=== PATIENT | male | born 1965 | race Caucasian/White ===

== ENCOUNTER 2016-07-09 11:57 | Emergency (ER) | payer MEDICARE, OTHER ==
[~2016-07-09] VITALS: Ht 175.3 cm; Wt 69.0 kg
[~2016-07-09 11:57] MED LIST: ARIP1TAB87 PO; ASPI325T PO; BUSP30TA PO; FLUO20SO3 PO; SIMV40TA PO; TAB-TAB PO; TRAZ100 PO
[2016-07-09 12:14] VITALS: BP 130/82; PULSE 77; RESP 18; TEMP 98.9; O2SAT 95
--- NOTE | 2016-07-09 12:28 | PD ---
HPI Chief Complaint: Edema Time Seen by Provider: 12:24 Travel History International Travel<30 days: No Contact w/Intl Traveler<30days: No Traveled to known affect area: No History of Present Illness HPI 50-year-old male with history of lung cancer currently awaiting chemotherapy, presents to the ER today because he has been having left ankle pains and swelling, had an ultrasound done today from [facility] showing a DVT. His primary care physician sent him in for further evaluation. He denies any new chest pains, shortness of breath, or any other symptoms. Modifying Factors: None Associated Signs & Symptoms: Left leg DVT Risk Factors: Lung cancer PFSH Past Medical History Heart Rhythm Problems: No Cardiac Catheterization: Yes Cardiovascular Problems: Yes (STENTS X 1) High Cholesterol: Yes Chest Pain: Yes Congestive Heart Failure: No Diabetes: No Myocardial Infarction: Yes Past Surgical History Coronary Artery Bypass Graft: No Coronary Stent: Yes Other Surgery: Yes (BILAT INGUINAL HERNIA REPAIR, SKIN CA REMOVAL) Social History Alcohol Use: No Tobacco Use: Yes (2 PPD X 30 YEARS) Substance Use: No Allergies-Medications (Allergen,Severity, Reaction): Coded Allergies: No Known Allergies (Unverified , 07/09/16) Reported Meds & Prescriptions Reported Meds & Active Scripts Active Reported Xanax (Alprazolam) 0.25 Mg Tab 0.25 Mg PO Q8H PRN Symbicort Inh (Budesonide/Formoterol Fumarate) 160-4.5 Mcg/Act Aero 2 Puff INH Q12HR Spiriva Handihaler (Tiotropium Inh) 18 Mcg Cap 18 Mcg INH DAILY 1 capsule = 18 mcg Ventolin Hfa 18 GM Inh (Albuterol Sulfate) 90 Mcg/Act Aer 2 Puff INH Q4-6H PRN Gabapentin 300 Mg Cap 300 Mg PO HS Prozac (Fluoxetine HCl) 40 Mg Cap 60 Mg PO DAILY Aspirin 325 Mg Tab 325 Mg PO HS Abilify (Aripiprazole) 15 Mg Tab 15 Mg PO HS Trazodone (Trazodone HCl) 100 Mg Tab 100 Mg PO HS Review of Systems Except as stated in HPI: all other systems reviewed are Neg Physical Exam Narrative GENERAL: Well-developed middle age white male patient currently not in acute distress. Awake and oriented 3. SKIN: Warm and dry. HEAD: Atraumatic. Normocephalic. EYES: Pupils equal and round. No scleral icterus. No injection or drainage. ENT: No nasal bleeding or discharge. Mucous membranes pink and moist. NECK: Trachea midline. No JVD. CARDIOVASCULAR: Regular rate and rhythm. No murmur appreciated. RESPIRATORY: No accessory muscle use. Clear to auscultation. Breath sounds equal bilaterally. GASTROINTESTINAL: Abdomen soft, non-tender, nondistended. Hepatic and splenic margins not palpable. MUSCULOSKELETAL: No obvious deformities. No clubbing. No cyanosis. No edema. NEUROLOGICAL: Awake and alert. No obvious cranial nerve deficits. Motor grossly within normal limits. Normal speech. PSYCHIATRIC: Appropriate mood and affect; insight and judgment normal. EXTREMITIES: No clubbing, cyanosis, or edema on the right leg. No joint tenderness, effusion, or edema noted. Mild left ankle area edema, mildly tender to palpation. Data Data Last Documented VS Vital Signs Date Time Temp Pulse Resp B/P Pulse Ox O2 Delivery O2 Flow Rate FiO2 07/09/16 12:27 96 Room Air 07/09/16 12:14 98.9 77 18 130/82 Orders Complete Blood Count With Diff (07/09/16 12:24) Basic Metabolic Panel (Bmp) (07/09/16 12:24) Prothrombin Time / Inr (Pt) (07/09/16 12:24) Act Partial Throm Time (Ptt) (07/09/16 12:24) Ct Pulmonary Angiogram (07/09/16 12:24) Iohexol 350 Inj (Omnipaque 350 Inj) (07/09/16 14:26) Labs Laboratory Tests Test 07/09/16 12:30 White Blood Count 9.4 TH/MM3 Red Blood Count 4.76 MIL/MM3 Hemoglobin 14.4 GM/DL Hematocrit 44.2 % Mean Corpuscular Volume 92.7 FL Mean Corpuscular Hemoglobin 30.3 PG Mean Corpuscular Hemoglobin 32.7 % Concent Red Cell Distribution Width 13.6 % Platelet Count 176 TH/MM3 Mean Platelet Volume 7.8 FL Neutrophils (%) (Auto) 75.1 % Lymphocytes (%) (Auto) 14.8 % Monocytes (%) (Auto) 6.2 % Eosinophils (%) (Auto) 2.2 % Basophils (%) (Auto) 1.7 % Neutrophils # (Auto) 7.0 TH/MM3 Lymphocytes # (Auto) 1.4 TH/MM3 Monocytes # (Auto) 0.6 TH/MM3 Eosinophils # (Auto) 0.2 TH/MM3 Basophils # (Auto) 0.2 TH/MM3 CBC Comment DIFF FINAL Differential Comment Prothrombin Time 11.4 SEC Prothromb Time International 1.0 RATIO Ratio Activated Partial 28.3 SEC Thromboplast Time Sodium Level 140 MEQ/L Potassium Level 4.9 MEQ/L Chloride Level 103 MEQ/L Carbon Dioxide Level 30.4 MEQ/L Anion Gap 7 MEQ/L Blood Urea Nitrogen 14 MG/DL Creatinine 1.20 MG/DL Estimat Glomerular Filtration 64 ML/MIN Rate Random Glucose 94 MG/DL Calcium Level 8.4 MG/DL [facility] Medical Decision Making Medical Screen Exam Complete: Yes Emergency Medical Condition: Yes Medical Record Reviewed: Yes Interpretation(s) Last [address] Angiography 07/09/16 1224 Signed Impressions: Service Date/Time: Saturday, July 09, 2016 13:59 - CONCLUSION: 1. 2.3 x 4.7 cm right upper lobe mass with extensive right hilar and mediastinal adenopathy highly suspicious for malignancy. Vitor Campbell MD Laboratory Tests Test 07/09/16 12:30 Neutrophils (%) (Auto) 75.1 % (16.0-70.0) Estimat Glomerular Filtration 64 ML/MIN (>89) Rate Calcium Level 8.4 MG/DL (8.5-10.1) Differential Diagnosis Left leg DVTrule out PE Narrative Course CTA shows mass in the lung but no signs of PE. Lab work is unremarkable. Case is discussed with Dr. Quiroga, patient's primary care doctor, and he is agreeable to having the patient take by mouth anticoagulants and follow-up with him. Return for any worsening in pain, swelling, shortness of breath, or new symptoms as needed. The plan has been discussed with the patient and he states understanding. Diagnosis Primary Impression: DVT (deep venous thrombosis) Med/Other Pt SpecificInfo: Prescription(s) given Scripts Rivaroxaban Starter Pack 15 & 20 mg (Xarelto Starter Pack 15 & 20 mg)1 Tab Tab1 Tab PO DIRECTED #1 PACK Ref 0 Prov:Jarrell Mendoza MD 07/09/16 Disposition: 01 DISCHARGE HOME Condition: Stable Jarrell Mendoza MD Jul 09, 2016 12:28
[2016-07-09 12:44] LABS: BASOPHIL # 0.2 TH/MM3 (0-0.2); BASOPHIL % 1.7 % (0.0-2.0); EOSINOPHIL # 0.2 TH/MM3 (0-0.4); EOSINOPHIL % 2.2 % (0.0-4.0); HEMATOCRIT 44.2 % (39.0-51.0); LYMPH % 14.8 % (9.0-44.0); LYMPHOCYTE # 1.4 TH/MM3 (1.0-4.8); MEAN CELL VOLUME 92.7 FL (80.0-100.0); MEAN CORPUSCULAR HEMOGLOBIN 30.3 PG (27.0-34.0); MEAN CORPUSCULAR HGB CONC 32.7 % (32.0-36.0); MONO % 6.2 % (0.0-8.0); NEUT % 75.1 % (16.0-70.0); PLATELET COUNT 176 TH/MM3 (150-450); RED BLOOD COUNT 4.76 MIL/MM3 (4.50-5.90); RED CELL DISTRIBUTION WIDTH 13.6 % (11.6-17.2); WHITE BLOOD COUNT 9.4 TH/MM3 (4.0-11.0)
[2016-07-09 12:48] LABS: HEMO FLAGS DIFF FINAL
[2016-07-09] MEDS ORDERED: SYMB160A INH (12:52)
[2016-07-09] MEDS ORDERED: ABIL15TA2 PO (12:52)
[2016-07-09] MEDS ORDERED: VENTAER INH (12:52)
[2016-07-09] MEDS ORDERED: GABA300C5 PO (12:52)
[2016-07-09] MEDS ORDERED: ASPI325T PO (12:52)
[2016-07-09] MEDS ORDERED: PROZ40CA PO (12:52)
[2016-07-09] MEDS ORDERED: SPIRCAP INH (12:52)
[2016-07-09] MEDS ORDERED: TRAZ100T4 PO (12:52)
[2016-07-09] MEDS ORDERED: ALPR.25 PO (12:52)
[2016-07-09 12:53] LABS: POTASSIUM 4.9 MEQ/L (3.5-5.1)
[2016-07-09 12:56] LABS: BICARBONATE 30.4 MEQ/L (21.0-32.0)
[2016-07-09 13:03] LABS: APTT (PATIENT) 28.3 SEC (24.3-30.1); PROTHROMBIN TIME - PATIENT 11.4 SEC (9.8-11.6)
[2016-07-09] MEDS ORDERED: IOHEXOL 350 MG/ML 10 ML VIAL (for RAD DIAG) IV ONE (14:26)
--- NOTE | 2016-07-09 14:35 | RADHPO ---
EXAM DATE/TIME: 07/09/2016 13:59 [facility] COMPARISON: No previous studies available for comparison. INDICATIONS : Evaluate for pulmonary embolism. Recent deep vein thrombosis diagnosis. IV CONTRAST: 65 cc Omnipaque 350 (iohexol) IV RADIATION DOSE: 10.00 CTDIvol (mGy) MEDICAL HISTORY : Cardiovascular disease. Carcinoma, lung. Deep venous thrombosis. SURGICAL HISTORY : Coronary artery stent. ENCOUNTER: Initial ACUITY: 1 day PAIN SCALE: 0/10 LOCATION: chest TECHNIQUE: Volumetric scanning of the chest was performed using a pulmonary embolism protocol MIP images were re constructed. Using automated exposure control and adjustment of the mA and/or kV according to patien t size, radiation dose was kept as low as reasonably achievable to obtain optimal diagnostic quality images. FINDINGS: The examination is of excellent diagnostic quality. No pulmonary embolus is identified. The exam demonstrates a 2.7 x 4.7 cm spiculated, partially cavitary mass in the right lung apex. In a ddition, the study demonstrates numerous enlarged nodes within the right srikanth, the anterior mediastin um and the middle mediastinum. The largest measures 2.3 cm. These findings are highly suspicious for malignancy. The lesion is in a location which would be readily amenable to CT-guided biopsy. The remainder of the pulmonary parenchyma demonstrates COPD changes. The limited as portions of upper abdomen are unremarkable. The visualized bony structures are grossly intact. CONCLUSION: 1. 2.3 x 4.7 cm right upper lobe mass with extensive right hilar and mediastinal adenopathy highly hernandez spicious for malignancy. Vitor Campbell MD on July 09, 2016 at 14:30 Board Certified Radiologist. This report was verified electronically.
[2016-07-09] MEDS ORDERED: RIVA1TAB PO (14:52)
[2016-07-09 15:00] VITALS: BP 127/81
== END 2016-07-09 15:11 | disposition home or self-care (01) ==
LOC: PHED 11:57
DX: I82.4Z2 Acute embolism and thrombosis of unspecified deep veins of left distal lower extremity (principal); E78.00 Pure hypercholesterolemia, unspecified; I25.2 Old myocardial infarction; C34.90 Malignant neoplasm of unspecified part of unspecified bronchus or lung; Z95.818 Presence of other cardiac implants and grafts; Z87.891 Personal history of nicotine dependence
CPT/HCPCS: 71275; 80048; 85025; 85610; 85730; 99284; Q9967

== ENCOUNTER 2016-08-13 06:41 | Day surgery (SDC) | payer MEDICARE, MEDICAID ==
[~2016-08-13] VITALS: Ht 172.7 cm; Wt 67.4 kg
[2016-08-13] VITALS (7 sets, daily range): BP systolic 130–148; BP diastolic 79–102; PULSE 72–111; RESP 18–20; TEMP 98.2–98.4; O2SAT 90–94
[~2016-08-13 06:41] MED LIST changes: +ABIL15TA2 PO; +ALPR.25 PO; -ARIP1TAB87 PO; -BUSP30TA PO; -FLUO20SO3 PO; +GABA300C5 PO; +PROZ40CA PO; +RIVA1TAB PO; -SIMV40TA PO; +SPIRCAP INH; +SYMB160A INH; -TAB-TAB PO; -TRAZ100 PO; +TRAZ100T4 PO; +VENTAER INH
[2016-08-13] MEDS ORDERED: APIX2.5T PO (07:42)
[2016-08-13] MEDS ORDERED: LEVO750T33 PO (07:43)
[2016-08-13] MEDS ORDERED: PERC10TA27 PO (07:44)
[2016-08-13] MEDS: CHLORHEXIDINE GLUCONATE 2 % 1 PACK (2 CLOTHS) TOPICAL SCH ×2 (07:58→08:27)
[2016-08-13] MEDS: POVIDONE IODINE 5% (ANTISEPSIS KIT) 4 APPLICATIONS EACH NARE SCH ×2 (07:58→08:27)
[2016-08-13] MEDS ORDERED: VANCOMYCIN 1000 MG/NS 250 ML - implanted port/tunneled catheter IV SCH ×2 (08:00)
[2016-08-13] MEDS ORDERED: SODIUM CHLORIDE 0.9% 1000 ML IV SCH (08:00)
[2016-08-13] MEDS ORDERED: ceFAZolin 2 GM PREMIX 50 ML - implanted port/tunneled catheter insertion IV SCH (08:00)
[2016-08-13] MEDS ORDERED: fentaNYL CITRATE 250 MCG/5 ML AMP ONE (09:05)
[2016-08-13] MEDS ORDERED: MIDAZOLAM HCL 5 MG/5 ML VIAL ONE (09:05)
[2016-08-13] MEDS ORDERED: LIDOCAINE 1%/EPINEPHrine 1:100,000 SOLN 20 ML VIAL ONE (09:15)
[2016-08-13] MEDS ORDERED: SODIUM CHLORIDE 0.9% FLUSH 10 ML FLUSH IVF PRN (10:30)
--- NOTE | 2016-08-13 10:47 | PD.RAD ---
Post Procedure Progress Note Pre Procedure Diagnosis: (1) Lung cancer Post Procedure Diagnosis: (1) Lung cancer Procedure Date: Aug 13, 2016 Supervising Radiologist: Ted Bell Proceduralist/Assist: RT Adalid(R) Anesthesia: Local, Analgesia, Conscious Sedation Plan of Activity Patient to Unit: ROPU Patient Condition: Good See PACS Report for procedural detail/treatment Central Venous Access Device Procedure 1 Right Internal Jugular Infusaport Placement single lumen Iraqi: 8 Ted Bell MD Aug 13, 2016 10:47
--- NOTE | 2016-08-14 12:26 | RADRPT ---
EXAM DATE/TIME: 08/13/2016 10:07 [facility] COMPARISON: No previous studies available for comparison. INDICATIONS : Patient with lung cancer in need of [id number] placement. MEDICAL HISTORY : CAD, [place], HLD, COPD, DVT, Osteoporosis, Lung cancer with mets SURGICAL HISTORY : Bilateral inguinal hernia repair, Colonoscopy, Cardiac stent ENCOUNTER: Initial ACUITY: 1 month PAIN SCORE: 0/10 FLUORO TIME: 0.5 minutes IMAGE SERIES: 1 SEDATION TIME: 45 minutes ACCESS: Right internal jugular vein SEDATION: 1.) 5 mg midazolam (Versed) IV 2.) 250 mcg fentanyl (Sublimaze) IV Prophylactic antibiotics were administered with appropriate pre-procedure timing. Vancomycin within 2 hours of procedure, Ancef (or alternative) within 1 hour of procedure. DEVICE: 1. 8 Marshallese single lumen Smart port with Vortex PROCEDURE : 1. Continuous pulse oximetry and EKG monitoring. 2. Intravenous conscious sedation. 3. Ultrasound guidance for venous access. 4. Fluoroscopic guided implantable central venous port placement. The patient was placed supine. The neck was prepped in sterile fashion. Full sterile technique was u sed, including cap, mask, sterile gloves and gown, and a large sterile sheet. Hand hygiene and 2% ch lorhexidine Betadine was utilized per protocol for cutaneous antisepsis with appropriate dry time for site. The skin and subcutaneous tissues were infiltrated with local anesthetic solution. Under direct ultrasound guidance, central venous access was accomplished in the targeted vessel. The ultrasound images depicting access guidance were stored and saved to PACS for permanent record. A s ubcutaneous pocket was created using blunt dissection. The port was introduced to the pocket. The c atheter tubing was fed through a subcutaneous tunnel to the venotomy site. The catheter tubing was c ut to a suitable length and then was introduced through a valved Peel-Away sheath and positioned with catheter tubing tip at the cavo-atrial junction level. The pocket incision was closed with subcutic ular Vicryl suture. Steri-Strips were applied. The port was flushed and locked with heparin solutio n per protocol. Sterile dressing was applied to the site. The patient tolerated the procedure well. Conscious sedation was performed with the prescribed dosages and duration as above in the presence of an independent trained radiology nurse to assist in the monitoring of the patient. EKG and oximetry remained stable throughout the procedure. The patient tolerated the procedure well and there were no complications. The patient was sent to post anesthesia recovery in stable condition. CONCLUSION: Uncomplicated ultrasound and fluoroscopic guided implanted central venous port catheter placement as described in detail above. An 8 Marshallese Power port was placed. Ted Bell MD on August 14, 2016 at 12:24 Board Certified Radiologist. This report was verified electronically.
== END 2016-08-13 12:35 | disposition home or self-care (01) ==
LOC: HROP 06:41 → HRIP 06:46 → HROP 12:35
PROVIDERS: ATTEND Internal Medicine Hematology & Oncology
DX: C34.90 Malignant neoplasm of unspecified part of unspecified bronchus or lung (principal); Z86.718 Personal history of other venous thrombosis and embolism; M81.0 Age-related osteoporosis without current pathological fracture; J44.9 Chronic obstructive pulmonary disease, unspecified; E78.5 Hyperlipidemia, unspecified; I25.10 Atherosclerotic heart disease of native coronary artery without angina pectoris; I25.2 Old myocardial infarction
CPT/HCPCS: 36561; 76937; 77001; 99152; 99153; C1788; J0690; J1642; J2250; J3010; J3370; J7030; J7050

== ENCOUNTER 2016-08-15 06:28 | Inpatient (IN) | payer MEDICARE, MEDICAID ==
[2016-08-15] VITALS (21 sets, daily range): BP systolic 121–165; BP diastolic 81–111; PULSE 96–118; RESP 18–45; TEMP 97.4–99.2; O2SAT 81–100
[~2016-08-15] VITALS: Ht 175.3 cm; Wt 80.6 kg
[~2016-08-15 06:28] MED LIST changes: +APIX2.5T PO; -ASPI325T PO; +LEVO750T33 PO; +PERC10TA27 PO; -RIVA1TAB PO
[2016-08-15] MEDS ORDERED: SODIUM CHLOR 0.9% 1000 ML IV SCH (07:15)
[2016-08-15] MEDS ORDERED: SODIUM CHLORIDE 0.9% FLUSH 10 ML FLUSH IV FLUSH PRN ×2 (07:15→12:15)
[2016-08-15] MEDS ORDERED: HYDR-3366 PO (07:41)
[2016-08-15] MEDS ORDERED: LIDOCAINE 1%/EPINEPHrine 1:100,000 SOLN 20 ML VIAL ONE (07:42)
--- NOTE | 2016-08-15 07:50 | RADRPT ---
EXAM DATE/TIME: 08/15/2016 07:12 [facility] COMPARISON: CHEST SINGLE AP, November 22, 2012, 6:36. CT PULMONARY ANGIOGRAM, July 09, 2016, 13:59. INDICATIONS : Post port placement on 08/13/16 MEDICAL HISTORY : CAD, [place], HLD, COPD, DVT, Osteoporosis, Lung cancer with mets SURGICAL HISTORY : Bilateral inguinal hernia repair, Colonoscopy, Cardiac stent ENCOUNTER: Initial ACUITY: 1 day PAIN SCORE: 0/10 LOCATION: chest FINDINGS: Portable upright expiratory views of the chest demonstrate a normal-sized cardiac silhouette. Right c hest wall [id number] is present with distal tip near the cavoatrial junction. No effusion or pneum othorax is visualized. Masses visualized in the right upper lobe. Bones demonstrate no acute finding. CONCLUSION: 1. No pneumothorax is visualized. Right chest wall [id number] distal tip is at the cavoatrial junc tion. 2. Right upper lobe pulmonary mass is again visualized. Neftaly Rodriguez MD on August 15, 2016 at 7:47 Board Certified Radiologist. This report was verified electronically.
[2016-08-15] MEDS ORDERED: MIDAZOLAM HCL 5 MG/5 ML VIAL ONE (08:18)
[2016-08-15] MEDS ORDERED: fentaNYL CITRATE 250 MCG/5 ML AMP ONE (08:18)
--- NOTE | 2016-08-15 09:51 | RADRPT ---
EXAM DATE/TIME: 08/15/2016 08:22 [facility] COMPARISON: CT PULMONARY ANGIOGRAM, July 09, 2016, 13:59. INDICATIONS : Right lung mass. SEDATION TIME: 15 minutes BIOPSY SITE: Right lung MEDICATION(S): 1.) 3 mg midazolam (Versed) IV 2.) 150 mcg fentanyl (Sublimaze) IV DEVICE(S): 1.) 18 gauge Vidal blunt needle 10cm 2.) 20 gauge Temno core biopsy needle 15cm MEDICAL HISTORY : Chronic obstructive pulmonary disease. Cardiovascular disease. Smoker SURGICAL HISTORY : None. ENCOUNTER: Initial ACUITY: 1 day PAIN SCORE: 0/10 LOCATION: chest A total of five core specimen(s) were obtained and sent to the laboratory for pathologic evaluation. PROCEDURE: 1. CT guided lung biopsy. 2. Conscious sedation with continuous EKG and oximetry monitoring. Prior to the procedure informed consent was obtained. Any appropriate prior imaging studies were rev iewed. Using automated exposure control and adjustment of the mA and/or kV according to patient size, radiation dose was kept as low as reasonably achievable to obtain optimal diagnostic quality images. The site was prepped in a sterile fashion. Full sterile technique was used, including cap, mask, george rile gloves and gown and a large sterile sheet. Hand hygiene and 2% chlorhexidine and/or betadine/al cohol prep was utilized per protocol for cutaneous antisepsis. The skin and subcutaneous tissues wer e infiltrated with local anesthetic solution. With CT guidance the right upper lobe lung mass was localized. Biopsy was performed using the prescri bed needle as above. Adequate hemostasis was obtained with compression at the puncture site. Follow-up CT scan reveals no pneumothorax. There is mild perilesional hemorrhage medially. Conscious sedation was performed with the prescribed dosages and duration as above in the presence of an independent trained radiology nurse to assist in the monitoring of the patient. EKG and oximetry remained stable throughout the procedure. The patient tolerated the procedure well and there were no complications. The patient was sent to Radiology Outpatient Unit in stable condition. CONCLUSION: Uncomplicated CT guided biopsy of the right upper lobe lung mass. Neftaly Rodriguez MD on August 15, 2016 at 9:48 Board Certified Radiologist. This report was verified electronically.
--- NOTE | 2016-08-15 11:40 | RADRPT ---
EXAM DATE/TIME: 08/15/2016 10:20 [facility] COMPARISON: CHEST EXPIRATION ONLY, August 15, 2016, 7:12. INDICATIONS : Evaluate pneumothorax. MEDICAL HISTORY : Carcinoma, lung. Chronic obstructive pulmonary disease. Cardiovascular disease. Smoker. SURGICAL HISTORY : Infusaport. ENCOUNTER: Subsequent ACUITY: 1 day PAIN SCORE: 2/10 LOCATION: Bilateral chest FINDINGS: Portable AP views of the chest demonstrate no pneumothorax following recent right upper lobe lung mas s biopsy. Opacity remains present in the right upper lobe. CONCLUSION: No pneumothorax following recent right lung biopsy. Neftaly Rodriguez MD on August 15, 2016 at 11:37 Board Certified Radiologist. This report was verified electronically.
--- NOTE | 2016-08-15 12:11 | RADRPT ---
EXAM DATE/TIME: 08/15/2016 11:51 [facility] COMPARISON: CHEST EXPIRATION ONLY, August 15, 2016, 10:20. INDICATIONS : Post needle biopsy of lung, short of breath MEDICAL HISTORY : Carcinoma, lung. Chronic obstructive pulmonary disease. SURGICAL HISTORY : infusaport ENCOUNTER: Subsequent ACUITY: 1 day PAIN SCORE: 2/10 LOCATION: Bilateral chest FINDINGS: Portable upright expiratory AP view of the chest demonstrates a tiny right apical pneumothorax follow ing right upper lobe lung mass biopsy. Opacity is present in the right lung apex. CONCLUSION: There is a new tiny apical right pneumothorax. Neftaly Rodriguez MD on August 15, 2016 at 12:08 Board Certified Radiologist. This report was verified electronically.
[2016-08-15] MEDS ORDERED: hydrALAZINE HCL 20 MG/ML VIAL IV PRN (12:15)
[2016-08-15] MEDS ORDERED: ALUMINUM/MAGNESIUM/SIMETH 30 ML CUP PO PRN (12:15)
[2016-08-15] MEDS ORDERED: ALPRAZolam 0.25 MG TAB PO PRN (12:15)
[2016-08-15] MEDS ORDERED: ENALAPRILAT 1.25 MG/ML VIAL IV PRN (12:15)
[2016-08-15] MEDS ORDERED: ACETAMINOPHEN/HYDROcodone 325 MG/10 MG TAB PO PRN (12:15)
[2016-08-15] MEDS ORDERED: NALOXONE HCL 0.4 MG/ML AMP IV PUSH PRN (12:15)
[2016-08-15] MEDS ORDERED: ONDANSETRON HCL 4 MG/2 ML VIAL IV PRN (12:15)
[2016-08-15] MEDS ORDERED: RESP: ALBUTEROL 2.5 MG/3 ML NEB (PRN) INH (12:15)
[2016-08-15] MEDS ORDERED: RESP: ALBUTEROL 2.5 MG/IPRATROPIUM 0.5 MG NEB (SCH) NEB ONE ×2 (12:15→15:00)
[2016-08-15] MEDS ORDERED: cloNIDine HCL 0.1 MG TAB PO PRN (12:15)
[2016-08-15] MEDS ORDERED: CALCIUM CARBONATE 500 MG CHEWABLE TAB CHEW PRN (12:15)
[2016-08-15 12:34] LABS: BLOOD GAS BASE EXCESS 2.1 mmol/L (-2-2); BLOOD GAS CARBOXYHEMOGLOBIN 2.9 % (0-4); BLOOD GAS HCO3 27 mmol/L (22-26); BLOOD GAS METHEMOGLOBIN 1.1 % (0-2); BLOOD GAS O2 HGB SATURATION 96 % (90-100); BLOOD GAS PCO2 46 mmHg (38-42); BLOOD GAS PO2 239 mmHg (61-120); CRITICAL VALUE NO; TEMP CORR TO 98.6
[2016-08-15 12:35] LABS: DRAW SITE LT RADIAL; LITER FLOW 15 L/M; NUMBER OF ARTERIAL PUNCTURES 1; OXYGEN DEVICE PRB; STAT NO; ULNAR PULSE PRESENT
[2016-08-15] MEDS: GABAPENTIN 100 MG CAP PO SCH ×2 (13:00→18:00)
[2016-08-15] MEDS ORDERED: CHLORHEXIDINE GLUCONATE 2 % 1 PACK (2 CLOTHS) TOP PRN (13:15)
[2016-08-15] MEDS ORDERED: MISCELLANEOUS NURSING INFORMATION XX SCH (13:15)
[2016-08-15] MEDS ORDERED: HEPARIN-D5W INJ 250 ML IV SCH (13:15)
[2016-08-15] MEDS ORDERED: IOHEXOL 350 MG/ML 10 ML VIAL (for RAD DIAG) IV ONE (13:29)
--- NOTE | 2016-08-15 13:32 | HHI.HP ---
[facility]ician Sergei Quiroga Admission Diagnosis Diagnoses: Chief Complaint: Shortness of breath Travel History International Travel<30 Days: No Contact w/Intl Traveler <30 Da: No Traveled to Known Affected Are: No History of Present Illness This is a 50-year-old male seen in [facility]. I was consulted by by the radiologist to evaluate patient complaining of shortness of breath and for medical management. He reports of increasing shortness of breath for the past 2 days. He has dyspnea on exertion but no leg swelling and pain, weight gain, fever, chest pain, cough and wheezing. He has history of COPD and continues to smoke. He also has a history of left lower extremity DVT diagnosed a few months ago and has been off Eliquis for at least a week because of planned procedures he had a port placement 2 days ago and a lung biopsy secondary to right lung mass earlier today. Serial chest x-ray shows a tiny right apical pneumothorax which according to the radiologist should not cause this significant dyspnea. He was also hypoxic 81% on room air. On 4 L he only improved to 85% and has been placed on nonrebreather. Discussed with Dr. Gil and [facility] RN, will admit patient to ICU and obtain CTA and restart anticoagulation Review of Systems Constitutional: COMPLAINS OF: Weight loss, DENIES: Diaphoretic episodes, Fatigue, Fever, Weight gain, Chills, Dizziness, Change in appetite, Night Sweats Endocrine: DENIES: Heat/cold intolerance, Polydipsia, Polyuria, Polyphagia Eyes: DENIES: Blurred vision, Diplopia, Vision loss, Photosensitivity Ears, nose, mouth, throat: DENIES: Tinnitus, Vertigo, Throat pain, Hoarseness, Epistaxis, Odynophagia Respiratory: COMPLAINS OF: Cough, Shortness of breath, DENIES: Wheezing, Hemoptysis, Sputum production Cardiovascular: COMPLAINS OF: Dyspnea on Exertion, DENIES: Chest pain, Palpitations, Syncope, PND, Lower Extremity Edema, Orthopnea, Claudication Gastrointestinal: DENIES: Abdominal pain, Black stools, Bloody stools, Constipation, Diarrhea, Nausea, Vomiting, Difficulty Swallowing, Anorexia Genitourinary: DENIES: Urinary frequency, Urinary incontinence, Urgency, Hematuria, Dysuria, Nocturia, Penile Discharge Integumentary: DENIES: Rash Neurologic: DENIES: Headache, Localized weakness, Seizures, Tremor, Poor Balance Psychiatric: DENIES: Anxiety, Confusion, Depression, Hallucinations, Agitation , Suicidal Ideation, Homicidal Ideation, Delusions Past Family Social History Past Medical History As previously mentioned. History of coronary artery disease status post [place]/ stent, hyperlipidemia and bipolar disorder Past Surgical History As previously mentioned. Hernia repair, skin cancer removal Reported Medications Symbicort, and Colace, gabapentin, Prozac, trazodone, Spiriva, Abilify, Xanax, inhalers, Hurst and Levaquin Allergies: Coded Allergies: No Known Allergies (Unverified , 07/09/16) Family History Lung cancer Social History Continues to smoke. Quit drinking. Physical Exam Vital Signs Vital Signs Date Time Temp Pulse Resp B/P Pulse Ox O2 Delivery O2 Flow Rate FiO2 08/15/16 12:23 Partial Non-Rebreather 15.00 08/15/16 11:55 85 Nasal Cannula 15.00 100 08/15/16 11:40 85 Nasal Cannula 6.00 08/15/16 11:40 117 24 155/111 91 08/15/16 11:40 91 Nasal Cannula 4.00 08/15/16 10:50 91 Nasal Cannula 2.00 08/15/16 10:50 107 21 137/97 92 08/15/16 10:50 92 Nasal Cannula 2.00 08/15/16 10:20 91 Nasal Cannula 2.00 08/15/16 10:20 108 22 133/92 91 08/15/16 10:20 91 Nasal Cannula 2.00 08/15/16 09:50 92 Nasal Cannula 1.00 08/15/16 09:35 103 21 127/88 92 08/15/16 09:35 92 Nasal Cannula 1.00 08/15/16 09:30 95 Nasal Cannula 2.00 08/15/16 09:20 95 Nasal Cannula 3.00 08/15/16 09:20 95 Nasal Cannula 2.00 08/15/16 09:20 106 20 136/96 95 08/15/16 09:05 99.2 114 22 144/91 96 08/15/16 09:05 96 Nasal Cannula 3.00 08/15/16 09:05 95 Nasal Cannula 3.00 08/15/16 07:29 95 Nasal Cannula 4.00 08/15/16 06:58 98.3 118 20 137/90 81 Physical Exam GENERAL: This is a well-nourished, well-developed critically ill patient, in respiratory distress on partial rebreather. SKIN: Diaphoretic HEAD: Atraumatic. Normocephalic. No temporal or scalp tenderness. EYES: Pupils equal round and reactive. Extraocular motions intact. No scleral icterus. No injection or drainage. ENT: Nose without bleeding, purulent drainage or septal hematoma. Throat without erythema, tonsillar hypertrophy or exudate. Uvula midline. Airway patent. NECK: Trachea midline. No JVD or lymphadenopathy. Supple, nontender, no meningeal signs. CARDIOVASCULAR: Tachycardic RESPIRATORY: Decreased breath sounds with mild expiratory wheezes. Tachypneic with retractions GASTROINTESTINAL: Abdomen soft, non-tender, nondistended. No guarding. MUSCULOSKELETAL: Extremities without clubbing, cyanosis, or edema. No joint tenderness, effusion, or edema noted. No calf tenderness. Negative Homans sign bilaterally. NEUROLOGICAL: Awake and alert. Cranial nerves II through XII intact. Motor and sensory grossly within normal limits. Five out of 5 muscle strength in all muscle groups. Normal speech. Laboratory Laboratory Tests Test 08/15/16 12:24 Blood Gas Puncture Site LT RADIAL Blood Gas Patient Temperature 98.6 Blood Gas HCO3 27 Blood Gas Base Excess 2.1 Blood Gas Oxygen Saturation 96 Arterial Blood pH 7.38 Arterial Blood Partial 46 Pressure CO2 Arterial Blood Partial 239 Pressure O2 Arterial Blood Oxygen Content 18.0 Arterial Blood 2.9 Carboxyhemoglobin Arterial Blood Methemoglobin 1.1 Blood Gas Hemoglobin 13.0 Oxygen Delivery Device PRB Blood Gas Liter Flow 15 Imaging Last Impressions Chest X-Ray 08/15/16 1200 Signed Impressions: Service Date/Time: July 11:51 - CONCLUSION: There is a new tiny apical right pneumothorax. Neftaly Rodriguez MD Lung Biopsy CT 08/15/16 0000 Signed Impressions: Service Date/Time: July 08:22 - CONCLUSION: Uncomplicated CT guided biopsy of the right upper lobe lung mass. Neftaly Rodriguez MD Assessment and Plan Problem List: (1) Lung cancer ICD Code: C34.90 Status: Acute (2) DVT (deep venous thrombosis) ICD Code: I82.409 Status: Acute Assessment and Plan This is a 50-year-old male who reports of increasing shortness of breath for the past 2 days. He has dyspnea on exertion but no leg swelling and pain, weight gain, fever, chest pain, cough and wheezing. He has history of COPD and continues to smoke. He also has a history of left lower extremity DVT diagnosed a few months ago and has been off Eliquis for at least a week because of planned procedures he had a port placement 2 days ago and a lung biopsy secondary to right lung mass earlier today. Serial chest x-ray shows a tiny right apical pneumothorax which according to the radiologist should not cause this significant dyspnea. He was also hypoxic 81% on room air. Acute hypoxic respiratory failure. Suspect PE with history of DVT off anticoagulation for at least a week. Admit to ICU. Obtain stat CTA and start anticoagulation. Discussed with the critical care medicine, initiate heparin drip in case radiology needs to place chest tube. Continue oxygen keep saturation at least 92% Lung mass status post lung biopsy with a tiny apical right pneumothorax. Repeat chest x-ray. Further management per radiology COPD exacerbation. Start IV steroids and nebulization. Tobacco cessation Chronic medical conditions of coronary artery disease status post [place]/stent, hyperlipidemia and bipolar disorder. Continue outpatient medications as appropriate DVT prophylaxis with SCD and chemical anticoagulation He is critical and will be monitored in the ICU. Hi likelihood fo decompensation requiring intubation and mechanical ventilation. Critical time spent 45 mins Discussed Condition With pt and family Physician Certification 2 Midnight Certification Type: Admission for Inpatient Services Order for Inpatient Services The services are ordered in accordance with Medicare regulations or non- Medicare payer requirements, as applicable. In the case of services not specified as inpatient-only, they are appropriately provided as inpatient services in accordance with the 2-midnight benchmark. Estimated LOS (days): 2 days is the estimated time the patient will need to remain in the hospital, assuming treatment plan goals are met and no additional complications. Post-Hospital Plan: Not yet determined Kwaku Dumont MD Aug 15, 2016 13:32
[2016-08-15 13:38] LABS: HEMATOCRIT 39.6 % (39.0-51.0); MEAN CELL VOLUME 92.3 FL (80.0-100.0); MEAN CORPUSCULAR HEMOGLOBIN 30.5 PG (27.0-34.0); MEAN CORPUSCULAR HGB CONC 33.1 % (32.0-36.0); PLATELET COUNT 117 TH/MM3 (150-450); RED BLOOD COUNT 4.29 MIL/MM3 (4.50-5.90); RED CELL DISTRIBUTION WIDTH 13.8 % (11.6-17.2); REVIEW FLAG FINAL; WHITE BLOOD COUNT 15.4 TH/MM3 (4.0-11.0)
--- NOTE | 2016-08-15 13:40 | RADRPT ---
EXAM DATE/TIME: 08/15/2016 12:55 [facility] COMPARISON: CHEST EXPIRATION ONLY, August 15, 2016, 11:51. INDICATIONS : Evaluate for pneumothorax after post lung biopsy. MEDICAL HISTORY : None. SURGICAL HISTORY : Port placement. ENCOUNTER: Subsequent ACUITY: 1 day PAIN SCORE: 1/10 LOCATION: Right chest. FINDINGS: Portable AP views of the chest demonstrate a normal-sized cardiac silhouette. There is a stable tiny right pneumothorax visualized at the apex. Right apical opacity remains present. CONCLUSION: Stable tiny right apical pneumothorax. Neftaly Rodriguez MD on August 15, 2016 at 13:34 Board Certified Radiologist. This report was verified electronically.
--- NOTE | 2016-08-15 13:47 | RADRPT ---
EXAM DATE/TIME: 08/15/2016 13:22 [facility] COMPARISON: CT PULMONARY ANGIOGRAM, July 09, 2016, 13:59. INDICATIONS : Evalulate for embolism, abnormal finding in lung. IV CONTRAST: 75 cc Omnipaque 350 (iohexol) IV RADIATION DOSE: 23.54 CTDIvol (mGy) MEDICAL HISTORY : Cardiovascular disease. Lung cancer. SURGICAL HISTORY : Lung biospy. ENCOUNTER: Initial ACUITY: 2 days PAIN SCALE: 4/10 LOCATION: Bilateral chest TECHNIQUE: Volumetric scanning of the chest was performed using a pulmonary embolism protocol MIP images were re constructed. Using automated exposure control and adjustment of the mA and/or kV according to patien t size, radiation dose was kept as low as reasonably achievable to obtain optimal diagnostic quality images. FINDINGS: PULMONARY ARTERIES: There are is a segmental or subsegmental PTE in the right lower lobe pulmonary arteries and there is a subsegmental central filling defect representing PE in one of the left lower lobe arterial vessels. These are new since the prior exam. LUNGS: A small right pneumothorax is present. There are no signs of tension. The spiculated right upper lobe mass remains present and measures approximately 4.9 x 2.6 cm. There is mild consolidation in the pos terior segment of the right upper lobe adjacent to the fissure. There is mild centrilobular emphysema . There is a trace right pleural effusion. PLEURAE: Trace right pleural effusion. MEDIASTINUM: Coronary artery calcification is present. There is mediastinal and right hilar lymphadenopathy unchan ged from the prior study. A right paratracheal lymph node measures 2.3 x 1.6 cm. MUSCULOSKELETAL: There are degenerative changes of the thoracic spine but no lytic or blastic lesion is seen. MISCELLANEOUS: The visualized upper abdominal organs demonstrate no acute abnormality. CONCLUSION: 1. There is acute appearing PE in the right lower lobe segmental and left lower lobe subsegmental pul monary arteries. These PE are new since the prior CT from 07/09/2016. 2. Small right pneumothorax. 3. Right upper lobe pulmonary mass remains present and measures 4.9 cm. There is associated mediastin al, right hilar, and right supraclavicular lymphadenopathy suspicious for lymphatic spread of disease . Neftaly Rodriguez MD on August 15, 2016 at 13:35 Board Certified Radiologist. This report was verified electronically.
[2016-08-15 13:51] LABS: APTT (PATIENT) 33.8 SEC (24.3-30.1); INTERNATIONAL NORMALIZED RATIO 1.2 RATIO; PROTHROMBIN TIME - PATIENT 13.5 SEC (9.8-11.6)
[2016-08-15] MEDS ORDERED: methylPREDNISolone SOD SUCC 125 MG/2 ML VIAL IVP SCH (14:00)
[2016-08-15] MEDS ORDERED: ENOXAPARIN SODIUM 80 MG/0.8 ML SYRINGE SQ ONE (14:00)
[2016-08-15] MEDS ORDERED: ETOMIDATE 40 MG/20 ML VIAL ONE (14:05)
[2016-08-15] MEDS ORDERED: LIDOCAINE 1%/EPINEPHrine 1:100,000 SOLN 20 ML VIAL INFIL ONE (14:15)
[2016-08-15] MEDS ORDERED: LIDOCAINE 1%/EPINEPHrine 1:100,000 SOLN 30 ML VIAL ONE (14:15)
[2016-08-15] MEDS ORDERED: MORPHINE SULFATE 8 MG/ML INJ ONE (14:18)
[2016-08-15] MEDS ORDERED: RESP: ALBUTEROL 2.5 MG/IPRATROPIUM 0.5 MG NEB (PRN) NEB (15:00)
[2016-08-15] MEDS ORDERED: methylPREDNISolone SOD SUCC 125 MG/2 ML VIAL IV PUSH ONE (15:00)
[2016-08-15 15:08] LABS: BLOOD GAS BASE EXCESS -0.6 mmol/L (-2-2); BLOOD GAS CARBOXYHEMOGLOBIN 1.5 % (0-4); BLOOD GAS HCO3 27 mmol/L (22-26); BLOOD GAS METHEMOGLOBIN 1.2 % (0-2); BLOOD GAS O2 HGB SATURATION 97 % (90-100); BLOOD GAS OXYGEN CONTENT 19.3 Vol % (12.0-20.0); BLOOD GAS PCO2 72 mmHg (38-42); BLOOD GAS PO2 323 mmHg (61-120); BLOOD GAS TOTAL HGB 13.7 G/DL (12.0-16.0); TEMP CORR TO 98.6
[2016-08-15 15:09] LABS: CRITICAL VALUE YES; DRAW SITE RT RADIAL; LITER FLOW 15 L/M; NUMBER OF ARTERIAL PUNCTURES 1; OXYGEN DEVICE PRB; STAT NO; ULNAR PULSE PRESENT
[2016-08-15] MEDS: RESP: ALBUTEROL 2.5 MG/IPRATROPIUM 0.5 MG NEB (SCH) INH ×2 (15:53→19:39)
--- NOTE | 2016-08-15 16:01 | RADRPT ---
EXAM DATE/TIME: 08/15/2016 14:33 [facility] COMPARISON: CHEST EXPIRATION ONLY, August 15, 2016, 12:55. CHEST SINGLE AP, November 22, 2012, 6:36. INDICATIONS : Right chest tube placement. MEDICAL HISTORY : Cardiovascular disease. Lung cancer. SURGICAL HISTORY : Lung biopsy. ENCOUNTER: Subsequent ACUITY: 1 day PAIN SCORE: Non-responsive. LOCATION: chest FINDINGS: 2 AP views of the chest were obtained and demonstrate interval placement of right-sided chest tube pr ojected over the midlung. There is a minute left apical pneumothorax present which is improved from t he prior study. This measures up to approximately 5 mm. The right-sided implantable port catheter rem ains in place. Patchy opacity is now noted in the right lung. The heart size is within normal limits. There is no effusion. CONCLUSION: 1. Interval placement of right-sided chest tube with decrease in small pneumothorax with minute apica l residual. 2. Patchy opacity in the right lung. Barrett Holman MD on August 15, 2016 at 15:57 Board Certified Radiologist. This report was verified electronically.
[2016-08-15 16:28] LABS: APTT (PATIENT) 28.7 SEC (24.3-30.1)
--- NOTE | 2016-08-15 16:40 | EC ---
Study Study Date:08/15/2016 STUDY CONCLUSIONS SUMMARY - Procedure narrative: Transthoracic echocardiography. Image quality was poor. Scanning was performed from the parasternal, apical, and subcostal acoustic windows. - Left ventricle: The cavity size was at the upper limits of normal. Wall thickness was normal. Systolic function was very difficult to assess. The estimated ejection fraction was roughly 35% to 40%. Wall motion was very difficult to assess. There is suggestion of moderate mid to distal inferior hypokinesis and moderate distal lateral hypokinesis. The anterior wall is poorly visualized. - Tricuspid valve: Trace regurgitation. - Pulmonary arteries: PA peak pressure: 53mm Hg (S). If LV function is below 40, please consider prescribing an ACEI or ARB or document rationale for non-use. PROCEDURE DATA STUDY STATUS: Elective. Procedure: Transthoracic echocardiography. Image quality was poor. Scanning was performed from the parasternal, apical, and subcostal acoustic windows. Study completion: The patient tolerated the procedure well. Transthoracic echocardiography. M-mode, complete 2D, complete spectral Doppler, and color Doppler. Height: Height: 69in. Weight: Weight: 147.7lb. Body mass index: BMI: 21.9kg/m^2. Body surface area: BSA: 1.82m^2. Patient status: Inpatient. CARDIAC ANATOMY LEFT VENTRICLE: The cavity size was at the upper limits of normal. Wall thickness was normal. Systolic function was very difficult to assess. The estimated ejection fraction was roughly 35% to 40%. Wall motion was very difficult to assess. There is suggestion of moderate mid to distal inferior hypokinesis and moderate distal lateral hypokinesis. The anterior wall is poorly visualized. AORTIC VALVE: Trileaflet; normal thickness leaflets. Doppler: Transvalvular velocity was within the normal range. There was no stenosis. No regurgitation. Valve area: 2.36cm^2 (Vmax). Indexed valve area: 1.3cm^2/m^2 (Vmax). AORTA: Aortic root: The aortic root was normal in size. MITRAL VALVE: Structurally normal valve. Doppler: Transvalvular velocity was within the normal range. There was no evidence for stenosis. No regurgitation. LEFT ATRIUM: The atrium was normal in size. RIGHT VENTRICLE: The cavity size was normal. Wall thickness was normal. PULMONIC VALVE: Doppler: Transvalvular velocity was within the normal range. There was no evidence for stenosis. No regurgitation. TRICUSPID VALVE: Structurally normal valve. Doppler: Transvalvular velocity was within the normal range. Trace regurgitation. PULMONARY ARTERY: The main pulmonary artery was normal-sized. Systolic pressure was within the normal range. RIGHT ATRIUM: The atrium was normal in size. PERICARDIUM: There was no pericardial effusion. SYSTEMIC VEINS: Inferior vena cava: The vessel was normal in size. Patient weight: 147.7lb _Ejection fraction:_ 65-75% _Fractional shortening:_ 32% up to 5Kg 5-11.5Kg 11.6-22.9Kg 23-45Kg 45-57Kg Aortic Root 7-13 <17 13-22 17-27 17-27 LA diam 6-13 <23 24-38 33-47 37-40 RVID 10-17 7-15 7-15 7-18 8-17 LVIDd 12-22 <32 24-38 33-47 37-40 LVPW 2-4 3-6 5-7 6-8 7-8 IVS 2-4 3-6 5-7 6-8 7-8 BASIC MEASUREMENTS ADULT NORMAL Left ventricle LV internal dimension, ED, chordal *53.4 mm 43-52 level, PLAX LV internal dimension, ES, chordal *45.6 mm 23-38 level, PLAX Fractional shortening, chordal level, *15 % >29 PLAX LV posterior wall thickness, ED 11.7 mm IVS/LVPW ratio, ED 1 <1.3 Ventricular septum Septal thickness, ED 11.7 mm Aortic valve Leaflet separation 20 mm 15-26 Left atrium Anterior-posterior dimension 39 mm Anterior-posterior dimension index 2.14 cm/m^2 <2.2 BASIC MEASUREMENTS ADULT NORMAL Aortic valve Leaflet separation 20 mm 15-26 Aorta Root diameter, ED 34 mm 20-37 DOPPLER MEASUREMENTS ADULT NORMAL Main pulmonary artery Pressure, S *53 mm Hg =30 Aortic valve Peak velocity, S 102 cm/s Valve area, Vmax 2.36 cm^2 Valve area index, Vmax 1.3 cm^2/m^2 Tricuspid valve Regurgitant peak velocity 343 cm/s Peak RV-RA gradient, S 47 mm Hg Maximal regurgitant velocity 343 cm/s Systemic veins Estimated CVP 10 mm Hg Right ventricle RV pressure, S *57 mm Hg <30 Pulmonic valve Peak velocity, S 103 cm/s LEGEND: Mean values are shown as u=mean value. Asterisk (*) cameron values outside specified normal range. Prepared and signed by Del Balderas [id number]
--- NOTE | 2016-08-15 17:25 | PD.CONS ---
[facility] Service Critical Care Medicine Consult Requested By Dr. Dumont Reason for Consult Respiratory Failure Primary Care Physician Sergei Quiroga History of Present Illness Mr. Cooley is a 50 y/o CM with a PMHx of COPD who continues to smoke and is s/p R lung biopsy secondary to a recently found lung mass presenting with dyspnea. He has had increasing SOB over the last 2 days due to a COPD exacerbation. Prior to his biopsy today, he was being treated as an outpatient with a Medrol dose pack with Levaquin for a COPD exacerbation. He endorsed dyspnea on exertion today, but denied any fevers, chest pain, wheezing, cough, or LE edema/ tenderness. He has a history of LLE DVT diagnosed in 07/05, but has been off his anticoagulation for approximately 11 days (Previously on Xarelto). He had a port placed 2 days ago and lung biopsy today. He has been short of breath since 1 day prior to the procedure. After his biopsy, he was found to have a small apical pneumothorax on CXR, diaphoretic, and tachypneic with hypoxia of 81% on room air. He was placed on 4L and improved to 85%. He was then placed on a non- rebreather and transferred to the ICU. On arrival he was tachypneic with oxygen saturation in the upper 80s. CTA showed acute pulmonary embolisms of the BL lower lobes with a small R pneumothorax. Therefore a R sided chest tube was placed and heparin drip without bolus was initiated. The patient has been continued on Levaquin ABX, has been give steroids with multiple breathing treatments, and has been placed on BiPAP. Review of Systems ROS Limitations: Clinical Condition (Patient currently unable to participate in ROS ) Past Family Social History Allergies: Coded Allergies: No Known Allergies (Unverified , 07/09/16) Past Medical History COPD Coronary artery disease status post UT/stent Hyperlipidemia Bipolar disorder, Depression/Anxiety HTN DM Past Surgical History BL hernia repair Skin cancer removal Cardiac catheterization Reported Medications Symbicort, Colace, gabapentin, Prozac, trazodone, Spiriva, Abilify, Xanax, inhalers, Erwin, Medrol dose pack, and Levaquin Family History Lung cancer Social History Continues to smoke, history of 2 packs a day for 30 years. Prior history of drinking. Physical Exam Vital Signs Vital Signs Date Time Temp Pulse Resp B/P Pulse Ox O2 Delivery O2 Flow Rate FiO2 08/15/16 12:23 Partial Non-Rebreather 15.00 08/15/16 12:20 100 Partial Non-Rebreather 15.00 08/15/16 12:20 107 24 151/100 100 08/15/16 11:55 85 Nasal Cannula 15.00 100 08/15/16 11:40 117 24 155/111 91 08/15/16 11:40 100 Non-Rebreather 15.00 08/15/16 10:50 91 Nasal Cannula 2.00 08/15/16 10:50 107 21 137/97 92 08/15/16 10:50 92 Nasal Cannula 2.00 08/15/16 10:20 91 Nasal Cannula 2.00 08/15/16 10:20 108 22 133/92 91 08/15/16 10:20 91 Nasal Cannula 2.00 08/15/16 09:50 92 Nasal Cannula 1.00 08/15/16 09:35 103 21 127/88 92 08/15/16 09:35 92 Nasal Cannula 1.00 08/15/16 09:30 95 Nasal Cannula 2.00 08/15/16 09:20 95 Nasal Cannula 3.00 08/15/16 09:20 95 Nasal Cannula 2.00 08/15/16 09:20 106 20 136/96 95 08/15/16 09:05 99.2 114 22 144/91 96 08/15/16 09:05 96 Nasal Cannula 3.00 08/15/16 09:05 95 Nasal Cannula 3.00 08/15/16 07:29 95 Nasal Cannula 4.00 08/15/16 06:58 98.3 118 20 137/90 81 Physical Exam GENERAL: 50 y/o CM in respiratory distress on partial rebreather who cannot speak due to respiratory distress. SKIN: Diaphoretic HEAD: Atraumatic. Normocephalic. No temporal or scalp tenderness. EYES: Pupils equal round and reactive. No scleral icterus. No injection or drainage. ENT: Nose without bleeding, purulent drainage or septal hematoma. Throat without erythema, tonsillar hypertrophy or exudate. Uvula midline. Airway patent. NECK: Trachea midline. No JVD or lymphadenopathy. Supple, nontender, no meningeal signs. CARDIOVASCULAR: Tachycardic with regular rhythm. No MGR. RESPIRATORY: Decreased breath sounds with expiratory wheezes. Tachypneic with retractions. Increased work of breathing. GASTROINTESTINAL: Abdomen soft, non-tender, nondistended. No guarding. +BS. MUSCULOSKELETAL: Extremities without clubbing, cyanosis, or edema. No joint tenderness, effusion, or edema noted. No calf tenderness. Negative Homans sign bilaterally. NEUROLOGICAL: Drowsy, arousable, not following commands. moves all 4 extremities Laboratory Laboratory Tests Test 08/15/16 08/15/16 08/15/16 07:20 12:24 15:00 White Blood Count 15.4 Red Blood Count 4.29 Hemoglobin 13.1 Hematocrit 39.6 Mean Corpuscular Volume 92.3 Mean Corpuscular Hemoglobin 30.5 Mean Corpuscular Hemoglobin 33.1 Concent Red Cell Distribution Width 13.8 Platelet Count 117 Mean Platelet Volume 8.8 Prothrombin Time 13.5 Prothromb Time International 1.2 Ratio Activated Partial 33.8 Thromboplast Time Blood Gas Puncture Site LT RADIAL RT RADIAL Blood Gas Patient Temperature 98.6 98.6 Blood Gas HCO3 27 27 Blood Gas Base Excess 2.1 -0.6 Blood Gas Oxygen Saturation 96 97 Arterial Blood pH 7.38 7.20 Arterial Blood Partial 46 72 Pressure CO2 Arterial Blood Partial 239 323 Pressure O2 Arterial Blood Oxygen Content 18.0 19.3 Arterial Blood 2.9 1.5 Carboxyhemoglobin Arterial Blood Methemoglobin 1.1 1.2 Blood Gas Hemoglobin 13.0 13.7 Oxygen Delivery Device PRB PRB Blood Gas Liter Flow 15 15 Result Diagram: 08/15/16 0720 Imaging Last 72 hours Impressions Chest X-Ray 08/15/16 1300 Signed Impressions: Service Date/Time: July 12:55 - CONCLUSION: Stable tiny right apical pneumothorax. Neftaly Rodriguez MD Chest X-Ray 08/15/16 1200 Signed Impressions: Service Date/Time: July 11:51 - CONCLUSION: There is a new tiny apical right pneumothorax. Neftaly Rodriguez MD Chest X-Ray 08/15/16 1030 Signed Impressions: Service Date/Time: July 10:20 - CONCLUSION: No pneumothorax following recent right lung biopsy. Neftaly Rodriguez MD Lung Biopsy CT 08/15/16 0000 Signed Impressions: Service Date/Time: July 08:22 - CONCLUSION: Uncomplicated CT guided biopsy of the right upper lobe lung mass. Neftaly Rodriguez MD Chest X-Ray 08/15/16 0000 Signed Impressions: Service Date/Time: July 07:12 - CONCLUSION: 1. No pneumothorax is visualized. Right chest wall [id number] distal tip is at the cavoatrial junction. 2. Right upper lobe pulmonary mass is again visualized. Neftaly Rodriguez MD CT Angiography 08/15/16 0000 Signed Impressions: Service Date/Time: July 13:22 - CONCLUSION: 1. There is acute appearing PE in the right lower lobe segmental and left lower lobe subsegmental pulmonary arteries. These PE are new since the prior CT from 07/09/2016. 2. Small right pneumothorax. 3. Right upper lobe pulmonary mass remains present and measures 4.9 cm. There is associated mediastinal, right hilar, and right supraclavicular lymphadenopathy suspicious for lymphatic spread of disease. Neftaly Rodriguez MD Assessment and Plan Assessment and Plan Neuro: Bipolar Disorder with depression/anxiety Patient received 4mg morphine prior to chest tube procedure. Monitor neuro status with neuro checks per protocol CV: HTN CAD with UT s/p stent placement 2-D echo to evaluate for R heart strain. Difficult study due to tachycardia. EF 35-40%. Moderate mid to distal inferior hypokinesis and distal lateral hypokinesis. Trace tricuspid regurgitation. PA peak pressure 53 mmHg. Troponin, CKMB, BNP: Pending Hydralazine 10mg IV Q4H for BP >150/90, attempt to avoid long acting anti- hypertensives at this time Monitor HR and BP keep MAP>65mmHg Pulm: Severe dyspnea s/p R lung biopsy with pneumothorax BL PEs on CTA COPD Exacerbation R Lung mass s/p biopsy R sided chest tube to suction Continue with BiPAP support and maintain sats above 90%. Repeat ABG at 1999 for re-evaluation. Solumedrol 125mg given once, continue with 60mg Q6H Continue Levaquin 750mg QD for COPD exacerbation DuoNeb breathing treatments now, scheduled Q2H x3, then Q4H PRN for SOB/ Wheezing CXR 08/15: Interval placement of R chest tube with decrease in small pneumothorax with minute apical residual. Patchy opacity in R lung CTA 08/15: showed BL lower lobe acute PEs new from 07/09/16 exam. Small R pneumothorax. RUL pulmonary mass measuring 4.9cm with associated R hilar, mediastinal, and R supraclavicular LAD concerning for metastatic disease. Renal/: NS to 60 ml/hr as patient with decreased EF CMP: Pending Monitor renal function Is and Os. Simon order placed. ID: Elevated WBC s/p outpatient steroids with Levaquin for COPD exacerbation Continue with empiric abx (Levaquin) and monitor for signs of infections( fever and WBC) Legionella and Streptococcus urinary antigens pending Heme: Heparin drip per protocol Monitor CBC. Endocrine: Hx of DM per chart review, not on medications at home SSI per protocol GI: Patient to remain NPO Prophylaxis with Pepcid BID DVT prophylaxis: Heparin drip per protocol Addendum: Patient seen and examined earlier. Discussed findings, assessment and plan with Dr. Ling. Agree with above note. I had a long talk with patient's family and updated them regarding his clinical condition and plan of care and they voiced understanding and were agreeable. Patient may decompensate despite BiPAP and required endotracheal intubation which was explained to the family. Code Status FULL Discussed Condition With Shubham oNwak MD R1 Aug 15, 2016 16:42 Joseph Harrell MD Aug 15, 2016 18:34
[2016-08-15] MEDS ORDERED: GLUCAGON 1 MG/ML VIAL OTHER PRN (17:30)
[2016-08-15] MEDS ORDERED: DEXTROSE 50% IN WATER 50 ML VIAL(D50) IV PUSH PRN (17:30)
--- NOTE | 2016-08-15 17:47 | PD.PROCEDR ---
Procedure Note Procedure Procedure: Right sided chest tube placement Preoperative diagnosis: Right pneumothorax Postoperative diagnosis: Same Informed consent not obtained as this was an emergent procedure with patient in respiratory extremis and impending respiratory arrest. Anesthesia used: 1% lidocaine for local infiltration anesthesia. Procedure: After sterile prepping and draping using 1% lidocaine for local infiltration anesthesia, 1 cm skin incision was made in the mid axillary line in the fourth intercostal space. Blunt dissection was performed and using a curved Margarita clamp, pleural space was entered with gush of air noted. A 20 Pashto chest tube was passed into the pleural cavity using a Margarita clamp and was attached to and drainage tubing with underwater seal and -40 cm water pressure. Minimal air leak noted initially with subsequent only stopped. After suturing the chest tube in place and dressing was applied to the site. Postprocedure chest x-ray was ordered and reviewed with good placement of chest tube and right pleural cavity with residual small right apical pneumothorax noted. Almost immediately after placement of chest tube patient's respirations improved from the upper 30s to 20s and heart rate came down from the 130s to 115 range. Joseph Harrell MD Aug 15, 2016 17:47
[2016-08-15] MEDS: RESP: ALBUTEROL 2.5 MG/IPRATROPIUM 0.5 MG NEB (SCH) NEB ×4 (18:23→23:25)
[2016-08-15] MEDS: FAMOTIDINE 20 MG/2 ML VIAL IV PUSH SCH (18:25)
[2016-08-15] MEDS: LEVOFLOXACIN 750 MG PREMIX INJ 150 ML IV SCH (18:25)
[2016-08-15] MEDS: hydrALAZINE HCL 20 MG/ML VIAL IV PUSH PRN (18:26)
[2016-08-15] MEDS ORDERED: HEPARIN SODIUM - IV 10,000 UNITS/10 ML VIAL IV PRN ×2 (19:15)
[2016-08-15 19:18] LABS: ALKALINE PHOSPHATASE 71 U/L (45-117); ALT (GPT) 52 U/L (12-78); ANION GAP 10 MEQ/L (5-15); AST (GOT) 53 U/L (15-37); BICARBONATE 25.1 MEQ/L (21.0-32.0); BLOOD UREA NITROGEN 14 MG/DL (7-18); CHLORIDE 103 MEQ/L (98-107); CREATINE KINASE 283 U/L (39-308); GLOMERULAR FILTRATION RATE 75 ML/MIN (>89); POTASSIUM 5.3 MEQ/L (3.5-5.1); SODIUM (NA) 138 MEQ/L (136-145); TOTAL BILIRUBIN ADULT 0.3 MG/DL (0.2-1.0)
[2016-08-15 19:25] LABS: BLOOD GAS BASE EXCESS -2.5 mmol/L (-2-2); BLOOD GAS CARBOXYHEMOGLOBIN 1.3 % (0-4); BLOOD GAS HCO3 24 mmol/L (22-26); BLOOD GAS METHEMOGLOBIN 1.2 % (0-2); BLOOD GAS O2 HGB SATURATION 95 % (90-100); BLOOD GAS OXYGEN CONTENT 19.1 Vol % (12.0-20.0); BLOOD GAS PCO2 57 mmHg (38-42); BLOOD GAS PO2 125 mmHg (61-120); BLOOD GAS TOTAL HGB 14.2 G/DL (12.0-16.0); TEMP CORR TO 98.6
[2016-08-15 19:26] LABS: CRITICAL VALUE YES; FIO2 60 %
[2016-08-15 19:27] LABS: DRAW SITE RT RADIAL; NUMBER OF ARTERIAL PUNCTURES 1; STAT NO; ULNAR PULSE PRESENT
[2016-08-15 19:56] LABS: CKMB 28.6 NG/ML (0.5-3.6)
[2016-08-15] MEDS: methylPREDNISolone SOD SUCC 125 MG/2 ML VIAL IVP SCH (20:56)
[2016-08-15] MEDS: ARIPiprazole 15 MG TAB PO SCH (21:00)
[2016-08-15] MEDS: SODIUM CHLORIDE 0.9% FLUSH 10 ML FLUSH IV FLUSH SCH (21:00)
[2016-08-15] MEDS: INSULIN ASPART SUPPLEMENTAL SCALE SQ SCH (21:00)
[2016-08-15] MEDS: traZODone HCL 100 MG TAB PO SCH (21:00)
[2016-08-15] MEDS: BUDESONIDE-FORMOTEROL 160/4.5 MCG INHALER INH SCH (21:00)
[2016-08-15] MEDS ORDERED: ASPIRIN 300 MG SUPP RECTAL ONE (23:15)
[2016-08-15 23:26] LABS: APTT (PATIENT) 38.3 SEC (24.3-30.1)
[2016-08-16] VITALS (22 sets, daily range): BP systolic 95–158; BP diastolic 58–108; PULSE 90–140; RESP 17–32; TEMP 97.4–98.9; O2SAT 94–100
[2016-08-16] MEDS ORDERED: RESP: ALBUTEROL 2.5 MG/IPRATROPIUM 0.5 MG NEB (PRN) NEB
[2016-08-16] MEDS ORDERED: ENOXAPARIN SODIUM 80 MG/0.8 ML SYRINGE SQ SCH (01:00)
--- NOTE | 2016-08-16 01:14 | RADRPT ---
EXAM DATE/TIME: 08/16/2016 00:56 [facility] COMPARISON: No previous studies available for comparison. INDICATIONS : Right sided weakness. RADIATION DOSE: 48.32 CTDIvol (mGy) MEDICAL HISTORY : Non-responsive. SURGICAL HISTORY : Non-responsive. ENCOUNTER: Initial ACUITY: 1 day PAIN SCALE: 0/10 LOCATION: cranial TECHNIQUE: Multiple contiguous axial images were obtained of the head. Using automated exposure control and adj ustment of the mA and/or kV according to patient size, radiation dose was kept as low as reasonably a chievable to obtain optimal diagnostic quality images. FINDINGS: Large area of cerebral edema seen on the left, generally cytotoxic in appearance and in the left midd le cerebral artery distribution. No midline shift. No definite mass lesion. No hemorrhage. Intac the skull. No lytic or sclerotic lesions. Visualized portions of the paranasal sinuses and mastoid air cells are clear. CONCLUSION: Large left sided cerebral edema as above, appearance most typical of a subacute middle cerebral arter y distribution infarct. No bleed or definite mass. Neftaly Holden MD on August 16, 2016 at 1:10 Board Certified Radiologist. This report was verified electronically.
[2016-08-16 01:27] LABS: BLOOD GAS BASE EXCESS -0.4 mmol/L (-2-2); BLOOD GAS CARBOXYHEMOGLOBIN 1.2 % (0-4); BLOOD GAS HCO3 25 mmol/L (22-26); BLOOD GAS O2 HGB SATURATION 97 % (90-100); BLOOD GAS OXYGEN CONTENT 18.2 Vol % (12.0-20.0); BLOOD GAS PCO2 49 mmHg (38-42); BLOOD GAS PO2 154 mmHg (61-120); BLOOD GAS TOTAL HGB 13.2 G/DL (12.0-16.0); CRITICAL VALUE NO; DRAW SITE RT RADIAL; FIO2 50 %; NUMBER OF ARTERIAL PUNCTURES 1; TEMP CORR TO 98.6
[2016-08-16 01:28] LABS: STAT NO; ULNAR PULSE PRESENT
[2016-08-16 03:29] LABS: ALT (GPT) 45 U/L (12-78); ANION GAP 7 MEQ/L (5-15); AST (GOT) 38 U/L (15-37); BICARBONATE 28.7 MEQ/L (21.0-32.0); BLOOD UREA NITROGEN 17 MG/DL (7-18); CHLORIDE 105 MEQ/L (98-107); GLOMERULAR FILTRATION RATE 75 ML/MIN (>89); POTASSIUM 4.8 MEQ/L (3.5-5.1); SODIUM (NA) 141 MEQ/L (136-145)
[2016-08-16 03:33] LABS: ALKALINE PHOSPHATASE 56 U/L (45-117); CREATINE KINASE 204 U/L (39-308); TOTAL BILIRUBIN ADULT 0.2 MG/DL (0.2-1.0)
[2016-08-16] MEDS: methylPREDNISolone SOD SUCC 125 MG/2 ML VIAL IVP SCH ×4 (03:34→21:31)
[2016-08-16 03:35] LABS: AUTOMATED NEUTROPHIL # 10.7 TH/MM3 (1.8-7.7); BASOPHIL % 0.1 % (0.0-2.0); HEMATOCRIT 39.2 % (39.0-51.0); HEMO FLAGS DIFF FINAL; LYMPH % 4.2 % (9.0-44.0); LYMPHOCYTE # 0.5 TH/MM3 (1.0-4.8); MEAN CELL VOLUME 92.2 FL (80.0-100.0); MEAN CORPUSCULAR HGB CONC 32.5 % (32.0-36.0); MONO % 4.1 % (0.0-8.0); NEUT % 91.6 % (16.0-70.0); PLATELET COUNT 106 TH/MM3 (150-450); RED BLOOD COUNT 4.25 MIL/MM3 (4.50-5.90); RED CELL DISTRIBUTION WIDTH 13.9 % (11.6-17.2); WHITE BLOOD COUNT 11.7 TH/MM3 (4.0-11.0)
[2016-08-16] MEDS: RESP: ALBUTEROL 2.5 MG/IPRATROPIUM 0.5 MG NEB (SCH) NEB ×5 (03:48→22:58)
[2016-08-16] MEDS: CHLORHEXIDINE GLUCONATE 2 % 1 PACK (2 CLOTHS) TOP SCH (04:00)
[2016-08-16] MEDS ORDERED: IOHEXOL 350 MG/ML 10 ML VIAL (for RAD DIAG) IV ONE (04:22)
[2016-08-16] MEDS: hydrALAZINE HCL 20 MG/ML VIAL IV PUSH PRN (04:36)
[2016-08-16] MEDS: FAMOTIDINE 20 MG/2 ML VIAL IV PUSH SCH ×2 (04:52→16:21)
--- NOTE | 2016-08-16 04:52 | RADRPT ---
EXAM DATE/TIME: 08/16/2016 04:10 [facility] COMPARISON: No previous studies available for comparison. INDICATIONS : Right sided weakness. IV CONTRAST: 75 cc Omnipaque 350 (iohexol) IV ; Cumulative dose for multiple exams. RADIATION DOSE: 15.68 CTDIvol (mGy) ; Combined studies MEDICAL HISTORY : Non-responsive. SURGICAL HISTORY : Non-responsive. ENCOUNTER: Initial ACUITY: 1 day PAIN SCALE: Non-responsive LOCATION: cranial TECHNIQUE: Volumetric scanning was performed using a multi-row detector CT scanner. The data was post processed with a variety of visualization algorithms including full volume maximum intensity projection, multi -planar sliding thin slab reformation, curved planar reformation, and surface rendering techniques. Using automated exposure control and adjustment of the mA and/or kV according to patient size, radiat ion dose was kept as low as reasonably achievable to obtain optimal diagnostic quality images. FINDINGS: Left M1 segment middle cerebral artery is occluded approximately 1 cm distal to its origin. There is low attenuation compatible subacute infarct within its vascular territory. Other intracranial arterie s are patent. No aneurysm. CONCLUSION: Thrombosed left middle cerebral artery with associated large subacute cerebral infarct. Neftaly Holden MD on August 16, 2016 at 4:48 Board Certified Radiologist. This report was verified electronically.
--- NOTE | 2016-08-16 04:59 | RADRPT ---
EXAM DATE/TIME: 08/16/2016 04:10 [facility] COMPARISON: CT PULMONARY ANGIOGRAM, August 15, 2016, 13:22. INDICATIONS : Right sided weakness. IV CONTRAST: 75 cc Omnipaque 350 (iohexol) IV ; Cumulative dose for multiple exams. RADIATION DOSE: 15.38 CTDIvol (mGy) ; Combined studies MEDICAL HISTORY : Non-responsive. SURGICAL HISTORY : Non-responsive. ENCOUNTER: Initial ACUITY: 1 day PAIN SCALE: Non-responsive LOCATION: neck Elevated flow velocities and ICA/CCA ratios have been found to correlate with increased degrees of vessel stenosis, calculated as percentage of diameter relative to a normal segment of distal ICA/CCA. TECHNIQUE: Volumetric scanning was performed using a multirow detector CT scanner. The data was post processed with a variety of visualization algorithms including full-volume maximum intensity projection, multip lanar sliding thin-slab reformation, curved-planar reformation, and surface-rendering techniques. Us ing automated exposure control and adjustment of the mA and/or kV according to patient size, radiatio n dose was kept as low as reasonably achievable to obtain optimal diagnostic quality images. FINDINGS: AORTIC ARCH: There is a three-vessel origin of the great vessels from the aorta. No evidence of ostial narrowing. RIGHT CAROTID: The common carotid artery is intact. The carotid bulb has a normal configuration without ulceration o r narrowing. The internal carotid artery lumen is smooth without stenosis. The external carotid tianna ry is intact. LEFT CAROTID: The common carotid artery is intact. The carotid bulb has a normal configuration without ulceration or narrowing. The internal carotid artery lumen is smooth without stenosis. The external carotid ar mary jo is intact. VERTEBRALS: The vertebral arteries have a symmetric diameter. No stenotic lesions are seen. Mediastinal and hilar lymphadenopathy demonstrated in the visualized upper chest. A large right upper lobe mass is again seen. CONCLUSION: 1. Extracranial carotids are normal. Also normal vertebral arteries. 2. Known malignant right upper lobe mass. Mediastinal and hilar lymphadenopathy seen in the upper [address]. Neftaly Holden MD on August 16, 2016 at 4:55 Board Certified Radiologist. This report was verified electronically.
[2016-08-16] MEDS: MANNITOL 12.5 GM/50 ML VIAL IV SCH ×4 (05:30→21:31)
[2016-08-16] MEDS: INSULIN ASPART SUPPLEMENTAL SCALE SQ SCH ×4 (06:48→21:30)
[2016-08-16] MEDS ORDERED: ROCURONIUM INJ 50 MG/5 ML VIAL ONE ×2 (07:54→07:55)
[2016-08-16] MEDS ORDERED: ETOMIDATE 20 MG/10 ML VIAL ONE (07:54)
[2016-08-16] MEDS ORDERED: PROPOFOL 1000 MG/100 ML INJ 100 ML ONE (08:12)
[2016-08-16] MEDS: RESP: ALBUTEROL 2.5 MG/IPRATROPIUM 0.5 MG NEB (SCH) INH ×4 (08:20→19:36)
[2016-08-16] MEDS: TIOTROPIUM BROMIDE 18 MCG INH INH SCH (08:39)
[2016-08-16] MEDS: IMPLANTED VASCULAR ACCESS DEVICE/PORT - SODIUM CHLORIDE FLUSH IV FLUSH SCH (08:39)
[2016-08-16] MEDS: BUDESONIDE-FORMOTEROL 160/4.5 MCG INHALER INH SCH ×2 (08:39→21:00)
[2016-08-16] MEDS: SODIUM CHLORIDE 0.9% FLUSH 10 ML FLUSH IV FLUSH SCH ×2 (08:40→21:29)
[2016-08-16] MEDS: GABAPENTIN 100 MG CAP PO SCH ×3 (08:55→17:10)
[2016-08-16] MEDS ORDERED: FLUoxetine HCL 20 MG CAP PO SCH (09:00)
[2016-08-16] MEDS ORDERED: FOSPHENYTOIN INJ 1,000 MGPE in SODIUM CHLORIDE 0.9% INJ 50 ML IV STA (09:00)
[2016-08-16 09:14] LABS: BLOOD GAS BASE EXCESS -0.3 mmol/L (-2-2); BLOOD GAS CARBOXYHEMOGLOBIN 1.2 % (0-4); BLOOD GAS HCO3 26 mmol/L (22-26); BLOOD GAS METHEMOGLOBIN 1.2 % (0-2); BLOOD GAS O2 HGB SATURATION 95 % (90-100); BLOOD GAS OXYGEN CONTENT 18.1 Vol % (12.0-20.0); BLOOD GAS PCO2 56 mmHg (38-42); BLOOD GAS PO2 105 mmHg (61-120); BLOOD GAS TOTAL HGB 13.5 G/DL (12.0-16.0); TEMP CORR TO 98.6
[2016-08-16 09:15] LABS: CRITICAL VALUE YES; OXYGEN DEVICE VENTILATOR
[2016-08-16 09:16] LABS: DRAW SITE RT RADIAL; FIO2 50 %; NUMBER OF ARTERIAL PUNCTURES 1; STAT NO; ULNAR PULSE PRESENT; VENT SETTINGS A/C 20/600/5 PEEP
--- NOTE | 2016-08-16 09:29 | RADRPT ---
EXAM DATE/TIME: 08/16/2016 08:15 [facility] COMPARISON: CHEST SINGLE AP, August 15, 2016, 14:33. INDICATIONS : ET Tube placement. Followup small right pneumothorax. MEDICAL HISTORY : Cardiovascular disease. Carcinoma, lung. Deep venous thrombosis SURGICAL HISTORY : Infusaport. ENCOUNTER: Subsequent ACUITY: 2 days PAIN SCORE: Non-responsive. LOCATION: Bilateral chest FINDINGS: A single AP semierect view of the chest was obtained and demonstrates interval intubation with endotr acheal tube tip approximately 4 cm above the bisi. There has been placement of a nasogastric tube w ith the tip projected over the distal esophagus. A right-sided chest tube remains in place. There is a small right apical pneumothorax which is mildly increased in size since the prior study. This now m easures up to approximately 1.3 cm in diameter. Hazy opacity is again noted in the right lung greates t at the right lung base and appears mildly increased. There is subcutaneous emphysema over the right lateral chest wall. The left lung remains clear. The heart size is within normal limits. CONCLUSION: 1. Interval intubation. 2. Placement of nasogastric tube with the tip in the distal esophagus. This could be advanced at leas t 7 cm. 3. Mild interval increase in size the small right apical pneumothorax. 4. Increasing opacity in the right lung base most consistent with infiltrate. Barrett Holman MD on August 16, 2016 at 9:23 Board Certified Radiologist. This report was verified electronically.
[2016-08-16 09:41] LABS: CREATINE KINASE 270 U/L (39-308)
[2016-08-16] MEDS ORDERED: LORazepam 2 MG/ML VIAL ONE ×2 (09:51→14:42)
[2016-08-16] MEDS ORDERED: ASPIRIN 300 MG SUPP RECTAL SCH (10:00)
--- NOTE | 2016-08-16 10:07 | MB ---
cc: PETER HARMON DATE OF CONSULTATION 08/16/2016 REASON FOR CONSULTATION Stroke HISTORY OF PRESENT ILLNESS Mr. Cooley is a 50-year-old man who has a history of DVT was on Xarelto previously. He came off about Xarelto 11 days ago in preparation for biopsy of a right apical lung mass which is thought to be possible malignancy as well as port placement. He developed shortness of breath acutely, was found to have a PE by CT angiography and was initially started on IV heparin because of that. He developed right-sided weakness sometime last night. He was taken down for a CT scan of the brain which revealed a very large area of edema in the left MCA territory consistent with a large left sided stroke. He had no hemorrhage. He also had a CT angiogram done yesterday which showed thrombosis of the left MCA associated with the stroke. There was no midline shift or mass effect on the CT scan. In addition, he had a CT angiogram of the neck which showed normal extracranial carotid arteries, normal vertebral arteries, right upper lobe mass is identified. The patient's case was reviewed with neuroradiology. It was felt that he was not a ideal candidate for interventional therapy for the left MCA occlusion given the significant edema seen on the CT scan which would indicate a completed large infarction. Therefore, it was felt that the risk/benefit ratio would not be in favor of proceeding with the procedure. The patient's anticoagulation has been on hold because of the large stroke. He is on aspirin. He is going to be having an IVC filter placed. PAST MEDICAL HISTORY 1. He has a history of DVT. 2. History of COPD. 3. DVT's in the left leg treated in the past with Xarelto. 4. History of a lung mass which is currently being evaluated by Biopsy. 5. He has a history of coronary artery disease with stent Placement. 6. Hyperlipidemia 7. Bipolar disorder ALLERGIES None known. SOCIAL HISTORY He does smoke. He used to drink alcohol, but apparently stopped that. CURRENT MEDICATIONS He is on: 1. Dilantin. He has loaded with 1000 mg of fosphenytoin and now on Dilantin mg IV q8h because of some shaking activity of the right leg which was not clearly seizures, possibly seizures however. 2. He is on Spiriva. 3. His anticoagulation is on hold. 4. He has received mannitol 12.5 grams q6h. 5. Albuterol nebulizer 6. Aspirin 200 mg suppository daily 7. Abilify 8. Symbicort 9. Desyrel 10. Solu-Medrol 60 mg IV q6 hours 11. Levofloxacin q.24 h 12. Apresoline 10 mg as needed 13. Pepcid 20 mg IV q.12 h 14. Gabapentin 100 mg t.i.d. 15. Xanax p.r.n. 16. Zofran p.r.n. 17. Tylenol as needed NEUROLOGIC EXAMINATION VITAL SIGNS: Blood pressure is 135/91, pulse 106, respiratory rate is 17, temperature 97 degrees. Higher cortical functions, he is sedated, nonresponsive, does not follow commands. HEAD, EYES, EARS, NOSE, AND THROAT: The pupils are 2 mm symmetric and reactive. Extraocular movements are limited. He does have a right facial droop. NEUROLOGIC: On motor exam, he has a right hemiplegia. He does not move the right arm or right leg, but he does have tremors and has increased tone. Reflexes are symmetric. CT of the brain is as noted above. MRI currently pending. CT angiogram of the brain and neck as noted above. LABORATORY DATA White count 11,700, hemoglobin 12.7, hematocrit 39%, platelet count 106,000, PT 13.5, INR 1.2, APTT 33.8. Sodium is 141, potassium 4.8, chloride 150, CO2 28, the BUN is 17, creatinine 1.05, GFR 75, glucose 147, AST 38, ALT 45, CPK 204, troponin 5.02. IMPRESSION The patient has a very large left middle cerebral artery distribution stroke with thrombus in the left MCA. I agree that he was not a candidate for intervention because of the completed nature of the stroke involving the large area. I agree also with holding anticoagulation due to the inherent hemorrhagic risk of the large stroke. Also recommend neurosurgical evaluation for the possibility of increasing edema. We will follow up on the MRI as well. Would like to repeat a head CT tomorrow to be sure there is no increasing mass effect as well. Continue mannitol as well. MD TRACY Richards/[place] /9:36 AM 9:53 AM
--- NOTE | 2016-08-16 10:52 | PD.CONS ---
Consult Service Palliative Care Consult Requested By MD Julio Cesar Primary Care Physician Sergei Quiroga Reason for Consultation a. To assist with evaluation and management of symptoms including: Dyspnea, b. To assist medical decision maker(s) with: better understanding of current medical conditions; weighing benefits/burdens of medical treatment options; making medical treatment decisions. HPI History of Present Illness This is a 50-year-old gentleman with a [id number] smoking history who presented to his PCP approx 3-[address] Rawls w c/o shortness of breath. a CXR was done and was found to have a lung mass. He went to [facility] for evaluation. PET CT scan was performed at that facility. That revealed a right upper lobe mass consistent with bronchogenic carcinoma with an SUV of 11.6 , hypermetabolic right Supraclavicular, mediastinal and right hilar lymph nodes. There was also subcarinal disease and lesion in the AP window with no evidence of other metastasis. He returned to the area to be under the care of Dr Murry and recommendation was for chemotherapy as well as Radiotherapy. On 07/09/16 he presented to the ED with c/o ankle pain and swelling. . An ultrasound was done at [facility] showed a DVT. He was sent to the emergency room for management and was started on Xarelto at that time. Per family he took it for 3 weeks, but was having side effects from it and so was started on Elequis. At the time of evaluation for radiation oncology, Patient reported he had lost approximately 20 pounds in weight over the last year. He had a cough with progressive shortness of breath as well as a raspy hoarse voice over the last 2 years. Stated sputum production but no hemoptysis. PT discontinued the Elequis in preparation for Port placement on 08/13/16 and was had a CT guided biopsy on 08/15/16 at 8:30am. Pathology is pending. Post proceedure he developed shortness of breath the ROPU. Chest x-ray identified a small right apical pneumothorax. He was also hypoxic 81% on room air. On 4 L he only improved to 85% and has been placed on nonrebreather. A right chest tube was placed to manage the pneumothorax, heparin drip was initiated and he started on Levaquin as well as steroids. However he continued with dyspnea. Lung CTA at 1pm identified a pulmonary embolism in the right lower lobe segmental and left lower lobe segmental pulmonary arteries. this was not present on films compared to CT from 07/09/16. He is placed on BiPAP for ventilatory support. Echocardiogram identified LVEF of 35-40% with moderate mid to distal inferior hypokinesis and distal lateral hypokinesis.. Patient has history of MN with stent in 2002. Around 11 PM on 08/15/16, the attending physician was notified of a Troponin level of 8.96 and BNP was 3333. EKG identified a non-STEM. However, when the RN went to administer rectal ASA he was not moving his right side. On assessment, his pupils were 5 mm bilaterally and reactive to 3mm. R side flaccid with hyperreflexia patellar reflex BLE. Following commands on left , making eye contact. Stat CT that demonstrated a very large left middle cerebral artery distribution stroke with thrombus in the left MCA. It was determined he was not a candidate for intervention because of the complete nature of the stroke involving a large area. It was also recommended to hold anticoagulation due to the inherent hemorrhagic risk of a large stroke. He was not felt to be a candidate for clot retrieval due to severe edema, risk of hemorrhagic conversion. Patient was intubated for airway protection. An IVC filter was placed on 08/16/16 I was present at the time neurosurgery spoke with the family explaining the extensive nature of the stoke on the left side of the brain. He did not feel he was a good candidate for surgical. He explained that as the stroke evolves there will be increased swelling. He indicated that while the patient has a 50/ 50 chance of survival, he would not have quality of life, my need a trach for vent support, PEG for feeding support and would have no use of his Right side. At the time of my visit, the patient is non responsive, sedated w diprivan on a vent. with stable vital signs. Patients was clear to state that she knows he would not want to live with that. She also states that she knows he is dying. But she / they are not able to consider code status at this time. That said the family dynamics are complicated and strained and the is emotionally unstable per her son. There is only one biological son, Neftaly Review of Systems ROS Limitations: Clinical Condition, Unresponsive Other ROS: As patient is sedated on a vent post stroke information in attained from family or review of clinical chart. Past Family Social History Coded Allergies: No Known Allergies (Unverified , 07/09/16) Past Medical History DVT of his left lower limb July 09, 2016 started on anticoagulation coronary artery disease status post MN/stent, 2002 hyperlipidemia bipolar disorder - anxiety/depression Generalized osteoarthritis, melanoma resected from his nose with full-thickness skin grafting to his forehead. Osteopenia Past Surgical History Bilateral inguinal hernia repair Heart catheter skin cancer removal Reported Medications Aripiprazole 15 mg daily Budesonide / Formeterol INH 2 puffs daily Fluoxetine 20 mg daily, Gabapentin 100 mg 3 times a day Tiotropium INH 18 g daily Trazodone 100 mg twice daily, albuterol inhaler when necessary. Xanax 0.5 when necessary. Elequis Current Medications Medications (Trade) Dose Ordered Sig/Beto Route Start Time Stop Time Status Last Admin (NS 1000 ml Inj) 1,000 ml @ 0 mls/hr Q0M IV 08/15/16 07:15 (NS Flush) 2 ml UNSCH PRN IV FLUSH 08/15/16 07:15 (NS Flush) 2 ml UNSCH PRN IV FLUSH 08/15/16 07:15 (NS Flush) 5 ml Q21D IV FLUSH 08/15/16 07:15 08/16/16 08:39 (Heparin Central Flush) 500 units Q21D IV FLUSH 08/15/16 07:15 (NS Flush) 5 ml UNSCH PRN IV FLUSH 08/15/16 07:15 (Heparin Central Flush) 250 units UNSCH PRN IV FLUSH 08/15/16 07:15 (NS Flush) 2 ml BID IV FLUSH 08/15/16 21:00 08/16/16 08:40 (NS Flush) 2 ml UNSCH PRN IV FLUSH 08/15/16 12:15 (Xanax) 0.25 mg Q8H PRN PO 08/15/16 12:15 (Abilify) 15 mg HS PO 08/15/16 21:00 (Symbicort 160-4.5 Inh) 2 puff Q12HR INH 08/15/16 21:00 (Neurontin) 100 mg TID PO 08/15/16 13:00 08/16/16 08:55 (Drift 10-325 Mg) 1 tab Q4H PRN PO 08/15/16 12:15 (Spiriva Inh) 18 mcg DAILY INH 08/16/16 09:00 (Desyrel) 100 mg HS PO 08/15/16 21:00 (PROzac) 60 mg DAILY PO 08/16/16 09:00 Hold (Tylenol) 650 mg Q4H PRN PO 08/15/16 12:15 (Zofran Inj) 4 mg Q6H PRN IV 08/15/16 12:15 (Colace) 100 mg BID PRN PO 08/15/16 12:15 (Mag-Al Plus Susp Liq) 30 ml Q6H PRN PO 08/15/16 12:15 (Tums Chew) 1,000 mg TID PRN CHEW 08/15/16 12:15 (Vasotec Inj) 1.25 mg Q6H PRN IV 08/15/16 12:15 (Apresoline Inj) 10 mg Q6H PRN IV 08/15/16 12:15 (Catapres) 0.1 mg Q6H PRN PO 08/15/16 12:15 Miscellaneous Information 1 Q361D XX 08/15/16 13:15 08/15/16 19:00 (Chlorhexidine 2% Cloth) 3 pack Taper DAILY@04 TOP 08/16/16 04:00 08/12/17 03:59 08/16/16 04:00 (Chlorhexidine 2% Cloth) 3 pack UNSCH PRN TOP 08/15/16 13:15 (Heparin Inj) 5,000 units UNSCH PRN IV 08/15/16 19:15 Hold Heparin Sodium (Porcine) 2500 units 2,500 units UNSCH PRN IV 08/15/16 19:15 Hold (Heparin-D5W Inj) 250 ml @ 0 mls/hr TITRATE IV 08/15/16 13:15 Hold 08/15/16 15:22 Methylprednisolone Sodium Succinate 60 mg 60 mg Q6H IVP 08/15/16 21:00 08/16/16 08:55 (Levaquin 750 Mg Premix Inj) 150 ml @ 100 mls/hr Q24H IV 08/15/16 16:00 08/15/16 18:25 (Apresoline Inj) 10 mg Q2HR PRN IV PUSH 08/15/16 16:00 08/16/16 04:36 (Pepcid Inj) 20 mg Q12H IV PUSH 08/15/16 16:00 08/16/16 04:52 (D50w (Vial) Inj) 25 ml UNSCH PRN IV PUSH 08/15/16 17:30 (Glucagon Inj) 1 mg UNSCH PRN OTHER 08/15/16 17:30 (Mannitol Inj) 12.5 gm Q6H IV 08/16/16 05:30 08/16/16 05:30 (Dilantin Inj) 100 mg Q8HR IV 08/16/16 14:00 (Aspirin Supp) 300 mg DAILY RECTAL 08/16/16 10:00 Family History Father from lung cancer at age 64. Mother is alive with Parkinson's disease. He's had a grandmother with esophageal cancer. Substance Use Tobacco: 2 packs per day times 40 years Alcohol: Denies Prescription med abuse: Denies Illicits: Denies Psychosocial History Gentleman is , lives in [place]. She is self-employed. He has worked as a industrial spraypainter of cars, spray painting pain for many years. He is able 40 year smoker. Spiritual/Cultural Factors Nondenominational Living Will: Never completed Health Care Surrogate: Never completed Durable Power of Construction Estimator: Never completed Health Care Surrogate(s): Spouse, Erika Chávez, Physical Exam Vital Signs Date Time Temp Pulse Resp B/P Pulse Ox O2 Delivery O2 Flow Rate FiO2 08/16/16 09:15 97 50 08/16/16 08:50 50 08/16/16 08:17 100 50 08/16/16 06:00 133 08/16/16 04:30 94 60 08/16/16 04:00 100 15.00 100 08/16/16 04:00 97.4 106 17 135/91 100 08/16/16 04:00 106 08/16/16 01:07 100 50 08/16/16 00:40 100 15.00 100 08/16/16 00:00 140 08/16/16 00:00 97.8 140 32 158/108 95 08/15/16 22:05 100 50 08/15/16 22:00 101 08/15/16 20:00 101 08/15/16 19:08 95 60 08/15/16 19:00 100 Bi-Pap 60 08/15/16 19:00 97.4 101 18 121/83 100 08/15/16 18:00 101 08/15/16 17:00 96 18 126/93 08/15/16 16:15 102 20 129/81 91 08/15/16 16:00 107 08/15/16 16:00 107 24 140/88 93 08/15/16 15:15 118 45 165/95 98 08/15/16 15:15 95 50 08/15/16 15:00 97.6 114 24 130/81 85 08/15/16 12:23 Partial Non-Rebreather 15.00 08/15/16 12:23 85 Partial Rebreather 15.00 08/15/16 12:20 100 Partial Non-Rebreather 15.00 08/15/16 12:20 107 24 151/100 100 08/15/16 11:55 85 Nasal Cannula 15.00 100 08/15/16 11:40 117 24 155/111 91 08/15/16 11:40 100 Non-Rebreather 15.00 08/15/16 10:50 91 Nasal Cannula 2.00 08/15/16 10:50 107 21 137/97 92 08/15/16 10:50 92 Nasal Cannula 2.00 08/15/16 08/16/16 19:00 07:00 Intake Total 966 ml Output Total 815 ml Balance 151 ml Intake IV Total 966 ml Output Urine Total 775 ml Chest Tube Drainage Total 40 ml Exam CONSTITUTIONAL/GENERAL: This is an adequately nourished patient, sedated on the ventilator TUBES/LINES/DRAINS: ET tube, Simon catheter, chest tube to right mid chest wall , SKIN: No jaundice, rashes, or lesions. Ecchymoses on upper extremities. No wounds seen anteriorly. Skin temperature appropriate. Not diaphoretic. HEAD: Atraumatic. Normocephalic. EYES: Pupils equal and round and reactive. . No scleral icterus. No injection or drainage. ENT: Nose without bleeding or purulent drainage. Throat without visible erythema , exudates, masses, or lesions. NECK: Trachea midline. Supple, nontender. No palpable thyroid enlargement or nodularity. CARDIOVASCULAR: Regular rate and rhythm without murmurs, gallops, or rubs. No JVD. Peripheral pulses symmetric. RESPIRATORY/CHEST: Chest tube, 2 right mid chest wall Symmetric, unlabored respirations. Clear to auscultation. Breath sounds equal bilaterally. No wheezes , rales, or rhonchi. GASTROINTESTINAL: Abdomen soft, non-tender, nondistended. No hepato-splenomegaly , or palpable masses. No guarding. Bowel sounds present. GENITOURINARY: Without palpable bladder distension. Simon catheter in place. MUSCULOSKELETAL: Extremities without clubbing, cyanosis, or edema. No joint tenderness or effusion noted. No calf tenderness. No mottling or clubbing. LYMPHATICS: No palpable cervical or supraclavicular adenopathy. NEUROLOGICAL: Sedated on a ventilator. Did not follow commands at time of my visit . Moves all extremities. PSYCHIATRIC: Unable to assess due to clinical status Diagnostic Tests Laboratory Laboratory Tests Test 08/15/16 08/15/16 08/15/16 08/15/16 07:20 12:24 15:00 15:15 White Blood Count 15.4 TH/MM3 (4.0-11.0) Red Blood Count 4.29 MIL/MM3 (4.50-5.90) Hemoglobin 13.1 GM/DL (13.0-17.0) Hematocrit 39.6 % (39.0-51.0) Mean Corpuscular Volume 92.3 FL (80.0-100.0) Mean Corpuscular Hemoglobin 30.5 PG (27.0-34.0) Mean Corpuscular Hemoglobin 33.1 % Concent (32.0-36.0) Red Cell Distribution Width 13.8 % (11.6-17.2) Platelet Count 117 TH/MM3 (150-450) Mean Platelet Volume 8.8 FL (7.0-11.0) Prothrombin Time 13.5 SEC (9.8-11.6) Prothromb Time International 1.2 RATIO Ratio Activated Partial 33.8 SEC 28.7 SEC Thromboplast Time (24.3-30.1) (24.3-30.1) Blood Gas Puncture Site LT RADIAL RT RADIAL Blood Gas Patient Temperature 98.6 98.6 Blood Gas HCO3 27 mmol/L 27 mmol/L (22-26) (22-26) Blood Gas Base Excess 2.1 mmol/L -0.6 mmol/L (-2-2) (-2-2) Blood Gas Oxygen Saturation 96 % (90-100) 97 % (90-100) Arterial Blood pH 7.38 7.20 (7.380-7.420) (7.380-7.420) Arterial Blood Partial 46 mmHg (38-42) 72 mmHg (38-42) Pressure CO2 Arterial Blood Partial 239 mmHg 323 mmHg Pressure O2 (61-120) (61-120) Arterial Blood Oxygen Content 18.0 Vol % 19.3 Vol % (12.0-20.0) (12.0-20.0) Arterial Blood 2.9 % (0-4) 1.5 % (0-4) Carboxyhemoglobin Arterial Blood Methemoglobin 1.1 % (0-2) 1.2 % (0-2) Blood Gas Hemoglobin 13.0 G/DL 13.7 G/DL (12.0-16.0) (12.0-16.0) Oxygen Delivery Device PRB PRB Blood Gas Liter Flow 15 L/M 15 L/M Test 08/15/16 08/15/16 08/15/16 08/15/16 18:46 19:15 22:00 22:20 Sodium Level 138 MEQ/L (136-145) Potassium Level 5.3 MEQ/L (3.5-5.1) Chloride Level 103 MEQ/L (98-107) Carbon Dioxide Level 25.1 MEQ/L (21.0-32.0) Anion Gap 10 MEQ/L (5-15) Blood Urea Nitrogen 14 MG/DL (7-18) Creatinine 1.05 MG/DL (0.60-1.30) Estimat Glomerular Filtration 75 ML/MIN (>89) Rate Random Glucose 143 MG/DL (74-106) Calcium Level 8.8 MG/DL (8.5-10.1) Total Bilirubin 0.3 MG/DL (0.2-1.0) Aspartate Amino Transf 53 U/L (15-37) (AST/SGOT) Alanine Aminotransferase 52 U/L (12-78) (ALT/SGPT) Alkaline Phosphatase 71 U/L (45-117) Total Creatine Kinase 283 U/L (39-308) Creatine Kinase MB 28.6 NG/ML (0.5-3.6) Troponin I 8.96 NG/ML (0.02-0.05) B-Type Natriuretic Peptide 3333 PG/ML (0-100) Total Protein 7.2 GM/DL (6.4-8.2) Albumin 3.1 GM/DL (3.4-5.0) Blood Gas Puncture Site RT RADIAL Blood Gas Patient Temperature 98.6 Blood Gas HCO3 24 mmol/L (22-26) Blood Gas Base Excess -2.5 mmol/L (-2-2) Blood Gas Oxygen Saturation 95 % (90-100) Arterial Blood pH 7.25 (7.380-7.420) Arterial Blood Partial 57 mmHg (38-42) Pressure CO2 Arterial Blood Partial 125 mmHg Pressure O2 (61-120) Arterial Blood Oxygen Content 19.1 Vol % (12.0-20.0) Arterial Blood 1.3 % (0-4) Carboxyhemoglobin Arterial Blood Methemoglobin 1.2 % (0-2) Blood Gas Hemoglobin 14.2 G/DL (12.0-16.0) Oxygen Delivery Device BIPAP 15/5/60% Blood Gas Inspired Oxygen 60 % Nasal Screen MRSA (PCR) MRSA NOT DETECTED (NOT DETECT) Activated Partial 38.3 SEC Thromboplast Time (24.3-30.1) Test 08/16/16 08/16/16 08/16/16 08/16/16 01:16 02:03 02:50 08:41 Blood Gas Puncture Site RT RADIAL Blood Gas Patient Temperature 98.6 Blood Gas HCO3 25 mmol/L (22-26) Blood Gas Base Excess -0.4 mmol/L (-2-2) Blood Gas Oxygen Saturation 97 % (90-100) Arterial Blood pH 7.32 (7.380-7.420) Arterial Blood Partial 49 mmHg (38-42) Pressure CO2 Arterial Blood Partial 154 mmHg Pressure O2 (61-120) Arterial Blood Oxygen Content 18.2 Vol % (12.0-20.0) Arterial Blood 1.2 % (0-4) Carboxyhemoglobin Arterial Blood Methemoglobin 1.0 % (0-2) Blood Gas Hemoglobin 13.2 G/DL (12.0-16.0) Oxygen Delivery Device BIPAP 15/5/50% Blood Gas Inspired Oxygen 50 % Sodium Level 141 MEQ/L (136-145) Potassium Level 4.8 MEQ/L (3.5-5.1) Chloride Level 105 MEQ/L (98-107) Carbon Dioxide Level 28.7 MEQ/L (21.0-32.0) Anion Gap 7 MEQ/L (5-15) Blood Urea Nitrogen 17 MG/DL (7-18) Creatinine 1.05 MG/DL (0.60-1.30) Estimat Glomerular Filtration 75 ML/MIN (>89) Rate Random Glucose 147 MG/DL (74-106) Calcium Level 8.5 MG/DL (8.5-10.1) Total Bilirubin 0.2 MG/DL (0.2-1.0) Aspartate Amino Transf 38 U/L (15-37) (AST/SGOT) Alanine Aminotransferase 45 U/L (12-78) (ALT/SGPT) Alkaline Phosphatase 56 U/L (45-117) Total Creatine Kinase 204 U/L 270 U/L (39-308) (39-308) Creatine Kinase MB 19.0 NG/ML 17.0 NG/ML (0.5-3.6) (0.5-3.6) Troponin I 5.02 NG/ML 4.11 NG/ML (0.02-0.05) (0.02-0.05) Total Protein 6.4 GM/DL (6.4-8.2) Albumin 2.8 GM/DL (3.4-5.0) White Blood Count 11.7 TH/MM3 (4.0-11.0) Red Blood Count 4.25 MIL/MM3 (4.50-5.90) Hemoglobin 12.7 GM/DL (13.0-17.0) Hematocrit 39.2 % (39.0-51.0) Mean Corpuscular Volume 92.2 FL (80.0-100.0) Mean Corpuscular Hemoglobin 30.0 PG (27.0-34.0) Mean Corpuscular Hemoglobin 32.5 % Concent (32.0-36.0) Red Cell Distribution Width 13.9 % (11.6-17.2) Platelet Count 106 TH/MM3 (150-450) Mean Platelet Volume 8.6 FL (7.0-11.0) Neutrophils (%) (Auto) 91.6 % (16.0-70.0) Lymphocytes (%) (Auto) 4.2 % (9.0-44.0) Monocytes (%) (Auto) 4.1 % (0.0-8.0) Eosinophils (%) (Auto) 0.0 % (0.0-4.0) Basophils (%) (Auto) 0.1 % (0.0-2.0) Neutrophils # (Auto) 10.7 TH/MM3 (1.8-7.7) Lymphocytes # (Auto) 0.5 TH/MM3 (1.0-4.8) Monocytes # (Auto) 0.5 TH/MM3 (0-0.9) Eosinophils # (Auto) 0.0 TH/MM3 (0-0.4) Basophils # (Auto) 0.0 TH/MM3 (0-0.2) CBC Comment DIFF FINAL Differential Comment Test 08/16/16 08:57 Blood Gas Puncture Site RT RADIAL Blood Gas Patient Temperature 98.6 Blood Gas HCO3 26 mmol/L (22-26) Blood Gas Base Excess -0.3 mmol/L (-2-2) Blood Gas Oxygen Saturation 95 % (90-100) Arterial Blood pH 7.28 (7.380-7.420) Arterial Blood Partial 56 mmHg (38-42) Pressure CO2 Arterial Blood Partial 105 mmHg Pressure O2 (61-120) Arterial Blood Oxygen Content 18.1 Vol % (12.0-20.0) Arterial Blood 1.2 % (0-4) Carboxyhemoglobin Arterial Blood Methemoglobin 1.2 % (0-2) Blood Gas Hemoglobin 13.5 G/DL (12.0-16.0) Oxygen Delivery Device VENTILATOR Blood Gas Ventilator Setting A/C 20/600/5 PEEP Blood Gas Inspired Oxygen 50 % Result Diagram: 08/16/16 0250 08/16/16202 Microbiology Microbiology Date/Time Procedure Status Source Growth 08/15/16 22:00 Legionella Antigen - Final Complete Urine Random Urine PRESUMPTIVE NEGATIVE FOR LEGIONELLA P... 08/15/16 22:00 Streptococcus pneumoniae Antigen (M - Final Complete Urine Random Urine PRESUMPTIVE NEGATIVE FOR STREPTOCOCCU... Imaging Last 72 hours Impressions Head CTA 08/16/16 0207 Signed Impressions: Service Date/Time: Tuesday, August 16, 2016 04:10 - CONCLUSION: Thrombosed left middle cerebral artery with associated large subacute cerebral infarct. Neftaly Holden MD Neck CTA 08/16/16 0000 Signed Impressions: Service Date/Time: Tuesday, August 16, 2016 04:10 - CONCLUSION: 1. Extracranial carotids are normal. Also normal vertebral arteries. 2. Known malignant right upper lobe mass. Mediastinal and hilar lymphadenopathy seen in the upper chest. Neftaly Holden MD Head CT 08/16/16 0000 Signed Impressions: Service Date/Time: Tuesday, August 16, 2016 00:56 - CONCLUSION: Large left sided cerebral edema as above, appearance most typical of a subacute middle cerebral artery distribution infarct. No bleed or definite mass. Neftaly Holden MD Chest X-Ray 08/16/16 0000 Signed Impressions: Service Date/Time: Tuesday, August 16, 2016 08:15 - CONCLUSION: 1. Interval intubation. 2. Placement of nasogastric tube with the tip in the distal esophagus. This could be advanced at least 7 cm. 3. Mild interval increase in size the small right apical pneumothorax. 4. Increasing opacity in the right lung base most consistent with infiltrate. Barrett Holman MD Chest X-Ray 08/15/16 1300 Signed Impressions: Service Date/Time: July 12:55 - CONCLUSION: Stable tiny right apical pneumothorax. Neftaly Rodriguez MD Chest X-Ray 08/15/16 1200 Signed Impressions: Service Date/Time: July 11:51 - CONCLUSION: There is a new tiny apical right pneumothorax. Neftaly Rodriguez MD Chest X-Ray 08/15/16 1030 Signed Impressions: Service Date/Time: July 10:20 - CONCLUSION: No pneumothorax following recent right lung biopsy. Neftaly Rodriguez MD Lung Biopsy CT 08/15/16 0000 Signed Impressions: Service Date/Time: July 08:22 - CONCLUSION: Uncomplicated CT guided biopsy of the right upper lobe lung mass. Neftaly Rodriguez MD Chest X-Ray 08/15/16 0000 Signed Impressions: Service Date/Time: July 14:33 - CONCLUSION: 1. Interval placement of right-sided chest tube with decrease in small pneumothorax with minute apical residual. 2. Patchy opacity in the right lung. Barrett Holman MD Chest X-Ray 08/15/16 0000 Signed Impressions: Service Date/Time: July 07:12 - CONCLUSION: 1. No pneumothorax is visualized. Right chest wall [id number] distal tip is at the cavoatrial junction. 2. Right upper lobe pulmonary mass is again visualized. Neftaly Rodriguez MD CT Angiography 08/15/16 0000 Signed Impressions: Service Date/Time: , August 15, 2016 13:22 - CONCLUSION: 1. There is acute appearing PE in the right lower lobe segmental and left lower lobe subsegmental pulmonary arteries. These PE are new since the prior CT from 07/09/2016. 2. Small right pneumothorax. 3. Right upper lobe pulmonary mass remains present and measures 4.9 cm. There is associated mediastinal, right hilar, and right supraclavicular lymphadenopathy suspicious for lymphatic spread of disease. Neftaly Rodriguez MD Procedures 08/16/16 IVC filter 08/15/16 intubated 08/15/16 chest tube Patient/Family Conference Present at Family Conference: Erika, son, Neftaly, [id number], Key Family Conference Location: Consult Room Issues Discussed: * Palliative care role, purpose, approach * Additional medical, psychosocial, and spiritual history * Patients general health, functional status, and cognitive changes in the months leading up to the current hospitalization * Patient/family understanding of the current medical problems * Patient/family understanding of prognosis * Patients goals of care as best understood from advance directives and/or conversations and/or values * Current medical treatment options and benefits/burdens of those options * Likely scenarios comparing ongoing aggressive care with a transition to comfort measures only * Questions answered to the best of my ability * Palliative care contact information provided Assessment and Plan Disease Oriented Problem List: (1) Stroke (2) Pulmonary embolism (3) Non-STEMI (non-ST elevated myocardial infarction) (4) DVT (deep venous thrombosis) (5) Lung cancer Symptom Scale: (1) Pain Comment: History of osteoarthritis Pertinent Non-Medical Issues Psychosocial: He is , has 1 son, lives in [place], worked in auto body repair and painting, 40 year history smoking, Spiritual: Nondenominational Legal: This time,His is his legal healthcare decision-maker, she is supported by their sonNeftaly Ethical issues impacting care: Important Contacts Erika Chávez, , [phone] Neftaly Chávez, son, Prognosis Prognosis is extremely poor light of the history of events, resulting in a large left brain stroke, recent MN, recent PE, recent DVT, unable to be on anticoagulation due to the nature of hemorrhage in the brain and high risk for further embolisms Plan Decision Maker: Erika Chávez, , Code Status: Family unable to decide at this time Family Discussion: Attempted to provide family with information and answer their questions regarding Mr. Chávez. They are argumentative on them each other , as to importance of information and prior to events. Relative to goals of care. It was difficult to get them to come to a point of understanding and agreement yet. Mrs. Chávez indicates that her would not want extreme measures if he could not recover from them. At one point, she indicates her goal as him being able to breathe on his own again, yet the next moment she understands that he is dying and that likely would not wake up on his own. She was not willing to entertain the thought of an ICP drain nor a trach. She also was not willing to entertain CODE STATUS. She understands that at this point treating his lung cancer is on the "back burner". At this point, they are intent to wait until Friday before making any decisions Symptoms: Dyspnea and pain Palliative care phone number provided - will follow during hospital stay. Thank you for the opportunity to participate in the care of Mr. Cooley. Attestation To help prompt me to consider important information that might be impacting today's encounter and assessment, information from prior notes written by myself or my colleagues may have been "brought forward" into today's note. My signature on this note, however, is an attestation that I personally performed the exam, history, and/or decision-making noted today, and, unless otherwise indicated, the interactions with patient, family, and staff as well as the review of records all occurred today. I also attest that the listed assessment and stated plan reflect my best clinical judgment today based on the combination of historical information, prior notes, and today's exam/ interactions. When time spent is documented, it refers only to time spent today by the signer, or if indicated, combined time spent today by collaborating physician/nurse practitioner. Dionna Frazier Aug 16, 2016 10:52
[2016-08-16] MEDS ORDERED: GADODIAMIDE PF 287 MG/ML 20 ML VIAL (for RAD MRI) IV ONE (11:40)
[2016-08-16] MEDS ORDERED: IOHEXOL 350 MG/ML 50 ML BTL (for RAD DIAG) IV ONE (11:55)
--- NOTE | 2016-08-16 12:18 | RADRPT ---
EXAM DATE/TIME: 08/16/2016 10:27 [facility] COMPARISON: No previous studies available for comparison. INDICATIONS : CVA. Metastatic disease. CONTRAST: 20 cc Omniscan (gadodiamide) IV MEDICAL HISTORY : Carcinoma, lung. Chronic obstructive pulmonary disease. Diabetes mellitus type 2. Hypertension. SURGICAL HISTORY : Coronary artery stent. Port placement. ENCOUNTER: Initial ACUITY: 1 day PAIN SCORE: 0/10 LOCATION: Cranial TECHNIQUE: Multiplanar, multisequence MRI of the brain was performed both prior to and following the administrat ion of paramagnetic contrast. FINDINGS: There is a large area of restricted diffusion involving most of the middle cerebral artery territory on the left. Patchy restricted diffusion seen in the right parietal region. There are no extraaxial fluid collections appreciated. Following intravenous administration of gadolinium there is no abnormal contrast enhancement. CONCLUSION: Large area of infarction involving the left Sylvian region. There is occlusion of the distal left MC A. There is some collateralization distally. Harshad Campbell MD FACR on August 16, 2016 at 12:05 Board Certified Radiologist. This report was verified electronically.
--- NOTE | 2016-08-16 12:28 | RADRPT ---
EXAM DATE/TIME: 08/16/2016 10:27 [facility] COMPARISON: No previous studies available for comparison. INDICATIONS : CVA. Metastatic disease. CONTRAST: 20 cc Omniscan (gadodiamide) IV MEDICAL HISTORY : Carcinoma, lung. Chronic obstructive pulmonary disease. Diabetes mellitus type 2. Hypertension. SURGICAL HISTORY : Coronary artery stent. Port placement. ENCOUNTER: Initial ACUITY: 1 day PAIN SCORE: 0/10 LOCATION: Cranial TECHNIQUE: Whole brain MR perfusion was performed. Parametric maps generated included time to peak, mean transi t time, cerebral blood volume and cerebral blood flow. FINDINGS: There is significantly decreased perfusion in the left Sen region with markedly delayed transit ti me extends to the cortical surface of the brain. Cerebral blood volume on the left side is diminishe d as well. CONCLUSION: Markedly abnormal cerebral perfusion corresponding to the large MCA occlusion on the left. Harshad Campbell MD FACR on August 16, 2016 at 12:16 Board Certified Radiologist. This report was verified electronically.
--- NOTE | 2016-08-16 12:35 | PD.RAD ---
Post Procedure Progress Note Pre Procedure Diagnosis: (1) DVT (deep venous thrombosis) Post Procedure Diagnosis: (1) DVT (deep venous thrombosis) Procedure Date: Aug 16, 2016 Supervising Radiologist: Israel Okeefe Proceduralist/Assist: Jorge Robison, RT(R), Marilee Cortés RT(R)() Anesthesia: Conscious Sedation Plan of Activity Patient to Unit: Nursing Unit Patient Condition: Poor See PACS Report for procedural detail/treatment Vascular-Venous Procedure Procedure 1 Procedure Site: Abdominal Procedure(s): Permanent IVC Filter Access Access Site(s): Right Jugular Vein Israel Okeefe MD Aug 16, 2016 12:35
--- NOTE | 2016-08-16 13:15 | MB ---
cc: KIRIT CARMONA M.D. DATE OF CONSULTATION: 08/16/[address] Harrell. REASON FOR CONSULTATION Oncology consult render opinion regarding patient with lung mass admitted with respiratory failure. HISTORY OF PRESENT ILLNESS The patient is a 50-year-old male recently found to have right upper lobe lung mass with mediastinal hilar adenopathy. He went to [facility] and PET scan showed that these lesions were hypermetabolic. He did not have a biopsy done. He also recently found to have left lower extremity deep venous thrombosis. He had a port placement on Friday and reportedly doing well, yesterday when the he went for biopsy of lung mass. He was having shortness of breath after the biopsy and he was found to have pneumothorax and he developed worsening respiratory distress. CT angiogram was done which showed bilateral subsegmental pulmonary embolism. He was admitted to the ICU. A chest tube was placed, reportedly in the evening he developed right-sided paralysis and was found to have a major stroke in the left hemisphere. At this point the patient is on the ventilator. History was obtained from his and son. PAST MEDICAL HISTORY: 1. Past medical history of chronic obstructive pulmonary disease. 2. Anxiety. 3. Osteoarthritis. 4. Left lower extremity venous thrombosis. 5. Osteopenia. PAST SURGICAL HISTORY 1. Bilateral hernia repair. 2. Excision of possible melanoma from his nose with full-thickness skin grafting. 3. Port placement. 4. Lung biopsy. FAMILY HISTORY Noncontributory. SOCIAL HISTORY 40 pack-year smoking history. He quit alcohol. ALLERGIES NO KNOWN DRUG ALLERGIES. CURRENT MEDICATIONS 1. Dilantin. 2. Aspirin 3. Spiriva 4. Mannitol. 5. Chlorhexidine. 6. DuoNeb's. 7. Abilify. 8. Symbicort. 9. Trazodone 10. Solu-Medrol. 11. Levaquin. 12. Pepcid 13. Gabapentin. REVIEW OF SYSTEMS Obtained from the family as above. PHYSICAL EXAMINATION VITAL SIGNS: Temperature 90.5, blood pressure 36, 90, O2 saturation 97 percent on ventilator. IN GENERAL: He is sedated but is open eyes to command. HEAD, EYES, EARS, NOSE, AND THROAT: Atraumatic, normocephalic. Pupils equal round reactive to light. ET tube noted. No bleeding noted. NECK: No thyromegaly. No palpable masses. LYMPHATICS: No palpable cervical, clavicular, axillary lymph nodes. CARDIOVASCULAR SYSTEM: Regular S1-S2 no murmur. LUNGS: Lungs clear to auscultation anteriorly. ABDOMEN: The abdomen was soft, nontender, positive bowel sounds. EXTREMITIES: No cyanosis, no clubbing, no edema. SKIN: No rash or petechia. NEUROLOGIC: He is sedated. LABORATORY DATA: Laboratory data reviewed ASSESSMENT 1. Right upper lobe lung mass measured 4.4 cm with mediastinal, right supraclavicular and right hilar adenopathy. He went to [facility] and had PET scan done which did not show any other distant metastasis. Clinically this is suspicious for primary lung cancer and I suspect he has [id number] lung cancer. Based on the CT scan finding he is clinically stage IIIA. He had a biopsy yesterday and pathology is pending. If pathology confirms that he has [id number] lung cancer, the treatment is concurrent chemotherapy and radiation. However given his stroke we will have to wait and see how much he is able to recover, hopefully he will still be strong enough for treatment. I had extensive discussion with the patients and son regarding the management of the lung mass / cancer. 2. Respiratory failure. He developed a small pneumothorax after the biopsy. He also was found to have bilateral subsegmental pulmonary embolism. He had left lower extremity deep venous thrombosis more than a month ago, he likely had developed the pulmonary embolism after he stopped the anticoagulation for the biopsy. He was started on anticoagulation yesterday. Unfortunately he was found to have a massive stroke last night with cerebral edema. He has high risk of hemorrhagic transformation and neurology does not recommend anticoagulation. On exam he has no lower extremity edema and no clear evidence of significant clot in the lower extremity. However, he has high risk of developing further pulmonary embolism given his hypercoagulable state due to cancer. I have had extensive discussion with the patient's and son regarding this difficult clinical dilemma. The patient needs anticoagulation but it is contraindicated due to high risk of cerebral bleeding from the stroke. We talked about IVC filter placement which could somewhat protect him from further pulmonary embolism. I explained the procedure to them and they agreed to have IVC filter placement. We will consult interventional radiology for IVC filter placement. 3. Right lung pneumothorax status post chest tube placement. 4. Large left sided cerebral stroke with edema. Neurology is following, waiting to get MRI. 5. Chronic obstructive pulmonary disease. 6. History of anxiety. PLAN/RECOMMENDATIONS 1. I had an extensive discussion with the patient's and his son. I have also discussed care with Dr. Harrell. 2. I have recommended IVC filter placement. Since anticoagulation is contraindicated at this time. 3. Await pathology of lung biopsy. 4. Continue supportive care. Thank you Dr. Harrell for asking us see this patient. MD JHONY Vee/wilner /12:24 PM /12:47 PM [email or web address]
--- NOTE | 2016-08-16 13:32 | RADRPT ---
EXAM DATE/TIME: 08/16/2016 10:30 [facility] COMPARISON: No previous studies available for comparison.8 INDICATIONS : Patient is in need of placement of a non retrievable IVC filter due to history of DVT and CVA. MEDICAL HISTORY : History of left lower leg DVT, CVA, IA, COPD, CAD, lung mass, bilateral PE, right pneumothorax, hyper lipidemia bipolar disorder. SURGICAL HISTORY : History of cardiac catheterization with stent placement, port placement, lung biopsy, skin cancer rem oval, hernia repair. ENCOUNTER: Initial ACUITY: 2 days PAIN SCORE: 0/10 LOCATION: Patient is vented. FLUORO TIME: 1.4 minutes IMAGE SERIES: 2 ACCESS SITE: Right Internal jugular vein CONTRAST: 1.) 10 cc Omnipaque (iohexol) 350 DEVICE(S): 1.) Inferior vena cava B Vidal Venatech filter PROCEDURE : 1. Ultrasound-guided venipuncture. 2. Inferior venacavogram. 3. Inferior vena cava filter placement. 4. Conscious sedation with continuous EKG and oximetry monitoring. The risks, benefits and alternatives to the procedure were explained and verbal and written consent w as obtained. The site was prepped in sterile fashion. Full sterile technique was used, including ca p, mask, sterile gloves and gown and a large sterile sheet. Hand hygiene and 2% chlorhexidine and/or betadine/alcohol prep was utilized per protocol for cutaneous antisepsis. The skin and subcutaneous tissues were infiltrated with local anesthetic solution. With ultrasound and fluoroscopic guidance the targeted vein was punctured and a vascular sheath was p laced. Inferior venacavogram was performed to demonstrate level of renal veins. No caval thrombus was identified. The prescribed filter was deployed in the infrarenal inferior vena cava. Following deplo yment the filter was identified in good position. Conscious sedation was performed with the prescribed dosages and duration as above in the presence of an independent trained radiology nurse to assist in the monitoring of the patient. EKG and oximetry remained stable throughout the procedure. The patient tolerated the procedure well and there were n o complications. The patient was sent to post anesthesia recovery in stable condition. CONCLUSION: Uncomplicated inferior vena cava filter placement as above. Israel Okeefe MD on August 16, 2016 at 13:30 Board Certified Radiologist. This report was verified electronically.
[2016-08-16] MEDS: PHENYTOIN INJ 100 MG/2 ML VIAL IV SCH ×2 (13:59→21:34)
--- NOTE | 2016-08-16 14:13 | MG ---
cc: PETER HARMON M.D. Lab No: [id number] Date: 08/16/2016 Age: Sex: M Race: TECHNIQUE: 17 channel EEG. DESCRIPTION: Background rhythm shows slowing predominantly over the left hemisphere in the delta frequency. The right hemispheres in the alpha to theta range. The frequency on the left side is roughly 3-4 Hz and on the right side it is 6-8 Hz. No epileptiform features are identified. Photic results in no significant driving response. INTERPRETATION: Abnormal study. There is focal slowing over the left hemisphere which is consistent with the patient's known history of left hemisphere stroke. MD TRACY Richards/LEVON /1:55 PM /2:07 PM
--- NOTE | 2016-08-16 14:25 | HHI.CCPN ---
Subjective Remarks/Hospital Course 08/15: Mr. Cooley is a 50 y/o CM with a PMHx of COPD who continues to smoke and is s/p R lung biopsy secondary to a recently found lung mass presenting with dyspnea. Prior to his biopsy today, he was being treated as an outpatient with a Medrol dose pack with Levaquin for a COPD exacerbation. He endorsed dyspnea on exertion today, but denied any fevers, chest pain, wheezing, cough, or LE edema/tenderness. He has a history of LLE DVT diagnosed in 07/05, but has been off his anticoagulation for approximately 11 days (Previously on Xarelto). He had a port placed 2 days ago and lung biopsy today. He has been short of breath since 1 day prior to the procedure. After his biopsy, he was found to have a small apical pneumothorax on CXR, diaphoretic, and tachypneic with hypoxia of 81 % on room air. He was placed on 4L and improved to 85%. He was then placed on a non-rebreather and transferred to the ICU. On arrival he was tachypneic with oxygen saturation in the upper 80s. CTA showed acute pulmonary embolisms of the BL lower lobes with a small R pneumothorax. Therefore a R sided chest tube was placed and heparin drip without bolus was initiated. The patient has been continued on Levaquin ABX, has been give steroids with multiple breathing treatments, and has been placed on BiPAP. 08/16: Patient was noted to have an elevated troponin and was diagnosed to have a non-ST elevation AZ last evening. He was on BiPAP at the time with full facemask. It was noticed that he was not moving the right side of his body when he was turned to administer rectal aspirin and subsequent head CT and CTA revealed significant edema in the left cerebral hemisphere and occluded left MCA with thrombus. Neurology was contacted by Dr. Martínez and due to concern for hemorrhagic transformation heparin was held. Dr. Martínez discussed the case with Dr. Okeefe from interventional radiology who did not feel that the patient was a good candidate for clot retrieval due to high risk for hemorrhagic transformation given the amount of cerebral edema and extent of infarct. Patient was given mannitol. This morning when I evaluated patient was in BiPAP with full facemask with a dense right hemiplegia with some spontaneous movement involving his left upper extremity. He was intubated and placed on mechanical ventilation for airway protection and hyperventilation in view of cerebral edema as well as for borderline respiratory status. Subsequently he underwent MRI brain which showed large left MCA territory infarct with some collateral flow. IVC filter was placed by interventional radiology after discussion with Dr. Murry, his oncologist as patient is now off heparin and is at risk for recurrent PE. Objective Vital Signs Date Time Temp Pulse Resp B/P Pulse Ox O2 Delivery O2 Flow Rate FiO2 08/16/16 12:26 98 50 08/16/16 12:00 102 08/16/16 12:00 98.9 26 95/61 08/16/16 07:00 Mechanical Ventilator 08/16/16 04:00 15.00 Intake and Output 08/15/16 08/15/16 08/16/16 08:00 16:00 00:00 Intake Total 791 ml Output Total 545 ml Balance 246 ml Result Diagram: 08/16/16 0250 08/16/16 1201 Other Results Microbiology Date/Time Procedure Status Source Growth 08/15/16 22:00 Legionella Antigen - Final Complete Urine Random Urine PRESUMPTIVE NEGATIVE FOR LEGIONELLA P... 08/15/16 22:00 Streptococcus pneumoniae Antigen (M - Final Complete Urine Random Urine PRESUMPTIVE NEGATIVE FOR STREPTOCOCCU... Laboratory Tests Test 08/15/16 08/15/16 08/16/16 08/16/16 15:00 19:15 01:16 08:57 Blood Gas Puncture Site RT RADIAL RT RADIAL RT RADIAL RT RADIAL Blood Gas Patient Temperature 98.6 98.6 98.6 98.6 Blood Gas HCO3 27 mmol/L 24 mmol/L 25 mmol/L 26 mmol/L (22-26) (22-26) (22-26) (22-26) Blood Gas Base Excess -0.6 mmol/L -2.5 mmol/L -0.4 mmol/L -0.3 mmol/L (-2-2) (-2-2) (-2-2) (-2-2) Blood Gas Oxygen Saturation 97 % (90-100) 95 % (90-100) 97 % (90-100) 95 % (90- 100) Arterial Blood pH 7.20 7.25 7.32 7.28 (7.380-7.420) (7.380-7.420) (7.380-7.420) (7.380-7.420) Arterial Blood Partial 72 mmHg (38-42) 57 mmHg (38-42) 49 mmHg (38-42) 56 mmHg ( 38-42) Pressure CO2 Arterial Blood Partial 323 mmHg 125 mmHg 154 mmHg 105 mmHg Pressure O2 (61-120) (61-120) (61-120) (61-120) Arterial Blood Oxygen Content 19.3 Vol % 19.1 Vol % 18.2 Vol % 18.1 Vol % (12.0-20.0) (12.0-20.0) (12.0-20.0) (12.0-20.0) Arterial Blood 1.5 % (0-4) 1.3 % (0-4) 1.2 % (0-4) 1.2 % (0-4) Carboxyhemoglobin Arterial Blood Methemoglobin 1.2 % (0-2) 1.2 % (0-2) 1.0 % (0-2) 1.2 % (0-2) Blood Gas Hemoglobin 13.7 G/DL 14.2 G/DL 13.2 G/DL 13.5 G/DL (12.0-16.0) (12.0-16.0) (12.0-16.0) (12.0-16.0) Oxygen Delivery Device PRB BIPAP 15/5/60% BIPAP 15/5/50% VENTILATOR Blood Gas Liter Flow 15 L/M Blood Gas Inspired Oxygen 60 % 50 % 50 % Blood Gas Ventilator Setting A/C 20/600/5 PEEP Imaging Last 72 hours Impressions Chest X-Ray 08/15/16 1300 Signed Impressions: Service Date/Time: July 12:55 - CONCLUSION: Stable tiny right apical pneumothorax. Neftaly Rodriguez MD Chest X-Ray 08/15/16 1200 Signed Impressions: Service Date/Time: July 11:51 - CONCLUSION: There is a new tiny apical right pneumothorax. Neftaly Rodriguez MD Chest X-Ray 08/15/16 1030 Signed Impressions: Service Date/Time: July 10:20 - CONCLUSION: No pneumothorax following recent right lung biopsy. Neftaly Rodriguez MD Lung Biopsy CT 08/15/16 0000 Signed Impressions: Service Date/Time: July 08:22 - CONCLUSION: Uncomplicated CT guided biopsy of the right upper lobe lung mass. Neftaly Rodriguez MD Chest X-Ray 08/15/16 0000 Signed Impressions: Service Date/Time: July 07:12 - CONCLUSION: 1. No pneumothorax is visualized. Right chest wall [id number] distal tip is at the cavoatrial junction. 2. Right upper lobe pulmonary mass is again visualized. Neftaly Rodriguez MD CT Angiography 08/15/16 0000 Signed Impressions: Service Date/Time: July 13:22 - CONCLUSION: 1. There is acute appearing PE in the right lower lobe segmental and left lower lobe subsegmental pulmonary arteries. These PE are new since the prior CT from 07/09/2016. 2. Small right pneumothorax. 3. Right upper lobe pulmonary mass remains present and measures 4.9 cm. There is associated mediastinal, right hilar, and right supraclavicular lymphadenopathy suspicious for lymphatic spread of disease. Neftaly Rodriguez MD Objective Remarks HEENT/ Neuro: Sedated, orally intubated, Pallor present, no icterus, tongue/ mucosa moist. Pupils 3 mm bilaterally reacting actively to light. Opens eyes occasionally on lightening sedation. Dense right hemiplegia. Localizes with left upper and lower extremity. Neck: No JVD Chest/Pulm: on mech vent, good air entry bilaterally, minimal wheezing, no crackles. Right sided chest tube in place, no air leak noted. Port noted over right chest wall. CVS: S1-S2 regular, no murmur GI/abdomen: soft, nontender, bowel sounds sluggish Extremities: warm bilaterally, no edema Urinary Catheter: Yes Assessment to: Continue A/P Assessment and Plan Neuro: Left MCA territory ischemic infarct with cerebral edema Encephalopathy Bipolar Disorder with depression/anxiety Sedation with propofol, daily sedation vacation. Neurochecks per protocol. Neurology and neurosurgery consulted. Started on mannitol. Plan to start 3% saline per discussion with neurosurgery after placement of central line. Continue antiplatelet therapy per neurology-aspirin. Repeat head CT tomorrow per discussion with neurosurgery. Monitor neuro status with neuro checks per protocol CV: Hypotension Non-ST elevation AZ History of HTN, CAD with AZ s/p stent placement(2002) 2-D echo with no evidence of R heart strain. Difficult study due to tachycardia. EF 35-40%. Moderate mid to distal inferior hypokinesis and distal lateral hypokinesis. Trace tricuspid regurgitation. PA peak pressure 53 mmHg. Elevated cardiac enzymes/ EKG consistent with non-ST elevation AZ. On aspirin. Cardiology consulted. Started on Levophed for pressor support after fluid bolus earlier. Hold all antihypertensives Pulm: Right pneumothorax BL PEs on CTA COPD Exacerbation R Lung mass s/p biopsy R sided chest tube to suction Intubated and placed on mechanical ventilation. Vent bundle, bronchodilators Solumedrol 60mg Q6H Right sided chest tube in place, no air leak noted. End-tidal CO2 monitoring, attempt keeping PCO2 30-35mm Hg Renal/: NS to 60 ml/hr as patient with decreased EF Strict intake output, monitor and replete elect lites, follow BUN/ creatinine. ID: Elevated WBC s/p outpatient steroids with Levaquin for COPD exacerbation Continue with empiric abx (Levaquin) and monitor for signs of infections( fever and WBC) Legionella and Streptococcus urinary antigens pending Heme-onc: DVT/PE/right apical lung mass highly suspicious for malignancy Off anticoagulation with heparin due to large stroke with risk for hemorrhagic transformation. IVC filter placed for/28. Continue aspirin. We will discuss starting DVT prophylaxis with subcutaneous heparin with neurology following repeat head CT tomorrow. Monitor CBC. Discussed with Dr. Murry from Oncology Endocrine: Hx of DM per chart review, not on medications at home SSI per protocol GI: Patient to remain NPO. We'll consider tube feeds tomorrow. Prophylaxis with Pepcid BID DVT prophylaxis: SCDs. Subcutaneous heparin after clearance by neurology/ neurosurgery Case discussed with Dr. Jean from neurology/neurosurgery/oncology-Dr. Murry. Long discussion with patient's family this morning regarding current clinical status and plan of care and they voiced understanding and were agreeable. Also discussed palliative care consult which they are interested in as they did not want long-term mechanical ventilation if patient was not going to do well. Condition critical. Time spent on critical care excluding procedures 60 minutes Josehp Harrell MD Aug 16, 2016 14:25
[2016-08-16] MEDS ORDERED: NOREPINEPHRINE-DEXTROSE DRIP 250 ML IV ONE (14:42)
--- NOTE | 2016-08-16 15:07 | PD.CONS ---
REASON FOR CONSULTATION: Left hemispheric stroke HISTORY OF PRESENT ILLNESS: 50-year-old gentleman with a history of a lung mass status post lung biopsy that resulted in pneumothorax for which he required a chest tube placement. Patient has history of lower extremity DVT. Patient became hypoxic and tachypneic and a CTA of the chest revealed bilateral pulmonary embolism. At some point overnight the patient was found to be right hemiparetic/hemiplegic and a head CT was done that revealed diffuse left-sided hemispheric edema. A brain CT arthrogram revealed occlusion of the left middle cerebral artery close to the bifurcation region. I discussed case with Dr. Okeefe and patient is not a candidate for thrombectomy. He was not a good candidate for TPA either. Patient was intubated . MRI of the brain confirm restriction diffusion along the left MCA territory. There are no areas of intracranial hemorrhage and there is no evidence of midline shift at this point. An IVC filter was placed today. Patient's and son at bedside and I explained to them all details of Mr. Cooley's neurological condition. PAST MEDICAL HISTORY: Lung mass, DVT, coronary artery disease, diabetes mellitus , bipolar disorder, hypertension, hyperlipidemia, COPD PAST SURGICAL HISTORY: no intracranial or spinal surgeries. Cardiac catheterization, bilateral hernia repair, skin cancer removal PAST SOCIAL HISTORY: no smoking, no ETOH or illicit drug use FAMILY HISTORY: no intracranial or spinal conditions, lung CA ALLERGIES: NKDA MEDICATIONS: For home medications please review medication reconciliation released in the electronic medical record. Active Medications Albuterol/ Ipratropium (Duoneb Neb) 1 ampule ONCE ONCE NEB Last administered on 08/15/16 15:53; Admin Dose 1 AMPULE; Start 08/15/16 at 15:00; Stop 08/15/16 at 15:01; Status DC Aripiprazole (Abilify) 15 mg HS PO; Start 08/15/16 at 21:00 Aspirin (Aspirin Supp) 300 mg DAILY RECTAL; Start 08/16/16 at 10:00 Aspirin (Aspirin Supp) 300 mg ONCE ONCE RECTAL Last administered on 08/15/16 23:41; Admin Dose 300 MG; Start 08/15/16 at 23:15; Stop 08/15/16 at 23:16; Status DC Budesonide/ Formoterol Fumarate (Symbicort 160-4.5 Inh) 2 puff Q12HR INH; Start 08/15/16 at 21:00 Chlorhexidine Gluconate (Chlorhexidine 2% Cloth) 3 pack Taper DAILY@04 TOP Last administered on 08/16/16 04:00; Admin Dose 3 PACK; Start 08/16/16 at 04:00; Stop 08/12/17 at 03:59 Dextrose (D50w (Vial) Inj) 25 ml UNSCH PRN IV PUSH; Start 08/15/16 at 17:30 Enoxaparin Sodium (Lovenox Inj) 70 mg Q12H SQ; Start 08/16/16 at 01:00; Stop at 01:00; Status DC Etomidate (Amidate Inj) 40 mg STK-MED ONCE .ROUTE Last administered on 08:38; Admin Dose 40 MG; Start 08/16/16 at 07:54; Stop 08/16/16 at 07:55; Status DC Famotidine (Pepcid Inj) 20 mg Q12H IV PUSH Last administered on 08/16/16 04:52 ; Admin Dose 20 MG; Start 08/15/16 at 16:00 Fentanyl Citrate (fentaNYL INJ) 200 mcg STK-MED ONCE .ROUTE Last administered on 08/16/16 07:54; Admin Dose 200 MCG; Start 08/16/16 at 07:54; Stop 08/16/16 at 07:55; Status DC Fluoxetine HCl (PROzac) 60 mg DAILY PO; Start 08/16/16 at 09:00; Status Hold Gadodiamide (Omniscan Pf Inj) 20 ml STK-MED ONCE IV Last administered on 11:40; Admin Dose 20 ML; Start 08/16/16 at 11:40; Stop 08/16/16 at 11:41; Status DC Glucagon (Glucagon Inj) 1 mg UNSCH PRN OTHER; Start 08/15/16 at 17:30 Heparin Sodium (Porcine) (Heparin Inj) 2,500 units UNSCH PRN IV; Start at 19:15; Status Hold Heparin Sodium (Porcine) (Heparin Inj) 5,000 units UNSCH PRN IV; Start at 19:15; Status Hold Hydralazine HCl (Apresoline Inj) 10 mg Q2HR PRN IV PUSH Last administered on 04:36; Admin Dose 10 MG; Start 08/15/16 at 16:00 Iohexol (Omnipaque 350 Inj) 10 ml STK-MED ONCE IV Last administered on 11:55; Admin Dose 10 ML; Start 08/16/16 at 11:55; Stop 08/16/16 at 11:56; Status DC Iohexol (Omnipaque 350 Inj) 75 ml STK-MED ONCE IV Last administered on 04:22; Admin Dose 75 ML; Start 08/16/16 at 04:22; Stop 08/16/16 at 04:23; Status DC Levofloxacin/ Dextrose (Levaquin 750 Mg Premix Inj) 150 ml @ 100 mls/hr Q24H IV Last administered on 08/15/16 18:25; Admin Dose 100 MLS/HR; Start 08/15/16 at 16:00 Lorazepam (Ativan Inj) 2 mg STK-MED ONCE .ROUTE Last administered on 08/16/16 09:51; Admin Dose 2 MG; Start 08/16/16 at 09:51; Stop 08/16/16 at 09:52; Status DC Mannitol (Mannitol Inj) 12.5 gm Q6H IV Last administered on 08/16/16 11:30; Admin Dose 12.5 GM; Start 08/16/16 at 05:30 Methylprednisolone Sodium Succinate (SoluMEDROL INJ) 125 mg ONCE ONCE IV PUSH Last administered on 08/15/16 14:55; Admin Dose 125 MG; Start 08/15/16 at 15:00 ; Stop 08/15/16 at 15:01; Status DC Methylprednisolone Sodium Succinate 60 mg 60 mg Q6H IVP Last administered on 08:55; Admin Dose 60 MG; Start 08/15/16 at 21:00 Phenytoin Sodium (Dilantin Inj) 100 mg Q8HR IV Last administered on 08/16/16 13 :59; Admin Dose 100 MG; Start 08/16/16 at 14:00 Propofol (Diprivan 1000 Mg/100ml Inj) 100 ml @ As Directed STK-MED ONCE .ROUTE Last administered on 08/16/16 08:39; Admin Dose As Directed MLS/HR; Start 08/16 at 08:12; Stop 08/16/16 at 08:13; Status DC Rocuronium [place] 50 mg 50 mg STK-MED ONCE .ROUTE; Start 08/16/16 at 07:55; Stop 08/16/16 at 07:56; Status DC Rocuronium [place] (Zemuron Inj) 50 mg STK-MED ONCE .ROUTE Last administered on 08/16/16 08:38; Admin Dose 50 MG; Start 08/16/16 at 07:54; Stop 08/16/16 at 07: 55; Status DC Sodium Chloride (NS Flush) 2 ml BID IV FLUSH Last administered on 08/16/16 08: 40; Admin Dose 2 ML; Start 08/15/16 at 21:00 Tiotropium [place] (Spiriva Inh) 18 mcg DAILY INH; Start 08/16/16 at 09:00 Trazodone HCl (Desyrel) 100 mg HS PO; Start 08/15/16 at 21:00 REVIEW OF SYSTEMS: Unable to obtain due to her current condition PHYSICAL EXAMINATION: VITALS SIGNS: Vital Signs Date Time Temp Pulse Resp B/P Pulse Ox O2 Delivery O2 Flow Rate FiO2 08/16/16 12:26 98 50 08/16/16 12:00 102 08/16/16 12:00 98.9 26 95/61 08/16/16 07:00 Mechanical Ventilator 08/16/16 04:00 15.00 HEENT: Normocephalic/atraumatic. No facial dysmorphic features are present. Intubated SKIN: devoid of any neurocutaneous disorders. CV: heart is in regular rate and rhythm without murmur. ABD: benign, soft, flat, and without hepatosplenomegaly or tenderness. EXTREM: warm and without edema, clubbing, or cyanosis. NEUROLOGICAL EXAMINATION: MENTAL STATUS: Partially sedated but arousable. Does not follow commands. CRANIAL NERVES: Pupils are equal, round, and reactive to light accommodation. Visual jama are full. No vertical or horizontal nyastagmus is noted and visual pursuits were smooth. Gaze is conjugate and extraocular movements are full and without limitation. Face symmetric, tongue midline. Shoulder shrug and sternocleidomastiod strength symmetric and strong. MOTOR: Muscle strength : Strength is 5 out of 5 in all the major muscle groups in the left upper and lower extremity. He is hemiparetic on the right side with an approximate strength of 1/5 along all the major muscle groups SENSORY: Unable to test at this time REFLEXES: 2+ and symmetric bilaterally. No hyperreflexia or pathological reflexes noted. GAIT: not tested RELEVANT LABORATORY DATA: Laboratory Tests Test 08/16/16 08/16/16 08/16/16 08:41 08:57 12:01 Serum Osmolality 310 MOSM/KG 311 MOSM/KG Total Creatine Kinase 270 U/L Creatine Kinase MB 17.0 NG/ML Troponin I 4.11 NG/ML Blood Gas Puncture Site RT RADIAL Blood Gas Patient Temperature 98.6 Blood Gas HCO3 26 mmol/L Blood Gas Base Excess -0.3 mmol/L Blood Gas Oxygen Saturation 95 % Arterial Blood pH 7.28 Arterial Blood Partial 56 mmHg Pressure CO2 Arterial Blood Partial 105 mmHg Pressure O2 Arterial Blood Oxygen Content 18.1 Vol % Arterial Blood 1.2 % Carboxyhemoglobin Arterial Blood Methemoglobin 1.2 % Blood Gas Hemoglobin 13.5 G/DL Oxygen Delivery Device VENTILATOR Blood Gas Ventilator Setting A/C 20/600/5 PEEP Blood Gas Inspired Oxygen 50 % Sodium Level 142 MEQ/L CBC Diagram 08/16/16 02:50 BMP Diagram 08/15/16 18:46 08/16/16 02:03 ASSESSMENT: Left hemispheric MCA stroke with vasogenic edema. RECOMMENDATIONS: [address] of the brain in 24 hours or earlier if he develops new acute neurological deficits. 2 Management of brain edema: Continue with mannitol as ordered and start 3% NaCL. Maintain normonatremia. Management per ICU. 3 Continue Dilantin for seizure prophylaxis 4 No need for an acute surgical intervention. I explained the patient's and son that there is an increased risk for worsening brain edema within the next 2-3 days. Some patients benefit from a craniectomy when the brain edema cannot be controlled medically, however, this patient given the medical comorbidities would not be a good surgical candidate. Thank you for allowing me to participate in the care of your patient. If I can be of future assistance or should you have any questions about this or any other patient, please do not hesitate to contact me. Jairo Vasquez M.D. [facility] Neurosurgeon pager [phone] Jairo Vo MD Aug 16, 2016 15:07
[2016-08-16] MEDS ORDERED: TERBUTALINE INJ 1 MG/ML AMP SQ PRN (15:15)
--- NOTE | 2016-08-16 15:24 | PD.PROCEDR ---
Central Line Procedure REASON FOR PROCEDURE Central venous access PROCEDURE PERFORMED Central line placement: Left internal jugular vein under ultrasound guidance CONSENT Informed consent for procedure was obtained from family and documented on chart. The risks and benefits of the procedure were discussed to include but not limited to bleeding, clot formation, infection, pneumothorax. ANESTHESIA Local injection of 1% Lidocaine DESCRIPTION OF THE PROCEDURE The patient was placed in supine, mild Trendelenburg position. The area was exposed and cleansed with ChloraPrep, times two. Large sterile drape was used to cover the patient, with the site exposed, under sterile conditions including cap, face mask, sterile gown, and sterile gloves. On single attempt, the introducer needle was inserted with negative pressure in syringe and venous flash was obtained. The guide wire was then advanced without any restriction and the needle was removed. The dilator was used without any complications. Using Seldinger technique, a 20 cm antimicrobial coated triple lumen catheter was advanced over the guide wire to a depth of 19 centimeters. The guide wire was removed. All ports were aspirated with dark venous blood return and flushed easily with sterile saline. All ports were capped. Antibiotic disc was placed around central line at puncture site. The central line was secured to the skin with a stat lock. The area was bandaged with sterile see-through central line bandage. Postprocedure chest x-ray was ordered and was pending at the time of this dictation. It will be reviewed when available. RADIOLOGICAL DATA Ultrasound guidance was used to locate the left internal jugular vein. COMPLICATIONS: No apparent complications ESTIMATED BLOOD LOSS: 3 cc. Joseph Harrell MD Aug 16, 2016 15:24
--- NOTE | 2016-08-16 15:26 | PD.PROCEDR ---
Procedure Note Procedure Procedure: Endotracheal intubation Preop diagnosis: Encephalopathy, acute respiratory failure on BiPAP, large ischemic stroke with cerebral edema, PE, COPD exacerbation Postop diagnosis: Same Indication: Airway protection and respiratory failure Sedation used: Etomidate 30 mg, fentanyl 200 mcg, rocuronium 50 mg IV Procedure: Patient was preoxygenated with 100% oxygen via [] Ambu bag with bag mask ventilation, following induction of sedation and neuromuscular blockade, direct laryngoscopy was performed using a Mac 4 blade with good visualization of vocal cords. An 8 Latv[place] ET tube was passed through the vocal cords under direct visualization up to the 24 centimeter fabienne and after inflating cuff of ET tube, correct placement was confirmed using bagging with good color change on CO2 detector, 5 point auscultation and chest rise with ventilation. Patient was connected to mechanical ventilation. Patient tolerated the procedure well with no immediate complications noted. Postprocedure chest x-ray was ordered. Joseph Harrell MD Aug 16, 2016 15:26
[2016-08-16] MEDS ORDERED: 3% SALINE INJ 500 ML IV ONE (15:30)
[2016-08-16 15:49] LABS: CREATINE KINASE 190 U/L (39-308)
[2016-08-16 16:18] LABS: CKMB 16.9 NG/ML (0.5-3.6)
[2016-08-16] MEDS: SODIUM CHLOR 0.9% 1000 ML INJ 1,000 ML IV SCH (16:20)
[2016-08-16] MEDS: LEVOFLOXACIN 750 MG PREMIX INJ 150 ML IV SCH (16:20)
[2016-08-16 16:54] LABS: BLOOD GAS CARBOXYHEMOGLOBIN 1.3 % (0-4); BLOOD GAS HCO3 25 mmol/L (22-26); BLOOD GAS METHEMOGLOBIN 1.3 % (0-2); BLOOD GAS O2 HGB SATURATION 96 % (90-100); BLOOD GAS OXYGEN CONTENT 17.3 Vol % (12.0-20.0); BLOOD GAS PCO2 42 mmHg (38-42); BLOOD GAS PO2 138 mmHg (61-120); BLOOD GAS TOTAL HGB 12.6 G/DL (12.0-16.0); CRITICAL VALUE NO; OXYGEN DEVICE VENTILATOR; TEMP CORR TO 98.6
[2016-08-16 16:55] LABS: DRAW SITE ART LINE; FIO2 50 %; STAT NO; VENT SETTINGS A/C 26/600/5 PEEP
--- NOTE | 2016-08-16 16:58 | RADRPT ---
EXAM DATE/TIME: 08/16/2016 15:33 [facility] COMPARISON: CHEST SINGLE AP, August 16, 2016, 8:15. INDICATIONS : Evaluate central line placement. MEDICAL HISTORY : Carcinoma, lung. Chronic obstructive pulmonary disease. Diabetes mellitus type 2. Hypertension. SURGICAL HISTORY : Coronary artery stent. Port placement. ENCOUNTER: Subsequent ACUITY: 1 day PAIN SCORE: Non-responsive. LOCATION: Bilateral chest. FINDINGS: The cardiac silhouette is normal in transverse diameter. There is prominence of the central pulmonary vasculature with indistinct vascular margins compatible with vascular congestion but no evidence of overt failure. A left sided internal jugular vein catheter is in place without pneumothorax with its tip in the superior vena cava. [id number] is in place via right internal jugular approach with its tip in the superior vena cava.endotracheal tube is in good position above the bisi. There is a sma ll right apical pneumothorax decreasing in size when compared with the prior study. CONCLUSION: 1. Uncomplicated line placement. No evidence of pneumothorax. 2. Decreasing right apical pneumothorax Israel Okeefe MD on August 16, 2016 at 16:55 Board Certified Radiologist. This report was verified electronically.
[2016-08-16] MEDS: PROPOFOL 1000 MG/100 ML INJ 100 ML IV SCH (18:30)
[2016-08-16 19:07] LABS: LACTIC ACID GHOST NOT REPORTABLE
--- NOTE | 2016-08-16 19:27 | MB ---
cc: LEONEL DUQUE MD DATE OF CONSULTATION 08/16/16 HISTORY OF PRESENT ILLNESS Mr. Cooley is a 50-year-old white male with a history of DVT, on Xarelto. He underwent right apical lung mass biopsy. He developed shortness of breath afterwards and was found to have pulmonary embolism. He subsequently developed right sided weakness and his CT scan showed a large left sided stroke with significant edema. There was also thrombosis of the left MCA. The patient was intubated and placed on the ventilator. His anticoagulation has been on hold due to a stroke. IVC filter was placed. PAST MEDICAL HISTORY Positive for DVT, COPD, lung mass, coronary artery disease, coronary stenting, dyslipidemia, bipolar disorder. MEDICATIONS Include: 1. Dilantin. 2. Spiriva. 3. Mannitol. 4. Albuterol. 5. Abilify. 6. Symbicort. 7. Desyrel. 8. Solu-Medrol. 9. Levofloxacin. 10. Apresoline. 11. Pepcid. 12. Gabapentin. 13. Xanax. 14. Zofran. 15. Tylenol p.r.n. ALLERGIES None. SOCIAL HISTORY The patient is a smoker. He used to drink alcohol in the past. FAMILY HISTORY Negative for heart disease. REVIEW OF SYSTEMS The review of systems is otherwise negative. PHYSICAL EXAMINATION VITAL SIGNS: Blood pressure 103/73, pulse 100 and irregular. HEENT: The patient is intubated and sedated. 2+ carotid upstrokes. No bruits. LUNGS: Clear. There is right sided chest tube that is in place. ABDOMEN: Soft. No bruits. EXTREMITIES: Without edema. 2+ distal pulses. NEUROLOGIC: Shows right hemiplegia. CARDIOLOGY STUDIES EKG was reviewed and showed normal sinus rhythm. Indeterminate axis and bundle branch block. LABORATORY DATA Hemoglobin 12.7, potassium 4.8, creatinine 1.1. Troponin 9.0, 5.0, 4.1 and 4.8. BNP 3333. DIAGNOSIS 1. Non-ST elevation myocardial infarction. 2. Large left MCA stroke. 3. Pneumothorax. 4. Pulmonary embolism. 5. Cardiomyopathy with moderate left ventricular systolic dysfunction. 6. Right lung mass. DISPOSITION Mr. Cooley suffered acute non-ST elevation myocardial infarction. At this time I recommend to continue medical therapy but unfortunately anticoagulation can not be started due to a large CVA. We will continue ICU care. He is undergoing neurology and neurosurgical evaluation. I will follow him for cardiology during his hospitalization. MD JOSE A Beaulieu/AMADOR /5:10 PM /6:54 PM [email or web address]
[2016-08-16] MEDS: CHLORHEXIDINE 0.12% (ORAL KIT) 15 ML CUP MT SCH (21:28)
[2016-08-16] MEDS: NOREPINEPHRINE-DEXTROSE DRIP 250 ML IV SCH (21:30)
[2016-08-16] MEDS: ARIPiprazole 15 MG TAB PO SCH (21:31)
[2016-08-16] MEDS: traZODone HCL 100 MG TAB PO SCH (21:31)
[2016-08-17] VITALS (20 sets, daily range): BP systolic 94–131; BP diastolic 57–88; PULSE 79–111; RESP 22–27; TEMP 98.8–99.9; O2SAT 94–100
[2016-08-17] MEDS: PROPOFOL 1000 MG/100 ML INJ 100 ML IV SCH ×2 (02:05→06:18)
[2016-08-17] MEDS: NOREPINEPHRINE-DEXTROSE DRIP 250 ML IV SCH ×2 (02:05→06:19)
[2016-08-17] MEDS: CHLORHEXIDINE GLUCONATE 2 % 1 PACK (2 CLOTHS) TOP SCH (02:06)
[2016-08-17] MEDS: methylPREDNISolone SOD SUCC 125 MG/2 ML VIAL IVP SCH ×4 (02:06→22:44)
[2016-08-17] MEDS: RESP: ALBUTEROL 2.5 MG/IPRATROPIUM 0.5 MG NEB (SCH) NEB ×6 (03:17→23:23)
[2016-08-17 04:15] LABS: ALT (GPT) 37 U/L (12-78); ANION GAP 7 MEQ/L (5-15); AST (GOT) 27 U/L (15-37); BLOOD UREA NITROGEN 20 MG/DL (7-18); CHLORIDE 111 MEQ/L (98-107); GLOMERULAR FILTRATION RATE 75 ML/MIN (>89); POTASSIUM 4.8 MEQ/L (3.5-5.1); SODIUM (NA) 144 MEQ/L (136-145)
[2016-08-17] MEDS ORDERED: fentaNYL 2,500 MCG/NS 250 ML IV SCH (04:15)
[2016-08-17 04:17] LABS: ALKALINE PHOSPHATASE 46 U/L (45-117); TOTAL BILIRUBIN ADULT 0.2 MG/DL (0.2-1.0)
[2016-08-17] MEDS: FAMOTIDINE 20 MG/2 ML VIAL IV PUSH SCH ×2 (04:18→16:00)
[2016-08-17 04:52] LABS: AUTOMATED NEUTROPHIL # 21.2 TH/MM3 (1.8-7.7); BASOPHIL # 0.1 TH/MM3 (0-0.2); BASOPHIL % 0.4 % (0.0-2.0); EOSINOPHIL # 0.3 TH/MM3 (0-0.4); EOSINOPHIL % 1.1 % (0.0-4.0); HEMATOCRIT 35.3 % (39.0-51.0); HEMO FLAGS DIFF FINAL; LYMPH % 4.5 % (9.0-44.0); MEAN CELL VOLUME 91.6 FL (80.0-100.0); MEAN CORPUSCULAR HEMOGLOBIN 30.3 PG (27.0-34.0); MEAN CORPUSCULAR HGB CONC 33.1 % (32.0-36.0); MONO % 1.1 % (0.0-8.0); NEUT % 92.9 % (16.0-70.0); PLATELET COUNT 178 TH/MM3 (150-450); RED BLOOD COUNT 3.85 MIL/MM3 (4.50-5.90); RED CELL DISTRIBUTION WIDTH 13.9 % (11.6-17.2); WHITE BLOOD COUNT 22.8 TH/MM3 (4.0-11.0)
[2016-08-17] MEDS: MANNITOL 12.5 GM/50 ML VIAL IV SCH ×3 (05:04→22:00)
[2016-08-17] MEDS: PHENYTOIN INJ 100 MG/2 ML VIAL IV SCH ×3 (05:04→22:42)
[2016-08-17] MEDS: INSULIN ASPART SUPPLEMENTAL SCALE SQ SCH ×4 (06:19→23:46)
[2016-08-17] MEDS: CHLORHEXIDINE 0.12% (ORAL KIT) 15 ML CUP MT SCH ×2 (08:00→22:40)
--- NOTE | 2016-08-17 08:54 | RADRPT ---
EXAM DATE/TIME: 08/17/2016 08:23 [facility] COMPARISON: CT BRAIN W/O CONTRAST, August 16, 2016, 0:56. INDICATIONS : Follow up stroke. RADIATION DOSE: 56.35 CTDIvol (mGy) MEDICAL HISTORY : Cardiovascular disease. Deep venous thrombosis. SURGICAL HISTORY : None. ENCOUNTER: Subsequent ACUITY: 3 days PAIN SCALE: Non-responsive LOCATION: cranial TECHNIQUE: Multiple contiguous axial images were obtained of the head. Using automated exposure control and adj ustment of the mA and/or kV according to patient size, radiation dose was kept as low as reasonably a chievable to obtain optimal diagnostic quality images. FINDINGS: There is evolving cytotoxic edema involving the left MCA territory with hypodensity increasing from t he previous study. There is slight mass effect on the left lateral ventricle, and there is no midline shift. There are no signs of intracranial. No fractures. CONCLUSION: 1. Evolving left MCA infarct. Galindo Vuong MD on August 17, 2016 at 8:51 Board Certified Radiologist. This report was verified electronically.
[2016-08-17] MEDS: SODIUM CHLORIDE 0.9% FLUSH 10 ML FLUSH IV FLUSH SCH ×2 (09:00→21:00)
[2016-08-17] MEDS: BUDESONIDE-FORMOTEROL 160/4.5 MCG INHALER INH SCH ×2 (09:00→21:00)
[2016-08-17] MEDS: GABAPENTIN 100 MG CAP PO SCH ×3 (09:00→17:12)
[2016-08-17] MEDS: TIOTROPIUM BROMIDE 18 MCG INH INH SCH (09:00)
--- NOTE | 2016-08-17 10:48 | HHI.CCPN ---
Subjective Remarks/Hospital Course 08/15: Mr. Cooley is a 50 y/o CM with a PMHx of COPD who continues to smoke and is s/p R lung biopsy secondary to a recently found lung mass presenting with dyspnea. Prior to his biopsy today, he was being treated as an outpatient with a Medrol dose pack with Levaquin for a COPD exacerbation. He endorsed dyspnea on exertion today, but denied any fevers, chest pain, wheezing, cough, or LE edema/tenderness. He has a history of LLE DVT diagnosed in 07/05, but has been off his anticoagulation for approximately 11 days (Previously on Xarelto). He had a port placed 2 days ago and lung biopsy today. He has been short of breath since 1 day prior to the procedure. After his biopsy, he was found to have a small apical pneumothorax on CXR, diaphoretic, and tachypneic with hypoxia of 81 % on room air. He was placed on 4L and improved to 85%. He was then placed on a non-rebreather and transferred to the ICU. On arrival he was tachypneic with oxygen saturation in the upper 80s. CTA showed acute pulmonary embolisms of the BL lower lobes with a small R pneumothorax. Therefore a R sided chest tube was placed and heparin drip without bolus was initiated. The patient has been continued on Levaquin ABX, has been give steroids with multiple breathing treatments, and has been placed on BiPAP. 08/16: Patient was noted to have an elevated troponin and was diagnosed to have a non-ST elevation LA last evening. He was on BiPAP at the time with full facemask. It was noticed that he was not moving the right side of his body when he was turned to administer rectal aspirin and subsequent head CT and CTA revealed significant edema in the left cerebral hemisphere and occluded left MCA with thrombus. Neurology was contacted by Dr. Martínez and due to concern for hemorrhagic transformation heparin was held. Dr. Martínez discussed the case with Dr. Okeefe from interventional radiology who did not feel that the patient was a good candidate for clot retrieval due to high risk for hemorrhagic transformation given the amount of cerebral edema and extent of infarct. Patient was given mannitol. This morning when I evaluated patient was in BiPAP with full facemask with a dense right hemiplegia with some spontaneous movement involving his left upper extremity. He was intubated and placed on mechanical ventilation for airway protection and hyperventilation in view of cerebral edema as well as for borderline respiratory status. Subsequently he underwent MRI brain which showed large left MCA territory infarct with some collateral flow. IVC filter was placed by interventional radiology after discussion with Dr. Murry, his oncologist as patient is now off heparin and is at risk for recurrent PE. 08/17: Remains sedated, orally intubated on mechanical ventilation. On 3% saline overnight. Head CT done this morning shows slight increase in cerebral edema in the area of left MCA territory infarct which appears more hypodense. Remains on Levophed 10mcg/min. Moves left side spontaneously however not following commands. Right hemiplegia persists Objective Vital Signs Date Time Temp Pulse Resp B/P Pulse Ox O2 Delivery O2 Flow Rate FiO2 08/17/16 08:38 100 40 08/17/16 06:00 88 08/17/16 04:00 98.8 27 131/88 122/72 08/16/16 19:00 Mechanical Ventilator 08/16/16 04:00 15.00 Intake and Output 08/16/16 08/16/16 08/17/16 08:00 16:00 00:00 Intake Total 175 ml 211 ml 950 ml Output Total 270 ml 675 ml 600 ml Balance -95 ml -464 ml 350 ml Result Diagram: 08/17/16 0435 08/17/16 0310 Other Results Microbiology Date/Time Procedure Status Source Growth 08/15/16 22:00 Legionella Antigen - Final Complete Urine Random Urine PRESUMPTIVE NEGATIVE FOR LEGIONELLA P... 08/15/16 22:00 Streptococcus pneumoniae Antigen (M - Final Complete Urine Random Urine PRESUMPTIVE NEGATIVE FOR STREPTOCOCCU... Laboratory Tests Test 08/16/16 08/16/16 08/16/16 08/16/16 12:01 14:36 14:40 16:58 Sodium Level 142 MEQ/L 141 MEQ/L Serum Osmolality 311 MOSM/KG 311 MOSM/KG Total Creatine Kinase 190 U/L Creatine Kinase MB 16.9 NG/ML Troponin I 4.84 NG/ML 5.70 NG/ML Blood Gas Puncture Site ART LINE Blood Gas Patient Temperature 98.6 Blood Gas HCO3 25 mmol/L Blood Gas Base Excess 1.0 mmol/L Blood Gas Oxygen Saturation 96 % Arterial Blood pH 7.40 Arterial Blood Partial 42 mmHg Pressure CO2 Arterial Blood Partial 138 mmHg Pressure O2 Arterial Blood Oxygen Content 17.3 Vol % Arterial Blood 1.3 % Carboxyhemoglobin Arterial Blood Methemoglobin 1.3 % Blood Gas Hemoglobin 12.6 G/DL Oxygen Delivery Device VENTILATOR Blood Gas Ventilator Setting A/C 26/600/5 PEEP Blood Gas Inspired Oxygen 50 % Lactic Acid Level 2.7 mmol/L Triglycerides Level 140 MG/DL Cholesterol Level 165 MG/DL LDL Cholesterol 100 MG/DL HDL Cholesterol 37.0 MG/DL Cholesterol/HDL Ratio 4.45 RATIO Phenytoin (Dilantin) Level 14.0 MCG/ML Test 08/16/16 08/17/16 08/17/16 21:00 03:10 04:35 Serum Osmolality 317 MOSM/KG 312 MOSM/KG Lactic Acid Level 1.8 mmol/L Sodium Level 143 MEQ/L 144 MEQ/L Potassium Level 4.8 MEQ/L Chloride Level 111 MEQ/L Carbon Dioxide Level 26.0 MEQ/L Anion Gap 7 MEQ/L Blood Urea Nitrogen 20 MG/DL Creatinine 1.05 MG/DL Estimat Glomerular Filtration 75 ML/MIN Rate Random Glucose 178 MG/DL Calcium Level 8.2 MG/DL Total Bilirubin 0.2 MG/DL Aspartate Amino Transf 27 U/L (AST/SGOT) Alanine Aminotransferase 37 U/L (ALT/SGPT) Alkaline Phosphatase 46 U/L Total Protein 5.7 GM/DL Albumin 2.6 GM/DL White Blood Count 22.8 TH/MM3 Red Blood Count 3.85 MIL/MM3 Hemoglobin 11.7 GM/DL Hematocrit 35.3 % Mean Corpuscular Volume 91.6 FL Mean Corpuscular Hemoglobin 30.3 PG Mean Corpuscular Hemoglobin 33.1 % Concent Red Cell Distribution Width 13.9 % Platelet Count 178 TH/MM3 Mean Platelet Volume 8.5 FL Neutrophils (%) (Auto) 92.9 % Lymphocytes (%) (Auto) 4.5 % Monocytes (%) (Auto) 1.1 % Eosinophils (%) (Auto) 1.1 % Basophils (%) (Auto) 0.4 % Neutrophils # (Auto) 21.2 TH/MM3 Lymphocytes # (Auto) 1.0 TH/MM3 Monocytes # (Auto) 0.3 TH/MM3 Eosinophils # (Auto) 0.3 TH/MM3 Basophils # (Auto) 0.1 TH/MM3 CBC Comment DIFF FINAL Differential Comment Imaging Last [address] 08/17/16 0800 Signed Impressions: Service Date/Time: Wednesday, August 17, 2016 08:23 - CONCLUSION: 1. Evolving left MCA infarct. Galindo Vuong MD Head CTA 08/16/16 0207 Signed Impressions: Service Date/Time: Tuesday, August 16, 2016 04:10 - CONCLUSION: Thrombosed left middle cerebral artery with associated large subacute cerebral infarct. Neftaly Holden MD Neck CTA 08/16/16 0000 Signed Impressions: Service Date/Time: Tuesday, August 16, 2016 04:10 - CONCLUSION: 1. Extracranial carotids are normal. Also normal vertebral arteries. 2. Known malignant right upper lobe mass. Mediastinal and hilar lymphadenopathy seen in the upper chest. Neftaly Holden MD IVC Filter Placement X-Ray 08/16/16 0000 Signed Impressions: Service Date/Time: Tuesday, August 16, 2016 10:30 - CONCLUSION: Uncomplicated inferior vena cava filter placement as above. Israel Okeefe MD Head Magnetic Resonance Angiography 08/16/16 0000 Signed Impressions: Service Date/Time: Tuesday, August 16, 2016 10:27 - CONCLUSION: Markedly abnormal cerebral perfusion corresponding to the large MCA occlusion on the left. Harshad Campbell MD FACR Head CT 08/16/16 0000 Signed Impressions: Service Date/Time: Tuesday, August 16, 2016 00:56 - CONCLUSION: Large left sided cerebral edema as above, appearance most typical of a subacute middle cerebral artery distribution infarct. No bleed or definite mass. Neftaly Holden MD Chest X-Ray 08/16/16 0000 Signed Impressions: Service Date/Time: Tuesday, August 16, 2016 15:33 - CONCLUSION: 1. Uncomplicated line placement. No evidence of pneumothorax. 2. Decreasing right apical pneumothorax Israel Okeefe MD Chest X-Ray 08/16/16 0000 Signed Impressions: Service Date/Time: Tuesday, August 16, 2016 08:15 - CONCLUSION: 1. Interval intubation. 2. Placement of nasogastric tube with the tip in the distal esophagus. This could be advanced at least 7 cm. 3. Mild interval increase in size the small right apical pneumothorax. 4. Increasing opacity in the right lung base most consistent with infiltrate. Barrett Holman MD Brain MRI 08/16/16 0000 Signed Impressions: Service Date/Time: Tuesday, August 16, 2016 10:27 - CONCLUSION: Large area of infarction involving the left Sylvian region. There is occlusion of the distal left MCA. There is some collateralization distally. Harshad Campbell MD FACR Chest X-Ray 08/15/16 1300 Signed Impressions: Service Date/Time: July 12:55 - CONCLUSION: Stable tiny right apical pneumothorax. Neftaly Rodriguez MD Chest X-Ray 08/15/16 1200 Signed Impressions: Service Date/Time: July 11:51 - CONCLUSION: There is a new tiny apical right pneumothorax. Neftaly Rodriguez MD Last 72 hours Impressions Chest X-Ray 08/15/16 1300 Signed Impressions: Service Date/Time: July 12:55 - CONCLUSION: Stable tiny right apical pneumothorax. Neftaly Rodriguez MD Chest X-Ray 08/15/16 1200 Signed Impressions: Service Date/Time: July 11:51 - CONCLUSION: There is a new tiny apical right pneumothorax. Neftaly Rodriguez MD Chest X-Ray 08/15/16 1030 Signed Impressions: Service Date/Time: July 10:20 - CONCLUSION: No pneumothorax following recent right lung biopsy. Neftaly Rodriguez MD Lung Biopsy CT 08/15/16 0000 Signed Impressions: Service Date/Time: July 08:22 - CONCLUSION: Uncomplicated CT guided biopsy of the right upper lobe lung mass. Neftaly Rodriguez MD Chest X-Ray 08/15/16 0000 Signed Impressions: Service Date/Time: July 07:12 - CONCLUSION: 1. No pneumothorax is visualized. Right chest wall [id number] distal tip is at the cavoatrial junction. 2. Right upper lobe pulmonary mass is again visualized. Neftaly Rodriguez MD CT Angiography 08/15/16 0000 Signed Impressions: Service Date/Time: July 13:22 - CONCLUSION: 1. There is acute appearing PE in the right lower lobe segmental and left lower lobe subsegmental pulmonary arteries. These PE are new since the prior CT from 07/09/2016. 2. Small right pneumothorax. 3. Right upper lobe pulmonary mass remains present and measures 4.9 cm. There is associated mediastinal, right hilar, and right supraclavicular lymphadenopathy suspicious for lymphatic spread of disease. Neftaly Rodriguez MD Objective Remarks HEENT/ Neuro: Sedated, orally intubated, Pallor present, no icterus, tongue/ mucosa moist. Pupils 3 mm bilaterally reacting actively to light. Opens eyes occasionally on lightening sedation. Dense right hemiplegia. Localizes with left upper and lower extremity. Neck: No JVD Chest/Pulm: on mech vent, good air entry bilaterally, minimal wheezing, no crackles. Right sided chest tube in place, no air leak noted. Port noted over right chest wall. CVS: S1-S2 regular, no murmur GI/abdomen: soft, nontender, bowel sounds sluggish Extremities: warm bilaterally, no edema Urinary Catheter: Yes Assessment to: Continue Vascular Central Line Catheter: Yes Assessment to: Continue Date of Insertion: Aug 16, 2016 Line: Central Venous Catheter Side: Left Location: Jugular A/P Assessment and Plan Neuro: Left MCA territory ischemic infarct with cerebral edema Encephalopathy Bipolar Disorder with depression/anxiety Sedation with propofol/ fentanyl, daily sedation vacation. Neurochecks per protocol. Neurology and neurosurgery consulted. On mannitol and 3% saline. Plan to taper off mannitol after discussion with neurosurgery. Continue antiplatelet therapy with aspirin if okay with neurosurgery. Repeat neuro imaging per neurology/neurosurgery. Monitor neuro status with neuro checks per protocol CV: Hypotension Non-ST elevation LA History of HTN, CAD with LA s/p stent placement(2002) 2-D echo with no evidence of R heart strain. Difficult study due to tachycardia. EF 35-40%. Moderate mid to distal inferior hypokinesis and distal lateral hypokinesis. Trace tricuspid regurgitation. PA peak pressure 53 mmHg. Elevated cardiac enzymes/ EKG consistent with non-ST elevation LA. On aspirin-currently on hold till cleared by neurosurgery. Cardiology following Continue Levophed for pressor support. Hold all antihypertensives. Gentle hydration with NS @ 50cc/hr Pulm: Right pneumothorax BL PEs on CTA COPD Exacerbation R Lung mass s/p biopsy R sided chest tube to suction Continue mechanical ventilation. Vent bundle, bronchodilators Decrease Solumedrol to 60mg Q8H Right sided chest tube in place, no air leak noted. End-tidal CO2 monitoring, attempt keeping PCO2 30-35mm Hg Renal/: NS to 50 ml/hr as patient with decreased EF Strict intake output, monitor and replete electrolites, follow BUN/ creatinine. ID: Continue with empiric abx (Levaquin). Follow-up sputum cultures and blood cultures Legionella and Streptococcus urinary antigens negative. Lactic acid normal Heme-onc: DVT/PE/right apical lung mass highly suspicious for malignancy Off anticoagulation with heparin due to large stroke with risk for hemorrhagic transformation. IVC filter placed for/28. Continue aspirin if okay with neurosurgery. We will discuss starting DVT prophylaxis with subcutaneous heparin with neurology. Monitor CBC. Being followed by Dr. Murry from Oncology Endocrine: Hx of DM per chart review, not on medications at home SSI per protocol GI: Start tube feeds with Glucerna and advance to goal as tolerated. Prophylaxis with Pepcid BID DVT prophylaxis: SCDs. Subcutaneous heparin after clearance by neurology/ neurosurgery Case discussed with Dr. Jean from neurology/neurosurgery/oncology-Dr. Murry on Long discussion with patient's family morning of 08/16 regarding current clinical status and plan of care and they voiced understanding and were agreeable. Also discussed palliative care consult which they are interested in as they did not want long-term mechanical ventilation if patient was not going to do well. Condition critical. Time spent on critical care excluding procedures 40 minutes Joseph Harrell MD Aug 17, 2016 10:48
[2016-08-17] MEDS: SODIUM CHLOR 0.9% 1000 ML INJ 1,000 ML IV SCH (11:30)
--- NOTE | 2016-08-17 11:32 | PD.ONC.PN ---
Subjective Subjective Remarks Afebrile overnight. Patient intubated, on mechanical ventilation. Family at bedside waiting to speak with neurosurgery. Objective Data Date Time Temp Pulse Resp B/P Pulse Ox O2 Delivery O2 Flow Rate FiO2 08/17/16 10:00 81 08/17/16 08:38 100 40 08/17/16 08:15 100 100 08/17/16 08:00 86 08/17/16 08:00 100 Mechanical Ventilator 40 08/17/16 08:00 98.8 86 27 105/72 100 101/65 08/17/16 06:00 88 08/17/16 04:08 99 40 08/17/16 04:00 106 08/17/16 04:00 98.8 106 27 131/88 100 122/72 08/17/16 02:00 111 08/17/16 01:06 99 50 08/17/16 00:00 90 08/17/16 00:00 99.9 99 26 101/67 100 94/57 08/16/16 22:06 100 50 08/16/16 22:00 90 08/16/16 20:00 90 08/16/16 20:00 98.6 90 26 111/77 100 98/59 08/16/16 19:36 100 50 08/16/16 19:00 100 Mechanical Ventilator 50 08/16/16 18:00 97 107/84 113/68 08/16/16 18:00 97 08/16/16 17:06 100 50 08/16/16 17:00 93 104/71 98/58 08/16/16 16:00 98.8 103 26 103/73 99 08/16/16 16:00 103 08/16/16 14:00 103 08/16/16 12:26 98 50 08/16/16 12:00 102 08/16/16 12:00 98.9 95 26 95/61 100 08/17/16 08/17/16 08/17/16 07:00 15:00 23:00 Intake Total 1124 ml Output Total 450 ml Balance 674 ml Result Diagram: 08/17/16 0435 08/17/16 0310 Laboratory Results Laboratory Tests Test 08/16/16 08/16/16 08/16/16 08/16/16 12:01 14:36 14:40 16:58 Sodium Level 142 MEQ/L 141 MEQ/L Serum Osmolality 311 MOSM/KG 311 MOSM/KG Total Creatine Kinase 190 U/L Creatine Kinase MB 16.9 NG/ML Troponin I 4.84 NG/ML 5.70 NG/ML Blood Gas Puncture Site ART LINE Blood Gas Patient Temperature 98.6 Blood Gas HCO3 25 mmol/L Blood Gas Base Excess 1.0 mmol/L Blood Gas Oxygen Saturation 96 % Arterial Blood pH 7.40 Arterial Blood Partial 42 mmHg Pressure CO2 Arterial Blood Partial 138 mmHg Pressure O2 Arterial Blood Oxygen Content 17.3 Vol % Arterial Blood 1.3 % Carboxyhemoglobin Arterial Blood Methemoglobin 1.3 % Blood Gas Hemoglobin 12.6 G/DL Oxygen Delivery Device VENTILATOR Blood Gas Ventilator Setting A/C 26/600/5 PEEP Blood Gas Inspired Oxygen 50 % Lactic Acid Level 2.7 mmol/L Triglycerides Level 140 MG/DL Cholesterol Level 165 MG/DL LDL Cholesterol 100 MG/DL HDL Cholesterol 37.0 MG/DL Cholesterol/HDL Ratio 4.45 RATIO Phenytoin (Dilantin) Level 14.0 MCG/ML Test 08/16/16 08/17/16 08/17/16 08/17/16 21:00 03:10 04:35 10:32 Serum Osmolality 317 MOSM/KG 312 MOSM/KG 314 MOSM/KG Lactic Acid Level 1.8 mmol/L Sodium Level 143 MEQ/L 144 MEQ/L Potassium Level 4.8 MEQ/L Chloride Level 111 MEQ/L Carbon Dioxide Level 26.0 MEQ/L Anion Gap 7 MEQ/L Blood Urea Nitrogen 20 MG/DL Creatinine 1.05 MG/DL Estimat Glomerular Filtration 75 ML/MIN Rate Random Glucose 178 MG/DL Calcium Level 8.2 MG/DL Total Bilirubin 0.2 MG/DL Aspartate Amino Transf 27 U/L (AST/SGOT) Alanine Aminotransferase 37 U/L (ALT/SGPT) Alkaline Phosphatase 46 U/L Total Protein 5.7 GM/DL Albumin 2.6 GM/DL White Blood Count 22.8 TH/MM3 Red Blood Count 3.85 MIL/MM3 Hemoglobin 11.7 GM/DL Hematocrit 35.3 % Mean Corpuscular Volume 91.6 FL Mean Corpuscular Hemoglobin 30.3 PG Mean Corpuscular Hemoglobin 33.1 % Concent Red Cell Distribution Width 13.9 % Platelet Count 178 TH/MM3 Mean Platelet Volume 8.5 FL Neutrophils (%) (Auto) 92.9 % Lymphocytes (%) (Auto) 4.5 % Monocytes (%) (Auto) 1.1 % Eosinophils (%) (Auto) 1.1 % Basophils (%) (Auto) 0.4 % Neutrophils # (Auto) 21.2 TH/MM3 Lymphocytes # (Auto) 1.0 TH/MM3 Monocytes # (Auto) 0.3 TH/MM3 Eosinophils # (Auto) 0.3 TH/MM3 Basophils # (Auto) 0.1 TH/MM3 CBC Comment DIFF FINAL Differential Comment Culture Results Microbiology Date/Time Procedure Status Source Growth 08/15/16 22:00 Legionella Antigen - Final Complete Urine Random Urine PRESUMPTIVE NEGATIVE FOR LEGIONELLA P... 08/15/16 22:00 Streptococcus pneumoniae Antigen (M - Final Complete Urine Random Urine PRESUMPTIVE NEGATIVE FOR STREPTOCOCCU... 08/16/16 15:01 Aerobic Blood Culture - Preliminary Resulted Blood Peripheral NO GROWTH IN 1 DAY 08/16/16 15:01 Anaerobic Blood Culture - Preliminary Resulted Blood Peripheral NO GROWTH IN 1 DAY 08/16/16 15:45 Aerobic Blood Culture - Preliminary Resulted Blood Peripheral NO GROWTH IN 1 DAY 08/16/16 15:45 Anaerobic Blood Culture - Preliminary Resulted Blood Peripheral NO GROWTH IN 1 DAY 08/16/16 16:55 Gram Stain - Final Resulted Sputum Endotracheal 08/16/16 16:55 Sputum Culture Resulted Sputum Endotracheal Pending Imaging Studies Last [address] 08/17/16 0800 Signed Impressions: Service Date/Time: Wednesday, August 17, 2016 08:23 - CONCLUSION: 1. Evolving left MCA infarct. Galindo Vuong MD Administered Medications Medications (Trade) Dose Ordered Sig/Beto Route PRN Reason Start Time Stop Time Status Last Admin Dose Admin Sodium Chloride (NS Flush) 5 ml Q21D IV FLUSH 08/15/16 07:15 08/16/16 08:39 Sodium Chloride (NS Flush) 2 ml BID IV FLUSH 08/15/16 21:00 08/17/16 09:00 Aripiprazole (Abilify) 15 mg HS PO 08/15/16 21:00 08/16/16 21:31 Gabapentin (Neurontin) 100 mg TID PO 08/15/16 13:00 08/17/16 09:00 Trazodone HCl (Desyrel) 100 mg HS PO 08/15/16 21:00 08/16/16 21:31 Miscellaneous Information 1 Q361D XX 4/27/17 13:15 08/15/16 19:00 Chlorhexidine Gluconate 3 pack 3 pack Taper DAILY@04 TOP 08/16/16 04:00 08/12/17 03:59 08/17/16 02:06 Heparin Sodium/ Dextrose 250 ml @ 0 mls/hr TITRATE IV 08/15/16 13:15 Hold 08/15/16 15:22 Levofloxacin/ Dextrose (Levaquin 750 Mg Premix Inj) 150 ml @ 100 mls/hr Q24H IV 08/15/16 16:00 08/16/16 16:20 Hydralazine HCl (Apresoline Inj) 10 mg Q2HR PRN IV PUSH BP >150/90 08/15/16 16:00 08/16/16 04:36 Famotidine (Pepcid Inj) 20 mg Q12H IV PUSH 08/15/16 16:00 08/17/16 04:18 Phenytoin Sodium (Dilantin Inj) 100 mg Q8HR IV 08/16/16 14:00 08/17/16 05:04 Chlorhexidine Gluconate 15 ml 15 ml BID@08,20 MT 08/16/16 20:00 08/17/16 08:00 Propofol 100 ml @ 0 mls/hr TITRATE IV 08/16/16 15:30 08/17/16 06:18 Norepinephrine Bitartrate 250 ml @ 0 mls/hr TITRATE IV 08/16/16 15:30 08/17/16 06:19 Sodium Chloride (NS 1000 ml Inj) 1,000 ml @ 50 mls/hr Q20H IV 08/16/16 15:30 08/16/16 16:20 Mannitol (Mannitol Inj) 12.5 gm Q8HR IV 08/16/16 22:00 08/17/16 05:04 Objective Remarks GENERAL: Middle aged male, supine in bed, intubated. SKIN: Warm and dry. HEAD: Normocephalic. EYES: No injection or drainage. NECK: Supple, trachea midline. CARDIOVASCULAR: Regular rate and rhythm RESPIRATORY: anterior jama clear. on mechanical ventilation. GASTROINTESTINAL: Abdomen soft, non-tender, nondistended. EXTREMITIES: No cyanosis NEUROLOGICAL: intubated, sedated. Assessment/Plan Problem List: (1) Lung cancer Status: Acute Plan: 08/17: await pathology. -- Right upper lobe lung mass measured 4.4 cm with mediastinal, right supraclavicular and right hilar adenopathy. --went to [facility] and had PET scan done which did not show any other distant metastasis. --Clinically this is suspicious for primary lung cancer --> suspect non-small- cell lung cancer. Based on the CT scan finding he is clinically stage IIIA. --biopsy on 08/15--> pathology is pending. (2) Pulmonary embolism Status: Acute Plan: 08/17: has IVC filter. CCM to d/w Neurosurgery about starting on heparin prophylaxis. --s/p IVC filter placement (3) Respiratory failure Status: Acute Plan: --on mechanical ventilation --developed a small pneumothorax after the biopsy. ++bilateral subsegmental pulmonary embolism. ++left lower extremity deep venous thrombosis dx more than a month ago --was started on ac then found to have massive stroke with cerebral edema Assessment 50y/o male with lung mass admitted with respiratory failure. History: (from original consult): had a port placement on Friday and reportedly doing well, yesterday when the he went for biopsy of lung mass. --was having shortness of breath after the biopsy and he was found to have pneumothorax and he developed worsening respiratory distress. --CT angiogram was done which showed bilateral subsegmental pulmonary embolism. --was admitted to the ICU. A chest tube was placed, reportedly in the evening he developed right-sided paralysis and was found to have a major stroke in the left hemisphere. h/o COPD, LLE DVT, osteopenia Attending Statement chrat reviewed. Pt is on vent IVC filter. path is pending PTX, PE, CVA, [place] d/w family and Mera Pablo Aug 17, 2016 11:32 Sushant Faith MD Aug 17, 2016 19:29
[2016-08-17] MEDS: HEPARIN SODIUM - SQ 10,000 UNITS/ML VIAL SQ SCH ×2 (12:15→22:41)
[2016-08-17] MEDS: ASPIRIN 81 MG CHEW TAB CHEW SCH (13:03)
--- NOTE | 2016-08-17 14:07 | PD.CARD.PN ---
Subjective Subjective Remarks Intubated, sedated, on pressors Objective Medications Current Medications Medications (Trade) Dose Ordered Sig/Beto Route Start Time Stop Time Status Last Admin (NS Flush) 2 ml UNSCH PRN IV FLUSH 08/15/16 07:15 (NS Flush) 2 ml UNSCH PRN IV FLUSH 08/15/16 07:15 (NS Flush) 5 ml Q21D IV FLUSH 08/15/16 07:15 08/16/16 08:39 (Heparin Central Flush) 500 units Q21D IV FLUSH 08/15/16 07:15 (NS Flush) 5 ml UNSCH PRN IV FLUSH 08/15/16 07:15 (Heparin Central Flush) 250 units UNSCH PRN IV FLUSH 08/15/16 07:15 (NS Flush) 2 ml BID IV FLUSH 08/15/16 21:00 08/17/16 09:00 (NS Flush) 2 ml UNSCH PRN IV FLUSH 08/15/16 12:15 (Xanax) 0.25 mg Q8H PRN PO 08/15/16 12:15 (Abilify) 15 mg HS PO 08/15/16 21:00 08/16/16 21:31 (Symbicort 160-4.5 Inh) 2 puff Q12HR INH 08/15/16 21:00 (Neurontin) 100 mg TID PO 08/15/16 13:00 08/17/16 13:02 ([place] 10-325 Mg) 1 tab Q4H PRN PO 08/15/16 12:15 (Spiriva Inh) 18 mcg DAILY INH 08/16/16 09:00 (Desyrel) 100 mg HS PO 08/15/16 21:00 08/16/16 21:31 (PROzac) 60 mg DAILY PO 08/16/16 09:00 Hold (Tylenol) 650 mg Q4H PRN PO 08/15/16 12:15 (Zofran Inj) 4 mg Q6H PRN IV 08/15/16 12:15 (Colace) 100 mg BID PRN PO 08/15/16 12:15 (Mag-Al Plus Susp Liq) 30 ml Q6H PRN PO 08/15/16 12:15 (Tums Chew) 1,000 mg TID PRN CHEW 08/15/16 12:15 (Vasotec Inj) 1.25 mg Q6H PRN IV 08/15/16 12:15 (Apresoline Inj) 10 mg Q6H PRN IV 08/15/16 12:15 (Catapres) 0.1 mg Q6H PRN PO 08/15/16 12:15 Miscellaneous Information 1 Q361D XX 08/15/16 13:15 08/15/16 19:00 (Chlorhexidine 2% Cloth) 3 pack Taper DAILY@04 TOP 08/16/16 04:00 08/12/17 03:59 08/17/16 02:06 (Chlorhexidine 2% Cloth) 3 pack UNSCH PRN TOP 08/15/16 13:15 (Heparin Inj) 5,000 units UNSCH PRN IV 08/15/16 19:15 Hold Heparin Sodium (Porcine) 2500 units 2,500 units UNSCH PRN IV 08/15/16 19:15 Hold Heparin Sodium/ Dextrose 250 ml @ 0 mls/hr TITRATE IV 08/15/16 13:15 Hold 08/15/16 15:22 (Levaquin 750 Mg Premix Inj) 150 ml @ 100 mls/hr Q24H IV 08/15/16 16:00 08/16/16 16:20 (Apresoline Inj) 10 mg Q2HR PRN IV PUSH 08/15/16 16:00 08/16/16 04:36 (Pepcid Inj) 20 mg Q12H IV PUSH 08/15/16 16:00 08/17/16 04:18 (D50w (Vial) Inj) 25 ml UNSCH PRN IV PUSH 08/15/16 17:30 (Glucagon Inj) 1 mg UNSCH PRN OTHER 08/15/16 17:30 (Dilantin Inj) 100 mg Q8HR IV 08/16/16 14:00 08/17/16 13:01 Chlorhexidine Gluconate 15 ml 15 ml BID@08,20 MT 08/16/16 20:00 08/17/16 08:00 Propofol 100 ml @ 0 mls/hr TITRATE IV 08/16/16 15:30 08/17/16 06:18 (Levophed-Dextrose Drip) 250 ml @ 0 mls/hr TITRATE IV 4/28/17 15:30 08/17/16 06:19 Terbutaline Sulfate 1 mg 1 mg UNSCH PRN SQ 08/16/16 15:15 (NS 1000 ml Inj) 1,000 ml @ 50 mls/hr Q20H IV 08/16/16 15:30 08/17/16 11:30 Mannitol 12.5 gm 12.5 gm Q8HR IV 08/16/16 22:00 08/17/16 13:01 (fentaNYL DRIP) 250 ml @ 0 mls/hr TITRATE IV 08/17/16 10:45 (NovoLOG SUPPLEMENTAL SCALE) 1 Q6HR SQ 08/17/16 12:00 (SoluMEDROL INJ) 60 mg Q8HR IVP 08/17/16 14:00 08/17/16 13:01 (Aspirin Chew) 162 mg DAILY CHEW 08/17/16 12:15 08/17/16 13:03 (Heparin Inj) 5,000 units Q12HR SQ 08/17/16 12:15 08/17/16 12:15 Vital Signs / I&O Vital Signs Date Time Temp Pulse Resp B/P Pulse Ox O2 Delivery O2 Flow Rate FiO2 08/17/16 11:49 100 40 08/17/16 11:49 100 40 08/17/16 10:00 81 08/17/16 08:38 100 40 08/17/16 08:15 100 100 08/17/16 08:00 86 08/17/16 08:00 100 Mechanical Ventilator 40 08/17/16 08:00 98.8 86 27 105/72 100 101/65 08/17/16 06:00 88 08/17/16 04:08 99 40 08/17/16 04:00 106 08/17/16 04:00 98.8 106 27 131/88 100 122/72 08/17/16 02:00 111 08/17/16 01:06 99 50 08/17/16 00:00 90 08/17/16 00:00 99.9 99 26 101/67 100 94/57 08/16/16 22:06 100 50 08/16/16 22:00 90 08/16/16 20:00 90 08/16/16 20:00 98.6 90 26 111/77 100 98/59 08/16/16 19:36 100 50 08/16/16 19:00 100 Mechanical Ventilator 50 08/16/16 18:00 97 107/84 113/68 08/16/16 18:00 97 08/16/16 17:06 100 50 08/16/16 17:00 93 104/71 98/58 08/16/16 16:00 98.8 103 26 103/73 99 08/16/16 16:00 103 I/O 08/16/16 08/16/16 08/16/16 08/17/16 08/17/16 08/17/16 07:00 15:00 23:00 07:00 15:00 23:00 Intake Total 175 ml 211 ml 950 ml 1124 ml Output Total 270 ml 675 ml 600 ml 450 ml Balance -95 ml -464 ml 350 ml 674 ml Intake IV Total 175 ml 211 ml 950 ml 1124 ml Output Urine Total 250 ml 675 ml 550 ml 450 ml Chest Tube Drainage Total 20 ml 50 ml 0 ml # Bowel Movements 0 0 0 Physical Exam GENERAL: Intubated, sedated SKIN: Warm and dry. HEAD: Normocephalic. EYES: No scleral icterus. No injection or drainage. NECK: Supple, trachea midline. No JVD or lymphadenopathy. CARDIOVASCULAR: Regular rate and rhythm without murmurs, gallops, or rubs. RESPIRATORY: Breath sounds equal bilaterally. No accessory muscle use. GASTROINTESTINAL: Abdomen soft, non-tender, nondistended. MUSCULOSKELETAL: No cyanosis, or edema. Laboratory Laboratory Tests Test 08/16/16 08/16/16 08/16/16 08/16/16 14:36 14:40 16:58 21:00 Total Creatine Kinase 190 U/L Creatine Kinase MB 16.9 NG/ML Troponin I 4.84 NG/ML 5.70 NG/ML Blood Gas Puncture Site ART LINE Blood Gas Patient Temperature 98.6 Blood Gas HCO3 25 mmol/L Blood Gas Base Excess 1.0 mmol/L Blood Gas Oxygen Saturation 96 % Arterial Blood pH 7.40 Arterial Blood Partial 42 mmHg Pressure CO2 Arterial Blood Partial 138 mmHg Pressure O2 Arterial Blood Oxygen Content 17.3 Vol % Arterial Blood 1.3 % Carboxyhemoglobin Arterial Blood Methemoglobin 1.3 % Blood Gas Hemoglobin 12.6 G/DL Oxygen Delivery Device VENTILATOR Blood Gas Ventilator Setting A/C 26/600/5 PEEP Blood Gas Inspired Oxygen 50 % Sodium Level 141 MEQ/L 143 MEQ/L Serum Osmolality 311 MOSM/KG 317 MOSM/KG Lactic Acid Level 2.7 mmol/L 1.8 mmol/L Triglycerides Level 140 MG/DL Cholesterol Level 165 MG/DL LDL Cholesterol 100 MG/DL HDL Cholesterol 37.0 MG/DL Cholesterol/HDL Ratio 4.45 RATIO Phenytoin (Dilantin) Level 14.0 MCG/ML Test 08/17/16 08/17/16 08/17/16 03:10 04:35 10:32 Sodium Level 144 MEQ/L Potassium Level 4.8 MEQ/L Chloride Level 111 MEQ/L Carbon Dioxide Level 26.0 MEQ/L Anion Gap 7 MEQ/L Blood Urea Nitrogen 20 MG/DL Creatinine 1.05 MG/DL Estimat Glomerular Filtration 75 ML/MIN Rate Random Glucose 178 MG/DL Serum Osmolality 312 MOSM/KG 314 MOSM/KG Calcium Level 8.2 MG/DL Total Bilirubin 0.2 MG/DL Aspartate Amino Transf 27 U/L (AST/SGOT) Alanine Aminotransferase 37 U/L (ALT/SGPT) Alkaline Phosphatase 46 U/L Total Protein 5.7 GM/DL Albumin 2.6 GM/DL White Blood Count 22.8 TH/MM3 Red Blood Count 3.85 MIL/MM3 Hemoglobin 11.7 GM/DL Hematocrit 35.3 % Mean Corpuscular Volume 91.6 FL Mean Corpuscular Hemoglobin 30.3 PG Mean Corpuscular Hemoglobin 33.1 % Concent Red Cell Distribution Width 13.9 % Platelet Count 178 TH/MM3 Mean Platelet Volume 8.5 FL Neutrophils (%) (Auto) 92.9 % Lymphocytes (%) (Auto) 4.5 % Monocytes (%) (Auto) 1.1 % Eosinophils (%) (Auto) 1.1 % Basophils (%) (Auto) 0.4 % Neutrophils # (Auto) 21.2 TH/MM3 Lymphocytes # (Auto) 1.0 TH/MM3 Monocytes # (Auto) 0.3 TH/MM3 Eosinophils # (Auto) 0.3 TH/MM3 Basophils # (Auto) 0.1 TH/MM3 CBC Comment DIFF FINAL Differential Comment Imaging Last Impressions Head CT 08/17/16 0800 Signed Impressions: Service Date/Time: Wednesday, August 17, 2016 08:23 - CONCLUSION: 1. Evolving left MCA infarct. Galindo Vuong MD Head CTA 08/16/16 0207 Signed Impressions: Service Date/Time: Tuesday, August 16, 2016 04:10 - CONCLUSION: Thrombosed left middle cerebral artery with associated large subacute cerebral infarct. Neftaly Holden MD Neck CTA 08/16/16 Signed Impressions: Service Date/Time: Tuesday, August 16, 2016 04:10 - CONCLUSION: 1. Extracranial carotids are normal. Also normal vertebral arteries. 2. Known malignant right upper lobe mass. Mediastinal and hilar lymphadenopathy seen in the upper chest. Neftaly Holden MD IVC Filter Placement X-Ray 08/16/16 Signed Impressions: Service Date/Time: Tuesday, August 16, 2016 10:30 - CONCLUSION: Uncomplicated inferior vena cava filter placement as above. Israel Okeefe MD Head Magnetic Resonance Angiography 08/16/16 Signed Impressions: Service Date/Time: Tuesday, August 16, 2016 10:27 - CONCLUSION: Markedly abnormal cerebral perfusion corresponding to the large MCA occlusion on the left. Harshad Campbell MD FACR Chest X-Ray 08/16/16 Signed Impressions: Service Date/Time: Tuesday, August 16, 2016 15:33 - CONCLUSION: 1. Uncomplicated line placement. No evidence of pneumothorax. 2. Decreasing right apical pneumothorax Israel Okeefe MD Brain MRI 08/16/16 Signed Impressions: Service Date/Time: Tuesday, August 16, 2016 10:27 - CONCLUSION: Large area of infarction involving the left Sylvian region. There is occlusion of the distal left MCA. There is some collateralization distally. Harshad Campbell MD FACR Lung Biopsy CT 08/15/16 Signed Impressions: Service Date/Time: July 08:22 - CONCLUSION: Uncomplicated CT guided biopsy of the right upper lobe lung mass. Neftaly Rodriguez MD CT Angiography 08/15/16 0000 Signed Impressions: Service Date/Time: July 13:22 - CONCLUSION: 1. There is acute appearing PE in the right lower lobe segmental and left lower lobe subsegmental pulmonary arteries. These PE are new since the prior CT from 07/09/2016. 2. Small right pneumothorax. 3. Right upper lobe pulmonary mass remains present and measures 4.9 cm. There is associated mediastinal, right hilar, and right supraclavicular lymphadenopathy suspicious for lymphatic spread of disease. Neftaly Rdoriguez MD Assessment and Plan Problem List: (1) Non-STEMI (non-ST elevated myocardial infarction) (2) Stroke (3) Pneumothorax (4) Pulmonary embolism (5) Cardiomyopathy (6) Lung mass Assessment and Plan Continue ICU care. Continue pressors. Neuro and NS eval. Start ASA. Full anticoagulation contraindicated. Wean vent as tolerated. D/w pt's family. Varghese May MD Aug 17, 2016 14:07
[2016-08-17] MEDS: LEVOFLOXACIN 750 MG PREMIX INJ 150 ML IV SCH (16:00)
--- NOTE | 2016-08-17 16:41 | HHI.PR ---
Subjective Subjective Comments No acute events reported No sz activity Active Medications Current Medications Medications (Trade) Dose Ordered Sig/Beto Route Start Time Stop Time Status Last Admin (NS Flush) 2 ml UNSCH PRN IV FLUSH 08/15/16 07:15 (NS Flush) 2 ml UNSCH PRN IV FLUSH 08/15/16 07:15 (NS Flush) 5 ml Q21D IV FLUSH 08/15/16 07:15 08/16/16 08:39 (Heparin Central Flush) 500 units Q21D IV FLUSH 08/15/16 07:15 (NS Flush) 5 ml UNSCH PRN IV FLUSH 08/15/16 07:15 (Heparin Central Flush) 250 units UNSCH PRN IV FLUSH 08/15/16 07:15 (NS Flush) 2 ml BID IV FLUSH 08/15/16 21:00 08/17/16 09:00 (NS Flush) 2 ml UNSCH PRN IV FLUSH 08/15/16 12:15 (Xanax) 0.25 mg Q8H PRN PO 08/15/16 12:15 (Abilify) 15 mg HS PO 08/15/16 21:00 08/16/16 21:31 (Symbicort 160-4.5 Inh) 2 puff Q12HR INH 08/15/16 21:00 (Neurontin) 100 mg TID PO 08/15/16 13:00 08/17/16 13:02 ([place] 10-325 Mg) 1 tab Q4H PRN PO 08/15/16 12:15 (Spiriva Inh) 18 mcg DAILY INH 08/16/16 09:00 (Desyrel) 100 mg HS PO 08/15/16 21:00 08/16/16 21:31 (PROzac) 60 mg DAILY PO 08/16/16 09:00 Hold (Tylenol) 650 mg Q4H PRN PO 08/15/16 12:15 (Zofran Inj) 4 mg Q6H PRN IV 08/15/16 12:15 (Colace) 100 mg BID PRN PO 08/15/16 12:15 (Mag-Al Plus Susp Liq) 30 ml Q6H PRN PO 08/15/16 12:15 (Tums Chew) 1,000 mg TID PRN CHEW 08/15/16 12:15 (Vasotec Inj) 1.25 mg Q6H PRN IV 08/15/16 12:15 (Apresoline Inj) 10 mg Q6H PRN IV 08/15/16 12:15 (Catapres) 0.1 mg Q6H PRN PO 08/15/16 12:15 Miscellaneous Information 1 Q361D XX 08/15/16 13:15 08/15/16 19:00 (Chlorhexidine 2% Cloth) 3 pack Taper DAILY@04 TOP 08/16/16 04:00 08/12/17 03:59 08/17/16 02:06 (Chlorhexidine 2% Cloth) 3 pack UNSCH PRN TOP 08/15/16 13:15 (Heparin Inj) 5,000 units UNSCH PRN IV 08/15/16 19:15 Hold Heparin Sodium (Porcine) 2500 units 2,500 units UNSCH PRN IV 08/15/16 19:15 Hold Heparin Sodium/ Dextrose 250 ml @ 0 mls/hr TITRATE IV 08/15/16 13:15 Hold 08/15/16 15:22 (Levaquin 750 Mg Premix Inj) 150 ml @ 100 mls/hr Q24H IV 08/15/16 16:00 08/16/16 16:20 (Apresoline Inj) 10 mg Q2HR PRN IV PUSH 08/15/16 16:00 08/16/16 04:36 (Pepcid Inj) 20 mg Q12H IV PUSH 08/15/16 16:00 08/17/16 04:18 (D50w (Vial) Inj) 25 ml UNSCH PRN IV PUSH 08/15/16 17:30 (Glucagon Inj) 1 mg UNSCH PRN OTHER 08/15/16 17:30 (Dilantin Inj) 100 mg Q8HR IV 08/16/16 14:00 08/17/16 13:01 Chlorhexidine Gluconate 15 ml 15 ml BID@08,20 MT 08/16/16 20:00 08/17/16 08:00 Propofol 100 ml @ 0 mls/hr TITRATE IV 08/16/16 15:30 08/17/16 06:18 (Levophed-Dextrose Drip) 250 ml @ 0 mls/hr TITRATE IV 08/16/16 15:30 08/17/16 06:19 Terbutaline Sulfate 1 mg 1 mg UNSCH PRN SQ 08/16/16 15:15 (NS 1000 ml Inj) 1,000 ml @ 50 mls/hr Q20H IV 08/16/16 15:30 08/17/16 11:30 Mannitol 12.5 gm 12.5 gm Q8HR IV 08/16/16 22:00 08/17/16 13:01 (fentaNYL DRIP) 250 ml @ 0 mls/hr TITRATE IV 08/17/16 10:45 (NovoLOG SUPPLEMENTAL SCALE) 1 Q6HR SQ 08/17/16 12:00 (SoluMEDROL INJ) 60 mg Q8HR IVP 08/17/16 14:00 08/17/16 13:01 (Aspirin Chew) 162 mg DAILY CHEW 08/17/16 12:15 08/17/16 13:03 (Heparin Inj) 5,000 units Q12HR SQ 08/17/16 12:15 08/17/16 12:15 Allergies Allergies Coded Allergies No Known Allergies (Unverified07/09/16) Exam I&O / VS 08/16/16 08/16/16 08/17/16 15:00 23:00 07:00 Intake Total 211 ml 950 ml 1124 ml Output Total 675 ml 600 ml 450 ml Balance -464 ml 350 ml 674 ml Intake IV Total 211 ml 950 ml 1124 ml Output Urine Total 675 ml 550 ml 450 ml Chest Tube Drainage Total 50 ml 0 ml # Bowel Movements 0 0 0 Vital Signs Date Time Temp Pulse Resp B/P Pulse Ox O2 Delivery O2 Flow Rate FiO2 08/17/16 16:00 96 08/17/16 16:00 99.0 96 27 123/82 100 114/69 08/17/16 15:55 94 40 08/17/16 14:00 81 08/17/16 12:00 79 08/17/16 12:00 98.8 86 27 111/82 100 106/66 08/17/16 11:49 100 40 08/17/16 11:49 100 40 08/17/16 10:00 81 08/17/16 08:38 100 40 08/17/16 08:15 100 100 08/17/16 08:00 86 08/17/16 08:00 100 Mechanical Ventilator 40 08/17/16 08:00 98.8 86 27 105/72 100 101/65 08/17/16 06:00 88 08/17/16 04:08 99 40 08/17/16 04:00 106 08/17/16 04:00 98.8 106 27 131/88 100 122/72 08/17/16 02:00 111 08/17/16 01:06 99 50 08/17/16 00:00 90 08/17/16 00:00 99.9 99 26 101/67 100 94/57 08/16/16 22:06 100 50 08/16/16 22:00 90 08/16/16 20:00 90 08/16/16 20:00 98.6 90 26 111/77 100 98/59 08/16/16 19:36 100 50 08/16/16 19:00 100 Mechanical Ventilator 50 08/16/16 18:00 97 107/84 113/68 08/16/16 18:00 97 08/16/16 17:06 100 50 08/16/16 17:00 93 104/71 98/58 Exam Comments sedated perrl right hemiplegia with increased tone Objective Radiology Results CT brain--evolving left mca stroke with slight increase edema at left lat ventricle. No hemorrhage. Micro and Labs Laboratory Tests Test 08/16/16 08/16/16 08/17/16 08/17/16 16:58 21:00 03:10 04:35 Sodium Level 141 143 144 Serum Osmolality 311 317 312 Lactic Acid Level 2.7 1.8 Troponin I 5.70 Triglycerides Level 140 Cholesterol Level 165 LDL Cholesterol 100 HDL Cholesterol 37.0 Cholesterol/HDL Ratio 4.45 Phenytoin (Dilantin) Level 14.0 Potassium Level 4.8 Chloride Level 111 Carbon Dioxide Level 26.0 Anion Gap 7 Blood Urea Nitrogen 20 Creatinine 1.05 Estimat Glomerular Filtration 75 Rate Random Glucose 178 Calcium Level 8.2 Total Bilirubin 0.2 Aspartate Amino Transf 27 (AST/SGOT) Alanine Aminotransferase 37 (ALT/SGPT) Alkaline Phosphatase 46 Total Protein 5.7 Albumin 2.6 White Blood Count 22.8 Red Blood Count 3.85 Hemoglobin 11.7 Hematocrit 35.3 Mean Corpuscular Volume 91.6 Mean Corpuscular Hemoglobin 30.3 Mean Corpuscular Hemoglobin 33.1 Concent Red Cell Distribution Width 13.9 Platelet Count 178 Mean Platelet Volume 8.5 Neutrophils (%) (Auto) 92.9 Lymphocytes (%) (Auto) 4.5 Monocytes (%) (Auto) 1.1 Eosinophils (%) (Auto) 1.1 Basophils (%) (Auto) 0.4 Neutrophils # (Auto) 21.2 Lymphocytes # (Auto) 1.0 Monocytes # (Auto) 0.3 Eosinophils # (Auto) 0.3 Basophils # (Auto) 0.1 CBC Comment DIFF FINAL Differential Comment Test 08/17/16 10:32 Serum Osmolality 314 Date/Time Procedure Status Source Growth 08/16/16 16:55 Gram Stain - Final Resulted Sputum Endotracheal 08/16/16 16:55 Sputum Culture - Preliminary Resulted Sputum Endotracheal HEAVY GROWTH NORMAL RESPIRATORY [place]... 08/16/16 15:45 Aerobic Blood Culture - Preliminary Resulted Blood Peripheral NO GROWTH IN 1 DAY 08/16/16 15:45 Anaerobic Blood Culture - Preliminary Resulted Blood Peripheral NO GROWTH IN 1 DAY 08/15/16 22:00 Legionella Antigen - Final Complete Urine Random Urine PRESUMPTIVE NEGATIVE FOR LEGIONELLA P... 08/15/16 22:00 Streptococcus pneumoniae Antigen (M - Final Complete Urine Random Urine PRESUMPTIVE NEGATIVE FOR STREPTOCOCCU... Fabrizio Jean PhD MD Aug 17, 2016 16:40
--- NOTE | 2016-08-17 19:32 | EKG ---
Date Performed: 08/16/2016 Time Performed: 08:24:42 PTAGE: 50 years EKG: Sinus rhythm Indeterminate axis Right bundle branch block Abnormal ECG PREVIOUS TRACING : 11/22/2012 12.22 Compared to prior tracing no significant change DOCTOR: Varghese May Interpretating Date/Time 08/17/2016 19:32:05
[2016-08-17] MEDS: traZODone HCL 100 MG TAB PO SCH (22:41)
[2016-08-17] MEDS: ARIPiprazole 15 MG TAB PO SCH (23:44)
[2016-08-18] VITALS (19 sets, daily range): BP systolic 105–140; BP diastolic 58–87; PULSE 73–105; RESP 25–32; TEMP 98.4–101.4; O2SAT 96–100
[2016-08-18] MEDS: fentaNYL DRIP 250 ML IV SCH (02:29)
[2016-08-18] MEDS: RESP: ALBUTEROL 2.5 MG/IPRATROPIUM 0.5 MG NEB (SCH) NEB ×6 (03:41→23:25)
[2016-08-18] MEDS: CHLORHEXIDINE GLUCONATE 2 % 1 PACK (2 CLOTHS) TOP SCH (04:00)
--- NOTE | 2016-08-18 04:33 | RADRPT ---
EXAM DATE/TIME: 08/18/2016 03:13 [place] COMPARISON: CHEST SINGLE AP, August 16, 2016, 15:33. INDICATIONS : Shortness of breath, possible pulmonary disease. MEDICAL HISTORY : Carcinoma, lung. Chronic obstructive pulmonary disease. Diabetes mellitus type II. Hypertension SURGICAL HISTORY : Coronary artery stent. ENCOUNTER: Subsequent ACUITY: 3 days PAIN SCORE: Non-responsive. LOCATION: Bilateral chest FINDINGS: Patchy consolidation and probable small effusion again seen on the right. A right chest tube remains in place, tip just lateral to the hilum. No commenced we see a pneumothorax currently but there is pe rsistent and actually probably increasing right chest wall emphysema. Left lung remains clear. Endotracheal tube tip is approximately 3 cm above the bisi. There is a nasogastric tube coursing in to the stomach. Right internal jugular [id number] catheter with tip in the right atrium again seen . There is a left internal jugular central venous catheter again seen with tip in the superior vena c fabi. CONCLUSION: No perceptible pneumothorax. Otherwise no change. Neftaly Holden MD on August 18, 2016 at 4:29 Board Certified Radiologist. This report was verified electronically.
[2016-08-18] MEDS: FAMOTIDINE 20 MG/2 ML VIAL IV PUSH SCH ×2 (04:34→16:34)
[2016-08-18] MEDS: PROPOFOL 1000 MG/100 ML INJ 100 ML IV SCH ×2 (05:02→12:21)
[2016-08-18] MEDS: NOREPINEPHRINE-DEXTROSE DRIP 250 ML IV SCH ×2 (05:03→14:43)
[2016-08-18] MEDS: methylPREDNISolone SOD SUCC 125 MG/2 ML VIAL IVP SCH ×3 (05:03→22:49)
[2016-08-18] MEDS: MANNITOL 12.5 GM/50 ML VIAL IV SCH ×2 (05:04→19:34)
[2016-08-18] MEDS: PHENYTOIN INJ 100 MG/2 ML VIAL IV SCH ×3 (05:04→22:52)
[2016-08-18] MEDS: INSULIN ASPART SUPPLEMENTAL SCALE SQ SCH ×3 (05:05→17:39)
[2016-08-18 05:06] LABS: BLOOD GAS BASE EXCESS -2.2 mmol/L (-2-2); BLOOD GAS CARBOXYHEMOGLOBIN 1.4 % (0-4); BLOOD GAS HCO3 23 mmol/L (22-26); BLOOD GAS O2 HGB SATURATION 94 % (90-100); BLOOD GAS OXYGEN CONTENT 13.6 Vol % (12.0-20.0); BLOOD GAS PCO2 42 mmHg (38-42); BLOOD GAS PO2 87 mmHg (61-120); BLOOD GAS TOTAL HGB 10.2 G/DL (12.0-16.0); CRITICAL VALUE NO; DRAW SITE ART LINE; FIO2 40 %; OXYGEN DEVICE VENTILATOR; STAT NO; TEMP CORR TO 98.6; VENT SETTINGS AC 26/550/5PEEP
[2016-08-18 05:19] LABS: BASOPHIL % 0.1 % (0.0-2.0); HEMATOCRIT 34.9 % (39.0-51.0); HEMO FLAGS DIFF FINAL; LYMPH % 4.7 % (9.0-44.0); LYMPHOCYTE # 0.9 TH/MM3 (1.0-4.8); MEAN CELL VOLUME 92.7 FL (80.0-100.0); MEAN CORPUSCULAR HEMOGLOBIN 30.1 PG (27.0-34.0); MEAN CORPUSCULAR HGB CONC 32.5 % (32.0-36.0); MONO % 6.4 % (0.0-8.0); NEUT % 88.8 % (16.0-70.0); PLATELET COUNT 166 TH/MM3 (150-450); RED BLOOD COUNT 3.77 MIL/MM3 (4.50-5.90); RED CELL DISTRIBUTION WIDTH 14.3 % (11.6-17.2); WHITE BLOOD COUNT 20.3 TH/MM3 (4.0-11.0)
[2016-08-18 06:11] LABS: ANION GAP 4 MEQ/L (5-15); AST (GOT) 16 U/L (15-37); BLOOD UREA NITROGEN 26 MG/DL (7-18); CHLORIDE 113 MEQ/L (98-107); GLOMERULAR FILTRATION RATE 71 ML/MIN (>89); MAGNESIUM 2.7 MG/DL (1.5-2.5); POTASSIUM 4.8 MEQ/L (3.5-5.1); SODIUM (NA) 147 MEQ/L (136-145)
[2016-08-18 06:14] LABS: ALKALINE PHOSPHATASE 46 U/L (45-117); ALT (GPT) 33 U/L (12-78); TOTAL BILIRUBIN ADULT 0.2 MG/DL (0.2-1.0)
[2016-08-18] MEDS: SODIUM CHLOR 0.9% 1000 ML INJ 1,000 ML IV SCH (06:35)
[2016-08-18] MEDS: CHLORHEXIDINE 0.12% (ORAL KIT) 15 ML CUP MT SCH ×2 (08:00→19:35)
[2016-08-18] MEDS: HEPARIN SODIUM - SQ 10,000 UNITS/ML VIAL SQ SCH ×2 (08:25→19:33)
[2016-08-18] MEDS: GABAPENTIN 100 MG CAP PO SCH ×3 (08:25→17:39)
[2016-08-18] MEDS: ASPIRIN 81 MG CHEW TAB CHEW SCH (08:26)
[2016-08-18] MEDS: SODIUM CHLORIDE 0.9% FLUSH 10 ML FLUSH IV FLUSH SCH ×2 (08:26→19:33)
[2016-08-18] MEDS: TIOTROPIUM BROMIDE 18 MCG INH INH SCH (09:00)
[2016-08-18] MEDS: BUDESONIDE-FORMOTEROL 160/4.5 MCG INHALER INH SCH ×2 (11:54→19:54)
[2016-08-18] MEDS: 3% SALINE INJ 500 ML IV SCH (12:21)
[2016-08-18] MEDS: SENNOSIDES SYRUP 8.8 MG/5 ML CUP OG-TUBE SCH (12:24)
--- NOTE | 2016-08-18 13:36 | HHI.NSPN ---
Note Status Status: Progress Note Interval History Diagnosis Left MCA infarct Interval History 08/18 proximal left MCA thrombus with infarct. Not a candidate for thrombectomy or tPA. Head CT from 08/18 showed evolving edema along the left MCA territory. There is no significant midline shift or mass effect at this point. Yesterday started on aspirin and subcutaneous heparin. Family members understand that there is a risk for hemorrhage conversion of the infarct. Labs, Micro, & Vital Signs Results Date Time Temp Pulse Resp B/P Pulse Ox O2 Delivery O2 Flow Rate FiO2 08/18/16 12:00 99.8 85 26 116/80 100 116/69 08/18/16 12:00 85 08/18/16 10:00 89 08/18/16 09:46 100 40 08/18/16 08:00 98.6 89 32 118/85 100 131/82 08/18/16 08:00 89 08/18/16 08:00 89 118/85 131/82 08/18/16 07:00 100 Mechanical Ventilator 40 08/18/16 06:00 101 08/18/16 04:00 98.4 105 25 126/86 99 140/87 08/18/16 04:00 105 08/18/16 03:41 99 40 08/18/16 02:00 88 08/18/16 00:00 98.4 87 26 115/82 97 112/68 08/18/16 00:00 87 08/17/16 23:23 98 40 08/17/16 22:00 84 08/17/16 20:18 95 40 08/17/16 20:00 98.8 86 22 112/81 96 109/67 08/17/16 20:00 86 08/17/16 19:00 Mechanical Ventilator 15.00 40 08/17/16 18:00 87 08/17/16 16:00 96 08/17/16 16:00 96 123/82 114/69 08/17/16 16:00 99.0 96 27 123/82 100 114/69 08/17/16 15:55 94 40 08/17/16 14:00 81 08/18/16 07:00 Intake Total 3517 ml Output Total 1240 ml Balance 2277 ml Constitutional Vital Signs Date Time Temp Pulse Resp B/P Pulse Ox O2 Delivery O2 Flow Rate FiO2 08/18/16 12:00 99.8 85 26 116/80 100 116/69 08/18/16 12:00 85 08/18/16 10:00 89 08/18/16 09:46 100 40 08/18/16 08:00 98.6 89 32 118/85 100 131/82 08/18/16 08:00 89 08/18/16 08:00 89 118/85 131/82 08/18/16 07:00 100 Mechanical Ventilator 40 08/18/16 06:00 101 08/18/16 04:00 98.4 105 25 126/86 99 140/87 08/18/16 04:00 105 08/18/16 03:41 99 40 08/18/16 02:00 88 08/18/16 00:00 98.4 87 26 115/82 97 112/68 08/18/16 00:00 87 08/17/16 23:23 98 40 08/17/16 22:00 84 08/17/16 20:18 95 40 08/17/16 20:00 98.8 86 22 112/81 96 109/67 08/17/16 20:00 86 08/17/16 19:00 Mechanical Ventilator 15.00 40 08/17/16 18:00 87 08/17/16 16:00 96 08/17/16 16:00 96 123/82 114/69 08/17/16 16:00 99.0 96 27 123/82 100 114/69 08/17/16 15:55 94 40 08/17/16 14:00 81 08/18/16 07:00 Intake Total 3517 ml Output Total 1240 ml Balance 2277 ml Review of Systems/Exam Exam Intubated Pupils are equal and reactive 2-3 mm Does not follow commands Went off sedation has 5/5 strength along the left upper and lower extremities. Minimal spontaneous movement along the left extremities when off sedation Medications Current Medications Current Medications Sodium Chloride (NS 1000 ml Inj) 1,000 ml @ 0 mls/hr Q0M IV ; Start 08/15/16 at 07:15; Stop 08/16/16 at 15:33; Status DC Sodium Chloride (NS Flush) 2 ml UNSCH PRN IV FLUSH SEE COMMENTS; Start at 07:15 Sodium Chloride (NS Flush) 2 ml UNSCH PRN IV FLUSH FLUSH AFTER USING IV ACCESS ; Start 08/15/16 at 07:15 Sodium Chloride (NS Flush) 5 ml Q21D IV FLUSH Last administered on 08/16/16 08 :39; Admin Dose 5 ML; Start 08/15/16 at 07:15 Heparin Sodium (Porcine) (Heparin Central Flush) 500 units Q21D IV FLUSH ; Start 08/15/16 at 07:15 Sodium Chloride (NS Flush) 5 ml UNSCH PRN IV FLUSH SEE LABEL COMMENTS; Start at 07:15 Heparin Sodium (Porcine) (Heparin Central Flush) 250 units UNSCH PRN IV FLUSH SEE LABEL COMMENTS; Start 08/15/16 at 07:15 Lidocaine/ Epinephrine (Xylocaine-Epi 1%-1:100,000 Inj) 20 ml STK-MED ONCE .ROUTE ; Start 08/15/16 at 07:42; Stop 08/15/16 at 07:43; Status DC Midazolam HCl (Versed Inj) 5 mg STK-MED ONCE .ROUTE Last administered on 08:18; Admin Dose 3 MG; Start 08/15/16 at 08:18; Stop 08/15/16 at 08:19; Status DC Fentanyl Citrate (fentaNYL INJ) 250 mcg STK-MED ONCE .ROUTE Last administered on 08/15/16 08:18; Admin Dose 150 MCG; Start 08/15/16 at 08:18; Stop 08/15/16 at 08:19; Status DC Albuterol/ Ipratropium (Duoneb Neb) 1 ampule ONCE ONCE NEB Last administered on 08/15/16 12:36; Admin Dose 1 AMPULE; Start 08/15/16 at 12:15; Stop 08/15/16 at 12:16; Status DC Sodium Chloride (NS Flush) 2 ml BID IV FLUSH Last administered on 08/18/16 08: 26; Admin Dose 2 ML; Start 08/15/16 at 21:00 Sodium Chloride (NS Flush) 2 ml UNSCH PRN IV FLUSH FLUSH AFTER USING IV ACCESS ; Start 08/15/16 at 12:15 Albuterol/ Ipratropium (Duoneb Neb) 1 ampule QID NEB INH Last administered on 08/16/16 19:36; Admin Dose 1 AMPULE; Start 08/15/16 at 16:00; Stop 08/16/16 at 23:29; Status DC Albuterol Sulfate (Albuterol Neb) 2.5 mg Q2HR NEB PRN INH SHORTNESS OF BREATH; Start 08/15/16 at 12:15 Methylprednisolone Sodium Succinate (SoluMEDROL INJ) 60 mg Q6H IVP ; Start 08/15 at 14:00; Stop 08/15/16 at 14:52; Status DC Alprazolam (Xanax) 0.25 mg Q8H PRN PO ANXIETY; Start 08/15/16 at 12:15 Aripiprazole (Abilify) 15 mg HS PO Last administered on 08/17/16 23:44; Admin Dose 15 MG; Start 08/15/16 at 21:00 Budesonide/ Formoterol Fumarate (Symbicort 160-4.5 Inh) 2 puff Q12HR INH Last administered on 08/18/16 11:54; Admin Dose 2 PUFF; Start 08/15/16 at 21:00 Gabapentin (Neurontin) 100 mg TID PO Last administered on 08/18/16 12:22; Admin Dose 100 MG; Start 08/15/16 at 13:00 Acetaminophen/ Hydrocodone Bitart ([place] 10-325 Mg) 1 tab Q4H PRN PO PAIN SCALE 1 TO 10; Start 08/15/16 at 12:15 Tiotropium [place] (Spiriva Inh) 18 mcg DAILY INH ; Start 08/16/16 at 09:00 Trazodone HCl (Desyrel) 100 mg HS PO Last administered on 08/17/16 22:41; Admin Dose 100 MG; Start 08/15/16 at 21:00 Fluoxetine HCl (PROzac) 60 mg DAILY PO ; Start 08/16/16 at 09:00; Status Hold Acetaminophen (Tylenol) 650 mg Q4H PRN PO Temp > 100.4; Start 08/15/16 at 12:15 Ondansetron HCl (Zofran Inj) 4 mg Q6H PRN IV NAUSEA; Start 08/15/16 at 12:15 Docusate Sodium (Colace) 100 mg BID PRN PO CONSTIPATION; Start 08/15/16 at 12: 15 Al Hydrox/Mg Hydrox/Simethicone (Mag-Al Plus Susp Liq) 30 ml Q6H PRN PO DYSPEPSIA; Start 08/15/16 at 12:15 Calcium Carbonate (Tums Chew) 1,000 mg TID PRN CHEW DYSPEPSIA; Start 08/15/16 at 12:15 Enalaprilat (Vasotec Inj) 1.25 mg Q6H PRN IV SBP> OR = 180, DBP> OR = 100; Start 08/15/16 at 12:15; Stop 08/18/16 at 06:50; Status DC Hydralazine HCl (Apresoline Inj) 10 mg Q6H PRN IV SBP> OR = 180, DBP> OR = 100 ; Start 08/15/16 at 12:15; Stop 08/18/16 at 06:50; Status DC Clonidine (Catapres) 0.1 mg Q6H PRN PO SBP> OR = 180, DBP> OR = 100; Start at 12:15; Stop 08/18/16 at 06:50; Status DC Naloxone HCl (Narcan Inj) 0.4 mg UNSCH X1 PRN IV PUSH RESP DEPRESSION OR HYPOTENSION; Start 08/15/16 at 12:15; Stop 08/16/16 at 12:14; Status DC Enoxaparin Sodium (Lovenox Inj) 70 mg STAT ONCE SQ ; Start 08/15/16 at 14:00; Stop 08/15/16 at 14:00; Status DC Miscellaneous Information 1 Q361D XX Last administered on 08/15/16 19:00; Admin Dose 1; Start 08/15/16 at 13:15 Chlorhexidine Gluconate (Chlorhexidine 2% Cloth) 3 pack Taper DAILY@04 TOP Last administered on 08/18/16 04:00; Admin Dose 3 PACK; Start 08/16/16 at 04:00 ; Stop 08/12/17 at 03:59 Chlorhexidine Gluconate (Chlorhexidine 2% Cloth) 3 pack UNSCH PRN TOP HYGIENIC CARE; Start 08/15/16 at 13:15 Enoxaparin Sodium (Lovenox Inj) 70 mg Q12H SQ ; Start 08/16/16 at 01:00; Stop at 01:00; Status DC Heparin Sodium (Porcine) (Heparin Inj) 5,000 units UNSCH PRN IV APTT LESS THAN 25; Start 08/15/16 at 19:15; Status Hold Heparin Sodium (Porcine) 2500 units 2,500 units UNSCH PRN IV APTT 25 TO 39; Start 08/15/16 at 19:15; Status Hold Heparin Sodium/ Dextrose (Heparin-D5W Inj) 250 ml @ 0 mls/hr TITRATE IV Last administered on 08/15/16 15:22; Admin Dose 0 MLS/HR; Start 08/15/16 at 13:15; Status Hold Iohexol (Omnipaque 350 Inj) 75 ml STK-MED ONCE IV Last administered on 13:29; Admin Dose 75 ML; Start 08/15/16 at 13:29; Stop 08/15/16 at 13:30; Status DC Etomidate (Amidate Inj) 40 mg STK-MED ONCE .ROUTE ; Start 08/15/16 at 14:05; Stop 08/15/16 at 14:06; Status DC Lidocaine/ Epinephrine (Xylocaine-Epi 1%-1:100,000 Inj) 20 ml ONCE ONCE INFIL ; Start 08/15/16 at 14:15; Stop 08/15/16 at 14:22; Status DC Lidocaine/ Epinephrine (Xylocaine-Epi 1%-1:100,000 Inj) 30 ml STK-MED ONCE .ROUTE ; Start 08/15/16 at 14:15; Stop 08/15/16 at 14:16; Status DC Morphine Sulfate (Morphine Inj) 8 mg STK-MED ONCE .ROUTE Last administered on 14:18; Admin Dose 8 MG; Start 08/15/16 at 14:18; Stop 08/15/16 at 14:19 ; Status DC Methylprednisolone Sodium Succinate (SoluMEDROL INJ) 125 mg ONCE ONCE IV PUSH Last administered on 08/15/16 14:55; Admin Dose 125 MG; Start 08/15/16 at 15:00 ; Stop 08/15/16 at 15:01; Status DC Albuterol/ Ipratropium (Duoneb Neb) 1 ampule Q2HR NEB NEB Last administered on 08/15/16 22:58; Admin Dose 1 AMPULE; Start 08/15/16 at 16:00; Stop 08/15/16 at 23:59; Status DC Albuterol/ Ipratropium (Duoneb Neb) 1 ampule ONCE ONCE NEB Last administered on 08/15/16 15:53; Admin Dose 1 AMPULE; Start 08/15/16 at 15:00; Stop 08/15/16 at 15:01; Status DC Albuterol/ Ipratropium (Duoneb Neb) 1 ampule Q4HR NEB PRN NEB SOB/WHEEZING; Start 08/15/16 at 15:00; Stop 08/15/16 at 18:09; Status DC Methylprednisolone Sodium Succinate 60 mg 60 mg Q6H IVP Last administered on 09:00; Admin Dose 60 MG; Start 08/15/16 at 21:00; Stop 08/17/16 at 10:45 ; Status DC Levofloxacin/ Dextrose (Levaquin 750 Mg Premix Inj) 150 ml @ 100 mls/hr Q24H IV Last administered on 08/17/16 16:00; Admin Dose 100 MLS/HR; Start 08/15/16 at 16:00 Hydralazine HCl (Apresoline Inj) 10 mg Q2HR PRN IV PUSH BP >150/90 Last administered on 08/16/16 04:36; Admin Dose 10 MG; Start 08/15/16 at 16:00 Famotidine (Pepcid Inj) 20 mg Q12H IV PUSH Last administered on 08/18/16 04:34 ; Admin Dose 20 MG; Start 08/15/16 at 16:00 Dextrose (D50w (Vial) Inj) 25 ml UNSCH PRN IV PUSH HYPOGLYCEMIA-SEE COMMENTS; Start 08/15/16 at 17:30 Glucagon (Glucagon Inj) 1 mg UNSCH PRN OTHER HYPOGLYCEMIA-SEE COMMENTS; Start 08/15/16 at 17:30 Insulin Aspart (NovoLOG SUPPLEMENTAL SCALE) 1 ACHS SLIDING SCALE SQ Last administered on 08/17/16 06:19; Admin Dose 1; Start 08/15/16 at 21:00; Stop at 10:45; Status DC Albuterol/ Ipratropium (Duoneb Neb) 1 ampule Q4HR NEB NEB Last administered on 08/18/16 11:54; Admin Dose 1 AMPULE; Start 08/16/16 at 00:00 Albuterol/ Ipratropium (Duoneb Neb) 1 ampule Q2HR NEB PRN NEB SOB/WHEEZING; Start 08/16/16 at 00:00 Aspirin (Aspirin Supp) 300 mg ONCE ONCE RECTAL Last administered on 08/15/16 23:41; Admin Dose 300 MG; Start 08/15/16 at 23:15; Stop 08/15/16 at 23:16; Status DC Iohexol (Omnipaque 350 Inj) 75 ml STK-MED ONCE IV Last administered on 04:22; Admin Dose 75 ML; Start 08/16/16 at 04:22; Stop 08/16/16 at 04:23; Status DC Mannitol (Mannitol Inj) 12.5 gm Q6H IV Last administered on 08/16/16 17:10; Admin Dose 12.5 GM; Start 08/16/16 at 05:30; Stop 08/16/16 at 19:23; Status DC Etomidate (Amidate Inj) 40 mg STK-MED ONCE .ROUTE Last administered on 08:38; Admin Dose 40 MG; Start 08/16/16 at 07:54; Stop 08/16/16 at 07:55; Status DC Fentanyl Citrate (fentaNYL INJ) 200 mcg STK-MED ONCE .ROUTE Last administered on 08/16/16 07:54; Admin Dose 200 MCG; Start 08/16/16 at 07:54; Stop 08/16/16 at 07:55; Status DC Rocuronium [place] (Zemuron Inj) 50 mg STK-MED ONCE .ROUTE Last administered on 08/16/16 08:38; Admin Dose 50 MG; Start 08/16/16 at 07:54; Stop 08/16/16 at 07:55; Status DC Rocuronium [place] 50 mg 50 mg STK-MED ONCE .ROUTE ; Start 08/16/16 at 07:55; Stop 08/16/16 at 07:56; Status DC Propofol 100 ml @ As Directed STK-MED ONCE .ROUTE Last administered on 08:39; Admin Dose As Directed MLS/HR; Start 08/16/16 at 08:12; Stop at 08:13; Status DC Fosphenytoin Sodium/Sodium Chloride (Cerebyx Inj/NS Inj) 70 ml @ 280 mls/hr ONCE STAT IV Last administered on 08/16/16 09:00; Admin Dose 280 MLS/HR; Start 08/16/16 at 09:00; Stop 08/16/16 at 09:31; Status DC Phenytoin Sodium (Dilantin Inj) 100 mg Q8HR IV Last administered on 08/18/16 05:04; Admin Dose 100 MG; Start 08/16/16 at 14:00 Aspirin (Aspirin Supp) 300 mg DAILY RECTAL ; Start 08/16/16 at 10:00; Stop 08/17 at 12:07; Status DC Lorazepam (Ativan Inj) 2 mg STK-MED ONCE .ROUTE Last administered on 08/16/16 09:51; Admin Dose 2 MG; Start 08/16/16 at 09:51; Stop 08/16/16 at 09:52; Status DC Gadodiamide (Omniscan Pf Inj) 20 ml STK-MED ONCE IV Last administered on 11:40; Admin Dose 20 ML; Start 08/16/16 at 11:40; Stop 08/16/16 at 11:41; Status DC Iohexol 10 ml 10 ml STK-MED ONCE IV Last administered on 08/16/16 11:55; Admin Dose 10 ML; Start 08/16/16 at 11:55; Stop 08/16/16 at 11:56; Status DC Norepinephrine Bitartrate (Levophed-Dextrose Drip) 250 ml @ As Directed STK- MED ONCE IV Last administered on 08/16/16 14:42; Admin Dose 40 MLS/HR; Start 08/16/16 at 14:42; Stop 08/16/16 at 14:43; Status DC Lorazepam (Ativan Inj) 2 mg STK-MED ONCE .ROUTE Last administered on 08/16/16 14:42; Admin Dose 2 MG; Start 08/16/16 at 14:42; Stop 08/16/16 at 14:43; Status DC Chlorhexidine Gluconate 15 ml 15 ml BID@08,20 MT Last administered on 08:00; Admin Dose 15 ML; Start 08/16/16 at 20:00 Propofol 100 ml @ 0 mls/hr TITRATE IV Last administered on 08/18/16 12:21; Admin Dose 0 MLS/HR; Start 08/16/16 at 15:30 Norepinephrine Bitartrate (Levophed-Dextrose Drip) 250 ml @ 0 mls/hr TITRATE IV Last administered on 08/18/16 05:03; Admin Dose 0 MLS/HR; Start 08/16/16 at 15:30 Terbutaline Sulfate 1 mg 1 mg UNSCH PRN SQ For Extravasation; Start 08/16/16 at 15:15 Sodium Chloride 1,000 ml @ 50 mls/hr Q20H IV Last administered on 08/18/16 06 :35; Admin Dose 50 MLS/HR; Start 08/16/16 at 15:30 Sodium Chloride (Sodium Chloride 3% Inj) 500 ml @ 30 mls/hr ONCE ONCE IV Last administered on 08/16/16 17:12; Admin Dose 30 MLS/HR; Start 08/16/16 at 15 :30; Stop 08/17/16 at 08:09; Status DC Mannitol (Mannitol Inj) 12.5 gm Q8HR IV Last administered on 08/17/16 22:00; Admin Dose 12.5 GM; Start 08/16/16 at 22:00; Stop 08/18/16 at 06:51; Status DC Fentanyl Citrate 100 mcg 100 mcg NOW IV Last administered on 08/17/16 04:17; Admin Dose 100 MCG; Start 08/17/16 at 03:55; Stop 08/17/16 at 04:30; Status DC Fentanyl Citrate 250 ml @ 0 mls/hr TITRATE IV Last administered on 08/17/16 04 :17; Admin Dose 0 MLS/HR; Start 08/17/16 at 04:15; Stop 08/17/16 at 10:45; Status DC Fentanyl Citrate (fentaNYL DRIP) 250 ml @ 0 mls/hr TITRATE IV Last administered on 08/18/16 02:29; Admin Dose 0 MLS/HR; Start 08/17/16 at 10:45 Insulin Aspart (NovoLOG SUPPLEMENTAL SCALE) 1 Q6HR SQ Last administered on 08/18 12:22; Admin Dose 1; Start 08/17/16 at 12:00 Methylprednisolone Sodium Succinate (SoluMEDROL INJ) 60 mg Q8HR IVP Last administered on 08/18/16 05:03; Admin Dose 60 MG; Start 08/17/16 at 14:00 Aspirin (Aspirin Chew) 162 mg DAILY CHEW Last administered on 08/18/16 08:26; Admin Dose 162 MG; Start 08/17/16 at 12:15 Heparin Sodium (Porcine) (Heparin Inj) 5,000 units Q12HR SQ Last administered on 08/18/16 08:25; Admin Dose 5,000 UNITS; Start 08/17/16 at 12:15 Mannitol 12.5 gm 12.5 gm Q12HR IV ; Start 08/18/16 at 21:00 Sodium Chloride (Sodium Chloride 3% Inj) 500 ml @ 25 mls/hr Q20H IV Last administered on 08/18/16 12:21; Admin Dose 25 MLS/HR; Start 08/18/16 at 11:15 Sennosides (Senna Liq) 8.8 mg DAILY OG-TUBE Last administered on 08/18/16 12: 24; Admin Dose 8.8 MG; Start 08/18/16 at 11:30 Medical Decision Making MDM Remarks Left MCA stroke. No need for surgical intervention at this time. Neurologically stable. Plan Plan Remarks Continue medical treatment with 3% an NaCL and weaning doses off mannitol for cytotoxic edema. Jairo Vo MD Aug 18, 2016 13:36
--- NOTE | 2016-08-18 13:41 | HHI.PR ---
Review/Management Diagnosis left MCA stroke Plan CT brain today for follow up Diagnosis/Plan: Subjective Subjective Comments No acute events reported No tonic clonic activity BP improving Active Medications Current Medications Medications (Trade) Dose Ordered Sig/Beto Route Start Time Stop Time Status Last Admin (NS Flush) 2 ml UNSCH PRN IV FLUSH 08/15/16 07:15 (NS Flush) 2 ml UNSCH PRN IV FLUSH 08/15/16 07:15 (NS Flush) 5 ml Q21D IV FLUSH 08/15/16 07:15 08/16/16 08:39 (Heparin Central Flush) 500 units Q21D IV FLUSH 08/15/16 07:15 (NS Flush) 5 ml UNSCH PRN IV FLUSH 08/15/16 07:15 (Heparin Central Flush) 250 units UNSCH PRN IV FLUSH 08/15/16 07:15 (NS Flush) 2 ml BID IV FLUSH 08/15/16 21:00 08/18/16 08:26 (NS Flush) 2 ml UNSCH PRN IV FLUSH 08/15/16 12:15 (Xanax) 0.25 mg Q8H PRN PO 08/15/16 12:15 (Abilify) 15 mg HS PO 08/15/16 21:00 08/17/16 23:44 (Symbicort 160-4.5 Inh) 2 puff Q12HR INH 08/15/16 21:00 08/18/16 11:54 (Neurontin) 100 mg TID PO 08/15/16 13:00 08/18/16 12:22 ([place] 10-325 Mg) 1 tab Q4H PRN PO 08/15/16 12:15 (Spiriva Inh) 18 mcg DAILY INH 08/16/16 09:00 (Desyrel) 100 mg HS PO 08/15/16 21:00 08/17/16 22:41 (PROzac) 60 mg DAILY PO 08/16/16 09:00 Hold (Tylenol) 650 mg Q4H PRN PO 08/15/16 12:15 (Zofran Inj) 4 mg Q6H PRN IV 08/15/16 12:15 (Colace) 100 mg BID PRN PO 08/15/16 12:15 (Mag-Al Plus Susp Liq) 30 ml Q6H PRN PO 08/15/16 12:15 (Tums Chew) 1,000 mg TID PRN CHEW 08/15/16 12:15 Miscellaneous Information 1 Q361D XX 08/15/16 13:15 08/15/16 19:00 (Chlorhexidine 2% Cloth) 3 pack Taper DAILY@04 TOP 08/16/16 04:00 08/12/17 03:59 08/18/16 04:00 (Chlorhexidine 2% Cloth) 3 pack UNSCH PRN TOP 08/15/16 13:15 (Heparin Inj) 5,000 units UNSCH PRN IV 08/15/16 19:15 Hold Heparin Sodium (Porcine) 2500 units 2,500 units UNSCH PRN IV 08/15/16 19:15 Hold Heparin Sodium/ Dextrose 250 ml @ 0 mls/hr TITRATE IV 08/15/16 13:15 Hold 08/15/16 15:22 (Levaquin 750 Mg Premix Inj) 150 ml @ 100 mls/hr Q24H IV 08/15/16 16:00 08/17/16 16:00 (Apresoline Inj) 10 mg Q2HR PRN IV PUSH 08/15/16 16:00 08/16/16 04:36 (Pepcid Inj) 20 mg Q12H IV PUSH 08/15/16 16:00 08/18/16 04:34 (D50w (Vial) Inj) 25 ml UNSCH PRN IV PUSH 08/15/16 17:30 (Glucagon Inj) 1 mg UNSCH PRN OTHER 08/15/16 17:30 (Dilantin Inj) 100 mg Q8HR IV 08/16/16 14:00 08/18/16 05:04 Chlorhexidine Gluconate 15 ml 15 ml BID@08,20 MT 08/16/16 20:00 08/18/16 08:00 Propofol 100 ml @ 0 mls/hr TITRATE IV 08/16/16 15:30 08/18/16 12:21 (Levophed-Dextrose Drip) 250 ml @ 0 mls/hr TITRATE IV 08/16/16 15:30 08/18/16 05:03 Terbutaline Sulfate 1 mg 1 mg UNSCH PRN SQ 08/16/16 15:15 Sodium Chloride 1,000 ml @ 50 mls/hr Q20H IV 08/16/16 15:30 08/18/16 06:35 (fentaNYL DRIP) 250 ml @ 0 mls/hr TITRATE IV 08/17/16 10:45 08/18/16 02:29 (NovoLOG SUPPLEMENTAL SCALE) 1 Q6HR SQ 08/17/16 12:00 08/18/16 12:22 (SoluMEDROL INJ) 60 mg Q8HR IVP 08/17/16 14:00 08/18/16 05:03 (Aspirin Chew) 162 mg DAILY CHEW 08/17/16 12:15 08/18/16 08:26 (Heparin Inj) 5,000 units Q12HR SQ 08/17/16 12:15 08/18/16 08:25 Mannitol 12.5 gm 12.5 gm Q12HR IV 08/18/16 21:00 (Sodium Chloride 3% Inj) 500 ml @ 25 mls/hr Q20H IV 08/18/16 11:15 08/18/16 12:21 (Senna Liq) 8.8 mg DAILY OG-TUBE 08/18/16 11:30 08/18/16 12:24 Allergies Allergies Coded Allergies No Known Allergies (Unverified07/09/16) Exam I&O / VS 08/17/16 08/17/16 08/18/16 15:00 23:00 07:00 Intake Total 800 ml 1841 ml 876 ml Output Total 450 ml 475 ml 315 ml Balance 350 ml 1366 ml 561 ml Intake IV Total 800 ml 1620 ml 612 ml Tube Feeding 221 ml 164 ml Other 100 ml Output Urine Total 350 ml 475 ml 275 ml Stool Total 0 ml 0 ml Chest Tube Drainage Total 100 ml 0 ml 40 ml # Bowel Movements 0 Vital Signs Date Time Temp Pulse Resp B/P Pulse Ox O2 Delivery O2 Flow Rate FiO2 08/18/16 12:00 99.8 85 26 116/80 100 116/69 08/18/16 12:00 85 08/18/16 10:00 89 08/18/16 09:46 100 40 08/18/16 08:00 98.6 89 32 118/85 100 131/82 08/18/16 08:00 89 08/18/16 08:00 89 118/85 131/82 08/18/16 07:00 100 Mechanical Ventilator 40 08/18/16 06:00 101 08/18/16 04:00 98.4 105 25 126/86 99 140/87 08/18/16 04:00 105 08/18/16 03:41 99 40 08/18/16 02:00 88 08/18/16 00:00 98.4 87 26 115/82 97 112/68 08/18/16 00:00 87 08/17/16 23:23 98 40 08/17/16 22:00 84 08/17/16 20:18 95 40 08/17/16 20:00 98.8 86 22 112/81 96 109/67 08/17/16 20:00 86 08/17/16 19:00 Mechanical Ventilator 15.00 40 08/17/16 18:00 87 08/17/16 16:00 96 08/17/16 16:00 96 123/82 114/69 08/17/16 16:00 99.0 96 27 123/82 100 114/69 08/17/16 15:55 94 40 08/17/16 14:00 81 Exam Comments sedated pupils 2 mm symmetric right hemiplegia. No tonic clonic activity or tremor Objective Micro and Labs Laboratory Tests Test 08/17/16 08/17/16 08/18/16 08/18/16 17:00 23:40 04:00 05:00 Sodium Level 146 147 Serum Osmolality 318 325 White Blood Count 20.3 Red Blood Count 3.77 Hemoglobin 11.4 Hematocrit 34.9 Mean Corpuscular Volume 92.7 Mean Corpuscular Hemoglobin 30.1 Mean Corpuscular Hemoglobin 32.5 Concent Red Cell Distribution Width 14.3 Platelet Count 166 Mean Platelet Volume 9.0 Neutrophils (%) (Auto) 88.8 Lymphocytes (%) (Auto) 4.7 Monocytes (%) (Auto) 6.4 Eosinophils (%) (Auto) 0.0 Basophils (%) (Auto) 0.1 Neutrophils # (Auto) 18.0 Lymphocytes # (Auto) 0.9 Monocytes # (Auto) 1.3 Eosinophils # (Auto) 0.0 Basophils # (Auto) 0.0 CBC Comment DIFF FINAL Differential Comment Blood Gas Puncture Site ART LINE Blood Gas Patient Temperature 98.6 Blood Gas HCO3 23 Blood Gas Base Excess -2.2 Blood Gas Oxygen Saturation 94 Arterial Blood pH 7.35 Arterial Blood Partial 42 Pressure CO2 Arterial Blood Partial 87 Pressure O2 Arterial Blood Oxygen Content 13.6 Arterial Blood 1.4 Carboxyhemoglobin Arterial Blood Methemoglobin 1.0 Blood Gas Hemoglobin 10.2 Oxygen Delivery Device VENTILATOR Blood Gas Ventilator Setting AC 26/550/5PEEP Blood Gas Inspired Oxygen 40 Test 08/18/16 05:30 Sodium Level 147 Potassium Level 4.8 Chloride Level 113 Carbon Dioxide Level 30.0 Anion Gap 4 Blood Urea Nitrogen 26 Creatinine 1.10 Estimat Glomerular Filtration 71 Rate Random Glucose 169 Serum Osmolality 322 Calcium Level 7.9 Phosphorus Level 3.3 Magnesium Level 2.7 Total Bilirubin 0.2 Aspartate Amino Transf 16 (AST/SGOT) Alanine Aminotransferase 33 (ALT/SGPT) Alkaline Phosphatase 46 Total Protein 5.7 Albumin 2.6 Date/Time Procedure Status Source Growth 08/16/16 16:55 Gram Stain - Final Complete Sputum Endotracheal 08/16/16 16:55 Sputum Culture - Final Complete Sputum Endotracheal HEAVY GROWTH NORMAL RESPIRATORY [place] 08/16/16 15:45 Aerobic Blood Culture - Preliminary Resulted Blood Peripheral NO GROWTH IN 2 DAYS 08/16/16 15:45 Anaerobic Blood Culture - Preliminary Resulted Blood Peripheral NO GROWTH IN 2 DAYS 08/15/16 22:00 Legionella Antigen - Final Complete Urine Random Urine PRESUMPTIVE NEGATIVE FOR LEGIONELLA P... 08/15/16 22:00 Streptococcus pneumoniae Antigen (M - Final Complete Urine Random Urine PRESUMPTIVE NEGATIVE FOR STREPTOCOCCU... Fabrizio Jean PhD Aug 18, 2016 13:41
--- NOTE | 2016-08-18 14:30 | HHI.CCPN ---
Subjective Remarks/Hospital Course 08/15: Mr. Cooley is a 50 y/o CM with a PMHx of COPD who continues to smoke and is s/p R lung biopsy secondary to a recently found lung mass presenting with dyspnea. Prior to his biopsy today, he was being treated as an outpatient with a Medrol dose pack with Levaquin for a COPD exacerbation. He endorsed dyspnea on exertion today, but denied any fevers, chest pain, wheezing, cough, or LE edema/tenderness. He has a history of LLE DVT diagnosed in 07/05, but has been off his anticoagulation for approximately 11 days (Previously on Xarelto). He had a port placed 2 days ago and lung biopsy today. He has been short of breath since 1 day prior to the procedure. After his biopsy, he was found to have a small apical pneumothorax on CXR, diaphoretic, and tachypneic with hypoxia of 81 % on room air. He was placed on 4L and improved to 85%. He was then placed on a non-rebreather and transferred to the ICU. On arrival he was tachypneic with oxygen saturation in the upper 80s. CTA showed acute pulmonary embolisms of the BL lower lobes with a small R pneumothorax. Therefore a R sided chest tube was placed and heparin drip without bolus was initiated. The patient has been continued on Levaquin ABX, has been give steroids with multiple breathing treatments, and has been placed on BiPAP. 08/16: Patient was noted to have an elevated troponin and was diagnosed to have a non-ST elevation [place] last evening. He was on BiPAP at the time with full facemask. It was noticed that he was not moving the right side of his body when he was turned to administer rectal aspirin and subsequent head CT and CTA revealed significant edema in the left cerebral hemisphere and occluded left MCA with thrombus. Neurology was contacted by Dr. Martínez and due to concern for hemorrhagic transformation heparin was held. Dr. Martínez discussed the case with Dr. Okeefe from interventional radiology who did not feel that the patient was a good candidate for clot retrieval due to high risk for hemorrhagic transformation given the amount of cerebral edema and extent of infarct. Patient was given mannitol. This morning when I evaluated patient was in BiPAP with full facemask with a dense right hemiplegia with some spontaneous movement involving his left upper extremity. He was intubated and placed on mechanical ventilation for airway protection and hyperventilation in view of cerebral edema as well as for borderline respiratory status. Subsequently he underwent MRI brain which showed large left MCA territory infarct with some collateral flow. IVC filter was placed by interventional radiology after discussion with Dr. Murry, his oncologist as patient is now off heparin and is at risk for recurrent PE. 08/17: Remains sedated, orally intubated on mechanical ventilation. On 3% saline overnight. Head CT done this morning shows slight increase in cerebral edema in the area of left MCA territory infarct which appears more hypodense. Remains on Levophed 10mcg/min. Moves left side spontaneously however not following commands. Right hemiplegia persists 08/18: Remains sedated, orally intubated on mechanical ventilation. Remains on 3 % saline, Levophed. Awakens on lightening sedation and moves left side spontaneously. Right hemiplegia persists though fast food shift lead RN noticed some flickering movement in his fingers on the right. Objective Vital Signs Date Time Temp Pulse Resp B/P Pulse Ox O2 Delivery O2 Flow Rate FiO2 08/18/16 12:00 99.8 85 26 116/80 100 116/69 08/18/16 09:46 40 08/18/16 07:00 Mechanical Ventilator 08/17/16 19:00 15.00 Intake and Output 08/17/16 08/17/16 08/18/16 08:00 16:00 00:00 Intake Total 1124 ml 800 ml 1841 ml Output Total 450 ml 450 ml 475 ml Balance 674 ml 350 ml 1366 ml Result Diagram: 08/18/16 0400 08/18/16 0530 Other Results Microbiology Date/Time Procedure Status Source Growth 08/15/16 22:00 Legionella Antigen - Final Complete Urine Random Urine PRESUMPTIVE NEGATIVE FOR LEGIONELLA P... 08/15/16 22:00 Streptococcus pneumoniae Antigen (M - Final Complete Urine Random Urine PRESUMPTIVE NEGATIVE FOR STREPTOCOCCU... 08/16/16 16:55 Gram Stain - Final Complete Sputum Endotracheal 08/16/16 16:55 Sputum Culture - Final Complete Sputum Endotracheal HEAVY GROWTH NORMAL RESPIRATORY [place] Laboratory Tests Test 08/18/16 05:00 Blood Gas Puncture Site ART LINE Blood Gas Patient Temperature 98.6 Blood Gas HCO3 23 mmol/L (22-26) Blood Gas Base Excess -2.2 mmol/L (-2-2) Blood Gas Oxygen Saturation 94 % (90-100) Arterial Blood pH 7.35 (7.380-7.420) Arterial Blood Partial 42 mmHg (38-42) Pressure CO2 Arterial Blood Partial 87 mmHg Pressure O2 (61-120) Arterial Blood Oxygen Content 13.6 Vol % (12.0-20.0) Arterial Blood 1.4 % (0-4) Carboxyhemoglobin Arterial Blood Methemoglobin 1.0 % (0-2) Blood Gas Hemoglobin 10.2 G/DL (12.0-16.0) Oxygen Delivery Device VENTILATOR Blood Gas Ventilator Setting AC 26/550/5PEEP Blood Gas Inspired Oxygen 40 % Imaging Last [address] 08/17/16 0800 Signed Impressions: Service Date/Time: Wednesday, August 17, 2016 08:23 - CONCLUSION: 1. Evolving left MCA infarct. Galindo Vuong MD Head CTA 08/16/16 0207 Signed Impressions: Service Date/Time: Tuesday, August 16, 2016 04:10 - CONCLUSION: Thrombosed left middle cerebral artery with associated large subacute cerebral infarct. Neftaly Holden MD Neck CTA 08/16/16 0000 Signed Impressions: Service Date/Time: Tuesday, August 16, 2016 04:10 - CONCLUSION: 1. Extracranial carotids are normal. Also normal vertebral arteries. 2. Known malignant right upper lobe mass. Mediastinal and hilar lymphadenopathy seen in the upper chest. Neftaly Holden MD IVC Filter Placement X-Ray 08/16/16 0000 Signed Impressions: Service Date/Time: Tuesday, August 16, 2016 10:30 - CONCLUSION: Uncomplicated inferior vena cava filter placement as above. Israel Okeefe MD Head Magnetic Resonance Angiography 08/16/16 0000 Signed Impressions: Service Date/Time: Tuesday, August 16, 2016 10:27 - CONCLUSION: Markedly abnormal cerebral perfusion corresponding to the large MCA occlusion on the left. Harshad Campbell MD FACR Head CT 08/16/16 0000 Signed Impressions: Service Date/Time: Tuesday, August 16, 2016 00:56 - CONCLUSION: Large left sided cerebral edema as above, appearance most typical of a subacute middle cerebral artery distribution infarct. No bleed or definite mass. Neftaly Holden MD Chest X-Ray 08/16/16 0000 Signed Impressions: Service Date/Time: Tuesday, August 16, 2016 15:33 - CONCLUSION: 1. Uncomplicated line placement. No evidence of pneumothorax. 2. Decreasing right apical pneumothorax Irsael Okeefe MD Chest X-Ray 08/16/16 0000 Signed Impressions: Service Date/Time: Tuesday, August 16, 2016 08:15 - CONCLUSION: 1. Interval intubation. 2. Placement of nasogastric tube with the tip in the distal esophagus. This could be advanced at least 7 cm. 3. Mild interval increase in size the small right apical pneumothorax. 4. Increasing opacity in the right lung base most consistent with infiltrate. Barrett Holman MD Brain MRI 08/16/16 0000 Signed Impressions: Service Date/Time: Tuesday, August 16, 2016 10:27 - CONCLUSION: Large area of infarction involving the left Sylvian region. There is occlusion of the distal left MCA. There is some collateralization distally. Harshad Campbell MD FACR Chest X-Ray 08/15/16 1300 Signed Impressions: Service Date/Time: July 12:55 - CONCLUSION: Stable tiny right apical pneumothorax. Neftaly Rodriguez MD Chest X-Ray 08/15/16 1200 Signed Impressions: Service Date/Time: July 11:51 - CONCLUSION: There is a new tiny apical right pneumothorax. Neftaly Rodriguez MD Last 72 hours Impressions Chest X-Ray 08/15/16 1300 Signed Impressions: Service Date/Time: July 12:55 - CONCLUSION: Stable tiny right apical pneumothorax. Neftaly Rodriguez MD Chest X-Ray 08/15/16 1200 Signed Impressions: Service Date/Time: July 11:51 - CONCLUSION: There is a new tiny apical right pneumothorax. Neftaly Rodriguez MD Chest X-Ray 08/15/16 1030 Signed Impressions: Service Date/Time: July 10:20 - CONCLUSION: No pneumothorax following recent right lung biopsy. Neftaly Rodriguez MD Lung Biopsy CT 08/15/16 0000 Signed Impressions: Service Date/Time: July 08:22 - CONCLUSION: Uncomplicated CT guided biopsy of the right upper lobe lung mass. Neftaly Rodriguez MD Chest X-Ray 08/15/16 0000 Signed Impressions: Service Date/Time: July 07:12 - CONCLUSION: 1. No pneumothorax is visualized. Right chest wall [id number] distal tip is at the cavoatrial junction. 2. Right upper lobe pulmonary mass is again visualized. Neftaly Rodriguez MD CT Angiography 08/15/16 0000 Signed Impressions: Service Date/Time: July 13:22 - CONCLUSION: 1. There is acute appearing PE in the right lower lobe segmental and left lower lobe subsegmental pulmonary arteries. These PE are new since the prior CT from 07/09/2016. 2. Small right pneumothorax. 3. Right upper lobe pulmonary mass remains present and measures 4.9 cm. There is associated mediastinal, right hilar, and right supraclavicular lymphadenopathy suspicious for lymphatic spread of disease. Neftaly Rodriguez MD Objective Remarks HEENT/ Neuro: Sedated, orally intubated, Pallor present, no icterus, tongue/ mucosa moist. Pupils 3 mm bilaterally reacting actively to light. Opens eyes occasionally on lightening sedation. Dense right hemiplegia. Localizes with left upper and lower extremity. Neck: No JVD Chest/Pulm: on mech vent, good air entry bilaterally, minimal wheezing, no crackles. Right sided chest tube in place, no air leak noted. Port noted over right chest wall. CVS: S1-S2 regular, no murmur GI/abdomen: soft, nontender, bowel sounds sluggish Extremities: warm bilaterally, no edema Urinary Catheter: Yes Assessment to: Continue Date of Insertion: Aug 16, 2016 Line: Central Venous Catheter Side: Left Location: Jugular A/P Assessment and Plan Neuro: Left MCA territory ischemic infarct with cerebral edema Encephalopathy Bipolar Disorder with depression/anxiety Sedation with propofol/ fentanyl, daily sedation vacation. Neurochecks per protocol. Neurology and neurosurgery consulted. On mannitol and 3% saline. Decreased mannitol to 12.5 g every 12 hourly with hold for serum muscularity greater than 320. Continue antiplatelet therapy with aspirin. Repeat head CT pending Monitor neuro status with neuro checks per protocol CV: Hypotension Non-ST elevation [place] History of HTN, CAD with [place] s/p stent placement(2002) 2-D echo with no evidence of R heart strain. Difficult study due to tachycardia. EF 35-40%. Moderate mid to distal inferior hypokinesis and distal lateral hypokinesis. Trace tricuspid regurgitation. PA peak pressure 53 mmHg. Elevated cardiac enzymes/ EKG consistent with non-ST elevation [place]. On aspirin-currently on hold till cleared by neurosurgery. Cardiology following Continue Levophed for pressor support. Hold all antihypertensives. Gentle hydration with NS @ 50cc/hr Pulm: Right pneumothorax BL PEs on CTA COPD Exacerbation R Lung mass s/p biopsy R sided chest tube to suction Continue mechanical ventilation. Vent bundle, bronchodilators Decrease Solumedrol to 60mg Q8H Right sided chest tube in place, no air leak noted. End-tidal CO2 monitoring, attempt keeping PCO2 30-35mm Hg Renal/: NS to 50 ml/hr as patient with decreased EF Strict intake output, monitor and replete electrolites, follow BUN/ creatinine. ID: Continue with empiric abx (Levaquin). Follow-up sputum cultures and blood cultures Legionella and Streptococcus urinary antigens negative. Lactic acid normal Heme-onc: DVT/PE/right apical lung mass highly suspicious for malignancy Off anticoagulation with heparin due to large stroke with risk for hemorrhagic transformation. IVC filter placed . Continue aspirin. Started subcutaneous heparin on 08/17 after clearing with neurosurgery. Monitor CBC. Being followed by Dr. Murry from Oncology Endocrine: Hx of DM per chart review, not on medications at home SSI per protocol GI: Continue tube feeds with Glucerna and advance to goal as tolerated. Prophylaxis with Pepcid BID DVT prophylaxis: SCDs. Subcutaneous heparin after clearance by neurology/ neurosurgery Case discussed with Dr. Jean from neurology/neurosurgery/oncology-Dr. Murry on Long discussion with patient's family morning of 08/16 regarding current clinical status and plan of care and they voiced understanding and were agreeable. Also discussed palliative care consult which they are interested in as they did not want long-term mechanical ventilation if patient was not going to do well. On 08/18 : Updated family regarding current clinical status and plan of care and they voiced understanding and were agreeable. Condition critical. Time spent on critical care excluding procedures 40 minutes Joseph Harrell MD Aug 18, 2016 14:30
[2016-08-18] MEDS: LEVOFLOXACIN 750 MG PREMIX INJ 150 ML IV SCH (16:34)
--- NOTE | 2016-08-18 16:34 | PD.CARD.PN ---
Subjective Subjective Remarks Intubated, sedated, still on pressors Objective Medications Current Medications Medications (Trade) Dose Ordered Sig/Ebto Route Start Time Stop Time Status Last Admin (NS Flush) 2 ml UNSCH PRN IV FLUSH 08/15/16 07:15 (NS Flush) 2 ml UNSCH PRN IV FLUSH 08/15/16 07:15 (NS Flush) 5 ml Q21D IV FLUSH 08/15/16 07:15 08/16/16 08:39 (Heparin Central Flush) 500 units Q21D IV FLUSH 08/15/16 07:15 (NS Flush) 5 ml UNSCH PRN IV FLUSH 08/15/16 07:15 (Heparin Central Flush) 250 units UNSCH PRN IV FLUSH 08/15/16 07:15 (NS Flush) 2 ml BID IV FLUSH 08/15/16 21:00 08/18/16 08:26 (NS Flush) 2 ml UNSCH PRN IV FLUSH 08/15/16 12:15 (Xanax) 0.25 mg Q8H PRN PO 08/15/16 12:15 (Abilify) 15 mg HS PO 08/15/16 21:00 08/17/16 23:44 (Symbicort 160-4.5 Inh) 2 puff Q12HR INH 08/15/16 21:00 08/18/16 11:54 (Neurontin) 100 mg TID PO 08/15/16 13:00 08/18/16 12:22 (Puposky 10-325 Mg) 1 tab Q4H PRN PO 08/15/16 12:15 (Spiriva Inh) 18 mcg DAILY INH 08/16/16 09:00 (Desyrel) 100 mg HS PO 08/15/16 21:00 08/17/16 22:41 (PROzac) 60 mg DAILY PO 08/16/16 09:00 Hold (Tylenol) 650 mg Q4H PRN PO 08/15/16 12:15 (Zofran Inj) 4 mg Q6H PRN IV 08/15/16 12:15 (Colace) 100 mg BID PRN PO 08/15/16 12:15 (Mag-Al Plus Susp Liq) 30 ml Q6H PRN PO 08/15/16 12:15 (Tums Chew) 1,000 mg TID PRN CHEW 08/15/16 12:15 Miscellaneous Information 1 Q361D XX 08/15/16 13:15 08/15/16 19:00 (Chlorhexidine 2% Cloth) 3 pack Taper DAILY@04 TOP 08/16/16 04:00 08/12/17 03:59 08/18/16 04:00 (Chlorhexidine 2% Cloth) 3 pack UNSCH PRN TOP 08/15/16 13:15 (Heparin Inj) 5,000 units UNSCH PRN IV 08/15/16 19:15 Hold Heparin Sodium (Porcine) 2500 units 2,500 units UNSCH PRN IV 08/15/16 19:15 Hold Heparin Sodium/ Dextrose 250 ml @ 0 mls/hr TITRATE IV 08/15/16 13:15 Hold 08/15/16 15:22 (Levaquin 750 Mg Premix Inj) 150 ml @ 100 mls/hr Q24H IV 08/15/16 16:00 08/17/16 16:00 (Apresoline Inj) 10 mg Q2HR PRN IV PUSH 08/15/16 16:00 08/16/16 04:36 (Pepcid Inj) 20 mg Q12H IV PUSH 08/15/16 16:00 08/18/16 04:34 (D50w (Vial) Inj) 25 ml UNSCH PRN IV PUSH 08/15/16 17:30 (Glucagon Inj) 1 mg UNSCH PRN OTHER 08/15/16 17:30 (Dilantin Inj) 100 mg Q8HR IV 08/16/16 14:00 08/18/16 14:42 Chlorhexidine Gluconate 15 ml 15 ml BID@08,20 MT 08/16/16 20:00 08/18/16 08:00 Propofol 100 ml @ 0 mls/hr TITRATE IV 08/16/16 15:30 08/18/16 12:21 (Levophed-Dextrose Drip) 250 ml @ 0 mls/hr TITRATE IV 08/16/16 15:30 08/18/16 14:43 Terbutaline Sulfate 1 mg 1 mg UNSCH PRN SQ 08/16/16 15:15 Sodium Chloride 1,000 ml @ 50 mls/hr Q20H IV 08/16/16 15:30 08/18/16 06:35 (fentaNYL DRIP) 250 ml @ 0 mls/hr TITRATE IV 08/17/16 10:45 08/18/16 02:29 (NovoLOG SUPPLEMENTAL SCALE) 1 Q6HR SQ 08/17/16 12:00 08/18/16 12:22 (SoluMEDROL INJ) 60 mg Q8HR IVP 08/17/16 14:00 08/18/16 14:42 (Aspirin Chew) 162 mg DAILY CHEW 08/17/16 12:15 08/18/16 08:26 (Heparin Inj) 5,000 units Q12HR SQ 08/17/16 12:15 08/18/16 08:25 Mannitol 12.5 gm 12.5 gm Q12HR IV 08/18/16 21:00 (Sodium Chloride 3% Inj) 500 ml @ 25 mls/hr Q20H IV 08/18/16 11:15 08/18/16 12:21 (Senna Liq) 8.8 mg DAILY OG-TUBE 08/18/16 11:30 08/18/16 12:24 Vital Signs / I&O Vital Signs Date Time Temp Pulse Resp B/P Pulse Ox O2 Delivery O2 Flow Rate FiO2 08/18/16 16:00 87 08/18/16 16:00 99.6 87 26 110/75 97 111/67 08/18/16 14:47 97 40 08/18/16 14:00 88 08/18/16 12:00 99.8 85 26 116/80 100 116/69 08/18/16 12:00 85 08/18/16 10:00 89 08/18/16 09:46 100 40 08/18/16 09:00 99 40 08/18/16 08:00 98.6 89 32 118/85 100 131/82 08/18/16 08:00 89 08/18/16 08:00 89 118/85 131/82 08/18/16 07:00 100 Mechanical Ventilator 40 08/18/16 06:00 101 08/18/16 04:00 98.4 105 25 126/86 99 140/87 08/18/16 04:00 105 08/18/16 03:41 99 40 08/18/16 02:00 88 08/18/16 00:00 98.4 87 26 115/82 97 112/68 08/18/16 00:00 87 08/17/16 23:23 98 40 08/17/16 22:00 84 08/17/16 20:18 95 40 08/17/16 20:00 98.8 86 22 112/81 96 109/67 08/17/16 20:00 86 08/17/16 19:00 Mechanical Ventilator 15.00 40 08/17/16 18:00 87 I/O 08/17/16 08/17/16 08/17/16 08/18/16 08/18/16 08/18/16 07:00 15:00 23:00 07:00 15:00 23:00 Intake Total 1124 ml 800 ml 1841 ml 876 ml 1059 ml Output Total 450 ml 450 ml 475 ml 315 ml 485 ml Balance 674 ml 350 ml 1366 ml 561 ml 574 ml Intake IV Total 1124 ml 800 ml 1620 ml 612 ml 750 ml Tube Feeding 221 ml 164 ml 249 ml Other 100 ml 60 ml Output Urine Total 450 ml 350 ml 475 ml 275 ml 400 ml Stool Total 0 ml 0 ml Tube Feeding Residual Discard 0 ml Chest Tube Drainage Total 0 ml 100 ml 0 ml 40 ml 85 ml # Bowel Movements 0 0 0 Physical Exam GENERAL: Intubated, sedated SKIN: Warm and dry. HEAD: Normocephalic. EYES: No scleral icterus. No injection or drainage. NECK: Supple, trachea midline. No JVD or lymphadenopathy. CARDIOVASCULAR: Regular rate and rhythm without murmurs, gallops, or rubs. RESPIRATORY: Breath sounds equal bilaterally. No accessory muscle use. GASTROINTESTINAL: Abdomen soft, non-tender, nondistended. MUSCULOSKELETAL: No cyanosis, or edema. Laboratory Laboratory Tests Test 08/17/16 08/17/16 08/18/16 08/18/16 17:00 23:40 04:00 05:00 Sodium Level 146 MEQ/L 147 MEQ/L Serum Osmolality 318 MOSM/KG 325 MOSM/KG White Blood Count 20.3 TH/MM3 Red Blood Count 3.77 MIL/MM3 Hemoglobin 11.4 GM/DL Hematocrit 34.9 % Mean Corpuscular Volume 92.7 FL Mean Corpuscular Hemoglobin 30.1 PG Mean Corpuscular Hemoglobin 32.5 % Concent Red Cell Distribution Width 14.3 % Platelet Count 166 TH/MM3 Mean Platelet Volume 9.0 FL Neutrophils (%) (Auto) 88.8 % Lymphocytes (%) (Auto) 4.7 % Monocytes (%) (Auto) 6.4 % Eosinophils (%) (Auto) 0.0 % Basophils (%) (Auto) 0.1 % Neutrophils # (Auto) 18.0 TH/MM3 Lymphocytes # (Auto) 0.9 TH/MM3 Monocytes # (Auto) 1.3 TH/MM3 Eosinophils # (Auto) 0.0 TH/MM3 Basophils # (Auto) 0.0 TH/MM3 CBC Comment DIFF FINAL Differential Comment Blood Gas Puncture Site ART LINE Blood Gas Patient Temperature 98.6 Blood Gas HCO3 23 mmol/L Blood Gas Base Excess -2.2 mmol/L Blood Gas Oxygen Saturation 94 % Arterial Blood pH 7.35 Arterial Blood Partial 42 mmHg Pressure CO2 Arterial Blood Partial 87 mmHg Pressure O2 Arterial Blood Oxygen Content 13.6 Vol % Arterial Blood 1.4 % Carboxyhemoglobin Arterial Blood Methemoglobin 1.0 % Blood Gas Hemoglobin 10.2 G/DL Oxygen Delivery Device VENTILATOR Blood Gas Ventilator Setting AC 26/550/5PEEP Blood Gas Inspired Oxygen 40 % Test 08/18/16 08/18/16 05:30 12:57 Sodium Level 147 MEQ/L 148 MEQ/L Potassium Level 4.8 MEQ/L Chloride Level 113 MEQ/L Carbon Dioxide Level 30.0 MEQ/L Anion Gap 4 MEQ/L Blood Urea Nitrogen 26 MG/DL Creatinine 1.10 MG/DL Estimat Glomerular Filtration 71 ML/MIN Rate Random Glucose 169 MG/DL Serum Osmolality 322 MOSM/KG 321 MOSM/KG Calcium Level 7.9 MG/DL Phosphorus Level 3.3 MG/DL Magnesium Level 2.7 MG/DL Total Bilirubin 0.2 MG/DL Aspartate Amino Transf 16 U/L (AST/SGOT) Alanine Aminotransferase 33 U/L (ALT/SGPT) Alkaline Phosphatase 46 U/L Total Protein 5.7 GM/DL Albumin 2.6 GM/DL Imaging Last Impressions Chest X-Ray 08/18/16 0600 Signed Impressions: Service Date/Time: Thursday, August 18, 2016 03:13 - CONCLUSION: No perceptible pneumothorax. Otherwise no change. Neftaly Holden MD Head CT 08/17/16 0800 Signed Impressions: Service Date/Time: Wednesday, August 17, 2016 08:23 - CONCLUSION: 1. Evolving left MCA infarct. Galindo Vuong MD Head CTA 08/16/16 0207 Signed Impressions: Service Date/Time: Tuesday, August 16, 2016 04:10 - CONCLUSION: Thrombosed left middle cerebral artery with associated large subacute cerebral infarct. Neftaly Holden MD Neck CTA 08/16/16 Signed Impressions: Service Date/Time: Tuesday, August 16, 2016 04:10 - CONCLUSION: 1. Extracranial carotids are normal. Also normal vertebral arteries. 2. Known malignant right upper lobe mass. Mediastinal and hilar lymphadenopathy seen in the upper chest. Neftaly Holden MD IVC Filter Placement X-Ray 08/16/16 Signed Impressions: Service Date/Time: Tuesday, August 16, 2016 10:30 - CONCLUSION: Uncomplicated inferior vena cava filter placement as above. Israel Okeefe MD Head Magnetic Resonance Angiography 08/16/16 Signed Impressions: Service Date/Time: Tuesday, August 16, 2016 10:27 - CONCLUSION: Markedly abnormal cerebral perfusion corresponding to the large MCA occlusion on the left. Harshad Campbell MD FACR Brain MRI 08/16/16 Signed Impressions: Service Date/Time: Tuesday, August 16, 2016 10:27 - CONCLUSION: Large area of infarction involving the left Sylvian region. There is occlusion of the distal left MCA. There is some collateralization distally. Harshad Campbell MD FACR Lung Biopsy CT 08/15/16 Signed Impressions: Service Date/Time: July 08:22 - CONCLUSION: Uncomplicated CT guided biopsy of the right upper lobe lung mass. Neftaly Rodriguez MD CT Angiography 08/15/16 Signed Impressions: Service Date/Time: July 13:22 - CONCLUSION: 1. There is acute appearing PE in the right lower lobe segmental and left lower lobe subsegmental pulmonary arteries. These PE are new since the prior CT from 07/09/2016. 2. Small right pneumothorax. 3. Right upper lobe pulmonary mass remains present and measures 4.9 cm. There is associated mediastinal, right hilar, and right supraclavicular lymphadenopathy suspicious for lymphatic spread of disease. Neftaly Rodriguez MD Assessment and Plan Problem List: (1) Non-STEMI (non-ST elevated myocardial infarction) (2) Stroke (3) Pneumothorax (4) Pulmonary embolism (5) Cardiomyopathy (6) Lung mass Assessment and Plan Continue ICU care. Continue pressors, wean as tolerated. Neuro and NS eval, f/u CT today. Started ASA. Full anticoagulation contraindicated. Wean vent as tolerated. D/w pt's family. Varghese May MD Aug 18, 2016 16:34
[2016-08-18] MEDS: traZODone HCL 100 MG TAB PO SCH (19:33)
[2016-08-18] MEDS: ARIPiprazole 15 MG TAB PO SCH (19:33)
--- NOTE | 2016-08-18 21:12 | RADRPT ---
EXAM DATE/TIME: 08/18/2016 20:37 [facility] COMPARISON: CT BRAIN W/O CONTRAST, August 16, 2016, 0:56. CT BRAIN W/O CONTRAST, August 17, 2016, 8:23. INDICATIONS : Follow up left MCA infarct; cerebral edema. RADIATION DOSE: 56.35 CTDIvol (mGy) MEDICAL HISTORY : Cardiovascular disease. Deep venous thrombosis. lung mass SURGICAL HISTORY : None. ENCOUNTER: Subsequent ACUITY: 2 days PAIN SCALE: Non-responsive LOCATION: cranial TECHNIQUE: Multiple contiguous axial images were obtained of the head. Using automated exposure control and adj ustment of the mA and/or kV according to patient size, radiation dose was kept as low as reasonably a chievable to obtain optimal diagnostic quality images. FINDINGS: The left MCA stroke is evolving into an area of encephalomalacia. There is no hemorrhage or mass effe ct. CONCLUSION: Evolving left MCA stroke into an area of encephalomalacia involving the left frontal temporal and par ietal lobes. Diane Guzman MD on August 18, 2016 at 21:09 Board Certified Radiologist. This report was verified electronically.
[2016-08-18] MEDS: ACETAMINOPHEN 325 MG TAB PO PRN (22:49)
[2016-08-19] VITALS (18 sets, daily range): BP systolic 95–140; BP diastolic 52–83; PULSE 62–83; RESP 25–28; TEMP 99.1–102.1; O2SAT 93–100
[2016-08-19] MEDS: RESP: ALBUTEROL 2.5 MG/IPRATROPIUM 0.5 MG NEB (SCH) NEB ×6 (03:35→23:32)
[2016-08-19] MEDS: CHLORHEXIDINE GLUCONATE 2 % 1 PACK (2 CLOTHS) TOP SCH (04:00)
[2016-08-19] MEDS: methylPREDNISolone SOD SUCC 125 MG/2 ML VIAL IVP SCH ×3 (05:10→20:33)
[2016-08-19] MEDS: INSULIN ASPART SUPPLEMENTAL SCALE SQ SCH ×4 (05:10→23:14)
[2016-08-19] MEDS: PHENYTOIN INJ 100 MG/2 ML VIAL IV SCH ×3 (05:10→20:32)
[2016-08-19] MEDS: SODIUM CHLOR 0.9% 1000 ML INJ 1,000 ML IV SCH (05:11)
[2016-08-19] MEDS: fentaNYL DRIP 250 ML IV SCH ×2 (05:11→12:07)
[2016-08-19] MEDS: FAMOTIDINE 20 MG/2 ML VIAL IV PUSH SCH ×2 (05:12→17:25)
[2016-08-19 05:15] LABS: AUTOMATED NEUTROPHIL # 8.3 TH/MM3 (1.8-7.7); BASOPHIL % 0.3 % (0.0-2.0); HEMATOCRIT 31.3 % (39.0-51.0); LYMPH % 7.7 % (9.0-44.0); LYMPHOCYTE # 0.8 TH/MM3 (1.0-4.8); MEAN CELL VOLUME 93.4 FL (80.0-100.0); MEAN CORPUSCULAR HEMOGLOBIN 30.9 PG (27.0-34.0); MEAN CORPUSCULAR HGB CONC 33.1 % (32.0-36.0); MONO % 7.6 % (0.0-8.0); NEUT % 84.4 % (16.0-70.0); PLATELET COUNT 116 TH/MM3 (150-450); RED BLOOD COUNT 3.35 MIL/MM3 (4.50-5.90); RED CELL DISTRIBUTION WIDTH 14.5 % (11.6-17.2); WHITE BLOOD COUNT 9.8 TH/MM3 (4.0-11.0)
[2016-08-19 05:19] LABS: HEMO FLAGS AUTO DIFF
[2016-08-19 05:30] LABS: SODIUM (NA) 149 MEQ/L (136-145)
[2016-08-19 06:54] LABS: PLATELET ESTIMATE SMEAR LOW (NORMAL); PLATELET MORPHOLOGY NORMAL (NORMAL); SCAN/DIFF AUTO DIFF CONFIRMED
[2016-08-19] MEDS: 3% SALINE INJ 500 ML IV SCH (07:15)
[2016-08-19 07:31] LABS: AST (GOT) 22 U/L (15-37); BLOOD UREA NITROGEN 32 MG/DL (7-18); GLOMERULAR FILTRATION RATE 69 ML/MIN (>89); MAGNESIUM 2.7 MG/DL (1.5-2.5); TOTAL BILIRUBIN ADULT 0.2 MG/DL (0.2-1.0)
[2016-08-19 07:50] LABS: ALKALINE PHOSPHATASE 42 U/L (45-117); ALT (GPT) 34 U/L (12-78); ANION GAP 7 MEQ/L (5-15); BICARBONATE 30.3 MEQ/L (21.0-32.0); CHLORIDE 112 MEQ/L (98-107); POTASSIUM 4.6 MEQ/L (3.5-5.1)
[2016-08-19] MEDS: CHLORHEXIDINE 0.12% (ORAL KIT) 15 ML CUP MT SCH ×2 (08:00→20:34)
[2016-08-19] MEDS: BUDESONIDE-FORMOTEROL 160/4.5 MCG INHALER INH SCH ×2 (08:59→20:06)
[2016-08-19] MEDS: TIOTROPIUM BROMIDE 18 MCG INH INH SCH (09:00)
[2016-08-19] MEDS: MANNITOL 12.5 GM/50 ML VIAL IV SCH (09:00)
[2016-08-19] MEDS: GABAPENTIN 100 MG CAP PO SCH ×3 (09:14→17:26)
[2016-08-19] MEDS: PROPOFOL 1000 MG/100 ML INJ 100 ML IV SCH ×3 (09:14→23:23)
[2016-08-19] MEDS: ASPIRIN 81 MG CHEW TAB CHEW SCH (09:14)
[2016-08-19] MEDS: SENNOSIDES SYRUP 8.8 MG/5 ML CUP OG-TUBE SCH (09:14)
[2016-08-19] MEDS: HEPARIN SODIUM - SQ 10,000 UNITS/ML VIAL SQ SCH ×2 (09:14→20:31)
[2016-08-19] MEDS: SODIUM CHLORIDE 0.9% FLUSH 10 ML FLUSH IV FLUSH SCH ×2 (09:15→20:33)
[2016-08-19] MEDS: ACETAMINOPHEN 325 MG TAB PO PRN (09:52)
--- NOTE | 2016-08-19 09:59 | PD.ONC.PN ---
Subjective Subjective Remarks Tmax 101.4 overnight. Intubated, sedated. Niece at bedside. Tolerating prophylactic heparin and antiplatelet therapy. per nursing reports some movement of right hand. Objective Data Date Time Temp Pulse Resp B/P Pulse Ox O2 Delivery O2 Flow Rate FiO2 08/19/16 08:10 97 40 08/19/16 07:00 Mechanical Ventilator 15.00 40 08/19/16 06:00 71 111/66 08/19/16 06:00 71 08/19/16 04:00 99.9 79 28 118/78 100 123/73 08/19/16 04:00 79 08/19/16 03:35 95 40 08/19/16 02:00 83 08/19/16 00:00 99.1 75 25 105/68 97 106/62 08/19/16 00:00 75 08/18/16 23:25 98 40 08/18/16 22:00 73 08/18/16 20:25 100 08/18/16 20:00 101.4 80 26 109/68 96 105/58 08/18/16 20:00 80 08/18/16 19:54 96 40 08/18/16 19:00 Mechanical Ventilator 15.00 40 08/18/16 18:00 85 08/18/16 18:00 85 110/75 115/66 08/18/16 16:00 87 08/18/16 16:00 99.6 87 26 110/75 97 111/67 08/18/16 14:47 97 40 08/18/16 14:00 88 08/18/16 12:00 99.8 85 26 116/80 100 116/69 08/18/16 12:00 85 08/18/16 10:00 89 08/19/16 08/19/16 08/19/16 07:00 15:00 23:00 Intake Total 2310 ml Output Total 575 ml Balance 1735 ml Result Diagram: 08/19/16 0455 08/19/16 0455 Laboratory Results Laboratory Tests Test 08/18/16 08/18/16 08/19/16 08/19/16 12:57 17:33 00:15 04:55 Sodium Level 148 MEQ/L 148 MEQ/L 148 MEQ/L 149 MEQ/L Serum Osmolality 321 MOSM/KG 320 MOSM/KG 318 MOSM/KG 323 MOSM/KG White Blood Count 9.8 TH/MM3 Red Blood Count 3.35 MIL/MM3 Hemoglobin 10.4 GM/DL Hematocrit 31.3 % Mean Corpuscular Volume 93.4 FL Mean Corpuscular Hemoglobin 30.9 PG Mean Corpuscular Hemoglobin 33.1 % Concent Red Cell Distribution Width 14.5 % Platelet Count 116 TH/MM3 Mean Platelet Volume 8.6 FL Neutrophils (%) (Auto) 84.4 % Lymphocytes (%) (Auto) 7.7 % Monocytes (%) (Auto) 7.6 % Eosinophils (%) (Auto) 0.0 % Basophils (%) (Auto) 0.3 % Neutrophils # (Auto) 8.3 TH/MM3 Lymphocytes # (Auto) 0.8 TH/MM3 Monocytes # (Auto) 0.7 TH/MM3 Eosinophils # (Auto) 0.0 TH/MM3 Basophils # (Auto) 0.0 TH/MM3 CBC Comment AUTO DIFF Differential Comment AUTO DIFF CONFIRMED Platelet Estimate LOW Platelet Morphology Comment NORMAL Potassium Level 4.6 MEQ/L Chloride Level 112 MEQ/L Carbon Dioxide Level 30.3 MEQ/L Anion Gap 7 MEQ/L Blood Urea Nitrogen 32 MG/DL Creatinine 1.12 MG/DL Estimat Glomerular Filtration 69 ML/MIN Rate Random Glucose 143 MG/DL Calcium Level 7.9 MG/DL Phosphorus Level 3.1 MG/DL Magnesium Level 2.7 MG/DL Total Bilirubin 0.2 MG/DL Aspartate Amino Transf 22 U/L (AST/SGOT) Alanine Aminotransferase 34 U/L (ALT/SGPT) Alkaline Phosphatase 42 U/L Total Protein 5.5 GM/DL Albumin 2.5 GM/DL Culture Results Microbiology Date/Time Procedure Status Source Growth 08/16/16 15:01 Aerobic Blood Culture - Preliminary Resulted Blood Peripheral NO GROWTH IN 2 DAYS 08/16/16 15:01 Anaerobic Blood Culture - Preliminary Resulted Blood Peripheral NO GROWTH IN 2 DAYS 08/16/16 15:45 Aerobic Blood Culture - Preliminary Resulted Blood Peripheral NO GROWTH IN 2 DAYS 08/16/16 15:45 Anaerobic Blood Culture - Preliminary Resulted Blood Peripheral NO GROWTH IN 2 DAYS 08/16/16 16:55 Gram Stain - Final Complete Sputum Endotracheal 08/16/16 16:55 Sputum Culture - Final Complete Sputum Endotracheal HEAVY GROWTH NORMAL RESPIRATORY [place] Administered Medications Medications (Trade) Dose Ordered Sig/Beto Route PRN Reason Start Time Stop Time Status Last Admin Dose Admin Sodium Chloride (NS Flush) 5 ml Q21D IV FLUSH 08/15/16 07:15 08/16/16 08:39 Sodium Chloride (NS Flush) 2 ml BID IV FLUSH 08/15/16 21:00 08/19/16 09:15 Aripiprazole (Abilify) 15 mg HS PO 08/15/16 21:00 08/18/16 19:33 Budesonide/ Formoterol Fumarate (Symbicort 160-4.5 Inh) 2 puff Q12HR INH 08/15/16 21:00 08/19/16 08:59 Gabapentin (Neurontin) 100 mg TID PO 08/15/16 13:00 08/19/16 09:14 Trazodone HCl (Desyrel) 100 mg HS PO 08/15/16 21:00 08/18/16 19:33 Acetaminophen (Tylenol) 650 mg Q4H PRN PO Temp > 100.4 08/15/16 12:15 08/19/16 09:52 Miscellaneous Information 1 Q361D XX 08/15/16 13:15 08/15/16 19:00 Chlorhexidine Gluconate 3 pack 3 pack Taper DAILY@04 TOP 08/16/16 04:00 08/12/17 03:59 08/19/16 04:00 Heparin Sodium/ Dextrose 250 ml @ 0 mls/hr TITRATE IV 08/15/16 13:15 Hold 08/15/16 15:22 Levofloxacin/ Dextrose (Levaquin 750 Mg Premix Inj) 150 ml @ 100 mls/hr Q24H IV 08/15/16 16:00 08/18/16 16:34 Hydralazine HCl (Apresoline Inj) 10 mg Q2HR PRN IV PUSH BP >150/90 08/15/16 16:00 08/16/16 04:36 Famotidine (Pepcid Inj) 20 mg Q12H IV PUSH 08/15/16 16:00 08/19/16 05:12 Phenytoin Sodium (Dilantin Inj) 100 mg Q8HR IV 08/16/16 14:00 08/19/16 05:10 Chlorhexidine Gluconate 15 ml 15 ml BID@08,20 MT 08/16/16 20:00 08/19/16 08:00 Propofol 100 ml @ 0 mls/hr TITRATE IV 08/16/16 15:30 5/1/17 09:14 Norepinephrine Bitartrate 250 ml @ 0 mls/hr TITRATE IV 08/16/16 15:30 08/18/16 14:43 Sodium Chloride 1,000 ml @ 50 mls/hr Q20H IV 08/16/16 15:30 08/19/16 05:11 Fentanyl Citrate (fentaNYL DRIP) 250 ml @ 0 mls/hr TITRATE IV 08/17/16 10:45 08/19/16 05:11 Insulin Aspart (NovoLOG SUPPLEMENTAL SCALE) 1 Q6HR SQ 08/17/16 12:00 08/19/16 05:10 Methylprednisolone Sodium Succinate (SoluMEDROL INJ) 60 mg Q8HR IVP 08/17/16 14:00 08/19/16 05:10 Aspirin (Aspirin Chew) 162 mg DAILY CHEW 08/17/16 12:15 08/19/16 09:14 Heparin Sodium (Porcine) 5000 units 5,000 units Q12HR SQ 08/17/16 12:15 08/19/16 09:14 Sodium Chloride (Sodium Chloride 3% Inj) 500 ml @ 25 mls/hr Q20H IV 08/18/16 11:15 08/18/16 12:21 Sennosides (Senna Liq) 8.8 mg DAILY OG-TUBE 08/18/16 11:30 08/19/16 09:14 Objective Remarks GENERAL: Sedated intubated male, lying supine in bed SKIN: Warm and dry. HEAD: Normocephalic. EYES: No injection or drainage. NECK: Supple, trachea midline. CARDIOVASCULAR: +S1/S2 RESPIRATORY: anterior jama clear. on mechanical ventilation. GASTROINTESTINAL: Abdomen nondistended. EXTREMITIES: No cyanosis NEUROLOGICAL: intubated, sedated. Assessment/Plan Problem List: (1) Lung cancer Status: Acute Plan: 08/19: await pathology. unlikely to be able to treat, due to comorbidities. -- Right upper lobe lung mass measured 4.4 cm with mediastinal, right supraclavicular and right hilar adenopathy. --went to [facility] and had PET scan done which did not show any other distant metastasis. --Clinically this is suspicious for primary lung cancer --> suspect non-small- cell lung cancer. Based on the CT scan finding he is clinically stage IIIA. --biopsy on 08/15--> pathology is pending. (2) Pulmonary embolism Status: Acute Plan: 08/19: has IVC filter. on heparin prophylaxis and antiplatelet therapy. --s/p IVC filter placement (3) Respiratory failure Status: Acute Plan: --on mechanical ventilation --developed a small pneumothorax after the biopsy. ++bilateral subsegmental pulmonary embolism. ++left lower extremity deep venous thrombosis dx more than a month ago --was started on ac then found to have massive stroke with cerebral edema Assessment 50y/o male with lung mass admitted with respiratory failure. History: (from original consult): had a port placement on Friday and reportedly doing well, yesterday when the he went for biopsy of lung mass. --was having shortness of breath after the biopsy and he was found to have pneumothorax and he developed worsening respiratory distress. --CT angiogram was done which showed bilateral subsegmental pulmonary embolism. --was admitted to the ICU. A chest tube was placed, reportedly in the evening he developed right-sided paralysis and was found to have a major stroke in the left hemisphere. h/o COPD, LLE DVT, osteopenia Plan 1. await pathology 2. continue antiplatelet therapy, anticoagulation 3. supportive care Attending Statement The exam, history, and the medical decision-making described in the above note were completed with the assistance of the mid-level provider. I reviewed and agree with the findings presented. I attest that I had a [id number] encounter with the patient on the same day, and personally performed and documented my assessment and findings in the medical record. remain sedated on vent. Right hemiplegia. CT showed evolving stroke but no hemorrhage. Continue subQ heparin. S/p IVC filter placement. Path from lung biopsy pending. Continue supportive care. Mera Souza August 19, 2016 09:59 Kris Murry MD August 19, 2016 15:47
[2016-08-19 10:36] LABS: BACTERIA, URINE OCC /hpf; BLOOD, URINE SMALL (NEG); COMMENT (UR) CATH-CULTURE IND; CULTURE IF INDICATED CATH CULTURE IND; GLUCOSE,URINE NEG (NEG); KETONE, URINE NEG (NEG); MUCUS URINE FEW /lpf (OCC); NITRITE,URINE NEG (NEG); PH, URINE 5.5 (5.0-8.5); SQUAMOUS EPITHELIAL CELL URINE <1 /hpf (0-5); URINE COLOR YELLOW (YELLW/STRAW)
[2016-08-19] MEDS: DOCUSATE SODIUM 100 MG CAP PO PRN (13:14)
[2016-08-19 13:50] LABS: THROMBIN TIME FOR LA 25 sec (13-19)
--- NOTE | 2016-08-19 14:36 | HHI.HCPN ---
Reason for visit a. To assist with evaluation and management of symptoms including: Dyspnea, pain b. To assist medical decision maker(s) with: better understanding of current medical conditions; weighing benefits/burdens of medical treatment options; making medical treatment decisions. Subjective/Interval History Mr Cooley remains sedated w Fentanyl and Diprivan. On Vent with Peep 5/FiO2. VS are stable w Tmax of 102.1. He is on hemodynamic monitoring. WBCs yesterday were 22 but today are 9.8. Urine, sputum and blood cultures are pending. Hgb is dropping and platelets are 116. There is no overt evidence of bleeding. He was started on aspirin and subcutaneous heparin on 08/17. CT remains to wall suction. Per RN, he will awaken on lightening sedation and will move left side spontaneously. Neurosurgery deems that he is not a candidate for thrombectomy or tPA. Head CT from 08/18 showed evolving edema along the left MCA territory. Aunt and niece at bedside report just left. Advance Directives Living Will: Never completed Health Care Surrogate: Never completed Durable Power of Palm Gatherer: Never completed Advance Directive Specifics Health Care Surrogate(s): Spouse, Erika Cooley, Objective Vital Signs Date Time Temp Pulse Resp B/P Pulse Ox O2 Delivery O2 Flow Rate FiO2 08/19/16 12:30 97 40 08/19/16 10:00 74 08/19/16 08:10 97 40 08/19/16 08:00 102.1 74 28 105/69 100 110/68 08/19/16 08:00 74 08/19/16 07:00 Mechanical Ventilator 15.00 40 08/19/16 06:00 71 111/66 08/19/16 06:00 71 08/19/16 04:00 99.9 79 28 118/78 100 123/73 08/19/16 04:00 79 08/19/16 03:35 95 40 08/19/16 02:00 83 08/19/16 00:00 99.1 75 25 105/68 97 106/62 08/19/16 00:00 75 08/18/16 23:25 98 40 08/18/16 22:00 73 08/18/16 20:25 100 08/18/16 20:00 101.4 80 26 109/68 96 105/58 08/18/16 20:00 80 08/18/16 19:54 96 40 08/18/16 19:00 Mechanical Ventilator 15.00 40 08/18/16 18:00 85 08/18/16 18:00 85 110/75 115/66 08/18/16 16:00 87 08/18/16 16:00 99.6 87 26 110/75 97 111/67 08/18/16 14:47 97 40 Intake & Output 08/19/16 08/19/16 07:00 19:00 Intake Total 2310 ml Output Total 975 ml 0 ml Balance 1335 ml 0 ml Intake IV Total 1735 ml Tube Feeding 495 ml Tube Irrigant 80 ml Output Urine Total 950 ml Stool Total 0 ml Tube Feeding Residual Discard 0 ml Chest Tube Drainage Total 25 ml Physical Exam CONSTITUTIONAL/GENERAL: This is an adequately nourished patient, sedated on the ventilator TUBES/LINES/DRAINS: ET tube, Simon catheter, chest tube to right mid chest wall , SKIN: No jaundice, rashes, or lesions. Ecchymoses on upper extremities. No wounds seen anteriorly. Skin temperature appropriate. Not diaphoretic. HEAD: Atraumatic. Normocephalic. EYES: Pupils equal and round and reactive. . No scleral icterus. No injection or drainage. ENT: Nose without bleeding or purulent drainage. Throat without visible erythema , exudates, masses, or lesions. NECK: Trachea midline. Supple, nontender. No palpable thyroid enlargement or nodularity. CARDIOVASCULAR: Regular rate and rhythm without murmurs, gallops, or rubs. No JVD. Peripheral pulses symmetric. RESPIRATORY/CHEST: Chest tube to right mid chest wall. Symmetric, unlabored respirations. Clear to auscultation; equal bilaterally. No wheezes, rales, or rhonchi. GASTROINTESTINAL: Abdomen soft, non-tender, nondistended. No hepato-splenomegaly , or palpable masses. No guarding. Bowel sounds present. GENITOURINARY: Without palpable bladder distension. Simon catheter in place. MUSCULOSKELETAL: Extremities without clubbing, cyanosis, or edema. No joint tenderness or effusion noted. No calf tenderness. No mottling or clubbing. LYMPHATICS: No palpable cervical or supraclavicular adenopathy. NEUROLOGICAL: Sedated on a ventilator. PSYCHIATRIC: Unable to assess due to clinical status Diagnostic Tests Laboratory Laboratory Tests Test 08/16/16 08/16/16 08/16/16 08/16/16 14:36 14:40 16:58 21:00 Total Creatine Kinase 190 U/L (39-308) Creatine Kinase MB 16.9 NG/ML (0.5-3.6) Troponin I 4.84 NG/ML 5.70 NG/ML (0.02-0.05) (0.02-0.05) Blood Gas Puncture Site ART LINE Blood Gas Patient Temperature 98.6 Blood Gas HCO3 25 mmol/L (22-26) Blood Gas Base Excess 1.0 mmol/L (-2-2) Blood Gas Oxygen Saturation 96 % (90-100) Arterial Blood pH 7.40 (7.380-7.420) Arterial Blood Partial 42 mmHg (38-42) Pressure CO2 Arterial Blood Partial 138 mmHg Pressure O2 (61-120) Arterial Blood Oxygen Content 17.3 Vol % (12.0-20.0) Arterial Blood 1.3 % (0-4) Carboxyhemoglobin Arterial Blood Methemoglobin 1.3 % (0-2) Blood Gas Hemoglobin 12.6 G/DL (12.0-16.0) Oxygen Delivery Device VENTILATOR Blood Gas Ventilator Setting A/C 26/600/5 PEEP Blood Gas Inspired Oxygen 50 % Sodium Level 141 MEQ/L 143 MEQ/L (136-145) (136-145) Serum Osmolality 311 MOSM/KG 317 MOSM/KG (275-295) (275-295) Lactic Acid Level 2.7 mmol/L 1.8 mmol/L (0.4-2.0) (0.4-2.0) Triglycerides Level 140 MG/DL (42-150) Cholesterol Level 165 MG/DL (120-200) LDL Cholesterol 100 MG/DL (0-99) HDL Cholesterol 37.0 MG/DL (40.0-60.0) Cholesterol/HDL Ratio 4.45 RATIO Phenytoin (Dilantin) Level 14.0 MCG/ML (10.0-20.0) Test 08/17/16 08/17/16 08/17/16 08/17/16 03:10 04:35 10:32 17:00 Sodium Level 144 MEQ/L 146 MEQ/L (136-145) (136-145) Potassium Level 4.8 MEQ/L (3.5-5.1) Chloride Level 111 MEQ/L (98-107) Carbon Dioxide Level 26.0 MEQ/L (21.0-32.0) Anion Gap 7 MEQ/L (5-15) Blood Urea Nitrogen 20 MG/DL (7-18) Creatinine 1.05 MG/DL (0.60-1.30) Estimat Glomerular Filtration 75 ML/MIN (>89) Rate Random Glucose 178 MG/DL (74-106) Serum Osmolality 312 MOSM/KG 314 MOSM/KG 318 MOSM/KG (275-295) (275-295) (275-295) Calcium Level 8.2 MG/DL (8.5-10.1) Total Bilirubin 0.2 MG/DL (0.2-1.0) Aspartate Amino Transf 27 U/L (15-37) (AST/SGOT) Alanine Aminotransferase 37 U/L (12-78) (ALT/SGPT) Alkaline Phosphatase 46 U/L (45-117) Total Protein 5.7 GM/DL (6.4-8.2) Albumin 2.6 GM/DL (3.4-5.0) White Blood Count 22.8 TH/MM3 (4.0-11.0) Red Blood Count 3.85 MIL/MM3 (4.50-5.90) Hemoglobin 11.7 GM/DL (13.0-17.0) Hematocrit 35.3 % (39.0-51.0) Mean Corpuscular Volume 91.6 FL (80.0-100.0) Mean Corpuscular Hemoglobin 30.3 PG (27.0-34.0) Mean Corpuscular Hemoglobin 33.1 % Concent (32.0-36.0) Red Cell Distribution Width 13.9 % (11.6-17.2) Platelet Count 178 TH/MM3 (150-450) Mean Platelet Volume 8.5 FL (7.0-11.0) Neutrophils (%) (Auto) 92.9 % (16.0-70.0) Lymphocytes (%) (Auto) 4.5 % (9.0-44.0) Monocytes (%) (Auto) 1.1 % (0.0-8.0) Eosinophils (%) (Auto) 1.1 % (0.0-4.0) Basophils (%) (Auto) 0.4 % (0.0-2.0) Neutrophils # (Auto) 21.2 TH/MM3 (1.8-7.7) Lymphocytes # (Auto) 1.0 TH/MM3 (1.0-4.8) Monocytes # (Auto) 0.3 TH/MM3 (0-0.9) Eosinophils # (Auto) 0.3 TH/MM3 (0-0.4) Basophils # (Auto) 0.1 TH/MM3 (0-0.2) CBC Comment DIFF FINAL Differential Comment Test 08/17/16 08/18/16 08/18/16 08/18/16 23:40 04:00 05:00 05:30 Sodium Level 147 MEQ/L 147 MEQ/L (136-145) (136-145) Serum Osmolality 325 MOSM/KG 322 MOSM/KG (275-295) (275-295) White Blood Count 20.3 TH/MM3 (4.0-11.0) Red Blood Count 3.77 MIL/MM3 (4.50-5.90) Hemoglobin 11.4 GM/DL (13.0-17.0) Hematocrit 34.9 % (39.0-51.0) Mean Corpuscular Volume 92.7 FL (80.0-100.0) Mean Corpuscular Hemoglobin 30.1 PG (27.0-34.0) Mean Corpuscular Hemoglobin 32.5 % Concent (32.0-36.0) Red Cell Distribution Width 14.3 % (11.6-17.2) Platelet Count 166 TH/MM3 (150-450) Mean Platelet Volume 9.0 FL (7.0-11.0) Neutrophils (%) (Auto) 88.8 % (16.0-70.0) Lymphocytes (%) (Auto) 4.7 % (9.0-44.0) Monocytes (%) (Auto) 6.4 % (0.0-8.0) Eosinophils (%) (Auto) 0.0 % (0.0-4.0) Basophils (%) (Auto) 0.1 % (0.0-2.0) Neutrophils # (Auto) 18.0 TH/MM3 (1.8-7.7) Lymphocytes # (Auto) 0.9 TH/MM3 (1.0-4.8) Monocytes # (Auto) 1.3 TH/MM3 (0-0.9) Eosinophils # (Auto) 0.0 TH/MM3 (0-0.4) Basophils # (Auto) 0.0 TH/MM3 (0-0.2) CBC Comment DIFF FINAL Differential Comment Blood Gas Puncture Site ART LINE Blood Gas Patient Temperature 98.6 Blood Gas HCO3 23 mmol/L (22-26) Blood Gas Base Excess -2.2 mmol/L (-2-2) Blood Gas Oxygen Saturation 94 % (90-100) Arterial Blood pH 7.35 (7.380-7.420) Arterial Blood Partial 42 mmHg (38-42) Pressure CO2 Arterial Blood Partial 87 mmHg Pressure O2 (61-120) Arterial Blood Oxygen Content 13.6 Vol % (12.0-20.0) Arterial Blood 1.4 % (0-4) Carboxyhemoglobin Arterial Blood Methemoglobin 1.0 % (0-2) Blood Gas Hemoglobin 10.2 G/DL (12.0-16.0) Oxygen Delivery Device VENTILATOR Blood Gas Ventilator Setting AC 26/550/5PEEP Blood Gas Inspired Oxygen 40 % Potassium Level 4.8 MEQ/L (3.5-5.1) Chloride Level 113 MEQ/L (98-107) Carbon Dioxide Level 30.0 MEQ/L (21.0-32.0) Anion Gap 4 MEQ/L (5-15) Blood Urea Nitrogen 26 MG/DL (7-18) Creatinine 1.10 MG/DL (0.60-1.30) Estimat Glomerular Filtration 71 ML/MIN (>89) Rate Random Glucose 169 MG/DL (74-106) Calcium Level 7.9 MG/DL (8.5-10.1) Phosphorus Level 3.3 MG/DL (2.5-4.9) Magnesium Level 2.7 MG/DL (1.5-2.5) Total Bilirubin 0.2 MG/DL (0.2-1.0) Aspartate Amino Transf 16 U/L (15-37) (AST/SGOT) Alanine Aminotransferase 33 U/L (12-78) (ALT/SGPT) Alkaline Phosphatase 46 U/L (45-117) Total Protein 5.7 GM/DL (6.4-8.2) Albumin 2.6 GM/DL (3.4-5.0) Test 08/18/16 08/18/16 08/19/16 08/19/16 12:57 17:33 00:15 04:55 Sodium Level 148 MEQ/L 148 MEQ/L 148 MEQ/L 149 MEQ/L (136-145) (136-145) (136-145) (136-145) Serum Osmolality 321 MOSM/KG 320 MOSM/KG 318 MOSM/KG 323 MOSM/KG (275-295) (275-295) (275-295) (275-295) White Blood Count 9.8 TH/MM3 (4.0-11.0) Red Blood Count 3.35 MIL/MM3 (4.50-5.90) Hemoglobin 10.4 GM/DL (13.0-17.0) Hematocrit 31.3 % (39.0-51.0) Mean Corpuscular Volume 93.4 FL (80.0-100.0) Mean Corpuscular Hemoglobin 30.9 PG (27.0-34.0) Mean Corpuscular Hemoglobin 33.1 % Concent (32.0-36.0) Red Cell Distribution Width 14.5 % (11.6-17.2) Platelet Count 116 TH/MM3 (150-450) Mean Platelet Volume 8.6 FL (7.0-11.0) Neutrophils (%) (Auto) 84.4 % (16.0-70.0) Lymphocytes (%) (Auto) 7.7 % (9.0-44.0) Monocytes (%) (Auto) 7.6 % (0.0-8.0) Eosinophils (%) (Auto) 0.0 % (0.0-4.0) Basophils (%) (Auto) 0.3 % (0.0-2.0) Neutrophils # (Auto) 8.3 TH/MM3 (1.8-7.7) Lymphocytes # (Auto) 0.8 TH/MM3 (1.0-4.8) Monocytes # (Auto) 0.7 TH/MM3 (0-0.9) Eosinophils # (Auto) 0.0 TH/MM3 (0-0.4) Basophils # (Auto) 0.0 TH/MM3 (0-0.2) CBC Comment AUTO DIFF Differential Comment AUTO DIFF CONFIRMED Platelet Estimate LOW (NORMAL) Platelet Morphology Comment NORMAL (NORMAL) Potassium Level 4.6 MEQ/L (3.5-5.1) Chloride Level 112 MEQ/L (98-107) Carbon Dioxide Level 30.3 MEQ/L (21.0-32.0) Anion Gap 7 MEQ/L (5-15) Blood Urea Nitrogen 32 MG/DL (7-18) Creatinine 1.12 MG/DL (0.60-1.30) Estimat Glomerular Filtration 69 ML/MIN (>89) Rate Random Glucose 143 MG/DL (74-106) Calcium Level 7.9 MG/DL (8.5-10.1) Phosphorus Level 3.1 MG/DL (2.5-4.9) Magnesium Level 2.7 MG/DL (1.5-2.5) Total Bilirubin 0.2 MG/DL (0.2-1.0) Aspartate Amino Transf 22 U/L (15-37) (AST/SGOT) Alanine Aminotransferase 34 U/L (12-78) (ALT/SGPT) Alkaline Phosphatase 42 U/L (45-117) Total Protein 5.5 GM/DL (6.4-8.2) Albumin 2.5 GM/DL (3.4-5.0) Test 08/19/16 08/19/16 10:05 12:15 Urine Color YELLOW (YELLW/STRAW) Urine Turbidity CLEAR (CLEAR) Urine pH 5.5 (5.0-8.5) Urine Specific [place] 1.030 (1.002-1.035) Urine Protein TRACE mg/dL (NEG-TRACE) Urine Glucose (UA) NEG mg/dL (NEG) Urine Ketones NEG mg/dL (NEG) Urine Occult Blood SMALL (NEG) Urine Nitrite NEG (NEG) Urine Bilirubin NEG (NEG) Urine Urobilinogen LESS THAN 2.0 MG/DL (LESS THAN 2.0) Urine Leukocyte Esterase NEG (NEG) Urine RBC 13 /hpf (0-3) Urine WBC 2 /hpf (0-5) Urine Squamous Epithelial <1 /hpf (0-5) Cells Urine Bacteria OCC /hpf (NONE) Urine Mucus FEW /lpf (OCC) Microscopic Urinalysis Comment CATH-CULTURE IND Sodium Level 149 MEQ/L (136-145) Serum Osmolality 318 MOSM/KG (275-295) Result Diagram: 08/19/16 0455 08/19/16 4151 Microbiology Microbiology Date/Time Procedure Status Source Growth 08/16/16 15:01 Aerobic Blood Culture - Preliminary Resulted Blood Peripheral NO GROWTH IN 3 DAYS 08/16/16 15:01 Anaerobic Blood Culture - Preliminary Resulted Blood Peripheral NO GROWTH IN 3 DAYS 08/16/16 15:45 Aerobic Blood Culture - Preliminary Resulted Blood Peripheral NO GROWTH IN 3 DAYS 08/16/16 15:45 Anaerobic Blood Culture - Preliminary Resulted Blood Peripheral NO GROWTH IN 3 DAYS 08/16/16 16:55 Gram Stain - Final Complete Sputum Endotracheal 08/16/16 16:55 Sputum Culture - Final Complete Sputum Endotracheal HEAVY GROWTH NORMAL RESPIRATORY [place] 08/19/16 10:05 Urine Culture Received Urine Catheterized Urine Pending 08/19/16 10:30 Gram Stain Received Sputum Endotracheal Pending 08/19/16 10:30 Sputum Culture Received Sputum Endotracheal Pending 08/19/16 12:15 Aerobic Blood Culture Received Blood Other Pending 08/19/16 12:15 Anaerobic Blood Culture Received Blood Other Pending 08/19/16 12:20 Aerobic Blood Culture Received Blood Other Pending 08/19/16 12:20 Anaerobic Blood Culture Received Blood Other Pending Imaging Last [address] 08/18/16 0800 Signed Impressions: Service Date/Time: Thursday, August 18, 2016 20:37 - CONCLUSION: Evolving left MCA stroke into an area of encephalomalacia involving the left frontal temporal and parietal lobes. Diane Guzman MD Chest X-Ray 08/18/16 0600 Signed Impressions: Service Date/Time: Thursday, August 18, 2016 03:13 - CONCLUSION: No perceptible pneumothorax. Otherwise no change. Neftaly Holden MD Head CT 08/17/16 0800 Signed Impressions: Service Date/Time: Wednesday, August 17, 2016 08:23 - CONCLUSION: 1. Evolving left MCA infarct. Galindo Vuong MD Procedures 08/16/16 IVC filter 08/15/16 intubated 08/15/16 chest tube Assessment and Plan Disease Oriented Problem List: (1) Stroke (2) Pulmonary embolism (3) Non-STEMI (non-ST elevated myocardial infarction) (4) DVT (deep venous thrombosis) (5) Lung cancer Symptom Scale: (1) Pain Comment: History of osteoarthritis Pertinent Non-Medical Issues Psychosocial: He is , has 1 son, lives in [place], worked in auto body repair and painting, 40 year history smoking, Spiritual: Confucianism Legal: This time,His is his legal healthcare decision-maker, she is supported by their son, Neftaly Ethical issues impacting care: Important Contacts Erika Chávez, , Neftaly Chávez, son, Prognosis Prognosis is extremely poor light of the history of events, resulting in a large left brain stroke, recent HI, recent PE, recent DVT, unable to be on anticoagulation due to the nature of hemorrhage in the brain and high risk for further embolisms. Should he survive this event he would have significant neurologic deficits Plan Decision Maker: Erika Chávez, , Code Status: Family unable to decide at this time Family Discussion: 08/16/16 Attempted to provide family with information and answer their questions regarding Mr. Chávez. They are argumentative on them each other, as to importance of information and prior to events. Relative to goals of care: It was difficult to get them to come to a point of understanding and agreement yet Mrs. Chávez indicates that her would not want extreme measures if he could not recover from them. At one point, she indicates her goal as him being able to breathe on his own again, yet the next moment she understands that he is dying and that likely would not wake up on his own. She was not willing to entertain the thought of an ICP drain nor a trach. She also was not willing to entertain CODE STATUS. She understands that at this point treating his lung cancer is on the "back burner". At this point, they are intent to wait until Friday before making any decisions Symptoms: Dyspnea and pain Palliative care phone number provided - will follow during hospital stay. Attestation To help prompt me to consider important information that might be impacting today's encounter and assessment, information from prior notes written by myself or my colleagues may have been "brought forward" into today's note. My signature on this note, however, is an attestation that I personally performed the exam, history, and/or decision-making noted today, and, unless otherwise indicated, the interactions with patient, family, and staff as well as the review of records all occurred today. I also attest that the listed assessment and stated plan reflect my best clinical judgment today based on the combination of historical information, prior notes, and today's exam/ interactions. When time spent is documented, it refers only to time spent today by the signer, or if indicated, combined time spent today by collaborating physician/nurse practitioner. Dionna Frazier August 19, 2016 14:36
--- NOTE | 2016-08-19 15:02 | HHI.CCPN ---
Subjective Remarks/Hospital Course 08/15: Mr. Cooley is a 50 y/o CM with a PMHx of COPD who continues to smoke and is s/p R lung biopsy secondary to a recently found lung mass presenting with dyspnea. Prior to his biopsy today, he was being treated as an outpatient with a Medrol dose pack with Levaquin for a COPD exacerbation. He endorsed dyspnea on exertion today, but denied any fevers, chest pain, wheezing, cough, or LE edema/tenderness. He has a history of LLE DVT diagnosed in 07/05, but has been off his anticoagulation for approximately 11 days (Previously on Xarelto). He had a port placed 2 days ago and lung biopsy today. He has been short of breath since 1 day prior to the procedure. After his biopsy, he was found to have a small apical pneumothorax on CXR, diaphoretic, and tachypneic with hypoxia of 81 % on room air. He was placed on 4L and improved to 85%. He was then placed on a non-rebreather and transferred to the ICU. On arrival he was tachypneic with oxygen saturation in the upper 80s. CTA showed acute pulmonary embolisms of the BL lower lobes with a small R pneumothorax. Therefore a R sided chest tube was placed and heparin drip without bolus was initiated. The patient has been continued on Levaquin ABX, has been give steroids with multiple breathing treatments, and has been placed on BiPAP. 08/16: Patient was noted to have an elevated troponin and was diagnosed to have a non-ST elevation IL last evening. He was on BiPAP at the time with full facemask. It was noticed that he was not moving the right side of his body when he was turned to administer rectal aspirin and subsequent head CT and CTA revealed significant edema in the left cerebral hemisphere and occluded left MCA with thrombus. Neurology was contacted by Dr. Martínez and due to concern for hemorrhagic transformation heparin was held. Dr. Martínez discussed the case with Dr. Okeefe from interventional radiology who did not feel that the patient was a good candidate for clot retrieval due to high risk for hemorrhagic transformation given the amount of cerebral edema and extent of infarct. Patient was given mannitol. This morning when I evaluated patient was in BiPAP with full facemask with a dense right hemiplegia with some spontaneous movement involving his left upper extremity. He was intubated and placed on mechanical ventilation for airway protection and hyperventilation in view of cerebral edema as well as for borderline respiratory status. Subsequently he underwent MRI brain which showed large left MCA territory infarct with some collateral flow. IVC filter was placed by interventional radiology after discussion with Dr. Murry, his oncologist as patient is now off heparin and is at risk for recurrent PE. 08/17: Remains sedated, orally intubated on mechanical ventilation. On 3% saline overnight. Head CT done this morning shows slight increase in cerebral edema in the area of left MCA territory infarct which appears more hypodense. Remains on Levophed 10mcg/min. Moves left side spontaneously however not following commands. Right hemiplegia persists 08/18: Remains sedated, orally intubated on mechanical ventilation. Remains on 3 % saline, Levophed. Awakens on lightening sedation and moves left side spontaneously. 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 08/19: Remains sedated, orally intubated on mechanical ventilation. Off Levophed. Awakens on lightening sedation and moves left side spontaneously. Right hemiplegia persists. Tolerating tube feeds. Spiked temperatures overnight. Parr cultures ordered. Suspect central fever versus infection. On Levaquin currently. Objective Vital Signs Date Time Temp Pulse Resp B/P Pulse Ox O2 Delivery O2 Flow Rate FiO2 08/19/16 12:30 97 40 08/19/16 10:00 74 08/19/16 08:00 102.1 28 105/69 110/68 08/19/16 07:00 Mechanical Ventilator 15.00 Intake and Output 08/18/16 08/18/16 08/19/16 08:00 16:00 00:00 Intake Total 876 ml 1059 ml Output Total 315.0 ml 485 ml 400 ml Balance 561.0 ml 574 ml -400 ml Result Diagram: 08/19/16 0455 08/19/16 1215 Other Results Laboratory Tests Test 08/18/16 08/19/16 08/19/16 08/19/16 17:33 00:15 04:55 10:05 Sodium Level 148 MEQ/L 148 MEQ/L 149 MEQ/L Serum Osmolality 320 MOSM/KG 318 MOSM/KG 323 MOSM/KG White Blood Count 9.8 TH/MM3 Red Blood Count 3.35 MIL/MM3 Hemoglobin 10.4 GM/DL Hematocrit 31.3 % Mean Corpuscular Volume 93.4 FL Mean Corpuscular Hemoglobin 30.9 PG Mean Corpuscular Hemoglobin 33.1 % Concent Red Cell Distribution Width 14.5 % Platelet Count 116 TH/MM3 Mean Platelet Volume 8.6 FL Neutrophils (%) (Auto) 84.4 % Lymphocytes (%) (Auto) 7.7 % Monocytes (%) (Auto) 7.6 % Eosinophils (%) (Auto) 0.0 % Basophils (%) (Auto) 0.3 % Neutrophils # (Auto) 8.3 TH/MM3 Lymphocytes # (Auto) 0.8 TH/MM3 Monocytes # (Auto) 0.7 TH/MM3 Eosinophils # (Auto) 0.0 TH/MM3 Basophils # (Auto) 0.0 TH/MM3 CBC Comment AUTO DIFF Differential Comment AUTO DIFF CONFIRMED Platelet Estimate LOW Platelet Morphology Comment NORMAL Potassium Level 4.6 MEQ/L Chloride Level 112 MEQ/L Carbon Dioxide Level 30.3 MEQ/L Anion Gap 7 MEQ/L Blood Urea Nitrogen 32 MG/DL Creatinine 1.12 MG/DL Estimat Glomerular Filtration 69 ML/MIN Rate Random Glucose 143 MG/DL Calcium Level 7.9 MG/DL Phosphorus Level 3.1 MG/DL Magnesium Level 2.7 MG/DL Total Bilirubin 0.2 MG/DL Aspartate Amino Transf 22 U/L (AST/SGOT) Alanine Aminotransferase 34 U/L (ALT/SGPT) Alkaline Phosphatase 42 U/L Total Protein 5.5 GM/DL Albumin 2.5 GM/DL Urine Color YELLOW Urine Turbidity CLEAR Urine pH 5.5 Urine Specific [place] 1.030 Urine Protein TRACE mg/dL Urine Glucose (UA) NEG mg/dL Urine Ketones NEG mg/dL Urine Occult Blood SMALL Urine Nitrite NEG Urine Bilirubin NEG Urine Urobilinogen LESS THAN 2.0 MG/DL Urine Leukocyte Esterase NEG Urine RBC 13 /hpf Urine WBC 2 /hpf Urine Squamous Epithelial <1 /hpf Cells Urine Bacteria OCC /hpf Urine Mucus FEW /lpf Microscopic Urinalysis Comment CATH-CULTURE IND Test 08/19/16 12:15 Sodium Level 149 MEQ/L Serum Osmolality 318 MOSM/KG Microbiology Date/Time Procedure Status Source Growth 08/16/16 16:55 Gram Stain - Final Complete Sputum Endotracheal 08/16/16 16:55 Sputum Culture - Final Complete Sputum Endotracheal HEAVY GROWTH NORMAL [facility] Last [address] 08/18/16 0800 Signed Impressions: Service Date/Time: Thursday, August 18, 2016 20:37 - CONCLUSION: Evolving left MCA stroke into an area of encephalomalacia involving the left frontal temporal and parietal lobes. Diane Guzman MD Chest X-Ray 08/18/16 0600 Signed Impressions: Service Date/Time: Thursday, August 18, 2016 03:13 - CONCLUSION: No perceptible pneumothorax. Otherwise no change. Neftaly Holden MD Last [address] 08/17/16 0800 Signed Impressions: Service Date/Time: Wednesday, August 17, 2016 08:23 - CONCLUSION: 1. Evolving left MCA infarct. Galindo Vuong MD Head CTA 08/16/16 0207 Signed Impressions: Service Date/Time: Tuesday, August 16, 2016 04:10 - CONCLUSION: Thrombosed left middle cerebral artery with associated large subacute cerebral infarct. Neftaly Holden MD Neck CTA 08/16/16 0000 Signed Impressions: Service Date/Time: Tuesday, August 16, 2016 04:10 - CONCLUSION: 1. Extracranial carotids are normal. Also normal vertebral arteries. 2. Known malignant right upper lobe mass. Mediastinal and hilar lymphadenopathy seen in the upper chest. Neftaly Holden MD IVC Filter Placement X-Ray 08/16/16 0000 Signed Impressions: Service Date/Time: Tuesday, August 16, 2016 10:30 - CONCLUSION: Uncomplicated inferior vena cava filter placement as above. Israel Okeefe MD Head Magnetic Resonance Angiography 08/16/16 0000 Signed Impressions: Service Date/Time: Tuesday, August 16, 2016 10:27 - CONCLUSION: Markedly abnormal cerebral perfusion corresponding to the large MCA occlusion on the left. Harshad Campbell MD FACR Head CT 08/16/16 0000 Signed Impressions: Service Date/Time: Tuesday, August 16, 2016 00:56 - CONCLUSION: Large left sided cerebral edema as above, appearance most typical of a subacute middle cerebral artery distribution infarct. No bleed or definite mass. Neftaly Holden MD Chest X-Ray 08/16/16 0000 Signed Impressions: Service Date/Time: Tuesday, August 16, 2016 15:33 - CONCLUSION: 1. Uncomplicated line placement. No evidence of pneumothorax. 2. Decreasing right apical pneumothorax Israel Okeefe MD Chest X-Ray 08/16/16 0000 Signed Impressions: Service Date/Time: Tuesday, August 16, 2016 08:15 - CONCLUSION: 1. Interval intubation. 2. Placement of nasogastric tube with the tip in the distal esophagus. This could be advanced at least 7 cm. 3. Mild interval increase in size the small right apical pneumothorax. 4. Increasing opacity in the right lung base most consistent with infiltrate. Barrett Holman MD Brain MRI 08/16/16 0000 Signed Impressions: Service Date/Time: Tuesday, August 16, 2016 10:27 - CONCLUSION: Large area of infarction involving the left Sylvian region. There is occlusion of the distal left MCA. There is some collateralization distally. Harshad Campbell MD FACR Chest X-Ray 08/15/16 1300 Signed Impressions: Service Date/Time: July 12:55 - CONCLUSION: Stable tiny right apical pneumothorax. Neftaly Rodriguez MD Chest X-Ray 08/15/16 1200 Signed Impressions: Service Date/Time: July 11:51 - CONCLUSION: There is a new tiny apical right pneumothorax. Neftaly Rodriguez MD Last 72 hours Impressions Chest X-Ray 08/15/16 1300 Signed Impressions: Service Date/Time: July 12:55 - CONCLUSION: Stable tiny right apical pneumothorax. Neftaly Rodriguez MD Chest X-Ray 08/15/16 1200 Signed Impressions: Service Date/Time: July 11:51 - CONCLUSION: There is a new tiny apical right pneumothorax. Neftaly Rodriguez MD Chest X-Ray 08/15/16 1030 Signed Impressions: Service Date/Time: July 10:20 - CONCLUSION: No pneumothorax following recent right lung biopsy. Neftaly Rodriguez MD Lung Biopsy CT 08/15/16 0000 Signed Impressions: Service Date/Time: July 08:22 - CONCLUSION: Uncomplicated CT guided biopsy of the right upper lobe lung mass. Neftaly Rodriguez MD Chest X-Ray 08/15/16 0000 Signed Impressions: Service Date/Time: July 07:12 - CONCLUSION: 1. No pneumothorax is visualized. Right chest wall [id number] distal tip is at the cavoatrial junction. 2. Right upper lobe pulmonary mass is again visualized. Neftaly Rodriguez MD CT Angiography 08/15/16 0000 Signed Impressions: Service Date/Time: July 13:22 - CONCLUSION: 1. There is acute appearing PE in the right lower lobe segmental and left lower lobe subsegmental pulmonary arteries. These PE are new since the prior CT from 07/09/2016. 2. Small right pneumothorax. 3. Right upper lobe pulmonary mass remains present and measures 4.9 cm. There is associated mediastinal, right hilar, and right supraclavicular lymphadenopathy suspicious for lymphatic spread of disease. Neftaly Rodriguez MD Objective Remarks HEENT/ Neuro: Sedated, orally intubated, Pallor present, no icterus, tongue/ mucosa moist. Pupils 3 mm bilaterally reacting actively to light. Opens eyes occasionally on lightening sedation. Dense right hemiplegia. Localizes with left upper and lower extremity. Neck: No JVD Chest/Pulm: on mech vent, good air entry bilaterally, minimal wheezing, no crackles. Right sided chest tube in place, no air leak noted. Port over right chest wall. CVS: S1-S2 regular, no murmur GI/abdomen: soft, nontender, bowel sounds sluggish Extremities: warm bilaterally, no edema Urinary Catheter: Yes Assessment to: Continue Vascular Central Line Catheter: Yes Assessment to: Continue Date of Insertion: Aug 16, 2016 Line: Central Venous Catheter Side: Left Location: Jugular A/P Assessment and Plan Neuro: Left MCA territory ischemic infarct with cerebral edema Encephalopathy Bipolar Disorder with depression/anxiety Sedation with propofol/ fentanyl, daily sedation vacation. Neurochecks per protocol. Neurology and neurosurgery consulted. Mannitol/ 3% saline currently on hold as serum osmolarity greater than 320. Stop mannitol. We will use 3% saline as needed. Continue antiplatelet therapy with aspirin. Repeat head CT 08/18 shows some encephalomalacia in the site of left MCA territory infarct, cerebral edema persists Monitor neuro status with neuro checks per protocol CV: Hypotension Non-ST elevation IL History of HTN, CAD with IL s/p stent placement(2002) 2-D echo with no evidence of R heart strain. Difficult study due to tachycardia. EF 35-40%. Moderate mid to distal inferior hypokinesis and distal lateral hypokinesis. Trace tricuspid regurgitation. PA peak pressure 53 mmHg. Elevated cardiac enzymes/ EKG consistent with non-ST elevation IL. On aspirin 162mg daily. Cardiology following Off Levophed. Hold all antihypertensives. KVO IV fluids. We will consider adding low-dose beta camila if no further hypotension. Add lipitor 20 mg by mouth daily (08/19) Pulm: Right pneumothorax BL PEs on CTA COPD Exacerbation R Lung mass s/p biopsy R sided chest tube to suction Continue mechanical ventilation. Vent bundle, bronchodilators Decrease Solumedrol to 60mg Q12H Right sided chest tube in place, no air leak noted. End-tidal CO2 monitoring, attempt keeping PCO2 30-35mm Hg Hold C Pap trials still cerebral edema decreases for the next few days. Renal/: KVO IVF as patient with decreased EF. Strict intake output, monitor and replete electrolites, follow BUN/ creatinine. ID: Continue with empiric abx (Levaquin). sputum cultures and blood cultures repeated on 08/19 for fevers which may be central versus related to infection though patient does not have leukocytosis. Legionella and Streptococcus urinary antigens negative. Heme-onc: DVT/PE/right apical lung mass highly suspicious for malignancy Off anticoagulation with heparin due to large stroke with risk for hemorrhagic transformation. IVC filter placed . Continue aspirin. Started subcutaneous heparin on 08/17 after clearing with neurosurgery. Monitor CBC. Being followed by Dr. Murry from Oncology Endocrine: Hx of DM per chart review, not on medications at home SSI per protocol GI: Continue tube feeds with Glucerna. Prophylaxis with Pepcid BID DVT prophylaxis: SCDs. Started subcutaneous heparin after clearance by neurology/neurosurgery Case discussed with Dr. Jean from neurology/neurosurgery/oncology-Dr. Murry on Long discussion with patient's family morning of 08/16 regarding current clinical status and plan of care and they voiced understanding and were agreeable. Also discussed palliative care consult which they are interested in as they did not want long-term mechanical ventilation if patient was not going to do well. On 08/18 : Updated family regarding current clinical status and plan of care and they voiced understanding and were agreeable. 08/19: Patient's family was updated at bedside regarding current clinical status and plan of care and they voiced understanding and were agreeable. I explained need for decrease in cerebral edema prior to initiating sedation vacation than C Pap trials to decide extubation. Condition critical. Time spent on critical care excluding procedures 40 minutes Joseph Harrell MD August 19, 2016 15:02
[2016-08-19 15:21] LABS: BLOOD GAS BASE EXCESS 3.7 mmol/L (-2-2); BLOOD GAS CARBOXYHEMOGLOBIN 1.6 % (0-4); BLOOD GAS HCO3 28 mmol/L (22-26); BLOOD GAS O2 HGB SATURATION 91 % (90-100); BLOOD GAS OXYGEN CONTENT 12.7 Vol % (12.0-20.0); BLOOD GAS PCO2 46 mmHg (38-42); BLOOD GAS PO2 71 mmHg (61-120); BLOOD GAS TOTAL HGB 9.8 G/DL (12.0-16.0); CRITICAL VALUE NO; DRAW SITE ART LINE; FIO2 40 %; OXYGEN DEVICE VENTILATOR; STAT NO; TEMP CORR TO 98.6; VENT SETTINGS 550/28/PEEP5
[2016-08-19] MEDS: LEVOFLOXACIN 750 MG PREMIX INJ 150 ML IV SCH (17:26)
--- NOTE | 2016-08-19 17:27 | PD.CARD.PN ---
Subjective Subjective Remarks Intubated, sedated, back from head scan, off Levaphed Objective Medications Current Medications Medications (Trade) Dose Ordered Sig/Beto Route Start Time Stop Time Status Last Admin (NS Flush) 2 ml UNSCH PRN IV FLUSH 08/15/16 07:15 (NS Flush) 2 ml UNSCH PRN IV FLUSH 08/15/16 07:15 (NS Flush) 5 ml Q21D IV FLUSH 08/15/16 07:15 08/16/16 08:39 (Heparin Central Flush) 500 units Q21D IV FLUSH 08/15/16 07:15 (NS Flush) 5 ml UNSCH PRN IV FLUSH 08/15/16 07:15 (Heparin Central Flush) 250 units UNSCH PRN IV FLUSH 08/15/16 07:15 (NS Flush) 2 ml BID IV FLUSH 08/15/16 21:00 08/19/16 09:15 (NS Flush) 2 ml UNSCH PRN IV FLUSH 08/15/16 12:15 (Xanax) 0.25 mg Q8H PRN PO 08/15/16 12:15 (Abilify) 15 mg HS PO 08/15/16 21:00 Hold 08/18/16 19:33 (Symbicort 160-4.5 Inh) 2 puff Q12HR INH 08/15/16 21:00 08/19/16 08:59 (Neurontin) 100 mg TID PO 08/15/16 13:00 08/19/16 12:07 ([place] 10-325 Mg) 1 tab Q4H PRN PO 08/15/16 12:15 (Spiriva Inh) 18 mcg DAILY INH 08/16/16 09:00 (Desyrel) 100 mg HS PO 08/15/16 21:00 Hold 08/18/16 19:33 (PROzac) 60 mg DAILY PO 08/16/16 09:00 Hold (Tylenol) 650 mg Q4H PRN PO 08/15/16 12:15 08/19/16 09:52 (Zofran Inj) 4 mg Q6H PRN IV 08/15/16 12:15 (Colace) 100 mg BID PRN PO 08/15/16 12:15 08/19/16 13:14 (Mag-Al Plus Susp Liq) 30 ml Q6H PRN PO 08/15/16 12:15 (Tums Chew) 1,000 mg TID PRN CHEW 08/15/16 12:15 Miscellaneous Information 1 Q361D XX 08/15/16 13:15 08/15/16 19:00 (Chlorhexidine 2% Cloth) 3 pack Taper DAILY@04 TOP 08/16/16 04:00 08/12/17 03:59 08/19/16 04:00 (Chlorhexidine 2% Cloth) 3 pack UNSCH PRN TOP 08/15/16 13:15 (Heparin Inj) 5,000 units UNSCH PRN IV 08/15/16 19:15 Hold Heparin Sodium (Porcine) 2500 units 2,500 units UNSCH PRN IV 08/15/16 19:15 Hold Heparin Sodium/ Dextrose 250 ml @ 0 mls/hr TITRATE IV 08/15/16 13:15 Hold 08/15/16 15:22 (Levaquin 750 Mg Premix Inj) 150 ml @ 100 mls/hr Q24H IV 08/15/16 16:00 08/18/16 16:34 (Apresoline Inj) 10 mg Q2HR PRN IV PUSH 08/15/16 16:00 08/16/16 04:36 (Pepcid Inj) 20 mg Q12H IV PUSH 08/15/16 16:00 08/19/16 05:12 (D50w (Vial) Inj) 25 ml UNSCH PRN IV PUSH 08/15/16 17:30 (Glucagon Inj) 1 mg UNSCH PRN OTHER 08/15/16 17:30 (Dilantin Inj) 100 mg Q8HR IV 08/16/16 14:00 08/19/16 13:14 Chlorhexidine Gluconate 15 ml 15 ml BID@08,20 MT 08/16/16 20:00 08/19/16 08:00 Propofol 100 ml @ 0 mls/hr TITRATE IV 08/16/16 15:30 08/19/16 13:14 (Levophed-Dextrose Drip) 250 ml @ 0 mls/hr TITRATE IV 08/16/16 15:30 08/18/16 14:43 Terbutaline Sulfate 1 mg 1 mg UNSCH PRN SQ 08/16/16 15:15 Sodium Chloride 1,000 ml @ 20 mls/hr Q24H IV 08/16/16 15:30 08/19/16 05:11 (fentaNYL DRIP) 250 ml @ 0 mls/hr TITRATE IV 08/17/16 10:45 08/19/16 12:07 (NovoLOG SUPPLEMENTAL SCALE) 1 Q6HR SQ 08/17/16 12:00 08/19/16 05:10 (SoluMEDROL INJ) 60 mg Q8HR IVP 08/17/16 14:00 08/19/16 13:14 Aspirin 162 mg 162 mg DAILY CHEW 08/17/16 12:15 08/19/16 09:14 (Sodium Chloride 3% Inj) 500 ml @ 25 mls/hr Q20H IV 08/18/16 11:15 08/18/16 12:21 (Senna Liq) 8.8 mg DAILY OG-TUBE 08/18/16 11:30 08/19/16 09:14 (Heparin Inj) 5,000 units Q8HR SQ 08/19/16 22:00 Vital Signs / I&O Vital Signs Date Time Temp Pulse Resp B/P Pulse Ox O2 Delivery O2 Flow Rate FiO2 08/19/16 16:41 100 08/19/16 14:00 64 08/19/16 12:30 97 40 08/19/16 12:00 100.1 67 28 96/65 93 96/52 08/19/16 12:00 67 08/19/16 10:00 74 08/19/16 08:10 97 40 08/19/16 08:00 102.1 74 28 105/69 100 110/68 08/19/16 08:00 74 08/19/16 07:00 Mechanical Ventilator 15.00 40 08/19/16 06:00 71 111/66 08/19/16 06:00 71 08/19/16 04:00 99.9 79 28 118/78 100 123/73 08/19/16 04:00 79 08/19/16 03:35 95 40 08/19/16 02:00 83 08/19/16 00:00 99.1 75 25 105/68 97 106/62 08/19/16 00:00 75 08/18/16 23:25 98 40 08/18/16 22:00 73 08/18/16 20:25 100 08/18/16 20:00 101.4 80 26 109/68 96 105/58 08/18/16 20:00 80 08/18/16 19:54 96 40 08/18/16 19:00 Mechanical Ventilator 15.00 40 08/18/16 18:00 85 08/18/16 18:00 85 110/75 115/66 I/O 08/18/16 08/18/16 08/18/16 08/19/16 08/19/16 08/19/16 07:00 15:00 23:00 07:00 15:00 23:00 Intake Total 876 ml 1059 ml 2310 ml 1083 ml Output Total 315 ml 485 ml 400 ml 575 ml 460 ml Balance 561 ml 574 ml -400 ml 1735 ml 623 ml Intake IV Total 612 ml 750 ml 1735 ml 425 ml Tube Feeding 164 ml 249 ml 495 ml 408 ml Tube Irrigant 80 ml Other 100 ml 60 ml 250 ml Output Urine Total 275 ml 400 ml 400 ml 550 ml 425 ml Stool Total 0 ml 0 ml Tube Feeding Residual Discard 0 ml 0 ml Chest Tube Drainage Total 40 ml 85 ml 25 ml 35 ml # Bowel Movements 0 0 Physical Exam GENERAL: Intubated, sedated SKIN: Warm and dry. HEAD: Normocephalic. EYES: No scleral icterus. No injection or drainage. NECK: Supple, trachea midline. No JVD or lymphadenopathy. CARDIOVASCULAR: Regular rate and rhythm without murmurs, gallops, or rubs. RESPIRATORY: Breath sounds equal bilaterally. No accessory muscle use. GASTROINTESTINAL: Abdomen soft, non-tender, nondistended. MUSCULOSKELETAL: No cyanosis, or edema. Laboratory Laboratory Tests Test 08/18/16 08/19/16 08/19/16 08/19/16 17:33 00:15 04:55 10:05 Sodium Level 148 MEQ/L 148 MEQ/L 149 MEQ/L Serum Osmolality 320 MOSM/KG 318 MOSM/KG 323 MOSM/KG White Blood Count 9.8 TH/MM3 Red Blood Count 3.35 MIL/MM3 Hemoglobin 10.4 GM/DL Hematocrit 31.3 % Mean Corpuscular Volume 93.4 FL Mean Corpuscular Hemoglobin 30.9 PG Mean Corpuscular Hemoglobin 33.1 % Concent Red Cell Distribution Width 14.5 % Platelet Count 116 TH/MM3 Mean Platelet Volume 8.6 FL Neutrophils (%) (Auto) 84.4 % Lymphocytes (%) (Auto) 7.7 % Monocytes (%) (Auto) 7.6 % Eosinophils (%) (Auto) 0.0 % Basophils (%) (Auto) 0.3 % Neutrophils # (Auto) 8.3 TH/MM3 Lymphocytes # (Auto) 0.8 TH/MM3 Monocytes # (Auto) 0.7 TH/MM3 Eosinophils # (Auto) 0.0 TH/MM3 Basophils # (Auto) 0.0 TH/MM3 CBC Comment AUTO DIFF Differential Comment AUTO DIFF CONFIRMED Platelet Estimate LOW Platelet Morphology Comment NORMAL Potassium Level 4.6 MEQ/L Chloride Level 112 MEQ/L Carbon Dioxide Level 30.3 MEQ/L Anion Gap 7 MEQ/L Blood Urea Nitrogen 32 MG/DL Creatinine 1.12 MG/DL Estimat Glomerular Filtration 69 ML/MIN Rate Random Glucose 143 MG/DL Calcium Level 7.9 MG/DL Phosphorus Level 3.1 MG/DL Magnesium Level 2.7 MG/DL Total Bilirubin 0.2 MG/DL Aspartate Amino Transf 22 U/L (AST/SGOT) Alanine Aminotransferase 34 U/L (ALT/SGPT) Alkaline Phosphatase 42 U/L Total Protein 5.5 GM/DL Albumin 2.5 GM/DL Urine Color YELLOW Urine Turbidity CLEAR Urine pH 5.5 Urine Specific [place] 1.030 Urine Protein TRACE mg/dL Urine Glucose (UA) NEG mg/dL Urine Ketones NEG mg/dL Urine Occult Blood SMALL Urine Nitrite NEG Urine Bilirubin NEG Urine Urobilinogen LESS THAN 2.0 MG/DL Urine Leukocyte Esterase NEG Urine RBC 13 /hpf Urine WBC 2 /hpf Urine Squamous Epithelial <1 /hpf Cells Urine Bacteria OCC /hpf Urine Mucus FEW /lpf Microscopic Urinalysis Comment CATH-CULTURE IND Test 08/19/16 08/19/16 12:15 15:15 Sodium Level 149 MEQ/L Serum Osmolality 318 MOSM/KG Blood Gas Puncture Site ART LINE Blood Gas Patient Temperature 98.6 Blood Gas HCO3 28 mmol/L Blood Gas Base Excess 3.7 mmol/L Blood Gas Oxygen Saturation 91 % Arterial Blood pH 7.41 Arterial Blood Partial 46 mmHg Pressure CO2 Arterial Blood Partial 71 mmHg Pressure O2 Arterial Blood Oxygen Content 12.7 Vol % Arterial Blood 1.6 % Carboxyhemoglobin Arterial Blood Methemoglobin 1.0 % Blood Gas Hemoglobin 9.8 G/DL Oxygen Delivery Device VENTILATOR Blood Gas Ventilator Setting 550/28/PEEP5 Blood Gas Inspired Oxygen 40 % Imaging Last Impressions Head CT 08/18/16 0800 Signed Impressions: Service Date/Time: Thursday, August 18, 2016 20:37 - CONCLUSION: Evolving left MCA stroke into an area of encephalomalacia involving the left frontal temporal and parietal lobes. Diane Guzman MD Chest X-Ray 08/18/16 0600 Signed Impressions: Service Date/Time: Thursday, August 18, 2016 03:13 - CONCLUSION: No perceptible pneumothorax. Otherwise no change. Neftaly Holden MD Head CTA 08/16/16 0207 Signed Impressions: Service Date/Time: Tuesday, August 16, 2016 04:10 - CONCLUSION: Thrombosed left middle cerebral artery with associated large subacute cerebral infarct. Neftaly Holden MD Neck CTA 08/16/16 0000 Signed Impressions: Service Date/Time: Tuesday, August 16, 2016 04:10 - CONCLUSION: 1. Extracranial carotids are normal. Also normal vertebral arteries. 2. Known malignant right upper lobe mass. Mediastinal and hilar lymphadenopathy seen in the upper chest. Neftaly Holden MD IVC Filter Placement X-Ray 08/16/16 0000 Signed Impressions: Service Date/Time: Tuesday, August 16, 2016 10:30 - CONCLUSION: Uncomplicated inferior vena cava filter placement as above. Israel Okeefe MD Head Magnetic Resonance Angiography 08/16/16 0000 Signed Impressions: Service Date/Time: Tuesday, August 16, 2016 10:27 - CONCLUSION: Markedly abnormal cerebral perfusion corresponding to the large MCA occlusion on the left. Harshad Campbell MD FACR Brain MRI 08/16/16 0000 Signed Impressions: Service Date/Time: Tuesday, August 16, 2016 10:27 - CONCLUSION: Large area of infarction involving the left [place] region. There is occlusion of the distal left MCA. There is some collateralization distally. Harshad Campbell MD FACR Lung Biopsy CT 08/15/16 0000 Signed Impressions: Service Date/Time: July 08:22 - CONCLUSION: Uncomplicated CT guided biopsy of the right upper lobe lung mass. Neftaly Rodriguez MD CT Angiography 08/15/16 0000 Signed Impressions: Service Date/Time: July 13:22 - CONCLUSION: 1. There is acute appearing PE in the right lower lobe segmental and left lower lobe subsegmental pulmonary arteries. These PE are new since the prior CT from 07/09/2016. 2. Small right pneumothorax. 3. Right upper lobe pulmonary mass remains present and measures 4.9 cm. There is associated mediastinal, right hilar, and right supraclavicular lymphadenopathy suspicious for lymphatic spread of disease. Neftaly Rodriguez MD Assessment and Plan Problem List: (1) Non-STEMI (non-ST elevated myocardial infarction) (2) Stroke (3) Pneumothorax (4) Pulmonary embolism (5) Cardiomyopathy (6) Lung mass Assessment and Plan Continue ICU care. Pressors weaned. Neuro and NS eval. Continue ASA, initiate statin. Full anticoagulation contraindicated. Wean vent as tolerated. D/w pt's family. Varghese May MD August 19, 2016 17:27
--- NOTE | 2016-08-19 17:49 | RADRPT ---
EXAM DATE/TIME: 08/19/2016 16:04 [place] COMPARISON: CT BRAIN W/O CONTRAST, August 18, 2016, 20:37. INDICATIONS : Altered mental status. RADIATION DOSE: 56.35 CTDIvol (mGy) MEDICAL HISTORY : Carcinoma, lung. Myocardial infarction. SURGICAL HISTORY : stent placement ENCOUNTER: Initial ACUITY: 1 day PAIN SCALE: Non-responsive LOCATION: Bilateral head TECHNIQUE: Multiple contiguous axial images were obtained of the head. Using automated exposure control and adj ustment of the mA and/or kV according to patient size, radiation dose was kept as low as reasonably a chievable to obtain optimal diagnostic quality images. FINDINGS: Evolving left MCA stroke is again noted. Hyperdense MCA persists. There is no evidence of hemorrhagic conversion. There is mild compressive deformity of the left lateral ventricle and slight subfalcine shift as previously. Slight effacement of the paramesencephalic cisterns is also grossly stable. CONCLUSION: Stable brain appearance Neftaly Abad MD on August 19, 2016 at 17:46 Board Certified Radiologist. This report was verified electronically.
--- NOTE | 2016-08-19 18:10 | HHI.PR ---
Review/Management Diagnosis left MCA stroke Plan CT brain today for follow up Diagnosis/Plan: Subjective Subjective Comments No acute events reported Active Medications Current Medications Medications (Trade) Dose Ordered Sig/Beto Route Start Time Stop Time Status Last Admin (NS Flush) 2 ml UNSCH PRN IV FLUSH 08/15/16 07:15 (NS Flush) 2 ml UNSCH PRN IV FLUSH 08/15/16 07:15 (NS Flush) 5 ml Q21D IV FLUSH 08/15/16 07:15 08/16/16 08:39 (Heparin Central Flush) 500 units Q21D IV FLUSH 08/15/16 07:15 (NS Flush) 5 ml UNSCH PRN IV FLUSH 08/15/16 07:15 (Heparin Central Flush) 250 units UNSCH PRN IV FLUSH 08/15/16 07:15 (NS Flush) 2 ml BID IV FLUSH 08/15/16 21:00 08/19/16 09:15 (NS Flush) 2 ml UNSCH PRN IV FLUSH 08/15/16 12:15 (Xanax) 0.25 mg Q8H PRN PO 08/15/16 12:15 (Abilify) 15 mg HS PO 08/15/16 21:00 Hold 08/18/16 19:33 (Symbicort 160-4.5 Inh) 2 puff Q12HR INH 08/15/16 21:00 08/19/16 08:59 (Neurontin) 100 mg TID PO 08/15/16 13:00 08/19/16 17:26 ([place] 10-325 Mg) 1 tab Q4H PRN PO 08/15/16 12:15 (Spiriva Inh) 18 mcg DAILY INH 08/16/16 09:00 (Desyrel) 100 mg HS PO 08/15/16 21:00 Hold 08/18/16 19:33 (PROzac) 60 mg DAILY PO 08/16/16 09:00 Hold (Tylenol) 650 mg Q4H PRN PO 08/15/16 12:15 08/19/16 09:52 (Zofran Inj) 4 mg Q6H PRN IV 08/15/16 12:15 (Colace) 100 mg BID PRN PO 08/15/16 12:15 08/19/16 13:14 (Mag-Al Plus Susp Liq) 30 ml Q6H PRN PO 08/15/16 12:15 (Tums Chew) 1,000 mg TID PRN CHEW 08/15/16 12:15 Miscellaneous Information 1 Q361D XX 08/15/16 13:15 08/15/16 19:00 (Chlorhexidine 2% Cloth) 3 pack Taper DAILY@04 TOP 08/16/16 04:00 08/12/17 03:59 08/19/16 04:00 (Chlorhexidine 2% Cloth) 3 pack UNSCH PRN TOP 08/15/16 13:15 (Heparin Inj) 5,000 units UNSCH PRN IV 08/15/16 19:15 Hold Heparin Sodium (Porcine) 2500 units 2,500 units UNSCH PRN IV 08/15/16 19:15 Hold Heparin Sodium/ Dextrose 250 ml @ 0 mls/hr TITRATE IV 08/15/16 13:15 Hold 08/15/16 15:22 (Levaquin 750 Mg Premix Inj) 150 ml @ 100 mls/hr Q24H IV 08/15/16 16:00 08/19/16 17:26 (Apresoline Inj) 10 mg Q2HR PRN IV PUSH 08/15/16 16:00 08/16/16 04:36 (Pepcid Inj) 20 mg Q12H IV PUSH 08/15/16 16:00 08/19/16 17:25 (D50w (Vial) Inj) 25 ml UNSCH PRN IV PUSH 08/15/16 17:30 (Glucagon Inj) 1 mg UNSCH PRN OTHER 08/15/16 17:30 (Dilantin Inj) 100 mg Q8HR IV 08/16/16 14:00 08/19/16 13:14 Chlorhexidine Gluconate 15 ml 15 ml BID@08,20 MT 08/16/16 20:00 08/19/16 08:00 Propofol 100 ml @ 0 mls/hr TITRATE IV 08/16/16 15:30 08/19/16 13:14 (Levophed-Dextrose Drip) 250 ml @ 0 mls/hr TITRATE IV 08/16/16 15:30 08/18/16 14:43 Terbutaline Sulfate 1 mg 1 mg UNSCH PRN SQ 08/16/16 15:15 Sodium Chloride 1,000 ml @ 20 mls/hr Q24H IV 08/16/16 15:30 08/19/16 05:11 (fentaNYL DRIP) 250 ml @ 0 mls/hr TITRATE IV 08/17/16 10:45 08/19/16 12:07 (NovoLOG SUPPLEMENTAL SCALE) 1 Q6HR SQ 08/17/16 12:00 08/19/16 05:10 (SoluMEDROL INJ) 60 mg Q8HR IVP 08/17/16 14:00 08/19/16 13:14 Aspirin 162 mg 162 mg DAILY CHEW 08/17/16 12:15 08/19/16 09:14 (Sodium Chloride 3% Inj) 500 ml @ 25 mls/hr Q20H IV 08/18/16 11:15 08/18/16 12:21 (Senna Liq) 8.8 mg DAILY OG-TUBE 08/18/16 11:30 08/19/16 09:14 (Heparin Inj) 5,000 units Q8HR SQ 08/19/16 22:00 Allergies Allergies Coded Allergies No Known Allergies (Unverified07/09/16) Exam I&O / VS 08/18/16 08/18/16 08/19/16 15:00 23:00 07:00 Intake Total 1059 ml 2310 ml Output Total 485 ml 400 ml 575 ml Balance 574 ml -400 ml 1735 ml Intake IV Total 750 ml 1735 ml Tube Feeding 249 ml 495 ml Tube Irrigant 80 ml Other 60 ml Output Urine Total 400 ml 400 ml 550 ml Stool Total 0 ml Tube Feeding Residual Discard 0 ml Chest Tube Drainage Total 85 ml 25 ml # Bowel Movements 0 Vital Signs Date Time Temp Pulse Resp B/P Pulse Ox O2 Delivery O2 Flow Rate FiO2 08/19/16 16:41 100 08/19/16 14:00 64 08/19/16 12:30 97 40 08/19/16 12:00 100.1 67 28 96/65 93 96/52 08/19/16 12:00 67 08/19/16 10:00 74 08/19/16 08:10 97 40 08/19/16 08:00 102.1 74 28 105/69 100 110/68 08/19/16 08:00 74 08/19/16 07:00 Mechanical Ventilator 15.00 40 08/19/16 06:00 71 111/66 08/19/16 06:00 71 08/19/16 04:00 99.9 79 28 118/78 100 123/73 08/19/16 04:00 79 08/19/16 03:35 95 40 08/19/16 02:00 83 08/19/16 00:00 99.1 75 25 105/68 97 106/62 08/19/16 00:00 75 08/18/16 23:25 98 40 08/18/16 22:00 73 08/18/16 20:25 100 08/18/16 20:00 101.4 80 26 109/68 96 105/58 08/18/16 20:00 80 08/18/16 19:54 96 40 08/18/16 19:00 Mechanical Ventilator 15.00 40 Exam Comments sedated pupils 2 mm symmetric right hemiplegia. No tonic clonic activity or tremor Objective Radiology Results CT brain--stable left hemisphere cva Micro and Labs Laboratory Tests Test 08/19/16 08/19/16 08/19/16 08/19/16 00:15 04:55 10:05 12:15 Sodium Level 148 149 149 Serum Osmolality 318 323 318 White Blood Count 9.8 Red Blood Count 3.35 Hemoglobin 10.4 Hematocrit 31.3 Mean Corpuscular Volume 93.4 Mean Corpuscular Hemoglobin 30.9 Mean Corpuscular Hemoglobin 33.1 Concent Red Cell Distribution Width 14.5 Platelet Count 116 Mean Platelet Volume 8.6 Neutrophils (%) (Auto) 84.4 Lymphocytes (%) (Auto) 7.7 Monocytes (%) (Auto) 7.6 Eosinophils (%) (Auto) 0.0 Basophils (%) (Auto) 0.3 Neutrophils # (Auto) 8.3 Lymphocytes # (Auto) 0.8 Monocytes # (Auto) 0.7 Eosinophils # (Auto) 0.0 Basophils # (Auto) 0.0 CBC Comment AUTO DIFF Differential Comment AUTO DIFF CONFIRMED Platelet Estimate LOW Platelet Morphology Comment NORMAL Potassium Level 4.6 Chloride Level 112 Carbon Dioxide Level 30.3 Anion Gap 7 Blood Urea Nitrogen 32 Creatinine 1.12 Estimat Glomerular Filtration 69 Rate Random Glucose 143 Calcium Level 7.9 Phosphorus Level 3.1 Magnesium Level 2.7 Total Bilirubin 0.2 Aspartate Amino Transf 22 (AST/SGOT) Alanine Aminotransferase 34 (ALT/SGPT) Alkaline Phosphatase 42 Total Protein 5.5 Albumin 2.5 Urine Color YELLOW Urine Turbidity CLEAR Urine pH 5.5 Urine Specific [place] 1.030 Urine Protein TRACE Urine Glucose (UA) NEG Urine Ketones NEG Urine Occult Blood SMALL Urine Nitrite NEG Urine Bilirubin NEG Urine Urobilinogen LESS THAN 2.0 Urine Leukocyte Esterase NEG Urine RBC 13 Urine WBC 2 Urine Squamous Epithelial <1 Cells Urine Bacteria OCC Urine Mucus FEW Microscopic Urinalysis Comment CATH-CULTURE IND Test 08/19/16 15:15 Blood Gas Puncture Site ART LINE Blood Gas Patient Temperature 98.6 Blood Gas HCO3 28 Blood Gas Base Excess 3.7 Blood Gas Oxygen Saturation 91 Arterial Blood pH 7.41 Arterial Blood Partial 46 Pressure CO2 Arterial Blood Partial 71 Pressure O2 Arterial Blood Oxygen Content 12.7 Arterial Blood 1.6 Carboxyhemoglobin Arterial Blood Methemoglobin 1.0 Blood Gas Hemoglobin 9.8 Oxygen Delivery Device VENTILATOR Blood Gas Ventilator Setting 550/28/PEEP5 Blood Gas Inspired Oxygen 40 Date/Time Procedure Status Source Growth 08/19/16 12:20 Aerobic Blood Culture Received Blood Other Pending 08/19/16 12:20 Anaerobic Blood Culture Received Blood Other Pending 08/19/16 10:30 Gram Stain - Final Resulted Sputum Endotracheal 08/19/16 10:30 Sputum Culture Resulted Sputum Endotracheal Pending 08/19/16 10:05 Urine Culture Received Urine Catheterized Urine Pending 08/16/16 15:45 Aerobic Blood Culture - Preliminary Resulted Blood Peripheral NO GROWTH IN 3 DAYS 08/16/16 15:45 Anaerobic Blood Culture - Preliminary Resulted Blood Peripheral NO GROWTH IN 3 DAYS 08/15/16 22:00 Legionella Antigen - Final Complete Urine Random Urine PRESUMPTIVE NEGATIVE FOR LEGIONELLA P... 08/15/16 22:00 Streptococcus pneumoniae Antigen (M - Final Complete Urine Random Urine PRESUMPTIVE NEGATIVE FOR STREPTOCOCCU... Fabrizio Jean PhD MD August 19, 2016 18:10
--- NOTE | 2016-08-19 19:58 | HHI.NSPN ---
(Henry Flanagan) Note Status Status: Progress Note (Henry Flanagan) Interval History Interval History 08/16: 50-year-old gentleman with a history of a lung mass status post lung biopsy that resulted in pneumothorax for which he required a chest tube placement. Patient has history of lower extremity DVT. Patient became hypoxic and tachypneic and a CTA of the chest revealed bilateral pulmonary embolism. At some point overnight the patient was found to be right hemiparetic/ hemiplegic and a head CT was done that revealed diffuse left-sided hemispheric edema. A brain CT arthrogram revealed occlusion of the left middle cerebral artery close to the bifurcation region. I discussed case with Dr. Okeefe and patient is not a candidate for thrombectomy. He was not a good candidate for TPA either. Patient was intubated . MRI of the brain confirm restriction diffusion along the left MCA territory. There are no areas of intracranial hemorrhage and there is no evidence of midline shift at this point. An IVC filter was placed today. Patient's and son at bedside and I explained to them all details of Mr. Cooley's neurological condition. 08/18: proximal left MCA thrombus with infarct. Not a candidate for thrombectomy or tPA. Head CT from 08/18 showed evolving edema along the left MCA territory. There is no significant midline shift or mass effect at this point. Yesterday started on aspirin and subcutaneous heparin. Family members understand that there is a risk for hemorrhage conversion of the infarct. 08/19: Patient remains intubated & mechanically ventilated. Prior to being seen the patient was sedated due to agitation. Nursing reported that the only movement was with the 2nd right toe. (Henry Flanagan) Labs, Micro, & Vital Signs Results Allergies Coded Allergies Type Severity Reaction Last Updated Verified No Known Allergies 07/09/16 No Recent Impressions Head CT 08/19/16 1500 Signed Impressions: Service Date/Time: Friday, August 19, 2016 16:04 - CONCLUSION: Stable brain appearance Neftaly Abad MD Head CT 08/18/16 0800 Signed Impressions: Service Date/Time: Thursday, August 18, 2016 20:37 - CONCLUSION: Evolving left MCA stroke into an area of encephalomalacia involving the left frontal temporal and parietal lobes. Diane Guzman MD Chest X-Ray 08/18/16 06 Signed Impressions: Service Date/Time: Thursday, August 18, 2016 03:13 - CONCLUSION: No perceptible pneumothorax. Otherwise no change. Neftaly Holden MD Head CT 08/17/16799 Signed Impressions: Service Date/Time: Wednesday, August 17, 2016 08:23 - CONCLUSION: 1. Evolving left MCA infarct. Galindo Vuong MD /////175///05/07 06:00 18:00 06:00 18:00 06:00 18:00 Intake Total 2074 ml 800 ml 2717 ml 1059 ml 2310 ml 1083 ml Output Total 1050 ml 450 ml 790 ml 485 ml 975 ml 460 ml Balance 1024 ml 350 ml 1927 ml 574 ml 1335 ml 623 ml Intake IV Total 2074 ml 800 ml 2232 ml 750 ml 1735 ml 425 ml Tube Feeding 385 ml 249 ml 495 ml 408 ml Tube Irrigant 80 ml Other 100 ml 60 ml 250 ml Output Urine Total 1000 ml 350 ml 750 ml 400 ml 950 ml 425 ml Stool Total 0 ml 0 ml Tube Feeding Residual Discard 0 ml 0 ml Chest Tube Drainage Total 50 ml 100 ml 40 ml 85 ml 25 ml 35 ml # Bowel Movements 0 0 0 0 Laboratory Tests Test 08/16/16 08/17/16 08/17/16 08/17/16 21:00 03:10 04:35 10:32 Serum Osmolality 317 MOSM/KG 312 MOSM/KG 314 MOSM/KG Lactic Acid Level 1.8 mmol/L Sodium Level 143 MEQ/L 144 MEQ/L Potassium Level 4.8 MEQ/L Chloride Level 111 MEQ/L Carbon Dioxide Level 26.0 MEQ/L Anion Gap 7 MEQ/L Blood Urea Nitrogen 20 MG/DL Creatinine 1.05 MG/DL Estimat Glomerular Filtration 75 ML/MIN Rate Random Glucose 178 MG/DL Calcium Level 8.2 MG/DL Total Bilirubin 0.2 MG/DL Aspartate Amino Transf 27 U/L (AST/SGOT) Alanine Aminotransferase 37 U/L (ALT/SGPT) Alkaline Phosphatase 46 U/L Total Protein 5.7 GM/DL Albumin 2.6 GM/DL White Blood Count 22.8 TH/MM3 Red Blood Count 3.85 MIL/MM3 Hemoglobin 11.7 GM/DL Hematocrit 35.3 % Mean Corpuscular Volume 91.6 FL Mean Corpuscular Hemoglobin 30.3 PG Mean Corpuscular Hemoglobin 33.1 % Concent Red Cell Distribution Width 13.9 % Platelet Count 178 TH/MM3 Mean Platelet Volume 8.5 FL Neutrophils (%) (Auto) 92.9 % Lymphocytes (%) (Auto) 4.5 % Monocytes (%) (Auto) 1.1 % Eosinophils (%) (Auto) 1.1 % Basophils (%) (Auto) 0.4 % Neutrophils # (Auto) 21.2 TH/MM3 Lymphocytes # (Auto) 1.0 TH/MM3 Monocytes # (Auto) 0.3 TH/MM3 Eosinophils # (Auto) 0.3 TH/MM3 Basophils # (Auto) 0.1 TH/MM3 CBC Comment DIFF FINAL Differential Comment Test 08/17/16 08/17/16 08/18/16 08/18/16 17:00 23:40 04:00 05:00 Sodium Level 146 MEQ/L 147 MEQ/L Serum Osmolality 318 MOSM/KG 325 MOSM/KG White Blood Count 20.3 TH/MM3 Red Blood Count 3.77 MIL/MM3 Hemoglobin 11.4 GM/DL Hematocrit 34.9 % Mean Corpuscular Volume 92.7 FL Mean Corpuscular Hemoglobin 30.1 PG Mean Corpuscular Hemoglobin 32.5 % Concent Red Cell Distribution Width 14.3 % Platelet Count 166 TH/MM3 Mean Platelet Volume 9.0 FL Neutrophils (%) (Auto) 88.8 % Lymphocytes (%) (Auto) 4.7 % Monocytes (%) (Auto) 6.4 % Eosinophils (%) (Auto) 0.0 % Basophils (%) (Auto) 0.1 % Neutrophils # (Auto) 18.0 TH/MM3 Lymphocytes # (Auto) 0.9 TH/MM3 Monocytes # (Auto) 1.3 TH/MM3 Eosinophils # (Auto) 0.0 TH/MM3 Basophils # (Auto) 0.0 TH/MM3 CBC Comment DIFF FINAL Differential Comment Blood Gas Puncture Site ART LINE Blood Gas Patient Temperature 98.6 Blood Gas HCO3 23 mmol/L Blood Gas Base Excess -2.2 mmol/L Blood Gas Oxygen Saturation 94 % Arterial Blood pH 7.35 Arterial Blood Partial 42 mmHg Pressure CO2 Arterial Blood Partial 87 mmHg Pressure O2 Arterial Blood Oxygen Content 13.6 Vol % Arterial Blood 1.4 % Carboxyhemoglobin Arterial Blood Methemoglobin 1.0 % Blood Gas Hemoglobin 10.2 G/DL Oxygen Delivery Device VENTILATOR Blood Gas Ventilator Setting AC 26/550/5PEEP Blood Gas Inspired Oxygen 40 % Test 08/18/16 08/18/16 08/18/16 08/19/16 05:30 12:57 17:33 00:15 Sodium Level 147 MEQ/L 148 MEQ/L 148 MEQ/L 148 MEQ/L Potassium Level 4.8 MEQ/L Chloride Level 113 MEQ/L Carbon Dioxide Level 30.0 MEQ/L Anion Gap 4 MEQ/L Blood Urea Nitrogen 26 MG/DL Creatinine 1.10 MG/DL Estimat Glomerular Filtration 71 ML/MIN Rate Random Glucose 169 MG/DL Serum Osmolality 322 MOSM/KG 321 MOSM/KG 320 MOSM/KG 318 MOSM/KG Calcium Level 7.9 MG/DL Phosphorus Level 3.3 MG/DL Magnesium Level 2.7 MG/DL Total Bilirubin 0.2 MG/DL Aspartate Amino Transf 16 U/L (AST/SGOT) Alanine Aminotransferase 33 U/L (ALT/SGPT) Alkaline Phosphatase 46 U/L Total Protein 5.7 GM/DL Albumin 2.6 GM/DL Test 08/19/16 08/19/16 08/19/16 08/19/16 04:55 10:05 12:15 15:15 White Blood Count 9.8 TH/MM3 Red Blood Count 3.35 MIL/MM3 Hemoglobin 10.4 GM/DL Hematocrit 31.3 % Mean Corpuscular Volume 93.4 FL Mean Corpuscular Hemoglobin 30.9 PG Mean Corpuscular Hemoglobin 33.1 % Concent Red Cell Distribution Width 14.5 % Platelet Count 116 TH/MM3 Mean Platelet Volume 8.6 FL Neutrophils (%) (Auto) 84.4 % Lymphocytes (%) (Auto) 7.7 % Monocytes (%) (Auto) 7.6 % Eosinophils (%) (Auto) 0.0 % Basophils (%) (Auto) 0.3 % Neutrophils # (Auto) 8.3 TH/MM3 Lymphocytes # (Auto) 0.8 TH/MM3 Monocytes # (Auto) 0.7 TH/MM3 Eosinophils # (Auto) 0.0 TH/MM3 Basophils # (Auto) 0.0 TH/MM3 CBC Comment AUTO DIFF Differential Comment AUTO DIFF CONFIRMED Platelet Estimate LOW Platelet Morphology Comment NORMAL Sodium Level 149 MEQ/L 149 MEQ/L Potassium Level 4.6 MEQ/L Chloride Level 112 MEQ/L Carbon Dioxide Level 30.3 MEQ/L Anion Gap 7 MEQ/L Blood Urea Nitrogen 32 MG/DL Creatinine 1.12 MG/DL Estimat Glomerular Filtration 69 ML/MIN Rate Random Glucose 143 MG/DL Serum Osmolality 323 MOSM/KG 318 MOSM/KG Calcium Level 7.9 MG/DL Phosphorus Level 3.1 MG/DL Magnesium Level 2.7 MG/DL Total Bilirubin 0.2 MG/DL Aspartate Amino Transf 22 U/L (AST/SGOT) Alanine Aminotransferase 34 U/L (ALT/SGPT) Alkaline Phosphatase 42 U/L Total Protein 5.5 GM/DL Albumin 2.5 GM/DL Urine Color YELLOW Urine Turbidity CLEAR Urine pH 5.5 Urine Specific [place] 1.030 Urine Protein TRACE mg/dL Urine Glucose (UA) NEG mg/dL Urine Ketones NEG mg/dL Urine Occult Blood SMALL Urine Nitrite NEG Urine Bilirubin NEG Urine Urobilinogen LESS THAN 2.0 MG/DL Urine Leukocyte Esterase NEG Urine RBC 13 /hpf Urine WBC 2 /hpf Urine Squamous Epithelial <1 /hpf Cells Urine Bacteria OCC /hpf Urine Mucus FEW /lpf Microscopic Urinalysis Comment CATH-CULTURE IND Blood Gas Puncture Site ART LINE Blood Gas Patient Temperature 98.6 Blood Gas HCO3 28 mmol/L Blood Gas Base Excess 3.7 mmol/L Blood Gas Oxygen Saturation 91 % Arterial Blood pH 7.41 Arterial Blood Partial 46 mmHg Pressure CO2 Arterial Blood Partial 71 mmHg Pressure O2 Arterial Blood Oxygen Content 12.7 Vol % Arterial Blood 1.6 % Carboxyhemoglobin Arterial Blood Methemoglobin 1.0 % Blood Gas Hemoglobin 9.8 G/DL Oxygen Delivery Device VENTILATOR Blood Gas Ventilator Setting 550/28/PEEP5 Blood Gas Inspired Oxygen 40 % Test 08/19/16 18:10 Sodium Level 147 MEQ/L Serum Osmolality 316 MOSM/KG Constitutional Vital Signs Date Time Temp Pulse Resp B/P Pulse Ox O2 Delivery O2 Flow Rate FiO2 08/19/16 18:00 64 08/19/16 18:00 81 121/83 140/71 08/19/16 16:41 100 08/19/16 16:00 81 08/19/16 16:00 99.4 81 28 121/83 100 140/71 08/19/16 14:00 64 08/19/16 12:30 97 40 08/19/16 12:00 100.1 67 28 96/65 93 96/52 08/19/16 12:00 67 08/19/16 10:00 74 08/19/16 08:10 97 40 08/19/16 08:00 102.1 74 28 105/69 100 110/68 08/19/16 08:00 74 08/19/16 07:00 Mechanical Ventilator 15.00 40 08/19/16 06:00 71 111/66 08/19/16 06:00 71 08/19/16 04:00 99.9 79 28 118/78 100 123/73 08/19/16 04:00 79 08/19/16 03:35 95 40 08/19/16 02:00 83 08/19/16 00:00 99.1 75 25 105/68 97 106/62 08/19/16 00:00 75 08/18/16 23:25 98 40 08/18/16 22:00 73 08/18/16 20:25 100 08/18/16 20:00 101.4 80 26 109/68 96 105/58 08/18/16 20:00 80 08/19/16 07:00 Intake Total 3369 ml Output Total 1460 ml Balance 1909 ml (Henry Flanagan) Review of Systems/Exam ROS Unable to obtain a ROS due to patient being sedated & intubated. Exam Intubated & sedated Pupils are equal and reactive 2-3 mm Does not follow commands Nursing reports only moving 2nd right toe when sedation weaned down (Henry Flanagan) Medications Current Medications Current Medications Medications (Trade) Dose Ordered Sig/Beto Route Start Time Stop Time Status Last Admin (NS Flush) 2 ml UNSCH PRN IV FLUSH 08/15/16 07:15 (NS Flush) 2 ml UNSCH PRN IV FLUSH 08/15/16 07:15 (NS Flush) 5 ml Q21D IV FLUSH 08/15/16 07:15 08/16/16 08:39 (Heparin Central Flush) 500 units Q21D IV FLUSH 08/15/16 07:15 (NS Flush) 5 ml UNSCH PRN IV FLUSH 08/15/16 07:15 (Heparin Central Flush) 250 units UNSCH PRN IV FLUSH 08/15/16 07:15 (NS Flush) 2 ml BID IV FLUSH 08/15/16 21:00 08/19/16 09:15 (NS Flush) 2 ml UNSCH PRN IV FLUSH 08/15/16 12:15 (Xanax) 0.25 mg Q8H PRN PO 08/15/16 12:15 (Abilify) 15 mg HS PO 08/15/16 21:00 Hold 08/18/16 19:33 (Symbicort 160-4.5 Inh) 2 puff Q12HR INH 08/15/16 21:00 08/19/16 08:59 (Neurontin) 100 mg TID PO 08/15/16 13:00 08/19/16 17:26 ([place] 10-325 Mg) 1 tab Q4H PRN PO 08/15/16 12:15 (Spiriva Inh) 18 mcg DAILY INH 08/16/16 09:00 (Desyrel) 100 mg HS PO 08/15/16 21:00 Hold 08/18/16 19:33 (PROzac) 60 mg DAILY PO 08/16/16 09:00 Hold (Tylenol) 650 mg Q4H PRN PO 08/15/16 12:15 08/19/16 09:52 (Zofran Inj) 4 mg Q6H PRN IV 08/15/16 12:15 (Colace) 100 mg BID PRN PO 08/15/16 12:15 08/19/16 13:14 (Mag-Al Plus Susp Liq) 30 ml Q6H PRN PO 08/15/16 12:15 (Tums Chew) 1,000 mg TID PRN CHEW 08/15/16 12:15 Miscellaneous Information 1 Q361D XX 08/15/16 13:15 08/15/16 19:00 (Chlorhexidine 2% Cloth) 3 pack Taper DAILY@04 TOP 08/16/16 04:00 08/12/17 03:59 08/19/16 04:00 (Chlorhexidine 2% Cloth) 3 pack UNSCH PRN TOP 08/15/16 13:15 (Heparin Inj) 5,000 units UNSCH PRN IV 08/15/16 19:15 Hold Heparin Sodium (Porcine) 2500 units 2,500 units UNSCH PRN IV 08/15/16 19:15 Hold Heparin Sodium/ Dextrose 250 ml @ 0 mls/hr TITRATE IV 08/15/16 13:15 Hold 08/15/16 15:22 (Levaquin 750 Mg Premix Inj) 150 ml @ 100 mls/hr Q24H IV 08/15/16 16:00 08/19/16 17:26 (Apresoline Inj) 10 mg Q2HR PRN IV PUSH 08/15/16 16:00 08/16/16 04:36 (Pepcid Inj) 20 mg Q12H IV PUSH 08/15/16 16:00 08/19/16 17:25 (D50w (Vial) Inj) 25 ml UNSCH PRN IV PUSH 08/15/16 17:30 (Glucagon Inj) 1 mg UNSCH PRN OTHER 08/15/16 17:30 (Dilantin Inj) 100 mg Q8HR IV 08/16/16 14:00 08/19/16 13:14 Chlorhexidine Gluconate 15 ml 15 ml BID@08,20 MT 08/16/16 20:00 08/19/16 08:00 Propofol 100 ml @ 0 mls/hr TITRATE IV 08/16/16 15:30 08/19/16 13:14 (Levophed-Dextrose Drip) 250 ml @ 0 mls/hr TITRATE IV 08/16/16 15:30 08/18/16 14:43 Terbutaline Sulfate 1 mg 1 mg UNSCH PRN SQ 08/16/16 15:15 Sodium Chloride 1,000 ml @ 20 mls/hr Q24H IV 08/16/16 15:30 08/19/16 05:11 (fentaNYL DRIP) 250 ml @ 0 mls/hr TITRATE IV 08/17/16 10:45 08/19/16 12:07 (NovoLOG SUPPLEMENTAL SCALE) 1 Q6HR SQ 08/17/16 12:00 08/19/16 05:10 (SoluMEDROL INJ) 60 mg Q8HR IVP 08/17/16 14:00 08/19/16 13:14 Aspirin 162 mg 162 mg DAILY CHEW 08/17/16 12:15 08/19/16 09:14 (Sodium Chloride 3% Inj) 500 ml @ 25 mls/hr Q20H IV 08/18/16 11:15 08/18/16 12:21 (Senna Liq) 8.8 mg DAILY OG-TUBE 08/18/16 11:30 08/19/16 09:14 (Heparin Inj) 5,000 units Q8HR SQ 08/19/16 22:00 (Lipitor) 20 mg DAILY PO 08/19/16 20:00 (Henry Flanagan) Medical Decision Making MDM Remarks Left MCA stroke. No need for surgical intervention at this time. Some neurological decrease. (Henry Flanagan) Plan Plan Remarks Continue medical treatment with 3% NaCl keeping sodium high for 7-10 days total. (Henry Flanagan) Attending Statement I have personally seen and examined the patient on the date of this note. Pertinent documentation and study results have been reviewed by the undersigned. I have personally developed the treatment plan and performed medical decision making. Agree with findings, exam, and treatment plan as noted above. Patient intubated Pupils are 2-3 mm minimally reactive Right hemiplegia. Movements left upper and lower extremity spontaneous Not following commands Follow-up CT scan head without significant shift Continue intensive care neurologic checks. Maintain sodium 145-155 range for initial 7-10 days post CVA. Remains on 3% hypertonic saline (Chavez Wisdom MD) Henry Flanagan August 19, 2016 19:58 Chavez Wisdom MD August 19, 2016 21:24
[2016-08-19] MEDS: ATORVASTATIN 20 MG TAB PO SCH (20:00)
[2016-08-19] MEDS: IMPLANTED VASCULAR ACCESS DEVICE/PORT - SODIUM CHLORIDE FLUSH PRN IV FLUSH (20:33)
[2016-08-19] MEDS: IMPLANTED VASCULAR ACCESS DEVICE/PORT - SODIUM CHLORIDE FLUSH IV FLUSH SCH (20:33)
[2016-08-19] MEDS: SODIUM CHLORIDE 0.9% FLUSH 10 ML FLUSH IV FLUSH PRN (20:34)
[2016-08-20] VITALS (20 sets, daily range): BP systolic 96–124; BP diastolic 54–75; PULSE 58–68; RESP 24–29; TEMP 98.1–99; O2SAT 92–100
[2016-08-20] MEDS: 3% SALINE INJ 500 ML IV SCH (01:17)
[2016-08-20] MEDS: CHLORHEXIDINE GLUCONATE 2 % 1 PACK (2 CLOTHS) TOP SCH (02:00)
[2016-08-20] MEDS: RESP: ALBUTEROL 2.5 MG/IPRATROPIUM 0.5 MG NEB (SCH) NEB ×5 (04:00→19:41)
[2016-08-20 04:21] LABS: AUTOMATED NEUTROPHIL # 7.7 TH/MM3 (1.8-7.7); BASOPHIL % 0.1 % (0.0-2.0); EOSINOPHIL % 0.1 % (0.0-4.0); HEMO FLAGS DIFF FINAL; LYMPH % 8.8 % (9.0-44.0); LYMPHOCYTE # 0.8 TH/MM3 (1.0-4.8); MEAN CELL VOLUME 92.9 FL (80.0-100.0); MEAN CORPUSCULAR HEMOGLOBIN 31.3 PG (27.0-34.0); MEAN CORPUSCULAR HGB CONC 33.7 % (32.0-36.0); MONO % 6.9 % (0.0-8.0); NEUT % 84.1 % (16.0-70.0); PLATELET COUNT 111 TH/MM3 (150-450); RED BLOOD COUNT 3.23 MIL/MM3 (4.50-5.90); RED CELL DISTRIBUTION WIDTH 14.3 % (11.6-17.2); WHITE BLOOD COUNT 9.2 TH/MM3 (4.0-11.0)
[2016-08-20] MEDS: PROPOFOL 1000 MG/100 ML INJ 100 ML IV SCH ×4 (04:25→20:55)
[2016-08-20] MEDS: FAMOTIDINE 20 MG/2 ML VIAL IV PUSH SCH ×2 (04:26→15:44)
[2016-08-20] MEDS: SODIUM CHLOR 0.9% 1000 ML INJ 1,000 ML IV SCH (04:26)
[2016-08-20 04:40] LABS: SODIUM (NA) 149 MEQ/L (136-145)
--- NOTE | 2016-08-20 05:29 | RADRPT ---
EXAM DATE/TIME: 08/20/2016 03:45 [facility] COMPARISON: CHEST SINGLE AP, August 18, 2016, 3:13. INDICATIONS : Shortness of breath MEDICAL HISTORY : Venous insufficiency. Carcinoma, lung. Chronic obstructive pulmonary disease. Diabetes mellitus SURGICAL HISTORY : Coronary artery stent. ENCOUNTER: Subsequent ACUITY: 4 - 6 days PAIN SCORE: 0/10 LOCATION: Bilateral chest FINDINGS: The cardiac silhouette is normal in transverse diameter. Support lines and tubes are in satisfactory position. A right chest tube is in place. There is no evidence of pneumothorax. [id number] is in p lace via right internal jugular approach with its tip in the superior vena cava. There is patchy alve olar disease on the right compatible with edema or pneumonia. The findings are improved when compared with the prior exam. CONCLUSION: 1. Improving diffuse right-sided opacity. There is no evidence of pneumothorax. Israel Okeefe MD on August 20, 2016 at 5:26 Board Certified Radiologist. This report was verified electronically.
[2016-08-20] MEDS: HEPARIN SODIUM - SQ 10,000 UNITS/ML VIAL SQ SCH ×3 (05:37→20:56)
[2016-08-20] MEDS: INSULIN ASPART SUPPLEMENTAL SCALE SQ SCH ×3 (05:37→18:00)
[2016-08-20] MEDS: methylPREDNISolone SOD SUCC 125 MG/2 ML VIAL IVP SCH ×3 (05:37→20:57)
[2016-08-20] MEDS: PHENYTOIN INJ 100 MG/2 ML VIAL IV SCH ×3 (05:37→20:56)
[2016-08-20 08:24] LABS: ALKALINE PHOSPHATASE 40 U/L (45-117); ALT (GPT) 29 U/L (12-78); AST (GOT) 17 U/L (15-37); BICARBONATE 31.2 MEQ/L (21.0-32.0); BLOOD UREA NITROGEN 32 MG/DL (7-18); CHLORIDE 115 MEQ/L (98-107); GLOMERULAR FILTRATION RATE 95 ML/MIN (>89); MAGNESIUM 2.7 MG/DL (1.5-2.5); POTASSIUM 4.6 MEQ/L (3.5-5.1); TOTAL BILIRUBIN ADULT 0.1 MG/DL (0.2-1.0)
[2016-08-20 08:25] LABS: ANION GAP 3 MEQ/L (5-15)
[2016-08-20] MEDS: BUDESONIDE-FORMOTEROL 160/4.5 MCG INHALER INH SCH ×2 (08:32→19:41)
[2016-08-20] MEDS: ATORVASTATIN 20 MG TAB PO SCH (08:33)
[2016-08-20] MEDS: SENNOSIDES SYRUP 8.8 MG/5 ML CUP OG-TUBE SCH (08:33)
[2016-08-20] MEDS: ASPIRIN 81 MG CHEW TAB CHEW SCH (08:33)
[2016-08-20] MEDS: fentaNYL DRIP 250 ML IV SCH (08:33)
[2016-08-20] MEDS: GABAPENTIN 100 MG CAP PO SCH ×3 (08:33→18:21)
[2016-08-20] MEDS: TIOTROPIUM BROMIDE 18 MCG INH INH SCH (08:33)
[2016-08-20] MEDS: CHLORHEXIDINE 0.12% (ORAL KIT) 15 ML CUP MT SCH ×2 (08:34→20:57)
[2016-08-20] MEDS: SODIUM CHLORIDE 0.9% FLUSH 10 ML FLUSH IV FLUSH SCH ×2 (08:34→20:57)
[2016-08-20] MEDS: IMPLANTED VASCULAR ACCESS DEVICE/PORT - SODIUM CHLORIDE FLUSH PRN IV FLUSH (08:34)
[2016-08-20] MEDS: IMPLANTED VASCULAR ACCESS DEVICE/PORT - SODIUM CHLORIDE FLUSH IV FLUSH SCH (08:34)
[2016-08-20] MEDS: SODIUM CHLORIDE 0.9% FLUSH 10 ML FLUSH IV FLUSH PRN (08:34)
[2016-08-20 08:48] LABS: BLOOD GAS BASE EXCESS 5.2 mmol/L (-2-2); BLOOD GAS CARBOXYHEMOGLOBIN 1.4 % (0-4); BLOOD GAS HCO3 30 mmol/L (22-26); BLOOD GAS METHEMOGLOBIN 1.2 % (0-2); BLOOD GAS O2 HGB SATURATION 92 % (90-100); BLOOD GAS OXYGEN CONTENT 13.3 Vol % (12.0-20.0); BLOOD GAS PCO2 55 mmHg (38-42); BLOOD GAS PO2 79 mmHg (61-120); BLOOD GAS TOTAL HGB 10.3 G/DL (12.0-16.0); TEMP CORR TO 98.6
[2016-08-20 08:49] LABS: CRITICAL VALUE YES; FIO2 50 %; OXYGEN DEVICE VENTILATOR; VENT SETTINGS A/C 24/550/5PEEP
[2016-08-20 08:50] LABS: DRAW SITE ART LINE; STAT NO
--- NOTE | 2016-08-20 12:20 | PD.ONC.PN ---
Subjective Subjective Remarks Afebrile overnight. Patient remains intubated, sedated. and daughter at bedside. Objective Data Date Time Temp Pulse Resp B/P Pulse Ox O2 Delivery O2 Flow Rate FiO2 08/20/16 11:27 97 55 08/20/16 10:00 62 08/20/16 08:17 94 50 08/20/16 08:17 94 50 08/20/16 08:00 65 08/20/16 08:00 98.4 65 29 96/63 93 117/67 08/20/16 07:00 93 Mechanical Ventilator 40 08/20/16 06:00 58 08/20/16 06:00 62 113/74 119/58 08/20/16 04:00 61 08/20/16 04:00 98.8 61 28 113/74 100 124/75 08/20/16 04:00 100 50 08/20/16 02:30 65 08/20/16 01:07 94 40 08/20/16 00:00 63 08/20/16 00:00 99.0 62 28 100/57 94 115/66 08/19/16 23:32 94 40 08/19/16 22:00 62 08/19/16 20:07 100 40 08/19/16 20:00 62 95/67 107/61 08/19/16 20:00 99.8 62 28 95/67 100 107/61 08/19/16 20:00 Mechanical Ventilator 15.00 40 08/19/16 20:00 62 08/19/16 18:00 64 08/19/16 18:00 81 121/83 140/71 08/19/16 16:41 100 08/19/16 16:00 81 08/19/16 16:00 99.4 81 28 121/83 100 140/71 08/19/16 14:00 64 08/19/16 12:30 97 40 08/20/16 08/20/16 08/20/16 07:00 15:00 23:00 Intake Total 1064 ml Output Total 462 ml 0 ml Balance 602 ml 0 ml Result Diagram: 08/20/16 0350 08/20/16 0350 Laboratory Results Laboratory Tests Test 08/19/16 08/19/16 08/19/16 08/19/16 12:15 15:15 18:10 23:00 Sodium Level 149 MEQ/L 147 MEQ/L 148 MEQ/L Serum Osmolality 318 MOSM/KG 316 MOSM/KG 319 MOSM/KG Blood Gas Puncture Site ART LINE Blood Gas Patient Temperature 98.6 Blood Gas HCO3 28 mmol/L Blood Gas Base Excess 3.7 mmol/L Blood Gas Oxygen Saturation 91 % Arterial Blood pH 7.41 Arterial Blood Partial 46 mmHg Pressure CO2 Arterial Blood Partial 71 mmHg Pressure O2 Arterial Blood Oxygen Content 12.7 Vol % Arterial Blood 1.6 % Carboxyhemoglobin Arterial Blood Methemoglobin 1.0 % Blood Gas Hemoglobin 9.8 G/DL Oxygen Delivery Device VENTILATOR Blood Gas Ventilator Setting 550/28/PEEP5 Blood Gas Inspired Oxygen 40 % Test 08/20/16 08/20/16 03:50 08:35 White Blood Count 9.2 TH/MM3 Red Blood Count 3.23 MIL/MM3 Hemoglobin 10.1 GM/DL Hematocrit 30.0 % Mean Corpuscular Volume 92.9 FL Mean Corpuscular Hemoglobin 31.3 PG Mean Corpuscular Hemoglobin 33.7 % Concent Red Cell Distribution Width 14.3 % Platelet Count 111 TH/MM3 Mean Platelet Volume 8.7 FL Neutrophils (%) (Auto) 84.1 % Lymphocytes (%) (Auto) 8.8 % Monocytes (%) (Auto) 6.9 % Eosinophils (%) (Auto) 0.1 % Basophils (%) (Auto) 0.1 % Neutrophils # (Auto) 7.7 TH/MM3 Lymphocytes # (Auto) 0.8 TH/MM3 Monocytes # (Auto) 0.6 TH/MM3 Eosinophils # (Auto) 0.0 TH/MM3 Basophils # (Auto) 0.0 TH/MM3 CBC Comment DIFF FINAL Differential Comment Sodium Level 149 MEQ/L Potassium Level 4.6 MEQ/L Chloride Level 115 MEQ/L Carbon Dioxide Level 31.2 MEQ/L Anion Gap 3 MEQ/L Blood Urea Nitrogen 32 MG/DL Creatinine 0.85 MG/DL Estimat Glomerular Filtration 95 ML/MIN Rate Random Glucose 128 MG/DL Serum Osmolality 322 MOSM/KG Calcium Level 7.7 MG/DL Phosphorus Level 3.4 MG/DL Magnesium Level 2.7 MG/DL Total Bilirubin 0.1 MG/DL Aspartate Amino Transf 17 U/L (AST/SGOT) Alanine Aminotransferase 29 U/L (ALT/SGPT) Alkaline Phosphatase 40 U/L Total Protein 5.2 GM/DL Albumin 2.3 GM/DL Blood Gas Puncture Site ART LINE Blood Gas Patient Temperature 98.6 Blood Gas HCO3 30 mmol/L Blood Gas Base Excess 5.2 mmol/L Blood Gas Oxygen Saturation 92 % Arterial Blood pH 7.36 Arterial Blood Partial 55 mmHg Pressure CO2 Arterial Blood Partial 79 mmHg Pressure O2 Arterial Blood Oxygen Content 13.3 Vol % Arterial Blood 1.4 % Carboxyhemoglobin Arterial Blood Methemoglobin 1.2 % Blood Gas Hemoglobin 10.3 G/DL Oxygen Delivery Device VENTILATOR Blood Gas Ventilator Setting A/C 24/550/5PEEP Blood Gas Inspired Oxygen 50 % Culture Results Microbiology Date/Time Procedure Status Source Growth 08/19/16 10:05 Urine Culture - Preliminary Resulted Urine Catheterized Urine NO GROWTH IN 24 HOURS. 08/19/16 10:30 Gram Stain - Final Resulted Sputum Endotracheal 08/19/16 10:30 Sputum Culture - Preliminary Resulted Sputum Endotracheal RESULTS PENDING 08/19/16 12:15 Aerobic Blood Culture - Preliminary Resulted Blood Other NO GROWTH IN 1 DAY 08/19/16 12:15 Anaerobic Blood Culture - Preliminary Resulted Blood Other NO GROWTH IN 1 DAY 08/19/16 12:20 Aerobic Blood Culture - Preliminary Resulted Blood Other NO GROWTH IN 1 DAY 08/19/16 12:20 Anaerobic Blood Culture - Preliminary Resulted Blood Other NO GROWTH IN 1 DAY Imaging Studies Last 24 hours Impressions Chest X-Ray 08/20/16 0600 Signed Impressions: Service Date/Time: Saturday, August 20, 2016 03:45 - CONCLUSION: 1. Improving diffuse right-sided opacity. There is no evidence of pneumothorax. Israel Okeefe MD Head CT 08/19/16 1500 Signed Impressions: Service Date/Time: Friday, August 19, 2016 16:04 - CONCLUSION: Stable brain appearance Neftaly Abad MD Administered Medications Medications (Trade) Dose Ordered Sig/Beto Route PRN Reason Start Time Stop Time Status Last Admin Dose Admin Sodium Chloride (NS Flush) 2 ml UNSCH PRN IV FLUSH SEE COMMENTS 08/15/16 07:15 08/20/16 08:34 Sodium Chloride (NS Flush) 2 ml UNSCH PRN IV FLUSH FLUSH AFTER USING IV ACCESS 08/15/16 07:15 08/20/16 08:33 Sodium Chloride (NS Flush) 5 ml Q21D IV FLUSH 08/15/16 07:15 08/20/16 08:34 Sodium Chloride (NS Flush) 5 ml UNSCH PRN IV FLUSH SEE LABEL COMMENTS 08/15/16 07:15 08/20/16 08:34 Sodium Chloride (NS Flush) 2 ml BID IV FLUSH 08/15/16 21:00 08/20/16 08:34 Sodium Chloride (NS Flush) 2 ml UNSCH PRN IV FLUSH FLUSH AFTER USING IV ACCESS 08/15/16 12:15 08/20/16 08:33 Aripiprazole (Abilify) 15 mg HS PO 08/15/16 21:00 Hold 08/18/16 19:33 Budesonide/ Formoterol Fumarate (Symbicort 160-4.5 Inh) 2 puff Q12HR INH 08/15/16 21:00 08/20/16 08:32 Gabapentin (Neurontin) 100 mg TID PO 08/15/16 13:00 08/20/16 08:33 Trazodone HCl (Desyrel) 100 mg HS PO 08/15/16 21:00 Hold 08/18/16 19:33 Acetaminophen (Tylenol) 650 mg Q4H PRN PO Temp > 100.4 08/15/16 12:15 08/19/16 09:52 Docusate Sodium (Colace) 100 mg BID PRN PO CONSTIPATION 08/15/16 12:15 08/19/16 13:14 Miscellaneous Information 1 Q361D XX 08/15/16 13:15 08/15/16 19:00 Chlorhexidine Gluconate 3 pack 3 pack Taper DAILY@04 TOP 08/16/16 04:00 08/12/17 03:59 08/20/16 02:00 Heparin Sodium/ Dextrose 250 ml @ 0 mls/hr TITRATE IV 08/15/16 13:15 Hold 08/15/16 15:22 Levofloxacin/ Dextrose (Levaquin 750 Mg Premix Inj) 150 ml @ 100 mls/hr Q24H IV 08/15/16 16:00 08/19/16 17:26 Hydralazine HCl (Apresoline Inj) 10 mg Q2HR PRN IV PUSH BP >150/90 08/15/16 16:00 08/16/16 04:36 Famotidine (Pepcid Inj) 20 mg Q12H IV PUSH 08/15/16 16:00 08/20/16 04:26 Phenytoin Sodium (Dilantin Inj) 100 mg Q8HR IV 08/16/16 14:00 08/20/16 05:37 Chlorhexidine Gluconate 15 ml 15 ml BID@08,20 MT 08/16/16 20:00 08/20/16 08:34 Propofol 100 ml @ 0 mls/hr TITRATE IV 08/16/16 15:30 08/20/16 08:33 Norepinephrine Bitartrate 250 ml @ 0 mls/hr TITRATE IV 08/16/16 15:30 08/18/16 14:43 Sodium Chloride 1,000 ml @ 20 mls/hr Q24H IV 08/16/16 15:30 08/20/16 04:26 Fentanyl Citrate (fentaNYL DRIP) 250 ml @ 0 mls/hr TITRATE IV 08/17/16 10:45 08/20/16 08:33 Insulin Aspart (NovoLOG SUPPLEMENTAL SCALE) 1 Q6HR SQ 08/17/16 12:00 08/19/16 05:10 Methylprednisolone Sodium Succinate (SoluMEDROL INJ) 60 mg Q8HR IVP 08/17/16 14:00 08/20/16 05:37 Aspirin 162 mg 162 mg DAILY CHEW 08/17/16 12:15 08/20/16 08:33 Sodium Chloride (Sodium Chloride 3% Inj) 500 ml @ 25 mls/hr Q20H IV 08/18/16 11:15 08/20/16 01:17 Sennosides (Senna Liq) 8.8 mg DAILY OG-TUBE 08/18/16 11:30 08/20/16 08:33 Heparin Sodium (Porcine) (Heparin Inj) 5,000 units Q8HR SQ 08/19/16 22:00 08/20/16 05:37 Atorvastatin Calcium (Lipitor) 20 mg DAILY PO 08/19/16 20:00 08/20/16 08:33 Objective Remarks GENERAL: Intubated male, supine in bed on mechanical ventilation SKIN: Warm and dry. HEAD: Normocephalic. EYES: No injection or drainage. NECK: Supple, trachea midline. CARDIOVASCULAR: +S1/S2 RESPIRATORY: anterior jama with occasional rhonchi GASTROINTESTINAL: Abdomen nondistended. EXTREMITIES: No cyanosis NEUROLOGICAL: intubated, sedated. Assessment/Plan Problem List: (1) Lung cancer Status: Acute Plan: 08/20: pathology shows invasive poorly differentiated adenocarcinoma of likely lung primary. -- Right upper lobe lung mass measured 4.4 cm with mediastinal, right supraclavicular and right hilar adenopathy. --went to [facility] and had PET scan done which did not show any other distant metastasis. -- Based on the CT scan finding he is clinically stage IIIA. (2) Pulmonary embolism Status: Acute Plan: --has IVC filter. --on heparin prophylaxis and antiplatelet therapy. --s/p IVC filter placement (3) Respiratory failure Status: Acute Plan: --on mechanical ventilation --developed a small pneumothorax after the biopsy. ++bilateral subsegmental pulmonary embolism. ++left lower extremity deep venous thrombosis dx more than a month ago (4) Stroke Status: Acute Plan: --ns following Assessment 50y/o male with lung mass admitted with respiratory failure. History: (from original consult): had a port placement on Friday and reportedly doing well, yesterday when the he went for biopsy of lung mass. --was having shortness of breath after the biopsy and he was found to have pneumothorax and he developed worsening respiratory distress. --CT angiogram was done which showed bilateral subsegmental pulmonary embolism. --was admitted to the ICU. A chest tube was placed, reportedly in the evening he developed right-sided paralysis and was found to have a major stroke in the left hemisphere. h/o COPD, LLE DVT, osteopenia Plan 1. pathology returned showing invasive poorly differentiated adenocarcinoma of lung primary. discussed with and daughter with nurse present. discussed that because of the stroke and respiratory failure, we will not be able to provide treatment which would be chemo/radiation at this time. Unlikely that he would recover a good enough performance status to ever tolerate treatment, but I explained we will continue following. questions answered, emotional support provided. feelings normalized. and daughter stated understanding, "we knew he had cancer." " we know he probably won't be able to be treated" they expressed hope that he would be extubated and be able to at least be discharged from hospital and possibly go to [place], as he had apparently stated that's where he would prefer to pass. Attending Statement The exam, history, and the medical decision-making described in the above note were completed with the assistance of the mid-level provider. I reviewed and agree with the findings presented. I attest that I had a [id number] encounter with the patient on the same day, and personally performed and documented my assessment and findings in the medical record. Remains on vent sedated. Not moving the right side per nursing staff. Reviewed the pathology. Patient has adenocarcinoma and treatment would include chemo+XRT. However, he is not a candidate for treatment at this time. Prognosis is poor. Mera Souza August 20, 2016 12:20 Kris Murry MD August 20, 2016 17:15
--- NOTE | 2016-08-20 12:48 | HHI.HCPN ---
Reason for visit a. To assist with evaluation and management of symptoms including: Dyspnea, pain b. To assist medical decision maker(s) with: better understanding of current medical conditions; weighing benefits/burdens of medical treatment options; making medical treatment decisions. Subjective/Interval History Mr Cooley remains sedated w Fentanyl and Diprivan. He is having spontaneous movement of L side. Last CT shows evolving L MCA stroke - mild decompression of the L lateral ventricle and slight subfalcine shift. Stroke involves the left frontal temporal and parietal lobes. Family is wanting to speak with Neuro and NeuroSurg re: recovery. CXR shows improvement of pneumothorax as well as improvement of alveolar disease on the right side. There is no repeat CT of the chest relative to PE's. He remains on a Vent with FiO2 55/ Peep 5. 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 They advised family of such. Family remaining hopeful for some level of recovery - will need honest disclosure from specialities to aid family in decision making. Advance Directives Living Will: Never completed Health Care Surrogate: Never completed Durable Power of Cloth Finisher: Never completed Advance Directive Specifics Health Care Surrogate(s): Spouse, Erika Cooley, Objective Vital Signs Date Time Temp Pulse Resp B/P Pulse Ox O2 Delivery O2 Flow Rate FiO2 08/20/16 11:27 97 55 08/20/16 10:00 62 08/20/16 08:17 94 50 08/20/16 08:17 94 50 08/20/16 08:00 65 08/20/16 08:00 98.4 65 29 96/63 93 117/67 08/20/16 07:00 93 Mechanical Ventilator 40 08/20/16 06:00 58 08/20/16 06:00 62 113/74 119/58 08/20/16 04:00 61 08/20/16 04:00 98.8 61 28 113/74 100 124/75 08/20/16 04:00 100 50 08/20/16 02:30 65 08/20/16 01:07 94 40 08/20/16 00:00 63 08/20/16 00:00 99.0 62 28 100/57 94 115/66 08/19/16 23:32 94 40 08/19/16 22:00 62 08/19/16 20:07 100 40 08/19/16 20:00 62 95/67 107/61 08/19/16 20:00 99.8 62 28 95/67 100 107/61 08/19/16 20:00 Mechanical Ventilator 15.00 40 08/19/16 20:00 62 08/19/16 18:00 64 08/19/16 18:00 81 121/83 140/71 08/19/16 16:41 100 08/19/16 16:00 81 08/19/16 16:00 99.4 81 28 121/83 100 140/71 08/19/16 14:00 64 08/19/16 12:30 97 40 Intake & Output 08/20/16 08/20/16 07:00 19:00 Intake Total 2208 ml Output Total 1020 ml 0 ml Balance 1188 ml 0 ml Intake Oral 0 ml IV Total 1250 ml Tube Feeding 758 ml Other 200 ml Output Urine Total 1000 ml Tube Feeding Residual Discard 0 ml 0 ml Chest Tube Drainage Total 20 ml # Bowel Movements 0 Physical Exam CONSTITUTIONAL/GENERAL: This is an adequately nourished patient, sedated on the ventilator TUBES/LINES/DRAINS: ET tube, Simon catheter, chest tube to right mid chest wall , SKIN: No jaundice, rashes, or lesions. Ecchymoses on upper extremities. No wounds seen anteriorly. Skin temperature appropriate. Not diaphoretic. HEAD: Atraumatic. Normocephalic. EYES: Pupils equal and round and reactive. . No scleral icterus. No injection or drainage. ENT: Nose without bleeding or purulent drainage. Throat without visible erythema , exudates, masses, or lesions. NECK: Trachea midline. Supple, nontender. No palpable thyroid enlargement or nodularity. CARDIOVASCULAR: Regular rate and rhythm without murmurs, gallops, or rubs. No JVD. Peripheral pulses symmetric. RESPIRATORY/CHEST: Chest tube to right mid chest wall. Symmetric, unlabored respirations. Clear to auscultation; equal bilaterally. No wheezes, rales, or rhonchi. GASTROINTESTINAL: Abdomen soft, non-tender, nondistended. No hepato-splenomegaly , or palpable masses. No guarding. Bowel sounds present. GENITOURINARY: Without palpable bladder distension. Simon catheter in place. MUSCULOSKELETAL: Extremities without clubbing, cyanosis, or edema. No joint tenderness or effusion noted. No calf tenderness. No mottling or clubbing. LYMPHATICS: No palpable cervical or supraclavicular adenopathy. NEUROLOGICAL: Sedated on a ventilator. PSYCHIATRIC: Unable to assess due to clinical status Diagnostic Tests Laboratory Laboratory Tests Test 08/17/16 08/17/16 08/18/16 08/18/16 17:00 23:40 04:00 05:00 Sodium Level 146 MEQ/L 147 MEQ/L (136-145) (136-145) Serum Osmolality 318 MOSM/KG 325 MOSM/KG (275-295) (275-295) White Blood Count 20.3 TH/MM3 (4.0-11.0) Red Blood Count 3.77 MIL/MM3 (4.50-5.90) Hemoglobin 11.4 GM/DL (13.0-17.0) Hematocrit 34.9 % (39.0-51.0) Mean Corpuscular Volume 92.7 FL (80.0-100.0) Mean Corpuscular Hemoglobin 30.1 PG (27.0-34.0) Mean Corpuscular Hemoglobin 32.5 % Concent (32.0-36.0) Red Cell Distribution Width 14.3 % (11.6-17.2) Platelet Count 166 TH/MM3 (150-450) Mean Platelet Volume 9.0 FL (7.0-11.0) Neutrophils (%) (Auto) 88.8 % (16.0-70.0) Lymphocytes (%) (Auto) 4.7 % (9.0-44.0) Monocytes (%) (Auto) 6.4 % (0.0-8.0) Eosinophils (%) (Auto) 0.0 % (0.0-4.0) Basophils (%) (Auto) 0.1 % (0.0-2.0) Neutrophils # (Auto) 18.0 TH/MM3 (1.8-7.7) Lymphocytes # (Auto) 0.9 TH/MM3 (1.0-4.8) Monocytes # (Auto) 1.3 TH/MM3 (0-0.9) Eosinophils # (Auto) 0.0 TH/MM3 (0-0.4) Basophils # (Auto) 0.0 TH/MM3 (0-0.2) CBC Comment DIFF FINAL Differential Comment Blood Gas Puncture Site ART LINE Blood Gas Patient Temperature 98.6 Blood Gas HCO3 23 mmol/L (22-26) Blood Gas Base Excess -2.2 mmol/L (-2-2) Blood Gas Oxygen Saturation 94 % (90-100) Arterial Blood pH 7.35 (7.380-7.420) Arterial Blood Partial 42 mmHg (38-42) Pressure CO2 Arterial Blood Partial 87 mmHg Pressure O2 (61-120) Arterial Blood Oxygen Content 13.6 Vol % (12.0-20.0) Arterial Blood 1.4 % (0-4) Carboxyhemoglobin Arterial Blood Methemoglobin 1.0 % (0-2) Blood Gas Hemoglobin 10.2 G/DL (12.0-16.0) Oxygen Delivery Device VENTILATOR Blood Gas Ventilator Setting AC 26/550/5PEEP Blood Gas Inspired Oxygen 40 % Test 08/18/16 08/18/16 08/18/16 08/19/16 05:30 12:57 17:33 00:15 Sodium Level 147 MEQ/L 148 MEQ/L 148 MEQ/L 148 MEQ/L (136-145) (136-145) (136-145) (136-145) Potassium Level 4.8 MEQ/L (3.5-5.1) Chloride Level 113 MEQ/L (98-107) Carbon Dioxide Level 30.0 MEQ/L (21.0-32.0) Anion Gap 4 MEQ/L (5-15) Blood Urea Nitrogen 26 MG/DL (7-18) Creatinine 1.10 MG/DL (0.60-1.30) Estimat Glomerular Filtration 71 ML/MIN (>89) Rate Random Glucose 169 MG/DL (74-106) Serum Osmolality 322 MOSM/KG 321 MOSM/KG 320 MOSM/KG 318 MOSM/KG (275-295) (275-295) (275-295) (275-295) Calcium Level 7.9 MG/DL (8.5-10.1) Phosphorus Level 3.3 MG/DL (2.5-4.9) Magnesium Level 2.7 MG/DL (1.5-2.5) Total Bilirubin 0.2 MG/DL (0.2-1.0) Aspartate Amino Transf 16 U/L (15-37) (AST/SGOT) Alanine Aminotransferase 33 U/L (12-78) (ALT/SGPT) Alkaline Phosphatase 46 U/L (45-117) Total Protein 5.7 GM/DL (6.4-8.2) Albumin 2.6 GM/DL (3.4-5.0) Test 08/19/16 08/19/16 08/19/16 08/19/16 04:55 10:05 12:15 15:15 White Blood Count 9.8 TH/MM3 (4.0-11.0) Red Blood Count 3.35 MIL/MM3 (4.50-5.90) Hemoglobin 10.4 GM/DL (13.0-17.0) Hematocrit 31.3 % (39.0-51.0) Mean Corpuscular Volume 93.4 FL (80.0-100.0) Mean Corpuscular Hemoglobin 30.9 PG (27.0-34.0) Mean Corpuscular Hemoglobin 33.1 % Concent (32.0-36.0) Red Cell Distribution Width 14.5 % (11.6-17.2) Platelet Count 116 TH/MM3 (150-450) Mean Platelet Volume 8.6 FL (7.0-11.0) Neutrophils (%) (Auto) 84.4 % (16.0-70.0) Lymphocytes (%) (Auto) 7.7 % (9.0-44.0) Monocytes (%) (Auto) 7.6 % (0.0-8.0) Eosinophils (%) (Auto) 0.0 % (0.0-4.0) Basophils (%) (Auto) 0.3 % (0.0-2.0) Neutrophils # (Auto) 8.3 TH/MM3 (1.8-7.7) Lymphocytes # (Auto) 0.8 TH/MM3 (1.0-4.8) Monocytes # (Auto) 0.7 TH/MM3 (0-0.9) Eosinophils # (Auto) 0.0 TH/MM3 (0-0.4) Basophils # (Auto) 0.0 TH/MM3 (0-0.2) CBC Comment AUTO DIFF Differential Comment AUTO DIFF CONFIRMED Platelet Estimate LOW (NORMAL) Platelet Morphology Comment NORMAL (NORMAL) Sodium Level 149 MEQ/L 149 MEQ/L (136-145) (136-145) Potassium Level 4.6 MEQ/L (3.5-5.1) Chloride Level 112 MEQ/L (98-107) Carbon Dioxide Level 30.3 MEQ/L (21.0-32.0) Anion Gap 7 MEQ/L (5-15) Blood Urea Nitrogen 32 MG/DL (7-18) Creatinine 1.12 MG/DL (0.60-1.30) Estimat Glomerular Filtration 69 ML/MIN (>89) Rate Random Glucose 143 MG/DL (74-106) Serum Osmolality 323 MOSM/KG 318 MOSM/KG (275-295) (275-295) Calcium Level 7.9 MG/DL (8.5-10.1) Phosphorus Level 3.1 MG/DL (2.5-4.9) Magnesium Level 2.7 MG/DL (1.5-2.5) Total Bilirubin 0.2 MG/DL (0.2-1.0) Aspartate Amino Transf 22 U/L (15-37) (AST/SGOT) Alanine Aminotransferase 34 U/L (12-78) (ALT/SGPT) Alkaline Phosphatase 42 U/L (45-117) Total Protein 5.5 GM/DL (6.4-8.2) Albumin 2.5 GM/DL (3.4-5.0) Urine Color YELLOW (YELLW/STRAW) Urine Turbidity CLEAR (CLEAR) Urine pH 5.5 (5.0-8.5) Urine Specific [place] 1.030 (1.002-1.035) Urine Protein TRACE mg/dL (NEG-TRACE) Urine Glucose (UA) NEG mg/dL (NEG) Urine Ketones NEG mg/dL (NEG) Urine Occult Blood SMALL (NEG) Urine Nitrite NEG (NEG) Urine Bilirubin NEG (NEG) Urine Urobilinogen LESS THAN 2.0 MG/DL (LESS THAN 2.0) Urine Leukocyte Esterase NEG (NEG) Urine RBC 13 /hpf (0-3) Urine WBC 2 /hpf (0-5) Urine Squamous Epithelial <1 /hpf (0-5) Cells Urine Bacteria OCC /hpf (NONE) Urine Mucus FEW /lpf (OCC) Microscopic Urinalysis Comment CATH-CULTURE IND Blood Gas Puncture Site ART LINE Blood Gas Patient Temperature 98.6 Blood Gas HCO3 28 mmol/L (22-26) Blood Gas Base Excess 3.7 mmol/L (-2-2) Blood Gas Oxygen Saturation 91 % (90-100) Arterial Blood pH 7.41 (7.380-7.420) Arterial Blood Partial 46 mmHg (38-42) Pressure CO2 Arterial Blood Partial 71 mmHg Pressure O2 (61-120) Arterial Blood Oxygen Content 12.7 Vol % (12.0-20.0) Arterial Blood 1.6 % (0-4) Carboxyhemoglobin Arterial Blood Methemoglobin 1.0 % (0-2) Blood Gas Hemoglobin 9.8 G/DL (12.0-16.0) Oxygen Delivery Device VENTILATOR Blood Gas Ventilator Setting 550/28/PEEP5 Blood Gas Inspired Oxygen 40 % Test 08/19/16 08/19/16 08/20/16 08/20/16 18:10 23:00 03:50 08:35 Sodium Level 147 MEQ/L 148 MEQ/L 149 MEQ/L (136-145) (136-145) (136-145) Serum Osmolality 316 MOSM/KG 319 MOSM/KG 322 MOSM/KG (275-295) (275-295) (275-295) White Blood Count 9.2 TH/MM3 (4.0-11.0) Red Blood Count 3.23 MIL/MM3 (4.50-5.90) Hemoglobin 10.1 GM/DL (13.0-17.0) Hematocrit 30.0 % (39.0-51.0) Mean Corpuscular Volume 92.9 FL (80.0-100.0) Mean Corpuscular Hemoglobin 31.3 PG (27.0-34.0) Mean Corpuscular Hemoglobin 33.7 % Concent (32.0-36.0) Red Cell Distribution Width 14.3 % (11.6-17.2) Platelet Count 111 TH/MM3 (150-450) Mean Platelet Volume 8.7 FL (7.0-11.0) Neutrophils (%) (Auto) 84.1 % (16.0-70.0) Lymphocytes (%) (Auto) 8.8 % (9.0-44.0) Monocytes (%) (Auto) 6.9 % (0.0-8.0) Eosinophils (%) (Auto) 0.1 % (0.0-4.0) Basophils (%) (Auto) 0.1 % (0.0-2.0) Neutrophils # (Auto) 7.7 TH/MM3 (1.8-7.7) Lymphocytes # (Auto) 0.8 TH/MM3 (1.0-4.8) Monocytes # (Auto) 0.6 TH/MM3 (0-0.9) Eosinophils # (Auto) 0.0 TH/MM3 (0-0.4) Basophils # (Auto) 0.0 TH/MM3 (0-0.2) CBC Comment DIFF FINAL Differential Comment Potassium Level 4.6 MEQ/L (3.5-5.1) Chloride Level 115 MEQ/L (98-107) Carbon Dioxide Level 31.2 MEQ/L (21.0-32.0) Anion Gap 3 MEQ/L (5-15) Blood Urea Nitrogen 32 MG/DL (7-18) Creatinine 0.85 MG/DL (0.60-1.30) Estimat Glomerular Filtration 95 ML/MIN (>89) Rate Random Glucose 128 MG/DL (74-106) Calcium Level 7.7 MG/DL (8.5-10.1) Phosphorus Level 3.4 MG/DL (2.5-4.9) Magnesium Level 2.7 MG/DL (1.5-2.5) Total Bilirubin 0.1 MG/DL (0.2-1.0) Aspartate Amino Transf 17 U/L (15-37) (AST/SGOT) Alanine Aminotransferase 29 U/L (12-78) (ALT/SGPT) Alkaline Phosphatase 40 U/L (45-117) Total Protein 5.2 GM/DL (6.4-8.2) Albumin 2.3 GM/DL (3.4-5.0) Blood Gas Puncture Site ART LINE Blood Gas Patient Temperature 98.6 Blood Gas HCO3 30 mmol/L (22-26) Blood Gas Base Excess 5.2 mmol/L (-2-2) Blood Gas Oxygen Saturation 92 % (90-100) Arterial Blood pH 7.36 (7.380-7.420) Arterial Blood Partial 55 mmHg (38-42) Pressure CO2 Arterial Blood Partial 79 mmHg Pressure O2 (61-120) Arterial Blood Oxygen Content 13.3 Vol % (12.0-20.0) Arterial Blood 1.4 % (0-4) Carboxyhemoglobin Arterial Blood Methemoglobin 1.2 % (0-2) Blood Gas Hemoglobin 10.3 G/DL (12.0-16.0) Oxygen Delivery Device VENTILATOR Blood Gas Ventilator Setting A/C 24/550/5PEEP Blood Gas Inspired Oxygen 50 % Result Diagram: 08/20/16 0350 08/20/16 0350 Microbiology Microbiology Date/Time Procedure Status Source Growth 08/19/16 10:05 Urine Culture - Preliminary Resulted Urine Catheterized Urine NO GROWTH IN 24 HOURS. 08/19/16 10:30 Gram Stain - Final Resulted Sputum Endotracheal 08/19/16 10:30 Sputum Culture - Preliminary Resulted Sputum Endotracheal RESULTS PENDING 08/19/16 12:15 Aerobic Blood Culture - Preliminary Resulted Blood Other NO GROWTH IN 1 DAY 08/19/16 12:15 Anaerobic Blood Culture - Preliminary Resulted Blood Other NO GROWTH IN 1 DAY 08/19/16 12:20 Aerobic Blood Culture - Preliminary Resulted Blood Other NO GROWTH IN 1 DAY 08/19/16 12:20 Anaerobic Blood Culture - Preliminary Resulted Blood Other NO GROWTH IN 1 DAY Imaging Last 72 hours Impressions Chest X-Ray 08/20/16 0600 Signed Impressions: Service Date/Time: Saturday, August 20, 2016 03:45 - CONCLUSION: 1. Improving diffuse right-sided opacity. There is no evidence of pneumothorax. Israel Okeefe MD Head CT 08/19/16 1500 Signed Impressions: Service Date/Time: Friday, August 19, 2016 16:04 - CONCLUSION: Stable brain appearance Neftaly Abad MD Head CT 08/18/16 0800 Signed Impressions: Service Date/Time: Thursday, August 18, 2016 20:37 - CONCLUSION: Evolving left MCA stroke into an area of encephalomalacia involving the left frontal temporal and parietal lobes. Diane Guzman MD Chest X-Ray 08/18/16 0600 Signed Impressions: Service Date/Time: Thursday, August 18, 2016 03:13 - CONCLUSION: No perceptible pneumothorax. Otherwise no change. Neftaly Holden MD Procedures 08/16/16 IVC filter 08/15/16 intubated 08/15/16 chest tube Other 08/19/16 Pathology: Lung Bx: Invasive poorly differentiated carcinoma, primary lung adenocarcinoma Assessment and Plan Disease Oriented Problem List: (1) Respiratory failure Comment: secondary to Pulmonary embolism (2) Lung cancer Comment: Invasisve Adenocarcinoma - primary lung - not a candidate for treatment at this time (3) Stroke (4) Pulmonary embolism (5) DVT (deep venous thrombosis) Comment: not a candidate for anticoagulation due to nature of brain injury (6) Non-STEMI (non-ST elevated myocardial infarction) Symptom Scale: (1) Pain Comment: History of osteoarthritis (2) Dyspnea Comment: Lung ca, PE and Pneumothorax - w hx of COPD Pertinent Non-Medical Issues Psychosocial: He is , has 1 son, lives in [place], worked in auto body repair and painting, 40 year history smoking, Spiritual: [employer] Legal: This time,His is his legal healthcare decision-maker, she is supported by their sonNeftaly Ethical issues impacting care: Important Contacts Erika Chávez, , Neftaly Chávez, son, Prognosis Prognosis is extremely poor light of the history of events, resulting in a large left brain stroke, recent FL, recent PE, recent DVT, unable to be on anticoagulation due to the nature of hemorrhage in the brain and high risk for further embolisms. Should he survive this event he would have significant neurologic deficits Plan Decision Maker: Erika Chávez, , Code Status: Family unable to decide at this time Family Discussion: Family remains hopeful for some recovery - goals of care remain mixed as new information is discovered. Advised today by Onc that cancer is aggressive - treatment options are Chemo and RXT, but would need to recover from current clinical status before treatment would proceed. Family want to talk w Neurology and NeuroSurg re: recovery. Son Neftaly and Cynthia [place] - spoke with . Family dynamics: [place] is ; Son Neftaly ( biologic son) is on disability - served in [place] and [place] on disability from IED / PTSD. Erika has anxiety disorder. Symptoms: Dyspnea and pain Palliative care phone number provided - will follow during hospital stay. Attestation To help prompt me to consider important information that might be impacting today's encounter and assessment, information from prior notes written by myself or my colleagues may have been "brought forward" into today's note. My signature on this note, however, is an attestation that I personally performed the exam, history, and/or decision-making noted today, and, unless otherwise indicated, the interactions with patient, family, and staff as well as the review of records all occurred today. I also attest that the listed assessment and stated plan reflect my best clinical judgment today based on the combination of historical information, prior notes, and today's exam/ interactions. When time spent is documented, it refers only to time spent today by the signer, or if indicated, combined time spent today by collaborating physician/nurse practitioner. Dionna Frazier August 20, 2016 12:48
[2016-08-20] MEDS: DOCUSATE SODIUM 100 MG CAP PO PRN (13:14)
[2016-08-20] MEDS: LEVOFLOXACIN 750 MG PREMIX INJ 150 ML IV SCH (15:44)
--- NOTE | 2016-08-20 16:57 | RADRPT ---
EXAM DATE/TIME: 08/20/2016 16:25 [facility] COMPARISON: CT BRAIN W/O CONTRAST, August 19, 2016, 16:04. INDICATIONS : Evaluate for stroke. RADIATION DOSE: 50.27 CTDIvol (mGy) MEDICAL HISTORY : Carcinoma, lung. Cardiovascular disease SURGICAL HISTORY : None. ENCOUNTER: Subsequent ACUITY: 1 week PAIN SCALE: Non-responsive LOCATION: Bilateral cranial TECHNIQUE: Multiple contiguous axial images were obtained of the head. Using automated exposure control and adj ustment of the mA and/or kV according to patient size, radiation dose was kept as low as reasonably a chievable to obtain optimal diagnostic quality images. FINDINGS: Again seen is a large nonhemorrhagic infarction involving the left MCA territory. Infarction is stabl e. No midline shift currently seen. Ventricles remain patent with the exception of effacement of the antrum of the left lateral ventricle. This is stable. No new infarctions. No hemorrhage. Suprasellar cistern is partially effaced. This is stable. Paranasal sinuses and mastoid air cells are clear. Calv arium is intact. CONCLUSION: 1. No change in large nonhemorrhagic left MCA territory infarction with some mass effect as detailed above. Murphy Persaud Jr., MD on August 20, 2016 at 16:52 Board Certified Radiologist. This report was verified electronically.
--- NOTE | 2016-08-20 17:18 | HHI.CCPN ---
Subjective Remarks/Hospital Course 08/15: Mr. Cooley is a 50 y/o CM with a PMHx of COPD who continues to smoke and is s/p R lung biopsy secondary to a recently found lung mass presenting with dyspnea. Prior to his biopsy today, he was being treated as an outpatient with a Medrol dose pack with Levaquin for a COPD exacerbation. He endorsed dyspnea on exertion today, but denied any fevers, chest pain, wheezing, cough, or LE edema/tenderness. He has a history of LLE DVT diagnosed in 07/05, but has been off his anticoagulation for approximately 11 days (Previously on Xarelto). He had a port placed 2 days ago and lung biopsy today. He has been short of breath since 1 day prior to the procedure. After his biopsy, he was found to have a small apical pneumothorax on CXR, diaphoretic, and tachypneic with hypoxia of 81 % on room air. He was placed on 4L and improved to 85%. He was then placed on a non-rebreather and transferred to the ICU. On arrival he was tachypneic with oxygen saturation in the upper 80s. CTA showed acute pulmonary embolisms of the BL lower lobes with a small R pneumothorax. Therefore a R sided chest tube was placed and heparin drip without bolus was initiated. The patient has been continued on Levaquin ABX, has been give steroids with multiple breathing treatments, and has been placed on BiPAP. 08/16: Patient was noted to have an elevated troponin and was diagnosed to have a non-ST elevation IA last evening. He was on BiPAP at the time with full facemask. It was noticed that he was not moving the right side of his body when he was turned to administer rectal aspirin and subsequent head CT and CTA revealed significant edema in the left cerebral hemisphere and occluded left MCA with thrombus. Neurology was contacted by Dr. Martínez and due to concern for hemorrhagic transformation heparin was held. Dr. Martínez discussed the case with Dr. Okeefe from interventional radiology who did not feel that the patient was a good candidate for clot retrieval due to high risk for hemorrhagic transformation given the amount of cerebral edema and extent of infarct. Patient was given mannitol. This morning when I evaluated patient was in BiPAP with full facemask with a dense right hemiplegia with some spontaneous movement involving his left upper extremity. He was intubated and placed on mechanical ventilation for airway protection and hyperventilation in view of cerebral edema as well as for borderline respiratory status. Subsequently he underwent MRI brain which showed large left MCA territory infarct with some collateral flow. IVC filter was placed by interventional radiology after discussion with Dr. Murry, his oncologist as patient is now off heparin and is at risk for recurrent PE. 08/17: Remains sedated, orally intubated on mechanical ventilation. On 3% saline overnight. Head CT done this morning shows slight increase in cerebral edema in the area of left MCA territory infarct which appears more hypodense. Remains on Levophed 10mcg/min. Moves left side spontaneously however not following commands. Right hemiplegia persists 08/18: Remains sedated, orally intubated on mechanical ventilation. Remains on 3 % saline, Levophed. Awakens on lightening sedation and moves left side spontaneously. Right hemiplegia persists though mold shifter RN noticed some flickering movement in his fingers on the right. 08/19: Remains sedated, orally intubated on mechanical ventilation. Off Levophed. Awakens on lightening sedation and moves left side spontaneously. Right hemiplegia persists. Tolerating tube feeds. Spiked temperatures overnight. Parr cultures ordered. Suspect central fever versus infection. On Levaquin currently. 08/20: Remains sedated, orally intubated on mechanical ventilation. Awakens on lightening sedation and moves left side spontaneously. Right hemiplegia persists. Tolerating tube feeds. Objective Vital Signs Date Time Temp Pulse Resp B/P Pulse Ox O2 Delivery O2 Flow Rate FiO2 08/20/16 16:05 99 100 08/20/16 14:00 65 08/20/16 12:00 98.1 29 100/64 102/54 08/20/16 07:00 Mechanical Ventilator 08/19/16 20:00 15.00 Intake and Output 08/19/16 08/19/16 08/20/16 08:00 16:00 00:00 Intake Total 2310 ml 1083 ml 1144 ml Output Total 575.0 ml 460 ml 558 ml Balance 1735.0 ml 623 ml 586 ml Result Diagram: 08/20/16 0350 08/20/16 1245 Other Results Laboratory Tests Test 08/19/16 08/19/16 08/20/16 08/20/16 18:10 23:00 03:50 08:35 Sodium Level 147 MEQ/L 148 MEQ/L 149 MEQ/L Serum Osmolality 316 MOSM/KG 319 MOSM/KG 322 MOSM/KG White Blood Count 9.2 TH/MM3 Red Blood Count 3.23 MIL/MM3 Hemoglobin 10.1 GM/DL Hematocrit 30.0 % Mean Corpuscular Volume 92.9 FL Mean Corpuscular Hemoglobin 31.3 PG Mean Corpuscular Hemoglobin 33.7 % Concent Red Cell Distribution Width 14.3 % Platelet Count 111 TH/MM3 Mean Platelet Volume 8.7 FL Neutrophils (%) (Auto) 84.1 % Lymphocytes (%) (Auto) 8.8 % Monocytes (%) (Auto) 6.9 % Eosinophils (%) (Auto) 0.1 % Basophils (%) (Auto) 0.1 % Neutrophils # (Auto) 7.7 TH/MM3 Lymphocytes # (Auto) 0.8 TH/MM3 Monocytes # (Auto) 0.6 TH/MM3 Eosinophils # (Auto) 0.0 TH/MM3 Basophils # (Auto) 0.0 TH/MM3 CBC Comment DIFF FINAL Differential Comment Potassium Level 4.6 MEQ/L Chloride Level 115 MEQ/L Carbon Dioxide Level 31.2 MEQ/L Anion Gap 3 MEQ/L Blood Urea Nitrogen 32 MG/DL Creatinine 0.85 MG/DL Estimat Glomerular Filtration 95 ML/MIN Rate Random Glucose 128 MG/DL Calcium Level 7.7 MG/DL Phosphorus Level 3.4 MG/DL Magnesium Level 2.7 MG/DL Total Bilirubin 0.1 MG/DL Aspartate Amino Transf 17 U/L (AST/SGOT) Alanine Aminotransferase 29 U/L (ALT/SGPT) Alkaline Phosphatase 40 U/L Total Protein 5.2 GM/DL Albumin 2.3 GM/DL Blood Gas Puncture Site ART LINE Blood Gas Patient Temperature 98.6 Blood Gas HCO3 30 mmol/L Blood Gas Base Excess 5.2 mmol/L Blood Gas Oxygen Saturation 92 % Arterial Blood pH 7.36 Arterial Blood Partial 55 mmHg Pressure CO2 Arterial Blood Partial 79 mmHg Pressure O2 Arterial Blood Oxygen Content 13.3 Vol % Arterial Blood 1.4 % Carboxyhemoglobin Arterial Blood Methemoglobin 1.2 % Blood Gas Hemoglobin 10.3 G/DL Oxygen Delivery Device VENTILATOR Blood Gas Ventilator Setting A/C 24/550/5PEEP Blood Gas Inspired Oxygen 50 % Test 08/20/16 12:45 Sodium Level 149 MEQ/L Serum Osmolality 317 MOSM/KG Imaging Last 48 hours Impressions Chest X-Ray 08/20/16 0600 Signed Impressions: Service Date/Time: Saturday, August 20, 2016 03:45 - CONCLUSION: 1. Improving diffuse right-sided opacity. There is no evidence of pneumothorax. Israel Okeefe MD Head CT 08/19/16 1500 Signed Impressions: Service Date/Time: Friday, August 19, 2016 16:04 - CONCLUSION: Stable brain appearance Neftaly Abad MD Last [address] 08/18/16 0800 Signed Impressions: Service Date/Time: Thursday, August 18, 2016 20:37 - CONCLUSION: Evolving left MCA stroke into an area of encephalomalacia involving the left frontal temporal and parietal lobes. Diane Guzman MD Chest X-Ray 08/18/16 0600 Signed Impressions: Service Date/Time: Thursday, August 18, 2016 03:13 - CONCLUSION: No perceptible pneumothorax. Otherwise no change. Neftaly Holden MD Last [address] 08/17/16 0800 Signed Impressions: Service Date/Time: Wednesday, August 17, 2016 08:23 - CONCLUSION: 1. Evolving left MCA infarct. Galindo Vuong MD Head CTA 08/16/16 0207 Signed Impressions: Service Date/Time: Tuesday, August 16, 2016 04:10 - CONCLUSION: Thrombosed left middle cerebral artery with associated large subacute cerebral infarct. Neftaly Hodlen MD Neck CTA 08/16/16 0000 Signed Impressions: Service Date/Time: Tuesday, August 16, 2016 04:10 - CONCLUSION: 1. Extracranial carotids are normal. Also normal vertebral arteries. 2. Known malignant right upper lobe mass. Mediastinal and hilar lymphadenopathy seen in the upper chest. Neftaly Holden MD IVC Filter Placement X-Ray 08/16/16 0000 Signed Impressions: Service Date/Time: Tuesday, August 16, 2016 10:30 - CONCLUSION: Uncomplicated inferior vena cava filter placement as above. Israel Okeefe MD Head Magnetic Resonance Angiography 08/16/16 0000 Signed Impressions: Service Date/Time: Tuesday, August 16, 2016 10:27 - CONCLUSION: Markedly abnormal cerebral perfusion corresponding to the large MCA occlusion on the left. Harshad Campbell MD FACR Head CT 08/16/16 0000 Signed Impressions: Service Date/Time: Tuesday, August 16, 2016 00:56 - CONCLUSION: Large left sided cerebral edema as above, appearance most typical of a subacute middle cerebral artery distribution infarct. No bleed or definite mass. Neftaly Holden MD Chest X-Ray 08/16/16 0000 Signed Impressions: Service Date/Time: Tuesday, August 16, 2016 15:33 - CONCLUSION: 1. Uncomplicated line placement. No evidence of pneumothorax. 2. Decreasing right apical pneumothorax Israel Okeefe MD Chest X-Ray 08/16/16 0000 Signed Impressions: Service Date/Time: Tuesday, August 16, 2016 08:15 - CONCLUSION: 1. Interval intubation. 2. Placement of nasogastric tube with the tip in the distal esophagus. This could be advanced at least 7 cm. 3. Mild interval increase in size the small right apical pneumothorax. 4. Increasing opacity in the right lung base most consistent with infiltrate. Barrett Holman MD Brain MRI 08/16/16 0000 Signed Impressions: Service Date/Time: Tuesday, August 16, 2016 10:27 - CONCLUSION: Large area of infarction involving the left Sylvian region. There is occlusion of the distal left MCA. There is some collateralization distally. Harshad Campbell MD FACR Chest X-Ray 08/15/16 1300 Signed Impressions: Service Date/Time: July 12:55 - CONCLUSION: Stable tiny right apical pneumothorax. Neftaly Rodriguez MD Chest X-Ray 08/15/16 1200 Signed Impressions: Service Date/Time: July 11:51 - CONCLUSION: There is a new tiny apical right pneumothorax. Neftaly Rodriguez MD Last 72 hours Impressions Chest X-Ray 08/15/16 1300 Signed Impressions: Service Date/Time: July 12:55 - CONCLUSION: Stable tiny right apical pneumothorax. Neftaly Rodriguez MD Chest X-Ray 08/15/16 1200 Signed Impressions: Service Date/Time: July 11:51 - CONCLUSION: There is a new tiny apical right pneumothorax. Neftaly Rodriguez MD Chest X-Ray 08/15/16 1030 Signed Impressions: Service Date/Time: July 10:20 - CONCLUSION: No pneumothorax following recent right lung biopsy. Neftaly Rodriguez MD Lung Biopsy CT 08/15/16 0000 Signed Impressions: Service Date/Time: July 08:22 - CONCLUSION: Uncomplicated CT guided biopsy of the right upper lobe lung mass. Neftaly Rodriguez MD Chest X-Ray 08/15/16 0000 Signed Impressions: Service Date/Time: July 07:12 - CONCLUSION: 1. No pneumothorax is visualized. Right chest wall [id number] distal tip is at the cavoatrial junction. 2. Right upper lobe pulmonary mass is again visualized. Neftaly Rodriguez MD CT Angiography 08/15/16 0000 Signed Impressions: Service Date/Time: July 13:22 - CONCLUSION: 1. There is acute appearing PE in the right lower lobe segmental and left lower lobe subsegmental pulmonary arteries. These PE are new since the prior CT from 07/09/2016. 2. Small right pneumothorax. 3. Right upper lobe pulmonary mass remains present and measures 4.9 cm. There is associated mediastinal, right hilar, and right supraclavicular lymphadenopathy suspicious for lymphatic spread of disease. Neftaly Rodriguez MD Objective Remarks HEENT/ Neuro: Sedated, orally intubated, Pallor present, no icterus, tongue/ mucosa moist. Pupils 3 mm bilaterally reacting actively to light. Opens eyes occasionally on lightening sedation. Dense right hemiplegia. Localizes with left upper and lower extremity. Neck: No JVD Chest/Pulm: on mech vent, good air entry bilaterally, minimal wheezing, no crackles. Right sided chest tube in place, no air leak noted. Port over right chest wall. CVS: S1-S2 regular, no murmur GI/abdomen: soft, nontender, bowel sounds sluggish Extremities: warm bilaterally, no edema Date of Insertion: Aug 16, 2016 Line: Central Venous Catheter Side: Left Location: Jugular A/P Assessment and Plan Neuro: Left MCA territory ischemic infarct with cerebral edema Encephalopathy Bipolar Disorder with depression/anxiety Sedation with propofol/ fentanyl, daily sedation vacation. Neurochecks per protocol. Neurology and neurosurgery consulted. Mannitol/ 3% saline currently on hold as serum osmolarity greater than 320. Off mannitol. We will use 3% saline as needed. Continue antiplatelet therapy with aspirin. Repeat head CT 08/20 shows some encephalomalacia in the site of left MCA territory infarct, cerebral edema persists. Monitor neuro status with neuro checks per protocol CV: Hypotension Non-ST elevation IA History of HTN, CAD with IA s/p stent placement(2002) 2-D echo with no evidence of R heart strain. Difficult study due to tachycardia. EF 35-40%. Moderate mid to distal inferior hypokinesis and distal lateral hypokinesis. Trace tricuspid regurgitation. PA peak pressure 53 mmHg. Elevated cardiac enzymes/ EKG consistent with non-ST elevation IA. On aspirin 162mg daily. Cardiology following Off Levophed. Hold all antihypertensives. KVO IV fluids. We will consider adding low-dose beta camila if no further hypotension. Started lipitor 20 mg by mouth daily (08/19) Pulm: Right pneumothorax(resolved) BL PEs on CTA COPD Exacerbation R Lung mass s/p biopsy R sided chest tube to suction Continue mechanical ventilation. Vent bundle, bronchodilators Solumedrol to 60mg Q12H Right sided chest tube in place, no air leak noted. End-tidal CO2 monitoring, attempt keeping PCO2 30-35mm Hg Hold C Pap trials still cerebral edema decreases for the next few days. Renal/: KVO IVF as patient with decreased EF. Strict intake output, monitor and replete electrolites, follow BUN/ creatinine. ID: Continue with empiric abx (Levaquin). sputum cultures and blood cultures repeated on 08/19 for fevers which may be central versus related to infection though patient does not have leukocytosis. Legionella and Streptococcus urinary antigens negative. Heme-onc: DVT/PE/right apical lung mass - poorly differentiated adenocarcinoma on pathology Off anticoagulation with heparin due to large stroke with risk for hemorrhagic transformation. IVC filter placed . Continue aspirin. Started subcutaneous heparin on 08/17 after clearing with neurosurgery. Monitor CBC. Being followed by Dr. Murry from Oncology. Will need full anticoagulation when okay with neurosurgery for DVT/PE. Endocrine: Hx of DM per chart review, not on medications at home SSI per protocol GI: Continue tube feeds with Glucerna. Prophylaxis with Pepcid BID DVT prophylaxis: SCDs. Started subcutaneous heparin after clearance by neurology/neurosurgery Case discussed with Dr. Jean from neurology/neurosurgery/oncology-Dr. Murry on 4 /28 Long discussion with patient's family morning of 08/16 regarding current clinical status and plan of care and they voiced understanding and were agreeable. Also discussed palliative care consult which they are interested in as they did not want long-term mechanical ventilation if patient was not going to do well. On 08/18 : Updated family regarding current clinical status and plan of care and they voiced understanding and were agreeable. 08/19: Patient's family was updated at bedside regarding current clinical status and plan of care and they voiced understanding and were agreeable. I explained need for decrease in cerebral edema prior to initiating sedation vacation than C Pap trials to decide extubation. 08/20: Discussed current clinical status with patient's and daughter this morning in detail including decision for tracheostomy and PEG tube if patient is unable to be weaned off mechanical ventilation. Explained to them that he still has the lung cancer to deal with and he may not be able to get treatment for it unless his functional clinical status improves which looks less likely with a stroke. Condition critical. Time spent on critical care excluding procedures 40 minutes Joseph Harrell MD August 20, 2016 17:18
--- NOTE | 2016-08-20 18:03 | PD.CARD.PN ---
Subjective Subjective Remarks Current Medications Medications (Trade) Dose Ordered Sig/Beto Route Start Time Stop Time Status Last Admin (NS Flush) 2 ml UNSCH PRN IV FLUSH 08/15/16 07:15 08/20/16 08:34 (NS Flush) 2 ml UNSCH PRN IV FLUSH 08/15/16 07:15 08/20/16 08:33 (NS Flush) 5 ml Q21D IV FLUSH 08/15/16 07:15 08/20/16 08:34 (Heparin Central Flush) 500 units Q21D IV FLUSH 08/15/16 07:15 (NS Flush) 5 ml UNSCH PRN IV FLUSH 08/15/16 07:15 08/20/16 08:34 (Heparin Central Flush) 250 units UNSCH PRN IV FLUSH 08/15/16 07:15 (NS Flush) 2 ml BID IV FLUSH 08/15/16 21:00 08/20/16 08:34 (NS Flush) 2 ml UNSCH PRN IV FLUSH 08/15/16 12:15 08/20/16 08:33 (Xanax) 0.25 mg Q8H PRN PO 08/15/16 12:15 (Abilify) 15 mg HS PO 08/15/16 21:00 Hold 08/18/16 19:33 (Symbicort 160-4.5 Inh) 2 puff Q12HR INH 08/15/16 21:00 08/20/16 08:32 (Neurontin) 100 mg TID PO 08/15/16 13:00 08/20/16 12:47 ([place] 10-325 Mg) 1 tab Q4H PRN PO 08/15/16 12:15 (Spiriva Inh) 18 mcg DAILY INH 08/16/16 09:00 (Desyrel) 100 mg HS PO 08/15/16 21:00 Hold 08/18/16 19:33 (PROzac) 60 mg DAILY PO 08/16/16 09:00 Hold (Tylenol) 650 mg Q4H PRN PO 08/15/16 12:15 08/19/16 09:52 (Zofran Inj) 4 mg Q6H PRN IV 08/15/16 12:15 (Colace) 100 mg BID PRN PO 08/15/16 12:15 08/20/16 13:14 (Mag-Al Plus Susp Liq) 30 ml Q6H PRN PO 08/15/16 12:15 (Tums Chew) 1,000 mg TID PRN CHEW 08/15/16 12:15 Miscellaneous Information 1 Q361D XX 08/15/16 13:15 08/15/16 19:00 (Chlorhexidine 2% Cloth) 3 pack Taper DAILY@04 TOP 08/16/16 04:00 08/12/17 03:59 08/20/16 02:00 (Chlorhexidine 2% Cloth) 3 pack UNSCH PRN TOP 08/15/16 13:15 (Heparin Inj) 5,000 units UNSCH PRN IV 08/15/16 19:15 Hold Heparin Sodium (Porcine) 2500 units 2,500 units UNSCH PRN IV 08/15/16 19:15 Hold Heparin Sodium/ Dextrose 250 ml @ 0 mls/hr TITRATE IV 08/15/16 13:15 Hold 08/15/16 15:22 (Levaquin 750 Mg Premix Inj) 150 ml @ 100 mls/hr Q24H IV 08/15/16 16:00 08/20/16 15:44 (Apresoline Inj) 10 mg Q2HR PRN IV PUSH 08/15/16 16:00 08/16/16 04:36 (Pepcid Inj) 20 mg Q12H IV PUSH 08/15/16 16:00 08/20/16 15:44 (D50w (Vial) Inj) 25 ml UNSCH PRN IV PUSH 08/15/16 17:30 (Glucagon Inj) 1 mg UNSCH PRN OTHER 08/15/16 17:30 (Dilantin Inj) 100 mg Q8HR IV 08/16/16 14:00 08/20/16 12:48 Chlorhexidine Gluconate 15 ml 15 ml BID@08,20 MT 08/16/16 20:00 08/20/16 08:34 Propofol 100 ml @ 0 mls/hr TITRATE IV 08/16/16 15:30 08/20/16 13:14 (Levophed-Dextrose Drip) 250 ml @ 0 mls/hr TITRATE IV 08/16/16 15:30 08/18/16 14:43 Terbutaline Sulfate 1 mg 1 mg UNSCH PRN SQ 08/16/16 15:15 Sodium Chloride 1,000 ml @ 20 mls/hr Q24H IV 08/16/16 15:30 08/20/16 04:26 (fentaNYL DRIP) 250 ml @ 0 mls/hr TITRATE IV 08/17/16 10:45 08/20/16 08:33 (NovoLOG SUPPLEMENTAL SCALE) 1 Q6HR SQ 08/17/16 12:00 08/19/16 05:10 (SoluMEDROL INJ) 60 mg Q8HR IVP 08/17/16 14:00 08/20/16 12:47 Aspirin 162 mg 162 mg DAILY CHEW 08/17/16 12:15 08/20/16 08:33 (Sodium Chloride 3% Inj) 500 ml @ 25 mls/hr Q20H IV 08/18/16 11:15 08/20/16 01:17 (Senna Liq) 8.8 mg DAILY OG-TUBE 08/18/16 11:30 08/20/16 08:33 (Heparin Inj) 5,000 units Q8HR SQ 08/19/16 22:00 08/20/16 12:48 (Lipitor) 20 mg DAILY PO 08/19/16 20:00 08/20/16 08:33 Objective Medications Current Medications Medications (Trade) Dose Ordered Sig/Beto Route Start Time Stop Time Status Last Admin (NS Flush) 2 ml UNSCH PRN IV FLUSH 08/15/16 07:15 08/20/16 08:34 (NS Flush) 2 ml UNSCH PRN IV FLUSH 08/15/16 07:15 08/20/16 08:33 (NS Flush) 5 ml Q21D IV FLUSH 08/15/16 07:15 08/20/16 08:34 (Heparin Central Flush) 500 units Q21D IV FLUSH 08/15/16 07:15 (NS Flush) 5 ml UNSCH PRN IV FLUSH 08/15/16 07:15 08/20/16 08:34 (Heparin Central Flush) 250 units UNSCH PRN IV FLUSH 08/15/16 07:15 (NS Flush) 2 ml BID IV FLUSH 08/15/16 21:00 08/20/16 08:34 (NS Flush) 2 ml UNSCH PRN IV FLUSH 08/15/16 12:15 08/20/16 08:33 (Xanax) 0.25 mg Q8H PRN PO 08/15/16 12:15 (Abilify) 15 mg HS PO 08/15/16 21:00 Hold 08/18/16 19:33 (Symbicort 160-4.5 Inh) 2 puff Q12HR INH 08/15/16 21:00 08/20/16 08:32 (Neurontin) 100 mg TID PO 08/15/16 13:00 08/20/16 12:47 ([place] 10-325 Mg) 1 tab Q4H PRN PO 08/15/16 12:15 (Spiriva Inh) 18 mcg DAILY INH 08/16/16 09:00 (Desyrel) 100 mg HS PO 08/15/16 21:00 Hold 08/18/16 19:33 (PROzac) 60 mg DAILY PO 08/16/16 09:00 Hold (Tylenol) 650 mg Q4H PRN PO 08/15/16 12:15 08/19/16 09:52 (Zofran Inj) 4 mg Q6H PRN IV 08/15/16 12:15 (Colace) 100 mg BID PRN PO 08/15/16 12:15 08/20/16 13:14 (Mag-Al Plus Susp Liq) 30 ml Q6H PRN PO 08/15/16 12:15 (Tums Chew) 1,000 mg TID PRN CHEW 08/15/16 12:15 Miscellaneous Information 1 Q361D XX 08/15/16 13:15 08/15/16 19:00 (Chlorhexidine 2% Cloth) 3 pack Taper DAILY@04 TOP 08/16/16 04:00 08/12/17 03:59 08/20/16 02:00 (Chlorhexidine 2% Cloth) 3 pack UNSCH PRN TOP 08/15/16 13:15 (Heparin Inj) 5,000 units UNSCH PRN IV 08/15/16 19:15 Hold Heparin Sodium (Porcine) 2500 units 2,500 units UNSCH PRN IV 08/15/16 19:15 Hold Heparin Sodium/ Dextrose 250 ml @ 0 mls/hr TITRATE IV 08/15/16 13:15 Hold 08/15/16 15:22 (Levaquin 750 Mg Premix Inj) 150 ml @ 100 mls/hr Q24H IV 08/15/16 16:00 08/20/16 15:44 (Apresoline Inj) 10 mg Q2HR PRN IV PUSH 08/15/16 16:00 08/16/16 04:36 (Pepcid Inj) 20 mg Q12H IV PUSH 08/15/16 16:00 08/20/16 15:44 (D50w (Vial) Inj) 25 ml UNSCH PRN IV PUSH 08/15/16 17:30 (Glucagon Inj) 1 mg UNSCH PRN OTHER 08/15/16 17:30 (Dilantin Inj) 100 mg Q8HR IV 08/16/16 14:00 08/20/16 12:48 Chlorhexidine Gluconate 15 ml 15 ml BID@08,20 MT 08/16/16 20:00 08/20/16 08:34 Propofol 100 ml @ 0 mls/hr TITRATE IV 08/16/16 15:30 08/20/16 13:14 (Levophed-Dextrose Drip) 250 ml @ 0 mls/hr TITRATE IV 08/16/16 15:30 08/18/16 14:43 Terbutaline Sulfate 1 mg 1 mg UNSCH PRN SQ 08/16/16 15:15 Sodium Chloride 1,000 ml @ 20 mls/hr Q24H IV 08/16/16 15:30 08/20/16 04:26 (fentaNYL DRIP) 250 ml @ 0 mls/hr TITRATE IV 08/17/16 10:45 08/20/16 08:33 (NovoLOG SUPPLEMENTAL SCALE) 1 Q6HR SQ 08/17/16 12:00 08/19/16 05:10 (SoluMEDROL INJ) 60 mg Q8HR IVP 08/17/16 14:00 08/20/16 12:47 Aspirin 162 mg 162 mg DAILY CHEW 08/17/16 12:15 08/20/16 08:33 (Sodium Chloride 3% Inj) 500 ml @ 25 mls/hr Q20H IV 08/18/16 11:15 08/20/16 01:17 (Senna Liq) 8.8 mg DAILY OG-TUBE 08/18/16 11:30 08/20/16 08:33 (Heparin Inj) 5,000 units Q8HR SQ 08/19/16 22:00 08/20/16 12:48 (Lipitor) 20 mg DAILY PO 08/19/16 20:00 08/20/16 08:33 Vital Signs / I&O Vital Signs Date Time Temp Pulse Resp B/P Pulse Ox O2 Delivery O2 Flow Rate FiO2 08/20/16 17:10 94 60 08/20/16 16:05 99 100 08/20/16 15:16 92 60 08/20/16 14:00 65 08/20/16 12:00 98.1 64 29 100/64 97 102/54 08/20/16 12:00 64 08/20/16 11:27 97 55 08/20/16 10:00 62 08/20/16 08:17 94 50 08/20/16 08:17 94 50 08/20/16 08:00 65 08/20/16 08:00 98.4 65 29 96/63 93 117/67 08/20/16 07:00 93 Mechanical Ventilator 40 08/20/16 06:00 58 08/20/16 06:00 62 113/74 119/58 08/20/16 04:00 61 08/20/16 04:00 98.8 61 28 113/74 100 124/75 08/20/16 04:00 100 50 08/20/16 02:30 65 08/20/16 01:07 94 40 08/20/16 00:00 63 08/20/16 00:00 99.0 62 28 100/57 94 115/66 08/19/16 23:32 94 40 08/19/16 22:00 62 08/19/16 20:07 100 40 08/19/16 20:00 62 95/67 107/61 08/19/16 20:00 99.8 62 28 95/67 100 107/61 08/19/16 20:00 Mechanical Ventilator 15.00 40 08/19/16 20:00 62 I/O 08/19/16 08/19/16 08/19/16 08/20/16 08/20/16 08/20/16 07:00 15:00 23:00 07:00 15:00 23:00 Intake Total 2310 ml 1083 ml 1144 ml 1064 ml 949 ml Output Total 575 ml 460 ml 558 ml 462 ml 500 ml Balance 1735 ml 623 ml 586 ml 602 ml 449 ml Intake Oral 0 ml 0 ml IV Total 1735 ml 425 ml 724 ml 526 ml 435 ml Tube Feeding 495 ml 408 ml 320 ml 438 ml 394 ml Tube Irrigant 80 ml Other 250 ml 100 ml 100 ml 120 ml Output Urine Total 550 ml 425 ml 550 ml 450 ml 325 ml Stool Total 0 ml Tube Feeding Residual Discard 0 ml 0 ml 0 ml Chest Tube Drainage Total 25 ml 35 ml 8 ml 12 ml 175 ml # Bowel Movements 0 0 0 0 Physical Exam GENERAL: Intubated, sedated SKIN: Warm and dry. HEAD: Normocephalic. EYES: No scleral icterus. No injection or drainage. NECK: Supple, trachea midline. No JVD or lymphadenopathy. CARDIOVASCULAR: Regular rate and rhythm without murmurs, gallops, or rubs. RESPIRATORY: Breath sounds equal bilaterally. No accessory muscle use. GASTROINTESTINAL: Abdomen soft, non-tender, nondistended. MUSCULOSKELETAL: No cyanosis, or edema. Laboratory Laboratory Tests Test 08/19/16 08/19/16 08/20/16 08/20/16 18:10 23:00 03:50 08:35 Sodium Level 147 MEQ/L 148 MEQ/L 149 MEQ/L Serum Osmolality 316 MOSM/KG 319 MOSM/KG 322 MOSM/KG White Blood Count 9.2 TH/MM3 Red Blood Count 3.23 MIL/MM3 Hemoglobin 10.1 GM/DL Hematocrit 30.0 % Mean Corpuscular Volume 92.9 FL Mean Corpuscular Hemoglobin 31.3 PG Mean Corpuscular Hemoglobin 33.7 % Concent Red Cell Distribution Width 14.3 % Platelet Count 111 TH/MM3 Mean Platelet Volume 8.7 FL Neutrophils (%) (Auto) 84.1 % Lymphocytes (%) (Auto) 8.8 % Monocytes (%) (Auto) 6.9 % Eosinophils (%) (Auto) 0.1 % Basophils (%) (Auto) 0.1 % Neutrophils # (Auto) 7.7 TH/MM3 Lymphocytes # (Auto) 0.8 TH/MM3 Monocytes # (Auto) 0.6 TH/MM3 Eosinophils # (Auto) 0.0 TH/MM3 Basophils # (Auto) 0.0 TH/MM3 CBC Comment DIFF FINAL Differential Comment Potassium Level 4.6 MEQ/L Chloride Level 115 MEQ/L Carbon Dioxide Level 31.2 MEQ/L Anion Gap 3 MEQ/L Blood Urea Nitrogen 32 MG/DL Creatinine 0.85 MG/DL Estimat Glomerular Filtration 95 ML/MIN Rate Random Glucose 128 MG/DL Calcium Level 7.7 MG/DL Phosphorus Level 3.4 MG/DL Magnesium Level 2.7 MG/DL Total Bilirubin 0.1 MG/DL Aspartate Amino Transf 17 U/L (AST/SGOT) Alanine Aminotransferase 29 U/L (ALT/SGPT) Alkaline Phosphatase 40 U/L Total Protein 5.2 GM/DL Albumin 2.3 GM/DL Blood Gas Puncture Site ART LINE Blood Gas Patient Temperature 98.6 Blood Gas HCO3 30 mmol/L Blood Gas Base Excess 5.2 mmol/L Blood Gas Oxygen Saturation 92 % Arterial Blood pH 7.36 Arterial Blood Partial 55 mmHg Pressure CO2 Arterial Blood Partial 79 mmHg Pressure O2 Arterial Blood Oxygen Content 13.3 Vol % Arterial Blood 1.4 % Carboxyhemoglobin Arterial Blood Methemoglobin 1.2 % Blood Gas Hemoglobin 10.3 G/DL Oxygen Delivery Device VENTILATOR Blood Gas Ventilator Setting A/C 24/550/5PEEP Blood Gas Inspired Oxygen 50 % Test 08/20/16 12:45 Sodium Level 149 MEQ/L Serum Osmolality 317 MOSM/KG Imaging Last Impressions Head CT 08/20/16 1500 Signed Impressions: Service Date/Time: Saturday, August 20, 2016 16:25 - CONCLUSION: 1. No change in large nonhemorrhagic left MCA territory infarction with some mass effect as detailed above. Murphy Persaud Jr., MD Chest X-Ray 08/20/16 0600 Signed Impressions: Service Date/Time: Saturday, August 20, 2016 03:45 - CONCLUSION: 1. Improving diffuse right-sided opacity. There is no evidence of pneumothorax. Israel Okeefe MD Head CTA 08/16/16 0207 Signed Impressions: Service Date/Time: Tuesday, August 16, 2016 04:10 - CONCLUSION: Thrombosed left middle cerebral artery with associated large subacute cerebral infarct. Neftaly Holden MD Neck CTA 08/16/16 0000 Signed Impressions: Service Date/Time: Tuesday, August 16, 2016 04:10 - CONCLUSION: 1. Extracranial carotids are normal. Also normal vertebral arteries. 2. Known malignant right upper lobe mass. Mediastinal and hilar lymphadenopathy seen in the upper chest. Neftaly Holden MD IVC Filter Placement X-Ray 08/16/16 0000 Signed Impressions: Service Date/Time: Tuesday, August 16, 2016 10:30 - CONCLUSION: Uncomplicated inferior vena cava filter placement as above. Israel Okeefe MD Head Magnetic Resonance Angiography 08/16/16 0000 Signed Impressions: Service Date/Time: Tuesday, August 16, 2016 10:27 - CONCLUSION: Markedly abnormal cerebral perfusion corresponding to the large MCA occlusion on the left. Harshad Campbell MD FACR Brain MRI 08/16/16 0000 Signed Impressions: Service Date/Time: Tuesday, August 16, 2016 10:27 - CONCLUSION: Large area of infarction involving the left Sylvian region. There is occlusion of the distal left MCA. There is some collateralization distally. Harshad Campbell MD FACR Lung Biopsy CT 08/15/16 0000 Signed Impressions: Service Date/Time: July 08:22 - CONCLUSION: Uncomplicated CT guided biopsy of the right upper lobe lung mass. Neftaly Rodriguez MD CT Angiography 08/15/16 0000 Signed Impressions: Service Date/Time: July 13:22 - CONCLUSION: 1. There is acute appearing PE in the right lower lobe segmental and left lower lobe subsegmental pulmonary arteries. These PE are new since the prior CT from 07/09/2016. 2. Small right pneumothorax. 3. Right upper lobe pulmonary mass remains present and measures 4.9 cm. There is associated mediastinal, right hilar, and right supraclavicular lymphadenopathy suspicious for lymphatic spread of disease. Neftaly Rodriguez MD Assessment and Plan Problem List: (1) Non-STEMI (non-ST elevated myocardial infarction) (2) Stroke (3) Pneumothorax (4) Pulmonary embolism (5) Cardiomyopathy (6) Lung mass Assessment and Plan Continue ICU care. Pressors weaned. Neuro and NS eval. Continue ASA, initiate high dose statin. Full anticoagulation contraindicated at this time due to a large stroke. Wean vent as tolerated. Varghese May MD August 20, 2016 18:03
[2016-08-20 21:54] LABS: BLOOD GAS BASE EXCESS 5.3 mmol/L (-2-2); BLOOD GAS CARBOXYHEMOGLOBIN 1.5 % (0-4); BLOOD GAS HCO3 30 mmol/L (22-26); BLOOD GAS METHEMOGLOBIN 1.1 % (0-2); BLOOD GAS O2 HGB SATURATION 94 % (90-100); BLOOD GAS OXYGEN CONTENT 12.5 Vol % (12.0-20.0); BLOOD GAS PCO2 47 mmHg (38-42); BLOOD GAS PO2 84 mmHg (61-120); BLOOD GAS TOTAL HGB 9.4 G/DL (12.0-16.0); CRITICAL VALUE NO; OXYGEN DEVICE VENTILATOR; TEMP CORR TO 98.6
[2016-08-20 21:55] LABS: DRAW SITE ART LINE; FIO2 60 %; STAT NO; VENT SETTINGS AC/28/550/PEEP 5
[2016-08-21] VITALS (35 sets, daily range): BP systolic 98–148; BP diastolic 58–102; PULSE 62–85; RESP 28; TEMP 97.7–100.1; O2SAT 91–98
[2016-08-21] MEDS: RESP: ALBUTEROL 2.5 MG/IPRATROPIUM 0.5 MG NEB (SCH) NEB ×6 (00:22→20:12)
[2016-08-21] MEDS: CHLORHEXIDINE GLUCONATE 2 % 1 PACK (2 CLOTHS) TOP SCH (04:00)
[2016-08-21 05:17] LABS: BLOOD GAS BASE EXCESS 5.2 mmol/L (-2-2); BLOOD GAS CARBOXYHEMOGLOBIN 1.5 % (0-4); BLOOD GAS HCO3 30 mmol/L (22-26); BLOOD GAS METHEMOGLOBIN 1.2 % (0-2); BLOOD GAS O2 HGB SATURATION 92 % (90-100); BLOOD GAS OXYGEN CONTENT 12.6 Vol % (12.0-20.0); BLOOD GAS PCO2 46 mmHg (38-42); BLOOD GAS PO2 71 mmHg (61-120); BLOOD GAS TOTAL HGB 9.7 G/DL (12.0-16.0); TEMP CORR TO 98.6
[2016-08-21 05:18] LABS: CRITICAL VALUE NO; DRAW SITE ART LINE; FIO2 60 %; OXYGEN DEVICE VENTILATOR; STAT NO; VENT SETTINGS AC/28/600/PEEP 5
[2016-08-21 05:57] LABS: HEMATOCRIT 28.9 % (39.0-51.0); MEAN CELL VOLUME 91.7 FL (80.0-100.0); MEAN CORPUSCULAR HEMOGLOBIN 31.2 PG (27.0-34.0); PLATELET COUNT 108 TH/MM3 (150-450); RED BLOOD COUNT 3.16 MIL/MM3 (4.50-5.90); RED CELL DISTRIBUTION WIDTH 14.1 % (11.6-17.2); REVIEW FLAG FINAL; WHITE BLOOD COUNT 8.5 TH/MM3 (4.0-11.0)
[2016-08-21] MEDS: PROPOFOL 1000 MG/100 ML INJ 100 ML IV SCH ×4 (06:00→21:48)
[2016-08-21] MEDS: fentaNYL DRIP 250 ML IV SCH (06:00)
[2016-08-21] MEDS: INSULIN ASPART SUPPLEMENTAL SCALE SQ SCH ×5 (06:00→23:54)
[2016-08-21] MEDS: FAMOTIDINE 20 MG/2 ML VIAL IV PUSH SCH ×2 (06:00→16:39)
[2016-08-21] MEDS: 3% SALINE INJ 500 ML IV SCH ×2 (06:01→23:56)
[2016-08-21] MEDS: SODIUM CHLOR 0.9% 1000 ML INJ 1,000 ML IV SCH (06:01)
--- NOTE | 2016-08-21 06:10 | RADRPT ---
EXAM DATE/TIME: 08/21/2016 05:23 [facility] COMPARISON: CHEST SINGLE AP, August 20, 2016, 3:45. INDICATIONS : Emphysema. MEDICAL HISTORY : None. SURGICAL HISTORY : None. ENCOUNTER: Initial ACUITY: 1 day PAIN SCORE: 0/10 LOCATION: Bilateral chest FINDINGS: The cardiac silhouette is enlarged in transverse diameter. A right chest tube is in place. There is n o evidence of pneumothorax. The left lung is free of acute parenchymal opacity. [id number] is in p lace via right internal jugular approach with its tip in the superior vena cava. CONCLUSION: 1. There is no evidence of pneumothorax. Israel Okeefe MD on August 21, 2016 at 6:06 Board Certified Radiologist. This report was verified electronically.
[2016-08-21] MEDS: PHENYTOIN INJ 100 MG/2 ML VIAL IV SCH ×3 (06:13→21:40)
[2016-08-21] MEDS: methylPREDNISolone SOD SUCC 125 MG/2 ML VIAL IVP SCH ×3 (06:14→21:40)
[2016-08-21] MEDS: HEPARIN SODIUM - SQ 10,000 UNITS/ML VIAL SQ SCH ×3 (06:14→21:40)
[2016-08-21] MEDS ORDERED: FUROSEMIDE 20 MG/2 ML VIAL IV PUSH ONE ×2 (07:15→18:00)
[2016-08-21] MEDS: CHLORHEXIDINE 0.12% (ORAL KIT) 15 ML CUP MT SCH ×2 (08:00→21:41)
[2016-08-21] MEDS: GABAPENTIN 100 MG CAP PO SCH ×3 (09:00→17:48)
[2016-08-21] MEDS: SENNOSIDES SYRUP 8.8 MG/5 ML CUP OG-TUBE SCH (09:00)
[2016-08-21] MEDS: SODIUM CHLORIDE 0.9% FLUSH 10 ML FLUSH IV FLUSH SCH ×2 (09:00→21:00)
[2016-08-21] MEDS: ASPIRIN 81 MG CHEW TAB CHEW SCH (09:00)
[2016-08-21] MEDS: TIOTROPIUM BROMIDE 18 MCG INH INH SCH (09:00)
[2016-08-21] MEDS: BUDESONIDE-FORMOTEROL 160/4.5 MCG INHALER INH SCH ×2 (09:00→21:00)
[2016-08-21] MEDS: ATORVASTATIN 20 MG TAB PO SCH (09:00)
--- NOTE | 2016-08-21 09:43 | HHI.CCPN ---
Subjective Remarks/Hospital Course 08/15: Mr. Cooley is a 50 y/o CM with a PMHx of COPD who continues to smoke and is s/p R lung biopsy secondary to a recently found lung mass presenting with dyspnea. Prior to his biopsy today, he was being treated as an outpatient with a Medrol dose pack with Levaquin for a COPD exacerbation. He endorsed dyspnea on exertion today, but denied any fevers, chest pain, wheezing, cough, or LE edema/tenderness. He has a history of LLE DVT diagnosed in 07/05, but has been off his anticoagulation for approximately 11 days (Previously on Xarelto). He had a port placed 2 days ago and lung biopsy today. He has been short of breath since 1 day prior to the procedure. After his biopsy, he was found to have a small apical pneumothorax on CXR, diaphoretic, and tachypneic with hypoxia of 81 % on room air. He was placed on 4L and improved to 85%. He was then placed on a non-rebreather and transferred to the ICU. On arrival he was tachypneic with oxygen saturation in the upper 80s. CTA showed acute pulmonary embolisms of the BL lower lobes with a small R pneumothorax. Therefore a R sided chest tube was placed and heparin drip without bolus was initiated. The patient has been continued on Levaquin ABX, has been give steroids with multiple breathing treatments, and has been placed on BiPAP. 08/16: Patient was noted to have an elevated troponin and was diagnosed to have a non-ST elevation AR last evening. He was on BiPAP at the time with full facemask. It was noticed that he was not moving the right side of his body when he was turned to administer rectal aspirin and subsequent head CT and CTA revealed significant edema in the left cerebral hemisphere and occluded left MCA with thrombus. Neurology was contacted by Dr. Martínez and due to concern for hemorrhagic transformation heparin was held. Dr. Martínez discussed the case with Dr. Okeefe from interventional radiology who did not feel that the patient was a good candidate for clot retrieval due to high risk for hemorrhagic transformation given the amount of cerebral edema and extent of infarct. Patient was given mannitol. This morning when I evaluated patient was in BiPAP with full facemask with a dense right hemiplegia with some spontaneous movement involving his left upper extremity. He was intubated and placed on mechanical ventilation for airway protection and hyperventilation in view of cerebral edema as well as for borderline respiratory status. Subsequently he underwent MRI brain which showed large left MCA territory infarct with some collateral flow. IVC filter was placed by interventional radiology after discussion with Dr. Murry, his oncologist as patient is now off heparin and is at risk for recurrent PE. 08/17: Remains sedated, orally intubated on mechanical ventilation. On 3% saline overnight. Head CT done this morning shows slight increase in cerebral edema in the area of left MCA territory infarct which appears more hypodense. Remains on Levophed 10mcg/min. Moves left side spontaneously however not following commands. Right hemiplegia persists 08/18: Remains sedated, orally intubated on mechanical ventilation. Remains on 3 % saline, Levophed. Awakens on lightening sedation and moves left side spontaneously. Right hemiplegia persists though events and promotions assistant RN noticed some flickering movement in his fingers on the right. 08/19: Remains sedated, orally intubated on mechanical ventilation. Off Levophed. Awakens on lightening sedation and moves left side spontaneously. Right hemiplegia persists. Tolerating tube feeds. Spiked temperatures overnight. Parr cultures ordered. Suspect central fever versus infection. On Levaquin currently. 08/20: Remains sedated, orally intubated on mechanical ventilation. Awakens on lightening sedation and moves left side spontaneously. Right hemiplegia persists. Tolerating tube feeds. 08/21: Sedated, arousable, orally intubated on mechanical ventilation. Right hemiplegia persists. Moving left side spontaneously. Tolerating tube feeds. Starting diuresis with Lasix in view of positive fluid balance to mobilize fluid. Objective Vital Signs Date Time Temp Pulse Resp B/P Pulse Ox O2 Delivery O2 Flow Rate FiO2 08/21/16 08:58 97 60 08/21/16 06:00 62 113/74 119/58 08/21/16 04:00 99.2 28 08/20/16 19:00 Mechanical Ventilator 08/19/16 20:00 15.00 Intake and Output 08/20/16 08/20/16 08/21/16 08:00 16:00 00:00 Intake Total 1064 ml 949 ml 1414 ml Output Total 462.0 ml 500 ml 770 ml Balance 602.0 ml 449 ml 644 ml Result Diagram: 08/21/16 0520 08/21/16 0520 Other Results Microbiology Date/Time Procedure Status Source Growth 08/19/16 10:05 Urine Culture - Final Complete Urine Catheterized Urine NO GROWTH IN 48 HOURS. 08/19/16 10:30 Gram Stain - Final Complete Sputum Endotracheal 08/19/16 10:30 Sputum Culture - Final Complete Sputum Endotracheal HEAVY GROWTH NORMAL RESPIRATORY [place] Laboratory Tests Test 08/20/16 08/21/16 21:40 05:00 Blood Gas Puncture Site ART LINE ART LINE Blood Gas Patient Temperature 98.6 98.6 Blood Gas HCO3 30 mmol/L 30 mmol/L (22-26) (22-26) Blood Gas Base Excess 5.3 mmol/L 5.2 mmol/L (-2-2) (-2-2) Blood Gas Oxygen Saturation 94 % (90-100) 92 % (90-100) Arterial Blood pH 7.41 7.42 (7.380-7.420) (7.380-7.420) Arterial Blood Partial 47 mmHg (38-42) 46 mmHg (38-42) Pressure CO2 Arterial Blood Partial 84 mmHg 71 mmHg Pressure O2 (61-120) (61-120) Arterial Blood Oxygen Content 12.5 Vol % 12.6 Vol % (12.0-20.0) (12.0-20.0) Arterial Blood 1.5 % (0-4) 1.5 % (0-4) Carboxyhemoglobin Arterial Blood Methemoglobin 1.1 % (0-2) 1.2 % (0-2) Blood Gas Hemoglobin 9.4 G/DL 9.7 G/DL (12.0-16.0) (12.0-16.0) Oxygen Delivery Device VENTILATOR VENTILATOR Blood Gas Ventilator Setting AC/28/550/PEEP AC/28/600/PEEP 5 5 Blood Gas Inspired Oxygen 60 % 60 % Imaging Last 48 hours Impressions Chest X-Ray 08/20/16 0600 Signed Impressions: Service Date/Time: Saturday, August 20, 2016 03:45 - CONCLUSION: 1. Improving diffuse right-sided opacity. There is no evidence of pneumothorax. Israel Okeefe MD Head CT 08/19/16 1500 Signed Impressions: Service Date/Time: Friday, August 19, 2016 16:04 - CONCLUSION: Stable brain appearance Neftaly Abad MD Last [address] 08/18/16 0800 Signed Impressions: Service Date/Time: Thursday, August 18, 2016 20:37 - CONCLUSION: Evolving left MCA stroke into an area of encephalomalacia involving the left frontal temporal and parietal lobes. Diane Guzman MD Chest X-Ray 08/18/16 0600 Signed Impressions: Service Date/Time: Thursday, August 18, 2016 03:13 - CONCLUSION: No perceptible pneumothorax. Otherwise no change. Neftaly Holden MD Last [address] 08/17/16 0800 Signed Impressions: Service Date/Time: Wednesday, August 17, 2016 08:23 - CONCLUSION: 1. Evolving left MCA infarct. Galindo Vuong MD Head CTA 08/16/16 0207 Signed Impressions: Service Date/Time: Tuesday, August 16, 2016 04:10 - CONCLUSION: Thrombosed left middle cerebral artery with associated large subacute cerebral infarct. Neftaly Holden MD Neck CTA 08/16/16 0000 Signed Impressions: Service Date/Time: Tuesday, August 16, 2016 04:10 - CONCLUSION: 1. Extracranial carotids are normal. Also normal vertebral arteries. 2. Known malignant right upper lobe mass. Mediastinal and hilar lymphadenopathy seen in the upper chest. Neftaly Holden MD IVC Filter Placement X-Ray 08/16/16 0000 Signed Impressions: Service Date/Time: Tuesday, August 16, 2016 10:30 - CONCLUSION: Uncomplicated inferior vena cava filter placement as above. Israel Okeefe MD Head Magnetic Resonance Angiography 08/16/16 0000 Signed Impressions: Service Date/Time: Tuesday, August 16, 2016 10:27 - CONCLUSION: Markedly abnormal cerebral perfusion corresponding to the large MCA occlusion on the left. Harshad Campbell MD FACR Head CT 08/16/16 0000 Signed Impressions: Service Date/Time: Tuesday, August 16, 2016 00:56 - CONCLUSION: Large left sided cerebral edema as above, appearance most typical of a subacute middle cerebral artery distribution infarct. No bleed or definite mass. Neftaly Holden MD Chest X-Ray 08/16/16 0000 Signed Impressions: Service Date/Time: Tuesday, August 16, 2016 15:33 - CONCLUSION: 1. Uncomplicated line placement. No evidence of pneumothorax. 2. Decreasing right apical pneumothorax Israel Okeefe MD Chest X-Ray 08/16/16 0000 Signed Impressions: Service Date/Time: Tuesday, August 16, 2016 08:15 - CONCLUSION: 1. Interval intubation. 2. Placement of nasogastric tube with the tip in the distal esophagus. This could be advanced at least 7 cm. 3. Mild interval increase in size the small right apical pneumothorax. 4. Increasing opacity in the right lung base most consistent with infiltrate. Barrett Holman MD Brain MRI 08/16/16 0000 Signed Impressions: Service Date/Time: Tuesday, August 16, 2016 10:27 - CONCLUSION: Large area of infarction involving the left Sylvian region. There is occlusion of the distal left MCA. There is some collateralization distally. Harshad Campbell MD FACR Chest X-Ray 08/15/16 1300 Signed Impressions: Service Date/Time: July 12:55 - CONCLUSION: Stable tiny right apical pneumothorax. Neftaly Rodriguez MD Chest X-Ray 08/15/16 1200 Signed Impressions: Service Date/Time: July 11:51 - CONCLUSION: There is a new tiny apical right pneumothorax. Neftaly Rodriguez MD Last 72 hours Impressions Chest X-Ray 08/15/16 1300 Signed Impressions: Service Date/Time: July 12:55 - CONCLUSION: Stable tiny right apical pneumothorax. Neftaly Rodriguez MD Chest X-Ray 08/15/16 1200 Signed Impressions: Service Date/Time: July 11:51 - CONCLUSION: There is a new tiny apical right pneumothorax. Neftaly Rodriguez MD Chest X-Ray 08/15/16 1030 Signed Impressions: Service Date/Time: July 10:20 - CONCLUSION: No pneumothorax following recent right lung biopsy. Neftaly Rodriguez MD Lung Biopsy CT 08/15/16 0000 Signed Impressions: Service Date/Time: July 08:22 - CONCLUSION: Uncomplicated CT guided biopsy of the right upper lobe lung mass. Neftaly Rodriguez MD Chest X-Ray 08/15/16 0000 Signed Impressions: Service Date/Time: July 07:12 - CONCLUSION: 1. No pneumothorax is visualized. Right chest wall [id number] distal tip is at the cavoatrial junction. 2. Right upper lobe pulmonary mass is again visualized. Neftaly Rodriguez MD CT Angiography 08/15/16 0000 Signed Impressions: Service Date/Time: July 13:22 - CONCLUSION: 1. There is acute appearing PE in the right lower lobe segmental and left lower lobe subsegmental pulmonary arteries. These PE are new since the prior CT from 07/09/2016. 2. Small right pneumothorax. 3. Right upper lobe pulmonary mass remains present and measures 4.9 cm. There is associated mediastinal, right hilar, and right supraclavicular lymphadenopathy suspicious for lymphatic spread of disease. Neftaly Rodriguez MD Objective Remarks HEENT/ Neuro: Sedated, orally intubated, Pallor present, no icterus, tongue/ mucosa moist. Pupils 3 mm bilaterally reacting actively to light. Opens eyes occasionally on lightening sedation. Dense right hemiplegia. Localizes with left upper and lower extremity. Neck: No JVD Chest/Pulm: on mech vent, good air entry bilaterally, minimal wheezing, no crackles. Right sided chest tube in place, no air leak noted. Port over right chest wall. CVS: S1-S2 regular, no murmur GI/abdomen: soft, nontender, bowel sounds sluggish Extremities: warm bilaterally, no edema Urinary Catheter: Yes Assessment to: Continue Date of Insertion: Aug 16, 2016 Line: Central Venous Catheter Side: Left Location: Jugular A/P Assessment and Plan Neuro: Left MCA territory ischemic infarct with cerebral edema Encephalopathy Bipolar Disorder with depression/anxiety Sedation with propofol/ fentanyl, daily sedation vacation. Neurochecks per protocol. Neurology and neurosurgery consulted. Off mannitol. Continue 3% saline for cerebral edema, hold for serum osmolarity greater than 320. Continue antiplatelet therapy with aspirin. Repeat head CT 08/20 shows some encephalomalacia in the site of left MCA territory infarct, cerebral edema persists. Follow-up head CT ordered for 5/4 AM. Monitor neuro status with neuro checks per protocol CV: Hypotension Non-ST elevation AR History of HTN, CAD with AR s/p stent placement(2002) 2-D echo with no evidence of R heart strain. Difficult study due to tachycardia. EF 35-40%. Moderate mid to distal inferior hypokinesis and distal lateral hypokinesis. Trace tricuspid regurgitation. PA peak pressure 53 mmHg. Elevated cardiac enzymes/ EKG consistent with non-ST elevation AR. On aspirin 162mg daily. Cardiology following Off Levophed. Hold all antihypertensives. KVO IV fluids. We will consider adding low-dose beta camila if no further hypotension. Started lipitor 20 mg by mouth daily (08/19). Initiated diuresis with Lasix and 08/21 to mobilize fluid Pulm: Right pneumothorax(resolved) BL PEs on CTA COPD Exacerbation R Lung mass s/p biopsy R sided chest tube to suction Continue mechanical ventilation. Vent bundle, bronchodilators Solumedrol 60mg Q12H Right sided chest tube in place, no air leak noted. End-tidal CO2 monitoring, attempt keeping PCO2 30-35mm Hg Hold C Pap trials till cerebral edema decreases for the next few days. Renal/: KVO IVF as patient with decreased EF. Starting diuresis with Lasix on 08/21 as patient has been off Levophed for a few days now. Strict intake output, monitor and replete electrolites, follow BUN/ creatinine. ID: Continue with empiric abx (Levaquin). sputum cultures and blood cultures repeated on 08/19 for fevers which may be central versus related to infection though patient does not have leukocytosis. Legionella and Streptococcus urinary antigens negative. Heme-onc: DVT/PE/right apical lung mass - poorly differentiated adenocarcinoma on pathology Off anticoagulation with heparin due to large stroke with risk for hemorrhagic transformation. IVC filter placed . Continue aspirin. Started subcutaneous heparin on 08/17 after clearing with neurosurgery. Monitor CBC. Thrombocytopenia noted, being followed by Dr. Murry from Oncology. Will need full anticoagulation when okay with neurosurgery for DVT/ PE. Endocrine: Hx of DM per chart review, not on medications at home SSI per protocol GI: Continue tube feeds with Glucerna. Prophylaxis with Pepcid BID DVT prophylaxis: SCDs. Started subcutaneous heparin after clearance by neurology/neurosurgery Case discussed with Dr. Jean from neurology/neurosurgery/oncology-Dr. Murry on Long discussion with patient's family morning of 08/16 regarding current clinical status and plan of care and they voiced understanding and were agreeable. Also discussed palliative care consult which they are interested in as they did not want long-term mechanical ventilation if patient was not going to do well. On 08/18 : Updated family regarding current clinical status and plan of care and they voiced understanding and were agreeable. 08/19: Patient's family was updated at bedside regarding current clinical status and plan of care and they voiced understanding and were agreeable. I explained need for decrease in cerebral edema prior to initiating sedation vacation than C Pap trials to decide extubation. 08/20: Discussed current clinical status with patient's and daughter this morning in detail including decision for tracheostomy and PEG tube if patient is unable to be weaned off mechanical ventilation. Explained to them that he still has the lung cancer to deal with and he may not be able to get treatment for it unless his functional clinical status improves which looks less likely with a stroke. Condition critical. Time spent on critical care excluding procedures 40 minutes Joseph Harrell MD August 21, 2016 09:43
--- NOTE | 2016-08-21 12:02 | PD.ONC.PN ---
Subjective Subjective Remarks Remains intubated, sedated. Nurse report pt able to move left side. His and son at the bedside. Objective Data Date Time Temp Pulse Resp B/P Pulse Ox O2 Delivery O2 Flow Rate FiO2 08/21/16 11:28 94 60 08/21/16 08:58 97 60 08/21/16 07:00 Mechanical Ventilator 60 08/21/16 06:00 62 113/74 119/58 08/21/16 06:00 76 08/21/16 04:10 97 60 08/21/16 04:00 60 08/21/16 04:00 99.2 72 28 118/74 98 121/65 08/21/16 04:00 72 08/21/16 02:00 76 08/21/16 00:22 97 60 08/21/16 00:00 65 08/21/16 00:00 97.7 65 28 102/69 95 104/58 08/21/16 00:00 60 08/20/16 22:34 95 60 08/20/16 22:00 66 08/20/16 20:55 60 08/20/16 20:00 60 08/20/16 20:00 98.6 68 28 115/66 99 102/55 08/20/16 20:00 68 08/20/16 19:37 98 60 08/20/16 19:00 97 Mechanical Ventilator 60 08/20/16 18:00 62 08/20/16 18:00 62 111/72 116/62 08/20/16 17:10 94 60 08/20/16 16:05 99 100 08/20/16 16:00 60 08/20/16 16:00 98.3 67 24 99/54 95 96/54 08/20/16 16:00 67 08/20/16 15:16 92 60 08/20/16 14:00 65 08/20/16 12:00 98.1 64 29 100/64 97 102/54 08/20/16 12:00 64 08/20/16 12:00 55 08/21/16 08/21/16 08/21/16 07:00 15:00 23:00 Intake Total 928 ml Output Total 700 ml Balance 228 ml Result Diagram: 08/21/1651908/21/1620 Laboratory Results Laboratory Tests Test 08/20/16 08/20/16 08/20/163/17 12:45 18:15 21:40 00:10 Sodium Level 149 MEQ/L 150 MEQ/L 149 MEQ/L Serum Osmolality 317 MOSM/KG 316 MOSM/KG 315 MOSM/KG Blood Gas Puncture Site ART LINE Blood Gas Patient Temperature 98.6 Blood Gas HCO3 30 mmol/L Blood Gas Base Excess 5.3 mmol/L Blood Gas Oxygen Saturation 94 % Arterial Blood pH 7.41 Arterial Blood Partial 47 mmHg Pressure CO2 Arterial Blood Partial 84 mmHg Pressure O2 Arterial Blood Oxygen Content 12.5 Vol % Arterial Blood 1.5 % Carboxyhemoglobin Arterial Blood Methemoglobin 1.1 % Blood Gas Hemoglobin 9.4 G/DL Oxygen Delivery Device VENTILATOR Blood Gas Ventilator Setting AC/28/550/PEEP 5 Blood Gas Inspired Oxygen 60 % Test 08/21/16 08/21/16 05:00 05:20 Blood Gas Puncture Site ART LINE Blood Gas Patient Temperature 98.6 Blood Gas HCO3 30 mmol/L Blood Gas Base Excess 5.2 mmol/L Blood Gas Oxygen Saturation 92 % Arterial Blood pH 7.42 Arterial Blood Partial 46 mmHg Pressure CO2 Arterial Blood Partial 71 mmHg Pressure O2 Arterial Blood Oxygen Content 12.6 Vol % Arterial Blood 1.5 % Carboxyhemoglobin Arterial Blood Methemoglobin 1.2 % Blood Gas Hemoglobin 9.7 G/DL Oxygen Delivery Device VENTILATOR Blood Gas Ventilator Setting AC/28/600/PEEP 5 Blood Gas Inspired Oxygen 60 % White Blood Count 8.5 TH/MM3 Red Blood Count 3.16 MIL/MM3 Hemoglobin 9.8 GM/DL Hematocrit 28.9 % Mean Corpuscular Volume 91.7 FL Mean Corpuscular Hemoglobin 31.2 PG Mean Corpuscular Hemoglobin 34.0 % Concent Red Cell Distribution Width 14.1 % Platelet Count 108 TH/MM3 Mean Platelet Volume 8.9 FL Sodium Level 149 MEQ/L Serum Osmolality 316 MOSM/KG B-Type Natriuretic Peptide 1437 PG/ML Culture Results Microbiology Date/Time Procedure Status Source Growth 08/19/16 10:05 Urine Culture - Final Complete Urine Catheterized Urine NO GROWTH IN 48 HOURS. 08/19/16 10:30 Gram Stain - Final Complete Sputum Endotracheal 08/19/16 10:30 Sputum Culture - Final Complete Sputum Endotracheal HEAVY GROWTH NORMAL RESPIRATORY [place] 08/19/16 12:15 Aerobic Blood Culture - Preliminary Resulted Blood Other NO GROWTH IN 2 DAYS 08/19/16 12:15 Anaerobic Blood Culture - Preliminary Resulted Blood Other NO GROWTH IN 2 DAYS 08/19/16 12:20 Aerobic Blood Culture - Preliminary Resulted Blood Other NO GROWTH IN 2 DAYS 08/19/16 12:20 Anaerobic Blood Culture - Preliminary Resulted Blood Other NO GROWTH IN 2 DAYS Imaging Studies Last 24 hours Impressions Chest X-Ray 08/21/16 0000 Signed Impressions: Service Date/Time: Sunday, August 21, 2016 05:23 - CONCLUSION: 1. There is no evidence of pneumothorax. Israel Okeefe MD Head CT 08/20/16 1500 Signed Impressions: Service Date/Time: Saturday, August 20, 2016 16:25 - CONCLUSION: 1. No change in large nonhemorrhagic left MCA territory infarction with some mass effect as detailed above. Murphy Persaud Jr., MD Administered Medications Medications (Trade) Dose Ordered Sig/Beto Route PRN Reason Start Time Stop Time Status Last Admin Dose Admin Sodium Chloride (NS Flush) 2 ml UNSCH PRN IV FLUSH SEE COMMENTS 08/15/16 07:15 08/20/16 08:34 Sodium Chloride (NS Flush) 2 ml UNSCH PRN IV FLUSH FLUSH AFTER USING IV ACCESS 08/15/16 07:15 08/20/16 08:33 Sodium Chloride (NS Flush) 5 ml Q21D IV FLUSH 08/15/16 07:15 08/20/16 08:34 Sodium Chloride (NS Flush) 5 ml UNSCH PRN IV FLUSH SEE LABEL COMMENTS 08/15/16 07:15 08/20/16 08:34 Sodium Chloride (NS Flush) 2 ml BID IV FLUSH 08/15/16 21:00 08/21/16 09:00 Sodium Chloride (NS Flush) 2 ml UNSCH PRN IV FLUSH FLUSH AFTER USING IV ACCESS 08/15/16 12:15 08/20/16 08:33 Aripiprazole (Abilify) 15 mg HS PO 08/15/16 21:00 Hold 08/18/16 19:33 Budesonide/ Formoterol Fumarate (Symbicort 160-4.5 Inh) 2 puff Q12HR INH 08/15/16 21:00 08/20/16 19:41 Gabapentin (Neurontin) 100 mg TID PO 08/15/16 13:00 08/21/16 09:00 Trazodone HCl (Desyrel) 100 mg HS PO 08/15/16 21:00 Hold 08/18/16 19:33 Acetaminophen (Tylenol) 650 mg Q4H PRN PO Temp > 100.4 08/15/16 12:15 08/19/16 09:52 Docusate Sodium (Colace) 100 mg BID PRN PO CONSTIPATION 08/15/16 12:15 08/20/16 13:14 Miscellaneous Information 1 Q361D XX 08/15/16 13:15 08/15/16 19:00 Chlorhexidine Gluconate Taper DAILY@04 TOP 08/16/16 04:00 08/12/17 03:59 08/20/16 02:00 Heparin Sodium/ Dextrose 250 ml @ 0 mls/hr TITRATE IV 08/15/16 13:15 Hold 08/15/16 15:22 Levofloxacin/ Dextrose (Levaquin 750 Mg Premix Inj) 150 ml @ 100 mls/hr Q24H IV 08/15/16 16:00 08/20/16 15:44 Hydralazine HCl (Apresoline Inj) 10 mg Q2HR PRN IV PUSH BP >150/90 08/15/16 16:00 08/16/16 04:36 Famotidine (Pepcid Inj) 20 mg Q12H IV PUSH 08/15/16 16:00 08/21/16 06:00 Phenytoin Sodium (Dilantin Inj) 100 mg Q8HR IV 08/16/16 14:00 08/21/16 06:13 Chlorhexidine Gluconate 15 ml 15 ml BID@08,20 MT 08/16/16 20:00 08/21/16 08:00 Propofol 100 ml @ 0 mls/hr TITRATE IV 08/16/16 15:30 08/21/16 10:38 Norepinephrine Bitartrate 250 ml @ 0 mls/hr TITRATE IV 08/16/16 15:30 08/18/16 14:43 Sodium Chloride 1,000 ml @ 20 mls/hr Q24H IV 08/16/16 15:30 08/21/16 06:01 Fentanyl Citrate (fentaNYL DRIP) 250 ml @ 0 mls/hr TITRATE IV 08/17/16 10:45 08/21/16 06:00 Insulin Aspart (NovoLOG SUPPLEMENTAL SCALE) 1 Q6HR SQ 08/17/16 12:00 08/19/16 05:10 Methylprednisolone Sodium Succinate (SoluMEDROL INJ) 60 mg Q8HR IVP 08/17/16 14:00 08/21/16 06:14 Aspirin 162 mg 162 mg DAILY CHEW 08/17/16 12:15 08/21/16 09:00 Sodium Chloride (Sodium Chloride 3% Inj) 500 ml @ 25 mls/hr Q20H IV 08/18/16 11:15 08/21/16 06:01 Sennosides (Senna Liq) 8.8 mg DAILY OG-TUBE 08/18/16 11:30 08/21/16 09:00 Heparin Sodium (Porcine) (Heparin Inj) 5,000 units Q8HR SQ 08/19/16 22:00 08/21/16 06:14 Atorvastatin Calcium (Lipitor) 20 mg DAILY PO 08/19/16 20:00 08/21/16 09:00 Objective Remarks GENERAL: Sedated SKIN: Warm and dry. HEAD: Normocephalic. ET tube no bleeding. EYES: No scleral icterus. No injection or drainage. NECK: Supple, trachea midline. No JVD or lymphadenopathy. LYMPHATIC: No adenopathy. CARDIOVASCULAR: Regular rate and rhythm without murmurs. RESPIRATORY: Breath sounds equal bilaterally. On vent. GASTROINTESTINAL: Abdomen soft, slightly distended. EXTREMITIES: No cyanosis, or edema. MUSCULOSKELETAL: Adequate muscle tone. 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 -- Right upper lobe lung mass measured 4.4 cm with mediastinal, right supraclavicular and right hilar adenopathy. --went to [facility] and had PET scan done which did not show any other distant metastasis. -- Based on the CT scan finding he is clinically stage IIIA. (2) Pulmonary embolism Status: Acute Plan: --has IVC filter. Not candidate for full anticoagulation at this time. --on heparin prophylaxis and antiplatelet therapy. --s/p IVC filter placement (3) Respiratory failure Status: Acute Plan: --on mechanical ventilation --developed a small pneumothorax after the biopsy. ++bilateral subsegmental pulmonary embolism. ++left lower extremity deep venous thrombosis dx more than a month ago (4) Stroke Status: Acute Plan: --ns following --Right hemiplegia Assessment 50y/o male with lung mass admitted with respiratory failure. History: (from original consult): had a port placement on Friday and reportedly doing well, yesterday when the he went for biopsy of lung mass. --was having shortness of breath after the biopsy and he was found to have pneumothorax and he developed worsening respiratory distress. --CT angiogram was done which showed bilateral subsegmental pulmonary embolism. --was admitted to the ICU. A chest tube was placed, reportedly in the evening he developed right-sided paralysis and was found to have a major stroke in the left hemisphere. h/o COPD, LLE DVT, osteopenia Plan 1. Pathology returned showing invasive poorly differentiated adenocarcinoma of lung primary. Extensive discussion with pt's and his son. They understand the poor prognosis. They just hope that he can wake up and able to go home. They understand that pt is not a candidate for chemo/XRT at this time and the lung cancer will continue to progress. They have may questions which I answered. Kris Murry MD August 21, 2016 12:02
--- NOTE | 2016-08-21 12:47 | HHI.NSPN ---
(Henry Flanagan) Note Status Status: Progress Note (Henry Flanagan) Interval History Interval History 08/16: 50-year-old gentleman with a history of a lung mass status post lung biopsy that resulted in pneumothorax for which he required a chest tube placement. Patient has history of lower extremity DVT. Patient became hypoxic and tachypneic and a CTA of the chest revealed bilateral pulmonary embolism. At some point overnight the patient was found to be right hemiparetic/ hemiplegic and a head CT was done that revealed diffuse left-sided hemispheric edema. A brain CT arthrogram revealed occlusion of the left middle cerebral artery close to the bifurcation region. I discussed case with Dr. Okeefe and patient is not a candidate for thrombectomy. He was not a good candidate for TPA either. Patient was intubated . MRI of the brain confirm restriction diffusion along the left MCA territory. There are no areas of intracranial hemorrhage and there is no evidence of midline shift at this point. An IVC filter was placed today. Patient's and son at bedside and I explained to them all details of Mr. Cooley's neurological condition. 08/18: proximal left MCA thrombus with infarct. Not a candidate for thrombectomy or tPA. Head CT from 08/18 showed evolving edema along the left MCA territory. There is no significant midline shift or mass effect at this point. Yesterday started on aspirin and subcutaneous heparin. Family members understand that there is a risk for hemorrhage conversion of the infarct. 08/19: Patient remains intubated & mechanically ventilated. Prior to being seen the patient was sedated due to agitation. Nursing reported that the only movement was with the 2nd right toe. 08/21: Patient still intubated & mechanically ventilated. He is seen to spontaneously move the LLE although nonpurposefully. (Henry Flanagan) Labs, Micro, & Vital Signs Results Allergies Coded Allergies Type Severity Reaction Last Updated Verified No Known Allergies 07/09/16 No Recent Impressions Chest X-Ray 08/21/16 0000 Signed Impressions: Service Date/Time: Sunday, August 21, 2016 05:23 - CONCLUSION: 1. There is no evidence of pneumothorax. Israel Okeefe MD Head CT 08/20/16 1500 Signed Impressions: Service Date/Time: Saturday, August 20, 2016 16:25 - CONCLUSION: 1. No change in large nonhemorrhagic left MCA territory infarction with some mass effect as detailed above. Murphy Persaud Jr., MD Chest X-Ray 08/20/16 0600 Signed Impressions: Service Date/Time: Saturday, August 20, 2016 03:45 - CONCLUSION: 1. Improving diffuse right-sided opacity. There is no evidence of pneumothorax. Israel Okeefe MD Head CT 08/19/16 1500 Signed Impressions: Service Date/Time: Friday, August 19, 2016 16:04 - CONCLUSION: Stable brain appearance Neftaly Abad MD //////// 06:00 18:00 06:00 18:00 06:00 18:00 Intake Total 2310 ml 1083 ml 2208 ml 949 ml 2342 ml Output Total 975 ml 460 ml 1020 ml 500 ml 1470 ml Balance 1335 ml 623 ml 1188 ml 449 ml 872 ml Intake Oral 0 ml IV Total 1735 ml 425 ml 1250 ml 435 ml 1390 ml Tube Feeding 495 ml 408 ml 758 ml 394 ml 952 ml Tube Irrigant 80 ml Other 250 ml 200 ml 120 ml Output Urine Total 950 ml 425 ml 1000 ml 325 ml 1000 ml Stool Total 0 ml Tube Feeding Residual Discard 0 ml 0 ml 0 ml 0 ml Chest Tube Drainage Total 25 ml 35 ml 20 ml 175 ml 470 ml # Bowel Movements 0 0 0 Laboratory Tests Test 08/18/16 08/18/16 08/19/16 08/19/16 12:57 17:33 00:15 04:55 Sodium Level 148 MEQ/L 148 MEQ/L 148 MEQ/L 149 MEQ/L Serum Osmolality 321 MOSM/KG 320 MOSM/KG 318 MOSM/KG 323 MOSM/KG White Blood Count 9.8 TH/MM3 Red Blood Count 3.35 MIL/MM3 Hemoglobin 10.4 GM/DL Hematocrit 31.3 % Mean Corpuscular Volume 93.4 FL Mean Corpuscular Hemoglobin 30.9 PG Mean Corpuscular Hemoglobin 33.1 % Concent Red Cell Distribution Width 14.5 % Platelet Count 116 TH/MM3 Mean Platelet Volume 8.6 FL Neutrophils (%) (Auto) 84.4 % Lymphocytes (%) (Auto) 7.7 % Monocytes (%) (Auto) 7.6 % Eosinophils (%) (Auto) 0.0 % Basophils (%) (Auto) 0.3 % Neutrophils # (Auto) 8.3 TH/MM3 Lymphocytes # (Auto) 0.8 TH/MM3 Monocytes # (Auto) 0.7 TH/MM3 Eosinophils # (Auto) 0.0 TH/MM3 Basophils # (Auto) 0.0 TH/MM3 CBC Comment AUTO DIFF Differential Comment AUTO DIFF CONFIRMED Platelet Estimate LOW Platelet Morphology Comment NORMAL Potassium Level 4.6 MEQ/L Chloride Level 112 MEQ/L Carbon Dioxide Level 30.3 MEQ/L Anion Gap 7 MEQ/L Blood Urea Nitrogen 32 MG/DL Creatinine 1.12 MG/DL Estimat Glomerular Filtration 69 ML/MIN Rate Random Glucose 143 MG/DL Calcium Level 7.9 MG/DL Phosphorus Level 3.1 MG/DL Magnesium Level 2.7 MG/DL Total Bilirubin 0.2 MG/DL Aspartate Amino Transf 22 U/L (AST/SGOT) Alanine Aminotransferase 34 U/L (ALT/SGPT) Alkaline Phosphatase 42 U/L Total Protein 5.5 GM/DL Albumin 2.5 GM/DL Test 08/19/16 08/19/16 08/19/16 08/19/16 10:05 12:15 15:15 18:10 Urine Color YELLOW Urine Turbidity CLEAR Urine pH 5.5 Urine Specific [place] 1.030 Urine Protein TRACE mg/dL Urine Glucose (UA) NEG mg/dL Urine Ketones NEG mg/dL Urine Occult Blood SMALL Urine Nitrite NEG Urine Bilirubin NEG Urine Urobilinogen LESS THAN 2.0 MG/DL Urine Leukocyte Esterase NEG Urine RBC 13 /hpf Urine WBC 2 /hpf Urine Squamous Epithelial <1 /hpf Cells Urine Bacteria OCC /hpf Urine Mucus FEW /lpf Microscopic Urinalysis Comment CATH-CULTURE IND Sodium Level 149 MEQ/L 147 MEQ/L Serum Osmolality 318 MOSM/KG 316 MOSM/KG Blood Gas Puncture Site ART LINE Blood Gas Patient Temperature 98.6 Blood Gas HCO3 28 mmol/L Blood Gas Base Excess 3.7 mmol/L Blood Gas Oxygen Saturation 91 % Arterial Blood pH 7.41 Arterial Blood Partial 46 mmHg Pressure CO2 Arterial Blood Partial 71 mmHg Pressure O2 Arterial Blood Oxygen Content 12.7 Vol % Arterial Blood 1.6 % Carboxyhemoglobin Arterial Blood Methemoglobin 1.0 % Blood Gas Hemoglobin 9.8 G/DL Oxygen Delivery Device VENTILATOR Blood Gas Ventilator Setting 550/28/PEEP5 Blood Gas Inspired Oxygen 40 % Test 08/19/16 08/20/16 08/20/16 08/20/16 23:00 03:50 08:35 12:45 Sodium Level 148 MEQ/L 149 MEQ/L 149 MEQ/L Serum Osmolality 319 MOSM/KG 322 MOSM/KG 317 MOSM/KG White Blood Count 9.2 TH/MM3 Red Blood Count 3.23 MIL/MM3 Hemoglobin 10.1 GM/DL Hematocrit 30.0 % Mean Corpuscular Volume 92.9 FL Mean Corpuscular Hemoglobin 31.3 PG Mean Corpuscular Hemoglobin 33.7 % Concent Red Cell Distribution Width 14.3 % Platelet Count 111 TH/MM3 Mean Platelet Volume 8.7 FL Neutrophils (%) (Auto) 84.1 % Lymphocytes (%) (Auto) 8.8 % Monocytes (%) (Auto) 6.9 % Eosinophils (%) (Auto) 0.1 % Basophils (%) (Auto) 0.1 % Neutrophils # (Auto) 7.7 TH/MM3 Lymphocytes # (Auto) 0.8 TH/MM3 Monocytes # (Auto) 0.6 TH/MM3 Eosinophils # (Auto) 0.0 TH/MM3 Basophils # (Auto) 0.0 TH/MM3 CBC Comment DIFF FINAL Differential Comment Potassium Level 4.6 MEQ/L Chloride Level 115 MEQ/L Carbon Dioxide Level 31.2 MEQ/L Anion Gap 3 MEQ/L Blood Urea Nitrogen 32 MG/DL Creatinine 0.85 MG/DL Estimat Glomerular Filtration 95 ML/MIN Rate Random Glucose 128 MG/DL Calcium Level 7.7 MG/DL Phosphorus Level 3.4 MG/DL Magnesium Level 2.7 MG/DL Total Bilirubin 0.1 MG/DL Aspartate Amino Transf 17 U/L (AST/SGOT) Alanine Aminotransferase 29 U/L (ALT/SGPT) Alkaline Phosphatase 40 U/L Total Protein 5.2 GM/DL Albumin 2.3 GM/DL Blood Gas Puncture Site ART LINE Blood Gas Patient Temperature 98.6 Blood Gas HCO3 30 mmol/L Blood Gas Base Excess 5.2 mmol/L Blood Gas Oxygen Saturation 92 % Arterial Blood pH 7.36 Arterial Blood Partial 55 mmHg Pressure CO2 Arterial Blood Partial 79 mmHg Pressure O2 Arterial Blood Oxygen Content 13.3 Vol % Arterial Blood 1.4 % Carboxyhemoglobin Arterial Blood Methemoglobin 1.2 % Blood Gas Hemoglobin 10.3 G/DL Oxygen Delivery Device VENTILATOR Blood Gas Ventilator Setting A/C 24/550/5PEEP Blood Gas Inspired Oxygen 50 % Test 08/20/16 08/20/16 08/21/16 08/21/16 18:15 21:40 00:10 05:00 Sodium Level 150 MEQ/L 149 MEQ/L Serum Osmolality 316 MOSM/KG 315 MOSM/KG Blood Gas Puncture Site ART LINE ART LINE Blood Gas Patient Temperature 98.6 98.6 Blood Gas HCO3 30 mmol/L 30 mmol/L Blood Gas Base Excess 5.3 mmol/L 5.2 mmol/L Blood Gas Oxygen Saturation 94 % 92 % Arterial Blood pH 7.41 7.42 Arterial Blood Partial 47 mmHg 46 mmHg Pressure CO2 Arterial Blood Partial 84 mmHg 71 mmHg Pressure O2 Arterial Blood Oxygen Content 12.5 Vol % 12.6 Vol % Arterial Blood 1.5 % 1.5 % Carboxyhemoglobin Arterial Blood Methemoglobin 1.1 % 1.2 % Blood Gas Hemoglobin 9.4 G/DL 9.7 G/DL Oxygen Delivery Device VENTILATOR VENTILATOR Blood Gas Ventilator Setting AC/28/550/PEEP AC/28/600/PEEP 5 5 Blood Gas Inspired Oxygen 60 % 60 % Test 08/21/16 05:20 White Blood Count 8.5 TH/MM3 Red Blood Count 3.16 MIL/MM3 Hemoglobin 9.8 GM/DL Hematocrit 28.9 % Mean Corpuscular Volume 91.7 FL Mean Corpuscular Hemoglobin 31.2 PG Mean Corpuscular Hemoglobin 34.0 % Concent Red Cell Distribution Width 14.1 % Platelet Count 108 TH/MM3 Mean Platelet Volume 8.9 FL Sodium Level 149 MEQ/L Serum Osmolality 316 MOSM/KG B-Type Natriuretic Peptide 1437 PG/ML Constitutional Vital Signs Date Time Temp Pulse Resp B/P Pulse Ox O2 Delivery O2 Flow Rate FiO2 08/21/16 11:28 94 60 08/21/16 08:58 97 60 08/21/16 07:00 Mechanical Ventilator 60 08/21/16 06:00 62 113/74 119/58 08/21/16 06:00 76 08/21/16 04:10 97 60 08/21/16 04:00 60 08/21/16 04:00 99.2 72 28 118/74 98 121/65 08/21/16 04:00 72 08/21/16 02:00 76 08/21/16 00:22 97 60 08/21/16 00:00 65 08/21/16 00:00 97.7 65 28 102/69 95 104/58 08/21/16 00:00 60 08/20/16 22:34 95 60 08/20/16 22:00 66 08/20/16 20:55 60 08/20/16 20:00 60 08/20/16 20:00 98.6 68 28 115/66 99 102/55 08/20/16 20:00 68 08/20/16 19:37 98 60 08/20/16 19:00 97 Mechanical Ventilator 60 08/20/16 18:00 62 08/20/16 18:00 62 111/72 116/62 08/20/16 17:10 94 60 08/20/16 16:05 99 100 08/20/16 16:00 60 08/20/16 16:00 98.3 67 24 99/54 95 96/54 08/20/16 16:00 67 08/20/16 15:16 92 60 08/20/16 14:00 65 08/21/16 07:00 Intake Total 3291 ml Output Total 1970.0 ml Balance 1321.0 ml (Henry Flanagan) Review of Systems/Exam ROS Unable to obtain a ROS due to patient being sedated & intubated. Exam General: Well developed, well nourished male who appears his stated age. Sedated , intubated & mechanically ventilated. HEENT: Normocephalic, atraumatic. PERRLA. Resp: CTAB w/o W/R/R, equal excursion, non-laboured, orally intubated & mechanically ventilated. CV: S1S2 w/RRR w/o M/G/R, radial & pedal pulses 2+ bilaterally, cap refill < 2 sec. Monitor is sinus rhythm w/o any ectopy noted. GI: Abdomen soft, nontender, positive bowel sounds, OGT w/enteral feeds. : Simon catheter to BSD w/clear yellow urine. Extremities: Moves only left side. Neuro: Intubated & sedated, GCS 5T (E1 V1T M3). No eye opening to verbal or noxious stimuli. Does not follow commands. Spontaneous nonpurposeful movement of LLE, trace movement of left hand, no evident movement of right side. Withdraws with noxious stimuli on left lower but not to left upper or right side. (Henry Flanagan) Medications Current Medications Current Medications Medications (Trade) Dose Ordered Sig/Beto Route Start Time Stop Time Status Last Admin (NS Flush) 2 ml UNSCH PRN IV FLUSH 08/15/16 07:15 08/20/16 08:34 (NS Flush) 2 ml UNSCH PRN IV FLUSH 08/15/16 07:15 08/20/16 08:33 (NS Flush) 5 ml Q21D IV FLUSH 08/15/16 07:15 08/20/16 08:34 (Heparin Central Flush) 500 units Q21D IV FLUSH 08/15/16 07:15 (NS Flush) 5 ml UNSCH PRN IV FLUSH 08/15/16 07:15 08/20/16 08:34 (Heparin Central Flush) 250 units UNSCH PRN IV FLUSH 08/15/16 07:15 (NS Flush) 2 ml BID IV FLUSH 08/15/16 21:00 08/21/16 09:00 (NS Flush) 2 ml UNSCH PRN IV FLUSH 08/15/16 12:15 08/20/16 08:33 (Xanax) 0.25 mg Q8H PRN PO 08/15/16 12:15 (Abilify) 15 mg HS PO 08/15/16 21:00 Hold 08/18/16 19:33 (Symbicort 160-4.5 Inh) 2 puff Q12HR INH 08/15/16 21:00 08/20/16 19:41 (Neurontin) 100 mg TID PO 08/15/16 13:00 08/21/16 09:00 ([place] 10-325 Mg) 1 tab Q4H PRN PO 08/15/16 12:15 (Spiriva Inh) 18 mcg DAILY INH 08/16/16 09:00 (Desyrel) 100 mg HS PO 08/15/16 21:00 Hold 08/18/16 19:33 (PROzac) 60 mg DAILY PO 08/16/16 09:00 Hold (Tylenol) 650 mg Q4H PRN PO 08/15/16 12:15 08/19/16 09:52 (Zofran Inj) 4 mg Q6H PRN IV 08/15/16 12:15 (Colace) 100 mg BID PRN PO 08/15/16 12:15 08/20/16 13:14 (Mag-Al Plus Susp Liq) 30 ml Q6H PRN PO 08/15/16 12:15 (Tums Chew) 1,000 mg TID PRN CHEW 08/15/16 12:15 Miscellaneous Information 1 Q361D XX 08/15/16 13:15 08/15/16 19:00 (Chlorhexidine 2% Cloth) Taper DAILY@04 TOP 08/16/16 04:00 08/12/17 03:59 08/20/16 02:00 (Chlorhexidine 2% Cloth) 3 pack UNSCH PRN TOP 08/15/16 13:15 (Heparin Inj) 5,000 units UNSCH PRN IV 08/15/16 19:15 Hold Heparin Sodium (Porcine) 2500 units 2,500 units UNSCH PRN IV 08/15/16 19:15 Hold Heparin Sodium/ Dextrose 250 ml @ 0 mls/hr TITRATE IV 08/15/16 13:15 Hold 08/15/16 15:22 (Levaquin 750 Mg Premix Inj) 150 ml @ 100 mls/hr Q24H IV 08/15/16 16:00 08/20/16 15:44 (Apresoline Inj) 10 mg Q2HR PRN IV PUSH 08/15/16 16:00 08/16/16 04:36 (Pepcid Inj) 20 mg Q12H IV PUSH 08/15/16 16:00 08/21/16 06:00 (D50w (Vial) Inj) 25 ml UNSCH PRN IV PUSH 08/15/16 17:30 (Glucagon Inj) 1 mg UNSCH PRN OTHER 08/15/16 17:30 (Dilantin Inj) 100 mg Q8HR IV 08/16/16 14:00 08/21/16 06:13 Chlorhexidine Gluconate 15 ml 15 ml BID@08,20 MT 08/16/16 20:00 08/21/16 08:00 Propofol 100 ml @ 0 mls/hr TITRATE IV 08/16/16 15:30 08/21/16 10:38 (Levophed-Dextrose Drip) 250 ml @ 0 mls/hr TITRATE IV 08/16/16 15:30 08/18/16 14:43 Terbutaline Sulfate 1 mg 1 mg UNSCH PRN SQ 08/16/16 15:15 Sodium Chloride 1,000 ml @ 20 mls/hr Q24H IV 08/16/16 15:30 08/21/16 06:01 (fentaNYL DRIP) 250 ml @ 0 mls/hr TITRATE IV 08/17/16 10:45 08/21/16 06:00 (NovoLOG SUPPLEMENTAL SCALE) 1 Q6HR SQ 08/17/16 12:00 08/19/16 05:10 (SoluMEDROL INJ) 60 mg Q8HR IVP 08/17/16 14:00 08/21/16 06:14 Aspirin 162 mg 162 mg DAILY CHEW 08/17/16 12:15 08/21/16 09:00 (Sodium Chloride 3% Inj) 500 ml @ 25 mls/hr Q20H IV 08/18/16 11:15 08/21/16 06:01 (Senna Liq) 8.8 mg DAILY OG-TUBE 08/18/16 11:30 08/21/16 09:00 (Heparin Inj) 5,000 units Q8HR SQ 08/19/16 22:00 08/21/16 06:14 (Lipitor) 20 mg DAILY PO 08/19/16 20:00 08/21/16 09:00 (Lasix Inj) 20 mg ONCE ONCE IV PUSH 08/21/16 18:00 08/21/16 18:01 (Henry Flanagan) Medical Decision Making MDM Remarks Left MCA stroke. Repeat CT scans of 08/19 & 08/20 demonstrate stability of stroke No indication for surgical intervention. Right hemiplegia, neurological stable. (Henry Flanagan) Plan Plan Remarks Continue medical treatment with 3% NaCl keeping sodium high for 7-10 days total. Frequent neuro checks. Stat CT brain for any neurological decline. (Henry Flanagan) Attending Statement I have personally seen and examined the patient on the date of this note. Pertinent documentation and study results have been reviewed by the undersigned. I have personally developed the treatment plan and performed medical decision making. Agree with findings, exam, and treatment plan as noted above. Neurologic exam stable. Persistent right hemiparesis No neurosurgical intervention anticipated at this point We will sign off. Reconsult if any further issues arise (Chavez Wisdom MD) Henry Flanagan August 21, 2016 12:47 Chavez Wisdom MD August 21, 2016 19:34
--- NOTE | 2016-08-21 14:06 | PD.CARD.PN ---
Subjective Subjective Remarks Intubated, restless, moving all extremities except RUE Objective Medications Current Medications Medications (Trade) Dose Ordered Sig/Beto Route Start Time Stop Time Status Last Admin (NS Flush) 2 ml UNSCH PRN IV FLUSH 08/15/16 07:15 08/20/16 08:34 (NS Flush) 2 ml UNSCH PRN IV FLUSH 08/15/16 07:15 08/20/16 08:33 (NS Flush) 5 ml Q21D IV FLUSH 08/15/16 07:15 08/20/16 08:34 (Heparin Central Flush) 500 units Q21D IV FLUSH 08/15/16 07:15 (NS Flush) 5 ml UNSCH PRN IV FLUSH 08/15/16 07:15 08/20/16 08:34 (Heparin Central Flush) 250 units UNSCH PRN IV FLUSH 08/15/16 07:15 (NS Flush) 2 ml BID IV FLUSH 08/15/16 21:00 08/21/16 09:00 (NS Flush) 2 ml UNSCH PRN IV FLUSH 08/15/16 12:15 08/20/16 08:33 (Xanax) 0.25 mg Q8H PRN PO 08/15/16 12:15 (Abilify) 15 mg HS PO 08/15/16 21:00 Hold 08/18/16 19:33 (Symbicort 160-4.5 Inh) 2 puff Q12HR INH 08/15/16 21:00 08/20/16 19:41 (Neurontin) 100 mg TID PO 08/15/16 13:00 08/21/16 13:53 ([place] 10-325 Mg) 1 tab Q4H PRN PO 08/15/16 12:15 (Spiriva Inh) 18 mcg DAILY INH 08/16/16 09:00 (Desyrel) 100 mg HS PO 08/15/16 21:00 Hold 08/18/16 19:33 (PROzac) 60 mg DAILY PO 08/16/16 09:00 Hold (Tylenol) 650 mg Q4H PRN PO 08/15/16 12:15 08/19/16 09:52 (Zofran Inj) 4 mg Q6H PRN IV 08/15/16 12:15 (Colace) 100 mg BID PRN PO 08/15/16 12:15 08/20/16 13:14 (Mag-Al Plus Susp Liq) 30 ml Q6H PRN PO 08/15/16 12:15 (Tums Chew) 1,000 mg TID PRN CHEW 08/15/16 12:15 Miscellaneous Information 1 Q361D XX 08/15/16 13:15 08/15/16 19:00 (Chlorhexidine 2% Cloth) Taper DAILY@04 TOP 08/16/16 04:00 08/12/17 03:59 08/20/16 02:00 (Chlorhexidine 2% Cloth) 3 pack UNSCH PRN TOP 08/15/16 13:15 (Heparin Inj) 5,000 units UNSCH PRN IV 08/15/16 19:15 Hold Heparin Sodium (Porcine) 2500 units 2,500 units UNSCH PRN IV 08/15/16 19:15 Hold Heparin Sodium/ Dextrose 250 ml @ 0 mls/hr TITRATE IV 08/15/16 13:15 Hold 08/15/16 15:22 (Levaquin 750 Mg Premix Inj) 150 ml @ 100 mls/hr Q24H IV 08/15/16 16:00 08/20/16 15:44 (Apresoline Inj) 10 mg Q2HR PRN IV PUSH 08/15/16 16:00 08/16/16 04:36 (Pepcid Inj) 20 mg Q12H IV PUSH 08/15/16 16:00 08/21/16 06:00 (D50w (Vial) Inj) 25 ml UNSCH PRN IV PUSH 08/15/16 17:30 (Glucagon Inj) 1 mg UNSCH PRN OTHER 08/15/16 17:30 (Dilantin Inj) 100 mg Q8HR IV 08/16/16 14:00 08/21/16 13:52 Chlorhexidine Gluconate 15 ml 15 ml BID@08,20 MT 08/16/16 20:00 08/21/16 08:00 Propofol 100 ml @ 0 mls/hr TITRATE IV 08/16/16 15:30 08/21/16 10:38 (Levophed-Dextrose Drip) 250 ml @ 0 mls/hr TITRATE IV 08/16/16 15:30 08/18/16 14:43 Terbutaline Sulfate 1 mg 1 mg UNSCH PRN SQ 08/16/16 15:15 Sodium Chloride 1,000 ml @ 20 mls/hr Q24H IV 08/16/16 15:30 08/21/16 06:01 (fentaNYL DRIP) 250 ml @ 0 mls/hr TITRATE IV 08/17/16 10:45 08/21/16 06:00 (NovoLOG SUPPLEMENTAL SCALE) 1 Q6HR SQ 08/17/16 12:00 08/19/16 05:10 (SoluMEDROL INJ) 60 mg Q8HR IVP 08/17/16 14:00 08/21/16 13:52 Aspirin 162 mg 162 mg DAILY CHEW 08/17/16 12:15 08/21/16 09:00 (Sodium Chloride 3% Inj) 500 ml @ 25 mls/hr Q20H IV 08/18/16 11:15 08/21/16 06:01 (Senna Liq) 8.8 mg DAILY OG-TUBE 08/18/16 11:30 08/21/16 09:00 (Heparin Inj) 5,000 units Q8HR SQ 08/19/16 22:00 08/21/16 13:52 (Lipitor) 20 mg DAILY PO 08/19/16 20:00 08/21/16 09:00 (Lasix Inj) 20 mg ONCE ONCE IV PUSH 08/21/16 18:00 08/21/16 18:01 Vital Signs / I&O Vital Signs Date Time Temp Pulse Resp B/P Pulse Ox O2 Delivery O2 Flow Rate FiO2 08/21/16 11:28 94 60 08/21/16 08:58 97 60 08/21/16 08:00 60 08/21/16 07:00 Mechanical Ventilator 60 08/21/16 06:00 62 113/74 119/58 08/21/16 06:00 76 08/21/16 04:10 97 60 08/21/16 04:00 60 08/21/16 04:00 99.2 72 28 118/74 98 121/65 08/21/16 04:00 72 08/21/16 02:00 76 08/21/16 00:22 97 60 08/21/16 00:00 65 08/21/16 00:00 97.7 65 28 102/69 95 104/58 08/21/16 00:00 60 08/20/16 22:34 95 60 08/20/16 22:00 66 08/20/16 20:55 60 08/20/16 20:00 60 08/20/16 20:00 98.6 68 28 115/66 99 102/55 08/20/16 20:00 68 08/20/16 19:37 98 60 08/20/16 19:00 97 Mechanical Ventilator 60 08/20/16 18:00 62 08/20/16 18:00 62 111/72 116/62 08/20/16 17:10 94 60 08/20/16 16:05 99 100 08/20/16 16:00 60 08/20/16 16:00 98.3 67 24 99/54 95 96/54 08/20/16 16:00 67 08/20/16 15:16 92 60 I/O 08/20/16 08/20/16 08/20/16 08/21/16 08/21/16 08/21/16 07:00 15:00 23:00 07:00 15:00 23:00 Intake Total 1064 ml 949 ml 1414 ml 928 ml Output Total 462 ml 500 ml 770 ml 700 ml 0 ml Balance 602 ml 449 ml 644 ml 228 ml 0 ml Intake Oral 0 ml IV Total 526 ml 435 ml 915 ml 475 ml Tube Feeding 438 ml 394 ml 499 ml 453 ml Other 100 ml 120 ml Output Urine Total 450 ml 325 ml 500 ml 500 ml Tube Feeding Residual Discard 0 ml 0 ml 0 ml Chest Tube Drainage Total 12 ml 175 ml 270 ml 200 ml # Bowel Movements 0 0 Physical Exam GENERAL: Intubated, restless SKIN: Warm and dry. HEAD: Normocephalic. EYES: No scleral icterus. No injection or drainage. NECK: Supple, trachea midline. No JVD or lymphadenopathy. CARDIOVASCULAR: Regular rate and rhythm without murmurs, gallops, or rubs. RESPIRATORY: Breath sounds equal bilaterally. No accessory muscle use. GASTROINTESTINAL: Abdomen soft, non-tender, nondistended. MUSCULOSKELETAL: No cyanosis, or edema. Laboratory Laboratory Tests Test 08/20/16 08/20/16 08/21/16 08/21/16 18:15 21:40 00:10 05:00 Sodium Level 150 MEQ/L 149 MEQ/L Serum Osmolality 316 MOSM/KG 315 MOSM/KG Blood Gas Puncture Site ART LINE ART LINE Blood Gas Patient Temperature 98.6 98.6 Blood Gas HCO3 30 mmol/L 30 mmol/L Blood Gas Base Excess 5.3 mmol/L 5.2 mmol/L Blood Gas Oxygen Saturation 94 % 92 % Arterial Blood pH 7.41 7.42 Arterial Blood Partial 47 mmHg 46 mmHg Pressure CO2 Arterial Blood Partial 84 mmHg 71 mmHg Pressure O2 Arterial Blood Oxygen Content 12.5 Vol % 12.6 Vol % Arterial Blood 1.5 % 1.5 % Carboxyhemoglobin Arterial Blood Methemoglobin 1.1 % 1.2 % Blood Gas Hemoglobin 9.4 G/DL 9.7 G/DL Oxygen Delivery Device VENTILATOR VENTILATOR Blood Gas Ventilator Setting AC//550/PEEP AC//600/PEEP 5 5 Blood Gas Inspired Oxygen 60 % 60 % Test 08/21/16 08/21/16 05:20 12:00 White Blood Count 8.5 TH/MM3 Red Blood Count 3.16 MIL/MM3 Hemoglobin 9.8 GM/DL Hematocrit 28.9 % Mean Corpuscular Volume 91.7 FL Mean Corpuscular Hemoglobin 31.2 PG Mean Corpuscular Hemoglobin 34.0 % Concent Red Cell Distribution Width 14.1 % Platelet Count 108 TH/MM3 Mean Platelet Volume 8.9 FL Sodium Level 149 MEQ/L 148 MEQ/L Serum Osmolality 316 MOSM/KG B-Type Natriuretic Peptide 1437 PG/ML Imaging Last Impressions Chest X-Ray 08/21/16 0000 Signed Impressions: Service Date/Time: Sunday, August 21, 2016 05:23 - CONCLUSION: 1. There is no evidence of pneumothorax. Israel Okeefe MD Head CT 08/20/16 1500 Signed Impressions: Service Date/Time: Saturday, August 20, 2016 16:25 - CONCLUSION: 1. No change in large nonhemorrhagic left MCA territory infarction with some mass effect as detailed above. Murphy Persaud Jr., MD Head CTA 08/16/16 0207 Signed Impressions: Service Date/Time: Tuesday, August 16, 2016 04:10 - CONCLUSION: Thrombosed left middle cerebral artery with associated large subacute cerebral infarct. Neftaly Holden MD Neck CTA 08/16/16 0000 Signed Impressions: Service Date/Time: Tuesday, August 16, 2016 04:10 - CONCLUSION: 1. Extracranial carotids are normal. Also normal vertebral arteries. 2. Known malignant right upper lobe mass. Mediastinal and hilar lymphadenopathy seen in the upper chest. Neftaly Holden MD IVC Filter Placement X-Ray 08/16/16 Signed Impressions: Service Date/Time: Tuesday, August 16, 2016 10:30 - CONCLUSION: Uncomplicated inferior vena cava filter placement as above. Israel Okeefe MD Head Magnetic Resonance Angiography 08/16/16 Signed Impressions: Service Date/Time: Tuesday, August 16, 2016 10:27 - CONCLUSION: Markedly abnormal cerebral perfusion corresponding to the large MCA occlusion on the left. Harshad Campbell MD FACR Brain MRI 08/16/16 Signed Impressions: Service Date/Time: Tuesday, August 16, 2016 10:27 - CONCLUSION: Large area of infarction involving the left Sylvian region. There is occlusion of the distal left MCA. There is some collateralization distally. Harshad Campbell MD FACR Lung Biopsy CT 08/15/16 Signed Impressions: Service Date/Time: July 08:22 - CONCLUSION: Uncomplicated CT guided biopsy of the right upper lobe lung mass. Neftaly Rodriguez MD CT Angiography 08/15/16 Signed Impressions: Service Date/Time: July 13:22 - CONCLUSION: 1. There is acute appearing PE in the right lower lobe segmental and left lower lobe subsegmental pulmonary arteries. These PE are new since the prior CT from 07/09/2016. 2. Small right pneumothorax. 3. Right upper lobe pulmonary mass remains present and measures 4.9 cm. There is associated mediastinal, right hilar, and right supraclavicular lymphadenopathy suspicious for lymphatic spread of disease. Neftaly Rodriguez MD Assessment and Plan Problem List: (1) Non-STEMI (non-ST elevated myocardial infarction) (2) Stroke (3) Pneumothorax (4) Pulmonary embolism (5) Cardiomyopathy (6) Lung mass Assessment and Plan Continue ICU care. Pressors weaned off, VS stable. Neuro and NS eval. Continue ASA, rec high dose statin. Full anticoagulation contraindicated at this time due to a large stroke. Wean vent as tolerated. No new cardiac issues, stable p MT course. Varghese May MD August 21, 2016 14:06
[2016-08-21] MEDS: LEVOFLOXACIN 750 MG PREMIX INJ 150 ML IV SCH (16:39)
--- NOTE | 2016-08-21 18:11 | HHI.PR ---
Review/Management Diagnosis left MCA stroke--prognosis guarded. Plan CT brain tomorrow to follow up on edema Diagnosis/Plan: Subjective Subjective Comments No acute events reported Active Medications Current Medications Medications (Trade) Dose Ordered Sig/Beto Route Start Time Stop Time Status Last Admin (NS Flush) 2 ml UNSCH PRN IV FLUSH 08/15/16 07:15 08/20/16 08:34 (NS Flush) 2 ml UNSCH PRN IV FLUSH 08/15/16 07:15 08/20/16 08:33 (NS Flush) 5 ml Q21D IV FLUSH 08/15/16 07:15 08/20/16 08:34 (Heparin Central Flush) 500 units Q21D IV FLUSH 08/15/16 07:15 (NS Flush) 5 ml UNSCH PRN IV FLUSH 08/15/16 07:15 08/20/16 08:34 (Heparin Central Flush) 250 units UNSCH PRN IV FLUSH 08/15/16 07:15 (NS Flush) 2 ml BID IV FLUSH 08/15/16 21:00 08/21/16 09:00 (NS Flush) 2 ml UNSCH PRN IV FLUSH 08/15/16 12:15 08/20/16 08:33 (Xanax) 0.25 mg Q8H PRN PO 08/15/16 12:15 (Abilify) 15 mg HS PO 08/15/16 21:00 Hold 08/18/16 19:33 (Symbicort 160-4.5 Inh) 2 puff Q12HR INH 08/15/16 21:00 08/20/16 19:41 (Neurontin) 100 mg TID PO 08/15/16 13:00 08/21/16 17:48 ([place] 10-325 Mg) 1 tab Q4H PRN PO 08/15/16 12:15 (Spiriva Inh) 18 mcg DAILY INH 08/16/16 09:00 (Desyrel) 100 mg HS PO 08/15/16 21:00 Hold 08/18/16 19:33 (PROzac) 60 mg DAILY PO 08/16/16 09:00 Hold (Tylenol) 650 mg Q4H PRN PO 08/15/16 12:15 08/19/16 09:52 (Zofran Inj) 4 mg Q6H PRN IV 08/15/16 12:15 (Colace) 100 mg BID PRN PO 08/15/16 12:15 08/20/16 13:14 (Mag-Al Plus Susp Liq) 30 ml Q6H PRN PO 08/15/16 12:15 (Tums Chew) 1,000 mg TID PRN CHEW 08/15/16 12:15 Miscellaneous Information 1 Q361D XX 08/15/16 13:15 08/15/16 19:00 (Chlorhexidine 2% Cloth) Taper DAILY@04 TOP 08/16/16 04:00 08/12/17 03:59 08/20/16 02:00 (Chlorhexidine 2% Cloth) 3 pack UNSCH PRN TOP 08/15/16 13:15 (Heparin Inj) 5,000 units UNSCH PRN IV 08/15/16 19:15 Hold Heparin Sodium (Porcine) 2500 units 2,500 units UNSCH PRN IV 08/15/16 19:15 Hold Heparin Sodium/ Dextrose 250 ml @ 0 mls/hr TITRATE IV 08/15/16 13:15 Hold 08/15/16 15:22 (Levaquin 750 Mg Premix Inj) 150 ml @ 100 mls/hr Q24H IV 08/15/16 16:00 08/21/16 16:39 (Apresoline Inj) 10 mg Q2HR PRN IV PUSH 08/15/16 16:00 08/16/16 04:36 (Pepcid Inj) 20 mg Q12H IV PUSH 08/15/16 16:00 08/21/16 16:39 (D50w (Vial) Inj) 25 ml UNSCH PRN IV PUSH 08/15/16 17:30 (Glucagon Inj) 1 mg UNSCH PRN OTHER 08/15/16 17:30 (Dilantin Inj) 100 mg Q8HR IV 08/16/16 14:00 08/21/16 13:52 Chlorhexidine Gluconate 15 ml 15 ml BID@08,20 MT 08/16/16 20:00 08/21/16 08:00 Propofol 100 ml @ 0 mls/hr TITRATE IV 08/16/16 15:30 08/21/16 10:38 (Levophed-Dextrose Drip) 250 ml @ 0 mls/hr TITRATE IV 08/16/16 15:30 08/18/16 14:43 Terbutaline Sulfate 1 mg 1 mg UNSCH PRN SQ 08/16/16 15:15 Sodium Chloride 1,000 ml @ 20 mls/hr Q24H IV 08/16/16 15:30 08/21/16 06:01 (fentaNYL DRIP) 250 ml @ 0 mls/hr TITRATE IV 08/17/16 10:45 08/21/16 06:00 (NovoLOG SUPPLEMENTAL SCALE) 1 Q6HR SQ 08/17/16 12:00 08/19/16 05:10 (SoluMEDROL INJ) 60 mg Q8HR IVP 08/17/16 14:00 08/21/16 13:52 Aspirin 162 mg 162 mg DAILY CHEW 08/17/16 12:15 08/21/16 09:00 (Sodium Chloride 3% Inj) 500 ml @ 25 mls/hr Q20H IV 08/18/16 11:15 08/21/16 06:01 (Senna Liq) 8.8 mg DAILY OG-TUBE 08/18/16 11:30 08/21/16 09:00 (Heparin Inj) 5,000 units Q8HR SQ 08/19/16 22:00 08/21/16 13:52 (Lipitor) 20 mg DAILY PO 08/19/16 20:00 08/21/16 09:00 Allergies Allergies Coded Allergies No Known Allergies (Unverified07/09/16) Exam I&O / VS 08/20/16 08/20/16 08/21/16 15:00 23:00 07:00 Intake Total 949 ml 1414 ml 928 ml Output Total 500 ml 770 ml 700 ml Balance 449 ml 644 ml 228 ml IV Total 435 ml 915 ml 475 ml Tube Feeding 394 ml 499 ml 453 ml Other 120 ml Output Urine Total 325 ml 500 ml 500 ml Tube Feeding Residual Discard 0 ml 0 ml Chest Tube Drainage Total 175 ml 270 ml 200 ml # Bowel Movements 0 Vital Signs Date Time Temp Pulse Resp B/P Pulse Ox O2 Delivery O2 Flow Rate FiO2 08/21/16 16:48 95 60 08/21/16 14:30 67 28 104/60 91 08/21/16 14:00 75 28 116/66 92 08/21/16 13:30 63 28 111/67 95 08/21/16 13:00 65 28 111/65 95 08/21/16 12:30 66 28 110/64 94 08/21/16 12:00 60 08/21/16 12:00 64 108/68 111/65 08/21/16 12:00 98.6 64 28 108/68 95 111/65 08/21/16 11:30 62 28 110/63 94 08/21/16 11:28 94 60 08/21/16 11:00 64 28 115/67 94 08/21/16 10:30 75 28 126/73 95 08/21/16 10:00 68 28 128/78 96 08/21/16 09:30 66 28 113/76 95 08/21/16 09:21 73 28 140/88 96 116/102 08/21/16 09:00 74 28 125/88 97 08/21/16 08:58 97 60 08/21/16 08:30 68 28 129/72 95 08/21/16 08:01 81 28 140/101 96 148/80 08/21/16 08:00 85 145/77 08/21/16 08:00 60 08/21/16 08:00 99.4 85 28 145/77 94 08/21/16 07:00 Mechanical Ventilator 60 08/21/16 06:00 62 113/74 119/58 08/21/16 06:00 76 08/21/16 04:10 97 60 08/21/16 04:00 60 08/21/16 04:00 99.2 72 28 118/74 98 121/65 08/21/16 04:00 72 08/21/16 02:00 76 08/21/16 00:22 97 60 08/21/16 00:00 65 08/21/16 00:00 97.7 65 28 102/69 95 104/58 08/21/16 00:00 60 08/20/16 22:34 95 60 08/20/16 22:00 66 08/20/16 20:55 60 08/20/16 20:00 60 08/20/16 20:00 98.6 68 28 115/66 99 102/55 08/20/16 20:00 68 08/20/16 19:37 98 60 08/20/16 19:00 97 Mechanical Ventilator 60 Exam Comments sedated pupils 2 mm symmetric right hemiplegia. No tonic clonic activity or tremor Objective Micro and Labs Laboratory Tests Test 08/20/16 08/20/16 08/21/16 08/21/16 18:15 21:40 00:10 05:00 Sodium Level 150 149 Serum Osmolality 316 315 Blood Gas Puncture Site ART LINE ART LINE Blood Gas Patient Temperature 98.6 98.6 Blood Gas HCO3 30 30 Blood Gas Base Excess 5.3 5.2 Blood Gas Oxygen Saturation 94 92 Arterial Blood pH 7.41 7.42 Arterial Blood Partial 47 46 Pressure CO2 Arterial Blood Partial 84 71 Pressure O2 Arterial Blood Oxygen Content 12.5 12.6 Arterial Blood 1.5 1.5 Carboxyhemoglobin Arterial Blood Methemoglobin 1.1 1.2 Blood Gas Hemoglobin 9.4 9.7 Oxygen Delivery Device VENTILATOR VENTILATOR Blood Gas Ventilator Setting AC//550/PEEP AC//600/PEEP 5 5 Blood Gas Inspired Oxygen 60 60 Test 08/21/16 08/21/16 05:20 12:00 White Blood Count 8.5 Red Blood Count 3.16 Hemoglobin 9.8 Hematocrit 28.9 Mean Corpuscular Volume 91.7 Mean Corpuscular Hemoglobin 31.2 Mean Corpuscular Hemoglobin 34.0 Concent Red Cell Distribution Width 14.1 Platelet Count 108 Mean Platelet Volume 8.9 Sodium Level 149 148 Serum Osmolality 316 B-Type Natriuretic Peptide 1437 Date/Time Procedure Status Source Growth 08/19/16 12:20 Aerobic Blood Culture - Preliminary Resulted Blood Other NO GROWTH IN 2 DAYS 08/19/16 12:20 Anaerobic Blood Culture - Preliminary Resulted Blood Other NO GROWTH IN 2 DAYS 08/19/16 10:30 Gram Stain - Final Complete Sputum Endotracheal 08/19/16 10:30 Sputum Culture - Final Complete Sputum Endotracheal HEAVY GROWTH NORMAL RESPIRATORY [place] 08/19/16 10:05 Urine Culture - Final Complete Urine Catheterized Urine NO GROWTH IN 48 HOURS. Fabrizio Jean PhD August 21, 2016 18:11
[2016-08-21 20:22] LABS: ALKALINE PHOSPHATASE 49 U/L (45-117); ALT (GPT) 28 U/L (12-78); ANION GAP 4 MEQ/L (5-15); AST (GOT) 26 U/L (15-37); BICARBONATE 35.7 MEQ/L (21.0-32.0); BLOOD UREA NITROGEN 29 MG/DL (7-18); CHLORIDE 106 MEQ/L (98-107); GLOMERULAR FILTRATION RATE 84 ML/MIN (>89); POTASSIUM 4.3 MEQ/L (3.5-5.1); SODIUM (NA) 146 MEQ/L (136-145); TOTAL BILIRUBIN ADULT 0.2 MG/DL (0.2-1.0)
--- NOTE | 2016-08-21 22:07 | HHI.HCPN ---
Reason for visit a. To assist with evaluation and management of symptoms including: Dyspnea, pain b. To assist medical decision maker(s) with: better understanding of current medical conditions; weighing benefits/burdens of medical treatment options; making medical treatment decisions. Subjective/Interval History LATE ENTRY: Patient seen and examined in ICU around 3pm. No family at bedside. 08/20/16 - repeat CT head with no change in large nonhemorrhagic left MCA infarction with some mass effect, no midline shift. Remains on mech vent, FiO2 60%, PEEP 5. Sedated on Diprivan, Fentanyl. Afebrile. Vital signs stable. WBC 8.5, hemoglobin 9.8, platelets 108. Sodium 146. Albumin 2.2. Tolerating tube feeding. Chest tube in place in right. Chest xray with no evidence of pneumothorax. Oncology, Dr. Murry spoke with family regarding poor prognosis, family hopeful he will wake up and go home. Note indicates fmaily understands patient is not a candidate for chemo/radiation and that cancer will continue to progress. Neurosurgery, Dr. Wisdom has signed off as no indication for surgical intervention anticipated. Cardiology, Dr. May recommends continuation of ASA and statin, full anticoagulation is contraindicated due to large stroke, stable after SD. Neurology, Dr. Jean indicates prognosis guarded. Will speak with global professional on 08/22/16 for further prognostication, overall poor prognosis appears poor for meaningful recovery. . Family/friend interactions No family at bedside. I will attempt to introduce myself to family when at bedside, as HENRY Jo is no longer working with palliative care. . Advance Directives Living Will: Never completed Health Care Surrogate: Never completed Durable Power of Screw Machine Adjuster Automatic: Never completed Advance Directive Specifics Health Care Surrogate(s): Spouse, Erika Cooley, Significant change in goals: FULL CODE. Goals remain aggressive in review of notes, I will attempt to meet family for further clarification of treatment goals as needed. . Objective Vital Signs Date Time Temp Pulse Resp B/P Pulse Ox O2 Delivery O2 Flow Rate FiO2 08/21/16 20:15 94 60 08/21/16 18:00 77 128/74 08/21/16 18:00 77 28 128/74 95 08/21/16 17:30 68 28 118/67 98 08/21/16 17:00 68 28 121/70 97 08/21/16 16:48 95 60 08/21/16 16:30 62 28 109/62 93 08/21/16 16:00 60 08/21/16 16:00 98.9 63 28 98/67 91 110/62 08/21/16 15:30 65 28 111/64 94 08/21/16 15:00 66 28 104/60 91 08/21/16 14:30 67 28 104/60 91 08/21/16 14:00 75 28 116/66 92 08/21/16 13:30 63 28 111/67 95 08/21/16 13:00 65 28 111/65 95 08/21/16 12:30 66 28 110/64 94 08/21/16 12:00 60 08/21/16 12:00 64 108/68 111/65 08/21/16 12:00 98.6 64 28 108/68 95 111/65 08/21/16 11:30 62 28 110/63 94 08/21/16 11:28 94 60 08/21/16 11:00 64 28 115/67 94 08/21/16 10:30 75 28 126/73 95 08/21/16 10:00 68 28 128/78 96 08/21/16 09:30 66 28 113/76 95 08/21/16 09:21 73 28 140/88 96 116/102 08/21/16 09:00 74 28 125/88 97 08/21/16 08:58 97 60 08/21/16 08:30 68 28 129/72 95 08/21/16 08:01 81 28 140/101 96 148/80 08/21/16 08:00 85 145/77 08/21/16 08:00 60 08/21/16 08:00 99.4 85 28 145/77 94 08/21/16 07:00 Mechanical Ventilator 60 08/21/16 06:00 62 113/74 119/58 08/21/16 06:00 76 08/21/16 04:10 97 60 08/21/16 04:00 60 08/21/16 04:00 99.2 72 28 118/74 98 121/65 08/21/16 04:00 72 08/21/16 02:00 76 08/21/16 00:22 97 60 08/21/16 00:00 65 08/21/16 00:00 97.7 65 28 102/69 95 104/58 08/21/16 00:00 60 08/20/16 22:34 95 60 08/20/16 22:00 66 Intake & Output 08/21/16 08/21/16 07:00 19:00 Intake Total 2342 ml 1010 ml Output Total 1470 ml 1800 ml Balance 872 ml -790 ml IV Total 1390 ml 480 ml Tube Feeding 952 ml 530 ml Output Urine Total 1000 ml 1700 ml Tube Feeding Residual Discard 0 ml 0 ml Chest Tube Drainage Total 470 ml 100 ml # Bowel Movements 0 Physical Exam CONSTITUTIONAL/GENERAL: This is middle aged, critically ill male, sedated on the ventilator TUBES/LINES/DRAINS: ETT, OG, Simon catheter, right chest tube,right chest port , Simon. SKIN: No jaundice, rashes, or lesions. Ecchymoses on upper extremities. No wounds seen anteriorly. Skin temperature appropriate. Not diaphoretic. EYES: eyes closed. CARDIOVASCULAR: Regular rate and rhythm without murmurs, gallops, or rubs. RESPIRATORY/CHEST: Right chest tube, Symmetric, unlabored respirations on vent. wheezing, otherwise clear. GASTROINTESTINAL: Abdomen soft, nondistended. Bowel sounds hypoactive. GENITOURINARY: Without palpable bladder distension. Simon catheter in place. MUSCULOSKELETAL: Extremities with trace edema. No mottling or clubbing. Right hemiplegia. NEUROLOGICAL: Sedated on mech vent. Opens eyes when sedation lightened. PSYCHIATRIC: Sedated. . Diagnostic Tests Laboratory Laboratory Tests Test 08/19/16 08/19/16 08/19/16 08/19/16 00:15 04:55 10:05 12:15 Sodium Level 148 MEQ/L 149 MEQ/L 149 MEQ/L (136-145) (136-145) (136-145) Serum Osmolality 318 MOSM/KG 323 MOSM/KG 318 MOSM/KG (275-295) (275-295) (275-295) White Blood Count 9.8 TH/MM3 (4.0-11.0) Red Blood Count 3.35 MIL/MM3 (4.50-5.90) Hemoglobin 10.4 GM/DL (13.0-17.0) Hematocrit 31.3 % (39.0-51.0) Mean Corpuscular Volume 93.4 FL (80.0-100.0) Mean Corpuscular Hemoglobin 30.9 PG (27.0-34.0) Mean Corpuscular Hemoglobin 33.1 % Concent (32.0-36.0) Red Cell Distribution Width 14.5 % (11.6-17.2) Platelet Count 116 TH/MM3 (150-450) Mean Platelet Volume 8.6 FL (7.0-11.0) Neutrophils (%) (Auto) 84.4 % (16.0-70.0) Lymphocytes (%) (Auto) 7.7 % (9.0-44.0) Monocytes (%) (Auto) 7.6 % (0.0-8.0) Eosinophils (%) (Auto) 0.0 % (0.0-4.0) Basophils (%) (Auto) 0.3 % (0.0-2.0) Neutrophils # (Auto) 8.3 TH/MM3 (1.8-7.7) Lymphocytes # (Auto) 0.8 TH/MM3 (1.0-4.8) Monocytes # (Auto) 0.7 TH/MM3 (0-0.9) Eosinophils # (Auto) 0.0 TH/MM3 (0-0.4) Basophils # (Auto) 0.0 TH/MM3 (0-0.2) CBC Comment AUTO DIFF Differential Comment AUTO DIFF CONFIRMED Platelet Estimate LOW (NORMAL) Platelet Morphology Comment NORMAL (NORMAL) Potassium Level 4.6 MEQ/L (3.5-5.1) Chloride Level 112 MEQ/L (98-107) Carbon Dioxide Level 30.3 MEQ/L (21.0-32.0) Anion Gap 7 MEQ/L (5-15) Blood Urea Nitrogen 32 MG/DL (7-18) Creatinine 1.12 MG/DL (0.60-1.30) Estimat Glomerular Filtration 69 ML/MIN (>89) Rate Random Glucose 143 MG/DL (74-106) Calcium Level 7.9 MG/DL (8.5-10.1) Phosphorus Level 3.1 MG/DL (2.5-4.9) Magnesium Level 2.7 MG/DL (1.5-2.5) Total Bilirubin 0.2 MG/DL (0.2-1.0) Aspartate Amino Transf 22 U/L (15-37) (AST/SGOT) Alanine Aminotransferase 34 U/L (12-78) (ALT/SGPT) Alkaline Phosphatase 42 U/L (45-117) Total Protein 5.5 GM/DL (6.4-8.2) Albumin 2.5 GM/DL (3.4-5.0) Urine Color YELLOW (YELLW/STRAW) Urine Turbidity CLEAR (CLEAR) Urine pH 5.5 (5.0-8.5) Urine Specific [place] 1.030 (1.002-1.035) Urine Protein TRACE mg/dL (NEG-TRACE) Urine Glucose (UA) NEG mg/dL (NEG) Urine Ketones NEG mg/dL (NEG) Urine Occult Blood SMALL (NEG) Urine Nitrite NEG (NEG) Urine Bilirubin NEG (NEG) Urine Urobilinogen LESS THAN 2.0 MG/DL (LESS THAN 2.0) Urine Leukocyte Esterase NEG (NEG) Urine RBC 13 /hpf (0-3) Urine WBC 2 /hpf (0-5) Urine Squamous Epithelial <1 /hpf (0-5) Cells Urine Bacteria OCC /hpf (NONE) Urine Mucus FEW /lpf (OCC) Microscopic Urinalysis Comment CATH-CULTURE IND Test 08/19/16 08/19/16 08/19/16 08/20/16 15:15 18:10 23:00 03:50 Blood Gas Puncture Site ART LINE Blood Gas Patient Temperature 98.6 Blood Gas HCO3 28 mmol/L (22-26) Blood Gas Base Excess 3.7 mmol/L (-2-2) Blood Gas Oxygen Saturation 91 % (90-100) Arterial Blood pH 7.41 (7.380-7.420) Arterial Blood Partial 46 mmHg (38-42) Pressure CO2 Arterial Blood Partial 71 mmHg Pressure O2 (61-120) Arterial Blood Oxygen Content 12.7 Vol % (12.0-20.0) Arterial Blood 1.6 % (0-4) Carboxyhemoglobin Arterial Blood Methemoglobin 1.0 % (0-2) Blood Gas Hemoglobin 9.8 G/DL (12.0-16.0) Oxygen Delivery Device VENTILATOR Blood Gas Ventilator Setting 550/28/PEEP5 Blood Gas Inspired Oxygen 40 % Sodium Level 147 MEQ/L 148 MEQ/L 149 MEQ/L (136-145) (136-145) (136-145) Serum Osmolality 316 MOSM/KG 319 MOSM/KG 322 MOSM/KG (275-295) (275-295) (275-295) White Blood Count 9.2 TH/MM3 (4.0-11.0) Red Blood Count 3.23 MIL/MM3 (4.50-5.90) Hemoglobin 10.1 GM/DL (13.0-17.0) Hematocrit 30.0 % (39.0-51.0) Mean Corpuscular Volume 92.9 FL (80.0-100.0) Mean Corpuscular Hemoglobin 31.3 PG (27.0-34.0) Mean Corpuscular Hemoglobin 33.7 % Concent (32.0-36.0) Red Cell Distribution Width 14.3 % (11.6-17.2) Platelet Count 111 TH/MM3 (150-450) Mean Platelet Volume 8.7 FL (7.0-11.0) Neutrophils (%) (Auto) 84.1 % (16.0-70.0) Lymphocytes (%) (Auto) 8.8 % (9.0-44.0) Monocytes (%) (Auto) 6.9 % (0.0-8.0) Eosinophils (%) (Auto) 0.1 % (0.0-4.0) Basophils (%) (Auto) 0.1 % (0.0-2.0) Neutrophils # (Auto) 7.7 TH/MM3 (1.8-7.7) Lymphocytes # (Auto) 0.8 TH/MM3 (1.0-4.8) Monocytes # (Auto) 0.6 TH/MM3 (0-0.9) Eosinophils # (Auto) 0.0 TH/MM3 (0-0.4) Basophils # (Auto) 0.0 TH/MM3 (0-0.2) CBC Comment DIFF FINAL Differential Comment Potassium Level 4.6 MEQ/L (3.5-5.1) Chloride Level 115 MEQ/L (98-107) Carbon Dioxide Level 31.2 MEQ/L (21.0-32.0) Anion Gap 3 MEQ/L (5-15) Blood Urea Nitrogen 32 MG/DL (7-18) Creatinine 0.85 MG/DL (0.60-1.30) Estimat Glomerular Filtration 95 ML/MIN (>89) Rate Random Glucose 128 MG/DL (74-106) Calcium Level 7.7 MG/DL (8.5-10.1) Phosphorus Level 3.4 MG/DL (2.5-4.9) Magnesium Level 2.7 MG/DL (1.5-2.5) Total Bilirubin 0.1 MG/DL (0.2-1.0) Aspartate Amino Transf 17 U/L (15-37) (AST/SGOT) Alanine Aminotransferase 29 U/L (12-78) (ALT/SGPT) Alkaline Phosphatase 40 U/L (45-117) Total Protein 5.2 GM/DL (6.4-8.2) Albumin 2.3 GM/DL (3.4-5.0) Test 08/20/16 08/20/16 08/20/16 08/20/16 08:35 12:45 18:15 21:40 Blood Gas Puncture Site ART LINE ART LINE Blood Gas Patient Temperature 98.6 98.6 Blood Gas HCO3 30 mmol/L 30 mmol/L (22-26) (22-26) Blood Gas Base Excess 5.2 mmol/L 5.3 mmol/L (-2-2) (-2-2) Blood Gas Oxygen Saturation 92 % (90-100) 94 % (90-100) Arterial Blood pH 7.36 7.41 (7.380-7.420) (7.380-7.420) Arterial Blood Partial 55 mmHg (38-42) 47 mmHg (38-42) Pressure CO2 Arterial Blood Partial 79 mmHg 84 mmHg Pressure O2 (61-120) (61-120) Arterial Blood Oxygen Content 13.3 Vol % 12.5 Vol % (12.0-20.0) (12.0-20.0) Arterial Blood 1.4 % (0-4) 1.5 % (0-4) Carboxyhemoglobin Arterial Blood Methemoglobin 1.2 % (0-2) 1.1 % (0-2) Blood Gas Hemoglobin 10.3 G/DL 9.4 G/DL (12.0-16.0) (12.0-16.0) Oxygen Delivery Device VENTILATOR VENTILATOR Blood Gas Ventilator Setting A/C AC/28/550/PEEP 24/550/5PEEP 5 Blood Gas Inspired Oxygen 50 % 60 % Sodium Level 149 MEQ/L 150 MEQ/L (136-145) (136-145) Serum Osmolality 317 MOSM/KG 316 MOSM/KG (275-295) (275-295) Protein S Activity 181 % (65 - 160) Test 08/21/16 08/21/16 08/21/16 08/21/16 00:10 05:00 05:20 12:00 Sodium Level 149 MEQ/L 149 MEQ/L 148 MEQ/L (136-145) (136-145) (136-145) Serum Osmolality 315 MOSM/KG 316 MOSM/KG (275-295) (275-295) Blood Gas Puncture Site ART LINE Blood Gas Patient Temperature 98.6 Blood Gas HCO3 30 mmol/L (22-26) Blood Gas Base Excess 5.2 mmol/L (-2-2) Blood Gas Oxygen Saturation 92 % (90-100) Arterial Blood pH 7.42 (7.380-7.420) Arterial Blood Partial 46 mmHg (38-42) Pressure CO2 Arterial Blood Partial 71 mmHg Pressure O2 (61-120) Arterial Blood Oxygen Content 12.6 Vol % (12.0-20.0) Arterial Blood 1.5 % (0-4) Carboxyhemoglobin Arterial Blood Methemoglobin 1.2 % (0-2) Blood Gas Hemoglobin 9.7 G/DL (12.0-16.0) Oxygen Delivery Device VENTILATOR Blood Gas Ventilator Setting AC/28/600/PEEP 5 Blood Gas Inspired Oxygen 60 % White Blood Count 8.5 TH/MM3 (4.0-11.0) Red Blood Count 3.16 MIL/MM3 (4.50-5.90) Hemoglobin 9.8 GM/DL (13.0-17.0) Hematocrit 28.9 % (39.0-51.0) Mean Corpuscular Volume 91.7 FL (80.0-100.0) Mean Corpuscular Hemoglobin 31.2 PG (27.0-34.0) Mean Corpuscular Hemoglobin 34.0 % Concent (32.0-36.0) Red Cell Distribution Width 14.1 % (11.6-17.2) Platelet Count 108 TH/MM3 (150-450) Mean Platelet Volume 8.9 FL (7.0-11.0) B-Type Natriuretic Peptide 1437 PG/ML (0-100) Test 08/21/16 18:56 Sodium Level 146 MEQ/L (136-145) Potassium Level 4.3 MEQ/L (3.5-5.1) Chloride Level 106 MEQ/L (98-107) Carbon Dioxide Level 35.7 MEQ/L (21.0-32.0) Anion Gap 4 MEQ/L (5-15) Blood Urea Nitrogen 29 MG/DL (7-18) Creatinine 0.95 MG/DL (0.60-1.30) Estimat Glomerular Filtration 84 ML/MIN (>89) Rate Random Glucose 137 MG/DL (74-106) Calcium Level 7.7 MG/DL (8.5-10.1) Total Bilirubin 0.2 MG/DL (0.2-1.0) Aspartate Amino Transf 26 U/L (15-37) (AST/SGOT) Alanine Aminotransferase 28 U/L (12-78) (ALT/SGPT) Alkaline Phosphatase 49 U/L (45-117) Total Protein 5.5 GM/DL (6.4-8.2) Albumin 2.2 GM/DL (3.4-5.0) Phenytoin (Dilantin) Level 5.1 MCG/ML (10.0-20.0) Result Diagram: 08/21/16 0520 08/21/16 1856 Microbiology Microbiology Date/Time Procedure Status Source Growth 08/19/16 10:05 Urine Culture - Final Complete Urine Catheterized Urine NO GROWTH IN 48 HOURS. 08/19/16 10:30 Gram Stain - Final Complete Sputum Endotracheal 08/19/16 10:30 Sputum Culture - Final Complete Sputum Endotracheal HEAVY GROWTH NORMAL RESPIRATORY [place] 08/19/16 12:15 Aerobic Blood Culture - Preliminary Resulted Blood Other NO GROWTH IN 2 DAYS 08/19/16 12:15 Anaerobic Blood Culture - Preliminary Resulted Blood Other NO GROWTH IN 2 DAYS 08/19/16 12:20 Aerobic Blood Culture - Preliminary Resulted Blood Other NO GROWTH IN 2 DAYS 08/19/16 12:20 Anaerobic Blood Culture - Preliminary Resulted Blood Other NO GROWTH IN 2 DAYS . Imaging Last Impressions Chest X-Ray 08/21/16 0000 Signed Impressions: Service Date/Time: Sunday, August 21, 2016 05:23 - CONCLUSION: 1. There is no evidence of pneumothorax. Israel Okeefe MD Head CT 08/20/16 1500 Signed Impressions: Service Date/Time: Saturday, August 20, 2016 16:25 - CONCLUSION: 1. No change in large nonhemorrhagic left MCA territory infarction with some mass effect as detailed above. Murphy Persaud Jr., MD Head CTA 08/16/16 0207 Signed Impressions: Service Date/Time: Tuesday, August 16, 2016 04:10 - CONCLUSION: Thrombosed left middle cerebral artery with associated large subacute cerebral infarct. Neftaly Holden MD Neck CTA 08/16/16 0000 Signed Impressions: Service Date/Time: Tuesday, August 16, 2016 04:10 - CONCLUSION: 1. Extracranial carotids are normal. Also normal vertebral arteries. 2. Known malignant right upper lobe mass. Mediastinal and hilar lymphadenopathy seen in the upper chest. Neftaly Holden MD IVC Filter Placement X-Ray 08/16/16 0000 Signed Impressions: Service Date/Time: Tuesday, August 16, 2016 10:30 - CONCLUSION: Uncomplicated inferior vena cava filter placement as above. Israel Okeefe MD Head Magnetic Resonance Angiography 08/16/16 0000 Signed Impressions: Service Date/Time: Tuesday, August 16, 2016 10:27 - CONCLUSION: Markedly abnormal cerebral perfusion corresponding to the large MCA occlusion on the left. Harshad Campbell MD FACR Brain MRI 08/16/16 0000 Signed Impressions: Service Date/Time: Tuesday, August 16, 2016 10:27 - CONCLUSION: Large area of infarction involving the left [place] region. There is occlusion of the distal left MCA. There is some collateralization distally. Harshad Campbell MD FACR Lung Biopsy CT 08/15/16 0000 Signed Impressions: Service Date/Time: July 08:22 - CONCLUSION: Uncomplicated CT guided biopsy of the right upper lobe lung mass. Neftaly Rodriguez MD CT Angiography 08/15/16 0000 Signed Impressions: Service Date/Time: July 13:22 - CONCLUSION: 1. There is acute appearing PE in the right lower lobe segmental and left lower lobe subsegmental pulmonary arteries. These PE are new since the prior CT from 07/09/2016. 2. Small right pneumothorax. 3. Right upper lobe pulmonary mass remains present and measures 4.9 cm. There is associated mediastinal, right hilar, and right supraclavicular lymphadenopathy suspicious for lymphatic spread of disease. Neftaly Rodriguez MD . Procedures 08/16/16 IVC filter 08/15/16 intubated 08/15/16 chest tube Assessment and Plan Disease Oriented Problem List: (1) Respiratory failure Comment: secondary to Pulmonary embolism (2) Lung cancer Comment: Invasisve Adenocarcinoma - primary lung - not a candidate for treatment at this time (3) Stroke (4) Pulmonary embolism (5) DVT (deep venous thrombosis) Comment: not a candidate for anticoagulation due to nature of brain injury (6) Non-STEMI (non-ST elevated myocardial infarction) Symptom Scale: (1) Pain 0-10 Scale: Unable to quantify Comment: secondary to malignancy, recent MCA ischemic infarct, pneumothorax post chest tube, intubation, DVT/PE, bedbound status, etc. On Fentanyl and Diprivan. . (2) Dyspnea 0-10 Scale: Unable to quantify Comment: Lung ca, PE and Pneumothorax - w hx of COPD, remains on vent. Pertinent Non-Medical Issues Psychosocial: . Has a son, Neftaly and daughter. Spiritual: Rastafari Legal: Patient incapacitated to make his health care decisions, uncertain if he will regain capacity given Left MCA infarct. According to [place] statutes, health care proxy decision making falls to his spouse. Ethical issues impacting care: No known concerns at this time. . Important Contacts * Erika Chávez, / HCP, * Neftaly hCávez, son, Prognosis Prognosis is extremely poor in light of malignancy (not a candidate for chemo or radiation), large left MCA stroke, recent SD, recent PE, recent DVT, unable to be on anticoagulation due to the nature of hemorrhage in the brain and high risk for further embolic events. . Code Status: Full Code Plan * Decision Maker: Patient incapacitated to make his health care decisions, uncertain if he will regain capacity given Left MCA infarct. According to [place] statutes, health care proxy decision making falls to his spouse. * FULL CODE * HENRY Jo is no longer with Palliative care team. I will attempt to introduce myself to family. I was advised by Dr. Harrell not to readdress code status at this time. * Per review of notes goals remain aggressive. * Family dynamics: Key is ; Son Neftaly ( biologic son) is on disability - served in [place] and [place] on disability from IED / PTSD. Erika has anxiety disorder. * SYMPTOMS: Dyspnea: secondary to malignancy, PE, COPD, etc. remains on mech vent. Pain: likely secondary to malignancy, recent MCA ischemic infarct, pneumothorax post chest tube, intubation, DVT/PE, bedbound status, etc. On Fentanyl and Diprivan. No new medication recommendations at this time. * Palliative care will continue to follow to assist with symptom management and clarifcation of treatment goals as needed. . Attestation To help prompt me to consider important information that might be impacting today's encounter and assessment, information from prior notes written by myself or my colleagues may have been "brought forward" into today's note. My signature on this note, however, is an attestation that I personally performed the exam, history, and/or decision-making noted today, and, unless otherwise indicated, the interactions with patient, family, and staff as well as the review of records all occurred today. I also attest that the listed assessment and stated plan reflect my best clinical judgment today based on the combination of historical information, prior notes, and today's exam/ interactions. When time spent is documented, it refers only to time spent today by the signer, or if indicated, combined time spent today by collaborating physician/nurse practitioner. XIANG CUBA August 21, 2016 22:07
[2016-08-21] MEDS: ARIPiprazole 15 MG TAB PO SCH (23:55)
[2016-08-22] VITALS (21 sets, daily range): BP systolic 95–113; BP diastolic 54–96; PULSE 56–71; RESP 28; TEMP 98.8–100.1; O2SAT 92–98
[2016-08-22] MEDS: RESP: ALBUTEROL 2.5 MG/IPRATROPIUM 0.5 MG NEB (SCH) NEB ×7 (00:10→23:17)
[2016-08-22] MEDS: SODIUM CHLOR 0.9% 1000 ML INJ 1,000 ML IV SCH (03:30)
[2016-08-22] MEDS: CHLORHEXIDINE GLUCONATE 2 % 1 PACK (2 CLOTHS) TOP SCH (04:00)
[2016-08-22] MEDS: PROPOFOL 1000 MG/100 ML INJ 100 ML IV SCH ×6 (04:43→19:39)
[2016-08-22] MEDS: HEPARIN SODIUM - SQ 10,000 UNITS/ML VIAL SQ SCH ×3 (04:44→19:40)
[2016-08-22] MEDS: PHENYTOIN INJ 100 MG/2 ML VIAL IV SCH ×3 (04:44→19:41)
[2016-08-22] MEDS: methylPREDNISolone SOD SUCC 125 MG/2 ML VIAL IVP SCH ×3 (04:44→19:40)
[2016-08-22] MEDS: fentaNYL DRIP 250 ML IV SCH ×2 (04:44→19:48)
[2016-08-22] MEDS: FAMOTIDINE 20 MG/2 ML VIAL IV PUSH SCH ×2 (04:44→14:49)
[2016-08-22] MEDS: ACETAMINOPHEN 325 MG TAB PO PRN (04:45)
[2016-08-22] MEDS: INSULIN ASPART SUPPLEMENTAL SCALE SQ SCH ×3 (04:45→18:00)
[2016-08-22 05:43] LABS: AUTOMATED NEUTROPHIL # 7.3 TH/MM3 (1.8-7.7); BASOPHIL % 0.1 % (0.0-2.0); EOSINOPHIL % 0.5 % (0.0-4.0); HEMATOCRIT 29.4 % (39.0-51.0); HEMO FLAGS DIFF FINAL; LYMPH % 9.3 % (9.0-44.0); LYMPHOCYTE # 0.8 TH/MM3 (1.0-4.8); MEAN CELL VOLUME 93.1 FL (80.0-100.0); MEAN CORPUSCULAR HEMOGLOBIN 30.9 PG (27.0-34.0); MEAN CORPUSCULAR HGB CONC 33.2 % (32.0-36.0); MONO % 6.9 % (0.0-8.0); NEUT % 83.2 % (16.0-70.0); PLATELET COUNT 116 TH/MM3 (150-450); RED BLOOD COUNT 3.16 MIL/MM3 (4.50-5.90); RED CELL DISTRIBUTION WIDTH 14.2 % (11.6-17.2); WHITE BLOOD COUNT 8.8 TH/MM3 (4.0-11.0)
[2016-08-22 06:25] LABS: ALKALINE PHOSPHATASE 49 U/L (45-117); ALT (GPT) 30 U/L (12-78); ANION GAP 6 MEQ/L (5-15); AST (GOT) 24 U/L (15-37); BICARBONATE 34.4 MEQ/L (21.0-32.0); BLOOD UREA NITROGEN 29 MG/DL (7-18); CHLORIDE 108 MEQ/L (98-107); GLOMERULAR FILTRATION RATE 90 ML/MIN (>89); POTASSIUM 4.4 MEQ/L (3.5-5.1); SODIUM (NA) 148 MEQ/L (136-145); TOTAL BILIRUBIN ADULT 0.2 MG/DL (0.2-1.0)
--- NOTE | 2016-08-22 07:53 | PD.ONC.PN ---
Subjective Subjective Remarks Sedated on vent. No new events reported. Objective Data Date Time Temp Pulse Resp B/P Pulse Ox O2 Delivery O2 Flow Rate FiO2 08/22/16 07:34 96 60 08/22/16 06:00 60 08/22/16 06:00 65 95/54 08/22/16 04:47 95 60 08/22/16 04:00 63 08/22/16 04:00 63 28 104/65 94 109/63 08/22/16 04:00 60 08/22/16 02:00 64 08/22/16 00:11 94 60 08/22/16 00:00 60 08/22/16 00:00 100.1 68 28 111/71 92 112/66 08/22/16 00:00 68 08/21/16 22:00 65 08/21/16 20:15 94 60 08/21/16 20:00 100.1 66 28 100/67 94 105/64 08/21/16 20:00 60 08/21/16 20:00 66 08/21/16 19:00 94 Mechanical Ventilator 60 08/21/16 18:00 77 128/74 08/21/16 18:00 77 28 128/74 95 08/21/16 17:30 68 28 118/67 98 08/21/16 17:00 68 28 121/70 97 08/21/16 16:48 95 60 08/21/16 16:30 62 28 109/62 93 08/21/16 16:00 60 08/21/16 16:00 98.9 63 28 98/67 91 110/62 08/21/16 15:30 65 28 111/64 94 08/21/16 15:00 66 28 104/60 91 08/21/16 14:30 67 28 104/60 91 08/21/16 14:00 75 28 116/66 92 08/21/16 13:30 63 28 111/67 95 08/21/16 13:00 65 28 111/65 95 08/21/16 12:30 66 28 110/64 94 08/21/16 12:00 60 08/21/16 12:00 64 108/68 111/65 08/21/16 12:00 98.6 64 28 108/68 95 111/65 08/21/16 11:30 62 28 110/63 94 08/21/16 11:28 94 60 08/21/16 11:00 64 28 115/67 94 08/21/16 10:30 75 28 126/73 95 08/21/16 10:00 68 28 128/78 96 08/21/16 09:30 66 28 113/76 95 08/21/16 09:21 73 28 140/88 96 116/102 08/21/16 09:00 74 28 125/88 97 08/21/16 08:58 97 60 08/21/16 08:30 68 28 129/72 95 08/21/16 08:01 81 28 140/101 96 148/80 08/21/16 08:00 85 145/77 08/21/16 08:00 60 08/21/16 08:00 99.4 85 28 145/77 94 08/22/16 08/22/16 08/22/16 07:00 15:00 23:00 Intake Total 1267 ml Output Total 700 ml Balance 567 ml Result Diagram: 08/22/16 0500 08/22/16 0500 Laboratory Results Laboratory Tests Test 08/21/16 08/21/16 08/22/16 08/22/16 12:00 18:56 01:00 05:00 Sodium Level 148 MEQ/L 146 MEQ/L 147 MEQ/L 148 MEQ/L Potassium Level 4.3 MEQ/L 4.4 MEQ/L Chloride Level 106 MEQ/L 108 MEQ/L Carbon Dioxide Level 35.7 MEQ/L 34.4 MEQ/L Anion Gap 4 MEQ/L 6 MEQ/L Blood Urea Nitrogen 29 MG/DL 29 MG/DL Creatinine 0.95 MG/DL 0.89 MG/DL Estimat Glomerular Filtration 84 ML/MIN 90 ML/MIN Rate Random Glucose 137 MG/DL 114 MG/DL Calcium Level 7.7 MG/DL 7.7 MG/DL Total Bilirubin 0.2 MG/DL 0.2 MG/DL Aspartate Amino Transf 26 U/L 24 U/L (AST/SGOT) Alanine Aminotransferase 28 U/L 30 U/L (ALT/SGPT) Alkaline Phosphatase 49 U/L 49 U/L Total Protein 5.5 GM/DL 5.1 GM/DL Albumin 2.2 GM/DL 2.0 GM/DL Phenytoin (Dilantin) Level 5.1 MCG/ML White Blood Count 8.8 TH/MM3 Red Blood Count 3.16 MIL/MM3 Hemoglobin 9.7 GM/DL Hematocrit 29.4 % Mean Corpuscular Volume 93.1 FL Mean Corpuscular Hemoglobin 30.9 PG Mean Corpuscular Hemoglobin 33.2 % Concent Red Cell Distribution Width 14.2 % Platelet Count 116 TH/MM3 Mean Platelet Volume 9.0 FL Neutrophils (%) (Auto) 83.2 % Lymphocytes (%) (Auto) 9.3 % Monocytes (%) (Auto) 6.9 % Eosinophils (%) (Auto) 0.5 % Basophils (%) (Auto) 0.1 % Neutrophils # (Auto) 7.3 TH/MM3 Lymphocytes # (Auto) 0.8 TH/MM3 Monocytes # (Auto) 0.6 TH/MM3 Eosinophils # (Auto) 0.0 TH/MM3 Basophils # (Auto) 0.0 TH/MM3 CBC Comment DIFF FINAL Differential Comment Culture Results Microbiology Date/Time Procedure Status Source Growth 08/19/16 10:05 Urine Culture - Final Complete Urine Catheterized Urine NO GROWTH IN 48 HOURS. 08/19/16 10:30 Gram Stain - Final Complete Sputum Endotracheal 08/19/16 10:30 Sputum Culture - Final Complete Sputum Endotracheal HEAVY GROWTH NORMAL RESPIRATORY [place] 08/19/16 12:15 Aerobic Blood Culture - Preliminary Resulted Blood Other NO GROWTH IN 2 DAYS 08/19/16 12:15 Anaerobic Blood Culture - Preliminary Resulted Blood Other NO GROWTH IN 2 DAYS 08/19/16 12:20 Aerobic Blood Culture - Preliminary Resulted Blood Other NO GROWTH IN 2 DAYS 08/19/16 12:20 Anaerobic Blood Culture - Preliminary Resulted Blood Other NO GROWTH IN 2 DAYS Administered Medications Medications (Trade) Dose Ordered Sig/Beto Route PRN Reason Start Time Stop Time Status Last Admin Dose Admin Sodium Chloride (NS Flush) 2 ml UNSCH PRN IV FLUSH SEE COMMENTS 08/15/16 07:15 08/20/16 08:34 Sodium Chloride (NS Flush) 2 ml UNSCH PRN IV FLUSH FLUSH AFTER USING IV ACCESS 08/15/16 07:15 08/20/16 08:33 Sodium Chloride (NS Flush) 5 ml Q21D IV FLUSH 08/15/16 07:15 08/20/16 08:34 Sodium Chloride (NS Flush) 5 ml UNSCH PRN IV FLUSH SEE LABEL COMMENTS 08/15/16 07:15 08/20/16 08:34 Sodium Chloride (NS Flush) 2 ml BID IV FLUSH 08/15/16 21:00 08/21/16 21:00 Sodium Chloride (NS Flush) 2 ml UNSCH PRN IV FLUSH FLUSH AFTER USING IV ACCESS 08/15/16 12:15 08/20/16 08:33 Aripiprazole (Abilify) 15 mg HS PO 08/15/16 21:00 08/21/16 23:55 Budesonide/ Formoterol Fumarate (Symbicort 160-4.5 Inh) 2 puff Q12HR INH 08/15/16 21:00 08/20/16 19:41 Gabapentin (Neurontin) 100 mg TID PO 08/15/16 13:00 08/21/16 17:48 Trazodone HCl (Desyrel) 100 mg HS PO 08/15/16 21:00 Hold 08/18/16 19:33 Acetaminophen (Tylenol) 650 mg Q4H PRN PO Temp > 100.4 08/15/16 12:15 08/22/16 04:45 Docusate Sodium (Colace) 100 mg BID PRN PO CONSTIPATION 08/15/16 12:15 08/20/16 13:14 Miscellaneous Information 1 [id number] XX 08/15/16 13:15 08/15/16 19:00 Chlorhexidine Gluconate Taper DAILY@04 TOP 08/16/16 04:00 08/12/17 03:59 08/20/16 02:00 Heparin Sodium/ Dextrose 250 ml @ 0 mls/hr TITRATE IV 08/15/16 13:15 Hold 08/15/16 15:22 Levofloxacin/ Dextrose (Levaquin 750 Mg Premix Inj) 150 ml @ 100 mls/hr Q24H IV 08/15/16 16:00 08/21/16 16:39 Hydralazine HCl (Apresoline Inj) 10 mg Q2HR PRN IV PUSH BP >150/90 08/15/16 16:00 08/16/16 04:36 Famotidine (Pepcid Inj) 20 mg Q12H IV PUSH 08/15/16 16:00 08/22/16 04:44 Phenytoin Sodium (Dilantin Inj) 100 mg Q8HR IV 08/16/16 14:00 08/22/16 04:44 Chlorhexidine Gluconate 15 ml 15 ml BID@08,20 MT 08/16/16 20:00 08/21/16 21:41 Propofol 100 ml @ 0 mls/hr TITRATE IV 08/16/16 15:30 08/22/16 04:43 Norepinephrine Bitartrate 250 ml @ 0 mls/hr TITRATE IV 08/16/16 15:30 08/18/16 14:43 Sodium Chloride 1,000 ml @ 20 mls/hr Q24H IV 08/16/16 15:30 08/22/16 03:30 Fentanyl Citrate (fentaNYL DRIP) 250 ml @ 0 mls/hr TITRATE IV 08/17/16 10:45 08/22/16 04:44 Insulin Aspart (NovoLOG SUPPLEMENTAL SCALE) 1 Q6HR SQ 08/17/16 12:00 08/19/16 05:10 Methylprednisolone Sodium Succinate (SoluMEDROL INJ) 60 mg Q8HR IVP 08/17/16 14:00 08/22/16 04:44 Aspirin 162 mg 162 mg DAILY CHEW 08/17/16 12:15 08/21/16 09:00 Sodium Chloride (Sodium Chloride 3% Inj) 500 ml @ 25 mls/hr Q20H IV 08/18/16 11:15 08/21/16 23:56 Sennosides (Senna Liq) 8.8 mg DAILY OG-TUBE 08/18/16 11:30 08/21/16 09:00 Heparin Sodium (Porcine) (Heparin Inj) 5,000 units Q8HR SQ 08/19/16 22:00 08/22/16 04:44 Atorvastatin Calcium (Lipitor) 20 mg DAILY PO 08/19/16 20:00 08/21/16 09:00 Objective Remarks GENERAL: Sedated on vent. SKIN: Warm and dry. HEAD: Normocephalic. EYES: No scleral icterus. No injection or drainage. NECK: Supple, trachea midline. No JVD or lymphadenopathy. LYMPHATIC: No adenopathy. CARDIOVASCULAR: Regular rate and rhythm without murmurs. RESPIRATORY: Breath sounds equal bilaterally. Vents assisted. GASTROINTESTINAL: Abdomen soft, non-tender, nondistended. EXTREMITIES: No cyanosis, or edema. MUSCULOSKELETAL: Adequate muscle tone. NEUROLOGICAL: Sedated Assessment/Plan Problem List: (1) Lung cancer Status: Acute Plan: 5/2: pathology shows invasive poorly differentiated adenocarcinoma of likely lung primary. -- Right upper lobe lung mass measured 4.4 cm with mediastinal, right supraclavicular and right hilar adenopathy. --went to [facility] and had PET scan done which did not show any other distant metastasis. -- Based on the CT scan finding he is clinically stage IIIA. (2) Pulmonary embolism Status: Acute Plan: --no significant LE edema --has IVC filter. Not candidate for full anticoagulation at this time. --on heparin prophylaxis and antiplatelet therapy. --s/p IVC filter placement (3) Respiratory failure Status: Acute Plan: --on mechanical ventilation --developed a small pneumothorax after the biopsy. ++bilateral subsegmental pulmonary embolism. ++left lower extremity deep venous thrombosis dx more than a month ago (4) Stroke Status: Acute Plan: --ns following --Right hemiplegia Assessment 50y/o male with lung mass admitted with respiratory failure. History: (from original consult): had a port placement on Friday and reportedly doing well, yesterday when the he went for biopsy of lung mass. --was having shortness of breath after the biopsy and he was found to have pneumothorax and he developed worsening respiratory distress. --CT angiogram was done which showed bilateral subsegmental pulmonary embolism. --was admitted to the ICU. A chest tube was placed, reportedly in the evening he developed right-sided paralysis and was found to have a major stroke in the left hemisphere. h/o COPD, LLE DVT, osteopenia Plan 1. Await repeat head CT. 2. Continue supportive care. Kris Murry MD August 22, 2016 07:53
[2016-08-22] MEDS ORDERED: ACETAMINOPHEN 650 MG/20.3 ML UDC PO PRN (08:00)
--- NOTE | 2016-08-22 08:19 | HHI.CCPN ---
Subjective Remarks/Hospital Course 08/15: Mr. Cooley is a 50 y/o CM with a PMHx of COPD who continues to smoke and is s/p R lung biopsy secondary to a recently found lung mass presenting with dyspnea. Prior to his biopsy today, he was being treated as an outpatient with a Medrol dose pack with Levaquin for a COPD exacerbation. He endorsed dyspnea on exertion today, but denied any fevers, chest pain, wheezing, cough, or LE edema/tenderness. He has a history of LLE DVT diagnosed in 07/05, but has been off his anticoagulation for approximately 11 days (Previously on Xarelto). He had a port placed 2 days ago and lung biopsy today. He has been short of breath since 1 day prior to the procedure. After his biopsy, he was found to have a small apical pneumothorax on CXR, diaphoretic, and tachypneic with hypoxia of 81 % on room air. He was placed on 4L and improved to 85%. He was then placed on a non-rebreather and transferred to the ICU. On arrival he was tachypneic with oxygen saturation in the upper 80s. CTA showed acute pulmonary embolisms of the BL lower lobes with a small R pneumothorax. Therefore a R sided chest tube was placed and heparin drip without bolus was initiated. The patient has been continued on Levaquin ABX, has been give steroids with multiple breathing treatments, and has been placed on BiPAP. 08/16: Patient was noted to have an elevated troponin and was diagnosed to have a non-ST elevation WA last evening. He was on BiPAP at the time with full facemask. It was noticed that he was not moving the right side of his body when he was turned to administer rectal aspirin and subsequent head CT and CTA revealed significant edema in the left cerebral hemisphere and occluded left MCA with thrombus. Neurology was contacted by Dr. Martínez and due to concern for hemorrhagic transformation heparin was held. Dr. Martínez discussed the case with Dr. Okeefe from interventional radiology who did not feel that the patient was a good candidate for clot retrieval due to high risk for hemorrhagic transformation given the amount of cerebral edema and extent of infarct. Patient was given mannitol. This morning when I evaluated patient was in BiPAP with full facemask with a dense right hemiplegia with some spontaneous movement involving his left upper extremity. He was intubated and placed on mechanical ventilation for airway protection and hyperventilation in view of cerebral edema as well as for borderline respiratory status. Subsequently he underwent MRI brain which showed large left MCA territory infarct with some collateral flow. IVC filter was placed by interventional radiology after discussion with Dr. Murry, his oncologist as patient is now off heparin and is at risk for recurrent PE. 08/17: Remains sedated, orally intubated on mechanical ventilation. On 3% saline overnight. Head CT done this morning shows slight increase in cerebral edema in the area of left MCA territory infarct which appears more hypodense. Remains on Levophed 10mcg/min. Moves left side spontaneously however not following commands. Right hemiplegia persists 08/18: Remains sedated, orally intubated on mechanical ventilation. Remains on 3 % saline, Levophed. Awakens on lightening sedation and moves left side spontaneously. Right hemiplegia persists though machinist 2nd shift RN noticed some flickering movement in his fingers on the right. 08/19: Remains sedated, orally intubated on mechanical ventilation. Off Levophed. Awakens on lightening sedation and moves left side spontaneously. Right hemiplegia persists. Tolerating tube feeds. Spiked temperatures overnight. Parr cultures ordered. Suspect central fever versus infection. On Levaquin currently. 08/20: Remains sedated, orally intubated on mechanical ventilation. Awakens on lightening sedation and moves left side spontaneously. Right hemiplegia persists. Tolerating tube feeds. 08/21: Sedated, arousable, orally intubated on mechanical ventilation. Right hemiplegia persists. Moving left side spontaneously. Tolerating tube feeds. Starting diuresis with Lasix in view of positive fluid balance to mobilize fluid. 08/22:TMax 101.0. Repeat cultures performed .Patient continues on 3% normal saline, CT brain pending this a.m.. Patient moving left upper and lower extremities, spontaneously. No vasopressors needed, hemodynamically stable. Continued right hemiplegia. Patient's at bedside, requesting patient be made DNR and this a.m.. Objective Vital Signs Date Time Temp Pulse Resp B/P Pulse Ox O2 Delivery O2 Flow Rate FiO2 08/22/16 07:34 96 60 08/22/16 06:00 60 08/22/16 06:00 95/54 08/22/16 04:00 28 08/22/16 00:00 100.1 08/21/16 19:00 Mechanical Ventilator 08/19/16 20:00 15.00 Intake and Output 08/21/16 08/21/16 08/22/16 08:00 16:00 00:00 Intake Total 928 ml 1010 ml 1510 ml Output Total 700.0 ml 1800 ml 2020 ml Balance 228.0 ml -790 ml -510 ml Result Diagram: 08/22/16 0500 08/22/16 0500 Other Results Microbiology Date/Time Procedure Status Source Growth 08/19/16 10:05 Urine Culture - Final Complete Urine Catheterized Urine NO GROWTH IN 48 HOURS. 08/19/16 10:30 Gram Stain - Final Complete Sputum Endotracheal 08/19/16 10:30 Sputum Culture - Final Complete Sputum Endotracheal HEAVY GROWTH NORMAL RESPIRATORY [place] [facility] Last Impressions Chest X-Ray 08/21/16 0000 Signed Impressions: Service Date/Time: Sunday, August 21, 2016 05:23 - CONCLUSION: 1. There is no evidence of pneumothorax. Israel Okeefe MD Head CT 08/20/16 1500 Signed Impressions: Service Date/Time: Saturday, August 20, 2016 16:25 - CONCLUSION: 1. No change in large nonhemorrhagic left MCA territory infarction with some mass effect as detailed above. Murphy Persaud Jr., MD Head CTA 08/16/16 0207 Signed Impressions: Service Date/Time: Tuesday, August 16, 2016 04:10 - CONCLUSION: Thrombosed left middle cerebral artery with associated large subacute cerebral infarct. Neftaly Holden MD Neck CTA 08/16/16 0000 Signed Impressions: Service Date/Time: Tuesday, August 16, 2016 04:10 - CONCLUSION: 1. Extracranial carotids are normal. Also normal vertebral arteries. 2. Known malignant right upper lobe mass. Mediastinal and hilar lymphadenopathy seen in the upper chest. Neftaly Holden MD IVC Filter Placement X-Ray 08/16/16 0000 Signed Impressions: Service Date/Time: Tuesday, August 16, 2016 10:30 - CONCLUSION: Uncomplicated inferior vena cava filter placement as above. Israel Okeefe MD Head Magnetic Resonance Angiography 08/16/16 0000 Signed Impressions: Service Date/Time: Tuesday, August 16, 2016 10:27 - CONCLUSION: Markedly abnormal cerebral perfusion corresponding to the large MCA occlusion on the left. Harshad Campbell MD FACR Brain MRI 08/16/16 0000 Signed Impressions: Service Date/Time: Tuesday, August 16, 2016 10:27 - CONCLUSION: Large area of infarction involving the left Sylvian region. There is occlusion of the distal left MCA. There is some collateralization distally. Harshad Campbell MD FACR Lung Biopsy CT 08/15/16 0000 Signed Impressions: Service Date/Time: July 08:22 - CONCLUSION: Uncomplicated CT guided biopsy of the right upper lobe lung mass. Neftaly Rodriguez MD CT Angiography 08/15/16 0000 Signed Impressions: Service Date/Time: July 13:22 - CONCLUSION: 1. There is acute appearing PE in the right lower lobe segmental and left lower lobe subsegmental pulmonary arteries. These PE are new since the prior CT from 07/09/2016. 2. Small right pneumothorax. 3. Right upper lobe pulmonary mass remains present and measures 4.9 cm. There is associated mediastinal, right hilar, and right supraclavicular lymphadenopathy suspicious for lymphatic spread of disease. Neftaly Rodriguez MD Last 48 hours Impressions Chest X-Ray 08/20/16 0600 Signed Impressions: Service Date/Time: Saturday, August 20, 2016 03:45 - CONCLUSION: 1. Improving diffuse right-sided opacity. There is no evidence of pneumothorax. Israel Okeefe MD Head CT 08/19/16 1500 Signed Impressions: Service Date/Time: Friday, August 19, 2016 16:04 - CONCLUSION: Stable brain appearance Neftaly Abad MD Last [address] 08/18/16 0800 Signed Impressions: Service Date/Time: Thursday, August 18, 2016 20:37 - CONCLUSION: Evolving left MCA stroke into an area of encephalomalacia involving the left frontal temporal and parietal lobes. Diane Guzman MD Chest X-Ray 08/18/16 0600 Signed Impressions: Service Date/Time: Thursday, August 18, 2016 03:13 - CONCLUSION: No perceptible pneumothorax. Otherwise no change. Neftaly Holden MD Last [address] 08/17/16 0800 Signed Impressions: Service Date/Time: Wednesday, August 17, 2016 08:23 - CONCLUSION: 1. Evolving left MCA infarct. Galindo Vuong MD Head CTA 08/16/16 0207 Signed Impressions: Service Date/Time: Tuesday, August 16, 2016 04:10 - CONCLUSION: Thrombosed left middle cerebral artery with associated large subacute cerebral infarct. Neftaly Holden MD Neck CTA 08/16/16 Signed Impressions: Service Date/Time: Tuesday, August 16, 2016 04:10 - CONCLUSION: 1. Extracranial carotids are normal. Also normal vertebral arteries. 2. Known malignant right upper lobe mass. Mediastinal and hilar lymphadenopathy seen in the upper chest. Neftaly Holden MD IVC Filter Placement X-Ray 08/16/16 Signed Impressions: Service Date/Time: Tuesday, August 16, 2016 10:30 - CONCLUSION: Uncomplicated inferior vena cava filter placement as above. Israel Okeefe MD Head Magnetic Resonance Angiography 08/16/16 Signed Impressions: Service Date/Time: Tuesday, August 16, 2016 10:27 - CONCLUSION: Markedly abnormal cerebral perfusion corresponding to the large MCA occlusion on the left. Harshad Campbell MD FACR Head CT 08/16/16 Signed Impressions: Service Date/Time: Tuesday, August 16, 2016 00:56 - CONCLUSION: Large left sided cerebral edema as above, appearance most typical of a subacute middle cerebral artery distribution infarct. No bleed or definite mass. Neftaly Holden MD Chest X-Ray 08/16/16 Signed Impressions: Service Date/Time: Tuesday, August 16, 2016 15:33 - CONCLUSION: 1. Uncomplicated line placement. No evidence of pneumothorax. 2. Decreasing right apical pneumothorax Israel Okeefe MD Chest X-Ray 08/16/16 Signed Impressions: Service Date/Time: Tuesday, August 16, 2016 08:15 - CONCLUSION: 1. Interval intubation. 2. Placement of nasogastric tube with the tip in the distal esophagus. This could be advanced at least 7 cm. 3. Mild interval increase in size the small right apical pneumothorax. 4. Increasing opacity in the right lung base most consistent with infiltrate. Barrett Holman MD Brain MRI 08/16/16 Signed Impressions: Service Date/Time: Tuesday, August 16, 2016 10:27 - CONCLUSION: Large area of infarction involving the left Sylvian region. There is occlusion of the distal left MCA. There is some collateralization distally. Harshad Campbell MD FACR Chest X-Ray 08/15/16 1300 Signed Impressions: Service Date/Time: July 12:55 - CONCLUSION: Stable tiny right apical pneumothorax. Neftaly Rodriguez MD Chest X-Ray 08/15/16 1200 Signed Impressions: Service Date/Time: July 11:51 - CONCLUSION: There is a new tiny apical right pneumothorax. Neftaly Rodriguez MD Last 72 hours Impressions Chest X-Ray 08/15/16 1300 Signed Impressions: Service Date/Time: July 12:55 - CONCLUSION: Stable tiny right apical pneumothorax. Neftaly Rodriguez MD Chest X-Ray 08/15/16 1200 Signed Impressions: Service Date/Time: July 11:51 - CONCLUSION: There is a new tiny apical right pneumothorax. Neftaly Rodriguez MD Chest X-Ray 08/15/16 1030 Signed Impressions: Service Date/Time: July 10:20 - CONCLUSION: No pneumothorax following recent right lung biopsy. Neftaly Rodriguez MD Lung Biopsy CT 08/15/16 0000 Signed Impressions: Service Date/Time: July 08:22 - CONCLUSION: Uncomplicated CT guided biopsy of the right upper lobe lung mass. Neftaly Rodriguez MD Chest X-Ray 08/15/16 0000 Signed Impressions: Service Date/Time: July 07:12 - CONCLUSION: 1. No pneumothorax is visualized. Right chest wall Fnaara-i-Mkry distal tip is at the cavoatrial junction. 2. Right upper lobe pulmonary mass is again visualized. Neftaly Rodriguez MD CT Angiography 08/15/16 0000 Signed Impressions: Service Date/Time: July 13:22 - CONCLUSION: 1. There is acute appearing PE in the right lower lobe segmental and left lower lobe subsegmental pulmonary arteries. These PE are new since the prior CT from 07/09/2016. 2. Small right pneumothorax. 3. Right upper lobe pulmonary mass remains present and measures 4.9 cm. There is associated mediastinal, right hilar, and right supraclavicular lymphadenopathy suspicious for lymphatic spread of disease. Neftaly Rodriguez MD Objective Remarks GENERAL: Critical ill-appearing male, sedated and intubated SKIN: Warm and dry. HEAD: Atraumatic. Normocephalic. EYES: Pupils equal and round, reactive 3 mm . No scleral icterus. No injection or drainage. ENT: No nasal bleeding or discharge. Mucous membranes pink and moist. NECK: Trachea midline. No JVD. CARDIOVASCULAR: Normal rate, regular rhythm. S1-S2 RESPIRATORY: Mechanical ventilation .Right chest tube to waterseal , minimal serous drainage noted. No accessory muscle use. Clear to auscultation. Breath sounds equal bilaterally. Ywybuy-p-Iwnd noted right chest wall. GASTROINTESTINAL: Abdomen soft, non-tender, nondistended. Hypoactive bowel sounds. OGT infusing MUSCULOSKELETAL: Extremities without clubbing, cyanosis, or edema. No obvious deformities. NEUROLOGICAL: Intubated and sedated, RASS -2. Notice spontaneous movement of left upper and left lower extremities Procedures CT brain this am Urinary Catheter: Yes Date of Insertion: Aug 16, 2016 Line: Central Venous Catheter Side: Left Location: Jugular A/P Assessment and Plan Neuro: Left MCA territory ischemic infarct with cerebral edema Encephalopathy Bipolar Disorder with depression/anxiety Sedation with propofol/ fentanyl, daily sedation vacation. Neurochecks per protocol. Neurology, Dr. Jean following , Neurosurgery Dr. Wisdom signed off Continue 3% saline for cerebral edema, hold for serum osmolarity greater than 320. Continue antiplatelet therapy with aspirin. Repeat head CT 08/20 shows some encephalomalacia in the site of left MCA territory infarct, cerebral edema persists. Follow-up head CT ordered for 08/22 AM. Monitor neuro status with neuro checks per protocol CV: Hypotension-resolved Non-ST elevation WA History of HTN, CAD with WA s/p stent placement(2002) 08/16- 2-D echo with no evidence of R heart strain. Difficult study due to tachycardia. EF 35-40%. Moderate mid to distal inferior hypokinesis and distal lateral hypokinesis. Trace tricuspid regurgitation. PA peak pressure 53 mmHg. Elevated cardiac enzymes/ EKG consistent with non-ST elevation WA. On aspirin 162mg daily. Cardiology following- Dr. May Off Levophed 07/21. Hold all antihypertensives. KVO IV fluids. We will consider adding low-dose beta camila if no further hypotension. Started lipitor 20 mg by mouth daily (08/19). Initiated diuresis with Lasix and 08/21 to mobilize fluid Pulm: Right pneumothorax(resolved) BL PEs on CTA COPD Exacerbation R Lung mass s/p biopsy-poorly differentiated adenocarcinoma R sided chest tube to suction Continue mechanical ventilation. Vent bundle, bronchodilators Solumedrol 60mg Q12H Right sided chest tube in place, no air leak noted. End-tidal CO2 monitoring, attempt keeping PCO2 30-35mm Hg Hold C Pap trials till cerebral edema decreases for the next few days. CTA-segmental or subsegmental PTE in the right lower lobe, subsegmental PE left lower lobe, right upper lobe mass 4.9 cm associated with mediastinal, right hilar, right supraclavicular lymphadenopathy suspicious for spread of disease. Renal/: KVO IVF as patient with decreased EF. Starting diuresis with Lasix on 08/21 as patient has been off Levophed for a few days now. Strict intake output, monitor and replete electrolytes, follow BUN/ creatinine. ID: Continue with empiric abx (Levaquin). sputum cultures and blood cultures repeated on 08/19 for fevers which may be central versus related to infection though patient does not have leukocytosis. Legionella and Streptococcus urinary antigens negative. Tylenol for temperature greater than 101.0 08/19 urine culture- NGTD 08/19 blood culture- NGTD Heme-onc: DVT/PE/right apical lung mass - poorly differentiated adenocarcinoma on pathology Off anticoagulation with heparin due to large stroke with risk for hemorrhagic transformation. IVC filter placed . Continue aspirin. Started subcutaneous heparin on 08/17 after clearing with neurosurgery. Monitor CBC. Thrombocytopenia noted, being followed by Dr. Murry from Oncology. Will need full anticoagulation when okay with neurosurgery for DVT/ PE. Endocrine: Hx of DM per chart review, not on medications at home SSI per protocol GI: Continue tube feeds with Glucerna. Prophylaxis with Pepcid BID No BM since admission- MiraLAX added to bowel regimen DVT prophylaxis: SCDs. SQ heparin Discussed with LIVESTOCK BUYER at bedside. 08/22 Requested to come to patient's bedside, discussion with patient's requesting patient be made a no CODE STATUS, DNR at this time. The patient's stated an understanding of the patient's current medical status, and stated that the patient would not want tracheostomy nor PEG. The patient's is requesting a private meeting with palliative to discuss goals of care at this time, without involvement of the children. my billing statement This patient remains critically ill with one or more organ systems which are or may become a threat to life. I have spent in excess of 42 minutes discontinuously in the care and management of this patient. This time is exclusive of procedures, and includes, but is not limited to, evaluation of the patient, review of the medical record, discussions with family, consultants, nursing staff, or respiratory therapy, and documentation in the medical record. Physician Fadumo Richard MD August 22, 2016 08:19
[2016-08-22 08:49] LABS: BLOOD GAS BASE EXCESS 5.6 mmol/L (-2-2); BLOOD GAS CARBOXYHEMOGLOBIN 1.6 % (0-4); BLOOD GAS HCO3 30 mmol/L (22-26); BLOOD GAS METHEMOGLOBIN 1.1 % (0-2); BLOOD GAS O2 HGB SATURATION 93 % (90-100); BLOOD GAS OXYGEN CONTENT 12.7 Vol % (12.0-20.0); BLOOD GAS PCO2 44 mmHg (38-42); BLOOD GAS PO2 80 mmHg (61-120); BLOOD GAS TOTAL HGB 9.6 G/DL (12.0-16.0); CRITICAL VALUE NO; DRAW SITE ART LINE; FIO2 60 %; OXYGEN DEVICE VENTILATOR; STAT NO; TEMP CORR TO 98.6; VENT SETTINGS AC600/28/PEEP5
[2016-08-22] MEDS: TIOTROPIUM BROMIDE 18 MCG INH INH SCH (09:00)
[2016-08-22] MEDS: BUDESONIDE-FORMOTEROL 160/4.5 MCG INHALER INH SCH ×2 (09:00→19:43)
[2016-08-22] MEDS: SENNOSIDES SYRUP 8.8 MG/5 ML CUP OG-TUBE SCH (09:19)
[2016-08-22] MEDS: GABAPENTIN 100 MG CAP PO SCH ×3 (09:19→18:02)
[2016-08-22] MEDS: ATORVASTATIN 20 MG TAB PO SCH (09:19)
[2016-08-22] MEDS: POLYETHYLENE GLYCOL 17 GM PKG PO SCH (09:19)
[2016-08-22] MEDS: ASPIRIN 81 MG CHEW TAB CHEW SCH (09:19)
[2016-08-22] MEDS: SODIUM CHLORIDE 0.9% FLUSH 10 ML FLUSH IV FLUSH SCH ×2 (09:20→19:43)
[2016-08-22] MEDS: CHLORHEXIDINE 0.12% (ORAL KIT) 15 ML CUP MT SCH ×2 (09:20→19:43)
--- NOTE | 2016-08-22 11:17 | HHI.HCPN ---
Reason for visit a. To assist with evaluation and management of symptoms including: Dyspnea, pain b. To assist medical decision maker(s) with: better understanding of current medical conditions; weighing benefits/burdens of medical treatment options; making medical treatment decisions. Subjective/Interval History Patient seen and examined in ICU. No family at bedside. Discussed with Dr. Atkinson who indicates would like to have a private meeting with palliative care. Dr. Atkinson also tells me the elected NO CODE status this morning. Patient going for repeat CT head after my exam. Remains on mech vent, FiO2 60%. Sedated on Diprivan, Fentanyl. Tmax 100.1. BP 95 /54. Labs relatively stable. Tolerating tube feeding. Chest tube in place in right. Oncology, Dr. Murry spoke with family regarding poor prognosis, family hopeful he will wake up and go home. Note indicates family understands patient is not a candidate for chemo/radiation and that cancer will continue to progress. Neurosurgery, Dr. Wisdom has signed off as no indication for surgical intervention anticipated. Cardiology, Dr. May recommends continuation of ASA and statin, full anticoagulation is contraindicated due to large stroke, stable after MD. Neurology, Dr. Jean indicates prognosis guarded. Overall poor prognosis appears poor for meaningful recovery. . Family/friend interactions requested meeting with palliative care at 2pm today. Nurse Tamera reports children are upset that is having private conversations with medical staff and making decisions without them. I called to notify. She indicates she is fine with them getting information and requests we "explain the good and bad" regarding decisions. She tells me she is going to take a nap and will meet me at 2pm. I offered to meet in a different area of the hospital if she desires, she will let me know. arrived 1.5 hours late for our meeting. Spoke with (Erika), step- daughter (Ana M) and son (Aj) at bedside. Family has been arguing as made patient NO CODE without talking to them I spent 1.5 hours with family to provide medical update including CT results. . Advance Directives Living Will: Never completed Health Care Surrogate: Never completed Durable Power of Curing Oven Attendant: Never completed Advance Directive Specifics Health Care Surrogate(s): Spouse, Erika Cooley, Significant change in goals: NO CODE. requested to meet with palliative care privately today, arranged meeting 2pm. . Objective Vital Signs Date Time Temp Pulse Resp B/P Pulse Ox O2 Delivery O2 Flow Rate FiO2 08/22/16 08:00 56 08/22/16 07:34 96 60 08/22/16 07:00 96 Mechanical Ventilator 60 08/22/16 06:00 60 08/22/16 06:00 65 95/54 08/22/16 04:47 95 60 08/22/16 04:00 63 08/22/16 04:00 63 28 104/65 94 109/63 08/22/16 04:00 60 08/22/16 02:00 64 08/22/16 00:11 94 60 08/22/16 00:00 60 08/22/16 00:00 100.1 68 28 111/71 92 112/66 08/22/16 00:00 68 08/21/16 22:00 65 08/21/16 20:15 94 60 08/21/16 20:00 100.1 66 28 100/67 94 105/64 08/21/16 20:00 60 08/21/16 20:00 66 08/21/16 19:00 94 Mechanical Ventilator 60 08/21/16 18:00 77 128/74 08/21/16 18:00 77 28 128/74 95 08/21/16 17:30 68 28 118/67 98 08/21/16 17:00 68 28 121/70 97 08/21/16 16:48 95 60 08/21/16 16:30 62 28 109/62 93 08/21/16 16:00 60 08/21/16 16:00 98.9 63 28 98/67 91 110/62 08/21/16 15:30 65 28 111/64 94 08/21/16 15:00 66 28 104/60 91 08/21/16 14:30 67 28 104/60 91 08/21/16 14:00 75 28 116/66 92 08/21/16 13:30 63 28 111/67 95 08/21/16 13:00 65 28 111/65 95 08/21/16 12:30 66 28 110/64 94 08/21/16 12:00 60 08/21/16 12:00 64 108/68 111/65 08/21/16 12:00 98.6 64 28 108/68 95 111/65 08/21/16 11:30 62 28 110/63 94 08/21/16 11:28 94 60 Intake & Output 08/22/16 08/22/16 07:00 19:00 Intake Total 2777 ml Output Total 2720 ml 0 ml Balance 57 ml 0 ml IV Total 1519 ml Tube Feeding 1058 ml Other 200 ml Output Urine Total 2700 ml Tube Feeding Residual Discard 0 ml 0 ml Chest Tube Drainage Total 20 ml # Bowel Movements 0 Physical Exam CONSTITUTIONAL/GENERAL: This is middle aged, critically ill male, sedated on the ventilator TUBES/LINES/DRAINS: ETT, OG, Simon catheter, right chest tube,right chest port , Simon. SKIN: No jaundice, rashes, or lesions. Ecchymoses on upper extremities. No wounds seen anteriorly. Skin temperature appropriate. Not diaphoretic. EYES: eyes closed. CARDIOVASCULAR: Regular rate and rhythm without murmurs, gallops, or rubs. RESPIRATORY/CHEST: Right chest tube, Symmetric, unlabored respirations on vent. Scattered course breath sounds. GASTROINTESTINAL: Abdomen soft, nondistended. Bowel sounds hypoactive. GENITOURINARY: Without palpable bladder distension. Simon catheter in place. MUSCULOSKELETAL: Extremities with trace edema. No mottling or clubbing. Right hemiplegia. NEUROLOGICAL: Sedated on mech vent. PSYCHIATRIC: Sedated. . Diagnostic Tests Laboratory Laboratory Tests Test 08/19/16 08/19/16 08/19/16 08/19/16 12:15 15:15 18:10 23:00 Sodium Level 149 MEQ/L 147 MEQ/L 148 MEQ/L (136-145) (136-145) (136-145) Serum Osmolality 318 MOSM/KG 316 MOSM/KG 319 MOSM/KG (275-295) (275-295) (275-295) Blood Gas Puncture Site ART LINE Blood Gas Patient Temperature 98.6 Blood Gas HCO3 28 mmol/L (22-26) Blood Gas Base Excess 3.7 mmol/L (-2-2) Blood Gas Oxygen Saturation 91 % (90-100) Arterial Blood pH 7.41 (7.380-7.420) Arterial Blood Partial 46 mmHg (38-42) Pressure CO2 Arterial Blood Partial 71 mmHg Pressure O2 (61-120) Arterial Blood Oxygen Content 12.7 Vol % (12.0-20.0) Arterial Blood 1.6 % (0-4) Carboxyhemoglobin Arterial Blood Methemoglobin 1.0 % (0-2) Blood Gas Hemoglobin 9.8 G/DL (12.0-16.0) Oxygen Delivery Device VENTILATOR Blood Gas Ventilator Setting 550/28/PEEP5 Blood Gas Inspired Oxygen 40 % Test 08/20/16 08/20/16 08/20/16 08/20/16 03:50 08:35 12:45 18:15 White Blood Count 9.2 TH/MM3 (4.0-11.0) Red Blood Count 3.23 MIL/MM3 (4.50-5.90) Hemoglobin 10.1 GM/DL (13.0-17.0) Hematocrit 30.0 % (39.0-51.0) Mean Corpuscular Volume 92.9 FL (80.0-100.0) Mean Corpuscular Hemoglobin 31.3 PG (27.0-34.0) Mean Corpuscular Hemoglobin 33.7 % Concent (32.0-36.0) Red Cell Distribution Width 14.3 % (11.6-17.2) Platelet Count 111 TH/MM3 (150-450) Mean Platelet Volume 8.7 FL (7.0-11.0) Neutrophils (%) (Auto) 84.1 % (16.0-70.0) Lymphocytes (%) (Auto) 8.8 % (9.0-44.0) Monocytes (%) (Auto) 6.9 % (0.0-8.0) Eosinophils (%) (Auto) 0.1 % (0.0-4.0) Basophils (%) (Auto) 0.1 % (0.0-2.0) Neutrophils # (Auto) 7.7 TH/MM3 (1.8-7.7) Lymphocytes # (Auto) 0.8 TH/MM3 (1.0-4.8) Monocytes # (Auto) 0.6 TH/MM3 (0-0.9) Eosinophils # (Auto) 0.0 TH/MM3 (0-0.4) Basophils # (Auto) 0.0 TH/MM3 (0-0.2) CBC Comment DIFF FINAL Differential Comment Sodium Level 149 MEQ/L 149 MEQ/L 150 MEQ/L (136-145) (136-145) (136-145) Potassium Level 4.6 MEQ/L (3.5-5.1) Chloride Level 115 MEQ/L (98-107) Carbon Dioxide Level 31.2 MEQ/L (21.0-32.0) Anion Gap 3 MEQ/L (5-15) Blood Urea Nitrogen 32 MG/DL (7-18) Creatinine 0.85 MG/DL (0.60-1.30) Estimat Glomerular Filtration 95 ML/MIN (>89) Rate Random Glucose 128 MG/DL (74-106) Serum Osmolality 322 MOSM/KG 317 MOSM/KG 316 MOSM/KG (275-295) (275-295) (275-295) Calcium Level 7.7 MG/DL (8.5-10.1) Phosphorus Level 3.4 MG/DL (2.5-4.9) Magnesium Level 2.7 MG/DL (1.5-2.5) Total Bilirubin 0.1 MG/DL (0.2-1.0) Aspartate Amino Transf 17 U/L (15-37) (AST/SGOT) Alanine Aminotransferase 29 U/L (12-78) (ALT/SGPT) Alkaline Phosphatase 40 U/L (45-117) Total Protein 5.2 GM/DL (6.4-8.2) Albumin 2.3 GM/DL (3.4-5.0) Blood Gas Puncture Site ART LINE Blood Gas Patient Temperature 98.6 Blood Gas HCO3 30 mmol/L (22-26) Blood Gas Base Excess 5.2 mmol/L (-2-2) Blood Gas Oxygen Saturation 92 % (90-100) Arterial Blood pH 7.36 (7.380-7.420) Arterial Blood Partial 55 mmHg (38-42) Pressure CO2 Arterial Blood Partial 79 mmHg Pressure O2 (61-120) Arterial Blood Oxygen Content 13.3 Vol % (12.0-20.0) Arterial Blood 1.4 % (0-4) Carboxyhemoglobin Arterial Blood Methemoglobin 1.2 % (0-2) Blood Gas Hemoglobin 10.3 G/DL (12.0-16.0) Oxygen Delivery Device VENTILATOR Blood Gas Ventilator Setting A/C 24/550/5PEEP Blood Gas Inspired Oxygen 50 % Protein S Activity 181 % (65 - 160) Test 08/20/16 08/21/16 08/21/16 08/21/16 21:40 00:10 05:00 05:20 Blood Gas Puncture Site ART LINE ART LINE Blood Gas Patient Temperature 98.6 98.6 Blood Gas HCO3 30 mmol/L 30 mmol/L (22-26) (22-26) Blood Gas Base Excess 5.3 mmol/L 5.2 mmol/L (-2-2) (-2-2) Blood Gas Oxygen Saturation 94 % (90-100) 92 % (90-100) Arterial Blood pH 7.41 7.42 (7.380-7.420) (7.380-7.420) Arterial Blood Partial 47 mmHg (38-42) 46 mmHg (38-42) Pressure CO2 Arterial Blood Partial 84 mmHg 71 mmHg Pressure O2 (61-120) (61-120) Arterial Blood Oxygen Content 12.5 Vol % 12.6 Vol % (12.0-20.0) (12.0-20.0) Arterial Blood 1.5 % (0-4) 1.5 % (0-4) Carboxyhemoglobin Arterial Blood Methemoglobin 1.1 % (0-2) 1.2 % (0-2) Blood Gas Hemoglobin 9.4 G/DL 9.7 G/DL (12.0-16.0) (12.0-16.0) Oxygen Delivery Device VENTILATOR VENTILATOR Blood Gas Ventilator Setting AC//550/PEEP AC//600/PEEP 5 5 Blood Gas Inspired Oxygen 60 % 60 % Sodium Level 149 MEQ/L 149 MEQ/L (136-145) (136-145) Serum Osmolality 315 MOSM/KG 316 MOSM/KG (275-295) (275-295) White Blood Count 8.5 TH/MM3 (4.0-11.0) Red Blood Count 3.16 MIL/MM3 (4.50-5.90) Hemoglobin 9.8 GM/DL (13.0-17.0) Hematocrit 28.9 % (39.0-51.0) Mean Corpuscular Volume 91.7 FL (80.0-100.0) Mean Corpuscular Hemoglobin 31.2 PG (27.0-34.0) Mean Corpuscular Hemoglobin 34.0 % Concent (32.0-36.0) Red Cell Distribution Width 14.1 % (11.6-17.2) Platelet Count 108 TH/MM3 (150-450) Mean Platelet Volume 8.9 FL (7.0-11.0) B-Type Natriuretic Peptide 1437 PG/ML (0-100) Test 08/21/16 08/21/16 08/22/16 08/22/16 12:00 18:56 01:00 05:00 Sodium Level 148 MEQ/L 146 MEQ/L 147 MEQ/L 148 MEQ/L (136-145) (136-145) (136-145) (136-145) Potassium Level 4.3 MEQ/L 4.4 MEQ/L (3.5-5.1) (3.5-5.1) Chloride Level 106 MEQ/L 108 MEQ/L (98-107) (98-107) Carbon Dioxide Level 35.7 MEQ/L 34.4 MEQ/L (21.0-32.0) (21.0-32.0) Anion Gap 4 MEQ/L (5-15) 6 MEQ/L (5-15) Blood Urea Nitrogen 29 MG/DL (7-18) 29 MG/DL (7-18) Creatinine 0.95 MG/DL 0.89 MG/DL (0.60-1.30) (0.60-1.30) Estimat Glomerular Filtration 84 ML/MIN (>89) 90 ML/MIN (>89) Rate Random Glucose 137 MG/DL 114 MG/DL (74-106) (74-106) Calcium Level 7.7 MG/DL 7.7 MG/DL (8.5-10.1) (8.5-10.1) Total Bilirubin 0.2 MG/DL 0.2 MG/DL (0.2-1.0) (0.2-1.0) Aspartate Amino Transf 26 U/L (15-37) 24 U/L (15-37) (AST/SGOT) Alanine Aminotransferase 28 U/L (12-78) 30 U/L (12-78) (ALT/SGPT) Alkaline Phosphatase 49 U/L (45-117) 49 U/L (45-117) Total Protein 5.5 GM/DL 5.1 GM/DL (6.4-8.2) (6.4-8.2) Albumin 2.2 GM/DL 2.0 GM/DL (3.4-5.0) (3.4-5.0) Phenytoin (Dilantin) Level 5.1 MCG/ML (10.0-20.0) White Blood Count 8.8 TH/MM3 (4.0-11.0) Red Blood Count 3.16 MIL/MM3 (4.50-5.90) Hemoglobin 9.7 GM/DL (13.0-17.0) Hematocrit 29.4 % (39.0-51.0) Mean Corpuscular Volume 93.1 FL (80.0-100.0) Mean Corpuscular Hemoglobin 30.9 PG (27.0-34.0) Mean Corpuscular Hemoglobin 33.2 % Concent (32.0-36.0) Red Cell Distribution Width 14.2 % (11.6-17.2) Platelet Count 116 TH/MM3 (150-450) Mean Platelet Volume 9.0 FL (7.0-11.0) Neutrophils (%) (Auto) 83.2 % (16.0-70.0) Lymphocytes (%) (Auto) 9.3 % (9.0-44.0) Monocytes (%) (Auto) 6.9 % (0.0-8.0) Eosinophils (%) (Auto) 0.5 % (0.0-4.0) Basophils (%) (Auto) 0.1 % (0.0-2.0) Neutrophils # (Auto) 7.3 TH/MM3 (1.8-7.7) Lymphocytes # (Auto) 0.8 TH/MM3 (1.0-4.8) Monocytes # (Auto) 0.6 TH/MM3 (0-0.9) Eosinophils # (Auto) 0.0 TH/MM3 (0-0.4) Basophils # (Auto) 0.0 TH/MM3 (0-0.2) CBC Comment DIFF FINAL Differential Comment Test 08/22/16 08:42 Blood Gas Puncture Site ART LINE Blood Gas Patient Temperature 98.6 Blood Gas HCO3 30 mmol/L (22-26) Blood Gas Base Excess 5.6 mmol/L (-2-2) Blood Gas Oxygen Saturation 93 % (90-100) Arterial Blood pH 7.45 (7.380-7.420) Arterial Blood Partial 44 mmHg (38-42) Pressure CO2 Arterial Blood Partial 80 mmHg Pressure O2 (61-120) Arterial Blood Oxygen Content 12.7 Vol % (12.0-20.0) Arterial Blood 1.6 % (0-4) Carboxyhemoglobin Arterial Blood Methemoglobin 1.1 % (0-2) Blood Gas Hemoglobin 9.6 G/DL (12.0-16.0) Oxygen Delivery Device VENTILATOR Blood Gas Ventilator Setting AC600/28/PEEP5 Blood Gas Inspired Oxygen 60 % Result Diagram: 08/22/16 0500 08/22/16 0500 Microbiology Microbiology Date/Time Procedure Status Source Growth 08/19/16 12:15 Aerobic Blood Culture - Preliminary Resulted Blood Other NO GROWTH IN 3 DAYS 08/19/16 12:15 Anaerobic Blood Culture - Preliminary Resulted Blood Other NO GROWTH IN 3 DAYS 08/19/16 12:20 Aerobic Blood Culture - Preliminary Resulted Blood Other NO GROWTH IN 3 DAYS 08/19/16 12:20 Anaerobic Blood Culture - Preliminary Resulted Blood Other NO GROWTH IN 3 DAYS 08/22/16 09:40 Aerobic Blood Culture Received Blood Peripheral Pending 08/22/16 09:40 Anaerobic Blood Culture Received Blood Peripheral Pending 08/22/16 09:49 Aerobic Blood Culture Received Blood Peripheral Pending 08/22/16 09:49 Anaerobic Blood Culture Received Blood Peripheral Pending . Imaging Last Impressions Chest X-Ray 08/21/16 0000 Signed Impressions: Service Date/Time: Sunday, August 21, 2016 05:23 - CONCLUSION: 1. There is no evidence of pneumothorax. Israel Okeefe MD Head CT 08/20/16 1500 Signed Impressions: Service Date/Time: Saturday, August 20, 2016 16:25 - CONCLUSION: 1. No change in large nonhemorrhagic left MCA territory infarction with some mass effect as detailed above. Murphy Persaud Jr., MD Head CTA 08/16/16 0207 Signed Impressions: Service Date/Time: Tuesday, August 16, 2016 04:10 - CONCLUSION: Thrombosed left middle cerebral artery with associated large subacute cerebral infarct. Neftaly Holden MD Neck CTA 08/16/16 0000 Signed Impressions: Service Date/Time: Tuesday, August 16, 2016 04:10 - CONCLUSION: 1. Extracranial carotids are normal. Also normal vertebral arteries. 2. Known malignant right upper lobe mass. Mediastinal and hilar lymphadenopathy seen in the upper chest. Neftaly oHlden MD IVC Filter Placement X-Ray 08/16/16 0000 Signed Impressions: Service Date/Time: Tuesday, August 16, 2016 10:30 - CONCLUSION: Uncomplicated inferior vena cava filter placement as above. Israel Okeefe MD Head Magnetic Resonance Angiography 08/16/16 0000 Signed Impressions: Service Date/Time: Tuesday, August 16, 2016 10:27 - CONCLUSION: Markedly abnormal cerebral perfusion corresponding to the large MCA occlusion on the left. Harshad Campbell MD FACR Brain MRI 08/16/16 0000 Signed Impressions: Service Date/Time: Tuesday, August 16, 2016 10:27 - CONCLUSION: Large area of infarction involving the left Sylvian region. There is occlusion of the distal left MCA. There is some collateralization distally. Harshad Campbell MD FACR Lung Biopsy CT 08/15/16 0000 Signed Impressions: Service Date/Time: July 08:22 - CONCLUSION: Uncomplicated CT guided biopsy of the right upper lobe lung mass. Neftaly Rodriguez MD CT Angiography 08/15/16 0000 Signed Impressions: Service Date/Time: July 13:22 - CONCLUSION: 1. There is acute appearing PE in the right lower lobe segmental and left lower lobe subsegmental pulmonary arteries. These PE are new since the prior CT from 07/09/2016. 2. Small right pneumothorax. 3. Right upper lobe pulmonary mass remains present and measures 4.9 cm. There is associated mediastinal, right hilar, and right supraclavicular lymphadenopathy suspicious for lymphatic spread of disease. Neftaly Rodriguez MD . Procedures 08/16/16 IVC filter 08/15/16 intubated 08/15/16 chest tube Assessment and Plan Disease Oriented Problem List: (1) Respiratory failure Comment: secondary to Pulmonary embolism (2) Lung cancer Comment: Invasisve Adenocarcinoma - primary lung - not a candidate for treatment at this time (3) Stroke (4) Pulmonary embolism (5) DVT (deep venous thrombosis) Comment: not a candidate for anticoagulation due to nature of brain injury (6) Non-STEMI (non-ST elevated myocardial infarction) Symptom Scale: (1) Pain 0-10 Scale: Unable to quantify Comment: secondary to malignancy, recent MCA ischemic infarct, pneumothorax post chest tube, intubation, DVT/PE, bedbound status, etc. On Fentanyl and Diprivan. . (2) Dyspnea 0-10 Scale: Unable to quantify Comment: Lung ca, PE and Pneumothorax - w hx of COPD, remains on vent. Pertinent Non-Medical Issues Psychosocial: . Has a son, Neftaly and daughter. Spiritual: Scientology Legal: Patient incapacitated to make his health care decisions, uncertain if he will regain capacity given Left MCA infarct. According to [place] statutes, health care proxy decision making falls to his spouse. Ethical issues impacting care: No known concerns at this time. . Important Contacts * Erika Chávez, / HCP, * Neftaly Chávez, son, Prognosis Prognosis is extremely poor in light of malignancy (not a candidate for chemo or radiation), large left MCA stroke, recent MD, recent PE, recent DVT, unable to be on anticoagulation due to the nature of hemorrhage in the brain and high risk for further embolic events. . Code Status: No Code Plan * Decision Maker: Patient incapacitated to make his health care decisions, unlikely to regain capacity given Left MCA infarct. According to [place] statutes, health care proxy decision making falls to his spouse. * NO CODE * Met with , son and step-daughter at bedside. Reviewed CT head results with large infarct left increased edema and 6mm shift. Again reviewed overall poor prognosis given underlying malignancy, MD, large left MCA infarct, PE etc. and daughter seem to be leaning toward transition to comfort (not quite there yet) and son is struggling with "giving up too soon." Family understands possible trach/PEG decisions likely next week. indicates "no more surgeries." We agreed to meet with family for any major decisions. Daughter later asking questions about transition to comfort and withdrawal of life support, she indicates she is worried about her brother. Family would like to speak with Dr. Jean to determine plan of care, options, wondering if daily CTs will be done and prognosis. Nurse will notify Dr. Jean that family would like to speak with him. Family appreciates time spent. * SYMPTOMS: Dyspnea: secondary to malignancy, PE, COPD, etc. remains on mech vent. Pain: likely secondary to malignancy, recent MCA ischemic infarct, pneumothorax post chest tube, intubation, DVT/PE, bedbound status, etc. On Fentanyl and Diprivan. No new medication recommendations at this time. * Palliative care will continue to follow to assist with symptom management and clarification of treatment goals as needed. . Time Spent Total Floor Time (mins): 120 Face to Face Time (mins): 90 >50% Counseling/Coord of Care: Yes Attestation To help prompt me to consider important information that might be impacting today's encounter and assessment, information from prior notes written by myself or my colleagues may have been "brought forward" into today's note. My signature on this note, however, is an attestation that I personally performed the exam, history, and/or decision-making noted today, and, unless otherwise indicated, the interactions with patient, family, and staff as well as the review of records all occurred today. I also attest that the listed assessment and stated plan reflect my best clinical judgment today based on the combination of historical information, prior notes, and today's exam/ interactions. When time spent is documented, it refers only to time spent today by the signer, or if indicated, combined time spent today by collaborating physician/nurse practitioner. XIANG CUBA August 22, 2016 11:17
[2016-08-22 11:49] LABS: MAGNESIUM 2.6 MG/DL (1.5-2.5)
[2016-08-22] MEDS: 3% SALINE INJ 500 ML IV SCH (13:45)
--- NOTE | 2016-08-22 13:55 | RADRPT ---
EXAM DATE/TIME: 08/22/2016 11:25 [facility] COMPARISON: CTA BRAIN W 3D RECON, August 16, 2016, 4:10. VENOGRAM IVC W FILTER PLACEMENT, August 16, 2016, 10:30. CT NEEDLE BIOPSY LUNG, RIGHT, August 15, 2016, 8:22. CT BRAIN W/O CONTRAST, August 20, 2016, 16:25. INDICATIONS : Follow up Cerebral edema. RADIATION DOSE: 69.17 CTDIvol (mGy) MEDICAL HISTORY : Carcinoma, lung. SURGICAL HISTORY : Non-responsive. ENCOUNTER: Subsequent ACUITY: 1 day PAIN SCALE: Non-responsive LOCATION: cranial TECHNIQUE: Multiple contiguous axial images were obtained of the head. Using automated exposure control and adj ustment of the mA and/or kV according to patient size, radiation dose was kept as low as reasonably a chievable to obtain optimal diagnostic quality images. FINDINGS: The examination demonstrates a large oval cortical infarct involving the left MCA distribution. There is no acute intracranial hemorrhage. No extra-axial hemorrhage is seen. There is mild diffuse cerebr al edema throughout the left cerebral hemisphere. There is 7 mm of left to right shift. The appearance of the posterior fossa is unremarkable. The visualized osseous structures of the skull are intact. CONCLUSION: 1. Large infarct involving the left hemisphere with 6 mm of [id number]-[id number]-tryal falcine shift. No significa nt hemorrhage is seen within this. The amount of edema associate with this has mildly increased since previous of 08/20/16 Vitor Campbell MD on August 22, 2016 at 13:49 Board Certified Radiologist. This report was verified electronically.
[2016-08-22] MEDS: LEVOFLOXACIN 750 MG PREMIX INJ 150 ML IV SCH (14:47)
--- NOTE | 2016-08-22 17:41 | HHI.PR ---
Review/Management Diagnosis left MCA stroke--prognosis guarded. Plan Repeat CT brain on Friday to follow up. Diagnosis/Plan: Subjective Subjective Comments No acute events reported Active Medications Current Medications Medications (Trade) Dose Ordered Sig/Beto Route Start Time Stop Time Status Last Admin (NS Flush) 2 ml UNSCH PRN IV FLUSH 08/15/16 07:15 08/20/16 08:34 (NS Flush) 2 ml UNSCH PRN IV FLUSH 08/15/16 07:15 08/20/16 08:33 (NS Flush) 5 ml Q21D IV FLUSH 08/15/16 07:15 08/20/16 08:34 (Heparin Central Flush) 500 units Q21D IV FLUSH 08/15/16 07:15 (NS Flush) 5 ml UNSCH PRN IV FLUSH 08/15/16 07:15 08/20/16 08:34 (Heparin Central Flush) 250 units UNSCH PRN IV FLUSH 08/15/16 07:15 (NS Flush) 2 ml BID IV FLUSH 08/15/16 21:00 08/22/16 09:20 (NS Flush) 2 ml UNSCH PRN IV FLUSH 08/15/16 12:15 08/20/16 08:33 (Xanax) 0.25 mg Q8H PRN PO 08/15/16 12:15 (Abilify) 15 mg HS PO 08/15/16 21:00 08/21/16 23:55 (Symbicort 160-4.5 Inh) 2 puff Q12HR INH 08/15/16 21:00 08/20/16 19:41 (Neurontin) 100 mg TID PO 08/15/16 13:00 08/22/16 13:45 ([place] 10-325 Mg) 1 tab Q4H PRN PO 08/15/16 12:15 (Spiriva Inh) 18 mcg DAILY INH 08/16/16 09:00 (Desyrel) 100 mg HS PO 08/15/16 21:00 Hold 08/18/16 19:33 (PROzac) 60 mg DAILY PO 08/16/16 09:00 Hold (Zofran Inj) 4 mg Q6H PRN IV 08/15/16 12:15 (Colace) 100 mg BID PRN PO 08/15/16 12:15 08/20/16 13:14 (Mag-Al Plus Susp Liq) 30 ml Q6H PRN PO 08/15/16 12:15 (Tums Chew) 1,000 mg TID PRN CHEW 08/15/16 12:15 Miscellaneous Information 1 Q361D XX 08/15/16 13:15 08/15/16 19:00 (Chlorhexidine 2% Cloth) Taper DAILY@04 TOP 08/16/16 04:00 08/12/17 03:59 08/20/16 02:00 (Chlorhexidine 2% Cloth) 3 pack UNSCH PRN TOP 08/15/16 13:15 (Heparin Inj) 5,000 units UNSCH PRN IV 08/15/16 19:15 Hold Heparin Sodium (Porcine) 2500 units 2,500 units UNSCH PRN IV 08/15/16 19:15 Hold Heparin Sodium/ Dextrose 250 ml @ 0 mls/hr TITRATE IV 08/15/16 13:15 Hold 08/15/16 15:22 (Levaquin 750 Mg Premix Inj) 150 ml @ 100 mls/hr Q24H IV 08/15/16 16:00 08/22/16 14:47 (Apresoline Inj) 10 mg Q2HR PRN IV PUSH 08/15/16 16:00 08/16/16 04:36 (Pepcid Inj) 20 mg Q12H IV PUSH 08/15/16 16:00 08/22/16 14:49 (D50w (Vial) Inj) 25 ml UNSCH PRN IV PUSH 08/15/16 17:30 (Glucagon Inj) 1 mg UNSCH PRN OTHER 08/15/16 17:30 (Dilantin Inj) 100 mg Q8HR IV 08/16/16 14:00 08/22/16 13:45 Chlorhexidine Gluconate 15 ml 15 ml BID@08,20 MT 08/16/16 20:00 08/22/16 09:20 Propofol 100 ml @ 0 mls/hr TITRATE IV 08/16/16 15:30 08/22/16 14:51 (Levophed-Dextrose Drip) 250 ml @ 0 mls/hr TITRATE IV 08/16/16 15:30 08/18/16 14:43 Terbutaline Sulfate 1 mg 1 mg UNSCH PRN SQ 08/16/16 15:15 Sodium Chloride 1,000 ml @ 20 mls/hr Q24H IV 08/16/16 15:30 08/22/16 03:30 (fentaNYL DRIP) 250 ml @ 0 mls/hr TITRATE IV 08/17/16 10:45 08/22/16 04:44 (NovoLOG SUPPLEMENTAL SCALE) 1 Q6HR SQ 08/17/16 12:00 08/19/16 05:10 (SoluMEDROL INJ) 60 mg Q8HR IVP 08/17/16 14:00 08/22/16 13:44 Aspirin 162 mg 162 mg DAILY CHEW 08/17/16 12:15 08/22/16 09:19 (Sodium Chloride 3% Inj) 500 ml @ 25 mls/hr Q20H IV 08/18/16 11:15 08/22/16 13:45 (Senna Liq) 8.8 mg DAILY OG-TUBE 08/18/16 11:30 08/22/16 09:19 (Heparin Inj) 5,000 units Q8HR SQ 08/19/16 22:00 08/22/16 13:44 (Lipitor) 20 mg DAILY PO 08/19/16 20:00 08/22/16 09:19 (Miralax) 17 gm DAILY PO 08/22/16 09:00 08/22/16 09:19 (Tylenol 650 Mg/ 20 ml Liq) 650 mg Q6H PRN PO 08/22/16 08:00 Allergies Allergies Coded Allergies No Known Allergies (Unverified07/09/16) Exam I&O / VS 08/21/16 08/21/16 08/22/16 15:00 23:00 07:00 Intake Total 1010 ml 1510 ml 1267 ml Output Total 1800 ml 2020 ml 700 ml Balance -790 ml -510 ml 567 ml IV Total 480 ml 862 ml 657 ml Tube Feeding 530 ml 548 ml 510 ml Other 100 ml 100 ml Output Urine Total 1700 ml 2000 ml 700 ml Tube Feeding Residual Discard 0 ml 0 ml Chest Tube Drainage Total 100 ml 20 ml # Bowel Movements 0 0 0 Vital Signs Date Time Temp Pulse Resp B/P Pulse Ox O2 Delivery O2 Flow Rate FiO2 08/22/16 16:47 98 75 08/22/16 16:00 80 08/22/16 16:00 60 08/22/16 16:00 60 28 97/63 98 107/62 08/22/16 14:00 59 08/22/16 13:48 97 80 08/22/16 12:00 98.9 62 28 104/67 92 100/96 08/22/16 12:00 100 08/22/16 12:00 62 08/22/16 11:30 98 100 08/22/16 10:00 65 08/22/16 08:00 98.9 56 28 97/66 96 98/54 08/22/16 08:00 60 08/22/16 08:00 56 08/22/16 07:34 96 60 08/22/16 07:00 96 Mechanical Ventilator 60 08/22/16 06:00 60 08/22/16 06:00 65 95/54 08/22/16 04:47 95 60 08/22/16 04:00 63 08/22/16 04:00 63 28 104/65 94 109/63 08/22/16 04:00 60 08/22/16 02:00 64 08/22/16 00:11 94 60 08/22/16 00:00 60 08/22/16 00:00 100.1 68 28 111/71 92 112/66 08/22/16 00:00 68 08/21/16 22:00 65 08/21/16 20:15 94 60 08/21/16 20:00 100.1 66 28 100/67 94 105/64 08/21/16 20:00 60 08/21/16 20:00 66 08/21/16 19:00 94 Mechanical Ventilator 60 08/21/16 18:00 77 128/74 08/21/16 18:00 77 28 128/74 95 Exam Comments more alert, follows simple commands pupils 2 mm symmetric right hemiplegia. No tonic clonic activity or tremor Objective Radiology Results CT brain-----large left MCA stroke with a small increase in midline shift to left. Micro and Labs Laboratory Tests Test 08/21/16 08/22/16 08/22/16 08/22/16 18:56 01:00 05:00 08:00 Sodium Level 146 147 148 148 Potassium Level 4.3 4.4 Chloride Level 106 108 Carbon Dioxide Level 35.7 34.4 Anion Gap 4 6 Blood Urea Nitrogen 29 29 Creatinine 0.95 0.89 Estimat Glomerular Filtration 84 90 Rate Random Glucose 137 114 Calcium Level 7.7 7.7 Total Bilirubin 0.2 0.2 Aspartate Amino Transf 26 24 (AST/SGOT) Alanine Aminotransferase 28 30 (ALT/SGPT) Alkaline Phosphatase 49 49 Total Protein 5.5 5.1 Albumin 2.2 2.0 Phenytoin (Dilantin) Level 5.1 White Blood Count 8.8 Red Blood Count 3.16 Hemoglobin 9.7 Hematocrit 29.4 Mean Corpuscular Volume 93.1 Mean Corpuscular Hemoglobin 30.9 Mean Corpuscular Hemoglobin 33.2 Concent Red Cell Distribution Width 14.2 Platelet Count 116 Mean Platelet Volume 9.0 Neutrophils (%) (Auto) 83.2 Lymphocytes (%) (Auto) 9.3 Monocytes (%) (Auto) 6.9 Eosinophils (%) (Auto) 0.5 Basophils (%) (Auto) 0.1 Neutrophils # (Auto) 7.3 Lymphocytes # (Auto) 0.8 Monocytes # (Auto) 0.6 Eosinophils # (Auto) 0.0 Basophils # (Auto) 0.0 CBC Comment DIFF FINAL Differential Comment Serum Osmolality 317 Phosphorus Level 3.1 Magnesium Level 2.6 Test 08/22/16 08:42 Blood Gas Puncture Site ART LINE Blood Gas Patient Temperature 98.6 Blood Gas HCO3 30 Blood Gas Base Excess 5.6 Blood Gas Oxygen Saturation 93 Arterial Blood pH 7.45 Arterial Blood Partial 44 Pressure CO2 Arterial Blood Partial 80 Pressure O2 Arterial Blood Oxygen Content 12.7 Arterial Blood 1.6 Carboxyhemoglobin Arterial Blood Methemoglobin 1.1 Blood Gas Hemoglobin 9.6 Oxygen Delivery Device VENTILATOR Blood Gas Ventilator Setting AC600/28/PEEP5 Blood Gas Inspired Oxygen 60 Date/Time Procedure Status Source Growth 08/22/16 09:49 Aerobic Blood Culture Received Blood Peripheral Pending 08/22/16 09:49 Anaerobic Blood Culture Received Blood Peripheral Pending 08/19/16 12:20 Aerobic Blood Culture - Preliminary Resulted Blood Other NO GROWTH IN 3 DAYS 08/19/16 12:20 Anaerobic Blood Culture - Preliminary Resulted Blood Other NO GROWTH IN 3 DAYS 08/19/16 10:30 Gram Stain - Final Complete Sputum Endotracheal 08/19/16 10:30 Sputum Culture - Final Complete Sputum Endotracheal HEAVY GROWTH NORMAL RESPIRATORY [place] 08/19/16 10:05 Urine Culture - Final Complete Urine Catheterized Urine NO GROWTH IN 48 HOURS. Fabrizio Jean PhD August 22, 2016 17:40
[2016-08-22] MEDS: ARIPiprazole 15 MG TAB PO SCH (19:41)
[2016-08-23] VITALS (23 sets, daily range): BP systolic 92–134; BP diastolic 58–94; PULSE 52–79; RESP 23–28; TEMP 98.6–98.9; O2SAT 93–100
[2016-08-23] MEDS: PROPOFOL 1000 MG/100 ML INJ 100 ML IV SCH ×5 (02:10→19:53)
[2016-08-23] MEDS: FAMOTIDINE 20 MG/2 ML VIAL IV PUSH SCH ×2 (02:11→16:27)
[2016-08-23] MEDS: CHLORHEXIDINE GLUCONATE 2 % 1 PACK (2 CLOTHS) TOP SCH (02:11)
[2016-08-23] MEDS: SODIUM CHLOR 0.9% 1000 ML INJ 1,000 ML IV SCH (02:11)
[2016-08-23] MEDS: RESP: ALBUTEROL 2.5 MG/IPRATROPIUM 0.5 MG NEB (SCH) NEB ×6 (04:35→23:43)
--- NOTE | 2016-08-23 04:43 | RADRPT ---
EXAM DATE/TIME: 08/23/2016 03:20 [place] COMPARISON: CHEST SINGLE AP, August 21, 2016, 5:23. INDICATIONS : Evaluate for respiratory failure. MEDICAL HISTORY : Venous insufficiency. Carcinoma, lung. Chronic obstructive pulmonary disease. Diabetes mellitus. SURGICAL HISTORY : Coronary artery stent. ENCOUNTER: Subsequent ACUITY: 1 week PAIN SCORE: Non-responsive. LOCATION: chest FINDINGS: A single view of the chest demonstrates right basilar pleural-parenchymal density. Right-sided chest tube unchanged. No pneumothorax. Right-sided portacatheter, nasogastric tube, endotracheal tube and l eft jugular central line in stable position. Osseous structures are intact. CONCLUSION: Right basilar pleural-parenchymal density likely pleural effusion and right basilar consolidation. Viral Frye MD on August 23, 2016 at 4:40 Board Certified Radiologist. This report was verified electronically.
[2016-08-23] MEDS: HEPARIN SODIUM - SQ 10,000 UNITS/ML VIAL SQ SCH ×3 (05:24→19:56)
[2016-08-23] MEDS: methylPREDNISolone SOD SUCC 125 MG/2 ML VIAL IVP SCH ×3 (05:24→19:55)
[2016-08-23] MEDS: PHENYTOIN INJ 100 MG/2 ML VIAL IV SCH ×3 (05:24→19:56)
[2016-08-23] MEDS: INSULIN ASPART SUPPLEMENTAL SCALE SQ SCH ×4 (05:35→18:26)
[2016-08-23 06:28] LABS: AUTOMATED NEUTROPHIL # 5.9 TH/MM3 (1.8-7.7); BASOPHIL % 0.2 % (0.0-2.0); EOSINOPHIL # 0.1 TH/MM3 (0-0.4); EOSINOPHIL % 0.7 % (0.0-4.0); HEMATOCRIT 28.7 % (39.0-51.0); HEMO FLAGS DIFF FINAL; LYMPH % 9.5 % (9.0-44.0); LYMPHOCYTE # 0.7 TH/MM3 (1.0-4.8); MEAN CELL VOLUME 93.2 FL (80.0-100.0); MEAN CORPUSCULAR HEMOGLOBIN 30.9 PG (27.0-34.0); MEAN CORPUSCULAR HGB CONC 33.1 % (32.0-36.0); MONO % 7.5 % (0.0-8.0); NEUT % 82.1 % (16.0-70.0); PLATELET COUNT 109 TH/MM3 (150-450); RED BLOOD COUNT 3.07 MIL/MM3 (4.50-5.90); RED CELL DISTRIBUTION WIDTH 14.5 % (11.6-17.2); WHITE BLOOD COUNT 7.1 TH/MM3 (4.0-11.0)
[2016-08-23 07:04] LABS: MAGNESIUM 2.5 MG/DL (1.5-2.5); POTASSIUM 4.4 MEQ/L (3.5-5.1)
[2016-08-23] MEDS: BUDESONIDE-FORMOTEROL 160/4.5 MCG INHALER INH SCH ×2 (08:17→19:51)
[2016-08-23] MEDS: ASPIRIN 81 MG CHEW TAB CHEW SCH (08:17)
[2016-08-23] MEDS: TIOTROPIUM BROMIDE 18 MCG INH INH SCH (08:17)
[2016-08-23] MEDS: CHLORHEXIDINE 0.12% (ORAL KIT) 15 ML CUP MT SCH ×2 (08:17→19:52)
[2016-08-23] MEDS: GABAPENTIN 100 MG CAP PO SCH ×3 (08:18→18:26)
[2016-08-23] MEDS: POLYETHYLENE GLYCOL 17 GM PKG PO SCH (08:18)
[2016-08-23] MEDS: ATORVASTATIN 20 MG TAB PO SCH (08:18)
[2016-08-23] MEDS: IMPLANTED VASCULAR ACCESS DEVICE/PORT - SODIUM CHLORIDE FLUSH IV FLUSH SCH (08:18)
[2016-08-23] MEDS: SENNOSIDES SYRUP 8.8 MG/5 ML CUP OG-TUBE SCH (08:18)
[2016-08-23] MEDS: SODIUM CHLORIDE 0.9% FLUSH 10 ML FLUSH IV FLUSH SCH ×2 (08:18→19:51)
--- NOTE | 2016-08-23 08:32 | PD.ONC.PN ---
Subjective Subjective Remarks Sedated on vent. Moving left arm. Objective Data Date Time Temp Pulse Resp B/P Pulse Ox O2 Delivery O2 Flow Rate FiO2 08/23/16 06:00 94/ 08/23/16 06:00 79 08/23/16 04:38 100 70 08/23/16 04:00 70 08/23/16 04:00 98.8 57 28 101/67 98 92/64 08/23/16 04:00 60 08/23/16 02:00 66 08/23/16 01:38 100 70 08/23/16 00:00 98.6 58 28 100/67 97 98/58 08/23/16 00:00 58 08/23/16 00:00 70 08/22/16 22:10 95 70 08/22/16 22:00 62 08/22/16 20:02 96 70 08/22/16 20:00 71 08/22/16 20:00 98.8 71 28 110/75 97 113/67 08/22/16 20:00 70 08/22/16 19:00 97 Mechanical Ventilator 70 08/22/16 18:02 65 97/60 08/22/16 18:00 63 08/22/16 16:47 98 75 08/22/16 16:00 98.8 08/22/16 16:00 80 08/22/16 16:00 60 08/22/16 16:00 60 28 97/63 98 107/62 08/22/16 14:00 59 08/22/16 13:48 97 80 08/22/16 12:00 98.9 62 28 104/67 92 100/96 08/22/16 12:00 100 08/22/16 12:00 62 08/22/16 11:30 98 100 08/22/16 10:00 65 08/23/16 08/23/16 08/23/16 07:00 15:00 23:00 Intake Total 1270 ml Output Total 640 ml Balance 630 ml Result Diagram: 08/23/1630 08/23/16 0530 Laboratory Results Laboratory Tests Test 08/22/16 08/22/16 08/23/16 08:42 20:35 05:30 Blood Gas Puncture Site ART LINE Blood Gas Patient Temperature 98.6 Blood Gas HCO3 30 mmol/L Blood Gas Base Excess 5.6 mmol/L Blood Gas Oxygen Saturation 93 % Arterial Blood pH 7.45 Arterial Blood Partial 44 mmHg Pressure CO2 Arterial Blood Partial 80 mmHg Pressure O2 Arterial Blood Oxygen Content 12.7 Vol % Arterial Blood 1.6 % Carboxyhemoglobin Arterial Blood Methemoglobin 1.1 % Blood Gas Hemoglobin 9.6 G/DL Oxygen Delivery Device VENTILATOR Blood Gas Ventilator Setting AC600/28/PEEP5 Blood Gas Inspired Oxygen 60 % Sodium Level 146 MEQ/L 146 MEQ/L Serum Osmolality 317 MOSM/KG White Blood Count 7.1 TH/MM3 Red Blood Count 3.07 MIL/MM3 Hemoglobin 9.5 GM/DL Hematocrit 28.7 % Mean Corpuscular Volume 93.2 FL Mean Corpuscular Hemoglobin 30.9 PG Mean Corpuscular Hemoglobin 33.1 % Concent Red Cell Distribution Width 14.5 % Platelet Count 109 TH/MM3 Mean Platelet Volume 9.1 FL Neutrophils (%) (Auto) 82.1 % Lymphocytes (%) (Auto) 9.5 % Monocytes (%) (Auto) 7.5 % Eosinophils (%) (Auto) 0.7 % Basophils (%) (Auto) 0.2 % Neutrophils # (Auto) 5.9 TH/MM3 Lymphocytes # (Auto) 0.7 TH/MM3 Monocytes # (Auto) 0.5 TH/MM3 Eosinophils # (Auto) 0.1 TH/MM3 Basophils # (Auto) 0.0 TH/MM3 CBC Comment DIFF FINAL Differential Comment Potassium Level 4.4 MEQ/L Chloride Level 109 MEQ/L Carbon Dioxide Level 33.0 MEQ/L Anion Gap 4 MEQ/L Blood Urea Nitrogen 29 MG/DL Creatinine 0.72 MG/DL Estimat Glomerular Filtration 116 ML/MIN Rate Random Glucose 123 MG/DL Calcium Level 7.6 MG/DL Phosphorus Level 3.5 MG/DL Magnesium Level 2.5 MG/DL Culture Results Microbiology Date/Time Procedure Status Source Growth 08/22/16 09:40 Aerobic Blood Culture Received Blood Peripheral Pending 08/22/16 09:40 Anaerobic Blood Culture Received Blood Peripheral Pending 08/22/16 09:49 Aerobic Blood Culture Received Blood Peripheral Pending 08/22/16 09:49 Anaerobic Blood Culture Received Blood Peripheral Pending Imaging Studies Last 24 hours Impressions Chest X-Ray 08/23/16 0600 Signed Impressions: Service Date/Time: Tuesday, August 23, 2016 03:20 - CONCLUSION: Right basilar pleural-parenchymal density likely pleural effusion and right basilar consolidation. Viral F. Tocci, MD Administered Medications Medications (Trade) Dose Ordered Sig/Beto Route PRN Reason Start Time Stop Time Status Last Admin Dose Admin Sodium Chloride (NS Flush) 2 ml UNSCH PRN IV FLUSH SEE COMMENTS 08/15/16 07:15 08/20/16 08:34 Sodium Chloride (NS Flush) 2 ml UNSCH PRN IV FLUSH FLUSH AFTER USING IV ACCESS 08/15/16 07:15 08/20/16 08:33 Sodium Chloride (NS Flush) 5 ml Q21D IV FLUSH 08/15/16 07:15 08/23/16 08:18 Sodium Chloride (NS Flush) 5 ml UNSCH PRN IV FLUSH SEE LABEL COMMENTS 08/15/16 07:15 08/20/16 08:34 Sodium Chloride (NS Flush) 2 ml BID IV FLUSH 08/15/16 21:00 08/23/16 08:18 Sodium Chloride (NS Flush) 2 ml UNSCH PRN IV FLUSH FLUSH AFTER USING IV ACCESS 08/15/16 12:15 08/20/16 08:33 Aripiprazole (Abilify) 15 mg HS PO 08/15/16 21:00 08/22/16 19:41 Budesonide/ Formoterol Fumarate (Symbicort 160-4.5 Inh) 2 puff Q12HR INH 08/15/16 21:00 08/20/16 19:41 Gabapentin (Neurontin) 100 mg TID PO 08/15/16 13:00 08/23/16 08:18 Trazodone HCl (Desyrel) 100 mg HS PO 08/15/16 21:00 Hold 08/18/16 19:33 Docusate Sodium (Colace) 100 mg BID PRN PO CONSTIPATION 08/15/16 12:15 08/20/16 13:14 Miscellaneous Information 1 Q361D XX 08/15/16 13:15 08/15/16 19:00 Chlorhexidine Gluconate Taper DAILY@04 TOP 08/16/16 04:00 08/12/17 03:59 08/20/16 02:00 Heparin Sodium/ Dextrose 250 ml @ 0 mls/hr TITRATE IV 08/15/16 13:15 Hold 08/15/16 15:22 Levofloxacin/ Dextrose (Levaquin 750 Mg Premix Inj) 150 ml @ 100 mls/hr Q24H IV 08/15/16 16:00 08/22/16 14:47 Hydralazine HCl (Apresoline Inj) 10 mg Q2HR PRN IV PUSH BP >150/90 08/15/16 16:00 08/16/16 04:36 Famotidine (Pepcid Inj) 20 mg Q12H IV PUSH 08/15/16 16:00 08/23/16 02:11 Phenytoin Sodium (Dilantin Inj) 100 mg Q8HR IV 08/16/16 14:00 08/23/16 05:24 Chlorhexidine Gluconate 15 ml 15 ml BID@08,20 MT 08/16/16 20:00 08/23/16 08:17 Propofol 100 ml @ 0 mls/hr TITRATE IV 08/16/16 15:30 08/23/16 06:50 Norepinephrine Bitartrate 250 ml @ 0 mls/hr TITRATE IV 08/16/16 15:30 08/18/16 14:43 Sodium Chloride 1,000 ml @ 20 mls/hr Q24H IV 08/16/16 15:30 08/23/16 02:11 Fentanyl Citrate (fentaNYL DRIP) 250 ml @ 0 mls/hr TITRATE IV 08/17/16 10:45 08/22/16 19:48 Insulin Aspart (NovoLOG SUPPLEMENTAL SCALE) 1 Q6HR SQ 08/17/16 12:00 08/19/16 05:10 Methylprednisolone Sodium Succinate (SoluMEDROL INJ) 60 mg Q8HR IVP 08/17/16 14:00 08/23/16 05:24 Aspirin 162 mg 162 mg DAILY CHEW 08/17/16 12:15 08/23/16 08:17 Sodium Chloride (Sodium Chloride 3% Inj) 500 ml @ 25 mls/hr Q20H IV 08/18/16 11:15 08/22/16 13:45 Sennosides (Senna Liq) 8.8 mg DAILY OG-TUBE 08/18/16 11:30 08/23/16 08:18 Heparin Sodium (Porcine) (Heparin Inj) 5,000 units Q8HR SQ 08/19/16 22:00 08/23/16 05:24 Atorvastatin Calcium (Lipitor) 20 mg DAILY PO 08/19/16 20:00 08/23/16 08:18 Polyethylene Glycol (Miralax) 17 gm DAILY PO 08/22/16 09:00 08/23/16 08:18 Objective Remarks GENERAL: Sedated on vent. SKIN: Warm and dry. HEAD: Normocephalic. EYES: No scleral icterus. No injection or drainage. NECK: Supple, trachea midline. No JVD or lymphadenopathy. LYMPHATIC: No adenopathy. CARDIOVASCULAR: Regular rate and rhythm without murmurs. RESPIRATORY: Breath sounds equal bilaterally. Vent assisted GASTROINTESTINAL: Abdomen soft, non-tender, nondistended. EXTREMITIES: No cyanosis, or edema. MUSCULOSKELETAL: Adequate muscle tone. 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 -- Right upper lobe lung mass measured 4.4 cm with mediastinal, right supraclavicular and right hilar adenopathy. --went to [facility] and had PET scan done which did not show any other distant metastasis. -- Based on the CT scan finding he is clinically stage IIIA. --No candidate for treatment at this time due to massive stroke. (2) Pulmonary embolism Status: Acute Plan: --no significant LE edema --has IVC filter. Not candidate for full anticoagulation at this time. --on heparin prophylaxis and antiplatelet therapy. --s/p IVC filter placement (3) Respiratory failure Status: Acute Plan: --on mechanical ventilation --developed a small pneumothorax after the biopsy. ++bilateral subsegmental pulmonary embolism. ++left lower extremity deep venous thrombosis dx more than a month ago (4) Stroke Status: Acute Plan: --CT 08/22 showed increased edema --ns following --Right hemiplegia Assessment 50y/o male with lung mass admitted with respiratory failure. History: (from original consult): had a port placement on Friday and reportedly doing well, yesterday when the he went for biopsy of lung mass. --was having shortness of breath after the biopsy and he was found to have pneumothorax and he developed worsening respiratory distress. --CT angiogram was done which showed bilateral subsegmental pulmonary embolism. --was admitted to the ICU. A chest tube was placed, reportedly in the evening he developed right-sided paralysis and was found to have a major stroke in the left hemisphere. h/o COPD, LLE DVT, osteopenia Plan 1. Head CT showed increased edema. Prognosis guarded. 2. Continue supportive care. Kris Murry MD August 23, 2016 08:32
[2016-08-23] MEDS: 3% SALINE INJ 500 ML IV SCH (10:22)
[2016-08-23] MEDS: fentaNYL DRIP 250 ML IV SCH ×2 (10:23→19:52)
[2016-08-23] MEDS ORDERED: ARTIFICIAL TEARS OPTH SOLN 15 ML BTL EACH EYE PRN (11:00)
--- NOTE | 2016-08-23 11:22 | HHI.CCPN ---
Subjective Remarks/Hospital Course 08/15: Mr. Cooley is a 50 y/o CM with a PMHx of COPD who continues to smoke and is s/p R lung biopsy secondary to a recently found lung mass presenting with dyspnea. Prior to his biopsy today, he was being treated as an outpatient with a Medrol dose pack with Levaquin for a COPD exacerbation. He endorsed dyspnea on exertion today, but denied any fevers, chest pain, wheezing, cough, or LE edema/tenderness. He has a history of LLE DVT diagnosed in 07/05, but has been off his anticoagulation for approximately 11 days (Previously on Xarelto). He had a port placed 2 days ago and lung biopsy today. He has been short of breath since 1 day prior to the procedure. After his biopsy, he was found to have a small apical pneumothorax on CXR, diaphoretic, and tachypneic with hypoxia of 81 % on room air. He was placed on 4L and improved to 85%. He was then placed on a non-rebreather and transferred to the ICU. On arrival he was tachypneic with oxygen saturation in the upper 80s. CTA showed acute pulmonary embolisms of the BL lower lobes with a small R pneumothorax. Therefore a R sided chest tube was placed and heparin drip without bolus was initiated. The patient has been continued on Levaquin ABX, has been give steroids with multiple breathing treatments, and has been placed on BiPAP. 08/16: Patient was noted to have an elevated troponin and was diagnosed to have a non-ST elevation OH last evening. He was on BiPAP at the time with full facemask. It was noticed that he was not moving the right side of his body when he was turned to administer rectal aspirin and subsequent head CT and CTA revealed significant edema in the left cerebral hemisphere and occluded left MCA with thrombus. Neurology was contacted by Dr. Martínez and due to concern for hemorrhagic transformation heparin was held. Dr. Martínez discussed the case with Dr. Okeefe from interventional radiology who did not feel that the patient was a good candidate for clot retrieval due to high risk for hemorrhagic transformation given the amount of cerebral edema and extent of infarct. Patient was given mannitol. This morning when I evaluated patient was in BiPAP with full facemask with a dense right hemiplegia with some spontaneous movement involving his left upper extremity. He was intubated and placed on mechanical ventilation for airway protection and hyperventilation in view of cerebral edema as well as for borderline respiratory status. Subsequently he underwent MRI brain which showed large left MCA territory infarct with some collateral flow. IVC filter was placed by interventional radiology after discussion with Dr. Murry, his oncologist as patient is now off heparin and is at risk for recurrent PE. 08/17: Remains sedated, orally intubated on mechanical ventilation. On 3% saline overnight. Head CT done this morning shows slight increase in cerebral edema in the area of left MCA territory infarct which appears more hypodense. Remains on Levophed 10mcg/min. Moves left side spontaneously however not following commands. Right hemiplegia persists 08/18: Remains sedated, orally intubated on mechanical ventilation. Remains on 3 % saline, Levophed. Awakens on lightening sedation and moves left side spontaneously. Right hemiplegia persists though manager shift RN noticed some flickering movement in his fingers on the right. 08/19: Remains sedated, orally intubated on mechanical ventilation. Off Levophed. Awakens on lightening sedation and moves left side spontaneously. Right hemiplegia persists. Tolerating tube feeds. Spiked temperatures overnight. Parr cultures ordered. Suspect central fever versus infection. On Levaquin currently. 08/20: Remains sedated, orally intubated on mechanical ventilation. Awakens on lightening sedation and moves left side spontaneously. Right hemiplegia persists. Tolerating tube feeds. 08/21: Sedated, arousable, orally intubated on mechanical ventilation. Right hemiplegia persists. Moving left side spontaneously. Tolerating tube feeds. Starting diuresis with Lasix in view of positive fluid balance to mobilize fluid. 08/22:TMax 101.0. Repeat cultures performed .Patient continues on 3% normal saline, CT brain pending this a.m.. Patient moving left upper and lower extremities, spontaneously. No vasopressors needed, hemodynamically stable. Continued right hemiplegia. Patient's at bedside, requesting patient be made DNR and this a.m.. 08/23: Tmax 98.8. CT brain performed yesterday revealed slight increase in cerebral edema with a 6 mm right to left midline shift. Repeat CT of brain scheduled for Friday. Extensive discussion with neurology Dr. Jean, palliative care team regarding the results, and decisions for goals of care. Continued right hemiplegia, with spontaneous movement of left upper and lower extremity. Objective Vital Signs Date Time Temp Pulse Resp B/P Pulse Ox O2 Delivery O2 Flow Rate FiO2 08/23/16 10:00 55 08/23/16 08:34 96 70 08/23/16 08:00 98.7 28 134/80 108/94 08/23/16 07:00 Mechanical Ventilator 15.00 Intake and Output 08/22/16 08/22/16 08/23/16 08:00 16:00 00:00 Intake Total 1267 ml 1359 ml 1139 ml Output Total 700.0 ml 620 ml 950 ml Balance 567.0 ml 739 ml 189 ml Result Diagram: 08/23/16 0530 08/23/16 0808 Imaging Last 24 hours Impressions Chest X-Ray 08/23/16 0600 Signed Impressions: Service Date/Time: Tuesday, August 23, 2016 03:20 - CONCLUSION: Right basilar pleural-parenchymal density likely pleural effusion and right basilar consolidation. Viral Frye MD Last Impressions Chest X-Ray 08/21/16 0000 Signed Impressions: Service Date/Time: Sunday, August 21, 2016 05:23 - CONCLUSION: 1. There is no evidence of pneumothorax. Israel Okeefe MD Head CT 08/20/16 1500 Signed Impressions: Service Date/Time: Saturday, August 20, 2016 16:25 - CONCLUSION: 1. No change in large nonhemorrhagic left MCA territory infarction with some mass effect as detailed above. Murphy Persaud Jr., MD Head CTA 08/16/16 0207 Signed Impressions: Service Date/Time: Tuesday, August 16, 2016 04:10 - CONCLUSION: Thrombosed left middle cerebral artery with associated large subacute cerebral infarct. Neftaly Holden MD Neck CTA 08/16/16 0000 Signed Impressions: Service Date/Time: Tuesday, August 16, 2016 04:10 - CONCLUSION: 1. Extracranial carotids are normal. Also normal vertebral arteries. 2. Known malignant right upper lobe mass. Mediastinal and hilar lymphadenopathy seen in the upper chest. Neftaly Holden MD IVC Filter Placement X-Ray 08/16/16 0000 Signed Impressions: Service Date/Time: Tuesday, August 16, 2016 10:30 - CONCLUSION: Uncomplicated inferior vena cava filter placement as above. Israel Okeefe MD Head Magnetic Resonance Angiography 08/16/16 0000 Signed Impressions: Service Date/Time: Tuesday, August 16, 2016 10:27 - CONCLUSION: Markedly abnormal cerebral perfusion corresponding to the large MCA occlusion on the left. Harshad Campbell MD FACR Brain MRI 08/16/16 0000 Signed Impressions: Service Date/Time: Tuesday, August 16, 2016 10:27 - CONCLUSION: Large area of infarction involving the left Sylvian region. There is occlusion of the distal left MCA. There is some collateralization distally. Harshad Campbell MD FACR Lung Biopsy CT 08/15/16 0000 Signed Impressions: Service Date/Time: July 08:22 - CONCLUSION: Uncomplicated CT guided biopsy of the right upper lobe lung mass. Neftaly Rodriguez MD CT Angiography 08/15/16 0000 Signed Impressions: Service Date/Time: July 13:22 - CONCLUSION: 1. There is acute appearing PE in the right lower lobe segmental and left lower lobe subsegmental pulmonary arteries. These PE are new since the prior CT from 07/09/2016. 2. Small right pneumothorax. 3. Right upper lobe pulmonary mass remains present and measures 4.9 cm. There is associated mediastinal, right hilar, and right supraclavicular lymphadenopathy suspicious for lymphatic spread of disease. Neftaly Rodriguez MD Last 48 hours Impressions Chest X-Ray 08/20/16 0600 Signed Impressions: Service Date/Time: Saturday, August 20, 2016 03:45 - CONCLUSION: 1. Improving diffuse right-sided opacity. There is no evidence of pneumothorax. Israel Okeefe MD Head CT 08/19/16 1500 Signed Impressions: Service Date/Time: Friday, August 19, 2016 16:04 - CONCLUSION: Stable brain appearance Neftaly Abad MD Last [address] 08/18/16 0800 Signed Impressions: Service Date/Time: Thursday, August 18, 2016 20:37 - CONCLUSION: Evolving left MCA stroke into an area of encephalomalacia involving the left frontal temporal and parietal lobes. Diane Guzman MD Chest X-Ray 08/18/16 0600 Signed Impressions: Service Date/Time: Thursday, August 18, 2016 03:13 - CONCLUSION: No perceptible pneumothorax. Otherwise no change. Neftaly Holden MD Last [address] 08/17/16 0800 Signed Impressions: Service Date/Time: Wednesday, August 17, 2016 08:23 - CONCLUSION: 1. Evolving left MCA infarct. Galindo Vuong MD Head CTA 08/16/16 0207 Signed Impressions: Service Date/Time: Tuesday, August 16, 2016 04:10 - CONCLUSION: Thrombosed left middle cerebral artery with associated large subacute cerebral infarct. Neftaly Holden MD Neck CTA 08/16/16 0000 Signed Impressions: Service Date/Time: Tuesday, August 16, 2016 04:10 - CONCLUSION: 1. Extracranial carotids are normal. Also normal vertebral arteries. 2. Known malignant right upper lobe mass. Mediastinal and hilar lymphadenopathy seen in the upper chest. Neftaly Holden MD IVC Filter Placement X-Ray 08/16/16 0000 Signed Impressions: Service Date/Time: Tuesday, August 16, 2016 10:30 - CONCLUSION: Uncomplicated inferior vena cava filter placement as above. Israel Okeefe MD Head Magnetic Resonance Angiography 08/16/16 0000 Signed Impressions: Service Date/Time: Tuesday, August 16, 2016 10:27 - CONCLUSION: Markedly abnormal cerebral perfusion corresponding to the large MCA occlusion on the left. Harshad Campbell MD FACR Head CT 08/16/16 0000 Signed Impressions: Service Date/Time: Tuesday, August 16, 2016 00:56 - CONCLUSION: Large left sided cerebral edema as above, appearance most typical of a subacute middle cerebral artery distribution infarct. No bleed or definite mass. Neftaly Holden MD Chest X-Ray 08/16/16 0000 Signed Impressions: Service Date/Time: Tuesday, August 16, 2016 15:33 - CONCLUSION: 1. Uncomplicated line placement. No evidence of pneumothorax. 2. Decreasing right apical pneumothorax Israel Okeefe MD Chest X-Ray 08/16/16 0000 Signed Impressions: Service Date/Time: Tuesday, August 16, 2016 08:15 - CONCLUSION: 1. Interval intubation. 2. Placement of nasogastric tube with the tip in the distal esophagus. This could be advanced at least 7 cm. 3. Mild interval increase in size the small right apical pneumothorax. 4. Increasing opacity in the right lung base most consistent with infiltrate. Barrett Holman MD Brain MRI 08/16/16 0000 Signed Impressions: Service Date/Time: Tuesday, August 16, 2016 10:27 - CONCLUSION: Large area of infarction involving the left Sylvian region. There is occlusion of the distal left MCA. There is some collateralization distally. Harshad Campbell MD FACR Chest X-Ray 08/15/16 1300 Signed Impressions: Service Date/Time: July 12:55 - CONCLUSION: Stable tiny right apical pneumothorax. Neftaly Rodriguez MD Chest X-Ray 08/15/16 1200 Signed Impressions: Service Date/Time: July 11:51 - CONCLUSION: There is a new tiny apical right pneumothorax. Neftaly Rodriguez MD Last 72 hours Impressions Chest X-Ray 08/15/16 1300 Signed Impressions: Service Date/Time: July 12:55 - CONCLUSION: Stable tiny right apical pneumothorax. Neftaly Rodriguez MD Chest X-Ray 08/15/16 1200 Signed Impressions: Service Date/Time: July 11:51 - CONCLUSION: There is a new tiny apical right pneumothorax. Neftaly Rodriguez MD Chest X-Ray 08/15/16 1030 Signed Impressions: Service Date/Time: July 10:20 - CONCLUSION: No pneumothorax following recent right lung biopsy. Neftaly Rodriguez MD Lung Biopsy CT 08/15/16 0000 Signed Impressions: Service Date/Time: July 08:22 - CONCLUSION: Uncomplicated CT guided biopsy of the right upper lobe lung mass. Neftaly Rodriguez MD Chest X-Ray 08/15/16 0000 Signed Impressions: Service Date/Time: July 07:12 - CONCLUSION: 1. No pneumothorax is visualized. Right chest wall [id number] distal tip is at the cavoatrial junction. 2. Right upper lobe pulmonary mass is again visualized. Neftaly Rodriguez MD CT Angiography 08/15/16 0000 Signed Impressions: Service Date/Time: July 13:22 - CONCLUSION: 1. There is acute appearing PE in the right lower lobe segmental and left lower lobe subsegmental pulmonary arteries. These PE are new since the prior CT from 07/09/2016. 2. Small right pneumothorax. 3. Right upper lobe pulmonary mass remains present and measures 4.9 cm. There is associated mediastinal, right hilar, and right supraclavicular lymphadenopathy suspicious for lymphatic spread of disease. Neftaly Rodriguez MD Objective Remarks Cardiac output 4.0 Propofol 50 mcgs Fentanyl 250 mcgs 3% normal saline 25cc/hr 0.9% normal saline at 20cc/hr GENERAL: Critical ill-appearing male, sedated and intubated SKIN: Warm and dry. HEAD: Atraumatic. Normocephalic. EYES: Pupils equal and round, reactive 3 mm . No scleral icterus. No injection or drainage. ENT: No nasal bleeding or discharge. Mucous membranes pink and moist. NECK: Trachea midline. No JVD. CARDIOVASCULAR: Normal rate, regular rhythm. S1-S2 RESPIRATORY: Mechanical ventilation .Right chest tube to waterseal , minimal serous drainage noted. No accessory muscle use. Clear to auscultation. Breath sounds equal bilaterally. [id number] noted right chest wall. GASTROINTESTINAL: Abdomen soft, non-tender, nondistended. Hypoactive bowel sounds. OGT infusing MUSCULOSKELETAL: Extremities without clubbing, cyanosis, or edema. No obvious deformities. NEUROLOGICAL: Intubated and sedated, RASS -2. Spontaneous movement of left upper and left lower extremities Date of Insertion: Aug 16, 2016 Line: Central Venous Catheter Side: Left Location: Jugular A/P Assessment and Plan Neuro: Left MCA territory ischemic infarct with cerebral edema with 6 mm midline shift Encephalopathy Bipolar Disorder with depression/anxiety Sedation with propofol/ fentanyl, daily sedation vacation. Neurochecks per protocol. Neurology, Dr. Jean following , Neurosurgery Dr. Wisdom signed off Continue 3% saline for cerebral edema, hold for serum osmolarity greater than 320. Continue 0.9% normal saline at 20 cc an hour Continue antiplatelet therapy with aspirin. Repeat head CT 08/20 shows some encephalomalacia in the site of left MCA territory infarct, cerebral edema persists. 08/22 CT brain -small increase in cerebral edema with 6 mm midline shift Follow up repeat CT brain schedule 08/24 Monitor neuro status with neuro checks per protocol CV: Hypotension-resolved Non-ST elevation OH History of HTN, CAD with OH s/p stent placement(2002) 08/16- 2-D echo with no evidence of R heart strain. Difficult study due to tachycardia. EF 35-40%. Moderate mid to distal inferior hypokinesis and distal lateral hypokinesis. Trace tricuspid regurgitation. PA peak pressure 53 mmHg. Elevated cardiac enzymes/ EKG consistent with non-ST elevation OH. On aspirin 162mg daily. Cardiology following- Dr. May Off Levophed 07/21. Hold all antihypertensives. KVO IV fluids. We will consider adding low-dose beta camila if no further hypotension. Started lipitor 20 mg by mouth daily (08/19). Initiated diuresis with Lasix and 08/21 to mobilize fluid Pulm: Right pneumothorax(resolved) BL PEs on CTA COPD Exacerbation R Lung mass s/p biopsy-poorly differentiated adenocarcinoma R sided chest tube to waterseal Continue mechanical ventilation. Vent bundle, bronchodilators Solumedrol 60mg Q12H Right sided chest tube in place, no air leak noted. End-tidal CO2 monitoring, attempt keeping PCO2 30-35mm Hg Hold C Pap trials till cerebral edema decreases for the next few days. CTA-segmental or subsegmental PTE in the right lower lobe, subsegmental PE left lower lobe, right upper lobe mass 4.9 cm associated with mediastinal, right hilar, right supraclavicular lymphadenopathy suspicious for spread of disease. Renal/: KVO IVF as patient with decreased EF. Starting diuresis with Lasix on 08/21 as patient has been off Levophed for a few days now. Strict intake output, monitor and replete electrolytes, follow BUN/ creatinine. ID: Continue with empiric abx (Levaquin). sputum cultures and blood cultures repeated on 08/19 for fevers which may be central versus related to infection though patient does not have leukocytosis. Legionella and Streptococcus urinary antigens negative. Tylenol for temperature greater than 101.0 08/19 urine culture- NGTD 08/19 blood culture- NGTD Heme-onc: DVT/PE/right apical lung mass - poorly differentiated adenocarcinoma on pathology Off anticoagulation with heparin due to large stroke with risk for hemorrhagic transformation. IVC filter placed . Continue aspirin. Started subcutaneous heparin on 08/17 after clearing with neurosurgery. Monitor CBC. Thrombocytopenia noted, being followed by Dr. Murry from Oncology. Will need full anticoagulation when okay with neurosurgery for DVT/ PE. Endocrine: Hx of DM per chart review, not on medications at home SSI per protocol GI: Continue tube feeds with Glucerna. Prophylaxis with Pepcid BID No BM since admission- MiraLAX added to bowel regimen DVT prophylaxis: SCDs. SQ heparin Discussed with RETORT OR CONDENSER PRESS OPERATOR at bedside. 08/23 Palliative care met with family yesterday. Dr. Jean met with family yesterday. Extensive discussion regarding results of CT of the brain, and goals of care. Family understands the poor prognosis and will make decisions regarding tracheostomy and PEG placement next week. This patient remains critically ill with one or more organ systems which are or may become a threat to life. I have spent in excess of 39 minutes discontinuously in the care and management of this patient. This time is exclusive of procedures, and includes, but is not limited to, evaluation of the patient, review of the medical record, discussions with family, consultants, nursing staff, or respiratory therapy, and documentation in the medical record. Physician Fadumo Richard MD August 23, 2016 11:22
--- NOTE | 2016-08-23 11:39 | HHI.HCPN ---
Reason for visit a. To assist with evaluation and management of symptoms including: Dyspnea, pain b. To assist medical decision maker(s) with: better understanding of current medical conditions; weighing benefits/burdens of medical treatment options; making medical treatment decisions. (XIANG CUBA) Subjective/Interval History Patient seen and examined in ICU. No family at bedside. Discussed with nurse and Dr. Atkinson. 08/20/16 - repeat CT head with no change in large nonhemorrhagic left MCA infarction with some mass effect, no midline shift. Remains on [facility] vent, FiO2 70%. Sedated on Diprivan, Fentanyl. Afebrile. Vital signs stable. Tolerating tube feeding. Chest tube in place in right. Oncology, Dr. Murry spoke with family regarding poor prognosis, family hopeful he will wake up and go home. Note indicates fmaily understands patient is not a candidate for chemo/radiation and that cancer will continue to progress. Neurosurgery, Dr. Wisdom has signed off as no indication for surgical intervention anticipated. Cardiology, Dr. May recommends continuation of ASA and statin, full anticoagulation is contraindicated due to large stroke, stable after ME. Neurology, Dr. Jean indicates prognosis guarded. Son will need to hear prognosis from neurology. . Family/friend interactions No questions or concerns from family today. . (XIANG CUBA) Advance Directives Living Will: Never completed Health Care Surrogate: Never completed Durable Power of Horse Racing Analyst: Never completed (XIANG CUBA) Advance Directive Specifics Health Care Surrogate(s): Spouse, Erika Cooley, Significant change in goals: NO CODE. Continue aggressive care for now, family understands trach and PEG decisions anticipated next week. . (XIANG CUBA) Objective Vital Signs Date Time Temp Pulse Resp B/P Pulse Ox O2 Delivery O2 Flow Rate FiO2 08/23/16 10:00 55 08/23/16 08:34 96 70 08/23/16 08:00 98.7 70 28 134/80 96 108/94 08/23/16 08:00 70 08/23/16 08:00 70 08/23/16 07:00 Mechanical Ventilator 15.00 70 08/23/16 07:00 71 28 134/71 98 08/23/16 06:00 94/ 08/23/16 06:00 79 08/23/16 04:38 100 70 08/23/16 04:00 70 08/23/16 04:00 98.8 57 28 101/67 98 92/64 08/23/16 04:00 60 08/23/16 02:00 66 08/23/16 01:38 100 70 08/23/16 00:00 98.6 58 28 100/67 97 98/58 08/23/16 00:00 58 08/23/16 00:00 70 08/22/16 22:10 95 70 08/22/16 22:00 62 08/22/16 20:02 96 70 08/22/16 20:00 71 08/22/16 20:00 98.8 71 28 110/75 97 113/67 08/22/16 20:00 70 08/22/16 19:00 97 Mechanical Ventilator 70 08/22/16 18:02 65 97/60 08/22/16 18:00 63 08/22/16 16:47 98 75 08/22/16 16:00 98.8 08/22/16 16:00 80 08/22/16 16:00 60 08/22/16 16:00 60 28 97/63 98 107/62 08/22/16 14:00 59 08/22/16 13:48 97 80 08/22/16 12:00 98.9 62 28 104/67 92 100/96 08/22/16 12:00 100 08/22/16 12:00 62 08/22/16 11:30 98 100 Intake & Output 08/23/16 08/23/16 07:00 19:00 Intake Total 2409 ml Output Total 1590 ml Balance 819 ml IV Total 1065 ml Tube Feeding 1104 ml Other 240 ml Output Urine Total 1300 ml Tube Feeding Residual Discard 0 ml Chest Tube Drainage Total 290 ml # Bowel Movements 1 Physical Exam CONSTITUTIONAL/GENERAL: This is middle aged, critically ill male, sedated on the ventilator TUBES/LINES/DRAINS: ETT, OG, Simon catheter, right chest tube,right chest port , Simon. SKIN: No jaundice, rashes, or lesions. Ecchymoses on upper extremities. No wounds seen anteriorly. Skin temperature appropriate. Not diaphoretic. EYES: eyes closed. CARDIOVASCULAR: Regular rate and rhythm without murmurs, gallops, or rubs. RESPIRATORY/CHEST: Right chest tube, Symmetric, unlabored respirations on vent. Scattered course breath sounds. GASTROINTESTINAL: Abdomen soft, nondistended. Bowel sounds hypoactive. GENITOURINARY: Without palpable bladder distension. Simon catheter in place. MUSCULOSKELETAL: Extremities with trace edema. No mottling or clubbing. Right hemiplegia. NEUROLOGICAL: Sedated on mech vent. PSYCHIATRIC: Sedated. . (XIANG CUBA) Diagnostic Tests Laboratory Laboratory Tests Test 08/20/16 08/20/16 08/20/16 08/21/16 12:45 18:15 21:40 00:10 Sodium Level 149 MEQ/L 150 MEQ/L 149 MEQ/L (136-145) (136-145) (136-145) Serum Osmolality 317 MOSM/KG 316 MOSM/KG 315 MOSM/KG (275-295) (275-295) (275-295) Protein S Activity 181 % (65 - 160) Blood Gas Puncture Site ART LINE Blood Gas Patient Temperature 98.6 Blood Gas HCO3 30 mmol/L (22-26) Blood Gas Base Excess 5.3 mmol/L (-2-2) Blood Gas Oxygen Saturation 94 % (90-100) Arterial Blood pH 7.41 (7.380-7.420) Arterial Blood Partial 47 mmHg (38-42) Pressure CO2 Arterial Blood Partial 84 mmHg Pressure O2 (61-120) Arterial Blood Oxygen Content 12.5 Vol % (12.0-20.0) Arterial Blood 1.5 % (0-4) Carboxyhemoglobin Arterial Blood Methemoglobin 1.1 % (0-2) Blood Gas Hemoglobin 9.4 G/DL (12.0-16.0) Oxygen Delivery Device VENTILATOR Blood Gas Ventilator Setting AC/28/550/PEEP 5 Blood Gas Inspired Oxygen 60 % Test 08/21/16 08/21/16 08/21/16 08/21/16 05:00 05:20 12:00 18:56 Blood Gas Puncture Site ART LINE Blood Gas Patient Temperature 98.6 Blood Gas HCO3 30 mmol/L (22-26) Blood Gas Base Excess 5.2 mmol/L (-2-2) Blood Gas Oxygen Saturation 92 % (90-100) Arterial Blood pH 7.42 (7.380-7.420) Arterial Blood Partial 46 mmHg (38-42) Pressure CO2 Arterial Blood Partial 71 mmHg Pressure O2 (61-120) Arterial Blood Oxygen Content 12.6 Vol % (12.0-20.0) Arterial Blood 1.5 % (0-4) Carboxyhemoglobin Arterial Blood Methemoglobin 1.2 % (0-2) Blood Gas Hemoglobin 9.7 G/DL (12.0-16.0) Oxygen Delivery Device VENTILATOR Blood Gas Ventilator Setting AC/28/600/PEEP 5 Blood Gas Inspired Oxygen 60 % White Blood Count 8.5 TH/MM3 (4.0-11.0) Red Blood Count 3.16 MIL/MM3 (4.50-5.90) Hemoglobin 9.8 GM/DL (13.0-17.0) Hematocrit 28.9 % (39.0-51.0) Mean Corpuscular Volume 91.7 FL (80.0-100.0) Mean Corpuscular Hemoglobin 31.2 PG (27.0-34.0) Mean Corpuscular Hemoglobin 34.0 % Concent (32.0-36.0) Red Cell Distribution Width 14.1 % (11.6-17.2) Platelet Count 108 TH/MM3 (150-450) Mean Platelet Volume 8.9 FL (7.0-11.0) Sodium Level 149 MEQ/L 148 MEQ/L 146 MEQ/L (136-145) (136-145) (136-145) Serum Osmolality 316 MOSM/KG (275-295) B-Type Natriuretic Peptide 1437 PG/ML (0-100) Potassium Level 4.3 MEQ/L (3.5-5.1) Chloride Level 106 MEQ/L (98-107) Carbon Dioxide Level 35.7 MEQ/L (21.0-32.0) Anion Gap 4 MEQ/L (5-15) Blood Urea Nitrogen 29 MG/DL (7-18) Creatinine 0.95 MG/DL (0.60-1.30) Estimat Glomerular Filtration 84 ML/MIN (>89) Rate Random Glucose 137 MG/DL (74-106) Calcium Level 7.7 MG/DL (8.5-10.1) Total Bilirubin 0.2 MG/DL (0.2-1.0) Aspartate Amino Transf 26 U/L (15-37) (AST/SGOT) Alanine Aminotransferase 28 U/L (12-78) (ALT/SGPT) Alkaline Phosphatase 49 U/L (45-117) Total Protein 5.5 GM/DL (6.4-8.2) Albumin 2.2 GM/DL (3.4-5.0) Phenytoin (Dilantin) Level 5.1 MCG/ML (10.0-20.0) Test 08/22/16 08/22/16 08/22/16 08/22/16 01:00 05:00 08:00 08:42 Sodium Level 147 MEQ/L 148 MEQ/L 148 MEQ/L (136-145) (136-145) (136-145) White Blood Count 8.8 TH/MM3 (4.0-11.0) Red Blood Count 3.16 MIL/MM3 (4.50-5.90) Hemoglobin 9.7 GM/DL (13.0-17.0) Hematocrit 29.4 % (39.0-51.0) Mean Corpuscular Volume 93.1 FL (80.0-100.0) Mean Corpuscular Hemoglobin 30.9 PG (27.0-34.0) Mean Corpuscular Hemoglobin 33.2 % Concent (32.0-36.0) Red Cell Distribution Width 14.2 % (11.6-17.2) Platelet Count 116 TH/MM3 (150-450) Mean Platelet Volume 9.0 FL (7.0-11.0) Neutrophils (%) (Auto) 83.2 % (16.0-70.0) Lymphocytes (%) (Auto) 9.3 % (9.0-44.0) Monocytes (%) (Auto) 6.9 % (0.0-8.0) Eosinophils (%) (Auto) 0.5 % (0.0-4.0) Basophils (%) (Auto) 0.1 % (0.0-2.0) Neutrophils # (Auto) 7.3 TH/MM3 (1.8-7.7) Lymphocytes # (Auto) 0.8 TH/MM3 (1.0-4.8) Monocytes # (Auto) 0.6 TH/MM3 (0-0.9) Eosinophils # (Auto) 0.0 TH/MM3 (0-0.4) Basophils # (Auto) 0.0 TH/MM3 (0-0.2) CBC Comment DIFF FINAL Differential Comment Potassium Level 4.4 MEQ/L (3.5-5.1) Chloride Level 108 MEQ/L (98-107) Carbon Dioxide Level 34.4 MEQ/L (21.0-32.0) Anion Gap 6 MEQ/L (5-15) Blood Urea Nitrogen 29 MG/DL (7-18) Creatinine 0.89 MG/DL (0.60-1.30) Estimat Glomerular Filtration 90 ML/MIN (>89) Rate Random Glucose 114 MG/DL (74-106) Calcium Level 7.7 MG/DL (8.5-10.1) Total Bilirubin 0.2 MG/DL (0.2-1.0) Aspartate Amino Transf 24 U/L (15-37) (AST/SGOT) Alanine Aminotransferase 30 U/L (12-78) (ALT/SGPT) Alkaline Phosphatase 49 U/L (45-117) Total Protein 5.1 GM/DL (6.4-8.2) Albumin 2.0 GM/DL (3.4-5.0) Serum Osmolality 317 MOSM/KG (275-295) Phosphorus Level 3.1 MG/DL (2.5-4.9) Magnesium Level 2.6 MG/DL (1.5-2.5) Blood Gas Puncture Site ART LINE Blood Gas Patient Temperature 98.6 Blood Gas HCO3 30 mmol/L (22-26) Blood Gas Base Excess 5.6 mmol/L (-2-2) Blood Gas Oxygen Saturation 93 % (90-100) Arterial Blood pH 7.45 (7.380-7.420) Arterial Blood Partial 44 mmHg (38-42) Pressure CO2 Arterial Blood Partial 80 mmHg Pressure O2 (61-120) Arterial Blood Oxygen Content 12.7 Vol % (12.0-20.0) Arterial Blood 1.6 % (0-4) Carboxyhemoglobin Arterial Blood Methemoglobin 1.1 % (0-2) Blood Gas Hemoglobin 9.6 G/DL (12.0-16.0) Oxygen Delivery Device VENTILATOR Blood Gas Ventilator Setting AC600/28/PEEP5 Blood Gas Inspired Oxygen 60 % Test 08/22/16 08/23/16 08/23/16 20:35 05:30 08:08 Sodium Level 146 MEQ/L 146 MEQ/L 146 MEQ/L (136-145) (136-145) (136-145) Serum Osmolality 317 MOSM/KG 317 MOSM/KG (275-295) (275-295) White Blood Count 7.1 TH/MM3 (4.0-11.0) Red Blood Count 3.07 MIL/MM3 (4.50-5.90) Hemoglobin 9.5 GM/DL (13.0-17.0) Hematocrit 28.7 % (39.0-51.0) Mean Corpuscular Volume 93.2 FL (80.0-100.0) Mean Corpuscular Hemoglobin 30.9 PG (27.0-34.0) Mean Corpuscular Hemoglobin 33.1 % Concent (32.0-36.0) Red Cell Distribution Width 14.5 % (11.6-17.2) Platelet Count 109 TH/MM3 (150-450) Mean Platelet Volume 9.1 FL (7.0-11.0) Neutrophils (%) (Auto) 82.1 % (16.0-70.0) Lymphocytes (%) (Auto) 9.5 % (9.0-44.0) Monocytes (%) (Auto) 7.5 % (0.0-8.0) Eosinophils (%) (Auto) 0.7 % (0.0-4.0) Basophils (%) (Auto) 0.2 % (0.0-2.0) Neutrophils # (Auto) 5.9 TH/MM3 (1.8-7.7) Lymphocytes # (Auto) 0.7 TH/MM3 (1.0-4.8) Monocytes # (Auto) 0.5 TH/MM3 (0-0.9) Eosinophils # (Auto) 0.1 TH/MM3 (0-0.4) Basophils # (Auto) 0.0 TH/MM3 (0-0.2) CBC Comment DIFF FINAL Differential Comment Potassium Level 4.4 MEQ/L (3.5-5.1) Chloride Level 109 MEQ/L (98-107) Carbon Dioxide Level 33.0 MEQ/L (21.0-32.0) Anion Gap 4 MEQ/L (5-15) Blood Urea Nitrogen 29 MG/DL (7-18) Creatinine 0.72 MG/DL (0.60-1.30) Estimat Glomerular Filtration 116 ML/MIN Rate (>89) Random Glucose 123 MG/DL (74-106) Calcium Level 7.6 MG/DL (8.5-10.1) Phosphorus Level 3.5 MG/DL (2.5-4.9) Magnesium Level 2.5 MG/DL (1.5-2.5) (ROSA ELENAXIANGKAYLIN ARGUELLES) Result Diagram: 08/23/16 0530 08/23/16 0808 Microbiology Microbiology Date/Time Procedure Status Source Growth 08/22/16 09:40 Aerobic Blood Culture - Preliminary Resulted Blood Peripheral NO GROWTH IN 1 DAY 08/22/16 09:40 Anaerobic Blood Culture - Preliminary Resulted Blood Peripheral NO GROWTH IN 1 DAY 08/22/16 09:49 Aerobic Blood Culture - Preliminary Resulted Blood Peripheral NO GROWTH IN 1 DAY 08/22/16 09:49 Anaerobic Blood Culture - Preliminary Resulted Blood Peripheral NO GROWTH IN 1 DAY Imaging Last Impressions Chest X-Ray 08/23/16 0600 Signed Impressions: Service Date/Time: Tuesday, August 23, 2016 03:20 - CONCLUSION: Right basilar pleural-parenchymal density likely pleural effusion and right basilar consolidation. Viral Frye MD Head CT 08/22/16 0600 Signed Impressions: Service Date/Time: August 11:25 - CONCLUSION: 1. Large infarct involving the left hemisphere with 6 mm of [id number] falcine shift. No significant hemorrhage is seen within this. The amount of edema associate with this has mildly increased since previous of 08/20/16 Vitor Campbell MD Head CTA 08/16/16 0207 Signed Impressions: Service Date/Time: Tuesday, August 16, 2016 04:10 - CONCLUSION: Thrombosed left middle cerebral artery with associated large subacute cerebral infarct. Neftaly Holden MD Neck CTA 08/16/16 0000 Signed Impressions: Service Date/Time: Tuesday, August 16, 2016 04:10 - CONCLUSION: 1. Extracranial carotids are normal. Also normal vertebral arteries. 2. Known malignant right upper lobe mass. Mediastinal and hilar lymphadenopathy seen in the upper chest. Neftaly Holden MD IVC Filter Placement X-Ray 08/16/16 0000 Signed Impressions: Service Date/Time: Tuesday, August 16, 2016 10:30 - CONCLUSION: Uncomplicated inferior vena cava filter placement as above. Israel Okeefe MD Head Magnetic Resonance Angiography 08/16/16 0000 Signed Impressions: Service Date/Time: Tuesday, August 16, 2016 10:27 - CONCLUSION: Markedly abnormal cerebral perfusion corresponding to the large MCA occlusion on the left. Harshad Campbell MD FACR Brain MRI 08/16/16 0000 Signed Impressions: Service Date/Time: Tuesday, August 16, 2016 10:27 - CONCLUSION: Large area of infarction involving the left Sylvian region. There is occlusion of the distal left MCA. There is some collateralization distally. Harshad Campbell MD FACR Lung Biopsy CT 08/15/16 0000 Signed Impressions: Service Date/Time: July 08:22 - CONCLUSION: Uncomplicated CT guided biopsy of the right upper lobe lung mass. Neftaly Rodriguez MD CT Angiography 08/15/16 0000 Signed Impressions: Service Date/Time: July 13:22 - CONCLUSION: 1. There is acute appearing PE in the right lower lobe segmental and left lower lobe subsegmental pulmonary arteries. These PE are new since the prior CT from 07/09/2016. 2. Small right pneumothorax. 3. Right upper lobe pulmonary mass remains present and measures 4.9 cm. There is associated mediastinal, right hilar, and right supraclavicular lymphadenopathy suspicious for lymphatic spread of disease. Neftaly Rodriguez MD . Procedures 08/16/16 IVC filter 08/15/16 intubated 08/15/16 chest tube (XIANG CUBA-Eliecer) Assessment and Plan Disease Oriented Problem List: (1) Respiratory failure Comment: secondary to Pulmonary embolism (2) Lung cancer Comment: Invasisve Adenocarcinoma - primary lung - not a candidate for treatment at this time (3) Stroke (4) Pulmonary embolism (5) DVT (deep venous thrombosis) Comment: not a candidate for anticoagulation due to nature of brain injury (6) Non-STEMI (non-ST elevated myocardial infarction) Symptom Scale: (1) Pain 0-10 Scale: Unable to quantify Comment: secondary to malignancy, recent MCA ischemic infarct, pneumothorax post chest tube, intubation, DVT/PE, bedbound status, etc. On Fentanyl and Diprivan. . (2) Dyspnea 0-10 Scale: Unable to quantify Comment: Lung ca, PE and Pneumothorax - w hx of COPD, remains on vent. Pertinent Non-Medical Issues Psychosocial: . Has a son, Neftaly and daughter. Spiritual: Evangelical Legal: Patient incapacitated to make his health care decisions, uncertain if he will regain capacity given Left MCA infarct. According to [place] statutes, health care proxy decision making falls to his spouse. Ethical issues impacting care: No known concerns at this time. . Important Contacts * Erika Chávez, / HCP, * Neftaly Chávez, son, Prognosis Prognosis is extremely poor in light of malignancy (not a candidate for chemo or radiation), large left MCA stroke, recent ME, recent PE, recent DVT, unable to be on anticoagulation due to the nature of hemorrhage in the brain and high risk for further embolic events. . Code Status: No Code Plan * Decision Maker: Patient incapacitated to make his health care decisions, unlikely to regain capacity given Left MCA infarct. According to [place] statutes, health care proxy decision making falls to his spouse. * NO CODE * 08/22/16 - Met with , son and step-daughter at bedside. Reviewed CT head results with large infarct left increased edema and 6mm shift. Again reviewed overall poor prognosis given underlying malignancy, ME, large left MCA infarct, PE etc. and daughter seem to be leaning toward transition to comfort (not quite there yet) and son is struggling with "giving up too soon." Family understands possible trach/PEG decisions likely next week. indicates "no more surgeries." We agreed to meet with family for any major decisions. Daughter later asking questions about transition to comfort and withdrawal of life support, she indicates she is worried about her brother. * Family would like to speak with Dr. Jean to determine plan of care, options, wondering if daily CTs will be done and prognosis. Nurse will notify Dr. Jean that family would like to speak with him. Family appreciates time spent. * SYMPTOMS: Dyspnea: secondary to malignancy, PE, COPD, etc. remains on mech vent. Pain: likely secondary to malignancy, recent MCA ischemic infarct, pneumothorax post chest tube, intubation, DVT/PE, bedbound status, etc. On Fentanyl and Diprivan. No new medication recommendations at this time. * Palliative care will continue to follow to assist with symptom management and clarification of treatment goals as needed. . (XIANG CUBA) Attestation To help prompt me to consider important information that might be impacting today's encounter and assessment, information from prior notes written by myself or my colleagues may have been "brought forward" into today's note. My signature on this note, however, is an attestation that I personally performed the exam, history, and/or decision-making noted today, and, unless otherwise indicated, the interactions with patient, family, and staff as well as the review of records all occurred today. I also attest that the listed assessment and stated plan reflect my best clinical judgment today based on the combination of historical information, prior notes, and today's exam/ interactions. When time spent is documented, it refers only to time spent today by the signer, or if indicated, combined time spent today by collaborating physician/nurse practitioner. (XIANG CUBA) Collaborating MD Comments . Chart reviewed. Cased discussed with palliative care ALARM SERVICE TECHNICIAN. Above ALARM SERVICE TECHNICIAN note reviewed and I concur. . (Santiago Iverson MD) XIANG CUBA August 23, 2016 11:39 Santiago Iverson MD September 16, 2016 15:39
[2016-08-23] MEDS: FUROSEMIDE 20 MG/2 ML VIAL IV PUSH SCH (11:46)
[2016-08-23] MEDS: LEVOFLOXACIN 750 MG PREMIX INJ 150 ML IV SCH (16:27)
--- NOTE | 2016-08-23 18:58 | HHI.PR ---
Review/Management Diagnosis left MCA stroke--prognosis guarded. Plan Repeat CT brain on Friday to follow up. Diagnosis/Plan: Subjective Subjective Comments No acute events reported Active Medications Current Medications Medications (Trade) Dose Ordered Sig/Beto Route Start Time Stop Time Status Last Admin (NS Flush) 2 ml UNSCH PRN IV FLUSH 08/15/16 07:15 08/20/16 08:34 (NS Flush) 2 ml UNSCH PRN IV FLUSH 08/15/16 07:15 08/20/16 08:33 (NS Flush) 5 ml Q21D IV FLUSH 08/15/16 07:15 08/23/16 08:18 (Heparin Central Flush) 500 units Q21D IV FLUSH 08/15/16 07:15 (NS Flush) 5 ml UNSCH PRN IV FLUSH 08/15/16 07:15 08/20/16 08:34 (Heparin Central Flush) 250 units UNSCH PRN IV FLUSH 08/15/16 07:15 (NS Flush) 2 ml BID IV FLUSH 08/15/16 21:00 08/23/16 08:18 (NS Flush) 2 ml UNSCH PRN IV FLUSH 08/15/16 12:15 08/20/16 08:33 (Xanax) 0.25 mg Q8H PRN PO 08/15/16 12:15 (Abilify) 15 mg HS PO 08/15/16 21:00 08/22/16 19:41 (Symbicort 160-4.5 Inh) 2 puff Q12HR INH 08/15/16 21:00 08/20/16 19:41 (Neurontin) 100 mg TID PO 08/15/16 13:00 08/23/16 18:26 (Semmes 10-325 Mg) 1 tab Q4H PRN PO 08/15/16 12:15 (Spiriva Inh) 18 mcg DAILY INH 08/16/16 09:00 (Desyrel) 100 mg HS PO 08/15/16 21:00 Hold 08/18/16 19:33 (PROzac) 60 mg DAILY PO 08/16/16 09:00 Hold (Zofran Inj) 4 mg Q6H PRN IV 08/15/16 12:15 (Colace) 100 mg BID PRN PO 08/15/16 12:15 08/20/16 13:14 (Mag-Al Plus Susp Liq) 30 ml Q6H PRN PO 08/15/16 12:15 (Tums Chew) 1,000 mg TID PRN CHEW 08/15/16 12:15 Miscellaneous Information 1 Q361D XX 08/15/16 13:15 08/15/16 19:00 (Chlorhexidine 2% Cloth) Taper DAILY@04 TOP 08/16/16 04:00 08/12/17 03:59 08/20/16 02:00 (Chlorhexidine 2% Cloth) 3 pack UNSCH PRN TOP 08/15/16 13:15 (Heparin Inj) 5,000 units UNSCH PRN IV 08/15/16 19:15 Hold Heparin Sodium (Porcine) 2500 units 2,500 units UNSCH PRN IV 08/15/16 19:15 Hold Heparin Sodium/ Dextrose 250 ml @ 0 mls/hr TITRATE IV 08/15/16 13:15 Hold 08/15/16 15:22 (Levaquin 750 Mg Premix Inj) 150 ml @ 100 mls/hr Q24H IV 08/15/16 16:00 08/23/16 16:27 (Apresoline Inj) 10 mg Q2HR PRN IV PUSH 08/15/16 16:00 08/16/16 04:36 (Pepcid Inj) 20 mg Q12H IV PUSH 08/15/16 16:00 08/23/16 16:27 (D50w (Vial) Inj) 25 ml UNSCH PRN IV PUSH 08/15/16 17:30 (Glucagon Inj) 1 mg UNSCH PRN OTHER 08/15/16 17:30 (Dilantin Inj) 100 mg Q8HR IV 08/16/16 14:00 08/23/16 13:27 Chlorhexidine Gluconate 15 ml 15 ml BID@08,20 MT 08/16/16 20:00 08/23/16 08:17 Propofol 100 ml @ 0 mls/hr TITRATE IV 08/16/16 15:30 08/23/16 16:27 (Levophed-Dextrose Drip) 250 ml @ 0 mls/hr TITRATE IV 08/16/16 15:30 08/18/16 14:43 Terbutaline Sulfate 1 mg 1 mg UNSCH PRN SQ 08/16/16 15:15 Sodium Chloride 1,000 ml @ 20 mls/hr Q24H IV 08/16/16 15:30 08/23/16 02:11 (fentaNYL DRIP) 250 ml @ 0 mls/hr TITRATE IV 08/17/16 10:45 08/23/16 10:23 (NovoLOG SUPPLEMENTAL SCALE) 1 Q6HR SQ 08/17/16 12:00 08/23/16 18:26 (SoluMEDROL INJ) 60 mg Q8HR IVP 08/17/16 14:00 08/23/16 13:28 Aspirin 162 mg 162 mg DAILY CHEW 08/17/16 12:15 08/23/16 08:17 (Sodium Chloride 3% Inj) 500 ml @ 25 mls/hr Q20H IV 08/18/16 11:15 08/23/16 10:22 (Senna Liq) 8.8 mg DAILY OG-TUBE 08/18/16 11:30 08/23/16 08:18 (Heparin Inj) 5,000 units Q8HR SQ 08/19/16 22:00 08/23/16 13:27 (Lipitor) 20 mg DAILY PO 08/19/16 20:00 08/23/16 08:18 (Miralax) 17 gm DAILY PO 08/22/16 09:00 08/23/16 08:18 (Tylenol 650 Mg/ 20 ml Liq) 650 mg Q6H PRN PO 08/22/16 08:00 (Tears Naturale Opth Soln) 1 drop Q4H PRN EACH EYE 08/23/16 11:00 (Lasix Inj) 20 mg DAILY IV PUSH 08/23/16 11:30 08/23/16 11:46 Allergies Allergies Coded Allergies No Known Allergies (Unverified07/09/16) Exam I&O / VS 08/22/16 08/22/16 08/23/16 15:00 23:00 07:00 Intake Total 1359 ml 1139 ml 1270 ml Output Total 620 ml 950 ml 640 ml Balance 739 ml 189 ml 630 ml IV Total 958 ml 453 ml 612 ml Tube Feeding 401 ml 566 ml 538 ml Other 120 ml 120 ml Output Urine Total 450 ml 700 ml 600 ml Tube Feeding Residual Discard 0 ml 0 ml Chest Tube Drainage Total 170 ml 250 ml 40 ml # Bowel Movements 0 0 1 Vital Signs Date Time Temp Pulse Resp B/P Pulse Ox O2 Delivery O2 Flow Rate FiO2 08/23/16 18:00 56 08/23/16 18:00 56 97/65 08/23/16 16:01 65 28 104/64 94 105/67 08/23/16 16:01 65 28 104/64 94 105/67 08/23/16 16:00 65 08/23/16 16:00 98.9 65 28 106/68 94 08/23/16 16:00 70 08/23/16 15:38 93 70 08/23/16 15:00 60 28 98/61 95 08/23/16 14:00 62 23 92/61 96 92/86 08/23/16 14:00 62 08/23/16 13:00 53 28 97/59 96 08/23/16 12:00 52 28 102/68 98 112/70 08/23/16 12:00 52 08/23/16 12:00 98.7 52 28 102/68 98 112/70 08/23/16 12:00 70 08/23/16 11:47 97 70 08/23/16 10:00 55 08/23/16 08:34 96 70 08/23/16 08:00 98.7 70 28 134/80 96 108/94 08/23/16 08:00 70 08/23/16 08:00 70 08/23/16 07:00 Mechanical Ventilator 15.00 70 08/23/16 07:00 71 28 134/71 98 08/23/16 06:00 94/ 08/23/16 06:00 79 08/23/16 04:38 100 70 08/23/16 04:00 70 08/23/16 04:00 98.8 57 28 101/67 98 92/64 08/23/16 04:00 60 08/23/16 02:00 66 08/23/16 01:38 100 70 08/23/16 00:00 98.6 58 28 100/67 97 98/58 08/23/16 00:00 58 08/23/16 00:00 70 08/22/16 22:10 95 70 08/22/16 22:00 62 08/22/16 20:02 96 70 08/22/16 20:00 71 08/22/16 20:00 98.8 71 28 110/75 97 113/67 08/22/16 20:00 70 08/22/16 19:00 97 Mechanical Ventilator 70 Exam Comments lethargic, not following commands. pupils 2 mm symmetric right hemiplegia. No tonic clonic activity or tremor Objective Micro and Labs Laboratory Tests Test 08/22/16 08/23/16 08/23/16 20:35 05:30 08:08 Sodium Level 146 146 146 Serum Osmolality 317 317 White Blood Count 7.1 Red Blood Count 3.07 Hemoglobin 9.5 Hematocrit 28.7 Mean Corpuscular Volume 93.2 Mean Corpuscular Hemoglobin 30.9 Mean Corpuscular Hemoglobin 33.1 Concent Red Cell Distribution Width 14.5 Platelet Count 109 Mean Platelet Volume 9.1 Neutrophils (%) (Auto) 82.1 Lymphocytes (%) (Auto) 9.5 Monocytes (%) (Auto) 7.5 Eosinophils (%) (Auto) 0.7 Basophils (%) (Auto) 0.2 Neutrophils # (Auto) 5.9 Lymphocytes # (Auto) 0.7 Monocytes # (Auto) 0.5 Eosinophils # (Auto) 0.1 Basophils # (Auto) 0.0 CBC Comment DIFF FINAL Differential Comment Potassium Level 4.4 Chloride Level 109 Carbon Dioxide Level 33.0 Anion Gap 4 Blood Urea Nitrogen 29 Creatinine 0.72 Estimat Glomerular Filtration 116 Rate Random Glucose 123 Calcium Level 7.6 Phosphorus Level 3.5 Magnesium Level 2.5 Date/Time Procedure Status Source Growth 08/22/16 09:49 Aerobic Blood Culture - Preliminary Resulted Blood Peripheral NO GROWTH IN 1 DAY 08/22/16 09:49 Anaerobic Blood Culture - Preliminary Resulted Blood Peripheral NO GROWTH IN 1 DAY 08/19/16 10:30 Gram Stain - Final Complete Sputum Endotracheal 08/19/16 10:30 Sputum Culture - Final Complete Sputum Endotracheal HEAVY GROWTH NORMAL RESPIRATORY [place] 08/19/16 10:05 Urine Culture - Final Complete Urine Catheterized Urine NO GROWTH IN 48 HOURS. Fabrizio Jean. PhD August 23, 2016 18:58
[2016-08-23] MEDS: ARIPiprazole 15 MG TAB PO SCH (19:51)
[2016-08-24] VITALS (20 sets, daily range): BP systolic 66–110; BP diastolic 54–81; PULSE 56–79; RESP 28; TEMP 98.1–98.8; O2SAT 95–100
[2016-08-24] MEDS: SODIUM CHLOR 0.9% 1000 ML INJ 1,000 ML IV SCH (03:30)
[2016-08-24] MEDS: RESP: ALBUTEROL 2.5 MG/IPRATROPIUM 0.5 MG NEB (SCH) NEB ×6 (03:39→23:58)
[2016-08-24] MEDS: CHLORHEXIDINE GLUCONATE 2 % 1 PACK (2 CLOTHS) TOP SCH (04:00)
[2016-08-24] MEDS: HEPARIN SODIUM - SQ 10,000 UNITS/ML VIAL SQ SCH ×3 (04:49→22:38)
[2016-08-24] MEDS: PHENYTOIN INJ 100 MG/2 ML VIAL IV SCH ×3 (04:49→22:37)
[2016-08-24] MEDS: methylPREDNISolone SOD SUCC 125 MG/2 ML VIAL IVP SCH ×3 (04:49→22:38)
[2016-08-24] MEDS: INSULIN ASPART SUPPLEMENTAL SCALE SQ SCH ×4 (04:50→18:00)
[2016-08-24] MEDS: FAMOTIDINE 20 MG/2 ML VIAL IV PUSH SCH ×2 (04:50→17:32)
[2016-08-24] MEDS: 3% SALINE INJ 500 ML IV SCH (04:51)
[2016-08-24] MEDS: PROPOFOL 1000 MG/100 ML INJ 100 ML IV SCH ×5 (04:52→22:58)
--- NOTE | 2016-08-24 06:00 | RADRPT ---
EXAM DATE/TIME: 08/24/2016 03:19 [facility] COMPARISON: CHEST SINGLE AP, August 23, 2016, 3:20. INDICATIONS : Shortness of breath, possible pulmonary disease. MEDICAL HISTORY : Venous insufficiency. Carcinoma, lung. Chronic obstructive pulmonary disease. Diabetes SURGICAL HISTORY : Coronary artery stent. ENCOUNTER: Subsequent ACUITY: 1 week PAIN SCORE: Non-responsive. LOCATION: Bilateral chest FINDINGS: A single view of the chest demonstrates right perihilar and right basilar densities, decreased in pro minence from previous study. Small right upper lobe mass again seen. Right-sided chest tube without p neumothorax. Right-sided portacatheter unchanged. Left lung is clear. Heart normal in size. Endotrach eal tube, nasogastric tube and left jugular central line are stable in position. Osseous structures are intact. CONCLUSION: Decreasing pleural-parenchymal density in the right lung base on current study. Small mass right uppe r lobe and right hilar adenopathy. Viral Frye MD on August 24, 2016 at 5:56 Board Certified Radiologist. This report was verified electronically.
[2016-08-24 06:05] LABS: HEMATOCRIT 28.7 % (39.0-51.0); MEAN CELL VOLUME 92.2 FL (80.0-100.0); MEAN CORPUSCULAR HEMOGLOBIN 31.3 PG (27.0-34.0); MEAN CORPUSCULAR HGB CONC 33.9 % (32.0-36.0); PLATELET COUNT 114 TH/MM3 (150-450); RED BLOOD COUNT 3.11 MIL/MM3 (4.50-5.90); RED CELL DISTRIBUTION WIDTH 14.4 % (11.6-17.2); REVIEW FLAG FINAL; WHITE BLOOD COUNT 6.9 TH/MM3 (4.0-11.0)
[2016-08-24 06:29] LABS: BICARBONATE 31.9 MEQ/L (21.0-32.0); MAGNESIUM 2.6 MG/DL (1.5-2.5); POTASSIUM 4.4 MEQ/L (3.5-5.1)
[2016-08-24] MEDS: fentaNYL DRIP 250 ML IV SCH ×2 (06:35→19:58)
[2016-08-24] MEDS: BUDESONIDE-FORMOTEROL 160/4.5 MCG INHALER INH SCH ×2 (09:00→21:00)
[2016-08-24] MEDS: TIOTROPIUM BROMIDE 18 MCG INH INH SCH (09:00)
[2016-08-24] MEDS: ASPIRIN 81 MG CHEW TAB CHEW SCH (09:21)
[2016-08-24] MEDS: GABAPENTIN 100 MG CAP PO SCH ×3 (09:21→18:00)
[2016-08-24] MEDS: ATORVASTATIN 20 MG TAB PO SCH (09:21)
[2016-08-24] MEDS: FUROSEMIDE 20 MG/2 ML VIAL IV PUSH SCH (09:22)
[2016-08-24] MEDS: POLYETHYLENE GLYCOL 17 GM PKG PO SCH (09:22)
[2016-08-24] MEDS: SENNOSIDES SYRUP 8.8 MG/5 ML CUP OG-TUBE SCH (09:22)
[2016-08-24] MEDS: SODIUM CHLORIDE 0.9% FLUSH 10 ML FLUSH IV FLUSH SCH ×2 (09:23→22:37)
[2016-08-24] MEDS: CHLORHEXIDINE 0.12% (ORAL KIT) 15 ML CUP MT SCH ×2 (09:24→22:36)
--- NOTE | 2016-08-24 10:08 | RADRPT ---
EXAM DATE/TIME: 08/24/2016 09:50 [facility] COMPARISON: CT BRAIN W/O CONTRAST, August 22, 2016, 11:25. INDICATIONS : Followup cerebral edema after infarction.. RADIATION DOSE: 49.34 CTDIvol (mGy) MEDICAL HISTORY : Carcinoma, lung. Cardiovascular disease SURGICAL HISTORY : None. ENCOUNTER: Initial ACUITY: 2 weeks PAIN SCALE: Non-responsive LOCATION: cranial TECHNIQUE: Multiple contiguous axial images were obtained of the head. Using automated exposure control and adj ustment of the mA and/or kV according to patient size, radiation dose was kept as low as reasonably a chievable to obtain optimal diagnostic quality images. FINDINGS: There has been a mild interval decrease in the low attenuation edema throughout the left middle cerebral artery territory. This involves portions of the left frontal, parietal and temporal lobes. T here is decreased mass effect and midline shift with only mild residual now noted measuring approxima tely 3 mm. On the prior study this measured up to 7 mm. The ventricular system is within normal limit s. The posterior fossa and brainstem are intact. There is no acute hemorrhage. The bone windows are u nremarkable. CONCLUSION: Evolution of the left middle cerebral artery territory infarction with mildly decreas ed edema, mass effect and midline shift. Barrett Holman MD on August 24, 2016 at 10:03 Board Certified Radiologist. This report was verified electronically.
--- NOTE | 2016-08-24 10:51 | HHI.PR ---
Objective Vital Signs Date Time Temp Pulse Resp B/P Pulse Ox O2 Delivery O2 Flow Rate FiO2 08/24/16 08:34 97 70 08/24/16 06:00 63 08/24/16 04:00 70 08/24/16 04:00 60 08/24/16 04:00 98.2 73 28 110/62 96 91/72 08/24/16 03:40 97 70 08/24/16 02:00 58 08/24/16 00:00 70 08/24/16 00:00 57 08/24/16 00:00 98.7 57 28 98/67 97 107/64 08/23/16 23:43 97 70 08/23/16 22:00 58 08/23/16 20:04 99 70 08/23/16 20:00 98.9 55 28 92/64 98 101/61 08/23/16 20:00 55 08/23/16 20:00 70 08/23/16 19:00 99 Mechanical Ventilator 70 08/23/16 18:00 56 08/23/16 18:00 56 97/65 08/23/16 16:01 65 28 104/64 94 105/67 08/23/16 16:01 65 28 104/64 94 105/67 08/23/16 16:00 65 08/23/16 16:00 98.9 65 28 106/68 94 08/23/16 16:00 70 08/23/16 15:38 93 70 08/23/16 15:00 60 28 98/61 95 08/23/16 14:00 62 23 92/61 96 92/86 08/23/16 14:00 62 08/23/16 13:00 53 28 97/59 96 08/23/16 12:00 52 28 102/68 98 112/70 08/23/16 12:00 52 08/23/16 12:00 98.7 52 28 102/68 98 112/70 08/23/16 12:00 70 08/23/16 11:47 97 70 I/O 08/23/16 08/23/16 08/23/16 08/24/16 08/24/16 08/24/16 07:00 15:00 23:00 07:00 15:00 23:00 Intake Total 1270 ml 1447 ml 1283 ml 1564 ml Output Total 640 ml 1670 ml 790 ml 790 ml Balance 630 ml -223 ml 493 ml 774 ml IV Total 612 ml 837 ml 745 ml 792 ml Tube Feeding 538 ml 490 ml 438 ml 572 ml Other 120 ml 120 ml 100 ml 200 ml Output Urine Total 600 ml 1620 ml 750 ml 500 ml Tube Feeding Residual Discard 0 ml Chest Tube Drainage Total 40 ml 50 ml 40 ml 290 ml # Bowel Movements 1 0 0 Result Diagram: 08/24/16 0505 08/24/16 0505 Objective Remarks fully sedated Assessment and Plan Assessment and Plan dvt hx adenoca lung large left mca ct today looks better i dw nurse and family will wean down sedatives bp should come up with that Israel Chnig MD August 24, 2016 10:51
--- NOTE | 2016-08-24 13:27 | PD.ONC.PN ---
Subjective Subjective Remarks Moving left side. Remains sedated. Objective Data Date Time Temp Pulse Resp B/P Pulse Ox O2 Delivery O2 Flow Rate FiO2 08/24/16 12:00 76 08/24/16 11:37 95 70 08/24/16 10:00 69 08/24/16 08:34 97 70 08/24/16 08:00 58 08/24/16 08:00 96 Mechanical Ventilator 70 08/24/16 08:00 56 93/61 08/24/16 06:00 63 08/24/16 04:00 70 08/24/16 04:00 60 08/24/16 04:00 98.2 73 28 110/62 96 91/72 08/24/16 03:40 97 70 08/24/16 02:00 58 08/24/16 00:00 70 08/24/16 00:00 57 08/24/16 00:00 98.7 57 28 98/67 97 107/64 08/23/16 23:43 97 70 08/23/16 22:00 58 08/23/16 20:04 99 70 08/23/16 20:00 98.9 55 28 92/64 98 101/61 08/23/16 20:00 55 08/23/16 20:00 70 08/23/16 19:00 99 Mechanical Ventilator 70 08/23/16 18:00 56 08/23/16 18:00 56 97/65 08/23/16 16:01 65 28 104/64 94 105/67 08/23/16 16:01 65 28 104/64 94 105/67 08/23/16 16:00 65 08/23/16 16:00 98.9 65 28 106/68 94 08/23/16 16:00 70 08/23/16 15:38 93 70 08/23/16 15:00 60 28 98/61 95 08/23/16 14:00 62 23 92/61 96 92/86 08/23/16 14:00 62 08/24/16 08/24/16 08/24/16 07:00 15:00 23:00 Intake Total 1564 ml Output Total 790 ml 0 ml Balance 774 ml 0 ml Result Diagram: 08/24/16 0505 08/24/16 0505 Laboratory Results Laboratory Tests Test 08/23/16 08/24/16 20:10 05:05 Sodium Level 146 MEQ/L 147 MEQ/L Serum Osmolality 310 MOSM/KG 315 MOSM/KG White Blood Count 6.9 TH/MM3 Red Blood Count 3.11 MIL/MM3 Hemoglobin 9.7 GM/DL Hematocrit 28.7 % Mean Corpuscular Volume 92.2 FL Mean Corpuscular Hemoglobin 31.3 PG Mean Corpuscular Hemoglobin 33.9 % Concent Red Cell Distribution Width 14.4 % Platelet Count 114 TH/MM3 Mean Platelet Volume 9.3 FL Potassium Level 4.4 MEQ/L Chloride Level 109 MEQ/L Carbon Dioxide Level 31.9 MEQ/L Anion Gap 6 MEQ/L Blood Urea Nitrogen 29 MG/DL Creatinine 0.72 MG/DL Estimat Glomerular Filtration 116 ML/MIN Rate Random Glucose 120 MG/DL Calcium Level 7.9 MG/DL Phosphorus Level 3.2 MG/DL Magnesium Level 2.6 MG/DL Culture Results Microbiology Date/Time Procedure Status Source Growth 08/22/16 09:40 Aerobic Blood Culture - Preliminary Resulted Blood Peripheral NO GROWTH IN 2 DAYS 08/22/16 09:40 Anaerobic Blood Culture - Preliminary Resulted Blood Peripheral NO GROWTH IN 2 DAYS 08/22/16 09:49 Aerobic Blood Culture - Preliminary Resulted Blood Peripheral NO GROWTH IN 2 DAYS 08/22/16 09:49 Anaerobic Blood Culture - Preliminary Resulted Blood Peripheral NO GROWTH IN 2 DAYS Imaging Studies Last [address] 08/24/16 09 Signed Impressions: Service Date/Time: Wednesday, August 24, 2016 09:50 - CONCLUSION: Evolution of the left middle cerebral artery territory infarction with mildly decreased edema, mass effect and midline shift. Barrett Holman MD Chest X-Ray 08/24/16 0600 Signed Impressions: Service Date/Time: Wednesday, August 24, 2016 03:19 - CONCLUSION: Decreasing pleural-parenchymal density in the right lung base on current study. Small mass right upper lobe and right hilar adenopathy. Viral Frye MD Administered Medications Medications (Trade) Dose Ordered Sig/Beto Route PRN Reason Start Time Stop Time Status Last Admin Dose Admin Sodium Chloride (NS Flush) 2 ml UNSCH PRN IV FLUSH SEE COMMENTS 08/15/16 07:15 08/20/16 08:34 Sodium Chloride (NS Flush) 2 ml UNSCH PRN IV FLUSH FLUSH AFTER USING IV ACCESS 08/15/16 07:15 08/20/16 08:33 Sodium Chloride (NS Flush) 5 ml Q21D IV FLUSH 08/15/16 07:15 08/23/16 08:18 Sodium Chloride (NS Flush) 5 ml UNSCH PRN IV FLUSH SEE LABEL COMMENTS 08/15/16 07:15 08/20/16 08:34 Sodium Chloride (NS Flush) 2 ml BID IV FLUSH 08/15/16 21:00 08/24/16 09:23 Sodium Chloride (NS Flush) 2 ml UNSCH PRN IV FLUSH FLUSH AFTER USING IV ACCESS 08/15/16 12:15 08/20/16 08:33 Aripiprazole (Abilify) 15 mg HS PO 08/15/16 21:00 08/23/16 19:51 Budesonide/ Formoterol Fumarate (Symbicort 160-4.5 Inh) 2 puff Q12HR INH 08/15/16 21:00 08/20/16 19:41 Gabapentin (Neurontin) 100 mg TID PO 08/15/16 13:00 08/24/16 09:21 Trazodone HCl (Desyrel) 100 mg HS PO 08/15/16 21:00 Hold 08/18/16 19:33 Docusate Sodium (Colace) 100 mg BID PRN PO CONSTIPATION 08/15/16 12:15 08/20/16 13:14 Miscellaneous Information 1 Q361D XX 08/15/16 13:15 08/15/16 19:00 Chlorhexidine Gluconate Taper DAILY@04 TOP 08/16/16 04:00 08/12/17 03:59 08/20/16 02:00 Heparin Sodium/ Dextrose 250 ml @ 0 mls/hr TITRATE IV 08/15/16 13:15 Hold 08/15/16 15:22 Levofloxacin/ Dextrose (Levaquin 750 Mg Premix Inj) 150 ml @ 100 mls/hr Q24H IV 08/15/16 16:00 08/23/16 16:27 Hydralazine HCl (Apresoline Inj) 10 mg Q2HR PRN IV PUSH BP >150/90 08/15/16 16:00 08/16/16 04:36 Famotidine (Pepcid Inj) 20 mg Q12H IV PUSH 08/15/16 16:00 08/24/16 04:50 Phenytoin Sodium (Dilantin Inj) 100 mg Q8HR IV 08/16/16 14:00 08/24/16 04:49 Chlorhexidine Gluconate 15 ml 15 ml BID@08,20 MT 08/16/16 20:00 08/24/16 09:24 Propofol 100 ml @ 0 mls/hr TITRATE IV 08/16/16 15:30 08/24/16 09:22 Norepinephrine Bitartrate 250 ml @ 0 mls/hr TITRATE IV 08/16/16 15:30 08/18/16 14:43 Sodium Chloride 1,000 ml @ 20 mls/hr Q24H IV 08/16/16 15:30 08/24/16 03:30 Fentanyl Citrate (fentaNYL DRIP) 250 ml @ 0 mls/hr TITRATE IV 08/17/16 10:45 08/24/16 06:35 Insulin Aspart (NovoLOG SUPPLEMENTAL SCALE) 1 Q6HR SQ 08/17/16 12:00 08/23/16 18:26 Methylprednisolone Sodium Succinate (SoluMEDROL INJ) 60 mg Q8HR IVP 08/17/16 14:00 08/24/16 04:49 Aspirin 162 mg 162 mg DAILY CHEW 08/17/16 12:15 08/24/16 09:21 Sodium Chloride (Sodium Chloride 3% Inj) 500 ml @ 25 mls/hr Q20H IV 08/18/16 11:15 08/24/16 04:51 Sennosides (Senna Liq) 8.8 mg DAILY OG-TUBE 08/18/16 11:30 08/24/16 09:22 Heparin Sodium (Porcine) (Heparin Inj) 5,000 units Q8HR SQ 08/19/16 22:00 08/24/16 04:49 Atorvastatin Calcium (Lipitor) 20 mg DAILY PO 08/19/16 20:00 08/24/16 09:21 Polyethylene Glycol (Miralax) 17 gm DAILY PO 08/22/16 09:00 08/24/16 09:22 Furosemide (Lasix Inj) 20 mg DAILY IV PUSH 08/23/16 11:30 08/24/16 09:22 Objective Remarks GENERAL: Sedated SKIN: Warm and dry. HEAD: Normocephalic. EYES: No scleral icterus. No injection or drainage. NECK: Supple, trachea midline. No JVD or lymphadenopathy. LYMPHATIC: No adenopathy. CARDIOVASCULAR: Regular rate and rhythm without murmurs. RESPIRATORY: Breath sounds equal bilaterally. No accessory muscle use. Vent assisted. GASTROINTESTINAL: Abdomen soft, non-tender, nondistended. EXTREMITIES: No cyanosis, or edema. MUSCULOSKELETAL: Adequate muscle tone. NEUROLOGICAL: Right hemiplegia. Assessment/Plan Problem List: (1) Lung cancer Status: Acute Plan: 08/20: pathology shows invasive poorly differentiated adenocarcinoma of likely lung primary. -- Right upper lobe lung mass measured 4.4 cm with mediastinal, right supraclavicular and right hilar adenopathy. --went to [facility] and had PET scan done which did not show any other distant metastasis. -- Based on the CT scan finding he is clinically stage IIIA. --No candidate for treatment at this time due to massive stroke. (2) Pulmonary embolism Status: Acute Plan: --no significant LE edema --has IVC filter. Not candidate for full anticoagulation at this time. --on heparin prophylaxis and antiplatelet therapy. --s/p IVC filter placement (3) Respiratory failure Status: Acute Plan: --on mechanical ventilation --developed a small pneumothorax after the biopsy. ++bilateral subsegmental pulmonary embolism. ++left lower extremity deep venous thrombosis dx more than a month ago (4) Stroke Status: Acute Plan: --CT 08/24 showed slight decreased edema and mass effect. --ns following --Right hemiplegia Assessment 50y/o male with lung mass admitted with respiratory failure. History: (from original consult): had a port placement on Friday and reportedly doing well, yesterday when the he went for biopsy of lung mass. --was having shortness of breath after the biopsy and he was found to have pneumothorax and he developed worsening respiratory distress. --CT angiogram was done which showed bilateral subsegmental pulmonary embolism. --was admitted to the ICU. A chest tube was placed, reportedly in the evening he developed right-sided paralysis and was found to have a major stroke in the left hemisphere. h/o COPD, LLE DVT, osteopenia Plan 1. Head CT showed decreased edema. Prognosis guarded. 2. Continue supportive care. 3. Discussed with pt's son at bedside. His questions answered. Kris Murry MD August 24, 2016 13:27
[2016-08-24] MEDS: LEVOFLOXACIN 750 MG PREMIX INJ 150 ML IV SCH (17:32)
--- NOTE | 2016-08-24 17:49 | HHI.CCPN ---
Subjective Remarks/Hospital Course 08/15: Mr. Cooley is a 50 y/o CM with a PMHx of COPD who continues to smoke and is s/p R lung biopsy secondary to a recently found lung mass presenting with dyspnea. Prior to his biopsy today, he was being treated as an outpatient with a Medrol dose pack with Levaquin for a COPD exacerbation. He endorsed dyspnea on exertion today, but denied any fevers, chest pain, wheezing, cough, or LE edema/tenderness. He has a history of LLE DVT diagnosed in 07/05, but has been off his anticoagulation for approximately 11 days (Previously on Xarelto). He had a port placed 2 days ago and lung biopsy today. He has been short of breath since 1 day prior to the procedure. After his biopsy, he was found to have a small apical pneumothorax on CXR, diaphoretic, and tachypneic with hypoxia of 81 % on room air. He was placed on 4L and improved to 85%. He was then placed on a non-rebreather and transferred to the ICU. On arrival he was tachypneic with oxygen saturation in the upper 80s. CTA showed acute pulmonary embolisms of the BL lower lobes with a small R pneumothorax. Therefore a R sided chest tube was placed and heparin drip without bolus was initiated. The patient has been continued on Levaquin ABX, has been give steroids with multiple breathing treatments, and has been placed on BiPAP. 08/16: Patient was noted to have an elevated troponin and was diagnosed to have a non-ST elevation OH last evening. He was on BiPAP at the time with full facemask. It was noticed that he was not moving the right side of his body when he was turned to administer rectal aspirin and subsequent head CT and CTA revealed significant edema in the left cerebral hemisphere and occluded left MCA with thrombus. Neurology was contacted by Dr. Martínez and due to concern for hemorrhagic transformation heparin was held. Dr. Martínez discussed the case with Dr. Okeefe from interventional radiology who did not feel that the patient was a good candidate for clot retrieval due to high risk for hemorrhagic transformation given the amount of cerebral edema and extent of infarct. Patient was given mannitol. This morning when I evaluated patient was in BiPAP with full facemask with a dense right hemiplegia with some spontaneous movement involving his left upper extremity. He was intubated and placed on mechanical ventilation for airway protection and hyperventilation in view of cerebral edema as well as for borderline respiratory status. Subsequently he underwent MRI brain which showed large left MCA territory infarct with some collateral flow. IVC filter was placed by interventional radiology after discussion with Dr. Murry, his oncologist as patient is now off heparin and is at risk for recurrent PE. 08/17: Remains sedated, orally intubated on mechanical ventilation. On 3% saline overnight. Head CT done this morning shows slight increase in cerebral edema in the area of left MCA territory infarct which appears more hypodense. Remains on Levophed 10mcg/min. Moves left side spontaneously however not following commands. Right hemiplegia persists 08/18: Remains sedated, orally intubated on mechanical ventilation. Remains on 3 % saline, Levophed. Awakens on lightening sedation and moves left side spontaneously. Right hemiplegia persists though maintenance technician 3rd shift RN noticed some flickering movement in his fingers on the right. 08/19: Remains sedated, orally intubated on mechanical ventilation. Off Levophed. Awakens on lightening sedation and moves left side spontaneously. Right hemiplegia persists. Tolerating tube feeds. Spiked temperatures overnight. Parr cultures ordered. Suspect central fever versus infection. On Levaquin currently. 08/20: Remains sedated, orally intubated on mechanical ventilation. Awakens on lightening sedation and moves left side spontaneously. Right hemiplegia persists. Tolerating tube feeds. 08/21: Sedated, arousable, orally intubated on mechanical ventilation. Right hemiplegia persists. Moving left side spontaneously. Tolerating tube feeds. Starting diuresis with Lasix in view of positive fluid balance to mobilize fluid. 08/22:TMax 101.0. Repeat cultures performed .Patient continues on 3% normal saline, CT brain pending this a.m.. Patient moving left upper and lower extremities, spontaneously. No vasopressors needed, hemodynamically stable. Continued right hemiplegia. Patient's at bedside, requesting patient be made DNR and this a.m.. 08/23: Tmax 98.8. CT brain performed yesterday revealed slight increase in cerebral edema with a 6 mm right to left midline shift. Repeat CT of brain scheduled for Friday. Extensive discussion with neurology Dr. Jean, Palliative care team regarding the results, and decisions for goals of care. Continued right hemiplegia, with spontaneous movement of left upper and lower extremity. 08/24: Repeat CT brain performed today, show mild lead decreased edema still has midline shift. Continued right hemiplegia. Objective Vital Signs Date Time Temp Pulse Resp B/P Pulse Ox O2 Delivery O2 Flow Rate FiO2 08/24/16 14:42 96 70 08/24/16 12:00 76 08/24/16 12:00 98.3 28 96/81 08/24/16 08:00 Mechanical Ventilator 08/23/16 07:00 15.00 Intake and Output 08/23/16 08/23/16 08/24/16 08:00 16:00 00:00 Intake Total 1270 ml 1447 ml 1283 ml Output Total 640 ml 1670 ml 790 ml Balance 630 ml -223 ml 493 ml Result Diagram: 08/24/16 0505 08/24/16 0505 Imaging Last 24 hours Impressions Chest X-Ray 08/23/16 0600 Signed Impressions: Service Date/Time: Tuesday, August 23, 2016 03:20 - CONCLUSION: Right basilar pleural-parenchymal density likely pleural effusion and right basilar consolidation. Viral Frye MD Last Impressions Chest X-Ray 08/21/16 0000 Signed Impressions: Service Date/Time: Sunday, August 21, 2016 05:23 - CONCLUSION: 1. There is no evidence of pneumothorax. Israel Okeeef MD Head CT 08/20/16 1500 Signed Impressions: Service Date/Time: Saturday, August 20, 2016 16:25 - CONCLUSION: 1. No change in large nonhemorrhagic left MCA territory infarction with some mass effect as detailed above. Murphy Persaud Jr., MD Head CTA 08/16/16 0207 Signed Impressions: Service Date/Time: Tuesday, August 16, 2016 04:10 - CONCLUSION: Thrombosed left middle cerebral artery with associated large subacute cerebral infarct. Neftaly Holden MD Neck CTA 08/16/16 0000 Signed Impressions: Service Date/Time: Tuesday, August 16, 2016 04:10 - CONCLUSION: 1. Extracranial carotids are normal. Also normal vertebral arteries. 2. Known malignant right upper lobe mass. Mediastinal and hilar lymphadenopathy seen in the upper chest. Neftaly Holden MD IVC Filter Placement X-Ray 08/16/16 0000 Signed Impressions: Service Date/Time: Tuesday, August 16, 2016 10:30 - CONCLUSION: Uncomplicated inferior vena cava filter placement as above. Israel Okeefe MD Head Magnetic Resonance Angiography 08/16/16 0000 Signed Impressions: Service Date/Time: Tuesday, August 16, 2016 10:27 - CONCLUSION: Markedly abnormal cerebral perfusion corresponding to the large MCA occlusion on the left. Harshad Campbell MD FACR Brain MRI 08/16/16 0000 Signed Impressions: Service Date/Time: Tuesday, August 16, 2016 10:27 - CONCLUSION: Large area of infarction involving the left Sylvian region. There is occlusion of the distal left MCA. There is some collateralization distally. Harshad Campbell MD FACR Lung Biopsy CT 08/15/16 0000 Signed Impressions: Service Date/Time: July 08:22 - CONCLUSION: Uncomplicated CT guided biopsy of the right upper lobe lung mass. Neftaly Rodriguez MD CT Angiography 08/15/16 0000 Signed Impressions: Service Date/Time: July 13:22 - CONCLUSION: 1. There is acute appearing PE in the right lower lobe segmental and left lower lobe subsegmental pulmonary arteries. These PE are new since the prior CT from 07/09/2016. 2. Small right pneumothorax. 3. Right upper lobe pulmonary mass remains present and measures 4.9 cm. There is associated mediastinal, right hilar, and right supraclavicular lymphadenopathy suspicious for lymphatic spread of disease. Neftaly Rodriguez MD Last 48 hours Impressions Chest X-Ray 08/20/16 0600 Signed Impressions: Service Date/Time: Saturday, August 20, 2016 03:45 - CONCLUSION: 1. Improving diffuse right-sided opacity. There is no evidence of pneumothorax. Israel Okeefe MD Head CT 08/19/16 1500 Signed Impressions: Service Date/Time: Friday, August 19, 2016 16:04 - CONCLUSION: Stable brain appearance Neftaly Abad MD Last [address] 08/18/16 0800 Signed Impressions: Service Date/Time: Thursday, August 18, 2016 20:37 - CONCLUSION: Evolving left MCA stroke into an area of encephalomalacia involving the left frontal temporal and parietal lobes. Diane Guzman MD Chest X-Ray 08/18/16 0600 Signed Impressions: Service Date/Time: Thursday, August 18, 2016 03:13 - CONCLUSION: No perceptible pneumothorax. Otherwise no change. Neftaly Holden MD Last [address] 08/17/16 0800 Signed Impressions: Service Date/Time: Wednesday, August 17, 2016 08:23 - CONCLUSION: 1. Evolving left MCA infarct. Galindo Vuong MD Head CTA 08/16/16 0207 Signed Impressions: Service Date/Time: Tuesday, August 16, 2016 04:10 - CONCLUSION: Thrombosed left middle cerebral artery with associated large subacute cerebral infarct. Neftaly Holden MD Neck CTA 08/16/16 0000 Signed Impressions: Service Date/Time: Tuesday, August 16, 2016 04:10 - CONCLUSION: 1. Extracranial carotids are normal. Also normal vertebral arteries. 2. Known malignant right upper lobe mass. Mediastinal and hilar lymphadenopathy seen in the upper chest. Neftaly Holden MD IVC Filter Placement X-Ray 08/16/16 0000 Signed Impressions: Service Date/Time: Tuesday, August 16, 2016 10:30 - CONCLUSION: Uncomplicated inferior vena cava filter placement as above. Israel Okeefe MD Head Magnetic Resonance Angiography 08/16/16 0000 Signed Impressions: Service Date/Time: Tuesday, August 16, 2016 10:27 - CONCLUSION: Markedly abnormal cerebral perfusion corresponding to the large MCA occlusion on the left. Harshad Campbell MD FACR Head CT 08/16/16 0000 Signed Impressions: Service Date/Time: Tuesday, August 16, 2016 00:56 - CONCLUSION: Large left sided cerebral edema as above, appearance most typical of a subacute middle cerebral artery distribution infarct. No bleed or definite mass. Neftaly Holden MD Chest X-Ray 08/16/16 0000 Signed Impressions: Service Date/Time: Tuesday, August 16, 2016 15:33 - CONCLUSION: 1. Uncomplicated line placement. No evidence of pneumothorax. 2. Decreasing right apical pneumothorax Israel Okeefe MD Chest X-Ray 08/16/16 0000 Signed Impressions: Service Date/Time: Tuesday, August 16, 2016 08:15 - CONCLUSION: 1. Interval intubation. 2. Placement of nasogastric tube with the tip in the distal esophagus. This could be advanced at least 7 cm. 3. Mild interval increase in size the small right apical pneumothorax. 4. Increasing opacity in the right lung base most consistent with infiltrate. Barrett Holman MD Brain MRI 08/16/16 0000 Signed Impressions: Service Date/Time: Tuesday, August 16, 2016 10:27 - CONCLUSION: Large area of infarction involving the left Sylvian region. There is occlusion of the distal left MCA. There is some collateralization distally. Harshad Campbell MD FACR Chest X-Ray 08/15/16 1300 Signed Impressions: Service Date/Time: July 12:55 - CONCLUSION: Stable tiny right apical pneumothorax. Neftaly Rodriguez MD Chest X-Ray 08/15/16 1200 Signed Impressions: Service Date/Time: July 11:51 - CONCLUSION: There is a new tiny apical right pneumothorax. Neftaly Rodriguez MD Last 72 hours Impressions Chest X-Ray 08/15/16 1300 Signed Impressions: Service Date/Time: July 12:55 - CONCLUSION: Stable tiny right apical pneumothorax. Neftaly Rodriguez MD Chest X-Ray 08/15/16 1200 Signed Impressions: Service Date/Time: July 11:51 - CONCLUSION: There is a new tiny apical right pneumothorax. Neftaly Rodriguez MD Chest X-Ray 08/15/16 1030 Signed Impressions: Service Date/Time: July 10:20 - CONCLUSION: No pneumothorax following recent right lung biopsy. Neftaly Rodriguez MD Lung Biopsy CT 08/15/16 0000 Signed Impressions: Service Date/Time: July 08:22 - CONCLUSION: Uncomplicated CT guided biopsy of the right upper lobe lung mass. Neftaly Rodriguez MD Chest X-Ray 08/15/16 0000 Signed Impressions: Service Date/Time: July 07:12 - CONCLUSION: 1. No pneumothorax is visualized. Right chest wall [id number] distal tip is at the cavoatrial junction. 2. Right upper lobe pulmonary mass is again visualized. Neftaly Rodriguez MD CT Angiography 08/15/16 0000 Signed Impressions: Service Date/Time: July 13:22 - CONCLUSION: 1. There is acute appearing PE in the right lower lobe segmental and left lower lobe subsegmental pulmonary arteries. These PE are new since the prior CT from 07/09/2016. 2. Small right pneumothorax. 3. Right upper lobe pulmonary mass remains present and measures 4.9 cm. There is associated mediastinal, right hilar, and right supraclavicular lymphadenopathy suspicious for lymphatic spread of disease. Neftaly Rodriguez MD Objective Remarks Cardiac output 4.0 Propofol 50 mcgs Fentanyl 250 mcgs 3% normal saline 25cc/hr 0.9% normal saline at 20cc/hr BP GENERAL: Critical ill-appearing male, sedated and intubated SKIN: Warm and dry. HEAD: Atraumatic. Normocephalic. EYES: Pupils equal and round, reactive 3 mm . No scleral icterus. No injection or drainage. ENT: No nasal bleeding or discharge. Mucous membranes pink and moist. NECK: Trachea midline. No JVD. CARDIOVASCULAR: Normal rate, regular rhythm. S1-S2 RESPIRATORY: Mechanical ventilation .Right chest tube to waterseal , minimal serous drainage noted. No accessory muscle use. Clear to auscultation. Breath sounds equal bilaterally. [id number] noted right chest wall. GASTROINTESTINAL: Abdomen soft, non-tender, nondistended. Hypoactive bowel sounds. OGT infusing MUSCULOSKELETAL: Extremities without clubbing, cyanosis, or edema. No obvious deformities. NEUROLOGICAL: Intubated and sedated, RASS -2. Spontaneous movement of left upper and left lower extremities Urinary Catheter: Yes Date of Insertion: Aug 16, 2016 Line: Central Venous Catheter Side: Left Location: Jugular A/P Assessment and Plan Neuro: Left MCA territory ischemic infarct with cerebral edema with 6 mm midline shift Encephalopathy Bipolar Disorder with depression/anxiety Sedation with propofol/ fentanyl, daily sedation vacation. Neurochecks per protocol. Neurology, Dr. Jean following , Neurosurgery Dr. Wisdom signed off Continue 3% saline for cerebral edema, hold for serum osmolarity greater than 320. Continue 0.9% normal saline at 20 cc an hour Continue antiplatelet therapy with aspirin. Repeat head CT 08/20 shows some encephalomalacia in the site of left MCA territory infarct, cerebral edema persists. 08/22 CT brain -small increase in cerebral edema with 6 mm midline shift Follow up repeat CT brain schedule 08/24 Monitor neuro status with neuro checks per protocol CV: Hypotension-resolved Non-ST elevation OH History of HTN, CAD with OH s/p stent placement(2002) 08/16- 2-D echo with no evidence of R heart strain. Difficult study due to tachycardia. EF 35-40%. Moderate mid to distal inferior hypokinesis and distal lateral hypokinesis. Trace tricuspid regurgitation. PA peak pressure 53 mmHg. Elevated cardiac enzymes/ EKG consistent with non-ST elevation OH. On aspirin 162mg daily. Cardiology following- Dr. May Off Levophed 07/21. Hold all antihypertensives. KVO IV fluids. We will consider adding low-dose beta camila if no further hypotension. Started lipitor 20 mg by mouth daily (08/19). Initiated diuresis with Lasix and 08/21 to mobilize fluid Pulm: Right pneumothorax(resolved) BL PEs on CTA COPD Exacerbation R Lung mass s/p biopsy-poorly differentiated adenocarcinoma R sided chest tube to waterseal Continue mechanical ventilation. Vent bundle, bronchodilators Solumedrol 60mg Q12H Right sided chest tube in place, no air leak noted. End-tidal CO2 monitoring, attempt keeping PCO2 30-35mm Hg Hold C Pap trials till cerebral edema decreases for the next few days. CTA-segmental or subsegmental PTE in the right lower lobe, subsegmental PE left lower lobe, right upper lobe mass 4.9 cm associated with mediastinal, right hilar, right supraclavicular lymphadenopathy suspicious for spread of disease. Renal/: KVO IVF as patient with decreased EF. Starting diuresis with Lasix on 08/21 as patient has been off Levophed for a few days now. Strict intake output, monitor and replete electrolytes, follow BUN/ creatinine. ID: Continue with empiric abx (Levaquin). sputum cultures and blood cultures repeated on 08/19 for fevers which may be central versus related to infection though patient does not have leukocytosis. Legionella and Streptococcus urinary antigens negative. Tylenol for temperature greater than 101.0 08/19 urine culture- NGTD 08/19 blood culture- NGTD Heme-onc: DVT/PE/right apical lung mass - poorly differentiated adenocarcinoma on pathology Off anticoagulation with heparin due to large stroke with risk for hemorrhagic transformation. IVC filter placed . Continue aspirin. Started subcutaneous heparin on 08/17 after clearing with neurosurgery. Monitor CBC. Thrombocytopenia noted, being followed by Dr. Murry from Oncology. Will need full anticoagulation when okay with neurosurgery for DVT/ PE. Endocrine: Hx of DM per chart review, not on medications at home SSI per protocol GI: Continue tube feeds with Glucerna. Prophylaxis with Pepcid BID No BM since admission- MiraLAX added to bowel regimen DVT prophylaxis: SCDs. SQ heparin Discussed with FILLING STATION EQUIPMENT MECHANIC at bedside. 08/23 Palliative care met with family yesterday. Dr. Jean met with family yesterday. Extensive discussion regarding results of CT of the brain, and goals of care. Family understands the poor prognosis and will make decisions regarding tracheostomy and PEG placement next week. 08/24: Updated medical status and CT report with Mrs. Cooley. This patient remains critically ill with one or more organ systems which are or may become a threat to life. I have spent in excess of 35 minutes discontinuously in the care and management of this patient. This time is exclusive of procedures, and includes, but is not limited to, evaluation of the patient, review of the medical record, discussions with family, consultants, nursing staff, or respiratory therapy, and documentation in the medical record. Physician Fadumo Richard MD August 24, 2016 17:49
[2016-08-24] MEDS: ARIPiprazole 15 MG TAB PO SCH (22:37)
[2016-08-25] VITALS (32 sets, daily range): BP systolic 56–131; BP diastolic 52–96; PULSE 58–89; RESP 28; TEMP 98.2–101; O2SAT 92–100
[2016-08-25] MEDS: PROPOFOL 1000 MG/100 ML INJ 100 ML IV SCH ×3 (02:54→22:11)
[2016-08-25] MEDS: 3% SALINE INJ 500 ML IV SCH ×2 (02:54→22:26)
[2016-08-25] MEDS: CHLORHEXIDINE GLUCONATE 2 % 1 PACK (2 CLOTHS) TOP SCH (04:00)
[2016-08-25] MEDS: RESP: ALBUTEROL 2.5 MG/IPRATROPIUM 0.5 MG NEB (SCH) NEB ×5 (04:10→20:15)
[2016-08-25] MEDS: SODIUM CHLOR 0.9% 1000 ML INJ 1,000 ML IV SCH (05:00)
[2016-08-25] MEDS: fentaNYL DRIP 250 ML IV SCH ×2 (05:20→23:55)
[2016-08-25] MEDS: INSULIN ASPART SUPPLEMENTAL SCALE SQ SCH ×5 (05:55→23:50)
[2016-08-25] MEDS: FAMOTIDINE 20 MG/2 ML VIAL IV PUSH SCH ×2 (05:55→16:00)
[2016-08-25] MEDS: methylPREDNISolone SOD SUCC 125 MG/2 ML VIAL IVP SCH ×3 (06:59→22:19)
[2016-08-25] MEDS: PHENYTOIN INJ 100 MG/2 ML VIAL IV SCH ×3 (06:59→22:18)
[2016-08-25] MEDS: HEPARIN SODIUM - SQ 10,000 UNITS/ML VIAL SQ SCH ×3 (07:00→22:20)
[2016-08-25] MEDS: CHLORHEXIDINE 0.12% (ORAL KIT) 15 ML CUP MT SCH ×2 (08:00→20:00)
[2016-08-25] MEDS: SODIUM CHLORIDE 0.9% FLUSH 10 ML FLUSH IV FLUSH SCH ×2 (09:00→20:01)
[2016-08-25] MEDS: FUROSEMIDE 20 MG/2 ML VIAL IV PUSH SCH (09:00)
[2016-08-25] MEDS: SENNOSIDES SYRUP 8.8 MG/5 ML CUP OG-TUBE SCH (09:00)
[2016-08-25] MEDS: POLYETHYLENE GLYCOL 17 GM PKG PO SCH (09:00)
[2016-08-25] MEDS: GABAPENTIN 100 MG CAP PO SCH ×3 (09:00→16:45)
[2016-08-25] MEDS: BUDESONIDE-FORMOTEROL 160/4.5 MCG INHALER INH SCH ×2 (09:00→21:00)
[2016-08-25] MEDS: TIOTROPIUM BROMIDE 18 MCG INH INH SCH (09:00)
[2016-08-25] MEDS: ASPIRIN 81 MG CHEW TAB CHEW SCH (09:00)
[2016-08-25] MEDS: ATORVASTATIN 20 MG TAB PO SCH (09:00)
--- NOTE | 2016-08-25 10:43 | HHI.CCPN ---
Subjective Remarks/Hospital Course 08/15: Mr. Cooley is a 50 y/o CM with a PMHx of COPD who continues to smoke and is s/p R lung biopsy secondary to a recently found lung mass presenting with dyspnea. Prior to his biopsy today, he was being treated as an outpatient with a Medrol dose pack with Levaquin for a COPD exacerbation. He endorsed dyspnea on exertion today, but denied any fevers, chest pain, wheezing, cough, or LE edema/tenderness. He has a history of LLE DVT diagnosed in 07/05, but has been off his anticoagulation for approximately 11 days (Previously on Xarelto). He had a port placed 2 days ago and lung biopsy today. He has been short of breath since 1 day prior to the procedure. After his biopsy, he was found to have a small apical pneumothorax on CXR, diaphoretic, and tachypneic with hypoxia of 81 % on room air. He was placed on 4L and improved to 85%. He was then placed on a non-rebreather and transferred to the ICU. On arrival he was tachypneic with oxygen saturation in the upper 80s. CTA showed acute pulmonary embolisms of the BL lower lobes with a small R pneumothorax. Therefore a R sided chest tube was placed and heparin drip without bolus was initiated. The patient has been continued on Levaquin ABX, has been give steroids with multiple breathing treatments, and has been placed on BiPAP. 08/16: Patient was noted to have an elevated troponin and was diagnosed to have a non-ST elevation MN last evening. He was on BiPAP at the time with full facemask. It was noticed that he was not moving the right side of his body when he was turned to administer rectal aspirin and subsequent head CT and CTA revealed significant edema in the left cerebral hemisphere and occluded left MCA with thrombus. Neurology was contacted by Dr. Martínez and due to concern for hemorrhagic transformation heparin was held. Dr. Martínez discussed the case with Dr. Okeefe from interventional radiology who did not feel that the patient was a good candidate for clot retrieval due to high risk for hemorrhagic transformation given the amount of cerebral edema and extent of infarct. Patient was given mannitol. This morning when I evaluated patient was in BiPAP with full facemask with a dense right hemiplegia with some spontaneous movement involving his left upper extremity. He was intubated and placed on mechanical ventilation for airway protection and hyperventilation in view of cerebral edema as well as for borderline respiratory status. Subsequently he underwent MRI brain which showed large left MCA territory infarct with some collateral flow. IVC filter was placed by interventional radiology after discussion with Dr. Murry, his oncologist as patient is now off heparin and is at risk for recurrent PE. 08/17: Remains sedated, orally intubated on mechanical ventilation. On 3% saline overnight. Head CT done this morning shows slight increase in cerebral edema in the area of left MCA territory infarct which appears more hypodense. Remains on Levophed 10mcg/min. Moves left side spontaneously however not following commands. Right hemiplegia persists 08/18: Remains sedated, orally intubated on mechanical ventilation. Remains on 3 % saline, Levophed. Awakens on lightening sedation and moves left side spontaneously. Right hemiplegia persists though shift foreman RN noticed some flickering movement in his fingers on the right. 08/19: Remains sedated, orally intubated on mechanical ventilation. Off Levophed. Awakens on lightening sedation and moves left side spontaneously. Right hemiplegia persists. Tolerating tube feeds. Spiked temperatures overnight. Parr cultures ordered. Suspect central fever versus infection. On Levaquin currently. 08/20: Remains sedated, orally intubated on mechanical ventilation. Awakens on lightening sedation and moves left side spontaneously. Right hemiplegia persists. Tolerating tube feeds. 08/21: Sedated, arousable, orally intubated on mechanical ventilation. Right hemiplegia persists. Moving left side spontaneously. Tolerating tube feeds. Starting diuresis with Lasix in view of positive fluid balance to mobilize fluid. 08/22:TMax 101.0. Repeat cultures performed .Patient continues on 3% normal saline, CT brain pending this a.m.. Patient moving left upper and lower extremities, spontaneously. No vasopressors needed, hemodynamically stable. Continued right hemiplegia. Patient's at bedside, requesting patient be made DNR and this a.m.. 08/23: Tmax 98.8. CT brain performed yesterday revealed slight increase in cerebral edema with a 6 mm right to left midline shift. Repeat CT of brain scheduled for Friday. Extensive discussion with neurology Dr. Jean, Palliative care team regarding the results, and decisions for goals of care. Continued right hemiplegia, with spontaneous movement of left upper and lower extremity. 08/24: Repeat CT brain performed today, show mild lead decreased edema still has midline shift. Continued right hemiplegia. 08/25: Sedated and intubated. No acute events overnight. Extensive discussion with Mrs. Chávez, states she wants to have withdrawal of care performed today or tomorrow. She plans to discuss with her children and return and inform me of her plans for comfort measures only. The patient continues on every 6 hours sodium and Osmo. No change in neurological evaluation when off sedation. Objective Vital Signs Date Time Temp Pulse Resp B/P Pulse Ox O2 Delivery O2 Flow Rate FiO2 08/25/16 08:28 95 60 08/25/16 06:00 63 98/64 87/61 08/25/16 04:00 98.3 28 08/24/16 19:00 Mechanical Ventilator 08/23/16 07:00 15.00 Intake and Output 08/24/16 08/24/16 08/25/16 08:00 16:00 00:00 Intake Total 1564 ml 1893 ml 880 ml Output Total 790.0 ml 1575 ml 375 ml Balance 774.0 ml 318 ml 505 ml Result Diagram: 08/24/16 0505 08/24/16 2350 Imaging Last 24 hours Impressions Chest X-Ray 08/23/16 0600 Signed Impressions: Service Date/Time: Tuesday, August 23, 2016 03:20 - CONCLUSION: Right basilar pleural-parenchymal density likely pleural effusion and right basilar consolidation. Viral Frye MD Last Impressions Chest X-Ray 08/21/16 0000 Signed Impressions: Service Date/Time: Sunday, August 21, 2016 05:23 - CONCLUSION: 1. There is no evidence of pneumothorax. Israel Okeefe MD Head CT 08/20/16 1500 Signed Impressions: Service Date/Time: Saturday, August 20, 2016 16:25 - CONCLUSION: 1. No change in large nonhemorrhagic left MCA territory infarction with some mass effect as detailed above. Murphy Persaud Jr., MD Head CTA 08/16/16 0207 Signed Impressions: Service Date/Time: Tuesday, August 16, 2016 04:10 - CONCLUSION: Thrombosed left middle cerebral artery with associated large subacute cerebral infarct. Neftaly Holden MD Neck CTA 08/16/16 0000 Signed Impressions: Service Date/Time: Tuesday, August 16, 2016 04:10 - CONCLUSION: 1. Extracranial carotids are normal. Also normal vertebral arteries. 2. Known malignant right upper lobe mass. Mediastinal and hilar lymphadenopathy seen in the upper chest. Neftaly Holden MD IVC Filter Placement X-Ray 08/16/16 0000 Signed Impressions: Service Date/Time: Tuesday, August 16, 2016 10:30 - CONCLUSION: Uncomplicated inferior vena cava filter placement as above. Israel Okeefe MD Head Magnetic Resonance Angiography 08/16/16 0000 Signed Impressions: Service Date/Time: Tuesday, August 16, 2016 10:27 - CONCLUSION: Markedly abnormal cerebral perfusion corresponding to the large MCA occlusion on the left. Harshad Campbell MD FACR Brain MRI 08/16/16 0000 Signed Impressions: Service Date/Time: Tuesday, August 16, 2016 10:27 - CONCLUSION: Large area of infarction involving the left Sylvian region. There is occlusion of the distal left MCA. There is some collateralization distally. Harshad Campbell MD FACR Lung Biopsy CT 08/15/16 0000 Signed Impressions: Service Date/Time: July 08:22 - CONCLUSION: Uncomplicated CT guided biopsy of the right upper lobe lung mass. Neftaly Rodriguez MD CT Angiography 08/15/16 0000 Signed Impressions: Service Date/Time: July 13:22 - CONCLUSION: 1. There is acute appearing PE in the right lower lobe segmental and left lower lobe subsegmental pulmonary arteries. These PE are new since the prior CT from 07/09/2016. 2. Small right pneumothorax. 3. Right upper lobe pulmonary mass remains present and measures 4.9 cm. There is associated mediastinal, right hilar, and right supraclavicular lymphadenopathy suspicious for lymphatic spread of disease. Neftaly Rodriguez MD Last 48 hours Impressions Chest X-Ray 08/20/16 0600 Signed Impressions: Service Date/Time: Saturday, August 20, 2016 03:45 - CONCLUSION: 1. Improving diffuse right-sided opacity. There is no evidence of pneumothorax. Israel Okeefe MD Head CT 08/19/16 1500 Signed Impressions: Service Date/Time: Friday, August 19, 2016 16:04 - CONCLUSION: Stable brain appearance Neftaly Abad MD Last [address] 08/18/16 0800 Signed Impressions: Service Date/Time: Thursday, August 18, 2016 20:37 - CONCLUSION: Evolving left MCA stroke into an area of encephalomalacia involving the left frontal temporal and parietal lobes. Diane Guzman MD Chest X-Ray 08/18/16 0600 Signed Impressions: Service Date/Time: Thursday, August 18, 2016 03:13 - CONCLUSION: No perceptible pneumothorax. Otherwise no change. Neftaly Holden MD Last [address] 08/17/16 0800 Signed Impressions: Service Date/Time: Wednesday, August 17, 2016 08:23 - CONCLUSION: 1. Evolving left MCA infarct. Galindo Vuong MD Head CTA 08/16/16 0207 Signed Impressions: Service Date/Time: Tuesday, August 16, 2016 04:10 - CONCLUSION: Thrombosed left middle cerebral artery with associated large subacute cerebral infarct. Neftaly Holden MD Neck CTA 08/16/16 0000 Signed Impressions: Service Date/Time: Tuesday, August 16, 2016 04:10 - CONCLUSION: 1. Extracranial carotids are normal. Also normal vertebral arteries. 2. Known malignant right upper lobe mass. Mediastinal and hilar lymphadenopathy seen in the upper chest. Neftaly Holden MD IVC Filter Placement X-Ray 08/16/16 0000 Signed Impressions: Service Date/Time: Tuesday, August 16, 2016 10:30 - CONCLUSION: Uncomplicated inferior vena cava filter placement as above. Israel Okeefe MD Head Magnetic Resonance Angiography 08/16/16 0000 Signed Impressions: Service Date/Time: Tuesday, August 16, 2016 10:27 - CONCLUSION: Markedly abnormal cerebral perfusion corresponding to the large MCA occlusion on the left. Harshad Campbell MD FACR Head CT 08/16/16 0000 Signed Impressions: Service Date/Time: Tuesday, August 16, 2016 00:56 - CONCLUSION: Large left sided cerebral edema as above, appearance most typical of a subacute middle cerebral artery distribution infarct. No bleed or definite mass. Neftaly Holden MD Chest X-Ray 08/16/16 0000 Signed Impressions: Service Date/Time: Tuesday, August 16, 2016 15:33 - CONCLUSION: 1. Uncomplicated line placement. No evidence of pneumothorax. 2. Decreasing right apical pneumothorax Israel Okeefe MD Chest X-Ray 08/16/16 0000 Signed Impressions: Service Date/Time: Tuesday, August 16, 2016 08:15 - CONCLUSION: 1. Interval intubation. 2. Placement of nasogastric tube with the tip in the distal esophagus. This could be advanced at least 7 cm. 3. Mild interval increase in size the small right apical pneumothorax. 4. Increasing opacity in the right lung base most consistent with infiltrate. Barrett Holman MD Brain MRI 08/16/16 0000 Signed Impressions: Service Date/Time: Tuesday, August 16, 2016 10:27 - CONCLUSION: Large area of infarction involving the left Sylvian region. There is occlusion of the distal left MCA. There is some collateralization distally. Harshad Campbell MD FACR Chest X-Ray 08/15/16 1300 Signed Impressions: Service Date/Time: July 12:55 - CONCLUSION: Stable tiny right apical pneumothorax. Neftaly Rodriguez MD Chest X-Ray 08/15/16 1200 Signed Impressions: Service Date/Time: July 11:51 - CONCLUSION: There is a new tiny apical right pneumothorax. Neftaly Rodriguez MD Last 72 hours Impressions Chest X-Ray 08/15/16 1300 Signed Impressions: Service Date/Time: July 12:55 - CONCLUSION: Stable tiny right apical pneumothorax. Neftaly Rodriguez MD Chest X-Ray 08/15/16 1200 Signed Impressions: Service Date/Time: July 11:51 - CONCLUSION: There is a new tiny apical right pneumothorax. Neftaly Rodriguez MD Chest X-Ray 08/15/16 1030 Signed Impressions: Service Date/Time: July 10:20 - CONCLUSION: No pneumothorax following recent right lung biopsy. Neftaly Rodriguez MD Lung Biopsy CT 08/15/16 0000 Signed Impressions: Service Date/Time: July 08:22 - CONCLUSION: Uncomplicated CT guided biopsy of the right upper lobe lung mass. Neftaly Rodriguez MD Chest X-Ray 08/15/16 0000 Signed Impressions: Service Date/Time: July 07:12 - CONCLUSION: 1. No pneumothorax is visualized. Right chest wall [id number] distal tip is at the cavoatrial junction. 2. Right upper lobe pulmonary mass is again visualized. Neftaly Rodriguez MD CT Angiography 08/15/16 0000 Signed Impressions: Service Date/Time: July 13:22 - CONCLUSION: 1. There is acute appearing PE in the right lower lobe segmental and left lower lobe subsegmental pulmonary arteries. These PE are new since the prior CT from 07/09/2016. 2. Small right pneumothorax. 3. Right upper lobe pulmonary mass remains present and measures 4.9 cm. There is associated mediastinal, right hilar, and right supraclavicular lymphadenopathy suspicious for lymphatic spread of disease. Neftaly Rodriguez MD Objective Remarks Cardiac output 4.0 Propofol 50 mcgs Fentanyl 250 mcgs 3% normal saline 25cc/hr 0.9% normal saline at 20cc/hr BP GENERAL: Critical ill-appearing male, sedated and intubated SKIN: Warm and dry. HEAD: Atraumatic. Normocephalic. EYES: Pupils equal and round, reactive 3 mm . No scleral icterus. No injection or drainage. ENT: No nasal bleeding or discharge. Mucous membranes pink and moist. NECK: Trachea midline. No JVD. CARDIOVASCULAR: Normal rate, regular rhythm. S1-S2 RESPIRATORY: Mechanical ventilation .Right chest tube to waterseal , minimal serous drainage noted. No accessory muscle use. Clear to auscultation. Breath sounds equal bilaterally. [id number] noted right chest wall. GASTROINTESTINAL: Abdomen soft, non-tender, nondistended. Hypoactive bowel sounds. OGT infusing MUSCULOSKELETAL: Extremities without clubbing, cyanosis, or edema. No obvious deformities. NEUROLOGICAL: Intubated and sedated, RASS -2. Spontaneous movement of left upper and left lower extremities Urinary Catheter: Yes Simon insert reason: ICU Pt Getting Diuretics Date of Insertion: Aug 16, 2016 Line: Central Venous Catheter Side: Left Location: Jugular A/P Assessment and Plan Neuro: Left MCA territory ischemic infarct with cerebral edema with 6 mm midline shift Encephalopathy Bipolar Disorder with depression/anxiety Sedation with propofol/ fentanyl, daily sedation vacation. Neurochecks per protocol. Neurology, Dr. Jean following , Neurosurgery Dr. Wisdom signed off Continue 3% saline for cerebral edema, hold for serum osmolarity greater than 320. Continue 0.9% normal saline at 20 cc an hour Continue antiplatelet therapy with aspirin. Repeat head CT 08/20 shows some encephalomalacia in the site of left MCA territory infarct, cerebral edema persists. 08/22 CT brain -small increase in cerebral edema with 6 mm midline shift Repeat CT brain 08/24-mild decrease in cerebral edema, midline shift Monitor neuro status with neuro checks per protocol CV: Hypotension-resolved Non-ST elevation MN History of HTN, CAD with MN s/p stent placement(2002) 08/16- 2-D echo with no evidence of R heart strain. Difficult study due to tachycardia. EF 35-40%. Moderate mid to distal inferior hypokinesis and distal lateral hypokinesis. Trace tricuspid regurgitation. PA peak pressure 53 mmHg. Elevated cardiac enzymes/ EKG consistent with non-ST elevation MN. On aspirin 162mg daily. Cardiology following- Dr. May Off Levophed 07/21. Hold all antihypertensives. KVO IV fluids. We will consider adding low-dose beta camila if no further hypotension. Started lipitor 20 mg by mouth daily (08/19). Initiated diuresis with Lasix and 08/21 to mobilize fluid Pulm: Right pneumothorax(resolved) BL PEs on CTA COPD Exacerbation R Lung mass s/p biopsy-poorly differentiated adenocarcinoma R sided chest tube to waterseal Continue mechanical ventilation. Vent bundle, bronchodilators Solumedrol 60mg Q12H Right sided chest tube in place, no air leak noted. End-tidal CO2 monitoring, attempt keeping PCO2 30-35mm Hg Hold C Pap trials till cerebral edema decreases for the next few days. CTA-segmental or subsegmental PTE in the right lower lobe, subsegmental PE left lower lobe, right upper lobe mass 4.9 cm associated with mediastinal, right hilar, right supraclavicular lymphadenopathy suspicious for spread of disease. Renal/: KVO IVF as patient with decreased EF. Starting diuresis with Lasix on 08/21 as patient has been off Levophed for a few days now. Strict intake output, monitor and replete electrolytes, follow BUN/ creatinine. Continue every 12 hours sodium and Osmo ID: Continue with empiric abx (Levaquin). sputum cultures and blood cultures repeated on 08/19 for fevers which may be central versus related to infection though patient does not have leukocytosis. Legionella and Streptococcus urinary antigens negative. Tylenol for temperature greater than 101.0 08/19 urine culture- NGTD 08/19 blood culture- NGTD Heme-onc: DVT/PE/right apical lung mass - poorly differentiated adenocarcinoma on pathology Off anticoagulation with heparin due to large stroke with risk for hemorrhagic transformation. IVC filter placed . Continue aspirin. Started subcutaneous heparin on 08/17 after clearing with neurosurgery. Monitor CBC. Thrombocytopenia noted, being followed by Dr. Murry from Oncology. Will need full anticoagulation when okay with neurosurgery for DVT/ PE. Endocrine: Hx of DM per chart review, not on medications at home SSI per protocol GI: Tube feeds Glucerna 1.5 @goal Prophylaxis with Pepcid BID BM 08/25 DVT prophylaxis: SCDs. SQ heparin Discussed with BINDER LAYER at bedside. 08/23 Palliative care met with family yesterday. Dr. Jean met with family yesterday. Extensive discussion regarding results of CT of the brain, and goals of care. Family understands the poor prognosis and will make decisions regarding tracheostomy and PEG placement next week. 08/24: Updated medical status and CT report with Mrs. Cooley. 08/25: Mrs. Cooley requested to speak to me regarding initiation of comfort measures only. She stated she would like to institute comfort measures only either today or tomorrow, after speaking with her son This patient remains critically ill with one or more organ systems which are or may become a threat to life. I have spent in excess of 33 minutes discontinuously in the care and management of this patient. This time is exclusive of procedures, and includes, but is not limited to, evaluation of the patient, review of the medical record, discussions with family, consultants, nursing staff, or respiratory therapy, and documentation in the medical record. Physician Fadumo Richard MD August 25, 2016 10:43
--- NOTE | 2016-08-25 10:46 | PD.ONC.PN ---
Subjective Subjective Remarks Moving left arm but not purposeful. No movement of right extremities. Objective Data Date Time Temp Pulse Resp B/P Pulse Ox O2 Delivery O2 Flow Rate FiO2 08/25/16 08:28 95 60 08/25/16 08:00 70 08/25/16 06:00 63 98/64 87/61 08/25/16 06:00 63 08/25/16 04:11 100 70 08/25/16 04:00 58 08/25/16 04:00 98.3 59 28 95/62 100 95/56 08/25/16 04:00 70 08/25/16 02:00 60 08/25/16 00:00 59 08/25/16 00:00 99.0 59 28 92/63 100 92/55 08/25/16 00:00 70 08/24/16 23:58 100 70 08/24/16 22:00 60 08/24/16 20:27 100 70 08/24/16 20:00 72 08/24/16 20:00 98.3 79 28 105/67 97 66/59 08/24/16 20:00 70 08/24/16 19:00 99 Mechanical Ventilator 70 08/24/16 18:00 68 08/24/16 18:00 68 98/66 08/24/16 17:51 98 70 08/24/16 16:00 98.8 63 28 97/60 97 08/24/16 16:00 63 08/24/16 16:00 70 08/24/16 14:42 96 70 08/24/16 14:00 68 08/24/16 12:00 76 08/24/16 12:00 70 08/24/16 12:00 98.3 76 28 96/81 99 08/24/16 11:37 95 70 08/25/16 08/25/16 08/25/16 07:00 15:00 23:00 Intake Total 1187 ml Output Total 500 ml Balance 687 ml Result Diagram: 08/24/16 1808 08/24/16 7340 Laboratory Results Laboratory Tests Test 08/24/16 23:50 Sodium Level 145 MEQ/L Serum Osmolality 309 MOSM/KG Administered Medications Medications (Trade) Dose Ordered Sig/Beto Route PRN Reason Start Time Stop Time Status Last Admin Dose Admin Sodium Chloride (NS Flush) 2 ml UNSCH PRN IV FLUSH SEE COMMENTS 08/15/16 07:15 08/20/16 08:34 Sodium Chloride (NS Flush) 2 ml UNSCH PRN IV FLUSH FLUSH AFTER USING IV ACCESS 08/15/16 07:15 08/20/16 08:33 Sodium Chloride (NS Flush) 5 ml Q21D IV FLUSH 08/15/16 07:15 08/23/16 08:18 Sodium Chloride (NS Flush) 5 ml UNSCH PRN IV FLUSH SEE LABEL COMMENTS 08/15/16 07:15 08/20/16 08:34 Sodium Chloride (NS Flush) 2 ml BID IV FLUSH 08/15/16 21:00 08/24/16 22:37 Sodium Chloride (NS Flush) 2 ml UNSCH PRN IV FLUSH FLUSH AFTER USING IV ACCESS 08/15/16 12:15 08/20/16 08:33 Aripiprazole (Abilify) 15 mg HS PO 08/15/16 21:00 08/24/16 22:37 Budesonide/ Formoterol Fumarate (Symbicort 160-4.5 Inh) 2 puff Q12HR INH 08/15/16 21:00 08/20/16 19:41 Gabapentin (Neurontin) 100 mg TID PO 08/15/16 13:00 08/25/16 09:00 Trazodone HCl (Desyrel) 100 mg HS PO 08/15/16 21:00 Hold 08/18/16 19:33 Docusate Sodium (Colace) 100 mg BID PRN PO CONSTIPATION 08/15/16 12:15 08/20/16 13:14 Miscellaneous Information 1 Q361D XX 08/15/16 13:15 08/15/16 19:00 Chlorhexidine Gluconate Taper DAILY@04 TOP 08/16/16 04:00 08/12/17 03:59 08/20/16 02:00 Heparin Sodium/ Dextrose 250 ml @ 0 mls/hr TITRATE IV 08/15/16 13:15 Hold 08/15/16 15:22 Levofloxacin/ Dextrose (Levaquin 750 Mg Premix Inj) 150 ml @ 100 mls/hr Q24H IV 08/15/16 16:00 08/24/16 17:32 Hydralazine HCl (Apresoline Inj) 10 mg Q2HR PRN IV PUSH BP >150/90 08/15/16 16:00 08/16/16 04:36 Famotidine (Pepcid Inj) 20 mg Q12H IV PUSH 08/15/16 16:00 08/25/16 05:55 Phenytoin Sodium (Dilantin Inj) 100 mg Q8HR IV 08/16/16 14:00 08/25/16 06:59 Chlorhexidine Gluconate 15 ml 15 ml BID@08,20 MT 08/16/16 20:00 08/25/16 08:00 Propofol 100 ml @ 0 mls/hr TITRATE IV 08/16/16 15:30 08/25/16 05:55 Norepinephrine Bitartrate 250 ml @ 0 mls/hr TITRATE IV 08/16/16 15:30 08/18/16 14:43 Sodium Chloride 1,000 ml @ 20 mls/hr Q24H IV 08/16/16 15:30 08/25/16 05:00 Fentanyl Citrate (fentaNYL DRIP) 250 ml @ 0 mls/hr TITRATE IV 08/17/16 10:45 08/25/16 05:20 Insulin Aspart (NovoLOG SUPPLEMENTAL SCALE) 1 Q6HR SQ 08/17/16 12:00 08/23/16 18:26 Methylprednisolone Sodium Succinate (SoluMEDROL INJ) 60 mg Q8HR IVP 08/17/16 14:00 08/25/16 06:59 Aspirin 162 mg 162 mg DAILY CHEW 08/17/16 12:15 08/25/16 09:00 Sodium Chloride (Sodium Chloride 3% Inj) 500 ml @ 25 mls/hr Q20H IV 08/18/16 11:15 08/25/16 02:54 Sennosides (Senna Liq) 8.8 mg DAILY OG-TUBE 08/18/16 11:30 08/24/16 09:22 Heparin Sodium (Porcine) (Heparin Inj) 5,000 units Q8HR SQ 08/19/16 22:00 08/25/16 07:00 Atorvastatin Calcium (Lipitor) 20 mg DAILY PO 08/19/16 20:00 08/25/16 09:00 Polyethylene Glycol (Miralax) 17 gm DAILY PO 08/22/16 09:00 08/24/16 09:22 Furosemide (Lasix Inj) 20 mg DAILY IV PUSH 08/23/16 11:30 08/25/16 09:00 Objective Remarks GENERAL: Sedated on vent. SKIN: Warm and dry. HEAD: Normocephalic. EYES: No scleral icterus. No injection or drainage. NECK: Supple, trachea midline. No JVD or lymphadenopathy. LYMPHATIC: No adenopathy. CARDIOVASCULAR: Regular rate and rhythm without murmurs. RESPIRATORY: Breath sounds equal bilaterally. No accessory muscle use. GASTROINTESTINAL: Abdomen soft, slightly distended, +BS EXTREMITIES: No cyanosis, or edema. MUSCULOSKELETAL: Adequate muscle tone. NEUROLOGICAL: moving left arm. Right hemiplegia Assessment/Plan Problem List: (1) Lung cancer Status: Acute Plan: 08/20: pathology shows invasive poorly differentiated adenocarcinoma of likely lung primary. -- Right upper lobe lung mass measured 4.4 cm with mediastinal, right supraclavicular and right hilar adenopathy. --went to [facility] and had PET scan done which did not show any other distant metastasis. -- Based on the CT scan finding he is clinically stage IIIA. --No candidate for treatment at this time due to massive stroke. (2) Pulmonary embolism Status: Acute Plan: --no significant LE edema --has IVC filter. Not candidate for full anticoagulation at this time. --on heparin prophylaxis and antiplatelet therapy. --s/p IVC filter placement (3) Respiratory failure Status: Acute Plan: --on mechanical ventilation --developed a small pneumothorax after the biopsy. ++bilateral subsegmental pulmonary embolism. ++left lower extremity deep venous thrombosis dx more than a month ago (4) Stroke Status: Acute Plan: --CT 08/24 showed slight decreased edema and mass effect. --ns following --Right hemiplegia --Discussed with nursing staff, family is considering withdrawal from vent. Assessment 50y/o male with lung mass admitted with respiratory failure. History: (from original consult): had a port placement on Friday and reportedly doing well, yesterday when the he went for biopsy of lung mass. --was having shortness of breath after the biopsy and he was found to have pneumothorax and he developed worsening respiratory distress. --CT angiogram was done which showed bilateral subsegmental pulmonary embolism. --was admitted to the ICU. A chest tube was placed, reportedly in the evening he developed right-sided paralysis and was found to have a major stroke in the left hemisphere. h/o COPD, LLE DVT, osteopenia Plan 1. Head CT showed decreased edema. Prognosis guarded. 2. Continue supportive care. Kris Murry MD August 25, 2016 10:46
--- NOTE | 2016-08-25 11:07 | RADRPT ---
EXAM DATE/TIME: 08/25/2016 10:47 [facility] COMPARISON: CT PULMONARY ANGIOGRAM, August 15, 2016, 13:22. CHEST SINGLE AP, August 24, 2016, 3:19. INDICATIONS : Respiratory failure MEDICAL HISTORY : Venous insufficiency. Carcinoma, lung. Chronic obstructive pulmonary disease. Diabetes SURGICAL HISTORY : Coronary artery stent. ENCOUNTER: Subsequent ACUITY: 1 week PAIN SCORE: Non-responsive. LOCATION: Bilateral chest FINDINGS: 2 AP portable supine views of the chest were obtained and demonstrate the endotracheal tube in place with tip approximately 4 cm above the bisi. A nasogastric tube is seen coursing through the esophag us into the stomach. The left internal jugular central venous line remains in place. The right-sided implantable port catheter remains in place. There is a right-sided chest tube in place with gas colle ction along the medial right lung base which could represent a small loculated pneumothorax. The mass in the right upper lobe is unchanged. There is hazy opacity remaining at the right lung base with bl unting of the costophrenic angle. The left lung is clear. The heart size is within normal limits. CONCLUSION: 1. The right-sided chest tube remains in place with small gas collection in the medial right lung bas e which could represent a small loculated pneumothorax. 2. Hazy opacity remains the right lung base without change. 3. Right upper lobe mass without change. Barrett Holman MD on August 25, 2016 at 11:01 Board Certified Radiologist. This report was verified electronically.
[2016-08-25 11:59] LABS: BLOOD GAS BASE EXCESS 3.2 mmol/L (-2-2); BLOOD GAS CARBOXYHEMOGLOBIN 1.4 % (0-4); BLOOD GAS HCO3 27 mmol/L (22-26); BLOOD GAS METHEMOGLOBIN 1.3 % (0-2); BLOOD GAS O2 HGB SATURATION 92 % (90-100); BLOOD GAS OXYGEN CONTENT 12.3 Vol % (12.0-20.0); BLOOD GAS PCO2 40 mmHg (38-42); BLOOD GAS PO2 73 mmHg (61-120); BLOOD GAS TOTAL HGB 9.4 G/DL (12.0-16.0); CRITICAL VALUE NO; DRAW SITE ALINE; FIO2 60 %; OXYGEN DEVICE VENTILATOR; STAT NO; TEMP CORR TO 98.6; VENT SETTINGS A/C28/600/PEEP5
[2016-08-25 12:48] LABS: BICARBONATE 30.3 MEQ/L (21.0-32.0); POTASSIUM 4.2 MEQ/L (3.5-5.1)
[2016-08-25] MEDS: LEVOFLOXACIN 750 MG PREMIX INJ 150 ML IV SCH (16:00)
--- NOTE | 2016-08-25 16:25 | HHI.PR ---
Objective Vital Signs Date Time Temp Pulse Resp B/P Pulse Ox O2 Delivery O2 Flow Rate FiO2 08/25/16 16:17 70 08/25/16 14:01 94 60 08/25/16 14:01 85 28 131/96 94 122/65 08/25/16 14:00 65 08/25/16 14:00 89 28 126/68 94 08/25/16 13:30 67 28 89/57 93 82/52 08/25/16 13:00 67 28 91/59 93 83/53 08/25/16 12:30 64 28 89/59 93 82/53 08/25/16 12:22 63 08/25/16 12:21 70 08/25/16 12:00 63 28 88/57 93 81/52 08/25/16 11:47 93 60 08/25/16 11:30 60 28 90/58 93 83/56 08/25/16 11:00 63 28 90/60 93 85/57 08/25/16 11:00 99.0 63 28 90/60 93 85/57 08/25/16 10:30 64 28 92/62 92 92/56 08/25/16 10:00 66 28 102/65 92 103/59 08/25/16 10:00 62 08/25/16 09:00 73 28 103/66 93 106/60 08/25/16 08:30 59 28 94/61 100 91/56 08/25/16 08:28 95 60 08/25/16 08:00 64 08/25/16 08:00 98.2 59 28 94/61 100 89/57 08/25/16 08:00 64 08/25/16 08:00 70 08/25/16 07:30 62 28 94/60 100 89/56 08/25/16 07:00 95 Mechanical Ventilator 70 08/25/16 06:00 63 98/64 87/61 08/25/16 06:00 63 08/25/16 04:11 100 70 08/25/16 04:00 58 08/25/16 04:00 98.3 59 28 95/62 100 95/56 08/25/16 04:00 70 08/25/16 02:00 60 08/25/16 00:00 59 08/25/16 00:00 99.0 59 28 92/63 100 92/55 08/25/16 00:00 70 08/24/16 23:58 100 70 08/24/16 22:00 60 08/24/16 20:27 100 70 08/24/16 20:00 72 08/24/16 20:00 98.3 79 28 105/67 97 66/59 08/24/16 20:00 70 08/24/16 19:00 99 Mechanical Ventilator 70 08/24/16 18:00 68 08/24/16 18:00 68 98/66 08/24/16 17:51 98 70 I/O 08/24/16 08/24/16 08/24/16 08/25/16 08/25/16 08/25/16 07:00 15:00 23:00 07:00 15:00 23:00 Intake Total 1564 ml 1893 ml 880 ml 1187 ml 1303 ml Output Total 790 ml 1575 ml 375 ml 500 ml 1250 ml Balance 774 ml 318 ml 505 ml 687 ml 53 ml IV Total 792 ml 834 ml 661 ml 705 ml 922 ml Tube Feeding 572 ml 859 ml 219 ml 482 ml 381 ml Other 200 ml 200 ml Output Urine Total 500 ml 1525 ml 325 ml 500 ml 1250 ml Tube Feeding Residual Discard 0 ml Chest Tube Drainage Total 290 ml 50 ml 50 ml 0 ml # Bowel Movements 0 0 0 0 1 Result Diagram: 08/24/16 0505 08/25/16 1150 Objective Remarks fully sedated pupil small bilat no movment eith side right now nurse tells me off sedatives 5 min inc rr and moves left not r Assessment and Plan Assessment and Plan dvt hx adenoca lung large left mca ct looks better no major change Israel Pagan am, MD August 25, 2016 16:24
[2016-08-25] MEDS: ARIPiprazole 15 MG TAB PO SCH (20:08)
[2016-08-25] MEDS: SODIUM CHLORIDE 0.9% FLUSH 10 ML FLUSH IV FLUSH PRN (22:21)
[2016-08-26] VITALS (10 sets, daily range): BP systolic 93–105; BP diastolic 48–61; PULSE 61–72; RESP 28; TEMP 99.1–101; O2SAT 94–100
[2016-08-26] MEDS: RESP: ALBUTEROL 2.5 MG/IPRATROPIUM 0.5 MG NEB (SCH) NEB ×3 (00:17→08:51)
[2016-08-26] MEDS: CHLORHEXIDINE GLUCONATE 2 % 1 PACK (2 CLOTHS) TOP SCH (01:37)
[2016-08-26] MEDS: SODIUM CHLOR 0.9% 1000 ML INJ 1,000 ML IV SCH (03:10)
[2016-08-26] MEDS: FAMOTIDINE 20 MG/2 ML VIAL IV PUSH SCH (03:10)
[2016-08-26 04:34] LABS: MEAN CELL VOLUME 93.6 FL (80.0-100.0); MEAN CORPUSCULAR HEMOGLOBIN 30.8 PG (27.0-34.0); MEAN CORPUSCULAR HGB CONC 32.9 % (32.0-36.0); PLATELET COUNT 109 TH/MM3 (150-450); RED BLOOD COUNT 3.09 MIL/MM3 (4.50-5.90); RED CELL DISTRIBUTION WIDTH 14.7 % (11.6-17.2); REVIEW FLAG FINAL; WHITE BLOOD COUNT 8.6 TH/MM3 (4.0-11.0)
[2016-08-26 04:54] LABS: BICARBONATE 30.8 MEQ/L (21.0-32.0); MAGNESIUM 2.3 MG/DL (1.5-2.5); POTASSIUM 4.3 MEQ/L (3.5-5.1)
[2016-08-26] MEDS: INSULIN ASPART SUPPLEMENTAL SCALE SQ SCH (05:08)
[2016-08-26] MEDS: PHENYTOIN INJ 100 MG/2 ML VIAL IV SCH ×2 (05:22→14:00)
[2016-08-26] MEDS: methylPREDNISolone SOD SUCC 125 MG/2 ML VIAL IVP SCH ×2 (05:22→14:00)
[2016-08-26] MEDS: HEPARIN SODIUM - SQ 10,000 UNITS/ML VIAL SQ SCH (05:22)
[2016-08-26] MEDS: SODIUM CHLORIDE 0.9% FLUSH 10 ML FLUSH IV FLUSH PRN (05:22)
[2016-08-26 05:26] LABS: BLOOD GAS BASE EXCESS 3.7 mmol/L (-2-2); BLOOD GAS CARBOXYHEMOGLOBIN 1.7 % (0-4); BLOOD GAS HCO3 28 mmol/L (22-26); BLOOD GAS O2 HGB SATURATION 93 % (90-100); BLOOD GAS OXYGEN CONTENT 12.1 Vol % (12.0-20.0); BLOOD GAS PCO2 44 mmHg (38-42); BLOOD GAS PO2 77 mmHg (61-120); BLOOD GAS TOTAL HGB 9.2 G/DL (12.0-16.0); CRITICAL VALUE NO; DRAW SITE LT RADIAL; FIO2 60 %; NUMBER OF ARTERIAL PUNCTURES 1; OXYGEN DEVICE VENTILATOR; STAT NO; TEMP CORR TO 98.6; ULNAR PULSE PRESENT; VENT SETTINGS AC28/600/+5
[2016-08-26] MEDS: PROPOFOL 1000 MG/100 ML INJ 100 ML IV SCH ×2 (05:30→09:59)
--- NOTE | 2016-08-26 05:54 | RADRPT ---
EXAM DATE/TIME: 08/26/2016 04:10 [facility] COMPARISON: CHEST SINGLE AP, August 25, 2016, 10:47. INDICATIONS : Shortness of breath, possible pulmonary disease. MEDICAL HISTORY : Diabetes mellitus type II. Venous insufficiency. Carcinoma, lung. Chronic obstructive pulmonary SURGICAL HISTORY : Coronary artery stent. ENCOUNTER: Subsequent ACUITY: 2 weeks PAIN SCORE: Non-responsive. LOCATION: Bilateral chest FINDINGS: Single portable frontal view of the chest with the tip of the endotracheal tube 4 cm from the bisi. Nasogastric tube courses off the anterior margin of the film. Right-sided Port-A-Cath. Left-sided ce ntral line. Right-sided thoracostomy tube. No pneumothorax. Consolidation within the right lung base. Tiny right effusion. Heart is normal in size. Left lung is clear. CONCLUSION: No pneumothorax. Developing consolidation within the right lung base. Murphy Persaud Jr., MD on August 26, 2016 at 5:52 Board Certified Radiologist. This report was verified electronically.
[2016-08-26] MEDS: CHLORHEXIDINE 0.12% (ORAL KIT) 15 ML CUP MT SCH (07:25)
[2016-08-26] MEDS: TIOTROPIUM BROMIDE 18 MCG INH INH SCH (07:26)
[2016-08-26] MEDS: BUDESONIDE-FORMOTEROL 160/4.5 MCG INHALER INH SCH (07:26)
--- NOTE | 2016-08-26 08:19 | PD.ONC.PN ---
Subjective Subjective Remarks Sedated on vent. no new events reported. Objective Data Date Time Temp Pulse Resp B/P Pulse Ox O2 Delivery O2 Flow Rate FiO2 08/26/16 08:00 61 08/26/16 08:00 60 08/26/16 08:00 101.0 63 28 100/61 96 101/51 08/26/16 06:00 62 08/26/16 06:00 62 95/58 93/48 08/26/16 04:36 95 60 08/26/16 04:00 99.6 72 28 100/56 95 105/54 08/26/16 04:00 72 08/26/16 04:00 99.6 08/26/16 04:00 60 08/26/16 02:00 63 08/26/16 00:18 95 60 08/26/16 00:00 60 08/26/16 00:00 99.1 63 28 94/58 94 102/56 08/26/16 00:00 63 08/25/16 22:00 64 08/25/16 20:30 98.2 08/25/16 20:15 98 60 08/25/16 20:00 101.0 64 28 91/56 95 97/54 08/25/16 20:00 60 08/25/16 20:00 64 08/25/16 19:00 94 Mechanical Ventilator 60 08/25/16 18:18 66 08/25/16 18:00 63 56/ 08/25/16 17:16 95 60 08/25/16 17:12 63 56/ 08/25/16 16:29 99.1 85 28 108/62 94 97/54 08/25/16 16:28 63 08/25/16 16:17 70 08/25/16 14:01 94 60 08/25/16 14:01 85 28 131/96 94 122/65 08/25/16 14:00 65 08/25/16 14:00 89 28 126/68 94 08/25/16 13:30 67 28 89/57 93 82/52 08/25/16 13:00 67 28 91/59 93 83/53 08/25/16 12:30 64 28 89/59 93 82/53 08/25/16 12:22 63 08/25/16 12:21 70 08/25/16 12:00 63 28 88/57 93 81/52 08/25/16 11:47 93 60 08/25/16 11:30 60 28 90/58 93 83/56 08/25/16 11:00 63 28 90/60 93 85/57 08/25/16 11:00 99.0 63 28 90/60 93 85/57 08/25/16 10:30 64 28 92/62 92 92/56 08/25/16 10:00 66 28 102/65 92 103/59 08/25/16 10:00 62 08/25/16 09:00 73 28 103/66 93 106/60 08/25/16 08:30 59 28 94/61 100 91/56 08/25/16 08:28 95 60 08/26/16 08/26/16 08/26/16 07:00 15:00 23:00 Intake Total 900 ml Output Total 360 ml Balance 540 ml Result Diagram: 08/26/16 0410 08/26/16 0410 Laboratory Results Laboratory Tests Test 08/25/16 08/25/16 08/25/16 08/26/16 11:48 11:50 23:30 04:10 Blood Gas Puncture Site HERMELINDA Blood Gas Patient Temperature 98.6 Blood Gas HCO3 27 mmol/L Blood Gas Base Excess 3.2 mmol/L Blood Gas Oxygen Saturation 92 % Arterial Blood pH 7.44 Arterial Blood Partial 40 mmHg Pressure CO2 Arterial Blood Partial 73 mmHg Pressure O2 Arterial Blood Oxygen Content 12.3 Vol % Arterial Blood 1.4 % Carboxyhemoglobin Arterial Blood Methemoglobin 1.3 % Blood Gas Hemoglobin 9.4 G/DL Oxygen Delivery Device VENTILATOR Blood Gas Ventilator Setting A/C28/600/PEEP5 Blood Gas Inspired Oxygen 60 % Sodium Level 145 MEQ/L 146 MEQ/L 146 MEQ/L Potassium Level 4.2 MEQ/L 4.3 MEQ/L Chloride Level 109 MEQ/L 109 MEQ/L Carbon Dioxide Level 30.3 MEQ/L 30.8 MEQ/L Anion Gap 6 MEQ/L 6 MEQ/L Blood Urea Nitrogen 31 MG/DL 32 MG/DL Creatinine 0.78 MG/DL 0.87 MG/DL Estimat Glomerular Filtration 105 ML/MIN 93 ML/MIN Rate Random Glucose 119 MG/DL 117 MG/DL Serum Osmolality 307 MOSM/KG 308 MOSM/KG 308 MOSM/KG Calcium Level 7.8 MG/DL 7.8 MG/DL White Blood Count 8.6 TH/MM3 Red Blood Count 3.09 MIL/MM3 Hemoglobin 9.5 GM/DL Hematocrit 29.0 % Mean Corpuscular Volume 93.6 FL Mean Corpuscular Hemoglobin 30.8 PG Mean Corpuscular Hemoglobin 32.9 % Concent Red Cell Distribution Width 14.7 % Platelet Count 109 TH/MM3 Mean Platelet Volume 9.6 FL Phosphorus Level 3.2 MG/DL Magnesium Level 2.3 MG/DL Test 08/26/16 05:15 Blood Gas Puncture Site LT RADIAL Blood Gas Patient Temperature 98.6 Blood Gas HCO3 28 mmol/L Blood Gas Base Excess 3.7 mmol/L Blood Gas Oxygen Saturation 93 % Arterial Blood pH 7.42 Arterial Blood Partial 44 mmHg Pressure CO2 Arterial Blood Partial 77 mmHg Pressure O2 Arterial Blood Oxygen Content 12.1 Vol % Arterial Blood 1.7 % Carboxyhemoglobin Arterial Blood Methemoglobin 1.0 % Blood Gas Hemoglobin 9.2 G/DL Oxygen Delivery Device VENTILATOR Blood Gas Ventilator Setting AC28/600/+5 Blood Gas Inspired Oxygen 60 % Imaging Studies Last 24 hours Impressions Chest X-Ray 08/26/16 0600 Signed Impressions: Service Date/Time: Friday, August 26, 2016 04:10 - CONCLUSION: No pneumothorax. Developing consolidation within the right lung base. Murphy Persaud Jr., MD Administered Medications Medications (Trade) Dose Ordered Sig/Beto Route PRN Reason Start Time Stop Time Status Last Admin Dose Admin Sodium Chloride (NS Flush) 2 ml UNSCH PRN IV FLUSH SEE COMMENTS 08/15/16 07:15 08/26/16 05:22 Sodium Chloride (NS Flush) 2 ml UNSCH PRN IV FLUSH FLUSH AFTER USING IV ACCESS 08/15/16 07:15 08/20/16 08:33 Sodium Chloride (NS Flush) 5 ml Q21D IV FLUSH 08/15/16 07:15 08/23/16 08:18 Sodium Chloride (NS Flush) 5 ml UNSCH PRN IV FLUSH SEE LABEL COMMENTS 08/15/16 07:15 08/20/16 08:34 Sodium Chloride (NS Flush) 2 ml BID IV FLUSH 08/15/16 21:00 08/25/16 20:01 Sodium Chloride (NS Flush) 2 ml UNSCH PRN IV FLUSH FLUSH AFTER USING IV ACCESS 08/15/16 12:15 08/20/16 08:33 Aripiprazole (Abilify) 15 mg HS PO 08/15/16 21:00 08/25/16 20:08 Budesonide/ Formoterol Fumarate (Symbicort 160-4.5 Inh) 2 puff Q12HR INH 08/15/16 21:00 08/20/16 19:41 Gabapentin (Neurontin) 100 mg TID PO 08/15/16 13:00 08/25/16 16:45 Trazodone HCl (Desyrel) 100 mg HS PO 08/15/16 21:00 Hold 08/18/16 19:33 Docusate Sodium (Colace) 100 mg BID PRN PO CONSTIPATION 08/15/16 12:15 08/20/16 13:14 Miscellaneous Information 1 Q361D XX 08/15/16 13:15 08/15/16 19:00 Chlorhexidine Gluconate Taper DAILY@04 TOP 08/16/16 04:00 08/12/17 03:59 08/20/16 02:00 Heparin Sodium/ Dextrose 250 ml @ 0 mls/hr TITRATE IV 08/15/16 13:15 Hold 08/15/16 15:22 Levofloxacin/ Dextrose (Levaquin 750 Mg Premix Inj) 150 ml @ 100 mls/hr Q24H IV 08/15/16 16:00 08/25/16 16:00 Hydralazine HCl (Apresoline Inj) 10 mg Q2HR PRN IV PUSH BP >150/90 08/15/16 16:00 08/16/16 04:36 Famotidine (Pepcid Inj) 20 mg Q12H IV PUSH 08/15/16 16:00 08/26/16 03:10 Phenytoin Sodium (Dilantin Inj) 100 mg Q8HR IV 08/16/16 14:00 08/26/16 05:22 Chlorhexidine Gluconate 15 ml 15 ml BID@08,20 MT 08/16/16 20:00 08/26/16 07:25 Propofol 100 ml @ 0 mls/hr TITRATE IV 08/16/16 15:30 08/26/16 05:30 Norepinephrine Bitartrate 250 ml @ 0 mls/hr TITRATE IV 08/16/16 15:30 08/18/16 14:43 Sodium Chloride 1,000 ml @ 20 mls/hr Q24H IV 08/16/16 15:30 08/26/16 03:10 Fentanyl Citrate (fentaNYL DRIP) 250 ml @ 0 mls/hr TITRATE IV 08/17/16 10:45 08/25/16 23:55 Insulin Aspart (NovoLOG SUPPLEMENTAL SCALE) 1 Q6HR SQ 08/17/16 12:00 08/23/16 18:26 Methylprednisolone Sodium Succinate (SoluMEDROL INJ) 60 mg Q8HR IVP 08/17/16 14:00 08/26/16 05:22 Aspirin 162 mg 162 mg DAILY CHEW 08/17/16 12:15 08/25/16 09:00 Sodium Chloride (Sodium Chloride 3% Inj) 500 ml @ 25 mls/hr Q20H IV 08/18/16 11:15 08/25/16 22:26 Sennosides (Senna Liq) 8.8 mg DAILY OG-TUBE 08/18/16 11:30 08/24/16 09:22 Heparin Sodium (Porcine) (Heparin Inj) 5,000 units Q8HR SQ 08/19/16 22:00 08/26/16 05:22 Atorvastatin Calcium (Lipitor) 20 mg DAILY PO 08/19/16 20:00 08/25/16 09:00 Polyethylene Glycol (Miralax) 17 gm DAILY PO 08/22/16 09:00 08/24/16 09:22 Acetaminophen (Tylenol 650 Mg/ 20 ml Liq) 650 mg Q6H PRN PO TEMPERATURE > 101 F 08/22/16 08:00 08/25/16 21:11 Furosemide (Lasix Inj) 20 mg DAILY IV PUSH 08/23/16 11:30 08/25/16 09:00 Objective Remarks GENERAL: Sedated SKIN: Warm and dry. HEAD: Normocephalic. EYES: No scleral icterus. No injection or drainage. NECK: Supple, trachea midline. No JVD or lymphadenopathy. LYMPHATIC: No adenopathy. CARDIOVASCULAR: Regular rate and rhythm without murmurs. RESPIRATORY: Breath sounds equal bilaterally. No accessory muscle use. Vent assisted GASTROINTESTINAL: Abdomen soft, slightly distended EXTREMITIES: No cyanosis, or edema. MUSCULOSKELETAL: Adequate muscle tone. 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 -- Right upper lobe lung mass measured 4.4 cm with mediastinal, right supraclavicular and right hilar adenopathy. --went to [facility] and had PET scan done which did not show any other distant metastasis. -- Based on the CT scan finding he is clinically stage IIIA. --No candidate for treatment at this time due to massive stroke. (2) Pulmonary embolism Status: Acute Plan: --no significant LE edema --has IVC filter. Not candidate for full anticoagulation at this time. --on heparin prophylaxis and antiplatelet therapy. --s/p IVC filter placement (3) Respiratory failure Status: Acute Plan: --on mechanical ventilation --developed a small pneumothorax after the biopsy. ++bilateral subsegmental pulmonary embolism. ++left lower extremity deep venous thrombosis dx more than a month ago (4) Stroke Status: Acute Plan: --No significant improvement clinically. --CT 5/6 showed slight decreased edema and mass effect. --ns following --Right hemiplegia --Discussed with nursing staff, family is considering withdrawal from vent. They will meet with palliative care meds today. Assessment 50y/o male with lung mass admitted with respiratory failure. History: (from original consult): had a port placement on Friday and reportedly doing well, yesterday when the he went for biopsy of lung mass. --was having shortness of breath after the biopsy and he was found to have pneumothorax and he developed worsening respiratory distress. --CT angiogram was done which showed bilateral subsegmental pulmonary embolism. --was admitted to the ICU. A chest tube was placed, reportedly in the evening he developed right-sided paralysis and was found to have a major stroke in the left hemisphere. h/o COPD, LLE DVT, osteopenia Plan 1. Family is thinking about withdrawal from vent. prognosis is poor. 2. Continue supportive care. Kris Murry MD August 26, 2016 08:19
[2016-08-26] MEDS: SODIUM CHLORIDE 0.9% FLUSH 10 ML FLUSH IV FLUSH SCH (08:28)
[2016-08-26] MEDS: ATORVASTATIN 20 MG TAB PO SCH (08:36)
[2016-08-26] MEDS: ASPIRIN 81 MG CHEW TAB CHEW SCH (08:36)
[2016-08-26] MEDS: GABAPENTIN 100 MG CAP PO SCH (08:37)
[2016-08-26] MEDS: FUROSEMIDE 20 MG/2 ML VIAL IV PUSH SCH (08:37)
[2016-08-26] MEDS: SENNOSIDES SYRUP 8.8 MG/5 ML CUP OG-TUBE SCH (08:37)
[2016-08-26] MEDS: POLYETHYLENE GLYCOL 17 GM PKG PO SCH (08:37)
[2016-08-26] MEDS: fentaNYL DRIP 250 ML IV SCH (10:03)
[2016-08-26] MEDS ORDERED: fentaNYL DRIP 250 ML IV SCH (11:30)
[2016-08-26] MEDS ORDERED: HYDROmorphone HCL PF 2 MG/ML VIAL IV ONE ×2 (11:30→11:45)
[2016-08-26] MEDS ORDERED: LORazepam 2 MG/ML VIAL IV ONE ×2 (11:30→11:45)
--- NOTE | 2016-08-26 11:41 | HHI.CCPN ---
Subjective Remarks/Hospital Course 08/15: Mr. Cooley is a 50 y/o CM with a PMHx of COPD who continues to smoke and is s/p R lung biopsy secondary to a recently found lung mass presenting with dyspnea. Prior to his biopsy today, he was being treated as an outpatient with a Medrol dose pack with Levaquin for a COPD exacerbation. He endorsed dyspnea on exertion today, but denied any fevers, chest pain, wheezing, cough, or LE edema/tenderness. He has a history of LLE DVT diagnosed in 07/05, but has been off his anticoagulation for approximately 11 days (Previously on Xarelto). He had a port placed 2 days ago and lung biopsy today. He has been short of breath since 1 day prior to the procedure. After his biopsy, he was found to have a small apical pneumothorax on CXR, diaphoretic, and tachypneic with hypoxia of 81 % on room air. He was placed on 4L and improved to 85%. He was then placed on a non-rebreather and transferred to the ICU. On arrival he was tachypneic with oxygen saturation in the upper 80s. CTA showed acute pulmonary embolisms of the BL lower lobes with a small R pneumothorax. Therefore a R sided chest tube was placed and heparin drip without bolus was initiated. The patient has been continued on Levaquin ABX, has been give steroids with multiple breathing treatments, and has been placed on BiPAP. 08/16: Patient was noted to have an elevated troponin and was diagnosed to have a non-ST elevation DC last evening. He was on BiPAP at the time with full facemask. It was noticed that he was not moving the right side of his body when he was turned to administer rectal aspirin and subsequent head CT and CTA revealed significant edema in the left cerebral hemisphere and occluded left MCA with thrombus. Neurology was contacted by Dr. Martínez and due to concern for hemorrhagic transformation heparin was held. Dr. Martínez discussed the case with Dr. Okeefe from interventional radiology who did not feel that the patient was a good candidate for clot retrieval due to high risk for hemorrhagic transformation given the amount of cerebral edema and extent of infarct. Patient was given mannitol. This morning when I evaluated patient was in BiPAP with full facemask with a dense right hemiplegia with some spontaneous movement involving his left upper extremity. He was intubated and placed on mechanical ventilation for airway protection and hyperventilation in view of cerebral edema as well as for borderline respiratory status. Subsequently he underwent MRI brain which showed large left MCA territory infarct with some collateral flow. IVC filter was placed by interventional radiology after discussion with Dr. Murry, his oncologist as patient is now off heparin and is at risk for recurrent PE. 08/17: Remains sedated, orally intubated on mechanical ventilation. On 3% saline overnight. Head CT done this morning shows slight increase in cerebral edema in the area of left MCA territory infarct which appears more hypodense. Remains on Levophed 10mcg/min. Moves left side spontaneously however not following commands. Right hemiplegia persists 08/18: Remains sedated, orally intubated on mechanical ventilation. Remains on 3 % saline, Levophed. Awakens on lightening sedation and moves left side spontaneously. Right hemiplegia persists though overnight cashier RN noticed some flickering movement in his fingers on the right. 08/19: Remains sedated, orally intubated on mechanical ventilation. Off Levophed. Awakens on lightening sedation and moves left side spontaneously. Right hemiplegia persists. Tolerating tube feeds. Spiked temperatures overnight. Parr cultures ordered. Suspect central fever versus infection. On Levaquin currently. 08/20: Remains sedated, orally intubated on mechanical ventilation. Awakens on lightening sedation and moves left side spontaneously. Right hemiplegia persists. Tolerating tube feeds. 08/21: Sedated, arousable, orally intubated on mechanical ventilation. Right hemiplegia persists. Moving left side spontaneously. Tolerating tube feeds. Starting diuresis with Lasix in view of positive fluid balance to mobilize fluid. 08/22:TMax 101.0. Repeat cultures performed .Patient continues on 3% normal saline, CT brain pending this a.m.. Patient moving left upper and lower extremities, spontaneously. No vasopressors needed, hemodynamically stable. Continued right hemiplegia. Patient's at bedside, requesting patient be made DNR and this a.m.. 08/23: Tmax 98.8. CT brain performed yesterday revealed slight increase in cerebral edema with a 6 mm right to left midline shift. Repeat CT of brain scheduled for Friday. Extensive discussion with neurology Dr. Jean, Palliative care team regarding the results, and decisions for goals of care. Continued right hemiplegia, with spontaneous movement of left upper and lower extremity. 08/24: Repeat CT brain performed today, show mild lead decreased edema still has midline shift. Continued right hemiplegia. 08/25: Sedated and intubated. No acute events overnight. Extensive discussion with Mrs. Chávez, states she wants to have withdrawal of care performed today or tomorrow. She plans to discuss with her children and return and inform me of her plans for comfort measures only. The patient continues on every 6 hours sodium and Osmo. No change in neurological evaluation when off sedation. 08/26: The patient remains sedated, on propofol. The patient continues on 3% normal saline at 25 cc/hr. Entire family at bedside, palliative team present. Request comfort measures only, plans for withdrawal this afternoon. Objective Vital Signs Date Time Temp Pulse Resp B/P Pulse Ox O2 Delivery O2 Flow Rate FiO2 08/26/16 10:00 70 08/26/16 08:57 100 Ventilator 70 08/26/16 08:00 101.0 28 100/61 101/51 08/23/16 07:00 15.00 Intake and Output 08/25/16 08/25/16 08/25/16 07:59 15:59 23:59 Intake Total 1187 ml 1303 ml 1601 ml Output Total 500 ml 1250 ml 750 ml Balance 687 ml 53 ml 851 ml Result Diagram: 08/26/16 0410 08/26/16 0410 Other Results Laboratory Tests Test 08/25/16 08/26/16 11:48 05:15 Blood Gas Puncture Site HERMELINDA LT RADIAL Blood Gas Patient Temperature 98.6 98.6 Blood Gas HCO3 27 mmol/L 28 mmol/L (22-26) (22-26) Blood Gas Base Excess 3.2 mmol/L 3.7 mmol/L (-2-2) (-2-2) Blood Gas Oxygen Saturation 92 % (90-100) 93 % (90-100) Arterial Blood pH 7.44 7.42 (7.380-7.420) (7.380-7.420) Arterial Blood Partial 40 mmHg (38-42) 44 mmHg (38-42) Pressure CO2 Arterial Blood Partial 73 mmHg 77 mmHg Pressure O2 (61-120) (61-120) Arterial Blood Oxygen Content 12.3 Vol % 12.1 Vol % (12.0-20.0) (12.0-20.0) Arterial Blood 1.4 % (0-4) 1.7 % (0-4) Carboxyhemoglobin Arterial Blood Methemoglobin 1.3 % (0-2) 1.0 % (0-2) Blood Gas Hemoglobin 9.4 G/DL 9.2 G/DL (12.0-16.0) (12.0-16.0) Oxygen Delivery Device VENTILATOR VENTILATOR Blood Gas Ventilator Setting A/C28/600/PEEP5 AC28/600/+5 Blood Gas Inspired Oxygen 60 % 60 % Imaging Last 24 hours Impressions Chest X-Ray 08/23/16 0600 Signed Impressions: Service Date/Time: Tuesday, August 23, 2016 03:20 - CONCLUSION: Right basilar pleural-parenchymal density likely pleural effusion and right basilar consolidation. Viral Frye MD Last Impressions Chest X-Ray 08/21/16 0000 Signed Impressions: Service Date/Time: Sunday, August 21, 2016 05:23 - CONCLUSION: 1. There is no evidence of pneumothorax. Israel Okeefe MD Head CT 08/20/16 1500 Signed Impressions: Service Date/Time: Saturday, August 20, 2016 16:25 - CONCLUSION: 1. No change in large nonhemorrhagic left MCA territory infarction with some mass effect as detailed above. Murphy Persaud Jr., MD Head CTA 08/16/16 0207 Signed Impressions: Service Date/Time: Tuesday, August 16, 2016 04:10 - CONCLUSION: Thrombosed left middle cerebral artery with associated large subacute cerebral infarct. Neftaly Holden MD Neck CTA 08/16/16 0000 Signed Impressions: Service Date/Time: Tuesday, August 16, 2016 04:10 - CONCLUSION: 1. Extracranial carotids are normal. Also normal vertebral arteries. 2. Known malignant right upper lobe mass. Mediastinal and hilar lymphadenopathy seen in the upper chest. Neftaly Holden MD IVC Filter Placement X-Ray 08/16/16 0000 Signed Impressions: Service Date/Time: Tuesday, August 16, 2016 10:30 - CONCLUSION: Uncomplicated inferior vena cava filter placement as above. Israel Okeefe MD Head Magnetic Resonance Angiography 08/16/16 0000 Signed Impressions: Service Date/Time: Tuesday, August 16, 2016 10:27 - CONCLUSION: Markedly abnormal cerebral perfusion corresponding to the large MCA occlusion on the left. Harshad Campbell MD FACR Brain MRI 08/16/16 0000 Signed Impressions: Service Date/Time: Tuesday, August 16, 2016 10:27 - CONCLUSION: Large area of infarction involving the left Sylvian region. There is occlusion of the distal left MCA. There is some collateralization distally. Harshad Campbell MD FACR Lung Biopsy CT 08/15/16 0000 Signed Impressions: Service Date/Time: July 08:22 - CONCLUSION: Uncomplicated CT guided biopsy of the right upper lobe lung mass. Neftaly Rodriguez MD CT Angiography 08/15/16 0000 Signed Impressions: Service Date/Time: July 13:22 - CONCLUSION: 1. There is acute appearing PE in the right lower lobe segmental and left lower lobe subsegmental pulmonary arteries. These PE are new since the prior CT from 07/09/2016. 2. Small right pneumothorax. 3. Right upper lobe pulmonary mass remains present and measures 4.9 cm. There is associated mediastinal, right hilar, and right supraclavicular lymphadenopathy suspicious for lymphatic spread of disease. Neftaly Rodriguez MD Last 48 hours Impressions Chest X-Ray 08/20/16 0600 Signed Impressions: Service Date/Time: Saturday, August 20, 2016 03:45 - CONCLUSION: 1. Improving diffuse right-sided opacity. There is no evidence of pneumothorax. Israel Okeefe MD Head CT 08/19/16 1500 Signed Impressions: Service Date/Time: Friday, August 19, 2016 16:04 - CONCLUSION: Stable brain appearance Neftaly Abad MD Last [address] 08/18/16 0800 Signed Impressions: Service Date/Time: Thursday, August 18, 2016 20:37 - CONCLUSION: Evolving left MCA stroke into an area of encephalomalacia involving the left frontal temporal and parietal lobes. Diane Guzman MD Chest X-Ray 08/18/16 0600 Signed Impressions: Service Date/Time: Thursday, August 18, 2016 03:13 - CONCLUSION: No perceptible pneumothorax. Otherwise no change. Neftaly Holden MD Last [address] 08/17/16 0800 Signed Impressions: Service Date/Time: Wednesday, August 17, 2016 08:23 - CONCLUSION: 1. Evolving left MCA infarct. Galindo Vuong MD Head CTA 08/16/16 0207 Signed Impressions: Service Date/Time: Tuesday, August 16, 2016 04:10 - CONCLUSION: Thrombosed left middle cerebral artery with associated large subacute cerebral infarct. Neftaly Holden MD Neck CTA 08/16/16 0000 Signed Impressions: Service Date/Time: Tuesday, August 16, 2016 04:10 - CONCLUSION: 1. Extracranial carotids are normal. Also normal vertebral arteries. 2. Known malignant right upper lobe mass. Mediastinal and hilar lymphadenopathy seen in the upper chest. Neftaly Holden MD IVC Filter Placement X-Ray 08/16/16 Signed Impressions: Service Date/Time: Tuesday, August 16, 2016 10:30 - CONCLUSION: Uncomplicated inferior vena cava filter placement as above. Israel Okeefe MD Head Magnetic Resonance Angiography 08/16/16 Signed Impressions: Service Date/Time: Tuesday, August 16, 2016 10:27 - CONCLUSION: Markedly abnormal cerebral perfusion corresponding to the large MCA occlusion on the left. Harsahd Campbell MD FACR Head CT 08/16/16 0000 Signed Impressions: Service Date/Time: Tuesday, August 16, 2016 00:56 - CONCLUSION: Large left sided cerebral edema as above, appearance most typical of a subacute middle cerebral artery distribution infarct. No bleed or definite mass. Neftaly Holden MD Chest X-Ray 08/16/16 Signed Impressions: Service Date/Time: Tuesday, August 16, 2016 15:33 - CONCLUSION: 1. Uncomplicated line placement. No evidence of pneumothorax. 2. Decreasing right apical pneumothorax Israel Okeefe MD Chest X-Ray 08/16/16 0000 Signed Impressions: Service Date/Time: Tuesday, August 16, 2016 08:15 - CONCLUSION: 1. Interval intubation. 2. Placement of nasogastric tube with the tip in the distal esophagus. This could be advanced at least 7 cm. 3. Mild interval increase in size the small right apical pneumothorax. 4. Increasing opacity in the right lung base most consistent with infiltrate. Barrett Holman MD Brain MRI 08/16/16 0000 Signed Impressions: Service Date/Time: Tuesday, August 16, 2016 10:27 - CONCLUSION: Large area of infarction involving the left Sylvian region. There is occlusion of the distal left MCA. There is some collateralization distally. Harshad Campbell MD FACR Chest X-Ray 08/15/16 1300 Signed Impressions: Service Date/Time: July 12:55 - CONCLUSION: Stable tiny right apical pneumothorax. Neftaly Rodriguez MD Chest X-Ray 08/15/16 1200 Signed Impressions: Service Date/Time: July 11:51 - CONCLUSION: There is a new tiny apical right pneumothorax. Neftaly Rodriguez MD Last 72 hours Impressions Chest X-Ray 08/15/16 1300 Signed Impressions: Service Date/Time: July 12:55 - CONCLUSION: Stable tiny right apical pneumothorax. Neftaly Rodriguez MD Chest X-Ray 08/15/16 1200 Signed Impressions: Service Date/Time: July 11:51 - CONCLUSION: There is a new tiny apical right pneumothorax. Neftaly Rodriguez MD Chest X-Ray 08/15/16 1030 Signed Impressions: Service Date/Time: July 10:20 - CONCLUSION: No pneumothorax following recent right lung biopsy. Neftaly Rodriguez MD Lung Biopsy CT 08/15/16 0000 Signed Impressions: Service Date/Time: July 08:22 - CONCLUSION: Uncomplicated CT guided biopsy of the right upper lobe lung mass. Neftaly Rodriguez MD Chest X-Ray 08/15/16 0000 Signed Impressions: Service Date/Time: July 07:12 - CONCLUSION: 1. No pneumothorax is visualized. Right chest wall [id number] distal tip is at the cavoatrial junction. 2. Right upper lobe pulmonary mass is again visualized. Neftaly Rodriguez MD CT Angiography 08/15/16 0000 Signed Impressions: Service Date/Time: July 13:22 - CONCLUSION: 1. There is acute appearing PE in the right lower lobe segmental and left lower lobe subsegmental pulmonary arteries. These PE are new since the prior CT from 07/09/2016. 2. Small right pneumothorax. 3. Right upper lobe pulmonary mass remains present and measures 4.9 cm. There is associated mediastinal, right hilar, and right supraclavicular lymphadenopathy suspicious for lymphatic spread of disease. Neftaly Rodriguez MD Objective Remarks Propofol 50 mcgs 3% normal saline 25cc/hr 0.9% normal saline at 20cc/hr BP108/66 P 70 O2 sat 95% GENERAL: Critical ill-appearing male, sedated and intubated SKIN: Warm and dry. HEAD: Atraumatic. Normocephalic. EYES: Pupils equal and round, reactive 3 mm . No scleral icterus. No injection or drainage. ENT: No nasal bleeding or discharge. Mucous membranes pink and moist. NECK: Trachea midline. No JVD. CARDIOVASCULAR: Normal rate, regular rhythm. S1-S2 RESPIRATORY: Mechanical ventilation .Right chest tube to waterseal , minimal serous drainage noted. No accessory muscle use. Clear to auscultation. Breath sounds equal bilaterally. [id number] noted right chest wall. GASTROINTESTINAL: Abdomen soft, non-tender, nondistended. Hypoactive bowel sounds. OGT with tube feeds infusing MUSCULOSKELETAL: Extremities without clubbing, cyanosis, or edema. No obvious deformities. NEUROLOGICAL: Intubated and sedated, RASS -2. Spontaneous movement of left upper and left lower extremities Date of Insertion: Aug 16, 2016 Line: Central Venous Catheter Side: Left Location: Jugular A/P Assessment and Plan Neuro: Left MCA territory ischemic infarct with cerebral edema with 6 mm midline shift Encephalopathy Bipolar Disorder with depression/anxiety Sedation with propofol/ fentanyl, daily sedation vacation. Neurochecks per protocol. Neurology, Dr. Jean following , Neurosurgery Dr. Wisdom signed off Continue 3% saline for cerebral edema, hold for serum osmolarity greater than 320. Continue 0.9% normal saline at 20 cc an hour Continue antiplatelet therapy with aspirin. Repeat head CT 08/20 shows some encephalomalacia in the site of left MCA territory infarct, cerebral edema persists. 08/22 CT brain -small increase in cerebral edema with 6 mm midline shift Repeat CT brain 08/24-mild decrease in cerebral edema, midline shift Monitor neuro status with neuro checks per protocol CV: Hypotension-resolved Non-ST elevation DC History of HTN, CAD with DC s/p stent placement(2002) 08/16- 2-D echo with no evidence of R heart strain. Difficult study due to tachycardia. EF 35-40%. Moderate mid to distal inferior hypokinesis and distal lateral hypokinesis. Trace tricuspid regurgitation. PA peak pressure 53 mmHg. Elevated cardiac enzymes/ EKG consistent with non-ST elevation DC. On aspirin 162mg daily. Cardiology following- Dr. May Off Levophed 07/21. Hold all antihypertensives. KVO IV fluids. We will consider adding low-dose beta camila if no further hypotension. Started lipitor 20 mg by mouth daily (08/19). Initiated diuresis with Lasix and 08/21 to mobilize fluid Pulm: Right pneumothorax(resolved) BL PEs on CTA COPD Exacerbation R Lung mass s/p biopsy-poorly differentiated adenocarcinoma R sided chest tube to waterseal Continue mechanical ventilation. Vent bundle, bronchodilators Solumedrol 60mg Q12H Right sided chest tube in place, no air leak noted. End-tidal CO2 monitoring, attempt keeping PCO2 30-35mm Hg Hold C Pap trials till cerebral edema decreases for the next few days. CTA-segmental or subsegmental PTE in the right lower lobe, subsegmental PE left lower lobe, right upper lobe mass 4.9 cm associated with mediastinal, right hilar, right supraclavicular lymphadenopathy suspicious for spread of disease. Renal/: KVO IVF as patient with decreased EF. Starting diuresis with Lasix on 08/21 as patient has been off Levophed for a few days now. Strict intake output, monitor and replete electrolytes, follow BUN/ creatinine. Continue every 12 hours sodium and Osmo ID: Continue with empiric abx (Levaquin). sputum cultures and blood cultures repeated on 08/19 for fevers which may be central versus related to infection though patient does not have leukocytosis. Legionella and Streptococcus urinary antigens negative. Tylenol for temperature greater than 101.0 08/19 urine culture- NGTD 08/19 blood culture- NGTD Heme-onc: DVT/PE/right apical lung mass - poorly differentiated adenocarcinoma on pathology Off anticoagulation with heparin due to large stroke with risk for hemorrhagic transformation. IVC filter placed . Continue aspirin. Started subcutaneous heparin on 08/17 after clearing with neurosurgery. Monitor CBC. Thrombocytopenia noted, being followed by Dr. Murry from Oncology. Will need full anticoagulation when okay with neurosurgery for DVT/ PE. Endocrine: Hx of DM per chart review, not on medications at home SSI per protocol GI: Tube feeds Glucerna 1.5 @goal Prophylaxis with Pepcid BID BM 08/25 DVT prophylaxis: SCDs. SQ heparin Discussed with SENIOR CYBER INTELLIGENCE ANALYST at bedside. 08/23 Palliative care met with family yesterday. Dr. Jean met with family yesterday. Extensive discussion regarding results of CT of the brain, and goals of care. Family understands the poor prognosis and will make decisions regarding tracheostomy and PEG placement next week. 08/24: Updated medical status and CT report with Mrs. Cooley. All questions answered. 08/25: Mrs. Cooley requested to speak to me regarding initiation of comfort measures only. She stated she would like to institute comfort measures only either today or tomorrow, after speaking with her son. All questions answered. 08/26: Family and palliative care team at bedside, decision made by Mrs. Cooley and family to initiate comfort measures today. All questions answered. This patient remains critically ill with one or more organ systems which are or may become a threat to life. I have spent in excess of 31 minutes discontinuously in the care and management of this patient. This time is exclusive of procedures, and includes, but is not limited to, evaluation of the patient, review of the medical record, discussions with family, consultants, nursing staff, or respiratory therapy, and documentation in the medical record. Physician Fadumo Richard MD August 26, 2016 11:41
--- NOTE | 2016-08-26 11:55 | HHI.HCPN ---
Reason for visit a. To assist with evaluation and management of symptoms including: Dyspnea, pain b. To assist medical decision maker(s) with: better understanding of current medical conditions; weighing benefits/burdens of medical treatment options; making medical treatment decisions. (LAURA RUIZ) Subjective/Interval History Patient seen and examined in ICU. No family at bedside. Discussed with nurse, Lacho and Dr. Atkinson. 08/24/16 - repeat CT head with evolution of left MCA territory infarction with mildly decreased edema, mass effect and midline shift. Remains on mech vent, FiO2 70%. Sedated on Diprivan, Fentanyl. Febrile, 101. Hypotensive off pressors. WBC 8.6. Sodium 146, serum osmolality 308. Tolerating tube feeding. Chest tube in place in right. . Family/friend interactions 7:45am: Call from daughterAna M to report she has returned to [place]. She reports family has decided to proceed with withdrawal of life support and transition to comfort measures. She hopes family will wait until 5pm after she gets off work. Family notified. 11am: Met with , son, daughter in law, aunt and other family. Medical update provided. and son indicate they are ready to proceed with withdrawal of life support. All family in agreement the patient would not have wanted to be on "life support this long." Son and verbalize wanting to move forward with withdrawal of life support as soon as possible. Phone Banker requested. Anticipatory guidance regarding withdrawal of life support provided. Private room requested. Questions answered. . (LAURA RUIZ) Advance Directives Living Will: Never completed Health Care Surrogate: Never completed Durable Power of Emergency Vehicle Dispatcher: Never completed (LAURA RUIZ) Advance Directive Specifics Health Care Surrogate(s): Spouse, Erika Cooley, Significant change in goals: NO CODE. Family desires transition to comfort focused care with compassionate withdrawal of life support. . (LAURA RUIZ) Objective Vital Signs Date Time Temp Pulse Resp B/P Pulse Ox O2 Delivery O2 Flow Rate FiO2 08/26/16 10:00 70 08/26/16 08:57 100 Ventilator 70 08/26/16 08:57 99 70 08/26/16 08:00 61 08/26/16 08:00 60 08/26/16 08:00 101.0 63 28 100/61 96 101/51 08/26/16 06:00 62 08/26/16 06:00 62 95/58 93/48 08/26/16 04:36 95 60 08/26/16 04:00 99.6 72 28 100/56 95 105/54 08/26/16 04:00 72 08/26/16 04:00 99.6 08/26/16 04:00 60 08/26/16 02:00 63 08/26/16 00:18 95 60 08/26/16 00:00 60 08/26/16 00:00 99.1 63 28 94/58 94 102/56 08/26/16 00:00 63 08/25/16 22:00 64 08/25/16 20:30 98.2 08/25/16 20:15 98 60 08/25/16 20:00 101.0 64 28 91/56 95 97/54 08/25/16 20:00 60 08/25/16 20:00 64 08/25/16 19:00 94 Mechanical Ventilator 60 08/25/16 18:18 66 08/25/16 18:00 63 56/ 08/25/16 17:16 95 60 08/25/16 17:12 63 56/ 08/25/16 16:29 99.1 85 28 108/62 94 97/54 08/25/16 16:28 63 08/25/16 16:17 70 08/25/16 14:01 94 60 08/25/16 14:01 85 28 131/96 94 122/65 08/25/16 14:00 65 08/25/16 14:00 89 28 126/68 94 08/25/16 13:30 67 28 89/57 93 82/52 08/25/16 13:00 67 28 91/59 93 83/53 08/25/16 12:30 64 28 89/59 93 82/53 08/25/16 12:22 63 08/25/16 12:21 70 08/25/16 12:00 63 28 88/57 93 81/52 08/25/16 11:47 93 60 08/25/16 11:30 60 28 90/58 93 83/56 Intake & Output 08/26/16 08/26/16 06:59 18:59 Intake Total 2079 ml Output Total 810 ml Balance 1269 ml IV Total 1118 ml Tube Feeding 961 ml Output Urine Total 750 ml Chest Tube Drainage Total 60 ml # Bowel Movements 0 Physical Exam CONSTITUTIONAL/GENERAL: This is middle aged, critically ill male, sedated on the ventilator. TUBES/LINES/DRAINS: ETT, OG, Simon catheter, right chest tube,right chest port , Simon. SKIN: No jaundice, rashes, or lesions. Ecchymoses on upper extremities. No wounds seen anteriorly. Skin temperature appropriate. Not diaphoretic. EYES: eyes closed. CARDIOVASCULAR: Regular rate and rhythm without murmurs, gallops, or rubs. RESPIRATORY/CHEST: Right chest tube, Symmetric, unlabored respirations on vent. Scattered course breath sounds. GASTROINTESTINAL: Abdomen soft, nondistended. Bowel sounds hypoactive. GENITOURINARY: Without palpable bladder distension. Simon catheter in place. MUSCULOSKELETAL: Extremities with trace edema. No mottling or clubbing. Right hemiplegia. NEUROLOGICAL: Sedated on mech vent. PSYCHIATRIC: Sedated. . (LAURA RUIZ) Diagnostic Tests Laboratory Laboratory Tests Test 08/23/16 08/24/16 08/24/16 08/25/16 20:10 05:05 23:50 11:48 Sodium Level 146 MEQ/L 147 MEQ/L 145 MEQ/L (136-145) (136-145) (136-145) Serum Osmolality 310 MOSM/KG 315 MOSM/KG 309 MOSM/KG (275-295) (275-295) (275-295) White Blood Count 6.9 TH/MM3 (4.0-11.0) Red Blood Count 3.11 MIL/MM3 (4.50-5.90) Hemoglobin 9.7 GM/DL (13.0-17.0) Hematocrit 28.7 % (39.0-51.0) Mean Corpuscular Volume 92.2 FL (80.0-100.0) Mean Corpuscular Hemoglobin 31.3 PG (27.0-34.0) Mean Corpuscular Hemoglobin 33.9 % Concent (32.0-36.0) Red Cell Distribution Width 14.4 % (11.6-17.2) Platelet Count 114 TH/MM3 (150-450) Mean Platelet Volume 9.3 FL (7.0-11.0) Potassium Level 4.4 MEQ/L (3.5-5.1) Chloride Level 109 MEQ/L (98-107) Carbon Dioxide Level 31.9 MEQ/L (21.0-32.0) Anion Gap 6 MEQ/L (5-15) Blood Urea Nitrogen 29 MG/DL (7-18) Creatinine 0.72 MG/DL (0.60-1.30) Estimat Glomerular Filtration 116 ML/MIN Rate (>89) Random Glucose 120 MG/DL (74-106) Calcium Level 7.9 MG/DL (8.5-10.1) Phosphorus Level 3.2 MG/DL (2.5-4.9) Magnesium Level 2.6 MG/DL (1.5-2.5) Blood Gas Puncture Site HERMELINDA Blood Gas Patient Temperature 98.6 Blood Gas HCO3 27 mmol/L (22-26) Blood Gas Base Excess 3.2 mmol/L (-2-2) Blood Gas Oxygen Saturation 92 % (90-100) Arterial Blood pH 7.44 (7.380-7.420) Arterial Blood Partial 40 mmHg (38-42) Pressure CO2 Arterial Blood Partial 73 mmHg Pressure O2 (61-120) Arterial Blood Oxygen Content 12.3 Vol % (12.0-20.0) Arterial Blood 1.4 % (0-4) Carboxyhemoglobin Arterial Blood Methemoglobin 1.3 % (0-2) Blood Gas Hemoglobin 9.4 G/DL (12.0-16.0) Oxygen Delivery Device VENTILATOR Blood Gas Ventilator Setting A/C28/600/PEEP5 Blood Gas Inspired Oxygen 60 % Test 08/25/16 08/25/16 08/26/16 08/26/16 11:50 23:30 04:10 05:15 Sodium Level 145 MEQ/L 146 MEQ/L 146 MEQ/L (136-145) (136-145) (136-145) Potassium Level 4.2 MEQ/L 4.3 MEQ/L (3.5-5.1) (3.5-5.1) Chloride Level 109 MEQ/L 109 MEQ/L (98-107) (98-107) Carbon Dioxide Level 30.3 MEQ/L 30.8 MEQ/L (21.0-32.0) (21.0-32.0) Anion Gap 6 MEQ/L (5-15) 6 MEQ/L (5-15) Blood Urea Nitrogen 31 MG/DL (7-18) 32 MG/DL (7-18) Creatinine 0.78 MG/DL 0.87 MG/DL (0.60-1.30) (0.60-1.30) Estimat Glomerular Filtration 105 ML/MIN 93 ML/MIN (>89) Rate (>89) Random Glucose 119 MG/DL 117 MG/DL (74-106) (74-106) Serum Osmolality 307 MOSM/KG 308 MOSM/KG 308 MOSM/KG (275-295) (275-295) (275-295) Calcium Level 7.8 MG/DL 7.8 MG/DL (8.5-10.1) (8.5-10.1) White Blood Count 8.6 TH/MM3 (4.0-11.0) Red Blood Count 3.09 MIL/MM3 (4.50-5.90) Hemoglobin 9.5 GM/DL (13.0-17.0) Hematocrit 29.0 % (39.0-51.0) Mean Corpuscular Volume 93.6 FL (80.0-100.0) Mean Corpuscular Hemoglobin 30.8 PG (27.0-34.0) Mean Corpuscular Hemoglobin 32.9 % Concent (32.0-36.0) Red Cell Distribution Width 14.7 % (11.6-17.2) Platelet Count 109 TH/MM3 (150-450) Mean Platelet Volume 9.6 FL (7.0-11.0) Phosphorus Level 3.2 MG/DL (2.5-4.9) Magnesium Level 2.3 MG/DL (1.5-2.5) Blood Gas Puncture Site LT RADIAL Blood Gas Patient Temperature 98.6 Blood Gas HCO3 28 mmol/L (22-26) Blood Gas Base Excess 3.7 mmol/L (-2-2) Blood Gas Oxygen Saturation 93 % (90-100) Arterial Blood pH 7.42 (7.380-7.420) Arterial Blood Partial 44 mmHg (38-42) Pressure CO2 Arterial Blood Partial 77 mmHg Pressure O2 (61-120) Arterial Blood Oxygen Content 12.1 Vol % (12.0-20.0) Arterial Blood 1.7 % (0-4) Carboxyhemoglobin Arterial Blood Methemoglobin 1.0 % (0-2) Blood Gas Hemoglobin 9.2 G/DL (12.0-16.0) Oxygen Delivery Device VENTILATOR Blood Gas Ventilator Setting AC28/600/+5 Blood Gas Inspired Oxygen 60 % (ROSA ELENALAURAKAYLIN ARGUELLES) Result Diagram: 08/26/1640908/26/16409 Microbiology Microbiology Date/Time Procedure Status Source Growth 08/22/16 09:49 Aerobic Blood Culture - Preliminary Resulted Blood Peripheral NO GROWTH IN 4 DAYS 08/22/16 09:49 Anaerobic Blood Culture - Preliminary Resulted Blood Peripheral NO GROWTH IN 4 DAYS Imaging Last Impressions Chest X-Ray 08/26/16 0600 Signed Impressions: Service Date/Time: Friday, August 26, 2016 04:10 - CONCLUSION: No pneumothorax. Developing consolidation within the right lung base. Murphy Persaud Jr., MD Head CT 08/24/16 0900 Signed Impressions: Service Date/Time: Wednesday, August 24, 2016 09:50 - CONCLUSION: Evolution of the left middle cerebral artery territory infarction with mildly decreased edema, mass effect and midline shift. Barrett Holman MD Head CTA 08/16/16 0207 Signed Impressions: Service Date/Time: Tuesday, August 16, 2016 04:10 - CONCLUSION: Thrombosed left middle cerebral artery with associated large subacute cerebral infarct. Neftayl Holden MD Neck CTA 08/16/16 0000 Signed Impressions: Service Date/Time: Tuesday, August 16, 2016 04:10 - CONCLUSION: 1. Extracranial carotids are normal. Also normal vertebral arteries. 2. Known malignant right upper lobe mass. Mediastinal and hilar lymphadenopathy seen in the upper chest. Neftaly Holden MD IVC Filter Placement X-Ray 08/16/16 0000 Signed Impressions: Service Date/Time: Tuesday, August 16, 2016 10:30 - CONCLUSION: Uncomplicated inferior vena cava filter placement as above. Israel Okeefe MD Head Magnetic Resonance Angiography 08/16/16 0000 Signed Impressions: Service Date/Time: Tuesday, August 16, 2016 10:27 - CONCLUSION: Markedly abnormal cerebral perfusion corresponding to the large MCA occlusion on the left. Harshad Campbell MD FACR Brain MRI 08/16/16 0000 Signed Impressions: Service Date/Time: Tuesday, August 16, 2016 10:27 - CONCLUSION: Large area of infarction involving the left Sylvian region. There is occlusion of the distal left MCA. There is some collateralization distally. Harshad Campbell MD FACR Lung Biopsy CT 08/15/16 0000 Signed Impressions: Service Date/Time: July 08:22 - CONCLUSION: Uncomplicated CT guided biopsy of the right upper lobe lung mass. Neftaly Rodriguez MD CT Angiography 08/15/16 0000 Signed Impressions: Service Date/Time: July 13:22 - CONCLUSION: 1. There is acute appearing PE in the right lower lobe segmental and left lower lobe subsegmental pulmonary arteries. These PE are new since the prior CT from 07/09/2016. 2. Small right pneumothorax. 3. Right upper lobe pulmonary mass remains present and measures 4.9 cm. There is associated mediastinal, right hilar, and right supraclavicular lymphadenopathy suspicious for lymphatic spread of disease. Neftaly Rodriguez MD Procedures 08/16/16 IVC filter 08/15/16 intubated 08/15/16 chest tube (LAURA RUIZ) Assessment and Plan Disease Oriented Problem List: (1) Respiratory failure Comment: secondary to Pulmonary embolism (2) Lung cancer Comment: Invasisve Adenocarcinoma - primary lung - not a candidate for treatment at this time (3) Stroke (4) Pulmonary embolism (5) DVT (deep venous thrombosis) Comment: not a candidate for anticoagulation due to nature of brain injury (6) Non-STEMI (non-ST elevated myocardial infarction) Symptom Scale: (1) Pain 0-10 Scale: Unable to quantify Comment: secondary to malignancy, recent MCA ischemic infarct, pneumothorax post chest tube, intubation, DVT/PE, bedbound status, etc. On Fentanyl and Diprivan. . (2) Dyspnea 0-10 Scale: Unable to quantify Comment: Lung ca, PE and Pneumothorax - w hx of COPD, remains on vent. Pertinent Non-Medical Issues Psychosocial: . Has a son, Neftaly and daughter. Spiritual: Yazidism Legal: Patient incapacitated to make his health care decisions, uncertain if he will regain capacity given Left MCA infarct. According to [place] statutes, health care proxy decision making falls to his spouse. Ethical issues impacting care: No known concerns at this time. . Important Contacts * Erika Chávez, / HCP, * Neftaly Chávez, son, Prognosis Prognosis is extremely poor in light of malignancy (not a candidate for chemo or radiation), large left MCA stroke, recent MA, recent PE, recent DVT, unable to be on anticoagulation due to the nature of hemorrhage in the brain and high risk for further embolic events. . Code Status: No Code Plan * Decision Maker: Patient incapacitated to make his health care decisions, unlikely to regain capacity given Left MCA infarct. According to [place] statutes, health care proxy decision making falls to his spouse. * NO CODE * 08/26/16 - Met with , son, daughter in law, aunt and other family. Medical update provided. and son indicate they are ready to proceed with withdrawal of life support. All family in agreement the patient would not have wanted to be on "life support this long." Son and verbalize wanting to move forward with withdrawal of life support as soon as possible. Phone Banker requested. Anticipatory guidance regarding withdrawal of life support provided. Private room requested. Questions answered. Declined hospice at this time, will offer in AM if patient survives. * Exhibits B & C on chart signed. * SYMPTOMS: Dyspnea: secondary to malignancy, PE, COPD, etc. remains on mech vent. Pain: likely secondary to malignancy, recent left MCA ischemic infarct, pneumothorax post chest tube, intubation, DVT/PE, bedbound status, etc. On Fentanyl and Diprivan. No new medication recommendations at this time. * Palliative care will continue to follow to assist with symptom management and clarification of treatment goals as needed. . (LAURA RUIZ) Time Spent Total Floor Time (mins): 90 Face to Face Time (mins): 60 >50% Counseling/Coord of Care: Yes (LAURA RUIZ) Attestation To help prompt me to consider important information that might be impacting today's encounter and assessment, information from prior notes written by myself or my colleagues may have been "brought forward" into today's note. My signature on this note, however, is an attestation that I personally performed the exam, history, and/or decision-making noted today, and, unless otherwise indicated, the interactions with patient, family, and staff as well as the review of records all occurred today. I also attest that the listed assessment and stated plan reflect my best clinical judgment today based on the combination of historical information, prior notes, and today's exam/ interactions. When time spent is documented, it refers only to time spent today by the signer, or if indicated, combined time spent today by collaborating physician/nurse practitioner. (LAURA RUIZ) Collaborating MD Comments Chart reviewed, case discussed with palliative care FENCE MAKER -- Laura Ruiz. I have reviewed above note and I concur. has decided , that given the current prognosis, the patient's wishes would best be honored by foregoing further aggressive care, withdrawing life support and transitioning to "comfort measures only." At time of my visit: Patient is intubated, mechanically ventilated and sedated in MICU. Eyes open periodically but is not tracking me. Right chest tube in place. Bilateral faint ronchi. No evidence of respiratory distress on vent. Sedated/minimally responsive. I personally wrote orders to help minimize any suffering at time of extubation and post compassionate withdrawal of life support. Family received anticipatory guidance per FENCE MAKER notes. Combined physician /FENCE MAKER time on floor over 90 minutes with > 50% counseling coordination of care. (Santiago Iverson MD) LAURA RUIZ August 26, 2016 11:55 Santiago Iverson MD August 26, 2016 18:28
[2016-08-26] MEDS ORDERED: LORazepam 2 MG/ML VIAL IVS PRN (12:00)
[2016-08-26] MEDS ORDERED: FUROSEMIDE 20 MG/2 ML VIAL IV PRN (12:00)
[2016-08-26] MEDS ORDERED: BISACODYL 10 MG SUPP RECTAL PRN (12:00)
[2016-08-26] MEDS ORDERED: LORazepam 2 MG/ML VIAL IV SCH (12:00)
[2016-08-26] MEDS ORDERED: ACETAMINOPHEN 650 MG SUPP RECTAL PRN (12:00)
[2016-08-26] MEDS ORDERED: LORazepam 2 MG/ML VIAL IV PRN ×2 (12:00)
[2016-08-26] MEDS ORDERED: HYDROmorphone HCL PF 2 MG/ML VIAL IV PRN ×2 (12:00)
--- NOTE | 2016-08-26 16:16 | HHI.DS ---
Summary Note Date of : August 26, 2016 Time Of : 1437 Admission Date Aug 15, 2016 at 13:23 Admitting Diagnosis Diagnosis at Time of : (1) Lung cancer ICD Code: C34.90 (2) DVT (deep venous thrombosis) ICD Code: I82.409 Brief History This is a 50-year-old male seen in [facility]. I was consulted by by the radiologist to evaluate patient complaining of shortness of breath and for medical management. He reports of increasing shortness of breath for the past 2 days. He has dyspnea on exertion but no leg swelling and pain, weight gain, fever, chest pain, cough and wheezing. He has history of COPD and continues to smoke. He also has a history of left lower extremity DVT diagnosed a few months ago and has been off Eliquis for at least a week because of planned procedures he had a port placement 2 days ago and a lung biopsy secondary to right lung mass earlier today. Serial chest x-ray shows a tiny right apical pneumothorax which according to the radiologist should not cause this significant dyspnea. He was also hypoxic 81% on room air. On 4 L he only improved to 85% and has been placed on nonrebreather. Discussed with Dr. Gil and ROPU RN, will admit patient to ICU and obtain CTA and restart anticoagulation CBC/BMP: 08/26/16 0410 08/26/16 0410 Significant Findings Laboratory Tests Test 08/23/16 08/24/16 08/24/16 08/25/16 20:10 05:05 23:50 11:48 Sodium Level 146 MEQ/L 147 MEQ/L (136-145) (136-145) Serum Osmolality 310 MOSM/KG 315 MOSM/KG 309 MOSM/KG (275-295) (275-295) (275-295) Red Blood Count 3.11 MIL/MM3 (4.50-5.90) Hemoglobin 9.7 GM/DL (13.0-17.0) Hematocrit 28.7 % (39.0-51.0) Platelet Count 114 TH/MM3 (150-450) Chloride Level 109 MEQ/L (98-107) Blood Urea Nitrogen 29 MG/DL (7-18) Random Glucose 120 MG/DL (74-106) Calcium Level 7.9 MG/DL (8.5-10.1) Magnesium Level 2.6 MG/DL (1.5-2.5) Blood Gas HCO3 27 mmol/L (22-26) Blood Gas Base Excess 3.2 mmol/L (-2-2) Arterial Blood pH 7.44 (7.380-7.420) Blood Gas Hemoglobin 9.4 G/DL (12.0-16.0) Test 08/25/16 08/25/16 08/26/16 08/26/16 11:50 23:30 04:10 05:15 Chloride Level 109 MEQ/L 109 MEQ/L (98-107) (98-107) Blood Urea Nitrogen 31 MG/DL (7-18) 32 MG/DL (7-18) Random Glucose 119 MG/DL 117 MG/DL (74-106) (74-106) Serum Osmolality 307 MOSM/KG 308 MOSM/KG 308 MOSM/KG (275-295) (275-295) (275-295) Calcium Level 7.8 MG/DL 7.8 MG/DL (8.5-10.1) (8.5-10.1) Sodium Level 146 MEQ/L 146 MEQ/L (136-145) (136-145) Red Blood Count 3.09 MIL/MM3 (4.50-5.90) Hemoglobin 9.5 GM/DL (13.0-17.0) Hematocrit 29.0 % (39.0-51.0) Platelet Count 109 TH/MM3 (150-450) Blood Gas HCO3 28 mmol/L (22-26) Blood Gas Base Excess 3.7 mmol/L (-2-2) Arterial Blood Partial 44 mmHg (38-42) Pressure CO2 Blood Gas Hemoglobin 9.2 G/DL (12.0-16.0) Imaging Last 24 hours Impressions Chest X-Ray 08/23/16 0600 Signed Impressions: Service Date/Time: Tuesday, August 23, 2016 03:20 - CONCLUSION: Right basilar pleural-parenchymal density likely pleural effusion and right basilar consolidation. Viral Frye MD Last Impressions Chest X-Ray 08/21/16 0000 Signed Impressions: Service Date/Time: Sunday, August 21, 2016 05:23 - CONCLUSION: 1. There is no evidence of pneumothorax. Israel Okeefe MD Head CT 08/20/16 1500 Signed Impressions: Service Date/Time: Saturday, August 20, 2016 16:25 - CONCLUSION: 1. No change in large nonhemorrhagic left MCA territory infarction with some mass effect as detailed above. Murphy Persaud Jr., MD Head CTA 08/16/16 0207 Signed Impressions: Service Date/Time: Tuesday, August 16, 2016 04:10 - CONCLUSION: Thrombosed left middle cerebral artery with associated large subacute cerebral infarct. Neftaly Holden MD Neck CTA 08/16/16 Signed Impressions: Service Date/Time: Tuesday, August 16, 2016 04:10 - CONCLUSION: 1. Extracranial carotids are normal. Also normal vertebral arteries. 2. Known malignant right upper lobe mass. Mediastinal and hilar lymphadenopathy seen in the upper chest. Neftaly Holden MD IVC Filter Placement X-Ray 08/16/16 Signed Impressions: Service Date/Time: Tuesday, August 16, 2016 10:30 - CONCLUSION: Uncomplicated inferior vena cava filter placement as above. Israel Okeefe MD Head Magnetic Resonance Angiography 08/16/16 Signed Impressions: Service Date/Time: Tuesday, August 16, 2016 10:27 - CONCLUSION: Markedly abnormal cerebral perfusion corresponding to the large MCA occlusion on the left. Harshad Campbell MD FACR Brain MRI 08/16/16 Signed Impressions: Service Date/Time: Tuesday, August 16, 2016 10:27 - CONCLUSION: Large area of infarction involving the left Sylvian region. There is occlusion of the distal left MCA. There is some collateralization distally. Harshad Campbell MD FACR Lung Biopsy CT 08/15/16 Signed Impressions: Service Date/Time: July 08:22 - CONCLUSION: Uncomplicated CT guided biopsy of the right upper lobe lung mass. Neftaly Rodriguez MD CT Angiography 08/15/16 0000 Signed Impressions: Service Date/Time: July 13:22 - CONCLUSION: 1. There is acute appearing PE in the right lower lobe segmental and left lower lobe subsegmental pulmonary arteries. These PE are new since the prior CT from 07/09/2016. 2. Small right pneumothorax. 3. Right upper lobe pulmonary mass remains present and measures 4.9 cm. There is associated mediastinal, right hilar, and right supraclavicular lymphadenopathy suspicious for lymphatic spread of disease. Neftaly Rodriguez MD Last 48 hours Impressions Chest X-Ray 08/20/16 0600 Signed Impressions: Service Date/Time: Saturday, August 20, 2016 03:45 - CONCLUSION: 1. Improving diffuse right-sided opacity. There is no evidence of pneumothorax. Israel Okeefe MD Head CT 08/19/16 1500 Signed Impressions: Service Date/Time: Friday, August 19, 2016 16:04 - CONCLUSION: Stable brain appearance Neftaly Abad MD Last [address] 08/18/16 0800 Signed Impressions: Service Date/Time: Thursday, August 18, 2016 20:37 - CONCLUSION: Evolving left MCA stroke into an area of encephalomalacia involving the left frontal temporal and parietal lobes. Diane Guzman MD Chest X-Ray 08/18/16 0600 Signed Impressions: Service Date/Time: Thursday, August 18, 2016 03:13 - CONCLUSION: No perceptible pneumothorax. Otherwise no change. Neftaly Holden MD Last [address] 08/17/16 0800 Signed Impressions: Service Date/Time: Wednesday, August 17, 2016 08:23 - CONCLUSION: 1. Evolving left MCA infarct. Galindo Vuong MD Head CTA 08/16/16 0207 Signed Impressions: Service Date/Time: Tuesday, August 16, 2016 04:10 - CONCLUSION: Thrombosed left middle cerebral artery with associated large subacute cerebral infarct. Neftaly Holden MD Neck CTA 08/16/16 0000 Signed Impressions: Service Date/Time: Tuesday, August 16, 2016 04:10 - CONCLUSION: 1. Extracranial carotids are normal. Also normal vertebral arteries. 2. Known malignant right upper lobe mass. Mediastinal and hilar lymphadenopathy seen in the upper chest. Neftaly Holden MD IVC Filter Placement X-Ray 08/16/16 0000 Signed Impressions: Service Date/Time: Tuesday, August 16, 2016 10:30 - CONCLUSION: Uncomplicated inferior vena cava filter placement as above. Israel Okeefe MD Head Magnetic Resonance Angiography 08/16/16 0000 Signed Impressions: Service Date/Time: Tuesday, August 16, 2016 10:27 - CONCLUSION: Markedly abnormal cerebral perfusion corresponding to the large MCA occlusion on the left. Harshad Campbell MD FACR Head CT 08/16/16 0000 Signed Impressions: Service Date/Time: Tuesday, August 16, 2016 00:56 - CONCLUSION: Large left sided cerebral edema as above, appearance most typical of a subacute middle cerebral artery distribution infarct. No bleed or definite mass. Neftaly Holden MD Chest X-Ray 08/16/16 0000 Signed Impressions: Service Date/Time: Tuesday, August 16, 2016 15:33 - CONCLUSION: 1. Uncomplicated line placement. No evidence of pneumothorax. 2. Decreasing right apical pneumothorax Israel Okeefe MD Chest X-Ray 08/16/16 0000 Signed Impressions: Service Date/Time: Tuesday, August 16, 2016 08:15 - CONCLUSION: 1. Interval intubation. 2. Placement of nasogastric tube with the tip in the distal esophagus. This could be advanced at least 7 cm. 3. Mild interval increase in size the small right apical pneumothorax. 4. Increasing opacity in the right lung base most consistent with infiltrate. Barrett Holman MD Brain MRI 08/16/16 0000 Signed Impressions: Service Date/Time: Tuesday, August 16, 2016 10:27 - CONCLUSION: Large area of infarction involving the left Sylvian region. There is occlusion of the distal left MCA. There is some collateralization distally. Harshad Campbell MD FACR Chest X-Ray 08/15/16 1300 Signed Impressions: Service Date/Time: July 12:55 - CONCLUSION: Stable tiny right apical pneumothorax. Neftaly Rodriguez MD Chest X-Ray 08/15/16 1200 Signed Impressions: Service Date/Time: July 11:51 - CONCLUSION: There is a new tiny apical right pneumothorax. Neftaly Rodriguez MD Last 72 hours Impressions Chest X-Ray 08/15/16 1300 Signed Impressions: Service Date/Time: July 12:55 - CONCLUSION: Stable tiny right apical pneumothorax. Neftaly Rodriguez MD Chest X-Ray 08/15/16 1200 Signed Impressions: Service Date/Time: July 11:51 - CONCLUSION: There is a new tiny apical right pneumothorax. Neftaly Rodriguez MD Chest X-Ray 08/15/16 1030 Signed Impressions: Service Date/Time: July 10:20 - CONCLUSION: No pneumothorax following recent right lung biopsy. Neftaly Rodriguez MD Lung Biopsy CT 08/15/16 0000 Signed Impressions: Service Date/Time: July 08:22 - CONCLUSION: Uncomplicated CT guided biopsy of the right upper lobe lung mass. Neftaly Rodriguez MD Chest X-Ray 08/15/16 0000 Signed Impressions: Service Date/Time: July 07:12 - CONCLUSION: 1. No pneumothorax is visualized. Right chest wall [id number] distal tip is at the cavoatrial junction. 2. Right upper lobe pulmonary mass is again visualized. Neftaly Rodriguez MD CT Angiography 08/15/16 0000 Signed Impressions: Service Date/Time: July 13:22 - CONCLUSION: 1. There is acute appearing PE in the right lower lobe segmental and left lower lobe subsegmental pulmonary arteries. These PE are new since the prior CT from 07/09/2016. 2. Small right pneumothorax. 3. Right upper lobe pulmonary mass remains present and measures 4.9 cm. There is associated mediastinal, right hilar, and right supraclavicular lymphadenopathy suspicious for lymphatic spread of disease. eNftaly Rodriguez MD Hospital Course Remarks/Hospital Course 08/15: Mr. Cooley is a 50 y/o CM with a PMHx of COPD who continues to smoke and is s/p R lung biopsy secondary to a recently found lung mass presenting with dyspnea. Prior to his biopsy today, he was being treated as an outpatient with a Medrol dose pack with Levaquin for a COPD exacerbation. He endorsed dyspnea on exertion today, but denied any fevers, chest pain, wheezing, cough, or LE edema/tenderness. He has a history of LLE DVT diagnosed in 07/05, but has been off his anticoagulation for approximately 11 days (Previously on Xarelto). He had a port placed 2 days ago and lung biopsy today. He has been short of breath since 1 day prior to the procedure. After his biopsy, he was found to have a small apical pneumothorax on CXR, diaphoretic, and tachypneic with hypoxia of 81 % on room air. He was placed on 4L and improved to 85%. He was then placed on a non-rebreather and transferred to the ICU. On arrival he was tachypneic with oxygen saturation in the upper 80s. CTA showed acute pulmonary embolisms of the BL lower lobes with a small R pneumothorax. Therefore a R sided chest tube was placed and heparin drip without bolus was initiated. The patient has been continued on Levaquin ABX, has been give steroids with multiple breathing treatments, and has been placed on BiPAP. 08/16: Patient was noted to have an elevated troponin and was diagnosed to have a non-ST elevation SD last evening. He was on BiPAP at the time with full facemask. It was noticed that he was not moving the right side of his body when he was turned to administer rectal aspirin and subsequent head CT and CTA revealed significant edema in the left cerebral hemisphere and occluded left MCA with thrombus. Neurology was contacted by Dr. Martínez and due to concern for hemorrhagic transformation heparin was held. Dr. Martínez discussed the case with Dr. Okeefe from interventional radiology who did not feel that the patient was a good candidate for clot retrieval due to high risk for hemorrhagic transformation given the amount of cerebral edema and extent of infarct. Patient was given mannitol. This morning when I evaluated patient was in BiPAP with full facemask with a dense right hemiplegia with some spontaneous movement involving his left upper extremity. He was intubated and placed on mechanical ventilation for airway protection and hyperventilation in view of cerebral edema as well as for borderline respiratory status. Subsequently he underwent MRI brain which showed large left MCA territory infarct with some collateral flow. IVC filter was placed by interventional radiology after discussion with Dr. Murry, his oncologist as patient is now off heparin and is at risk for recurrent PE. 08/17: Remains sedated, orally intubated on mechanical ventilation. On 3% saline overnight. Head CT done this morning shows slight increase in cerebral edema in the area of left MCA territory infarct which appears more hypodense. Remains on Levophed 10mcg/min. Moves left side spontaneously however not following commands. Right hemiplegia persists 08/18: Remains sedated, orally intubated on mechanical ventilation. Remains on 3 % saline, Levophed. Awakens on lightening sedation and moves left side spontaneously. Right hemiplegia persists though overnight cashier RN noticed some flickering movement in his fingers on the right. 08/19: Remains sedated, orally intubated on mechanical ventilation. Off Levophed. Awakens on lightening sedation and moves left side spontaneously. Right hemiplegia persists. Tolerating tube feeds. Spiked temperatures overnight. Parr cultures ordered. Suspect central fever versus infection. On Levaquin currently. 08/20: Remains sedated, orally intubated on mechanical ventilation. Awakens on lightening sedation and moves left side spontaneously. Right hemiplegia persists. Tolerating tube feeds. 08/21: Sedated, arousable, orally intubated on mechanical ventilation. Right hemiplegia persists. Moving left side spontaneously. Tolerating tube feeds. Starting diuresis with Lasix in view of positive fluid balance to mobilize fluid. 08/22:TMax 101.0. Repeat cultures performed .Patient continues on 3% normal saline, CT brain pending this a.m.. Patient moving left upper and lower extremities, spontaneously. No vasopressors needed, hemodynamically stable. Continued right hemiplegia. Patient's at bedside, requesting patient be made DNR and this a.m.. 08/23: Tmax 98.8. CT brain performed yesterday revealed slight increase in cerebral edema with a 6 mm right to left midline shift. Repeat CT of brain scheduled for Friday. Extensive discussion with neurology Dr. Jean, Palliative care team regarding the results, and decisions for goals of care. Continued right hemiplegia, with spontaneous movement of left upper and lower extremity. 08/24: Repeat CT brain performed today, show mild lead decreased edema still has midline shift. Continued right hemiplegia. 08/25: Sedated and intubated. No acute events overnight. Extensive discussion with Mrs. Chávez, states she wants to have withdrawal of care performed today or tomorrow. She plans to discuss with her children and return and inform me of her plans for comfort measures only. The patient continues on every 6 hours sodium and Osmo. No change in neurological evaluation when off sedation. 08/26: The patient remains sedated, on propofol. The patient continues on 3% normal saline at 25 cc/hr. Entire family at bedside, palliative team present. Request comfort measures only, plans for withdrawal this afternoon. 08/26: With family , friends and spiritual support. Comfort care measures were instituted, and the patient at 2:37 PM. Fadumo Atkinson MD August 26, 2016 16:16
== END 2016-08-26 14:37 | disposition expired | DRG 166 ==
LOC: HRAD 06:28 → HRIP 06:31 → HRAD 13:08 → HRIP 13:23 → HIMW 13:35 → HIMN 08-26 12:00
PROVIDERS: ADMIT Internal Medicine Critical Care Medicine; ATTEND Internal Medicine Critical Care Medicine
PROC: 02HV33Z Insertion of Infusion Device into Superior Vena Cava, Percutaneous Approach (ICD-10-PCS; 2016-08-13)
PROC: 0BBK3ZX Excision of Right Lung, Percutaneous Approach, Diagnostic (ICD-10-PCS; principal; 2016-08-15)
PROC: 0W9930Z Drainage of Right Pleural Cavity with Drainage Device, Percutaneous Approach (ICD-10-PCS; 2016-08-15)
PROC: 5A09457 Assistance with Respiratory Ventilation, 24-96 Consecutive Hours, Continuous Positive Airway Pressure (ICD-10-PCS; 2016-08-15)
PROC: 06H03DZ Insertion of Intraluminal Device into Inferior Vena Cava, Percutaneous Approach (ICD-10-PCS; 2016-08-16)
PROC: 5A1955Z Respiratory Ventilation, Greater than 96 Consecutive Hours (ICD-10-PCS; 2016-08-16)
PROC: 05HN33Z Insertion of Infusion Device into Left Internal Jugular Vein, Percutaneous Approach (ICD-10-PCS; 2016-08-16)
PROC: 0BH17EZ Insertion of Endotracheal Airway into Trachea, Via Natural or Artificial Opening (ICD-10-PCS; 2016-08-16)
DX: J95.811 Postprocedural pneumothorax (principal); G93.6 Cerebral edema; I21.4 Non-ST elevation (NSTEMI) myocardial infarction; I26.99 Other pulmonary embolism without acute cor pulmonale; I63.512 Cerebral infarction due to unspecified occlusion or stenosis of left middle cerebral artery; C34.11 Malignant neoplasm of upper lobe, right bronchus or lung; I42.9 Cardiomyopathy, unspecified; D68.69 Other thrombophilia; G81.91 Hemiplegia, unspecified affecting right dominant side; G93.40 Encephalopathy, unspecified; J96.01 Acute respiratory failure with hypoxia; J44.1 Chronic obstructive pulmonary disease with (acute) exacerbation; D69.6 Thrombocytopenia, unspecified; Y84.8 Other medical procedures as the cause of abnormal reaction of the patient, or of later complication, without mention of misadventure at the time of the procedure; Y82.9 Unspecified medical devices associated with adverse incidents; Y92.239 Unspecified place in hospital as the place of occurrence of the external cause; Z86.718 Personal history of other venous thrombosis and embolism; Z95.5 Presence of coronary angioplasty implant and graft; I25.10 Atherosclerotic heart disease of native coronary artery without angina pectoris; I25.2 Old myocardial infarction; F31.9 Bipolar disorder, unspecified; E78.5 Hyperlipidemia, unspecified; Z85.820 Personal history of malignant melanoma of skin; F17.200 Nicotine dependence, unspecified, uncomplicated; F41.9 Anxiety disorder, unspecified; I10 Essential (primary) hypertension; E11.9 Type 2 diabetes mellitus without complications; M15.9 Polyosteoarthritis, unspecified; Z51.5 Encounter for palliative care; M85.80 Other specified disorders of bone density and structure, unspecified site; R29.810 Facial weakness; R59.0 Localized enlarged lymph nodes; I45.10 Unspecified right bundle-branch block; G93.89 Other specified disorders of brain; Z66 Do not resuscitate; M81.0 Age-related osteoporosis without current pathological fracture
CPT/HCPCS: 31500; 32405; 32551; 36556; 36561; 36600; 36620; 37191; 70450; 70496; 70498; 70552; 70553; 71010; 71275; 76937; 77001; 77012; 80048; 80053; 80061; 80185; 80186; 81001; 81240; 81241; 82330; 82550; 82552; 82805; 82948; 83605; 83735; 83880; 83930; 84100; 84295; 84484; 85025; 85027; 85303; 85306; 85597; 85598; 85610; 85613; 85670; 85730; 86147; 87040; 87070; 87086; 87205; 87449; 87641; 88305; 88341; 88342; 93005; 93306; 94002; 94003; 94640; 94664; 94770; 95819; 99152; 99153; A9579; C1769; C1788; C1880; J0360; J0690; J1165; J1170; J1642; J1644; J1815; J1940; J1956; J2060; J2150; J2250; J2270; J2930; J3010; J3370; J7030; J7050; Q2009; Q9967